=== PATIENT | male | born 1980 | race Caucasian/White ===

== ENCOUNTER 2022-03-13 06:24 | Inpatient (IN) | payer OTHER, SELFPAY ==
[2022-03-13] VITALS (29 sets, daily range): BP systolic 130–170; BP diastolic 94–113; PULSE 62–153; RESP 15–32; TEMP 36.2–38.1; O2SAT 93–99; BMI 25.2
--- NOTE | 2022-03-13 | ECHO_ITS ---
Patient Info Name: Eyal Curry Age: 41 years : 1980 Gender: Male Ht: 71 in Wt: 180 lbs BSA: 2.03 m2 HR: 98 bpm BP: 135 / 97 mmHg Heart Rhythm: Sinus Rhythm Technical Quality: Fair Exam Date: 03/13/2022 3:20 PM Exam Location: [facility] Card Pulmonary Patient Status: Inpatient Admit Date: 03/13/2022 Staff Ordering Physician: Geoff Gonzalez MD Special Trackwork Blacksmith: Nancy Lopez RDCS Attending Provider: Geoff Gonzalez MD Exam Type: CA echo doppler color flow Study Info Indications - HIGH BP, PNA Complete two-dimensional, color flow and Doppler transthoracic echocardiogram is performed. Summary 1. Complete two-dimensional, color flow and Doppler transthoracic echocardiogram is performed. 2. Normal left ventricular size with mild concentric left ventricular hypertrophy. Good systolic function of all segments with ejection fraction of 60-65%. No focal wall motion abnormalities. Diastolic function is indeterminate. 3. Left atrial chamber dimension is mildly enlarged. 4. No pulmonary hypertension, estimated pulmonary arterial systolic pressure is 29 mmHg. 5. No significant valve disease. 6. Normal sinus rhythm. Left Ventricle Left ventricular chamber dimension is normal. Left ventricular systolic function is normal, estimated at 60-65%. There is mildly increased left ventricular wall thickness. Left ventricular septal wall motion is normal. The left ventricular diastolic function is indeterminate. Right Ventricle Right ventricular chamber dimension is normal. Right ventricular systolic function is normal. Left Atria Left atrial chamber dimension is mildly enlarged. Right Atria Right atrial chamber dimension is normal. Aortic Valve The aortic valve is trileaflet. There is no aortic valve sclerosis. There is no aortic valve stenosis. There is no aortic valve regurgitation. Pulmonic Valve The pulmonic valve is normal. There is no pulmonic valve stenosis. There is no pulmonic regurgitation. Mitral Valve The mitral valve has normal leaflets. There is no mitral valve stenosis. There is trace mitral valve regurgitation. Tricuspid Valve The tricuspid valve leaflets are normal. There is no significant tricuspid valve stenosis. There is trace tricuspid valve regurgitation. No pulmonary hypertension, estimated pulmonary arterial systolic pressure is 29 mmHg. Pericardium/Pleural The pericardium appears normal. There is no pericardial effusion. Inferior Vena Cava Normal inferior vena cava with >50% collapse upon inspiration consistent with Empty right atrial pressure, 10 mmHg. Aorta The aortic root size at the sinus of Valsalva is normal. The prox ascending aorta size is normal. Left Ventricular Outflow Tract Name Value Normal LVOT Doppler LVOT Peak Gradient 5 mmHg LVOT Mean Gradient 2 mmHg LVOT VTI 19 cm LVOT VTI/AV VTI Ratio 0.9 Pulmonic Valve Name Value Normal
--- NOTE | ~2022-03-13 | CT_ITS ---
EXAMINATION: CTA chest abdomen DATE: 03/13/2022 07:00 INDICATION: Chest pain. Shortness of breath. TECHNIQUE: Computed tomographic angiography (CTA) of the chest and abdomen was performed with 100 mL Omnipaque-350 intravenous contrast. Automated exposure control and iterative reconstruction technique were employed. The dose-length product was 886.19 mGy-cm. Maximum intensity projection 3D-reconstruc tions of the aorta and other arteries were constructed by the technologist on a separate workstation. COMPARISON: None. FINDINGS: CHEST CTA: In the right lung upper lobe, there are nodules, groundglass opacities, airspace opacities, and septa l thickening. One of the nodules was cavitary. There is a small nodule in right middle lobe. There is a trace right pleural effusion. The heart size is normal. No pericardial effusion. There is no pulmo nary embolus. There is mild right hilar lymphadenopathy. Thoracic aorta is normal. There is mild thor acic spondylosis. ABDOMEN CTA: There is diffuse hepatic steatosis. The gallbladder, spleen, pancreas, adrenal glands, and kidneys ar e normal. There are no dilated loops of bowel. The appendix is normal. There are no pathologically en larged lymph nodes. There is no free intraperitoneal fluid. Abdominal aorta is normal. There is no si gnificant stenosis of the celiac axis, superior mesenteric artery, renal arteries, or inferior mesent geno artery. There is mild lumbar spondylosis. IMPRESSION: 1. Necrotizing pneumonia in right lung upper lobe. Small nodule in right middle lobe, likely infectio n. 2. Mild right hilar lymphadenopathy, likely reactive. 3. Normal aorta. 4. Diffuse hepatic steatosis. Reviewed, dictated and finalized at location A. IMPRESSION: 1. Necrotizing pneumonia in right lung upper lobe. Small nodule in right middle lobe, likely infection. 2. Mild right hilar lymphadenopathy, likely reactive. 3. Normal aorta. 4. Diffuse hepatic steatosis.
--- NOTE | ~2022-03-13 | US_ITS ---
US right upper quadrant DATE: 03/14/2022 08:31 INDICATION: Elevated liver function tests TECHNIQUE: Real-time imaging of liver, pancreas, gallbladder COMPARISON: March 13, 2022 CTA chest abdomen FINDINGS: There is hepatic steatosis. No hepatic space-occupying mass lesion is evident. Normal hepat opedal portal venous flow direction. No pancreatic mass lesion is evident. No gallstones or gallbladder wall thickening. Negative sonographic Moseley's sign. The common bile bhupinder t measures 5.8 mm, within normal range. IMPRESSION: Hepatic steatosis Reviewed, dictated and finalized at Location A. Reviewed, dictated and finalized at location A. IMPRESSION: Hepatic steatosis
--- NOTE | ~2022-03-13 | NM_ITS ---
EXAMINATION: NM renal flow and function DATE: 03/18/2022 14:38 INDICATION: Acute kidney injury. TECHNIQUE: 7.9 mCi Tc-99m MAG3 was administered IV. The patient was scanned in the supine position. A posterior abdominal radionuclide angiogram was obtained. A subsequent time course of static images of the kidneys, ureters, and bladder was obtained. COMPARISON: ultrasound 03/15/22 FINDINGS: The posterior abdominal radionuclide angiogram and sequential static images show normal siz e, position, and morphology of the kidneys. Peak renal parenchymal uptake was >20 min in right kidney and >20 min in left kidney (normal peak 3-5 minutes). The relative early renal uptake was 59% on th e right and 41% on the left (<40% is abnormal). No abnormalities of the ureters or bladder are seen. T1/2 for clearance of activity from the right kidney and proximal collecting system was too long to m easure. T1/2 for clearance of activity from the left kidney and proximal collecting system was too long to me asure. IMPRESSION: 1. Symmetric kidney function. 2. Delayed contrast uptake and clearance in both kidneys, consistent with decreased renal function. Reviewed, dictated and finalized at location B. IMPRESSION: 1. Symmetric kidney function. 2. Delayed contrast uptake and clearance in both kidneys, consistent with decr eased renal function.
--- NOTE | ~2022-03-13 | US_ITS ---
EXAMINATION: US renal BI DATE: 03/15/2022 11:08 INDICATION: Acute kidney injury TECHNIQUE: Multiple grayscale and Doppler ultrasound images of the kidneys were obtained. COMPARISON: None. FINDINGS: The right kidney measures 12.8 x 6.1 x 7.5 cm. The left kidney measures 12.3 x 5.8 x 6.1 cm . The kidneys demonstrate normal parenchymal echogenicity. There is no hydronephrosis. The bladder is unremarkable. IMPRESSION: 1. Normal kidneys without hydronephrosis. Reviewed, dictated and finalized at location B.
--- NOTE | 2022-03-13 06:27 | ECG_ITS ---
Measurements Intervals [place] Rate: 144 P: 65 MD: 133 QRS: 34 QRSD: 97 T: 70 QT: 327 QTc: 507 Interpretive Statements SINUS TACHYCARDIA, POSSIBLE ATRIAL FLUTTER NONSPECIFIC ST & T-WAVE ABNORMALITY ABNORMAL RHYTHM ECG NO PREVIOUS ECG AVAILABLE FOR COMPARISON Electronically Signed On 03-13-2022 13:45:35 CDT by Mariposa Crowe M.D.
--- NOTE | 2022-03-13 06:34 | ED.CHESTPAIN ---
HPI - Chest Pain General Chief Complaint: Chest Pain <Zabrina Torres Flowers III, DO - Last Filed: 03/13/22 07:15> Stated Complaint: Chest pain <Zabrina Torres Flowers III, DO - Last Filed: 03/13/22 07:15> Time Seen by Provider: 03/13/22 06:32 <Zabrina Torres Flowers III, DO - Last Filed: 03/13/22 07:15> Source: patient <Zabrina Torres Flowers III, DO - Last Filed: 03/13/22 07:15> Mode of arrival: ambulatory <Zabrina Torres Flowers III, DO - Last Filed: 03/13/22 07:15> Limitations: no limitations <Zabrina Torres Flowers III, DO - Last Filed: 03/13/22 07:15> History of Present Illness HPI narrative: Pt presents with midsternal CP that radiates through to back that awoke him frm sleep about 2 hours ago. Pt has never had an episode like this. Pt has no significant medical history. Pt is a smoker and denies FH of CAD <Zabrina Torres Flowers III, DO - Last Filed: 03/13/22 07:15> MD complaint: chest pain <Zabrina Torres Flowers III, DO - Last Filed: 03/13/22 07:15> Onset (ago): hour(s) (2) <Zabrina Torres Flowers III, DO - Last Filed: 03/13/22 07:15> Timing of current episode: constant <Zabrina Torres Flowers III, DO - Last Filed: 03/13/22 07:15> Prior episodes: No <Zabrina Torres Flowers III, DO - Last Filed: 03/13/22 07:15> Pain location: substernal <Zabrina Torres Flowers III, DO - Last Filed: 03/13/22 07:15> Pain radiation: back <Zabrina Torres Flowers III, DO - Last Filed: 03/13/22 07:15> Severity: severe <Zabrina Torres Flowers III, DO - Last Filed: 03/13/22 07:15> Quality: sharp <Zabrina Torres Flowers III, DO - Last Filed: 03/13/22 07:15> Relieving factors: nothing <Zabrina Torres Flowers III, DO - Last Filed: 03/13/22 07:15> Exacerbating factors: nothing <Zabrina Torres Flowers III, DO - Last Filed: 03/13/22 07:15> Associated symptoms: diaphoresis <Zabrina Torres Flowers III, DO - Last Filed: 03/13/22 07:15> Treatment prior to arrival: none <Zabrina Torres Flowers III, DO - Last Filed: 03/13/22 07:15> Risk Factors Coronary artery disease risk factors: smoking history <Zabrina Torres Flowers III, DO - Last Filed: 03/13/22 07:15> Thoracic aortic dissection risk factors: none <Zabrina Torres Flowers III, DO - Last Filed: 03/13/22 07:15> Related Data Allergies/Adverse Reactions: Allergies Allergy/AdvReac Type Severity Reaction Status Date / Time No Known Allergies Allergy Mild Verified 03/13/22 06:33 <Zabrina Torres Flowers III, DO - Last Filed: 03/13/22 07:15> Review of Systems Review of Systems: All systems reviewed & are unremarkable except as noted in HPI and below <Zabrina Torres Flowers III, DO - Last Filed: 03/13/22 07:15> PMFSH Family History Family History: Family History (Updated 07/14/14 @ 07:13 by DOCTOR UNKNOWN) Father Family history of throat cancer <Zabrina Torres Flowers III, DO - Last Filed: 03/13/22 07:15> Social History Social History: Social History Alcohol intake: never <Zabrina Torres Flowers III, DO - Last Filed: 03/13/22 07:15> Exam Const: General: cooperative and anxious <Zabrina Torres Flowers III, DO - Last Filed: 03/13/22 07:15> Nutritional Appearance: average body habitus <Zabrina Torres Flowers III, DO - Last Filed: 03/13/22 07:15> Orientation/consciousness: oriented to person <Zabrina Torres Flowers III, DO - Last Filed: 03/13/22 07:15> Limitations: no limitations <Zabrina Torres Flowers III, DO - Last Filed: 03/13/22 07:15> Neck: Neck: normal visual inspection <Zabrina Torres Flowers III, DO - Last Filed: 03/13/22 07:15> Chest: Chest palpation & inspection: normal inspection of the chest <Zabrina Torres Flowers III, DO - Last Filed: 03/13/22 07:15> Resp: Effort & Inspection: normal respiratory effort and able to speak in complete sentences <Zabrina Torres Flowers III, DO - Last Filed: 03/13/22 07:15> Auscultation: clear to auscultation bilaterally <Zabrina Torres Flowers III, DO - Last Filed: 03/13/22 07:15> Cardio: Rate: tachycardic <Zabrina Torres Flowers III,
[2022-03-13] MEDS: SODIUM CHLORIDE 0.9% IV 1,000 ML 999 ML (06:36)
[2022-03-13] MEDS: ONDANSETRON INJ 4 MG/2 ML VIAL IV PUSH (06:37)
[2022-03-13] MEDS: MORPHINE SULFATE (*CRX) 4 MG/ML INJ IV PUSH (06:37)
[2022-03-13 06:43] LABS: Basophils Absolute Auto 0.2 K/mm3 (0.0-0.1); Eosinophils Absolute Auto 0.2 K/mm3 (0-0.3); Eosinophils Percent Auto 0.6 % (0-4.4); Hematocrit 45.3 % (42.0-52.0); Hemoglobin 16.3 g/dL (14.0-18.0); Immature Granulocyte Absolute 0.37 K/mm3 (0.00-0.031); Immature Granulocyte Percent A 1.6 % (0-0.5); Lymphocytes Absolute Auto 3.45 K/mm3 (0.9-3.2); Mean Corpuscular Hemoglobin 33.9 pg (26-34); Mean Corpuscular Volume 94.2 fl (80-100); Monocytes Absolute Auto 3.3 K/mm3 (0.1-0.6); Monocytes Percent Auto 14.2 % (2.6-8.5); Neutrophils Absolute Auto 15.9 K/mm3 (1.3-6.7); Neutrophils Percent Auto 67.9 % (45.5-73.1); Platelet Count Result 334 k/mm3 (150-375); Red Blood Count 4.81 M/mm3 (4.6-6.20); Red Cell Distribution Width 11.4 % (11.5-14.5); White Blood Count 23.5 K/mm3 (4.5-10.0)
[2022-03-13 06:50] LABS: Estimated Glomerular Filt Rate > 60
[2022-03-13 06:59] LABS: Partial Thromboplastin Time 34.4 SECONDS (22.3-36.8); Prothrombin Time 12.4 Seconds (11.1-14.7)
[2022-03-13 07:00] LABS: D Dimer 1.37 ug/mL (<0.48); Lymphocytes Percent Auto 14.7 % (18.3-44.2)
[2022-03-13 07:03] LABS: Alanine Aminotransferase 138 U/L (4-50); Albumin Level 4.3 g/dL (3.5-5.1); Alkaline Phosphatase 133 U/L (38-126); Anion Gap 10 mmol/L (8-16); Aspartate Amino Transferase 348 U/L (17-59); Bilirubin,Total 0.6 mg/dL (0.2-1.3); Blood Urea Nitrogen 3 mg/dL (9-20); Calcium 9.6 mg/dL (8.4-10.2); Carbon Dioxide 28 mmol/L (22-30); Chloride 99 mmol/L (98-107); Estimated Glomerular Filt Rate > 60; Glucose 144 mg/dL (65-110); Lipase 423 U/L (23-300); Potassium 3.5 mmol/L (3.4-5.0); Sodium 137 mmol/L (137-145)
[2022-03-13 07:15] LABS: NT Pro B Type Natriuretic Pept 105 pg/mL (5-100); Troponin I < 0.012 ng/mL (0.000-0.034)
[2022-03-13] MEDS: AMPICILLIN SULB 3 GM/NS 100 ML 3 GM/100 ML VIAL IVPB (07:51)
[2022-03-13 07:58] LABS: Lactic Acid Reflex 0.8 mmol/L (0.7-2.0)
[2022-03-13] MEDS: ACETAMINOPHEN 325 MG TABLET 650 MG PO (08:31)
[2022-03-13] MEDS: HYDROmorphone HCL INJ (*CRX) 1 MG/ML SYR 0.5 MG IV PUSH (08:32)
[2022-03-13] MEDS: LACTATED RINGERS 1,000 ML 125 ML IV CONT (08:33)
[2022-03-13 10:10] LABS: Troponin I < 0.012 ng/mL (0.000-0.034)
--- NOTE | 2022-03-13 10:37 | ADMGEN ---
This patient, Eyal Curry, was admitted to [facility] Surg Room 327-01. Patient/family oriented to hospital policies and general routines including ID bracelet, bed and alarms, visiting hours, pain management, procedures, bathroom and other care routines, personal items, smoking policy, room service/diet, and visiting hours. Information on how to activate the Rapid Response Team has been discussed. Patient/Family are encouraged to report perceived risks to care and to ask questions if they do not understand what they are told or what they should do.
--- NOTE | 2022-03-13 11:16 | PM.IMHP ---
H&P: HPI History of Present Illness Date/Time: 03/13/22 11:16 Chief Complaint: Chest pain Narrative: 41yo male with PTSD and chronic low back pain here for chest pain. Patient has been feeling well with the exception of some mild rhinorrhea up until the past 2-3 days prior to admission. Around that time, he developed cough productive brownish sputum. He had a dull right-sided chest pain. He was having chills with diaphoresis. No fevers. No sick contacts. No recent travel. No exposure to farm animals. He has city water. He is unemployed. He does smoke marijuana at night most evenings. He gets his marijuana from a dispensary. He does smoke tobacco as well. He has not had a flu vaccine but has had 2 COVID vaccines with his last vaccine being 6 months ago. He has also been having occasional sharp headache and neck pain although the neck pain is resolved currently. He denies any nausea, vomiting, diarrhea, constipation, abdominal pain, dysuria, hematuria, numbness or tingling in hands or feet or weakness in the arms or legs. No rash. He does have chronic low back pain they takes ibuprofen 3 to 4 times a week. Patient was awoken this morning from sleep with right-sided chest pain. It was severe and pleuritic in nature. He presented to the emergency room for evaluation. In the emergency room, his blood pressure was 153/113. Heart rate was 153. EKG showed sinus tachycardia and nonspecific ST T wave changes. White count was 23 K. D-dimer was positive. Glucose was 144. AST 348 and ALT 138. Lipase slightly elevated at 423. Troponin negative x2. CTA of the chest shows necrotizing pneumonia in the right upper lobe as well as small nodules in the right middle lobe likely infectious. He had hilar adenopathy and diffuse hepatic steatosis. Sputum and blood cultures were collected. He was given morphine, Zofran, Dilaudid and Tylenol. He was also given IV fluids with improvement his heart rate. He was given Unasyn and vancomycin in the emergency room and admitted for further care. 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 He is . He has a teenage daughter. He denies any history of drug use except for the marijuana use as mentioned above. She smoked up to 1.5 pack per day for total of 5-6 years when he was in the [employer]. He switched to vaping and using nicotine gum and has been intermittently using nicotine for the past 20 years. He started smoking 10 months ago and is currently smoking 5 cigarettes a day. He drinks 3-5 nights per week usually consuming 5-6 drinks per night. He was in [place] and saw combat. 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 He nominates his father Kurt to be the individual would make medical decisions for him if he is unable. Years smoked: 1 Smoking status: Current every day smoker Tobacco type: cigarettes Second hand tobacco smoke exposure: Yes Alcohol intake: current Drinks per week: 25 Substance use: current Substance use type: marijuana Spiritual care concerns: No Meds Home Medications and Allergies Home Medications Medication Instructions Recorded Confirmed Type No Home Medications 03/13/22 03/13/22 History Allergies Allergy/AdvReac Type Severity Reaction Status Date / Time No Known All
--- NOTE | 2022-03-13 11:21 | PCCCNOTE ---
Addendum entered by Shayna Tsang RN 03/13/22 11:56: [facility] Notification completed- [id number] Phone call received from patient's Mother, advised of process that we follow and pending a return call from bed health science specialist. Advised that on-line notification will be completed after our phone call. She wants to make sure director medicare sales documented time of call to [facility]. Advised that in the notes, it shows the time and that director medicare sales wrote the name of the bed specialist in the notes. Original Note: VM received from patient's Mom Zana stating that she is very considered about insurance payment because he is [facility] only and does not have any money to pay a hospital bill if we have not followed the process. Phone call to Caroline Campbell at the [facility], no answer left vm message requesting a bed, awaiting a call back. Return phone call to patient's mom Zana at [phone], no answer left a message stating that VM has been left with the bed health science specialist at the [facility] and awaiting a call back.
[2022-03-13 12:31] LABS: Glucose Point of Care 121 mg/dl (65-105)
[2022-03-13 12:53] LABS: Troponin I < 0.012 ng/mL (0.000-0.034)
[2022-03-13] MEDS: THIAMINE HCL 100 MG TABLET PO (13:10)
[2022-03-13] MEDS: FOLIC ACID 1 MG TABLET PO (13:10)
[2022-03-13] MEDS: LACTATED RINGERS 1,000 ML 100 ML IV CONT (13:11)
[2022-03-13] MEDS: NICOTINE (*PBKC) 14 MG PATCH 1 PATCH TRANSDERM (14:31)
[2022-03-13] MEDS: HYDROcodone/acetaminophen (*CRX) 5-325 MG TABLET 1 TAB PO ×2 (14:32→20:43)
--- NOTE | 2022-03-13 14:54 | PC.NURSE ---
On 03/13/22, the student, Ml Rachel, provided care and completed [facility] documentation on this patient. I have reviewed the student's documentation and agree with the findings.
[2022-03-13 16:18] LABS: Glucose Point of Care 118 mg/dl (65-105)
[2022-03-13] MEDS: chlordiazePOXIDE (*CRX) 25 MG CAPSULE PO (18:14)
[2022-03-13] MEDS: FAMOTIDINE 20 MG TABLET PO (20:41)
[2022-03-14] VITALS (18 sets, daily range): BP systolic 125–127; BP diastolic 86–98; PULSE 80–127; RESP 16–20; TEMP 35.6–36.2; O2SAT 97–99
[2022-03-14] MEDS: chlordiazePOXIDE (*CRX) 25 MG CAPSULE PO ×5 (00:13→23:01)
[2022-03-14] MEDS: KETOROLAC 15 MG/ML VIAL (*BKC) IV PUSH ×3 (00:13→12:42)
[2022-03-14] MEDS: LACTATED RINGERS 1,000 ML 100 ML IV CONT (02:55)
[2022-03-14] MEDS: HYDROcodone/acetaminophen (*CRX) 5-325 MG TABLET 1 TAB PO ×4 (02:56→23:01)
[2022-03-14 06:07] LABS: Basophils Absolute Auto 0.2 K/mm3 (0.0-0.1); Basophils Percent Auto 1.7 % (0.2-1.2); Eosinophils Absolute Auto 0.3 K/mm3 (0-0.3); Eosinophils Percent Auto 2.7 % (0-4.4); Hematocrit 39.1 % (42.0-52.0); Hemoglobin 12.7 g/dL (14.0-18.0); Immature Granulocyte Absolute 0.24 K/mm3 (0.00-0.031); Immature Granulocyte Percent A 2.5 % (0-0.5); Lymphocytes Absolute Auto 2.16 K/mm3 (0.9-3.2); Lymphocytes Percent Auto 22.1 % (18.3-44.2); Mean Corpuscular HGB Conc 32.5 g/dl (32-36); Mean Corpuscular Hemoglobin 33.8 pg (26-34); Mean Platelet Volume 9.1 fl (7.4-10.4); Monocytes Absolute Auto 1.3 K/mm3 (0.1-0.6); Monocytes Percent Auto 13.5 % (2.6-8.5); Neutrophils Absolute Auto 5.6 K/mm3 (1.3-6.7); Neutrophils Percent Auto 57.5 % (45.5-73.1); Platelet Count Result 217 k/mm3 (150-375); Red Blood Count 3.76 M/mm3 (4.6-6.20); Red Cell Distribution Width 11.9 % (11.5-14.5); White Blood Count 9.8 K/mm3 (4.5-10.0)
[2022-03-14 06:26] LABS: Alanine Aminotransferase 85 U/L (4-50); Albumin Level 3.1 g/dL (3.5-5.1); Alkaline Phosphatase 65 U/L (38-126); Anion Gap 5 mmol/L (8-16); Aspartate Amino Transferase 142 U/L (17-59); Bilirubin,Total 0.5 mg/dL (0.2-1.3); Blood Urea Nitrogen 2 mg/dL (9-20); Calcium 8.2 mg/dL (8.4-10.2); Carbon Dioxide 29 mmol/L (22-30); Chloride 101 mmol/L (98-107); Estimated CRCL calculation 174 ml/min; Estimated Glomerular Filt Rate > 60; Glucose 112 mg/dL (65-110); Lipase 130 U/L (23-300); Potassium 2.7 mmol/L (3.4-5.0); Sodium 135 mmol/L (137-145)
[2022-03-14 06:34] LABS: CRP 13.2 mg/dL (<1.0)
[2022-03-14 06:48] LABS: Hemoglobin A1C 4.6 % (<5.7)
[2022-03-14 08:43] LABS: Glucose Point of Care 115 mg/dl (65-105)
[2022-03-14 09:08] LABS: Hepatitis B Surface Antigen Negative (Negative)
[2022-03-14 09:13] LABS: HAV RESULT Negative (Negative); Hepatitis B Core IgM Result Negative (Negative)
[2022-03-14 09:25] LABS: Hepatitis C Virus Antibody Negative (Negative)
[2022-03-14] MEDS: POTASSIUM CHLORIDE 20 MEQ TABLET 40 MEQ PO ×2 (09:40→14:10)
[2022-03-14] MEDS: FAMOTIDINE 20 MG TABLET PO ×2 (09:41→19:59)
[2022-03-14] MEDS: THIAMINE HCL 100 MG TABLET PO (09:41)
[2022-03-14] MEDS: ENOXAPARIN 40 MG/0.4 ML SYRINGE SUB-Q (09:41)
[2022-03-14] MEDS: NICOTINE (*PBKC) 14 MG PATCH 1 PATCH TRANSDERM (09:41)
[2022-03-14] MEDS: FOLIC ACID 1 MG TABLET PO (09:41)
[2022-03-14 12:19] LABS: Glucose Point of Care 151 mg/dl (65-105)
[2022-03-14 12:24] LABS: Magnesium 1.4 mg/dL (1.6-2.3)
[2022-03-14] MEDS: MAGNESIUM SULF 2 GM/WATER 50ML 2 GM/50 ML BAG IVPB (14:10)
[2022-03-14 14:27] LABS: Folic Acid > 20.0 ng/mL (2.76->20)
--- NOTE | 2022-03-14 15:38 | PM.IMPN ---
Progress Note: A&P Assessment and Plan (1) Necrotizing pneumonia: Code(s): J85.0 - Gangrene and necrosis of lung Status: Acute Assessment and Plan: Patient presents with pleuritic chest pain and found to have elevated white count and CT showing necrotizing pneumonia right upper lobe. No obvious risk factors pointing toward a specific etiology. He does smoke tobacco and marijuana regularly. BCx NGTD. Sputum cx pending. Echo normal. Currently on vancomycin and Zosyn. Follow-up on sputum and blood cultures. Transition to oral abx if BCx negative tomorrow. (2) Sepsis: Qualifiers: Sepsis acute organ dysfunction status: unspecified Sepsis type: sepsis due to unspecified organism Qualified Code(s): A41.9 - Sepsis, unspecified organism Code(s): A41.9 - Sepsis, unspecified organism Status: Acute Assessment and Plan: Present on admission with leukocytosis, low-grade fever, tachycardia. Related to pneumonia. Symptoms have resolved. Treatment as above. (3) Elevated LFTs: Code(s): R79.89 - Other specified abnormal findings of blood chemistry Status: Acute Assessment and Plan: AST 348 and ALT 138. AST greater than ALT so consider alcohol induced. No history of liver problems. He does drink alcohol excessively. RUQ showing hepatic steatosis. He was again educated about the benefits of abstaining from alcohol use. Continue monitor and trend (4) Alcohol abuse: Code(s): F10.10 - Alcohol abuse, uncomplicated Status: Acute Assessment and Plan: Patient was educated about the benefits of abstain from alcohol. Continue thiamine and folate. CIWA scores noted. Librium scheduled. Wean Librium as toelrated. Ativan available prn now. (5) Hyperglycemia: Code(s): R73.9 - Hyperglycemia, unspecified Status: Acute Assessment and Plan: Glucose mildly elevated but related to stress response. A1c 4.6. Continue sliding scale protocol. (6) Elevated blood pressure reading: Code(s): R03.0 - Elevated blood-pressure reading, without diagnosis of hypertension Status: Acute Assessment and Plan: Patient with elevated blood pressure on admission to as high as 170/106. With IV fluids and antibiotics, blood pressure has improved today. Elevated blood pressure probably stress response. Will continue to monitor. (7) Elevated lipase: Code(s): R74.8 - Abnormal levels of other serum enzymes Status: Acute Assessment and Plan: Lipase mildly elevated. No evidence of pancreatitis on CT scan. Repeat lipase normal. Resolved (8) Tachycardia: Code(s): R00.0 - Tachycardia, unspecified Status: Acute Assessment and Plan: Patient with significant tachycardia on admission related to pain. With IV fluids and control of his pain, heart rate has improved. Continue pain control. Will stop IV fluids since eating okay. (9) Tobacco abuse: Code(s): Z72.0 - Tobacco use Status: Acute Assessment and Plan: Patient was educated about the benefits of smoking cessation. (10) DVT prophylaxis: Code(s): Z29.9 - Encounter for prophylactic measures, unspecified Status: Acute Assessment and Plan: Lovenox Subjective Date/time seen: 03/14/22 15:38 Interval history: 41yo male with PTSD, alcohol and tobacco abuse here for chest pain found to have pneumonia. Patient feeling better today. He is using incentive spirometry and is getting good readings. His cough is better. Cough is still productive whitish brown color. Chest pain is much better. He has been weaned to room air. Patient's CIWA score was climbing so Librium was scheduled earlier today. Exam Narrative: AF 96.1 125/86 85 18 98% ra Gen - NARD Chest - CTA bilaterally. nml RR CV - RRR S1/S2; Tele showing no signifincat dysrhythmias Abd -soft. Nontender. Nondistended. Positive bowel s
[2022-03-14 16:32] LABS: Glucose Point of Care 97 mg/dl (65-105)
[2022-03-14 18:45] LABS: Vancomycin Trough 9.4 ug/mL (10.0-20.0)
[2022-03-14 21:00] LABS: Glucose Point of Care 115 mg/dl (65-105)
[2022-03-15] VITALS (15 sets, daily range): BP systolic 131–148; BP diastolic 97–99; PULSE 65–117; RESP 16–22; TEMP 36.4–37; O2SAT 97–100
[2022-03-15] MEDS: HYDROcodone/acetaminophen (*CRX) 5-325 MG TABLET 1 TAB PO ×3 (05:05→20:05)
[2022-03-15] MEDS: chlordiazePOXIDE (*CRX) 25 MG CAPSULE PO ×3 (05:06→22:08)
[2022-03-15 06:21] LABS: Anion Gap 6 mmol/L (8-16); Blood Urea Nitrogen 7 mg/dL (9-20); Calcium 8.4 mg/dL (8.4-10.2); Carbon Dioxide 29 mmol/L (22-30); Chloride 103 mmol/L (98-107); Estimated CRCL calculation 40 ml/min; Estimated Glomerular Filt Rate 30; Glucose 133 mg/dL (65-110); Sodium 138 mmol/L (137-145)
[2022-03-15 08:08] LABS: Glucose Point of Care 124 mg/dl (65-105)
[2022-03-15] MEDS: POTASSIUM CHLORIDE 20 MEQ TABLET PO (08:59)
[2022-03-15] MEDS: SODIUM CHLORIDE 0.9% IV 1,000 ML 100 ML IV CONT ×2 (08:59→17:38)
[2022-03-15] MEDS: DOXYCYCLINE HYCLATE 100 MG TABLET PO ×2 (09:00→20:05)
[2022-03-15] MEDS: NICOTINE (*PBKC) 14 MG PATCH 1 PATCH TRANSDERM (09:00)
[2022-03-15] MEDS: THIAMINE HCL 100 MG TABLET PO (09:00)
[2022-03-15] MEDS: FAMOTIDINE 20 MG TABLET PO ×2 (09:00→20:05)
[2022-03-15] MEDS: ENOXAPARIN 40 MG/0.4 ML SYRINGE SUB-Q (09:00)
[2022-03-15] MEDS: FOLIC ACID 1 MG TABLET PO (09:00)
[2022-03-15 09:28] LABS: Add Urine Microscopic? YES; Appearance Urine Clear (Clear); Bilirubin Urine Negative (Negative); Blood Urine Negative (Negative); Color Urine Yellow (Yellow); Glucose Urine UA Negative (Negative); Ketones Urine Negative (Negative); Leukocyte Esterase Ur Negative LEU/UL (Negative); Mucus Urine Rare /lpf; Nitrate Urine Negative (Negative); Protein Urine 1+ mg/dL (Negative); RBC Urine 0-2 /hpf (0-2); Specific Grav Ur 1.006 (1.001-1.035); Urobilinogen Urine Negative mg/dL (<2.0); WBC Urine 0-3 /hpf
[2022-03-15 09:36] LABS: Creatinine Urine 63.7 mg/dL
[2022-03-15 09:41] LABS: Sodium Urine Random 23 meq/L
[2022-03-15 09:51] LABS: Eosinophil Urine None Seen % (None Seen)
[2022-03-15 11:53] LABS: Anion Gap 4 mmol/L (8-16); Blood Urea Nitrogen 8 mg/dL (9-20); Calcium 8.9 mg/dL (8.4-10.2); Carbon Dioxide 33 mmol/L (22-30); Chloride 102 mmol/L (98-107); Estimated CRCL calculation 33 ml/min; Estimated Glomerular Filt Rate 24; Glucose 121 mg/dL (65-110); Potassium 3.8 mmol/L (3.4-5.0); Sodium 139 mmol/L (137-145)
[2022-03-15 11:57] LABS: CRP 5.8 mg/dL (<1.0); Creatine Kinase 25 U/L (55-170)
[2022-03-15 12:01] LABS: Complement C3 110 mg/dL (88-165)
[2022-03-15 12:18] LABS: Glucose Point of Care 121 mg/dl (65-105)
[2022-03-15 12:34] LABS: HIV 1/2 Ab P24 Ag Result Negative (Negative)
--- NOTE | 2022-03-15 14:21 | PM.IMPN ---
Progress Note: A&P Assessment and Plan (1) KRISTINE (acute kidney injury): Code(s): N17.9 - Acute kidney failure, unspecified Status: Acute Assessment and Plan: Patient has developed KRISTINE probably from the contrast induced vs ATn from the infection vs from abx (AIN?). Nonoliguric. Renal US normal. UA normal. Ueos negative. HIV negative. Continue IV fluids. Nephrology consult. Change abx. (2) Necrotizing pneumonia: Code(s): J85.0 - Gangrene and necrosis of lung Status: Acute Assessment and Plan: Patient presents with pleuritic chest pain and found to have elevated white count and CT showing necrotizing pneumonia right upper lobe. No obvious risk factors pointing toward a specific etiology. He does smoke tobacco and marijuana regularly. BCx NGTD. Sputum cx growing Group A Strept. Echo normal. Was on vancomycin and Zosyn. Changed to Rocephin and Doxycycline. (3) Sepsis: Qualifiers: Sepsis acute organ dysfunction status: unspecified Sepsis type: sepsis due to unspecified organism Qualified Code(s): A41.9 - Sepsis, unspecified organism Code(s): A41.9 - Sepsis, unspecified organism Status: Acute Assessment and Plan: Present on admission with leukocytosis, low-grade fever, tachycardia. Related to pneumonia. Symptoms have resolved. Treatment as above. (4) Elevated LFTs: Code(s): R79.89 - Other specified abnormal findings of blood chemistry Status: Acute Assessment and Plan: AST 348 and ALT 138. AST greater than ALT so consider alcohol induced. No history of liver problems. He does drink alcohol excessively. RUQ showing hepatic steatosis. He was again educated about the benefits of abstaining from alcohol use. Continue monitor and trend. (5) Alcohol abuse: Code(s): F10.10 - Alcohol abuse, uncomplicated Status: Acute Assessment and Plan: Patient was educated about the benefits of abstain from alcohol. Continue thiamine and folate. CIWA scores noted. Librium scheduled. Will begin to wean Librium today. Ativan available prn now. (6) Hyperglycemia: Code(s): R73.9 - Hyperglycemia, unspecified Status: Acute Assessment and Plan: Glucose mildly elevated but related to stress response. A1c 4.6. Stop sliding scale protocol. (7) Elevated blood pressure reading: Code(s): R03.0 - Elevated blood-pressure reading, without diagnosis of hypertension Status: Acute Assessment and Plan: Patient with elevated blood pressure on admission to as high as 170/106. With IV fluids and antibiotics, blood pressure has improved today. Elevated blood pressure probably stress response. Will continue to monitor. (8) Elevated lipase: Code(s): R74.8 - Abnormal levels of other serum enzymes Status: Acute Assessment and Plan: Lipase mildly elevated. No evidence of pancreatitis on CT scan. Repeat lipase normal. Resolved (9) Tachycardia: Code(s): R00.0 - Tachycardia, unspecified Status: Acute Assessment and Plan: Patient with significant tachycardia on admission related to pain. With IV fluids and control of his pain, heart rate has improved. Follow (10) Tobacco abuse: Code(s): Z72.0 - Tobacco use Status: Acute Assessment and Plan: Patient was educated about the benefits of smoking cessation. (11) DVT prophylaxis: Code(s): Z29.9 - Encounter for prophylactic measures, unspecified Status: Acute Assessment and Plan: Lovenox (lower dose if renal function worsens) Subjective Date/time seen: 03/15/22 14:21 Interval history: 41yo male with PTSD, alcohol and tobacco abuse here for chest pain found to have pneumonia. Feels tired today. Normal UOP. Eating okay. No n/v. Very minimal right sided pleuritic chest pain. Cough mostly nonproductive. No SOB. no diaphoresis. Exam Narrative: AF 98.6 131/97 88 22 97
[2022-03-15 14:52] LABS: Pneumococcal Antigen Urine Not Detected (Not Detected)
[2022-03-15] MEDS: MORPHINE SULFATE (*CRX) 2 MG/ML INJ IV PUSH ×2 (17:28→23:21)
[2022-03-16] VITALS (8 sets, daily range): BP systolic 123–132; BP diastolic 85–95; PULSE 70–106; RESP 16–18; TEMP 36–36.8; O2SAT 96–99
[2022-03-16] MEDS: SODIUM CHLORIDE 0.9% IV 1,000 ML 100 ML IV CONT ×2 (03:18→13:06)
[2022-03-16] MEDS: chlordiazePOXIDE (*CRX) 25 MG CAPSULE PO ×3 (05:41→22:19)
[2022-03-16] MEDS: HYDROcodone/acetaminophen (*CRX) 5-325 MG TABLET 1 TAB PO ×2 (05:42→13:12)
[2022-03-16 05:51] LABS: Basophils Absolute Auto 0.1 K/mm3 (0.0-0.1); Basophils Percent Auto 1.2 % (0.2-1.2); Eosinophils Absolute Auto 0.2 K/mm3 (0-0.3); Hematocrit 37.8 % (42.0-52.0); Hemoglobin 12.6 g/dL (14.0-18.0); Immature Granulocyte Absolute 0.24 K/mm3 (0.00-0.031); Immature Granulocyte Percent A 2.4 % (0-0.5); Lymphocytes Absolute Auto 1.61 K/mm3 (0.9-3.2); Lymphocytes Percent Auto 15.9 % (18.3-44.2); Mean Corpuscular HGB Conc 33.3 g/dl (32-36); Mean Corpuscular Hemoglobin 33.4 pg (26-34); Mean Corpuscular Volume 100.3 fl (80-100); Mean Platelet Volume 8.7 fl (7.4-10.4); Monocytes Absolute Auto 1.5 K/mm3 (0.1-0.6); Monocytes Percent Auto 14.9 % (2.6-8.5); Neutrophils Absolute Auto 6.5 K/mm3 (1.3-6.7); Neutrophils Percent Auto 63.6 % (45.5-73.1); Platelet Count Result 226 k/mm3 (150-375); Red Blood Count 3.77 M/mm3 (4.6-6.20); Red Cell Distribution Width 12.1 % (11.5-14.5); White Blood Count 10.1 K/mm3 (4.5-10.0)
[2022-03-16 06:25] LABS: Alanine Aminotransferase 151 U/L (4-50); Albumin Level 2.9 g/dL (3.5-5.1); Alkaline Phosphatase 86 U/L (38-126); Anion Gap 5 mmol/L (8-16); Aspartate Amino Transferase 358 U/L (17-59); Bilirubin,Total 0.7 mg/dL (0.2-1.3); Blood Urea Nitrogen 7 mg/dL (9-20); Calcium 7.9 mg/dL (8.4-10.2); Carbon Dioxide 27 mmol/L (22-30); Chloride 108 mmol/L (98-107); Estimated CRCL calculation 28 ml/min; Estimated Glomerular Filt Rate 19; Glucose 114 mg/dL (65-110); Magnesium 1.8 mg/dL (1.6-2.3); Phosphorus 3.7 mg/dL (2.5-4.5); Potassium 3.4 mmol/L (3.4-5.0); Sodium 140 mmol/L (137-145)
[2022-03-16] MEDS: THIAMINE HCL 100 MG TABLET PO (08:19)
[2022-03-16] MEDS: NICOTINE (*PBKC) 14 MG PATCH 1 PATCH TRANSDERM (08:19)
[2022-03-16] MEDS: DOXYCYCLINE HYCLATE 100 MG TABLET PO ×2 (08:19→20:34)
[2022-03-16] MEDS: FAMOTIDINE 20 MG TABLET PO ×2 (08:19→20:34)
[2022-03-16] MEDS: FOLIC ACID 1 MG TABLET PO (08:19)
[2022-03-16] MEDS: ENOXAPARIN 40 MG/0.4 ML SYRINGE SUB-Q (08:19)
[2022-03-16] MEDS: MORPHINE SULFATE (*CRX) 2 MG/ML INJ IV PUSH ×3 (08:22→22:20)
--- NOTE | 2022-03-16 09:44 | PM.CNNEP ---
Assessment and Plan Additional Plan 1. Eyal has acute kidney injury. His creatinine was normal on admission. His creatinine marycarmen about 48hours after he got his contrast. I suspect the he was also dehydrated when he got here. In addition he was taking some Advil before he came in. With the latter 2 risk factors most likely he has contrast induced nephrotoxicity. Pneumonia could also cause renal failure however since his kidneys were normal when he got here I would think this is less likely the cause. antibiotics can cause the kidney issues as well but usually if so this happens more gradually. Other causes such as glomerulonephritis or possible. With the necrotizing pneumonia he could have something like Rg's or Goodpasture's syndrome however he does not have blood in the urine and his symptoms are all getting better with antibiotics alone and he has not received any steroids. So I think this is also less likely but we can check some serology just in case at this point will continue IV fluids. He will continue his antibiotics. Will check serology. I do not think we need to give steroids right now. 2. The patient has disc disease. He is getting meds for this. 3. The patient drinks heavily. He is going to stop. 4. Patient smokes 5 cigarettes per day. He is going to try stopping this to. History of Present Illness Reason for Consult Consult date: 03/16/22 Chief Complaint Chief complaint: Necrotizing pneumonia History of Present Illness Narrative: Eyal is a very pleasant 41-year-old gentleman who has medical problems including slipped discs, chronic alcohol use, and chronic tobacco use. Patient says that he was well until about a week before admission when he started getting sinus congestion and cough. He then developed some shortness of breath worsened cough and some right-sided chest pain. He eventually came to the emergency room. Chest x-ray showed a pneumonia. He had a CT of the chest with contrast as well. He was treated with antibiotics. He has gotten better. His cough is better he can breathe better and his chest pain is also better. His creatinine was normal on admission than on the was up to 2.4 and today is up to 3.5. So renal consultation was requested. The patient denies any sores in his mouth, hair loss in clumps, skin rash, malar rash, joint pains (other than his chronic back issues). He does take an occasional Advil at home. He did take some Advil before he came in the hospital because of his sinus congestion but he has not had any nonsteroidal anti-inflammatory agents since admission. Past history is as above. Allergies are none. Social history: He drinks about 3-5 drinks per day. Some days more than others. He smokes 5 cigarettes per day. But he is going to quit both. Review of Systems Constitutional: Constitutional: Reports no additional constitutional complaints Eyes: Eyes: Reports no additional eye complaints ENT: Reports system reviewed and no additional complaints, except as documented Cardiovascular: Cardiovascular: Reports no additional cardiovascular complaints Respiratory: Respiratory: Reports no additional respiratory complaints Gastrointestinal: Gastrointestinal: Reports no additional gastrointestinal complaints Genitourinary: Genitourinary: Reports no additional male genitourinary complaints Musculoskeletal: Musculoskeletal: Reports no additional musculoskeletal complaints Integumentary/Breasts: Skin/Breast: Reports system reviewed and no additional complaints, except as docu Neurologic: Reports system reviewed and no additional complaints, except as documented Psychiatric: Psychiatric: Reports no additional psychiatric complaints Endocrine: Endocrine: Reports no additional endocrine complaints [facility] Past Medical History Medical History Hearing loss Low back pain PTS
[2022-03-16 10:44] LABS: Complement C3 110 mg/dL (88-165)
[2022-03-16 13:28] LABS: Add Urine Microscopic? YES; Appearance Urine Clear (Clear); Bilirubin Urine Negative (Negative); Blood Urine 1+ (Negative); Color Urine Straw (Yellow); Glucose Urine UA Negative (Negative); Ketones Urine Negative (Negative); Leukocyte Esterase Ur Negative LEU/UL (NEGATIVE); Nitrate Urine Negative (Negative); Protein Urine Negative (Negative); RBC Urine 0-2 /hpf (0-2); Urobilinogen Urine Negative mg/dL (<2.0); WBC Urine 0-3 /hpf (0-3)
[2022-03-16 13:31] LABS: Creatinine Urine 48.5 mg/dL; Total Protein Urine Random 37 mg/dL; Ur Ttl Prot Creatinine Ratio 0.76 mg/mg (0-0.20)
[2022-03-16 13:33] LABS: Sodium Urine Random 22 meq/L
[2022-03-16 13:35] LABS: Specific Grav Ur 1.002 (1.001-1.035)
[2022-03-16] MEDS: LORazepam INJ (*CRX) 2 MG/ML VIAL 0.5 MG IV PUSH ×2 (16:56→22:23)
[2022-03-16] MEDS: hydrOXYzine HCL 25 MG TABLET PO (16:56)
--- NOTE | 2022-03-16 16:56 | PM.IMPN ---
Progress Note: A&P Assessment and Plan (1) KRISTINE (acute kidney injury): Code(s): N17.9 - Acute kidney failure, unspecified Status: Acute Assessment and Plan: Acute kidney injury likely secondary to ATN from contrast induced nephropathy. Anticipate this to get slightly worse before it gets better, patient asymptomatic with good urine output. Appreciate Nephrology consultation, continue IV fluids. (2) Necrotizing pneumonia: Code(s): J85.0 - Gangrene and necrosis of lung Status: Acute Assessment and Plan: Resolving, continue current antibiotics of azithromycin and doxycycline. (3) PTSD (post-traumatic stress disorder): Code(s): F43.10 - Post-traumatic stress disorder, unspecified Status: Inactive Assessment and Plan: Discussed use of CBT at discharge to manage the symptoms, appears to be worsening without his coping skills at home, will trial hydroxyzine and Ativan sparingly as needed while inpatient only. (4) DVT prophylaxis: Code(s): Z29.9 - Encounter for prophylactic measures, unspecified Status: Acute Assessment and Plan: Renally dosed Lovenox (5) Alcohol abuse: Code(s): F10.10 - Alcohol abuse, uncomplicated Status: Acute Assessment and Plan: Monitor, no signs of DTs, continue current management recommend continued cessation upon discharge (6) Tobacco abuse: Code(s): Z72.0 - Tobacco use Status: Acute Assessment and Plan: Smoking cessation discussed for greater than 3 minutes with patient Subjective Date/time seen: 03/16/22 13:00 Interval history: 41-year-old male with past medical history significant for PTSD, alcohol and tobacco abuse presenting with chest pain found to have necrotizing pneumonia and sepsis, resolving. Patient states he feels much better today than yesterday. Denies any chest pain or shortness of breath. Dry cough noted. No nausea vomiting or diarrhea. No events noted overnight. Review of Systems Review of Systems: All systems reviewed & are unremarkable except as noted in HPI and below Constitutional: Constitutional: Reports as per HPI Exam Const: General: no acute distress HENMT: Mouth: Yes moist mucous membranes Eyes: General: appearance normal, both eyes and all related structures Neck: Neck: supple and no JVD Carotids: no bruits Resp: Auscultation: crackles and diminished lung sounds Cardio: Rate: regular rate Rhythm: regular rhythm Heart sounds: no murmurs GI: Inspection: non-distended GI Palp: Yes Soft to palpation and No Tenderness to palpation present (GI) Skin: General skin exam: normal color and no rashes or lesions noted Neuro: Cognition (Neuro): normal cognition Speech: normal speech Motor exam (neuro): Normal motor muscle tone present throughout Extrem: General: normal to inspection Psych: Affect: Sad affect present and Anxious affect present Thought content: Yes Normal thought content present Objective Data Vital Signs Vital Signs: Vital Signs - 24 hr 03/15/22 20:00 03/15/22 20:31 03/15/22 20:41 Temperature Pulse Rate 105 H 105 H Pulse Rate [Bilateral Radial Palpation] 88 Respiratory Rate 18 18 Blood Pressure Pulse Oximetry 98 03/15/22 21:52 03/15/22 23:52 03/16/22 04:00 Temperature 97.7 F Pulse Rate 117 H Pulse Rate [Bilateral Radial Palpation] 70 70 Respiratory Rate 18 Blood Pressure 133/99 H Pulse Oximetry 100 03/16/22 05:39 03/16/22 14:00 03/16/22 14:35 Temperature 98.2 F 96.8 F L Pulse Rate 95 100 Pulse Rate [Bilateral Radial Palpation] Respiratory Rate 18 16 Blood Pressure 129/85 123/87 Pulse Oximetry 96 98 99 03/16/22 14:46 03/16/22 14:52 Temperature Pulse Rate 99 106 H Pulse Rate [Bilateral Radial Palpation] Respiratory Rate 16 16 Blood Pressure Pulse Oximetry Intake/Output Intake/Output: Intake & Output 03/13/22 03/14/22 03/15/22 03/16/22 23:59 23:59 23:59 2
[2022-03-16 22:00] LABS: Legionella pneumophila Ag Ur Not Detected (Not Detected)
[2022-03-17] VITALS: PULSE 82
[2022-03-17] MEDS: SODIUM CHLORIDE 0.9% IV 1,000 ML 100 ML IV CONT ×2 (00:25→10:27)
[2022-03-17 05:43] VITALS: BP 137/89; PULSE 83; RESP 16; TEMP 36.4; O2SAT 97
[2022-03-17 06:22] LABS: Albumin Level 2.7 g/dL (3.5-5.1); Anion Gap 4 mmol/L (8-16); Blood Urea Nitrogen 8 mg/dL (9-20); Calcium 7.7 mg/dL (8.4-10.2); Carbon Dioxide 27 mmol/L (22-30); Chloride 109 mmol/L (98-107); Estimated CRCL calculation 25 ml/min; Estimated Glomerular Filt Rate 18; Glucose 94 mg/dL (65-110); Phosphorus 3.8 mg/dL (2.5-4.5); Potassium 3.7 mmol/L (3.4-5.0); Sodium 140 mmol/L (137-145)
[2022-03-17] MEDS: MORPHINE SULFATE (*CRX) 2 MG/ML INJ IV PUSH (06:24)
[2022-03-17] MEDS: chlordiazePOXIDE (*CRX) 25 MG CAPSULE PO ×3 (06:24→21:14)
[2022-03-17] MEDS: LORazepam INJ (*CRX) 2 MG/ML VIAL 0.5 MG IV PUSH ×3 (06:48→21:14)
[2022-03-17] MEDS: FAMOTIDINE 20 MG TABLET PO ×2 (08:12→21:16)
[2022-03-17] MEDS: NICOTINE (*PBKC) 14 MG PATCH 1 PATCH TRANSDERM (08:12)
[2022-03-17] MEDS: DOXYCYCLINE HYCLATE 100 MG TABLET PO ×2 (08:12→21:16)
[2022-03-17] MEDS: ENOXAPARIN 40 MG/0.4 ML SYRINGE SUB-Q (08:12)
[2022-03-17] MEDS: THIAMINE HCL 100 MG TABLET PO (08:12)
[2022-03-17] MEDS: FOLIC ACID 1 MG TABLET PO (08:12)
--- NOTE | 2022-03-17 09:17 | PM.IMPN ---
Progress Note: A&P Assessment and Plan (1) KRISTINE (acute kidney injury): Code(s): N17.9 - Acute kidney failure, unspecified Status: Acute Assessment and Plan: Acute kidney injury likely secondary to ATN from contrast induced nephropathy. Anticipate this to get slightly worse before it gets better, patient asymptomatic with good urine output. Appreciate Nephrology consultation, continue IV fluids. Creatinine up to 3.8 today from 3.5 yesterday. (2) Necrotizing pneumonia: Code(s): J85.0 - Gangrene and necrosis of lung Status: Acute Assessment and Plan: Resolving, continue current antibiotics of azithromycin and doxycycline, vanc and Zosyn were started on March 12, he is now on day 5 of antibiotics (3) PTSD (post-traumatic stress disorder): Code(s): F43.10 - Post-traumatic stress disorder, unspecified Status: Inactive Assessment and Plan: Discussed use of CBT at discharge to manage the symptoms, appears to be worsening without his coping skills at home, will trial hydroxyzine and Ativan sparingly as needed while inpatient only. (4) DVT prophylaxis: Code(s): Z29.9 - Encounter for prophylactic measures, unspecified Status: Acute Assessment and Plan: Renally dosed Lovenox (5) Alcohol abuse: Code(s): F10.10 - Alcohol abuse, uncomplicated Status: Acute Assessment and Plan: Monitor, no signs of DTs, continue current management recommend continued cessation upon discharge (6) Tobacco abuse: Code(s): Z72.0 - Tobacco use Status: Acute Assessment and Plan: Smoking cessation discussed for greater than 3 minutes with patient (7) Back pain of lumbar region with sciatica: Code(s): M54.40 - Lumbago with sciatica, unspecified side Status: Acute Assessment and Plan: Suspect this is secondary to sedentary activity, will discontinue morphine and Troy and give heating pad, PT consult and 1 g of Tylenol every 8 hours as needed. Low-dose fentanyl would be available as needed. Will also give Lidoderm patch. Subjective Date/time seen: 03/17/22 09:17 Interval history: 41-year-old male with past medical history significant for PTSD, alcohol and tobacco abuse presenting with chest pain found to have necrotizing pneumonia and sepsis, resolving. Patient eager to go home and feeling restless, walking the halls. Denies any symptoms other than back pain. Requesting higher doses of morphine oxycodone for his stiffness and back pain. Denies any overnight events or fevers or chills. No nausea vomiting or diarrhea. Review of Systems Review of Systems: All systems reviewed & are unremarkable except as noted in HPI and below Constitutional: Constitutional: Reports as per HPI Exam Const: General: no acute distress HENMT: Mouth: Yes moist mucous membranes Eyes: General: appearance normal, both eyes and all related structures Neck: Neck: supple and no JVD Carotids: no bruits Resp: Auscultation: crackles and diminished lung sounds Cardio: Rate: regular rate Rhythm: regular rhythm Heart sounds: no murmurs GI: Inspection: non-distended Skin: General skin exam: normal color and no rashes or lesions noted Neuro: Cognition (Neuro): normal cognition Speech: normal speech Motor exam (neuro): Normal motor muscle tone present throughout Extrem: General: normal to inspection Psych: Affect: Sad affect present and Anxious affect present Objective Data Vital Signs Vital Signs: Vital Signs - 24 hr 03/16/22 14:00 03/16/22 14:35 03/16/22 14:46 Temperature 96.8 F L Pulse Rate 100 99 Pulse Rate [Bilateral Radial Palpation] Respiratory Rate 16 16 Blood Pressure 123/87 Pulse Oximetry 98 99 03/16/22 14:52 03/16/22 20:00 03/16/22 21:52 Temperature 98.2 F Pulse Rate 106 H 88 Pulse Rate [Bilateral Radial Palpation] 88 Respiratory Rate 16 16 Blood Pressure 132/95 H Pulse Oximetry 99 05/01
--- NOTE | 2022-03-17 09:27 | PM.PNNEP ---
Progress Note: A&P Additional Plan 1. Eyal has acute kidney injury. His creatinine was normal on admission. UA shows 1+ blood. Renal ultrasound is normal urine electrolytes are non pre renal urine protein is 760. His creatinine marycarmen about 48hours after he got his contrast. Pneumonia could also cause renal failure. most likely he has contrast and pneumonia induced ATN His creatinine marycarmen a little bit more. The rate of rise of creatinine is decreasing every day and so I believe he is going to reach a plateau and start to get better. There is some concern for as a cardiorenal syndrome however such as lupus, Gr's, or anti GBM. The sed rate is not back yet. However this could be high from infection or inflammation. Serology is pending. We had a long discussion. I am hopeful that his kidney function will turn around on its own. However we may entertain renal biopsy soon if the creatinine continues to rise. I do not think I am suspicious enough at this point to give stress dose steroids today. Do not want to immunosuppressant min the time of this severe pneumonia. He did grow strep from his sputum culture making infection more likely than inflammation. 2. The patient has disc disease. He is getting meds for this. 3. The patient drinks heavily. He is going to stop. 4. Patient smokes 5 cigarettes per day. He is going to try stopping this as well. Subjective Date/time seen: 03/17/22 09:27 Interval history: Patient feels better today. Moving air better. Cough is better. No fevers. Making lots of urine. He is thirsty and so continues to drink. Review of Systems Cardiovascular: Cardiovascular: Reports no additional cardiovascular complaints Respiratory: Respiratory: Reports no additional respiratory complaints Gastrointestinal: Gastrointestinal: Reports no additional gastrointestinal complaints Genitourinary: Genitourinary: Reports no additional male genitourinary complaints Exam Narrative: WDWN in NAD skin no rash or subcu nodules head ncat lungs mildly coarse on the right cor reg no rub abd BS+ nontender and soft ext no edema. Objective Data Vital Signs Vital Signs: Vital Signs - 24 hr 03/16/22 14:00 03/16/22 14:35 03/16/22 14:46 Temperature 36.0 C L Pulse Rate 100 99 Pulse Rate [Bilateral Radial Palpation] Respiratory Rate 16 16 Blood Pressure 123/87 Pulse Oximetry 98 99 03/16/22 14:52 03/16/22 20:00 03/16/22 21:52 Temperature 36.8 C Pulse Rate 106 H 88 Pulse Rate [Bilateral Radial Palpation] 88 Respiratory Rate 16 16 Blood Pressure 132/95 H Pulse Oximetry 99 03/17/22 00:00 03/17/22 05:43 Temperature 36.4 C Pulse Rate 83 Pulse Rate [Bilateral Radial Palpation] 82 Respiratory Rate 16 Blood Pressure 137/89 Pulse Oximetry 97 Intake/Output Intake/Output: Intake & Output 03/14/22 03/15/22 03/16/22 03/17/22 23:59 23:59 23:59 23:59 Intake Total 2670 2750 6970 750 Output Total 1999 Balance 2670 2750 8430 750 Meds/Results Medications: Active Medications Generic Name Dose Route Start Last Admin Trade Name Freq PRN Reason Stop Dose Admin Acetaminophen 650 mg 03/13/22 12:04 Acetaminophen 325 Mg Tablet PO Q6H PRN Mild Pain (1-3) or Fever Hydrocodone Bitart/Acetaminophen 1 tab 03/15/22 17:19 03/16/22 13:12 Hydrocodone/Acetaminophen (*Crx) 5-325 Mg Tablet PO 1 tab Q6H PRN Administration Pain Rated 4-6 Chlordiazepoxide HCl 25 mg 03/15/22 14:00 03/17/22 06:24 Chlordiazepoxide (*Crx) 25 Mg Capsule PO 25 mg Q8HR TYESHA Administration Dextrose 12.5 gm 03/13/22 12:00 Dextrose 50% 25 Gm/50 Ml Syringe IV PUSH PRN PRN Hypoglycemia Protocol Doxycycline Hyclate 100 mg 03/15/22 09:00 03/17/22 08:12 Doxycycline Hyclate 100 Mg Tablet PO 100 mg Q12HR TYESHA Administration Enoxaparin Sodium 40 mg 03/14/22 09:00 03/17/22 08:12 Enoxaparin
[2022-03-17 14:00] VITALS: BP 144/95; PULSE 92; RESP 14; TEMP 36.4; O2SAT 99
[2022-03-17] MEDS: fentaNYL CITRATE INJ (*CRX) 100 MCG/2 ML VIAL 6.25 MCG IV PUSH (16:11)
[2022-03-17] MEDS: ACETAMINOPHEN 500 MG TABLET 1000 MG PO (21:13)
[2022-03-17 21:39] VITALS: BP 150/98; PULSE 88; RESP 16; TEMP 36.8; O2SAT 100
[2022-03-18] MEDS: fentaNYL CITRATE INJ (*CRX) 100 MCG/2 ML VIAL 6.25 MCG IV PUSH ×2 (00:06→08:28)
[2022-03-18] MEDS: SODIUM CHLORIDE 0.9% IV 1,000 ML 100 ML IV CONT ×2 (00:07→08:26)
[2022-03-18] MEDS: LORazepam INJ (*CRX) 2 MG/ML VIAL 0.5 MG IV PUSH ×3 (05:27→23:19)
[2022-03-18] MEDS: chlordiazePOXIDE (*CRX) 25 MG CAPSULE PO ×3 (05:27→21:50)
[2022-03-18 05:56] VITALS: BP 146/97; PULSE 71; RESP 16; TEMP 36.1; O2SAT 98
[2022-03-18 06:35] LABS: Albumin Level 2.6 g/dL (3.5-5.1); Anion Gap 4 mmol/L (8-16); Blood Urea Nitrogen 8 mg/dL (9-20); Calcium 7.5 mg/dL (8.4-10.2); Carbon Dioxide 25 mmol/L (22-30); Chloride 110 mmol/L (98-107); Estimated CRCL calculation 26 ml/min; Estimated Glomerular Filt Rate 18; Glucose 104 mg/dL (65-110); Phosphorus 4.3 mg/dL (2.5-4.5); Potassium 3.3 mmol/L (3.4-5.0); Sodium 139 mmol/L (137-145)
[2022-03-18 08:16] LABS: Erythrocyte Sedimentation Rate 40 mm/hr (0-20)
[2022-03-18] MEDS: NICOTINE (*PBKC) 14 MG PATCH 1 PATCH TRANSDERM (08:25)
[2022-03-18] MEDS: LIDOCAINE 5% PATCH 1 PATCH TRANSDERM (08:25)
[2022-03-18] MEDS: FOLIC ACID 1 MG TABLET PO (08:26)
[2022-03-18] MEDS: DOXYCYCLINE HYCLATE 100 MG TABLET PO ×2 (08:26→20:19)
[2022-03-18] MEDS: THIAMINE HCL 100 MG TABLET PO (08:26)
[2022-03-18] MEDS: FAMOTIDINE 20 MG TABLET PO ×2 (08:26→20:19)
[2022-03-18] MEDS: ENOXAPARIN 40 MG/0.4 ML SYRINGE SUB-Q (08:26)
--- NOTE | 2022-03-18 08:35 | PM.PNNEP ---
Progress Note: A&P Additional Plan 1. Eyal has acute kidney injury. His creatinine was normal on admission. UA shows 1+ blood. Renal ultrasound is normal urine electrolytes are non pre renal urine protein is 760. ESR still not back yet. I will reorder. Serology is all pending His creatinine marycarmen about 48 hours after he got his contrast. Pneumonia could also cause renal failure. most likely he has contrast and pneumonia induced ATN His creatinine is the same today as it was yesterday. Looks like he is achieving a plateau and should improve shortly. This makes me think that inflammatory disease is much less likely so we will not do a biopsy. I will get a renal scan to be sure there was good blood flow to both kidneys. 2. The patient has disc disease. He is getting meds for this. 3. The patient has been drinking heavily. He is going to stop. 4. Patient smokes 5 cigarettes per day. He is going to try stopping this as well. Subjective Date/time seen: 03/18/22 08:35 Interval history: Patient feels better today. No bloody or foamy urine. No swelling. Making lots of urine. He is thirsty and so continues to drink. Exam Narrative: WDWN in NAD skin no rash or subcu nodules head ncat lungs mildly coarse on the right cor reg no rub abd BS+ nontender and soft ext no edema or cyanosis. Objective Data Vital Signs Vital Signs: Vital Signs - 24 hr 03/17/22 14:00 03/17/22 21:39 03/18/22 05:56 Temperature 36.4 C 36.8 C 36.1 C L Pulse Rate 92 88 71 Respiratory Rate 14 16 16 Blood Pressure 144/95 H 150/98 H 146/97 H Pulse Oximetry 99 100 98 Intake/Output Intake/Output: Intake & Output 03/15/22 03/16/22 03/17/22 03/18/22 23:59 23:59 23:59 23:59 Intake Total 2750 6970 6020 1750 Output Total 1999 1999 Balance 2750 4970 4020 1750 Meds/Results Medications: Active Medications Generic Name Dose Route Start Last Admin Trade Name Freq PRN Reason Stop Dose Admin Acetaminophen 1,000 mg 03/17/22 14:41 03/17/22 21:13 Acetaminophen 500 Mg Tablet PO 1,000 mg Q6H PRN Administration Mild Pain (1-3) or Fever Chlordiazepoxide HCl 25 mg 03/15/22 14:00 03/18/22 05:27 Chlordiazepoxide (*Crx) 25 Mg Capsule PO 25 mg Q8HR TYESHA Administration Dextrose 12.5 gm 03/13/22 12:00 Dextrose 50% 25 Gm/50 Ml Syringe IV PUSH PRN PRN Hypoglycemia Protocol Doxycycline Hyclate 100 mg 03/15/22 09:00 03/18/22 08:26 Doxycycline Hyclate 100 Mg Tablet PO 100 mg Q12HR TYESHA Administration Enoxaparin Sodium 40 mg 03/18/22 09:00 03/18/22 08:26 Enoxaparin 40 Mg/0.4 Ml Syringe SUB-Q 40 mg DAILY TYESHA Administration Famotidine 20 mg 03/13/22 21:00 03/18/22 08:26 Famotidine 20 Mg Tablet PO 20 mg Q12HR TYESHA Administration Fentanyl Citrate 6.25 mcg 03/17/22 14:39 03/18/22 08:28 Fentanyl Citrate Inj (*Crx) 100 Mcg/2 Ml Vial IV PUSH 6.25 mcg Q8H PRN Administration Pain Rated 7-10 Folic Acid 1 mg 03/13/22 12:05 03/18/22 08:26 Folic Acid 1 Mg Tablet PO 1 mg DAILY TYESHA Administration Glucagon 1 mg 03/13/22 12:00 Glucagon For Inj 1 Mg Vial IM PRN PRN Hypoglycemia Protocol Glucose 15 gm 03/13/22 12:00 Glucose Oral Gel 15 Gm Of Glucse In 37.5 Gm Tube PO PRN PRN Hypoglycemia Protocol Hydroxyzine HCl 25 mg 03/16/22 16:13 03/16/22 16:56 Hydroxyzine Hcl 25 Mg Tablet PO 25 mg Q6H PRN Administration Itching Dextrose 1,000 mls @ 100 mls/hr 03/13/22 12:00 Dextrose 5% 1,000 Ml IVPB PRN PRN Hypoglycemia Protocol Sodium Chloride 1,000 mls @ 100 mls/hr 03/15/22 07:30 03/18/22 08:26 Normal Saline Iv IV CONT 100 mls/hr .Q10H TYESHA Administration Ceftriaxone Sodium/Dextrose 1 gm in 50 mls @ 100 mls/hr 03/15/22 11:00 03/17/22 11:09 Rocephin 1 Gm/D5w 50 Ml IVPB Infused Q24H TYESHA Infusion Levalbuterol HCl 1.25
[2022-03-18 12:00] VITALS: PULSE 84
--- NOTE | 2022-03-18 12:17 | PM.IMPN ---
Progress Note: A&P Assessment and Plan (1) KRISTINE (acute kidney injury): Code(s): N17.9 - Acute kidney failure, unspecified Status: Acute Assessment and Plan: Patient has developed KRISTINE probably from the contrast induced vs ATN from the infection vs from abx (AIN?). Nonoliguric. Renal US normal. UA normal. Ueos negative. HIV negative. Cr up to 3.8 but slightly better today. Nephrology consulted and appreciate their input. Will let IV fluids run out and stop. (2) Necrotizing pneumonia: Code(s): J85.0 - Gangrene and necrosis of lung Status: Acute Assessment and Plan: Patient presents with pleuritic chest pain and found to have elevated white count and CT showing necrotizing pneumonia right upper lobe. No obvious risk factors pointing toward a specific etiology. He does smoke tobacco and marijuana regularly. BCx NGTD. Sputum cx growing Group A Strept. Echo normal. Was on vancomycin and Zosyn. Changed to Rocephin and Doxycycline due to the KRISTINE. (3) Sepsis: Qualifiers: Sepsis acute organ dysfunction status: unspecified Sepsis type: sepsis due to unspecified organism Qualified Code(s): A41.9 - Sepsis, unspecified organism Code(s): A41.9 - Sepsis, unspecified organism Status: Acute Assessment and Plan: Present on admission with leukocytosis, low-grade fever, tachycardia. Related to pneumonia. Symptoms have resolved. Treatment as above. (4) Elevated LFTs: Code(s): R79.89 - Other specified abnormal findings of blood chemistry Status: Acute Assessment and Plan: AST 348 and ALT 138. AST greater than ALT so consider alcohol induced. No history of liver problems. He does drink alcohol excessively. RUQ showing hepatic steatosis. He was educated about the benefits of abstaining from alcohol use. Continue to monitor (5) Alcohol abuse: Code(s): F10.10 - Alcohol abuse, uncomplicated Status: Acute Assessment and Plan: Patient was educated about the benefits of abstain from alcohol. Continue thiamine and folate. CIWA scores noted. Librium scheduled. Also asking for Ativan frequently. Will decrease the frequency. Also back down on Librium. (6) Hyperglycemia: Code(s): R73.9 - Hyperglycemia, unspecified Status: Acute Assessment and Plan: Glucose was mildly elevated but related to stress response. A1c 4.6. (7) Elevated blood pressure reading: Code(s): R03.0 - Elevated blood-pressure reading, without diagnosis of hypertension Status: Acute Assessment and Plan: Patient with elevated blood pressure on admission to as high as 170/106. Elevated blood pressure probably stress response but occasionally elevated related to IV fluids and pain/anxiety. Will continue to monitor. (8) Elevated lipase: Code(s): R74.8 - Abnormal levels of other serum enzymes Status: Acute Assessment and Plan: Lipase was mildly elevated. No evidence of pancreatitis on CT scan. Repeat lipase normal. Resolved (9) Tachycardia: Code(s): R00.0 - Tachycardia, unspecified Status: Acute Assessment and Plan: Patient with significant tachycardia on admission related to pain. With IV fluids and control of his pain, heart rate improved. Follow (10) PTSD (post-traumatic stress disorder): Code(s): F43.10 - Post-traumatic stress disorder, unspecified Status: Inactive Assessment and Plan: Other providers have discussed use of CBT at discharge to manage the symptoms and appears to be worsening without his coping skills at home. Continue hydroxyzine and Ativan sparingly as needed while inpatient only. Back off on Ativan frequency. (11) Tobacco abuse: Code(s): Z72.0 - Tobacco use Status: Acute Assessment and Plan: Patient was educated about the benefits of smoking cessation. (12) Back pain of lumbar region with sciatica: Code(s)
[2022-03-18 14:00] VITALS: BP 136/102; PULSE 94; RESP 20; TEMP 36.2; O2SAT 98
[2022-03-18] MEDS: HYDROcodone/acetaminophen (*CRX) 5-325 MG TABLET 1 TAB PO (18:25)
[2022-03-18 20:35] VITALS: O2SAT 97
[2022-03-18 21:59] VITALS: BP 154/103; PULSE 71; RESP 20; TEMP 36.9; O2SAT 99
[2022-03-19] MEDS: HYDROcodone/acetaminophen (*CRX) 5-325 MG TABLET 1 TAB PO ×4 (00:22→21:15)
[2022-03-19] MEDS: chlordiazePOXIDE (*CRX) 25 MG CAPSULE PO ×3 (05:22→21:15)
[2022-03-19 05:48] VITALS: BP 156/105; PULSE 66; RESP 18; TEMP 36.9; O2SAT 98
[2022-03-19 06:19] LABS: Alanine Aminotransferase 72 U/L (4-50); Albumin Level 2.9 g/dL (3.5-5.1); Alkaline Phosphatase 73 U/L (38-126); Anion Gap 6 mmol/L (8-16); Aspartate Amino Transferase 62 U/L (17-59); Bilirubin,Total 0.3 mg/dL (0.2-1.3); Blood Urea Nitrogen 8 mg/dL (9-20); Carbon Dioxide 25 mmol/L (22-30); Chloride 112 mmol/L (98-107); Estimated CRCL calculation 26 ml/min; Estimated Glomerular Filt Rate 18; Glucose 87 mg/dL (65-110); Magnesium 1.6 mg/dL (1.6-2.3); Phosphorus 4.4 mg/dL (2.5-4.5); Potassium 3.5 mmol/L (3.4-5.0); Sodium 143 mmol/L (137-145)
[2022-03-19] MEDS: LORazepam INJ (*CRX) 2 MG/ML VIAL 0.5 MG IV PUSH (07:34)
[2022-03-19] MEDS: NICOTINE (*PBKC) 14 MG PATCH 1 PATCH TRANSDERM (08:18)
--- NOTE | 2022-03-19 08:18 | PM.PNNEP ---
Progress Note: A&P Additional Plan 1. Eyal has acute kidney injury. His creatinine was normal on admission. UA shows 1+ blood. Renal ultrasound is normal urine electrolytes are non pre renal urine protein is 760. ESR still not back yet. I will reorder. Serology is all pending, the sed rate is 40. Renal scan shows uptake with delayed excretion. This is consistent with ATN. Most likely this is ATN from pneumonia plus contrast. most likely he has contrast and pneumonia induced ATN His creatinine seems to have plateaued. Hopefully will improve soon. He really wants to go home and follow this as an outpatient. I will discuss with Dr. Gonzalez. 2. The patient has disc disease. He is getting meds for this. 3. The patient has been drinking heavily. He is going to stop. He feels confident that he can stay off the alcohol. 4. Patient smokes 5 cigarettes per day. He is going to try stopping this as well. Subjective Date/time seen: 03/19/22 08:18 Interval history: Patient feels better today. Eating and drinking well. Eager for discharge. Exam Narrative: WDWN in NAD skin no rash head ncat lungs mildly coarse on the right cor reg no rub or gallop abd BS+ nontender and soft ext no edema or cyanosis. Objective Data Vital Signs Vital Signs: Vital Signs - 24 hr 03/18/22 12:00 03/18/22 14:00 03/18/22 20:35 Temperature 36.2 C L Pulse Rate 94 Pulse Rate [Bilateral Radial Palpation] 84 Respiratory Rate 20 Blood Pressure 136/102 H Pulse Oximetry 98 97 03/18/22 21:59 03/19/22 05:48 Temperature 36.9 C 36.9 C Pulse Rate 71 66 Pulse Rate [Bilateral Radial Palpation] Respiratory Rate 20 18 Blood Pressure 154/103 H 156/105 H Pulse Oximetry 99 98 Intake/Output Intake/Output: Intake & Output 03/16/22 03/17/22 03/18/22 03/19/22 23:59 23:59 23:59 23:59 Intake Total 6970 6020 3554 250 Output Total 1999 1999 Balance 4970 4020 3554 250 Meds/Results Medications: Active Medications Generic Name Dose Route Start Last Admin Trade Name Freq PRN Reason Stop Dose Admin Acetaminophen 650 mg 03/18/22 13:11 Acetaminophen 325 Mg Tablet PO Q6H PRN Mild Pain (1-5) Or Fever Hydrocodone Bitart/Acetaminophen 1 tab 03/18/22 13:11 03/19/22 06:21 Hydrocodone/Acetaminophen (*Crx) 5-325 Mg Tablet PO 1 tab Q6H PRN Administration Pain Rated 6-10 Chlordiazepoxide HCl 25 mg 03/15/22 14:00 03/19/22 05:22 Chlordiazepoxide (*Crx) 25 Mg Capsule PO 25 mg Q8HR TYESHA Administration Dextrose 12.5 gm 03/13/22 12:00 Dextrose 50% 25 Gm/50 Ml Syringe IV PUSH PRN PRN Hypoglycemia Protocol Doxycycline Hyclate 100 mg 03/15/22 09:00 03/18/22 20:19 Doxycycline Hyclate 100 Mg Tablet PO 100 mg Q12HR TYESHA Administration Enoxaparin Sodium 30 mg 03/19/22 09:00 Enoxaparin 30 Mg/0.3 Ml Syringe SUB-Q DAILY TYESHA Famotidine 20 mg 03/13/22 21:00 03/18/22 20:19 Famotidine 20 Mg Tablet PO 20 mg Q12HR TYESHA Administration Folic Acid 1 mg 03/13/22 12:05 03/18/22 08:26 Folic Acid 1 Mg Tablet PO 1 mg DAILY TYESHA Administration Glucagon 1 mg 03/13/22 12:00 Glucagon For Inj 1 Mg Vial IM PRN PRN Hypoglycemia Protocol Glucose 15 gm 03/13/22 12:00 Glucose Oral Gel 15 Gm Of Glucse In 37.5 Gm Tube PO PRN PRN Hypoglycemia Protocol Hydroxyzine HCl 25 mg 03/16/22 16:13 03/16/22 16:56 Hydroxyzine Hcl 25 Mg Tablet PO 25 mg Q6H PRN Administration Itching Dextrose 1,000 mls @ 100 mls/hr 03/13/22 12:00 Dextrose 5% 1,000 Ml IVPB PRN PRN Hypoglycemia Protocol Ceftriaxone Sodium/Dextrose 1 gm in 50 mls @ 100 mls/hr 03/15/22 11:00 03/18/22 10:48 Rocephin 1 Gm/D5w 50 Ml IVPB 100 mls/hr Q24H TYESHA Administration Levalbuterol HCl 1.25 mg 03/15/22 08:48 03/16/22 14:44 Levalbuterol Neb 1.25 Mg/0.5 Ml INHALATION 1.25 mg Q6HRT PRN
[2022-03-19] MEDS: ENOXAPARIN 30 MG/0.3 ML SYRINGE SUB-Q (08:19)
[2022-03-19] MEDS: FAMOTIDINE 20 MG TABLET PO ×2 (08:19→21:17)
[2022-03-19] MEDS: DOXYCYCLINE HYCLATE 100 MG TABLET PO ×2 (08:19→21:17)
[2022-03-19] MEDS: FOLIC ACID 1 MG TABLET PO (08:19)
[2022-03-19] MEDS: LIDOCAINE 5% PATCH 1 PATCH TRANSDERM (08:19)
[2022-03-19] MEDS: THIAMINE HCL 100 MG TABLET PO (08:19)
[2022-03-19 13:12] LABS: Lambda Light Chain 97.2 mg/L (5.7-26.3)
[2022-03-19 14:00] VITALS: BP 144/90; PULSE 83; RESP 16; TEMP 37.2; O2SAT 100
[2022-03-19 14:35] LABS: Complement Total CH50 >60 U/mL (31-60)
[2022-03-19 14:35] LABS: Complement Total CH50 >60 U/mL (31-60)
--- NOTE | 2022-03-19 15:25 | PM.IMPN ---
Progress Note: A&P Assessment and Plan (1) KRISTINE (acute kidney injury): Code(s): N17.9 - Acute kidney failure, unspecified Status: Acute Assessment and Plan: Patient has developed KRISTINE probably from the contrast induced vs ATN from the infection vs from abx (AIN?). Nonoliguric. Renal US normal. UA normal. Ueos negative. HIV negative. NM showing symmetric kidney function with delayed contrast uptake and clearance c/w decreased renal function. Cr was up to 3.8 but now stable for the past 3 days. Nephrology consulted and appreciate their input. IV fluids stopped. (2) Necrotizing pneumonia: Code(s): J85.0 - Gangrene and necrosis of lung Status: Acute Assessment and Plan: Patient presents with pleuritic chest pain and found to have elevated white count and CT showing necrotizing pneumonia right upper lobe. No obvious risk factors pointing toward a specific etiology. He does smoke tobacco and marijuana regularly. BCx NGTD. Sputum cx growing Group A Strept. Echo normal. Was on vancomycin and Zosyn. Changed to Rocephin and Doxycycline due to the KRISTINE. Will continue to complete a 10 day course. (3) Sepsis: Qualifiers: Sepsis acute organ dysfunction status: unspecified Sepsis type: sepsis due to unspecified organism Qualified Code(s): A41.9 - Sepsis, unspecified organism Code(s): A41.9 - Sepsis, unspecified organism Status: Acute Assessment and Plan: Present on admission with leukocytosis, low-grade fever, tachycardia. Related to pneumonia. Symptoms have resolved. Treatment as above. (4) Elevated LFTs: Code(s): R79.89 - Other specified abnormal findings of blood chemistry Status: Acute Assessment and Plan: AST 348 and ALT 138. AST greater than ALT so consider alcohol induced. No history of liver problems. He does drink alcohol excessively. RUQ showing hepatic steatosis. He was educated about the benefits of abstaining from alcohol use. Levels trending down. Continue to monitor (5) Alcohol abuse: Code(s): F10.10 - Alcohol abuse, uncomplicated Status: Acute Assessment and Plan: Patient was educated about the benefits of abstain from alcohol. Continue thiamine and folate. CIWA scores noted. Librium scheduled. Also asking for Ativan frequently. Will continue to decrease meds. (6) Hyperglycemia: Code(s): R73.9 - Hyperglycemia, unspecified Status: Acute Assessment and Plan: Glucose was mildly elevated but related to stress response. A1c 4.6. (7) Elevated blood pressure reading: Code(s): R03.0 - Elevated blood-pressure reading, without diagnosis of hypertension Status: Acute Assessment and Plan: Patient with elevated blood pressure on admission to as high as 170/106. Elevated blood pressure probably stress response but occasionally elevated related to IV fluids and pain/anxiety. Will continue to monitor. (8) Elevated lipase: Code(s): R74.8 - Abnormal levels of other serum enzymes Status: Acute Assessment and Plan: Lipase was mildly elevated. No evidence of pancreatitis on CT scan. Repeat lipase normal. Resolved (9) Tachycardia: Code(s): R00.0 - Tachycardia, unspecified Status: Acute Assessment and Plan: Patient with significant tachycardia on admission related to pain. With IV fluids and control of his pain, heart rate improved. Follow (10) PTSD (post-traumatic stress disorder): Code(s): F43.10 - Post-traumatic stress disorder, unspecified Status: Inactive Assessment and Plan: Other providers have discussed use of CBT at discharge to manage the symptoms and appears to be worsening without his coping skills at home. Continue hydroxyzine and Ativan sparingly as needed while inpatient only. Back off on Ativan frequency. (11) Tobacco abuse: Code(s): Z72.0 - Tobacco use Status: Acute Assessm
[2022-03-19 20:00] VITALS: O2SAT 100
[2022-03-19 22:00] VITALS: BP 160/100; PULSE 76; RESP 18; TEMP 36.9; O2SAT 100
[2022-03-19] MEDS: hydrALAZINE HCL 20 MG/ML VIAL 10 MG IV PUSH (22:10)
--- NOTE | 2022-03-20 03:39 | PC.NURSE ---
03/20/22 0339 pt requested not to be woke up to recheck his blood pressure if he was asleep.
[2022-03-20 05:47] VITALS: BP 160/102; PULSE 71; RESP 18; TEMP 37.2; O2SAT 99
[2022-03-20] MEDS: HYDROcodone/acetaminophen (*CRX) 5-325 MG TABLET 1 TAB PO (06:07)
[2022-03-20] MEDS: hydrALAZINE HCL 20 MG/ML VIAL 10 MG IV PUSH (06:07)
[2022-03-20 06:49] LABS: Albumin Level 2.6 g/dL (3.5-5.1); Anion Gap 6 mmol/L (8-16); Blood Urea Nitrogen 9 mg/dL (9-20); Calcium 7.6 mg/dL (8.4-10.2); Carbon Dioxide 21 mmol/L (22-30); Chloride 113 mmol/L (98-107); Estimated CRCL calculation 29 ml/min; Estimated Glomerular Filt Rate 21; Glucose 101 mg/dL (65-110); Phosphorus 4.5 mg/dL (2.5-4.5); Potassium 3.4 mmol/L (3.4-5.0); Sodium 140 mmol/L (137-145)
[2022-03-20 08:10] VITALS: BP 139/91
--- NOTE | 2022-03-20 08:46 | PM.PNNEP ---
Progress Note: A&P Additional Plan 1. Eyal has acute kidney injury. His creatinine was normal on admission. UA shows 1+ blood. Renal ultrasound is normal urine electrolytes are non pre renal urine protein is 760. ESR still not back yet. I will reorder. Serology is all pending, the sed rate is 40. Renal scan shows uptake with delayed excretion. This is consistent with ATN. Most likely this is ATN from pneumonia plus contrast. most likely he has contrast and pneumonia induced ATN His creatinine is down to 3.3. I think he is okay for discharge. Discussed with Dr. Gonzalez yesterday. 2. The patient has disc disease. He is getting meds for this. 3. The patient has been drinking heavily. He is going to stop. He feels confident that he can stay off the alcohol. 4. Patient smokes 5 cigarettes per day. He is going to try stopping this as well. Subjective Date/time seen: 03/20/22 08:46 Interval history: Patient feels Fine.\ Eating and drinking okay. For discharge. Exam Narrative: WDWN in NAD skin no rash head ncat lungs mildly coarse on the right cor reg no rub or gallop abd BS+ nontender and soft ext no edema or cyanosis. Objective Data Vital Signs Vital Signs: Vital Signs - 24 hr 03/19/22 14:00 03/19/22 20:00 03/19/22 22:00 Temperature 37.2 C 36.9 C Pulse Rate 83 76 Respiratory Rate 16 18 Blood Pressure 144/90 H 160/100 H Pulse Oximetry 100 100 100 03/20/22 05:47 03/20/22 08:10 Temperature 37.2 C Pulse Rate 71 Respiratory Rate 18 Blood Pressure 160/102 H 139/91 H Pulse Oximetry 99 Intake/Output Intake/Output: Intake & Output 03/17/22 03/18/22 03/19/22 03/20/22 23:59 23:59 23:59 23:59 Intake Total 6020 3604 1660 200 Output Total 2000 850 Balance 4020 3604 810 200 Meds/Results Medications: Active Medications Generic Name Dose Route Start Last Admin Trade Name Freq PRN Reason Stop Dose Admin Acetaminophen 650 mg 03/18/22 13:11 Acetaminophen 325 Mg Tablet PO Q6H PRN Mild Pain (1-5) Or Fever Hydrocodone Bitart/Acetaminophen 1 tab 03/18/22 13:11 03/20/22 06:07 Hydrocodone/Acetaminophen (*Crx) 5-325 Mg Tablet PO 1 tab Q6H PRN Administration Pain Rated 6-10 Chlordiazepoxide HCl 25 mg 03/19/22 21:00 03/19/22 21:15 Chlordiazepoxide (*Crx) 25 Mg Capsule PO 25 mg Q12HR TYESHA Administration Dextrose 12.5 gm 03/13/22 12:00 Dextrose 50% 25 Gm/50 Ml Syringe IV PUSH PRN PRN Hypoglycemia Protocol Doxycycline Hyclate 100 mg 03/15/22 09:00 03/19/22 21:17 Doxycycline Hyclate 100 Mg Tablet PO 100 mg Q12HR TYESHA Administration Enoxaparin Sodium 30 mg 03/19/22 09:00 03/19/22 08:19 Enoxaparin 30 Mg/0.3 Ml Syringe SUB-Q 30 mg DAILY TYESHA Administration Famotidine 20 mg 03/13/22 21:00 03/19/22 21:17 Famotidine 20 Mg Tablet PO 20 mg Q12HR TYESHA Administration Folic Acid 1 mg 03/13/22 12:05 03/19/22 08:19 Folic Acid 1 Mg Tablet PO 1 mg DAILY TYESHA Administration Glucagon 1 mg 03/13/22 12:00 Glucagon For Inj 1 Mg Vial IM PRN PRN Hypoglycemia Protocol Glucose 15 gm 03/13/22 12:00 Glucose Oral Gel 15 Gm Of Glucse In 37.5 Gm Tube PO PRN PRN Hypoglycemia Protocol Hydralazine HCl 10 mg 03/19/22 21:52 03/20/22 06:07 Hydralazine Hcl 20 Mg/Ml Vial IV PUSH 10 mg Q8H PRN Administration Blood Pressure - High Hydroxyzine HCl 25 mg 03/16/22 16:13 03/16/22 16:56 Hydroxyzine Hcl 25 Mg Tablet PO 25 mg Q6H PRN Administration Itching Dextrose 1,000 mls @ 100 mls/hr 03/13/22 12:00 Dextrose 5% 1,000 Ml IVPB PRN PRN Hypoglycemia Protocol Ceftriaxone Sodium/Dextrose 1 gm in 50 mls @ 100 mls/hr 03/15/22 11:00 03/19/22 12:05 Rocephin 1 Gm/D5w 50 Ml IVPB Infused Q24H TYESHA Infusion Levalbuterol HCl 1.25 mg 03/15/22 08:48 03/16/22 14:44 Levalbuterol Neb 1.25 Mg/0.5 M
[2022-03-20] MEDS: FAMOTIDINE 20 MG TABLET PO (09:18)
[2022-03-20] MEDS: FOLIC ACID 1 MG TABLET PO (09:18)
[2022-03-20] MEDS: DOXYCYCLINE HYCLATE 100 MG TABLET PO (09:18)
[2022-03-20] MEDS: THIAMINE HCL 100 MG TABLET PO (09:18)
[2022-03-20] MEDS: chlordiazePOXIDE (*CRX) 25 MG CAPSULE PO (09:22)
[2022-03-20] MEDS: LIDOCAINE 5% PATCH 1 PATCH TRANSDERM (09:24)
[2022-03-20] MEDS: ENOXAPARIN 30 MG/0.3 ML SYRINGE SUB-Q (09:26)
[2022-03-20] MEDS: NICOTINE (*PBKC) 14 MG PATCH 1 PATCH TRANSDERM (09:26)
--- NOTE | 2022-03-20 09:49 | PM.DS ---
DS: Admitting Diagnosis Discharge Date 03/20/22 Admitting Diagnosis Chest pain DS: Discharge Diagnosis Discharge Diagnosis (1) KRISTINE (acute kidney injury): Code(s): N17.9 - Acute kidney failure, unspecified Status: Acute Assessment and Plan: Patient has developed KRISTINE probably from the contrast induced vs ATN from the infection vs from abx (AIN?). Nonoliguric. Renal US was normal. UA was normal. Ueos were negative. HIV negative. NM Renal scan showing symmetric kidney function with delayed contrast uptake and clearance c/w decreased renal function. Cr was up to 3.8 but now trending down. Nephrology was consulted and appreciate their input. Plan to have follow up BMP in 1 week (2) Necrotizing pneumonia: Code(s): J85.0 - Gangrene and necrosis of lung Status: Acute Assessment and Plan: Patient presents with pleuritic chest pain and found to have elevated white count and CT showing necrotizing pneumonia right upper lobe. BCx negative. Sputum cx growing Group A Strept. Echo normal. Was on vancomycin and Zosyn. Changed to Rocephin and Doxycycline due to the KRISTINE. Will continue to complete a 10 day course on 03/22/22. (3) Sepsis: Qualifiers: Sepsis acute organ dysfunction status: unspecified Sepsis type: sepsis due to unspecified organism Qualified Code(s): A41.9 - Sepsis, unspecified organism Code(s): A41.9 - Sepsis, unspecified organism Status: Acute Assessment and Plan: Present on admission with leukocytosis, low-grade fever, tachycardia. Related to pneumonia. Symptoms have resolved. Treatment as above. (4) Elevated LFTs: Code(s): R79.89 - Other specified abnormal findings of blood chemistry Status: Acute Assessment and Plan: AST 348 and ALT 138. AST greater than ALT so consider alcohol induced. No history of liver problems. He does drink alcohol excessively. RUQ showing hepatic steatosis. He was educated about the benefits of abstaining from alcohol use. Levels trended down. (5) Alcohol abuse: Code(s): F10.10 - Alcohol abuse, uncomplicated Status: Acute Assessment and Plan: Patient was educated about the benefits of abstaining from alcohol. He was treated with thiamine and folate. CIWA scores were elevated initially but improved. Librium was scheduled then slowly weaned. (6) Hyperglycemia: Code(s): R73.9 - Hyperglycemia, unspecified Status: Acute Assessment and Plan: Glucose was mildly elevated but repeat glucose normal. A1c was 4.6. [place] related to stress response. (7) Elevated blood pressure reading: Code(s): R03.0 - Elevated blood-pressure reading, without diagnosis of hypertension Status: Acute Assessment and Plan: Patient with elevated blood pressure on admission to as high as 170/106. Elevated blood pressure probably stress response but was still elevated off/on since admission. We held on treatment since want to continue good renal perfusion and BP may improve as his stress level improves at home. (8) Elevated lipase: Code(s): R74.8 - Abnormal levels of other serum enzymes Status: Acute Assessment and Plan: Lipase was mildly elevated. No evidence of pancreatitis on CT scan. Repeat lipase normal. Resolved (9) Tachycardia: Code(s): R00.0 - Tachycardia, unspecified Status: Acute Assessment and Plan: Patient with significant tachycardia on admission related to pain. With IV fluids and control of his pain, heart rate improved. (10) PTSD (post-traumatic stress disorder): Code(s): F43.10 - Post-traumatic stress disorder, unspecified Status: Inactive Assessment and Plan: Other providers have discussed use of CBT at discharge to manage the symptoms. He was treated with hydroxyzine and Ativan sparingly as needed here (11) Tobacco abuse: Code(s): Z72.0 - Tobacco use Status:
[2022-03-20 14:27] LABS: Anti Glomerular Basement Memb <1.0 AI (<1.0)
[2022-03-21 20:02] LABS: Albumin 63 %; Measured Kappa Chains <1.00 mg/dL (<2.00); Measured Lambda Chains <1.00 mg/dL (<2.00); Pro/Creat Ratio 340 mg/g creat (<=114)
--- NOTE | 2022-03-22 08:42 | PC.NURSE ---
ANti GBM is normal. MONIQUE is negative. Serum Immunofixation- no abn bands.
[2022-03-22 14:45] LABS: ANCA Screen Negative (Negative)
--- NOTE | 2022-03-26 10:34 | PC.NURSE ---
ANCA is negative. Dr. Carlos gonzalez.
[2022-04-03 09:28] LABS: Protein,total, 24 Hr Ur 450 mg/24h
[2022-04-03 09:29] LABS: Creat 24 Hr 1.32
--- NOTE | 2022-04-10 12:40 | PC.NURSE ---
urine immunofixation is not reportable. Dr. Carlos gonzalez.
== END 2022-03-20 11:30 | disposition home or self-care (01) | DRG 871 ==
LOC: ANHED 08:35 → ANH3MEDSUR 11:19
PROVIDERS: Emergency Medicine; Internal Medicine Nephrology; Admitting Provider Internal Medicine; Emergency Provider Emergency Medicine; Visit Provider Student in an Organized Health Care Education/Training Program
DX: A41.9 Sepsis, unspecified organism (principal); J85.0 Gangrene and necrosis of lung; N17.0 Acute kidney failure with tubular necrosis; N14.1 Nephropathy induced by other drugs, medicaments and biological substances; T50.8X5A Adverse effect of diagnostic agents, initial encounter; Y92.230 Patient room in hospital as the place of occurrence of the external cause; F43.10 Post-traumatic stress disorder, unspecified; G89.29 Other chronic pain; M54.50 Low back pain, unspecified; R59.0 Localized enlarged lymph nodes; K76.0 Fatty (change of) liver, not elsewhere classified; H91.90 Unspecified hearing loss, unspecified ear; F17.210 Nicotine dependence, cigarettes, uncomplicated; F10.10 Alcohol abuse, uncomplicated; Y90.9 Presence of alcohol in blood, level not specified; R73.9 Hyperglycemia, unspecified; R03.0 Elevated blood-pressure reading, without diagnosis of hypertension; M51.9 Unspecified thoracic, thoracolumbar and lumbosacral intervertebral disc disorder; M54.30 Sciatica, unspecified side; E86.0 Dehydration
CPT/HCPCS: 36415; 71275; 74175; 76705; 76775; 78707; 80048; 80053; 80069; 80074; 80076; 80202; 81001; 82550; 82570; 82607; 82746; 82948; 83036; 83520; 83605; 83690; 83735; 83880; 83883; 84100; 84132; 84156; 84300; 84484; 85025; 85380; 85610; 85652; 85730; 85999; 86036; 86038; 86140; 86160; 86162; 86334; 86335; 86703; 87040; 87070; 87077; 87205; 87449; 87899; 93005; 93306; 94640; 96361; 96365; 96366; 96367; 96368; 96372; 96375; 96376; 97161; 99285; A9270; A9562; G0378; G0432; J0295; J0360; J0696; J1170; J1650; J1885; J2060; J2270; J2405; J2543; J3010; J3370; J3475; J7030; J7120; Q9967

== ENCOUNTER 2024-11-07 05:01 | Emergency (ER) | payer OTHER, SELFPAY ==
--- NOTE | ~2024-11-07 | CT_ITS ---
EXAMINATION: CT lumbar spine wo con DATE: 11/07/2024 09:11 INDICATION: Low back pain. TECHNIQUE: Computed tomography (CT) of the lumbar spine was performed without intravenous contrast. A utomated exposure control and iterative reconstruction technique were employed. The dose-length produ ct was 345.99 mGy-cm. COMPARISON: None FINDINGS: The prostate is mildly enlarged. Alignment is normal. Vertebral body heights are normal. Th ere is mildly decreased disc height at L4-L5. The following disc levels are specifically discussed: L1-L2: The disc is bulging. There is mild bilateral facet joint osteoarthritis. There is no neural fo raminal stenosis. There is mild central canal stenosis. L2-L3: The disc is bulging. There is mild bilateral facet joint osteoarthritis. There is mild bilater al neural foraminal stenosis. There is mild central canal stenosis. L3-L4: The disc is bulging. There is mild right and moderate left facet joint osteoarthritis. There i s mild bilateral neural foraminal stenosis. There is mild central canal stenosis. L4-L5: The disc is bulging. There is moderate bilateral facet joint osteoarthritis. There is mild rig ht and moderate left neural foraminal stenosis. There is mild central canal stenosis. L5-S1: The disc is bulging. There is mild bilateral facet joint osteoarthritis. There is mild bilater al neural foraminal stenosis. There is mild central canal stenosis. IMPRESSION: 1. Moderate left neural foraminal stenosis at L4-L5. Otherwise mild lumbar spondylosis. Reviewed, dictated and finalized at location [facility] IMPRESSION: 1. Moderate left neural foraminal stenosis at L4-L5. Otherwise mild lumbar spon dylosis.
[2024-11-07 05:05] VITALS: BP 146/106; PULSE 116; RESP 22; TEMP 36.3; O2SAT 100
[2024-11-07] MEDS: SODIUM CHLORIDE 0.9% IV 1,000 ML 999 ML IV CONT (07:34)
[2024-11-07] MEDS: diazePAM INJ (*CRX) 10 MG/2 ML SYRINGE 5 MG IV PUSH (07:34)
[2024-11-07 07:35] VITALS: BP 113/81; PULSE 76; RESP 19; O2SAT 98
[2024-11-07] MEDS: KETOROLAC 30 MG/ML VIAL (*BKC) IV PUSH (07:35)
--- NOTE | 2024-11-07 08:12 | ED.BACK ---
HPI - Back Pain/Injury General Chief Complaint: Back Pain/Injury Stated Complaint: back pain Time Seen by Provider: 11/07/24 07:00 History of Present Illness HPI Narrative: Patient is a 44-year-old male who is [facility] who [facility] with low back pain. Slowly worsening over last 3 days. Reports he has 3 known bulging discs. He has had chronic pain for the last 15 years. He occasionally gets cortisone injections. No recent trauma. Pain radiates down the left leg and into the right groin. No functional deficit of urine/ stool. No fevers or chills or sweats. No improvement with [id number] pain medication. Reports he takes ibuprofen 800 mg 3 times a day. Related Data Allergies Allergy/AdvReac Type Severity Reaction Status Date / Time No Known Allergies Allergy Mild Verified 11/07/24 05:08 Review of Systems Review of Systems: All systems reviewed & are unremarkable except as noted in HPI and below Constitutional: Constitutional: Reports no additional constitutional complaints Cardiovascular: Cardiovascular: Reports no additional cardiovascular complaints Respiratory: Respiratory: Reports no additional respiratory complaints Gastrointestinal: Gastrointestinal: Reports no additional gastrointestinal complaints Musculoskeletal: Musculoskeletal: Reports back pain, Denies arthralgias and Denies joint swelling PMFSH Past Medical History Medical History (Updated 11/07/24 @ 09:37 by Aryan Sheets MD) Hearing loss Low back pain PTSD (post-traumatic stress disorder) Surgical History Surgical History History 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 He is . He has a teenage daughter. He denies any history of drug use except for the marijuana use as mentioned above. She smoked up to 1.5 pack per day for total of 5-6 years when he was in the [employer]. He switched to vaping and using nicotine gum and has been intermittently using nicotine for the past 20 years. He started smoking 10 months ago and is currently smoking 5 cigarettes a day. He drinks 3-5 nights per week usually consuming 5-6 drinks per night. He was in [place] and saw combat. 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 He nominates his father Kurt to be the individual would make medical decisions for him if he is unable. Years smoked: 1 Smoking status: Current every day smoker Tobacco type: cigarettes Second hand tobacco smoke exposure: Yes Alcohol intake: current Drinks per week: 25 Substance use: current Substance use type: marijuana Spiritual care concerns: No Exam Narrative: GENERAL: Well-appearing, well-nourished, and in no acute distress. HEAD: Normocephalic, atraumatic. ENT: Mucous membranes moist. CHEST: Clear to auscultation. No respiratory distress. HEART: Regular rate and rhythm. Normal peripheral pulses. BACK: No reproducible midline or paraspinal tenderness the T/L-spine. No surgical scars or evidence of trauma. EXTREMITIES: Normal range of motion. No edema. SKIN: Warm, dry, no rash. NEURO: Alert and oriented x3. PSYCH: Normal mood and affect. Course Course Emergency Course: patient given Toradol and Valium, still reporting some pain, gave 1 dose of [place]. patient appears comfortable. No major changes on CT scan, mild disc bulges and then 1 area left sided facet narrowing at L4-L5. Discharge home with Medrol Dosepak muscle relaxers. Encouraged rest. Will not treat with narcotics. Needs a follow-up with his doctor at the [facility] on 11/23/2024 as previously scheduled. Vital Signs Vital signs: Vital Signs Temperature 97.4 F L 11/07/24 05:05 Pulse Rate 116 H 11/07/24 05:05 Respiratory Rate 22 H 11/07/24 05:05 Blood Pressure 146/106 H 11/07/24 05:05 Pulse Oximetry 100 11/07/24 05:05 Oxygen Delivery Room Air 11/07/24 05:05 Temperature 97.4 F L 11/07/24 05:05 Pulse Rate 76 11/07/24 07:35 Respiratory Rate 19 11/07/24 07:35 Blood Pressure 113/81 11/07/24 07:35 Pulse Oximetry 98 11/07/24 07:35 Oxygen Delivery Room Air 11/07/24 05:05 MDM - Back Pain/Injury Imaging Data Radiologist's impression: ITS Impressions Lumbar Spine CT 11/07/24 09:15 IMPRESSION: 1. Moderate left neural foraminal stenosis at L4-L5. Otherwise mild lumbar spondylosis. Discharge Plan Discharge Clinical Impression: Chronic back pain, Sciatica Patient Disposition: Home, Self-Care Condition: Stable Instructions: Antibiotic Form, Sciatica (ED) Additional Instructions: Please return to the emergency department if you develop severe pain that is not controlled by pain medications or if you are unable to walk because of pain or weakness. Return to the emergency department immediately if you develop fevers, loss of bowel or bladder control (dribbling of urine or having accidents you wouldn't normally have), inability to urinate, numbness of your genital or anal area, or weakness/numbness of your legs or arms as these could all be signs of a serious medical emergency. Patient Language: Ukrainian Prescriptions: New methylprednisolone [Medrol (Derrick)] 4 mg tablets,dose pack See Rx Instructions .ROUTE .COMPLEX Qty: 21 0RF Rx Instructions: for 6 days cyclobenzaprine 10 mg tablet 10 mg PO TID PRN (Reason: muscle spasm) Qty: 20 0RF No Action doxycycline hyclate 100 mg Tablet 100 mg PO Q12HR Qty: 5 0RF cefdinir 300 mg capsule 300 mg PO DAILY Qty: 2 0RF Rx Instructions: Start on 03/21/22 Follow-up/Referrals: [facility] [Primary Care Provider] -
[2024-11-07] MEDS: HYDROcodone/acetaminophen (*CRX) 5-325 MG TABLET 1 TAB PO (09:04)
--- OUTSIDE RECORDS SUMMARY | 2024-11-14 04:28 | XMS_ITS ---
Author Name [facility] [place] [facility] [place] Address [address] [place] [address] Care Team Providers Care Instrument Specialist Name Role Phone JOSUE SCHILLING Primary Care Provider Unavailabl e Insurance Providers: All historical and current Section Date Range: From patient's date of to the date document was created. This section includes the names of all active insurance providers for the patient. Insurance Provider Type of Coverage Plan Name Start of Policy Coverage End of Policy Coverage Group Number Member ID Insurance Provider's Telephone Number Policy Cano's Name Patient's Relationship to Policy Cano [employer] PRESCRIPT ION RX PLAN Nov 17, 2018 [facility] [id number] Jose TABARES PATIENT [employer] RX PRESCRIPT ION [facility] Nov 17, 2018 [facility] [id number] Jose TABARES PATIENT [facility]ENT[facility] WHE[facility] N SECUR ITY Nov 17, 2018 [id number] [phone] Jose TABARES PATIENT [facility] ITY Nov 17, 2018 [id number] Jose TABARES PATIENT [facility] PREFERRED PROVIDER ORGANIZAT ION (PPO) WHELA N SECUR ITY Nov 17, 2018 [id number] [phone] Jose TABARES PATIENT [facility] PREFERRED PROVIDER ORGANIZAT ION (PPO) JOSE FRIEDMAN Nov 17, 2018 [id number] Jose TABARES PATIENT Selected Encounter This section includes the information on record at [place] for the Encounter. Date/Time Encounter Type Encounter Description Reason Provider Source Mar 15, 2024 11:40 AM EMERGENCY DEPT VISIT LOW [facility] EMERGENCY DEPT ICD-10-CM E87.6 Hypokalemia RADHA ZAMORA Tatyana Encounter Template Text not used by [place] Assessments - Encounter Diagnoses This section includes the primary and secondary diagnoses documented for the Encounter. Date/Time Primary/Secondary Diagnosis Diagnosis Name Provider Source Mar 15, 2024 04:01 PM PRIMARY Encounter for administrative examinations, unspecified RADHA ZAMORA [facility] Mar 15, 2024 04:01 PM PRIMARY Hypokalemia RADHA ZAMORA [facility] Mar 15, 2024 04:01 PM SECONDARY Paresthesia of skin RADHA ZAMORA [facility] Plan of Treatment: Future Appointments (+ 6 months) and Future Tests (+/- 45 days) The Plan of Treatment section includes future care activities for the patient from all [place] [facility]. This section includes future appointments and future orders which are active, pending or scheduled. Future Appointments This section includes appointments that were scheduled to occur 6 months from the date of the Encounter, up to a maximum of 20 appointments. The data comes from all [place] treatment facilities. Appointment Date/Time Appointment Type Appointme nt Facility Name March 30, 2024 11:30 AM AMBULATORY - MEDICINE [facility] Apr 19, 2024 02:00 PM AMBULATORY - NEUROLOGY [facility] Apr 27, 2024 11:00 AM AMBULATORY - PSYCHIATRY [facility] Apr 28, 2024 01:00 PM AMBULATORY - MEDICINE [facility] May 14, 2024 03:30 PM AMBULATORY - MEDICINE [facility] May 31, 2024 01:30 PM AMBULATORY - SURGERY [facility] Jul 05, 2024 01:30 PM AMBULATORY - PSYCHIATRY [facility] Aug 06, 2024 12:30 PM AMBULATORY - PSYCHIATRY [facility] Aug 18, 2024 11:00 AM AMBULATORY - MEDICINE [facility] Sep 06, 2024 02:30 PM AMBULATORY - PSYCHIATRY [facility] Active, Pending, and Scheduled Orders This section includes a listing of several types of active, pending, and scheduled orders, including clinic medications orders, diagnostic test orders, procedure orders and consult orders; where the start date of the order is 45 days before the date of the Encounter or 45 days after the date of theEncounter. The data comes from all [place] treatment facilities. Test Date/Time Test Type Test Details Facility Name Mar 15, 2024 12:00 PM Laboratory - Microbiology Order C&S URINE URINE,CLEAN CATCH WC [facility] Lab Results: +/- 30 days of the encounter This section includes the Chemistry and Hematology Lab Results on record with [facility] for the patient. Radiology Reports and Pathology Reports are provided separately, in subsequent sections. Lab Results This section contains the Chemistry/Hematology Results that were resulted 30 days before or 30 daysafter the date of the Encounter. Date/Time Source Result Type Result - Unit Interpretation Reference Range Comment March 30, 2024 12:07 PM [facility] METHADONE PANEL (STL) Specimen Type: URINE Comment: The cut-off value for this test was laboratory developed and its performance characteristics confirmed by the [facility] laboratory thru method comparison with reference laboratory and medication chart review. The laboratory is regulated under CLIA as qualified to perform high-complexity testing. This test is used for clinical purposes in conjunction with other laboratory tests. Ordering Provider: JOSUE SCHILLING Report Released Date/Time: March 30, 2024 11:53 AM Reporting Lab: [facility] [id number] Performing Lab: [facility] [address] ETHANOL Negative mg/dL 0-20 AMPHET/METHAMPHE TAMINE Negative ng/mL COCAINE METABOLITES Negative ng/mL BENZODIAZEPINES (STL) Negative ng/mL CANNABINOIDS 94-POS ng/mL METHADONE Negative ng/mL OPIATES Negative ng/mL CREATININE URINE/OTHERS 108.2 mg/dL 63.0-166.0 OXYCODONE (DAHFO-JYB-YR) Negative ng/mL BUPRENORPHINE (STL-PB-MA) Negative ng/mL FENTANYL (STL-PB) Negative ng/mL March 30, 2024 12:02 PM [facility] TSH (MA-PB) Specimen Type: SERUM No comment entered. Ordering Provider: JOSUE SCHILLING Report Released Date/Time: March 30, 2024 11:54 AM Reporting Lab: [facility] [address] Performing Lab: [facility] [address] TSH 1.066 u[IU]/mL 0.470 -5.00 0 March 30, 2024 12:02 PM [facility] HGA1C Specimen Type: BLOOD No comment entered. Ordering Provider: JOSUE SCHILLING Report Released Date/Time: March 30, 2024 11:54 AM Reporting Lab: [facility] [address] Performing Lab: [facility] [address] HGA1C 4.8 4.0-6.0 March 30, 2024 12:02 PM [facility] COMPREHENSIVE METABOLIC PANEL Specimen Type: PLASMA Comment: No hemolysis noted. Ordering Provider: JOSUE SCHILLING Report Released Date/Time: March 30, 2024 11:54 AM Reporting Lab: [facility] [address] Performing Lab: [facility] [address] CREATININE 0.78 mg/dL 0.70-1.30 UREA NITROGEN 7.5 mg/dL L 9.0-25.0 GLUCOSE 104 mg/dL H 72-99 SODIUM 139 meq/L 136-145 POTASSIUM 3.8 meq/L 3.5-5.0 CHLORIDE 103 meq/L 98-107 CARBON DIOXIDE 27 meq/L 22-31 CALCIUM 9.5 mg/dL 8.4-10.4 PROTEIN 6.9 g/dL 6.0-8.6 ALBUMIN 4.3 g/dL 3.4-5.0 TOTAL BILIRUBIN 0.6 mg/dL 0.2-1.2 ALKALINE PHOSPHATASE 57 U/L 40-150 AST/SGOT 31 U/L 5-34 ALT/SGPT 24 U/L 8-40 EGFR (CKD-EPI 2020) 114.19 >60 March 30, 2024 12:02 PM [facility] CBC Specimen Type: BLOOD No comment entered. Ordering Provider: JOSUE SCHILLING Report Released Date/Time: March 30, 2024 11:54 AM Reporting Lab: [facility] [address] Performing Lab: [facility] [address] WBC 7.1 10*3/uL 3.6-11.2 RBC 4.14 10*6/uL 4.10-5.70 HGB 13.6 g/dL 13.1-16.8 HCT 38.0 L 38.2-48.4 MCV 91.8 fL 80.0-100.0 MCH 32.9 pg 27.0-34.0 MCHC 35.8 g/dL 33.0-36.0 PLT 306 10*3/uL 150-400 MPV 8.8 fL 7.5-11.2 RDW 11.5 L 11.8-15.1 LYMPHOCYTES, AUTO % 43 MONOCYTES, AUTO % 9 NEUTROPHILS, AUTO % 44 EOSINOPHILS, AUTO % 4 BASOPHILS, AUTO % 1 LYMPHOCYTES, ABSOLUTE 3.01 10*3/uL 0.77-4.50 MONOCYTES, ABSOLUTE 0.63 10*3/uL 0.19-0.80 NEUTROPHILS, ABSOLUTE 3.08 10*3/uL 2.10-8.00 EOSINOPHILS, ABSOLUTE 0.26 10*3/uL 0.00-0.60 BASOPHILS, ABSOLUTE 0.07 10*3/uL 0.00-0.20 Mar 15, 2024 12:35 PM [facility] BRAIN NATRIURETIC PEPTIDE Specimen Type: PLASMA No comment entered. Ordering Provider: Mari ALVAREZ Report Released Date/Time: Mar 15, 2024 12:00 PM Reporting Lab: [facility] [address] [facility] [place] [address] Performing Lab: [address] [address] BRAIN NATRIURETIC PEPTIDE 38.5 pg/mL 0-100 Mar 15, 2024 12:35 PM [facility] COVID-19 DIAGNOSTIC (FLU/RSV)(STL) Specimen Type: NASOPHARYNX Comment: Qualitative real-time PCR and RT-PCR to detect viral RNA. A negative result does not preclude infection with the agent(s) tested and should not be used as the sole basis for treatment or other patient management decisions. If negative, but symptoms persist, consider re-testing. Positive results do not rule out bacterial infection or co-infection with other viruses. All results must be combined with clinical observations, patient history, and epidemiological information for final interpretation. Ordering Provider: Mari ALVAREZ Report Released Date/Time: Mar 15, 2024 12:00 PM Reporting Lab: [address] [address] Performing Lab: [address] [address] INFLUENZA A Negative Negative INFLUENZA B Negative Negative COVID-19 (STL-PB) Not Detected Not Detected RSV (Cepheid) NEGATIVE Negative Mar 15, 2024 12:35 PM [facility] COMPREHENSIVE METABOLIC PANEL Specimen Type: PLASMA Comment: No hemolysis noted. Ordering Provider: Mari ALVAREZ Report Released Date/Time: Mar 15, 2024 12:00 PM Reporting Lab: [address] [address] Performing Lab: [address] [address] CREATININE 0.79 mg/dL 0.7-1.3 UREA NITROGEN 6.3 mg/dL L 9.0-25.0 GLUCOSE 79 mg/dL 72-99 SODIUM 139 meq/L 136-145 POTASSIUM 3.3 meq/L L 3.5-5 CHLORIDE 103 meq/L 98-107 CARBON DIOXIDE 28 meq/L 22-31 CALCIUM 9.0 mg/dL 8.4-10.4 PROTEIN 6.6 g/dL 6-8.6 ALBUMIN 3.9 g/dL 3.4-5 TOTAL BILIRUBIN 0.4 mg/dL 0.2-1.2 ALKALINE PHOSPHATASE 54 U/L 40-150 AST/SGOT 53 U/L H 5-34 ALT/SGPT 37 U/L 8-40 EGFR (CKD-EPI 2020) 113.8 >60 Mar 15, 2024 12:35 PM [facility] CBC Specimen Type: BLOOD No comment entered. Ordering Provider: Mari ALVAREZ Report Released Date/Time: Mar 15, 2024 12:00 PM Reporting Lab: [address] [address] Performing Lab: [address] [address] WBC 6.4 10*3/uL 3.6-11.2 RBC 3.86 10*6/uL L 4.10-5.70 HGB 12.6 g/dL L 13.1-16.8 HCT 38.1 L 38.2-48.4 MCV 98.7 fL 80.0-100.0 MCH 32.6 pg 27.0-34.0 MCHC 33.1 g/dL 33.0-36.0 PLT 277 10*3/uL 150-400 MPV 9.0 fL 7.5-11.2 RDW 11.9 11.8-15.1 LYMPHOCYTES, AUTO % 37 MONOCYTES, AUTO % 13 NEUTROPHILS, AUTO % 44 EOSINOPHILS, AUTO % 5 BASOPHILS, AUTO % 1 LYMPHOCYTES, ABSOLUTE 2.32 10*3/uL 0.77-4.50 MONOCYTES, ABSOLUTE 0.82 10*3/uL H 0.19-0.80 NEUTROPHILS, ABSOLUTE 2.82 10*3/uL 2.10-8.00 EOSINOPHILS, ABSOLUTE 0.29 10*3/uL 0.00-0.60 BASOPHILS, ABSOLUTE 0.09 10*3/uL 0.00-0.20 Mar 15, 2024 12:35 PM [facility] MAGNESIUM Specimen Type: PLASMA No comment entered. Ordering Provider: RADHA ZAMORA Report Released Date/Time: Mar 15, 2024 02:05 PM Reporting Lab: [facility] [address] [facility] [address] Performing Lab: [facility] [address] [facility] [address] MAGNESIUM 1.7 mg/dL 1.6-2.6 Mar 15, 2024 12:35 PM [facility] TSH (MA-PB) Specimen Type: SERUM No comment entered. Ordering Provider: RADHA ZAMORA Report Released Date/Time: Mar 15, 2024 02:05 PM Reporting Lab: [facility] [address] [facility] [address] Performing Lab: [place] [id number] [facility] [address] TSH 1.227 u[IU]/mL 0.47-5 Vital Signs: All taken on the encounter date This section contains inpatient and outpatient Vital Signs collected on the date of the Encounter. Date/Time Temperature Pulse Blood Pressure Respiratory Rate SP02 Pain Height Weight Body Mass Index Source Mar 15, 2024 03:00 PM 64 117/88 [facility] N Mar 15, 2024 02:00 PM 69 121/93 [facility] Mar 15, 2024 11:56 AM 89 135/87 18 7 [facility] N Social History: Smoking Status (Most current) and Tobacco Use (All prior to encounter date) This section includes the most current, and the historical, smoking and tobacco- related health factors from the [place] facility where the Encounter took place. Current Smoking Status This section includes the most current smoking, or tobacco-related health factor, from the [place] facility where the Encounter took place. Date/Time Current Smoking Status Comment Facil ity May 07, 2023 06:21 AM ORYX ADMIT TOBACCO SCREEN YES [facility] Tobacco Use History This section includes a history of the smoking, or tobacco-related health factors, that were collected on or before the date of the Encounter. The data comes from the [place] facility where the Encounter took place. Date/Time Smoking Status/Tobacco Use Comment F acility May 07, 2023 06:21 AM ORYX ADMIT TOBACCO USE CIGS LS 5D 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 May 07, 2023 06:21 AM ORYX DAILY TOBACCO MEDS REFUSED [facility] Oct 27, 2013 02:51 PM QUIT TOBACCO >7 YEARS AGO [facility] Jan 07, 2013 10:01 AM CURRENT TOBACCO USER [facility] Jan 07, 2013 10:01 AM TOBACCO MEDS OFFER ED BUT DECLINED [facility] Sep 18, 2011 12:08 PM QUIT TOBACCO IN TH E LAST 12 MONTHS [facility] Jul 25, 2011 03:33 PM CURRENT TOBACCO USER [facility] Jul 20, 2010 10:35 AM QUIT TOBACCO IN TH E LAST 12 MONTHS [facility] Advance Directives: All historical and current Section Date Range: From patient's date of to the date document was created. This section includes ALL of a patient's completed or amended [place] Advance and Rescinded Directives. The entries below indicate that a directive exists for the patient, but an actual copy is not included with this document. The data comes from all [place] facilities. Date Advance Directives Provider Source May 07, 2023 ADVANCE DIRECTIVE DARLEEN ENRIQUEZ [facility] Encounter Notes: All associated encounter notes This section contains the clinical notes associated to the Encounter. Date/Time Encounter Note(s) Provider Source Mar 15, 2024 12:02 PM PHYSICIAN EMERGENC Y DEPT NOTE: LOCAL TITLE: EMERGENCY DEPARTMENT [facility] STANDARD TITLE: PHYSICIAN EMERGENCY DEPT NOTE DATE OF NOTE: MAR 15, 2024@12:02 ENTRY DATE: MAR 15, 2024@12:02:03 AUTHOR: RADHA ZAMORA COSIGNER: URGENCY: STATUS: COMPLETED TRIAGE CHIEF COMPLAINT: Cramping, paresthesias, bilateral lower extremity swelling HPI: Patient is a 43-year-old male with a history of TBI, anxiety, ADHD, alcohol use, presents with complaint of bilateral lower extremity swelling over the past week as well as gradually worsening pain in the bilateral hands and wrists, radiating proximally and paresthesias in his hands and legs. He reports that he has had the exact same symptoms in the past when he has been found to have hypokalemia. He was seen in the emergency department in June 2023 twice for similar symptoms and was found to have hypokalemia. He was treated at those times with potassium supplementation and his symptoms rapidly resolved. He does take an OTC potassium supplement currently but believes that it is a very low dose. He takes multivitamins, fish oils, no other herbal medications No other medications He does note that he has been outside working in the yard a lot with the warmer weather and wonders if this may be contributing. Per review of CPRS he did follow-up with his primary care physician about this in July. He had previously been seen by rheumatology for similar symptoms in his hands and wrists and there was no evidence of inflammatory rheumatologic problem. REVIEW OF SYSTEMS: See HPI for further details. All 10 systems reviewed and otherwise negative unless otherwise detailed herein. PAST MEDICAL HISTORY: 1) Low back pain (SNOMED CT 737274294) 2) Traumatic brain injury with no loss of consciousness (SNOMED CT 673741672) 3) Acute posttraumatic stress disorder following combat (SNOMED CT 955479520) 4) Concussion (ICD-9-CM 850.9) 5) Anxiety * (ICD-9-CM 300.00/300.09) 6) Depression * (ICD-9-CM 311./300.4) 7) Attention-deficit hyperactivity disorder * 8) Unemployment 9) Palpitations (ICD-9-CM 785.1) 10) Routine General Medical Examination at a Health Care Facility * (ICD-9-CM V70.0) 11) Lumbosacral radiculopathy (SNOMED CT 0659426) 12) Tobacco use 13) Pain 14) Abnormal blood pressure 15) Chronic depression 16) Admits alcohol use 17) Insomnia 18) Alcohol abuse 19) Hypokalemia CURRENT MEDICATIONS: Active Outpatient Medications (including Supplies): No Medications Found No medications found.. I have reviewed the patient's medication list with the patient and/or his/her care-after school caregiver. Any medication discrepancies have been resolved. Patient will be provided with an updated list of his/her medication(s). SURGICAL HISTORY: not pertinent FAMILY HISTORY: not pertinent SOCIAL HISTORY: Social History Main Topics: Smoking status: 10/17/2017 Current Tobacco User Alcohol Use: not endorsed 327-POS mg/dL H (05/06/23 22:15) Illicit Drug Use: not endorsed Sexual Activity: Other Topics of Concern: Child bearing age: N/A LMP: N/A possible: N/A ALLERGIES: Review of patient's allergies indicates: Patient has answered NKA PHYSICAL EXAM: VITAL SIGNS: 135/87 (03/15/2024 11:56) 89 (03/15/2024 11:56) 97% (07/13/2023 16:30) 97.9 F [36.6 C] (07/13/2023 13:04) 18 (03/15/2024 11:56) Measurement DT WEIGHT LB(KG)[BMI] 06/05/2023 11:05 172(78.02)[24] Measurement DT PAIN 03/15/2024 11:56 7 CONSTITUTIONAL: No acute distress, Non-toxic appearance, pleasant and conversant HENT: airway patent, normal voice EYES: Conj pink, sclera clear NECK: Grossly normal range of motion, Supple, No stridor. CARDIOVASCULAR: Normal heart rate, Normal rhythm, No noted murmurs/gallops PULMONARY/CHEST: CTA bilaterally, no noted wheezing or rales : RECTAL: EXTREMITIES: Grossly Normal range of motion, Intact bilateral DP and radial pulses, very mild symmetric distal bilateral lower extremity edema, No focal tenderness No appreciable wrist or hand swelling, no skin discoloration NEUROLOGIC: Alert & oriented/reactive, Grossly normal motor function, Normal gait observed, no ataxia, No focal deficits appreciated on cursory screening exam SKIN: Warm, Dry, No erythema, No appreciable significant rash LABS: RADIOLOGY: ECG IMPRESSION: Twelve-lead EKG reveals normal sinus rhythm 88 bpm, no ST elevation/depression, QTC 464 ED COURSE & MEDICAL DECISION MAKING: Updated patient on lab results. Mild hypokalemia noted, though I would clinically suspect it would be unlikely to be the culprit for his symptoms. Regardless he insists that he had identical symptoms with hypokalemia in the past and probably improved with supplementation. Oral K CL in the ED ordered and will treat with supplementation daily for a week. Recommend close follow-up with his primary care physician. He is comfortable with this plan. Nursing notes, medications, vital signs, allergies and pertinent labs & imaging studies reviewed (see chart for details) with lab results reviewed with patient and family/caregivers at bedside and radiology results reviewed with patient and any family/caregivers at bedside. Stable, alert, nontoxic, nonfocal with clinically apparent hypokalemia, paresthesias Clinical information obtained from an independent historian. History obtained from or confirmed by: ___spouse ___parent/guardian _x__family ___friend ___EMS ___other: I performed an independent interpretation of: ___EKG ___rhythm strip ___plain x-ray report ___ultrasound report ___CT scan report ___MRI report _x__labs ___other Patient's care impacted by: ___Diabetes ___Hypertension ___Cancer ___other: Patient's care is significantly limited by social determinants of health including, but not limited to: ___inadequate housing ___low income ___alcoholism and drug addiction in family ___problems related to primary support group ___unemployment/problems with employment ___language barrier ___lack of transportation ___psychiatric disease ___other social determinants of health: External records reviewed: ___Inpatient records _x__outpatient records _x__prior outpatient labs ___prior outpatient radiology ___primary care record ___outside ED/Urgent Care record ___PMD referral ___other: Management of the patient was discussed with: ___Medicine team ___consultant ___behavioral health provider ___primary care provider ___other: I considered prescription management with the following but ultimately did not prescribe: ___pain medication ___antiviral ___antibiotic ___other: I considered admission/ observation but decided upon discharge due to: Unremarkable ED work-up, clinically appropriate for outpatient denial management representative SERVICE/TIME: MEDICATIONS GIVEN IN ED: [ x ] YES [ ] NO KCl, NS DIFFERENTIAL DIAGNOSES CONSIDERED: Hypokalemia, hypomagnesemia paresthesias, edema, KRISTINE DECISION to ADMIT / DISCHARGE TIME: 1529 DISPOSITION CONDITION:[X] Improved [ ] Unchanged [ ] Deteriorated CLINICAL IMPRESSION: 1 -hypokalemia 2 -paresthesias DISCHARGE INSTRUCTIONS AND PATIENT-DIRECTED FOLLOW-UP RECOMMENDATIONS: DIET: regular ACTIVITY: ad marcelo NEW MEDS: KCl daily as prescribed ADDITIONAL INSTRUCTIONS: Please call primary care physician for follow- up appointment MEDICATION RECONCILIATION: CONTINUE ALL PRESCRIBED MEDICATIONS DIRECTED FOLLOW-UP WITH PRIMARY ANESTHETIC ASSISTANT/SPECIALIST: routine in 1-2 weeks if not improving, sooner if worse RETURN TO EMERGENCY: if any worries or concerns ADDITIONAL SIGNATURE PCP: [x ] YES [ ] NO [ ] not listed Active Outpatient Medications (including Supplies): No Medications Found /es/ RADHA ZAMORA MD STAFF PHYSICIAN Signed: 03/15/2024 15:40 Receipt Acknowledged By: 03/16/2024 08:12 /es/ HERIBERTO CONRAD BSN RN CCRN REGISTERED NURSE 03/16/2024 12:13 /es/ Josue Schilling MD Staff Physician RADHA ZAMORA [facility] Mar 15, 2024 11:54 AM EMERGENCY DEPT TRI AGE NOTE: LOCAL TITLE: EMERGENCY DEPARTMENT TRIAGE NOTE STANDARD TITLE: EMERGENCY DEPT TRIAGE NOTE DATE OF NOTE: MAR 15, 2024@11:54 ENTRY DATE: MAR 15, 2024@11:54:11 AUTHOR: AIDEN BURGOS COSIGNER: URGENCY: STATUS: COMPLETED EMERGENCY DEPARTMENT TRIAGE NOTE Has ADDENDA Emergency Department/Urgent Care Center Triage Patient age:43 Sex: MALE On arrival patient was: AMBULATORY Patient phone number: Allergies: Patient has answered NKA Subjective/Chief Complaint: bilatareral hand cramping Objective: Pt reports bilataeral hand tingling, cramping, cramping in back, bilateral lower extremitiy swelling. He reports in the past his potassium was low. Pt denies CP/N/V/D. He does report increased frequency in urination w/ urgency. The patient is not a fall risk. BP: P: R: WT: T: HT: Pulse 89 Respirations 18 Blood Pressure 135/87 Pain scale recorded: 7 Pulse Oximetry 100 Room Air Sepsis Screening Evaluation Emergency Severity Index (NOHEMY) level Level 3 Current Medications: Active Outpatient Medications (including Supplies): No Medications Found Current Problems: 1) Low back pain (SNOMED CT 141630352) 2) Traumatic brain injury with no loss of consciousness (SNOMED CT 049909577) 3) Acute posttraumatic stress disorder following combat (SNOMED CT 234615478) 4) Concussion (ICD-9-CM 850.9) 5) Anxiety * (ICD-9-CM 300.00/300.09) 6) Depression * (ICD-9-CM 311./300.4) 7) Attention-deficit hyperactivity disorder * 8) Unemployment 9) Palpitations (ICD-9-CM 785.1) 10) Routine General Medical Examination at a Health Care Facility * (ICD-9-CM V70.0) 11) Lumbosacral radiculopathy (SNOMED CT 0169200) 12) Tobacco use 13) Pain 14) Abnormal blood pressure 15) Chronic depression 16) Admits alcohol use 17) Insomnia 18) Alcohol abuse 19) Hypokalemia Suicide Screen: [place] Suicide Severity Rating Scale (C-SSRS) screener 1. Over the past month, have you wished you were or wished you could go to sleep and not wake up? No 2. Over the past month, have you had any actual thoughts of killing yourself? No 3. Over the past month, have you been thinking about how you might do this? Response not required due to responses to other questions. 4. Over the past month, have you had these thoughts and had some intention of acting on them? Response not required due to responses to other questions. 5. Over the past month, have you started to work out or worked out the details of how to kill yourself? Response not required due to responses to other questions. 6. If yes, at any time in the past month did you intend to carry out this plan? Response not required due to responses to other questions. 7. In your lifetime, have you ever done anything, started to do anything, or prepared to do anything to end your life (for example, collected pills, obtained a gun, gave away valuables, went to the roof but didn't jump)? No 8. If YES, was this within the past 3 months? Response not required due to responses to other questions. /loyda/ NAVI MCDUFFIE, RN REGISTERED NURSE Signed: 03/15/2024 11:59 03/15/2024 ADDENDUM STATUS: COMPLETED 1310 Assume the care of this patient into room 102-2. Patient resting in lowlock stretcher with siderails up x2, call light within reach. 20G RAC PAL initiated during triage. NAD observed, patient remain on continuous hemodynamic monitor. 1400 Patient resting in lowlock stretcher with siderails up x2, call light within reach. NAD observed, patient remain on continuous hemodynamic monitor. Blood Pressure: 121/93 Pulse: 69 Pulse Oximetry: 100%RA 1430 Medications given per MD order. --SODIUM CHLORIDE 0.9% INJ,SOLN 1000 ml IV LABEL@0 Indication: FOR VOLUME REPLACEMENT --POTASSIUM CHLORIDE SA TAB,SA 40MEQ PO ONE-TIME ER administration Indication: FOR HYPOKALEMIA 1500 Patient resting in lowlock stretcher with siderails up x2, call light within reach. NAD observed, patient remain on continuous hemodynamic monitor. Blood Pressure: 117/88 Pulse: 64 Pulse Oximetry: 100%RA 1543 Pt DC to home/self care at this time. Pt provided w/DC education and instructions, pt verbalizes understanding and denies any further needs at this time. Pt ambulatory to steady gait to ED WR. NAD observed. 20G PAL removed without complications and catheter intact. /loyda/ CRISTOFER RODRIGUEZ,MSN,RN REGISTERED NURSE Signed: 03/15/2024 15:54 [facility]
--- OUTSIDE RECORDS SUMMARY | 2024-11-14 04:28 | XMS_ITS | Continuity of Care Document ---
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 It does not include entries that were removed or entered in error. Problem Status Onset Date Problem Type Date of Resolution Comments Source adjustment disorder with anxiety and depressed mood Active Condition [facility] visit for: administrative purpose Active Condition DoD carbuncle in groin Active Condition DoD lymphangitis acute Inactive Condition Do D iliotibial band friction syndrome Active Condition [facility] patellofemoral syndrome Active Condition [facility] no psychiatric diagnosis or condition on axis I Inactive Condition [facility] psychiatric diagnosis or condition deferred on axis I Active Condition DoD visit for: services physical Inactive Condition [facility] Patient Counseling: Inactive Condition D oD pharyngitis Inactive Condition PHARYNGITIS DoD warts Inactive Condition WARTS DoD lower back sprain Inactive Condition LOWER BACK SPRAIN DoD Physical Examination Inactive Condition Physical Examination DoD routine ophthalmological exam Inactive Condition NORMAL ROUTINE OPHTHAMOLOGICAL EXAM DoD backache Inactive Condition DoD multiple blisters Inactive Condition bl isters heeling well. educated pt.on self-care. follow-up is s/s worsen DoD visit for: follow-up exam Inactive Condition stop motrin DoD acquired deformity of foot cavus Active Condition [facility] Pain / Temp Decrease Leg / Foot Active Condition [facility] knee sprain Inactive Condition DoD upper respiratory infection Inactive Condition DoD Abnormal blood pressure Active Condition [facility] Acute posttraumatic stress disorder following combat (SNOMED CT 493173359) Active Condition [facility] Admits alcohol use Active Condition [facility] Alcohol abuse Active Condition [facility] Anxiety * (ICD-9-CM 300.00/300.09) Active Condition [facility] Attention-deficit hyperactivity disorder * Active Condition [facility] Bilateral carpal tunnel syndrome Active Condition [facility] Chronic depression Active Condition [facility] Concussion (ICD-9-CM 850.9) Active Condition [facility] Depression * (ICD-9-CM 311./300.4) Active Condition [facility] Hypokalemia Active Condition [facility] Insomnia Active Condition [facility] Low back pain (SNOMED CT 169329352) Active Condition [facility] Lumbosacral radiculopathy (SNOMED CT 8866599) Active Condition [facility] Pain Active Condition [facility] Palpitations (ICD-9-CM 785.1) Active Condition [facility] Posttraumatic stress disorder Active Condition [facility] Routine General Medical Examination at a Health Care Facility * (ICD-9-CM V70.0) Active Condition [facility] Tobacco use Active Condition [facility] Traumatic brain injury with no loss of consciousness (SNOMED CT 513646331) Active Condition [facility] Unemployment Active Condition [facility] Diagnosis: ICD-10-CM G56.01 Carpal tunnel syndrome, right upper limb Active Diagnosis [facility] Diagnosis: ICD-10-CM Z04.89 Encounter for examination and observation for oth reasons Active Diagnosis [facility] Diagnosis: ICD-10-CM Z01.810 Encounter for preprocedural cardiovascular examination Active Diagnosis [facility] Diagnosis: ICD-10-CM G56.03 Carpal tunnel syndrome, bilateral upper limbs Active Diagnosis [facility] Diagnosis: ICD-10-CM F32.89 Other specified depressive episodes Active Diagnosis [facility] Diagnosis: ICD-10-CM R03.0 Elevated blood-pressure reading, w/o diagnosis of htn Active Diagnosis [facility] Diagnosis: ICD-10-CM F10.90 Alcohol use, unspecified, uncomplicated Active Diagnosis [facility] Diagnosis: ICD-10-CM Z72.[address] Tobacco use Active Diagnosis [facility] Diagnosis: ICD-10-CM R52 Pain, unspecified Active Diagnosis [facility] Diagnosis: ICD-10-CM F43.11 Post-traumatic stress disorder, acute Active Diagnosis [facility] Diagnosis: ICD-10-CM E87.6 Hypokalemia Active Diagnosis [facility] Diagnosis: ICD-10-CM M79.10 Myalgia, unspecified site Active Diagnosis Joe RAMU S [facility] Diagnosis: ICD-10-CM Z59.811 Housing instability, housed, with risk of homelessness Active Diagnosis [facility] Diagnosis: ICD-10-CM H53.71 Glare sensitivity Active Diagnosis Joe MONSEJamaica VARGAS [facility] Diagnosis: ICD-10-CM Z71.9 Counseling, unspecified Active Diagnosis [facility] Medications Combined list of outpatient medications from Department of Defense and [facility] Affairs facilities.Medications provided include 1) outpatient medications from the last 15 months, and 2) patient-reported medications. Medication Details Route Status Patient Instructions Prescription Expires Prescription Number Last Dispense Date Ordering Provider Order Date Order Qty Source HYDROXYZINE HCL 25MG TAB TAKE ONE TABLET BY MOUTH THREE TIMES A DAY NEEDED *MAY CAUSE DROWSINE SS* ORAL ACTIVE 07/06/2025 [id number] LOITERSTE INMARIANO 2023 90 [facility] MELOXICAM 15MG TAB TAKE ONE TABLET BY MOUTH ONCE A DAY NEEDED ORAL 06/27/2024 [id number] Ce NGO 2023 60 [facility] MIRTAZAPINE 30MG TAB TAKE ONE-HALF TABLET BY MOUTH AT BEDTIME ORAL ACTIVE 07/06/2025 [id number] LOITERSTE INMARIANO 2023 45 [facility] POTASSIUM CHLORIDE 20MEQ TAB,SA (DISPERSIBL E) TAKE ONE TABLET BY MOUTH ONCE A DAY TAKE WITH FOOD ORAL DISCONT INUED BY PROVIDE R 04/14/2024 [id number] 4 TALON ZAMORA CARLITOS Guerra 2023 7 [facility] PREGABALIN 50MG CAP,ORAL TAKE ONE CAPSULE BY MOUTH TWICE A DAY *MAY CAUSE DROWSINE SS* ORAL 10/29/2024 [id number] 4 Ce NGO 2023 60 [facility] THIAMINE 100MG TAB TAKE ONE TABLET BY MOUTH ONCE A DAY FOR DIETARY SUPPLEME NTATION. ORAL DISCONT INUED BY PROVIDE R 10/19/2023 [id number] DEDRA ANTHONY 2021 100 [facility] TRAZODONE HCL 100MG TAB TAKE ONE-HALF TABLET BY MOUTH AT BEDTIME NEEDED FOR MOOD OR SLEEP. ORAL DISCONT INUED BY PROVIDE R 01/17/2024 [id number] 3 EFE ALVARADO 2022 45 [facility] Allergies, Adverse Reactions, Alerts Combined list of allergies from Department of Defense and Veterans Affairs facilities. It does not include entries that were removed or entered in error. Substance Category Reaction Severity Reaction type Status Date Reported Comments Source No Known Allergies Drug allergy (disorder) active 03/14/2009 [facility] Immunizations Combined list of available immunizations from the Department of Defense and Veterans Affairs facilities. Immunization Series Date Given Administered By Site Reaction Lot Number CVX Code Drug Lead Neurodiagnostic Technologist Status Comments Source PNEUMOCOCCAL CONJUGATE PCV20, POLYSACCHARID E [id number] CONJUGATE, ADJUVANT, PF 2021 VIVIANE BHAT LEFT DELTO ID [id number] complet ed [facility] INFLUENZA, UNSPECIFIED FORMULATION 2017 88 complet ed [facility] TDAP 2016 115 complet ed Left Deltoid [facility] INFLUENZA, UNSPECIFIED FORMULATION 2013 88 complet ed [facility] INFLUENZA, UNSPECIFIED FORMULATION 2013 88 complet ed [facility] INFLUENZA, UNSPECIFIED FORMULATION 2012 88 complet [facility] DIV[facility] N INFLUENZA, UNSPECIFIED FORMULATION 2011 88 complet [facility] TDAP 2010 115 [facility] influenza virus vaccine, split virus (incl. purified surface antigen)-reti red CODE 1 2010 UNK 15 Unknown (UNK) comple [facility] influenza virus vaccine, split virus (incl. purified surface antigen)- retired CODE [facility] INFLUENZA, UNSPECIFIED FORMULATION 2009 88 complet [facility] influenza virus vaccine, live, attenuated, for intranasal use 1 2008 [id number] [employer] (MED) complet influenza virus vaccine, live, attenuate d, for intranasa l use DoD influenza virus vaccine, live, attenuated, for intranasal use 1 2007 [id number] Unknown (UNK) comple t influenza virus vaccine, live, attenuate d, for intranasa l use DoD anthrax vaccine 4 2007 UNK 24 Unknown (UNK) comple t ed anthrax vaccine DoD TDAP 2007 115 complet [facility] influenza virus vaccine, split virus (incl. purified surface antigen)-reti red CODE 1 2006 [id number] 15 Unknown (UNK) complet influenza virus vaccine, split virus (incl. purified surface antigen)- retired CODE DoD vaccinia (smallpox) vaccine 1 2006 [id number] 75 [place] (ASHLEY) complet ed vaccinia (smallpox ) vaccine DoD typhoid Vi capsular polysaccharid e vaccine 1 2006 [id number] [employer] (AVB) complet ed typhoid Vi capsular polysacch aride vaccine DoD varicella virus vaccine 1 2006 UNK 21 Unknown (UNK) Not Given varicella virus vaccine DoD anthrax vaccine 3 2006 [id number] [employer] [place] ([facility]) complet ed anthrax vaccine DoD hepatitis A and hepatitis B vaccine 3 2006 [id number] 104 [employer] (SKB) complet ed hepatitis A and hepatitis B vaccine DoD influenza virus vaccine, split virus (incl. purified surface antigen)-reti red CODE 1 2006 UNK 15 Unknown (UNK) comple t ed influenza virus vaccine, split virus (incl. purified surface antigen)- retired CODE DoD vaccinia (smallpox) vaccine 1 2004 UNK 75 Unknown (UNK) comple t ed vaccinia (smallpox ) vaccine DoD anthrax vaccine 2 2004 [id number] 24 Cecille (BP) complet ed anthrax vaccine DoD hepatitis B vaccine, adult dosage 3 2004 [id number] 43 [facility] ed hepatitis B vaccine, adult dosage DoD influenza virus vaccine, split virus (incl. purified surface antigen)-reti red CODE 1 2004 UNK 15 Sanofi Pasteur ([facility]) complet ed influenza virus vaccine, split virus (incl. purified surface antigen)- retired CODE DoD anthrax vaccine 1 2004 [id number] 24 Cecille (BP) complet ed anthrax vaccine DoD typhoid Vi capsular polysaccharid e vaccine 1 2004 [id number] Sanofi Pasteur ([facility]) complet ed typhoid Vi capsular polysacch aride vaccine DoD hepatitis B vaccine, adult dosage 2 2004 [id number] 43 Merck (MSD) complet ed hepatitis B vaccine, adult dosage DoD hepatitis A vaccine, adult dosage 2 2004 [id number] Merck (MSD) complet ed hepatitis A vaccine, adult dosage DoD measles, mumps and rubella virus vaccine 1 2003 [id number] Merck (MSD) complet ed measles, mumps and rubella virus vaccine DoD tetanus and diphtheria toxoids, adsorbed, preservative free, for adult use (2 Lf of tetanus toxoid and 2 Lf of diphtheria toxoid) 1 2003 [id number] Sanofi Pasteur ([facility]) complet ed tetanus and diphtheri a toxoids, adsorbed, preservat migdalia free, for adult use (2 Lf of tetanus toxoid and 2 Lf of diphtheri a toxoid) DoD poliovirus vaccine, inactivated 1 2003 [id number] 10 Sanofi Pasteur ([facility]) complet ed polioviru s vaccine, inactivat ed DoD meningococcal polysaccharid e vaccine (MPSV4) 1 2003 UNK 32 Unknown (UNK) comple t ed meningoco ccal polysacch aride vaccine (MPSV4) DoD pneumococcal polysaccharid e vaccine, 23 valent 1 2003 [id number] Sanofi Pasteur ([facility]) complet ed pneumococ john polysacch aride vaccine, 23 valent DoD hepatitis A and hepatitis B vaccine 1 2003 [id number] [employer] (SKB) complet ed hepatitis A and hepatitis B vaccine DoD Results Combined list of recent chemistry, hematology and other laboratory results from Department of Defense and Veterans Affairs, ranging from 15 months to all on record, depending upon the facility. Order Name Results Value Reference Range Date Interpretation Specimen Comments Source METHADON E PANEL (STL) ETHANOL [MASS/VOLU ME] IN URINE Negative mg/dL 0 - 20 03/30 Specimen Type: URINE Comment: The cut-off value for this test was laboratory developed and its performance characteris tics confirmed by the [facility] laboratory thru method comparison with reference laboratory and medication chart review. The laboratory is regulated under CLIA as qualified to perform high-comple xity testing. This test is used for clinical purposes in conjunction with other laboratory tests. Ordering Provider: OSBALDO NGO Report Released Date/Time: March 30, 2024 11:53 AM Reporting Lab: [facility] [id number] Performing Lab: [facility] [id number] [place] [address] DIVISION METHADON E PANEL (STL) AMPHETAMIN E [PRESENCE] IN URINE BY SCREEN METHOD Negative ng/mL 03/30 Specimen Type: URINE Comment: The cut-off value for this test was laboratory developed and its performance characteris tics confirmed by the [facility] laboratory thru method comparison with reference laboratory and medication chart review. The laboratory is regulated under CLIA as qualified to perform high-comple xity testing. This test is used for clinical purposes in conjunction with other laboratory tests. Ordering Provider: OSBALDO NGO Report Released Date/Time: March 30, 2024 11:53 AM Reporting Lab: [facility] [phone] Performing Lab: [facility] [id number] [place] [address] METHADON E PANEL (STL) BENZOYLECG ONINE [PRESENCE] IN URINE Negative ng/mL 03/30 Specimen Type: URINE Comment: The cut-off value for this test was laboratory developed and its performance characteris tics confirmed by the [facility] laboratory thru method comparison with reference laboratory and medication chart review. The laboratory is regulated under CLIA as qualified to perform high-comple xity testing. This test is used for clinical purposes in conjunction with other laboratory tests. Ordering Provider: OSBALDO NGO Report Released Date/Time: March 30, 2024 11:53 AM Reporting Lab: [facility] [address] [place] [address] Performing Lab: [facility] [address] METHADON E PANEL (STL) BENZODIAZE PINES [PRESENCE] IN URINE BY SCREEN METHOD Negative ng/mL 03/30 Specimen Type: URINE Comment: The cut-off value for this test was laboratory developed and its performance characteris tics confirmed by the [facility] laboratory thru method comparison with reference laboratory and medication chart review. The laboratory is regulated under CLIA as qualified to perform high-comple xity testing. This test is used for clinical purposes in conjunction with other laboratory tests. Ordering Provider: OSBALDO NGO Report Released Date/Time: March 30, 2024 11:53 AM Reporting Lab: [facility] [place] [address] Performing Lab: [facility] METHADON E PANEL (STL) CANNABINOI DS [PRESENCE] IN URINE BY SCREEN METHOD 94-POSng /mL 03/30 Specimen Type: URINE Comment: The cut-off value for this test was laboratory developed and its performance characteris tics confirmed by the [facility] laboratory thru method comparison with reference laboratory and medication chart review. The laboratory is regulated under CLIA as qualified to perform high-comple xity testing. This test is used for clinical purposes in conjunction with other laboratory tests. Ordering Provider: OSBALDO NGO Report Released Date/Time: March 30, 2024 11:53 AM Reporting Lab: [facility] [place] [address] Performing Lab: [facility] METHADON E PANEL (STL) METHADONE [PRESENCE] IN URINE Negative ng/mL 03/30 Specimen Type: URINE Comment: The cut-off value for this test was laboratory developed and its performance characteris tics confirmed by the [facility] laboratory thru method comparison with reference laboratory and medication chart review. The laboratory is regulated under CLIA as qualified to perform high-comple xity testing. This test is used for clinical purposes in conjunction with other laboratory tests. Ordering Provider: OSBALDO NGO Report Released Date/Time: March 30, 2024 11:53 AM Reporting Lab: [facility] [place] [address] Performing Lab: [facility] DIVISION METHADON E PANEL (STL) OPIATES [PRESENCE] IN URINE BY SCREEN METHOD Negative ng/mL 03/30 Specimen Type: URINE Comment: The cut-off value for this test was laboratory developed and its performance characteris tics confirmed by the [facility] laboratory thru method comparison with reference laboratory and medication chart review. The laboratory is regulated under CLIA as qualified to perform high-comple xity testing. This test is used for clinical purposes in conjunction with other laboratory tests. Ordering Provider: OSBALDO NGO Report Released Date/Time: March 30, 2024 11:53 AM Reporting Lab: [facility] [place] [address] Performing Lab: [facility] [place] [address] [place] [address] METHADON E PANEL (STL) CREATININE [MASS/VOLU ME] IN URINE 108.2 mg/dL 63.0 - 166.0 03/30 Specimen Type: URINE Comment: The cut-off value for this test was laboratory developed and its performance characteris tics confirmed by the [facility] laboratory thru method comparison with reference laboratory and medication chart review. The laboratory is regulated under CLIA as qualified to perform high-comple xity testing. This test is used for clinical purposes in conjunction with other laboratory tests. Ordering Provider: OSBALDO NGO Report Released Date/Time: March 30, 2024 11:53 AM Reporting Lab: [facility] [place] [address] Performing Lab: [address] METHADON E PANEL (STL) OXYCODONE CUTOFF [MASS/VOLU ME] IN URINE FOR SCREEN METHOD Negative ng/mL 03/30 Specimen Type: URINE Comment: The cut-off value for this test was laboratory developed and its performance characteris tics confirmed by the [facility] laboratory thru method comparison with reference laboratory and medication chart review. The laboratory is regulated under CLIA as qualified to perform high-comple xity testing. This test is used for clinical purposes in conjunction with other laboratory tests. Ordering Provider: OSBALDO NGO Report Released Date/Time: March 30, 2024 11:53 AM Reporting Lab: [facility] [place] [address] Performing Lab: [facility] [address] DIVISION METHADON E PANEL (STL) BUPRENORPH INE [PRESENCE] IN URINE Negative ng/mL 03/30 Specimen Type: URINE Comment: The cut-off value for this test was laboratory developed and its performance characteris tics confirmed by the [facility] laboratory thru method comparison with reference laboratory and medication chart review. The laboratory is regulated under CLIA as qualified to perform high-comple xity testing. This test is used for clinical purposes in conjunction with other laboratory tests. Ordering Provider: OSBALDO NGO Report Released Date/Time: March 30, 2024 11:53 AM Reporting Lab: [facility] [place] [address] Performing Lab: [facility] METHADON E PANEL (STL) FENTANYL [PRESENCE] IN URINE Negative ng/mL 03/30 Specimen Type: URINE Comment: The cut-off value for this test was laboratory developed and its performance characteris tics confirmed by the [facility] laboratory thru method comparison with reference laboratory and medication chart review. The laboratory is regulated under CLIA as qualified to perform high-comple xity testing. This test is used for clinical purposes in conjunction with other laboratory tests. Ordering Provider: OSBALDO NGO Report Released Date/Time: March 30, 2024 11:53 AM Reporting Lab: [facility] [place] [address] Performing Lab: [facility] TSH (MA-PB) THYROTROPI N [UNITS/VOL UME] IN SERUM OR PLASMA 1.066 u[IU]/mL 0.470 - 5.000 03/30 Specimen Type: SERUM No comment entered. Ordering Provider: OSBALDO NGO Report Released Date/Time: March 30, 2024 11:54 AM Reporting Lab: [facility] [place] [address] Performing Lab: [facility] HGA1C HEMOGLOBIN A1C/HEMOGL OBIN.TOTAL IN BLOOD 4.8 4.0 - 6.0 03/30 Specimen Type: BLOOD No comment entered. Ordering Provider: OSBALDO NGO Report Released Date/Time: March 30, 2024 11:54 AM Reporting Lab: [facility] [place] [address] Performing Lab: [facility] [id number] DIVISION COMPREHE NSIVE METABOLI C PANEL CREATININE [MASS/VOLU ME] IN SERUM OR PLASMA 0.78 mg/dL 0.70 - 1.30 03/30 Specimen Type: PLASMA Comment: No hemolysis noted. Ordering Provider: OSBALDO NGO Report Released Date/Time: March 30, 2024 11:54 AM Reporting Lab: [facility] [place] [address] Performing Lab: [facility] DIVISION COMPREHE NSIVE METABOLI C PANEL UREA NITROGEN [MASS/VOLU ME] IN SERUM OR PLASMA 7.5 mg/dL 9.0 - 25.0 03/30 L Specimen Type: PLASMA Comment: No hemolysis noted. Ordering Provider: OSBALDO NGO Report Released Date/Time: March 30, 2024 11:54 AM Reporting Lab: [facility] [place] [address] Performing Lab: [facility] DIVISION COMPREHE NSIVE METABOLI C PANEL GLUCOSE [MASS/VOLU ME] IN SERUM OR PLASMA 104 mg/dL 72 - 99 03/30 H Specimen Type: PLASMA Comment: No hemolysis noted. Ordering Provider: OSBALDO NGO Report Released Date/Time: March 30, 2024 11:54 AM Reporting Lab: [facility] [place] [address] Performing Lab: [facility] DIVISION COMPREHE NSIVE METABOLI C PANEL SODIUM [MOLES/VOL UME] IN SERUM OR PLASMA 139 meq/L 136 - 145 03/30 Specimen Type: PLASMA Comment: No hemolysis noted. Ordering Provider: OSBALDO NGO Report Released Date/Time: March 30, 2024 11:54 AM Reporting Lab: [facility] [place] [address] Performing Lab: [facility] DIVISION COMPREHE NSIVE METABOLI C PANEL POTASSIUM [MOLES/VOL UME] IN SERUM OR PLASMA 3.8 meq/L 3.5 - 5.0 03/30 Specimen Type: PLASMA Comment: No hemolysis noted. Ordering Provider: OSBALDO NGO Report Released Date/Time: March 30, 2024 11:54 AM Reporting Lab: [facility] [place] [address] Performing Lab: [facility] DIVISION COMPREHE NSIVE METABOLI C PANEL CHLORIDE [MOLES/VOL UME] IN SERUM OR PLASMA 103 meq/L 98 - 107 03/30 Specimen Type: PLASMA Comment: No hemolysis noted. Ordering Provider: OSBALDO NGO Report Released Date/Time: March 30, 2024 11:54 AM Reporting Lab: [facility] [place] [address] Performing Lab: [facility] DIVISION COMPREHE NSIVE METABOLI C PANEL CARBON DIOXIDE, TOTAL [MOLES/VOL UME] IN SERUM OR PLASMA 27 meq/L 22 - 31 03/30 Specimen Type: PLASMA Comment: No hemolysis noted. Ordering Provider: OSBALDO NGO Report Released Date/Time: March 30, 2024 11:54 AM Reporting Lab: [facility] DIVISION [facility] [place] [address] Performing Lab: [facility] DIVISION COMPREHE NSIVE METABOLI C PANEL CALCIUM [MASS/VOLU ME] IN SERUM OR PLASMA 9.5 mg/dL 8.4 - 10.4 03/30 Specimen Type: PLASMA Comment: No hemolysis noted. Ordering Provider: [employer] Report Released Date/Time: March 30, 2024 11:54 AM Reporting Lab: [facility] [place] [address] Performing Lab: [facility] DIVISION COMPREHE NSIVE METABOLI C PANEL PROTEIN [MASS/VOLU ME] IN SERUM OR PLASMA 6.9 g/dL 6.0 - 8.6 03/30 Specimen Type: PLASMA Comment: No hemolysis noted. Ordering Provider: [employer] Report Released Date/Time: March 30, 2024 11:54 AM Reporting Lab: [facility] [place] [address] Performing Lab: [facility] DIVISION COMPREHE NSIVE METABOLI C PANEL ALBUMIN [MASS/VOLU ME] IN SERUM OR PLASMA 4.3 g/dL 3.4 - 5.0 03/30 Specimen Type: PLASMA Comment: No hemolysis noted. Ordering Provider: [employer] Report Released Date/Time: March 30, 2024 11:54 AM Reporting Lab: [facility] [place] [address] Performing Lab: [facility] DIVISION COMPREHE NSIVE METABOLI C PANEL BILIRUBIN. TOTAL [MASS/VOLU ME] IN SERUM OR PLASMA 0.6 mg/dL 0.2 - 1.2 03/30 Specimen Type: PLASMA Comment: No hemolysis noted. Ordering Provider: [employer] Report Released Date/Time: March 30, 2024 11:54 AM Reporting Lab: [facility] [place] [address] Performing Lab: [facility] [id number] [place] [address] DIVISION COMPREHE NSIVE METABOLI C PANEL ALKALINE PHOSPHATAS E [ENZYMATIC ACTIVITY/V OLUME] IN SERUM OR PLASMA 57 U/L 40 - 150 03/30 Specimen Type: PLASMA Comment: No hemolysis noted. Ordering Provider: [employer] Report Released Date/Time: March 30, 2024 11:54 AM Reporting Lab: [facility] [place] [address] Performing Lab: [facility] DIVISION COMPREHE NSIVE METABOLI C PANEL ASPARTATE AMINOTRANS FERASE [ENZYMATIC ACTIVITY/V OLUME] IN SERUM OR PLASMA 31 U/L 5 - 34 03/30 Specimen Type: PLASMA Comment: No hemolysis noted. Ordering Provider: [employer] Report Released Date/Time: March 30, 2024 11:54 AM Reporting Lab: [facility] [place] [address] Performing Lab: [facility] DIVISION COMPREHE NSIVE METABOLI C PANEL ALANINE AMINOTRANS FERASE [ENZYMATIC ACTIVITY/V OLUME] IN SERUM OR PLASMA 24 U/L 8 - 40 03/30 Specimen Type: PLASMA Comment: No hemolysis noted. Ordering Provider: [employer] Report Released Date/Time: March 30, 2024 11:54 AM Reporting Lab: [facility] [place] [address] Performing Lab: [facility] DIVISION COMPREHE NSIVE METABOLI C PANEL GLOMERULAR FILTRATION RATE/1.73 SQ M.PREDICTE D [VOLUME RATE/AREA] IN SERUM, PLASMA OR BLOOD BY CREATININE -BASED FORMULA (CKD-EPI 2020) 114.19 60 03/30 Specimen Type: PLASMA Comment: No hemolysis noted. Ordering Provider: [employer] Report Released Date/Time: March 30, 2024 11:54 AM Reporting Lab: [facility] [place] [address] Performing Lab: [facility] DIVISION CBC LEUKOCYTES [#/VOLUME] IN BLOOD BY AUTOMATED COUNT 7.1 10*3/uL 3.6 - 11.2 03/30 Specimen Type: BLOOD No comment entered. Ordering Provider: [employer] Report Released Date/Time: March 30, 2024 11:54 AM Reporting Lab: [facility] [place] [address] Performing Lab: [facility] DIVISION CBC ERYTHROCYT ES [#/VOLUME] IN BLOOD BY AUTOMATED COUNT 4.14 10*6/uL 4.10 - 5.70 03/30 Specimen Type: BLOOD No comment entered. Ordering Provider: [employer] Report Released Date/Time: March 30, 2024 11:54 AM Reporting Lab: [facility] [place] [address] Performing Lab: [facility] DIVISION CBC HEMOGLOBIN [MASS/VOLU ME] IN BLOOD 13.6 g/dL 13.1 - 16.8 03/30 Specimen Type: BLOOD No comment entered. Ordering Provider: [employer] Report Released Date/Time: March 30, 2024 11:54 AM Reporting Lab: [facility] [place] [address] Performing Lab: [facility] DIVISION CBC HEMATOCRIT [VOLUME FRACTION] OF BLOOD 38.0 38.2 - 48.4 03/30 L Specimen Type: BLOOD No comment entered. Ordering Provider: [employer] Report Released Date/Time: March 30, 2024 11:54 AM Reporting Lab: [facility] [place] [address] Performing Lab: [facility] [address] DIVISION CBC MCV [ENTITIC VOLUME] BY AUTOMATED COUNT 91.8 fL 80.0 - 100.0 03/30 Specimen Type: BLOOD No comment entered. Ordering Provider: [employer] Report Released Date/Time: March 30, 2024 11:54 AM Reporting Lab: [facility] [place] [address] Performing Lab: [facility] [address] DIVISION CBC MCH [ENTITIC MASS] BY AUTOMATED COUNT 32.9 pg 27.0 - 34.0 03/30 Specimen Type: BLOOD No comment entered. Ordering Provider: [employer] Report Released Date/Time: March 30, 2024 11:54 AM Reporting Lab: [facility] [place] [address] Performing Lab: [facility] DIVISION CBC MCHC [MASS/VOLU ME] BY AUTOMATED COUNT 35.8 g/dL 33.0 - 36.0 03/30 Specimen Type: BLOOD No comment entered. Ordering Provider: [employer] Report Released Date/Time: March 30, 2024 11:54 AM Reporting Lab: [facility] [place] [address] Performing Lab: [facility] [address] DIVISION CBC PLATELETS [#/VOLUME] IN BLOOD BY AUTOMATED COUNT 306 10*3/uL 150 - 400 03/30 Specimen Type: BLOOD No comment entered. Ordering Provider: [employer] Report Released Date/Time: March 30, 2024 11:54 AM Reporting Lab: [facility] [place] [address] Performing Lab: [facility] DIVISION CBC PLATELET MEAN VOLUME [ENTITIC VOLUME] IN BLOOD BY AUTOMATED COUNT 8.8 fL 7.5 - 11.2 03/30 Specimen Type: BLOOD No comment entered. Ordering Provider: [employer] Report Released Date/Time: March 30, 2024 11:54 AM Reporting Lab: [facility] [place] [address] Performing Lab: [facility] DIVISION CBC ERYTHROCYT E DISTRIBUTI ON WIDTH [RATIO] BY AUTOMATED COUNT 11.5 11.8 - 15.1 03/30 L Specimen Type: BLOOD No comment entered. Ordering Provider: [employer] Report Released Date/Time: March 30, 2024 11:54 AM Reporting Lab: [facility] [place] [address] Performing Lab: [facility] DIVISION CBC LYMPHOCYTE S/100 LEUKOCYTES IN BLOOD BY AUTOMATED COUNT 43 03/30 Specimen Type: BLOOD No comment entered. Ordering Provider: [employer] Report Released Date/Time: March 30, 2024 11:54 AM Reporting Lab: [facility] [place] [address] Performing Lab: [facility] DIVISION CBC MONOCYTES/ 100 LEUKOCYTES IN BLOOD BY AUTOMATED COUNT 9 03/30 Specimen Type: BLOOD No comment entered. Ordering Provider: [employer] Report Released Date/Time: March 30, 2024 11:54 AM Reporting Lab: [facility] [place] [address] Performing Lab: [facility] DIVISION CBC NEUTROPHIL S/100 LEUKOCYTES IN BLOOD BY AUTOMATED COUNT 44 03/30 Specimen Type: BLOOD No comment entered. Ordering Provider: [employer] Report Released Date/Time: March 30, 2024 11:54 AM Reporting Lab: [facility] [place] [address] Performing Lab: [facility] DIVISION CBC EOSINOPHIL S/100 LEUKOCYTES IN BLOOD BY AUTOMATED COUNT 4 03/30 Specimen Type: BLOOD No comment entered. Ordering Provider: [employer] Report Released Date/Time: March 30, 2024 11:54 AM Reporting Lab: [facility] [place] [address] Performing Lab: [facility] DIVISION CBC BASOPHILS/ 100 LEUKOCYTES IN BLOOD BY AUTOMATED COUNT 1 03/30 Specimen Type: BLOOD No comment entered. Ordering Provider: [employer] Report Released Date/Time: March 30, 2024 11:54 AM Reporting Lab: [facility] [place] [address] Performing Lab: [facility] DIVISION CBC LYMPHOCYTE S [#/VOLUME] IN BLOOD BY AUTOMATED COUNT 3.01 10*3/uL 0.77 - 4.50 03/30 Specimen Type: BLOOD No comment entered. Ordering Provider: [employer] Report Released Date/Time: March 30, 2024 11:54 AM Reporting Lab: [facility] [place] [address] Performing Lab: [facility] DIVISION CBC MONOCYTES [#/VOLUME] IN BLOOD BY AUTOMATED COUNT 0.63 10*3/uL 0.19 - 0.80 03/30 Specimen Type: BLOOD No comment entered. Ordering Provider: [employer] Report Released Date/Time: March 30, 2024 11:54 AM Reporting Lab: [facility] [place] [address] Performing Lab: [facility] DIVISION CBC NEUTROPHIL S [#/VOLUME] IN BLOOD BY AUTOMATED COUNT 3.08 10*3/uL 2.10 - 8.00 03/30 Specimen Type: BLOOD No comment entered. Ordering Provider: [employer] Report Released Date/Time: March 30, 2024 11:54 AM Reporting Lab: [facility] [place] [address] Performing Lab: [facility] DIVISION CBC EOSINOPHIL S [#/VOLUME] IN BLOOD BY AUTOMATED COUNT 0.26 10*3/uL 0.00 - 0.60 03/30 Specimen Type: BLOOD No comment entered. Ordering Provider: [employer] Report Released Date/Time: March 30, 2024 11:54 AM Reporting Lab: [facility] [place] [address] Performing Lab: [facility] DIVISION CBC BASOPHILS [#/VOLUME] IN BLOOD BY AUTOMATED COUNT 0.07 10*3/uL 0.00 - 0.20 03/30 Specimen Type: BLOOD No comment entered. Ordering Provider: [employer] Report Released Date/Time: March 30, 2024 11:54 AM Reporting Lab: [facility] [address] Performing Lab: [facility] [id number] [place] [address] DIVISION BRAIN NATRIURE TIC PEPTIDE NATRIURETI C PEPTIDE B [MASS/VOLU ME] IN SERUM OR PLASMA 38.5 pg/mL 0 - 100 03/15 Specimen Type: PLASMA No comment entered. Ordering Provider: AMBAR RIVERA Report Released Date/Time: Mar 15, 2024 12:00 PM Reporting Lab: [place] [address] [place] [phone] Performing Lab: [place] [address] [place] [id number] MAGNESIU M MAGNESIUM [MASS/VOLU ME] IN SERUM OR PLASMA 1.7 mg/dL 1.6 - 2.6 03/15 Specimen Type: PLASMA No comment entered. Ordering Provider: CHAD ZAMORA Report Released Date/Time: Mar 15, 2024 02:05 PM Reporting Lab: [place] [address] [facility] [address] Performing Lab: [place] [id number] [place] [address] COVID-19 DIAGNOST IC (FLU/RSV )([facility]) INFLUENZA VIRUS A AG [PRESENCE] IN NASOPHARYN X Negative 03/15 Specimen Type: NASOPHARYNX Comment: Qualitative real-time PCR and RT-PCR to detect viral RNA. A negative result does not preclude infection with the agent(s) tested and should not be used as the sole basis for treatment or other patient management decisions. If negative, but symptoms persist, consider re-testing. Positive results do not rule out bacterial infection or co-infectio n with other viruses. All results must be combined with clinical observation s, patient history, and epidemiolog ical information for final interpretat ion. Ordering Provider: AMBAR RIVERA Report Released Date/Time: Mar 15, 2024 12:00 PM Reporting Lab: [address] [address] Performing Lab: [place] [address] [facility] [address] [facility] COVID-19 DIAGNOST IC (FLU/RSV )([facility]) INFLUENZA B Negative 03/15 Specimen Type: NASOPHARYNX Comment: Qualitative real-time PCR and RT-PCR to detect viral RNA. A negative result does not preclude infection with the agent(s) tested and should not be used as the sole basis for treatment or other patient management decisions. If negative, but symptoms persist, consider re-testing. Positive results do not rule out bacterial infection or co-infectio n with other viruses. All results must be combined with clinical observation s, patient history, and epidemiolog ical information for final interpretat ion. Ordering Provider: AMBAR RIVERA Report Released Date/Time: Mar 15, 2024 12:00 PM Reporting Lab: [place] [address] [place] [phone] Performing Lab: [address] [address] [facility] COVID-19 DIAGNOST IC (FLU/RSV )([facility]) SARS-COV-2 (COVID-19) RNA [PRESENCE] IN RESPIRATOR Y SYSTEM SPECIMEN BY DANIEL WITH PROBE DETECTION Not Detected 03/15 Specimen Type: NASOPHARYNX Comment: Qualitative real-time PCR and RT-PCR to detect viral RNA. A negative result does not preclude infection with the agent(s) tested and should not be used as the sole basis for treatment or other patient management decisions. If negative, but symptoms persist, consider re-testing. Positive results do not rule out bacterial infection or co-infectio n with other viruses. All results must be combined with clinical observation s, patient history, and epidemiolog ical information for final interpretat ion. Ordering Provider: AMBAR RIVERA Report Released Date/Time: Mar 15, 2024 12:00 PM Reporting Lab: [place] [address] [facility] [address] Performing Lab: [address] [address] [facility] COVID-19 DIAGNOST IC (FLU/RSV )([facility]) RSV (Cepheid) NEGATIVE 03/15 Specimen Type: NASOPHARYNX Comment: Qualitative real-time PCR and RT-PCR to detect viral RNA. A negative result does not preclude infection with the agent(s) tested and should not be used as the sole basis for treatment or other patient management decisions. If negative, but symptoms persist, consider re-testing. Positive results do not rule out bacterial infection or co-infectio n with other viruses. All results must be combined with clinical observation s, patient history, and epidemiolog ical information for final interpretat ion. Ordering Provider: AMBAR RIVERA Report Released Date/Time: Mar 15, 2024 12:00 PM Reporting Lab: [address] [address] Performing Lab: [address] [phone] [place] [address] COMPREHE NSIVE METABOLI C PANEL CREATININE [MASS/VOLU ME] IN SERUM OR PLASMA 0.79 mg/dL 0.7 - 1.3 03/15 Specimen Type: PLASMA Comment: No hemolysis noted. Ordering Provider: AMBAR RIVERA Report Released Date/Time: Mar 15, 2024 12:00 PM Reporting Lab: [address] [address] Performing Lab: [address] [address] [facility] COMPREHE NSIVE METABOLI C PANEL UREA NITROGEN [MASS/VOLU ME] IN SERUM OR PLASMA 6.3 mg/dL 9.0 - 25.0 03/15 L Specimen Type: PLASMA Comment: No hemolysis noted. Ordering Provider: AMBAR RIVERA Report Released Date/Time: Mar 15, 2024 12:00 PM Reporting Lab: [facility] [address] [facility] [address] Performing Lab: [facility] [address] [facility] [address] [facility] COMPREHE NSIVE METABOLI C PANEL GLUCOSE [MASS/VOLU ME] IN SERUM OR PLASMA 79 mg/dL 72 - 99 03/15 Specimen Type: PLASMA Comment: No hemolysis noted. Ordering Provider: AMBAR RIVERA Report Released Date/Time: Mar 15, 2024 12:00 PM Reporting Lab: [place] [address] [facility] [address] Performing Lab: [facility] [address] [facility] [address] [facility] COMPREHE NSIVE METABOLI C PANEL SODIUM [MOLES/VOL UME] IN SERUM OR PLASMA 139 meq/L 136 - 145 03/15 Specimen Type: PLASMA Comment: No hemolysis noted. Ordering Provider: AMBAR RIVERA Report Released Date/Time: Mar 15, 2024 12:00 PM Reporting Lab: [facility] [address] [facility] [address] Performing Lab: [facility] [address] [facility] [address] [facility] COMPREHE NSIVE METABOLI C PANEL POTASSIUM [MOLES/VOL UME] IN SERUM OR PLASMA 3.3 meq/L 3.5 - 5 03/15 L Specimen Type: PLASMA Comment: No hemolysis noted. Ordering Provider: AMBAR RIVERA Report Released Date/Time: Mar 15, 2024 12:00 PM Reporting Lab: [facility] [address] [facility] [address] Performing Lab: [facility] [address] [facility] [address] [facility] COMPREHE NSIVE METABOLI C PANEL CHLORIDE [MOLES/VOL UME] IN SERUM OR PLASMA 103 meq/L 98 - 107 03/15 Specimen Type: PLASMA Comment: No hemolysis noted. Ordering Provider: AMBAR RIVERA Report Released Date/Time: Mar 15, 2024 12:00 PM Reporting Lab: [facility] [address] [facility] [address] Performing Lab: [place] [address] [facility] [address] [facility] COMPREHE NSIVE METABOLI C PANEL CARBON DIOXIDE, TOTAL [MOLES/VOL UME] IN SERUM OR PLASMA 28 meq/L 22 - 31 03/15 Specimen Type: PLASMA Comment: No hemolysis noted. Ordering Provider: AMBAR RIVERA Report Released Date/Time: Mar 15, 2024 12:00 PM Reporting Lab: [place] [address] [facility] [address] Performing Lab: [place] [address] [facility] [address] [facility] COMPREHE NSIVE METABOLI C PANEL CALCIUM [MASS/VOLU ME] IN SERUM OR PLASMA 9.0 mg/dL 8.4 - 10.4 03/15 Specimen Type: PLASMA Comment: No hemolysis noted. Ordering Provider: AMBAR RIVERA Report Released Date/Time: Mar 15, 2024 12:00 PM Reporting Lab: [address] [address] Performing Lab: [place] [address] [facility] [address] [facility] COMPREHE NSIVE METABOLI C PANEL PROTEIN [MASS/VOLU ME] IN SERUM OR PLASMA 6.6 g/dL 6 - 8.6 03/15 Specimen Type: PLASMA Comment: No hemolysis noted. Ordering Provider: AMBAR RIVERA Report Released Date/Time: Mar 15, 2024 12:00 PM Reporting Lab: [place] [address] [facility] [address] Performing Lab: [facility] [address] [facility] [address] [facility] COMPREHE NSIVE METABOLI C PANEL ALBUMIN [MASS/VOLU ME] IN SERUM OR PLASMA 3.9 g/dL 3.4 - 5 03/15 Specimen Type: PLASMA Comment: No hemolysis noted. Ordering Provider: AMBAR RIVERA Report Released Date/Time: Mar 15, 2024 12:00 PM Reporting Lab: [place] [address] [facility] [address] Performing Lab: [place] [address] [facility] [address] [facility] COMPREHE NSIVE METABOLI C PANEL BILIRUBIN. TOTAL [MASS/VOLU ME] IN SERUM OR PLASMA 0.4 mg/dL 0.2 - 1.2 03/15 Specimen Type: PLASMA Comment: No hemolysis noted. Ordering Provider: AMBAR RIVERA Report Released Date/Time: Mar 15, 2024 12:00 PM Reporting Lab: [place] [address] [address] [facility] [address] Performing Lab: [place] [address] [facility] [address] [facility] COMPREHE NSIVE METABOLI C PANEL ALKALINE PHOSPHATAS E [ENZYMATIC ACTIVITY/V OLUME] IN SERUM OR PLASMA 54 U/L 40 - 150 03/15 Specimen Type: PLASMA Comment: No hemolysis noted. Ordering Provider: AMBAR RIVERA Report Released Date/Time: Mar 15, 2024 12:00 PM Reporting Lab: [place] [address] [facility] [address] Performing Lab: [place] [address] [facility] [address] [facility] COMPREHE NSIVE METABOLI C PANEL ASPARTATE AMINOTRANS FERASE [ENZYMATIC ACTIVITY/V OLUME] IN SERUM OR PLASMA 53 U/L 5 - 34 03/15 H Specimen Type: PLASMA Comment: No hemolysis noted. Ordering Provider: AMBAR RIVERA Report Released Date/Time: Mar 15, 2024 12:00 PM Reporting Lab: [address] [address] Performing Lab: [place] [address] [facility] [address] [facility] COMPREHE NSIVE METABOLI C PANEL ALANINE AMINOTRANS FERASE [ENZYMATIC ACTIVITY/V OLUME] IN SERUM OR PLASMA 37 U/L 8 - 40 03/15 Specimen Type: PLASMA Comment: No hemolysis noted. Ordering Provider: AMBAR RIVERA Report Released Date/Time: Mar 15, 2024 12:00 PM Reporting Lab: [place] [id number] Performing Lab: [place] [address] [place] [phone] [place] [address] COMPREHE NSIVE METABOLI C PANEL GLOMERULAR FILTRATION RATE/1.73 SQ M.PREDICTE D [VOLUME RATE/AREA] IN SERUM, PLASMA OR BLOOD BY CREATININE -BASED FORMULA (CKD-EPI 2020) 113.8 60 03/15 Specimen Type: PLASMA Comment: No hemolysis noted. Ordering Provider: AMBAR RIVERA Report Released Date/Time: Mar 15, 2024 12:00 PM Reporting Lab: [address] [address] Performing Lab: [place] [address] [place] [phone] [place] [address] CBC LEUKOCYTES [#/VOLUME] IN BLOOD BY AUTOMATED COUNT 6.4 10*3/uL 3.6 - 11.2 03/15 Specimen Type: BLOOD No comment entered. Ordering Provider: AMBAR RIVERA Report Released Date/Time: Mar 15, 2024 12:00 PM Reporting Lab: [address] [address] Performing Lab: [place] [address] [facility] [address] [facility] CBC ERYTHROCYT ES [#/VOLUME] IN BLOOD BY AUTOMATED COUNT 3.86 10*6/uL 4.10 - 5.70 03/15 L Specimen Type: BLOOD No comment entered. Ordering Provider: AMBAR RIVERA Report Released Date/Time: Mar 15, 2024 12:00 PM Reporting Lab: [address] [address] Performing Lab: [address] [phone] CBC HEMOGLOBIN [MASS/VOLU ME] IN BLOOD 12.6 g/dL 13.1 - 16.8 03/15 L Specimen Type: BLOOD No comment entered. Ordering Provider: AMBAR RIVERA Report Released Date/Time: Mar 15, 2024 12:00 PM Reporting Lab: [address] [address] Performing Lab: [address] [phone] [place] [address] CBC HEMATOCRIT [VOLUME FRACTION] OF BLOOD 38.1 38.2 - 48.4 03/15 L Specimen Type: BLOOD No comment entered. Ordering Provider: AMBAR RIVERA Report Released Date/Time: Mar 15, 2024 12:00 PM Reporting Lab: [address] [address] Performing Lab: [address] [address] [facility] CBC MCV [ENTITIC VOLUME] BY AUTOMATED COUNT 98.7 fL 80.0 - 100.0 03/15 Specimen Type: BLOOD No comment entered. Ordering Provider: AMBAR RIVERA Report Released Date/Time: Mar 15, 2024 12:00 PM Reporting Lab: [address] [address] Performing Lab: [address] [address] [facility] CBC MCH [ENTITIC MASS] BY AUTOMATED COUNT 32.6 pg 27.0 - 34.0 03/15 Specimen Type: BLOOD No comment entered. Ordering Provider: AMBAR RIVERA Report Released Date/Time: Mar 15, 2024 12:00 PM Reporting Lab: [address] [address] Performing Lab: [address] [address] [facility] CBC MCHC [MASS/VOLU ME] BY AUTOMATED COUNT 33.1 g/dL 33.0 - 36.0 03/15 Specimen Type: BLOOD No comment entered. Ordering Provider: AMBAR RIVERA Report Released Date/Time: Mar 15, 2024 12:00 PM Reporting Lab: [address] [address] Performing Lab: [address] [address] [facility] CBC PLATELETS [#/VOLUME] IN BLOOD BY AUTOMATED COUNT 277 10*3/uL 150 - 400 03/15 Specimen Type: BLOOD No comment entered. Ordering Provider: AMBAR RIVERA Report Released Date/Time: Mar 15, 2024 12:00 PM Reporting Lab: [address] [address] Performing Lab: [address] [address] [facility] CBC PLATELET MEAN VOLUME [ENTITIC VOLUME] IN BLOOD BY AUTOMATED COUNT 9.0 fL 7.5 - 11.2 03/15 Specimen Type: BLOOD No comment entered. Ordering Provider: AMBAR RIVERA Report Released Date/Time: Mar 15, 2024 12:00 PM Reporting Lab: [address] [address] Performing Lab: [place] [address] [facility] [address] [facility] CBC ERYTHROCYT E DISTRIBUTI ON WIDTH [RATIO] BY AUTOMATED COUNT 11.9 11.8 - 15.1 03/15 Specimen Type: BLOOD No comment entered. Ordering Provider: AMBAR RIVERA Report Released Date/Time: Mar 15, 2024 12:00 PM Reporting Lab: [facility] [address] [facility] [address] Performing Lab: [facility] [address] [facility] [phone] [facility] CBC LYMPHOCYTE S/100 LEUKOCYTES IN BLOOD BY AUTOMATED COUNT 37 03/15 Specimen Type: BLOOD No comment entered. Ordering Provider: AMBAR RIVERA Report Released Date/Time: Mar 15, 2024 12:00 PM Reporting Lab: [facility] [address] [facility] [phone] Performing Lab: [facility] [address] [facility] [address] [facility] CBC MONOCYTES/ 100 LEUKOCYTES IN BLOOD BY AUTOMATED COUNT 13 03/15 Specimen Type: BLOOD No comment entered. Ordering Provider: AMBAR RIVERA Report Released Date/Time: Mar 15, 2024 12:00 PM Reporting Lab: [facility] [address] [address] Performing Lab: [facility] [address] [address] [facility] CBC NEUTROPHIL S/100 LEUKOCYTES IN BLOOD BY AUTOMATED COUNT 44 03/15 Specimen Type: BLOOD No comment entered. Ordering Provider: AMBAR RIVERA Report Released Date/Time: Mar 15, 2024 12:00 PM Reporting Lab: [facility] [address] [facility] [address] Performing Lab: [facility] [address] [address] [facility] CBC EOSINOPHIL S/100 LEUKOCYTES IN BLOOD BY AUTOMATED COUNT 5 03/15 Specimen Type: BLOOD No comment entered. Ordering Provider: AMBAR RIVERA Report Released Date/Time: Mar 15, 2024 12:00 PM Reporting Lab: [address] [address] Performing Lab: [address] [address] [facility] CBC BASOPHILS/ 100 LEUKOCYTES IN BLOOD BY AUTOMATED COUNT 1 03/15 Specimen Type: BLOOD No comment entered. Ordering Provider: AMBAR RIVERA Report Released Date/Time: Mar 15, 2024 12:00 PM Reporting Lab: [address] [address] Performing Lab: [address] [address] [facility] CBC LYMPHOCYTE S [#/VOLUME] IN BLOOD BY AUTOMATED COUNT 2.32 10*3/uL 0.77 - 4.50 03/15 Specimen Type: BLOOD No comment entered. Ordering Provider: AMBAR RIVERA Report Released Date/Time: Mar 15, 2024 12:00 PM Reporting Lab: [address] [address] Performing Lab: [address] [address] [facility] CBC MONOCYTES [#/VOLUME] IN BLOOD BY AUTOMATED COUNT 0.82 10*3/uL 0.19 - 0.80 03/15 H Specimen Type: BLOOD No comment entered. Ordering Provider: AMBAR RIVERA Report Released Date/Time: Mar 15, 2024 12:00 PM Reporting Lab: [address] [address] Performing Lab: [address] [address] [facility] CBC NEUTROPHIL S [#/VOLUME] IN BLOOD BY AUTOMATED COUNT 2.82 10*3/uL 2.10 - 8.00 03/15 Specimen Type: BLOOD No comment entered. Ordering Provider: AMBAR RIVERA Report Released Date/Time: Mar 15, 2024 12:00 PM Reporting Lab: [address] [address] Performing Lab: [address] [phone] [address] CBC EOSINOPHIL S [#/VOLUME] IN BLOOD BY AUTOMATED COUNT 0.29 10*3/uL 0.00 - 0.60 03/15 Specimen Type: BLOOD No comment entered. Ordering Provider: AMBAR RIVERA Report Released Date/Time: Mar 15, 2024 12:00 PM Reporting Lab: [address] [address] Performing Lab: [address] [phone] [address] CBC BASOPHILS [#/VOLUME] IN BLOOD BY AUTOMATED COUNT 0.09 10*3/uL 0.00 - 0.20 03/15 Specimen Type: BLOOD No comment entered. 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 Vital Sign Value Date Comments Source SYSTOLIC BLOOD PRESSURE 125 09/28/2024 11:47:45 [facility] DIASTOLIC BLOOD PRESSURE 88 09/28/2024 11:47:45 [facility] PULSE OXIMETRY 100 09/28/2024 11:47:45 [facility] WEIGHT 163 09/28/2024 11:47:45 [facility] BMI 23kg/m2 09/28/2024 11:47:45 [facility] PAIN 6 09/28/2024 11:47:45 [facility] HEIGHT 71 09/28/2024 11:47:45 [facility] TEMPERATURE 97.9 09/28/2024 11:47:45 [facility] PULSE 122 09/28/2024 11:47:45 [facility] RESPIRATION 16 09/28/2024 11:47:45 [facility] SYSTOLIC BLOOD PRESSURE 134 05/31/2024 13:28:15 [facility] DIASTOLIC BLOOD PRESSURE 87 05/31/2024 13:28:15 [facility] PULSE OXIMETRY 98 05/31/2024 13:28:15 [facility] WEIGHT 167.9 05/31/2024 13:28:15 [facility] BMI 23kg/m2 05/31/2024 13:28:15 [facility] PAIN 3 05/31/2024 13:28:15 [facility] HEIGHT 71 05/31/2024 13:28:15 [facility] TEMPERATURE 97.4 05/31/2024 13:28:15 [facility] PULSE 97 05/31/2024 13:28:15 [facility] RESPIRATION 18 05/31/2024 13:28:15 [facility] SYSTOLIC BLOOD PRESSURE 128 03/30/2024 11:23:25 [facility] DIASTOLIC BLOOD PRESSURE 88 03/30/2024 11:23:25 [facility] PULSE OXIMETRY 99 03/30/2024 11:23:[address] [facility] WEIGHT 172.6 03/30/2024 11:23:25 [facility] BMI 24kg/m2 03/30/2024 11:23:25 [facility] PAIN 6 03/30/2024 11:23:25 [facility] TEMPERATURE 98 03/30/2024 11:23:25 [facility] PULSE 89 03/30/2024 11:23:25 [facility] RESPIRATION 16 03/30/2024 11:23:25 [facility] SYSTOLIC BLOOD PRESSURE 135 03/15/2024 11:56:00 [facility] DIASTOLIC BLOOD PRESSURE 87 03/15/2024 11:56:00 [facility] PAIN 7 03/15/2024 11:56:00 [facility] PULSE 89 03/15/2024 11:56:00 [facility] RESPIRATION 18 03/15/2024 11:56:00 [facility] Encounters Combined list of: 1) Encounters from Department of [facility] facilities going back up to thelast 18 months. 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 Location Location Details Encounter Type Encounter Number Reason For Visit Attending Provider ADM Date DC Date Status Disposition Source [place]) OUTPATIENT [id number] ARCHES AND KNEE PAIN/CO LD DACIA MOYA 12/06 Released with Work/[place]uty Limitations [place] OUTPATIENT [id number] X-RAY RESULTS DACIA MOYA 12/07 Released with Work/Duty Limitations [place]) [place]) OUTPATIENT [id number] back pain/bl ENRIQUE Garcia 01/17 Released with Work/Duty Limitations [place]) [facility] Facility OUTPATIENT [id number] 01/02 Released w/o Limitations [facility] OUTPATIENT [id number] 01/31 Released w/o Limitations [facility] OUTPATIENT [id number] 05/17 Released with Work/Duty Limitations [facility] OUTPATIENT [id number] 05/21 Released w/o Limitations [facility] OUTPATIENT [id number] 06/05 Released w/o Limitations [facility] OUTPATIENT [id number] 06/08 Released w/o Limitations Theater Facilit y [facility] [place]) OUTPATIENT [id number] [facility] PORTIA ELIZALDE 10/31 Released w/o Limitations [facility], [employer] Exam[facility]ion) [facility] [place]) OUTPATIENT [id number] W/I ROLANDA STRAUSS 11/20 Released w/o Limitations [facility] [employer] [place] ) [facility] [place]) OUTPATIENT [id number] [facility] ISABEL Cambpell 05/07 Released w/o Limitations [facility] [employer] [place]) [facility] [place] OUTPATIENT [id number] knee pain CHAI HARRELL 03/14 Released w/o Limitations [facility] [employer] [place]) [facility] [place] OUTPATIENT [id number] L knee pain SHARRI CHAI Nallely 03/21 Released w/o Limitations [facility] [employer] [place]) [facility] [place] Physical Therapy) OUTPATIENT [id number] visit for: adminis trative SOFIE Givens 04/12 Released w/o Limitations [facility] [employer] [place] ) [facility], [place] OUTPATIENT [id number] infecti on near groin area CHAI HARRELL 04/14 Released w/o Limitations [facility], [place]) [facility], [place] OUTPATIENT [id number] Poss. Cyst A Co CHAI HARRELL 04/17 Released w/o Limitations [facility], [place]) [facility], [place] TELE CONSULT [id number] MED FILL CHAI HARRELL 07/14 [facility], [place]) [facility], [place] TELE CONSULT [id number] Needs medicat ion change SANCHO DEUTSCH 08/07 [facility], [place]) [facility] Outpatient Encounter [id number] RENETTA WOO 05/29 [facility] OFFICE O/P EST LOW 20-29 MIN [id number] Diagnos is: ICD-10- CM F10.90 Alcohol use, 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, uncompl icated< br/> KODWANI, CHAVEZ 06/05 [facility] HC PRO PHONE CALL 5-10 MIN [id number] Diagnos is: ICD-10- CM 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
Ce MORROW IMROLANDO WAGNER 06/05 [facility] OFFICE O/P EST MOD 30-39 MIN [id number] Diagnos is: ICD-10- CM F43.11 Post-tr aumatic stress disorde r, acute<b r/> ZACHARY PHAN 06/19 [facility] EYE EXAM NEW PATIENT [id number] Diagnos is: ICD-10- CM H53.71 Glare sensiti vity
CHERI SCHROEDER THI 06/19 [facility] HC PRO PHONE CALL 5-10 MIN [id number] Diagnos is: ICD-10- CM Z59.811 Housing instabi lity, housed, with risk of homeles sness<b r/> Ce MORROW IMEE BERNARD 06/19 [facility] EMERGENCY DEPT VISIT LOW MDM [id number] [id number] Diagnos is: ICD-10- CM M79.10 Myalgia , 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 site
CHRISTINA TUTTLE ED K 06/30 [facility] Outpatient Encounter [id number] CHRISTINA TUTTLE ED K 06/30 [facility] Outpatient Encounter [id number] DIANNA RAMIREZ 07/11 [facility] EMERGENCY DEPT VISIT MOD MDM [id number] [id number] Diagnos is: ICD-10- CM E87.6 Hypokal emia
GARFIELD RODRIGUEZ 07/13 [facility] Outpatient Encounter [id number] 07/13 [facility] Outpatient Encounter [id number] GARFIELD RODRIGUEZ Bonifacio 07/13 [facility] Outpatient Encounter [id number] CHILORENETTA Candice 07/28 [facility] OFFICE O/P EST LOW 20-29 MIN [id number] Diagnos is: ICD-10- CM R52 Pain, 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
SHAHEEN NGO CHAVEZ 08/04 [facility] Outpatient Encounter [id number] 08/12 [facility] Outpatient Encounter [id number] Bonifacio QUEZADA 09/23 [facility] EMERGENCY DEPT VISIT LOW MDM [id number] [id number] Diagnos is: ICD-10- CM E87.6 Hypokal emia
LINO ZAMORA 03/15 [facility] Outpatient Encounter [id number] 03/15 [facility] Outpatient Encounter [id number] LINO ZAMORA 03/15 [facility] Outpatient Encounter [id number] 03/17 [facility] OFFICE O/P EST MOD 30 MIN [id number] Diagnos is: ICD-10- CM R52 Pain, 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
KODWATANESHA, CHAVEZ 03/30 [facility] NRV CNDJ TEST 9-10 STUDIES [id number] Diagnos is: ICD-10- CM G56.03 Carpal tunnel syndrom e, bilater al upper limbs<b r/> LESLIE,THAI 04/19 [facility] Outpatient Encounter [id number] 04/19 [facility] Outpatient Encounter [id number] Bonifacio QUEZADA 04/20 [facility] PSYTX W PT 45 MINUTES [id number] [id number] Diagnos is: ICD-10- CM F43.11 Post-tr aumatic stress disorde r, acute<b r/> ZACHARY PHAN 04/27 [facility] Outpatient Encounter [id number] 04/27 [facility] OFFICE O/P EST MOD 30 MIN [id number] Diagnos is: ICD-10- CM R52 Pain, 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
KODWATANESHA, CHAVEZ 04/28 [facility] Outpatient Encounter [id number] 04/28 [facility] Outpatient Encounter [id number] 04/28 [facility] Outpatient Encounter [id number] Diagnos is: ICD-10- CM R52 Pain, 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
SHAHEEN NGO CHAVEZ 05/14 [facility] OFF/OP CNSLTJ NEW/EST LOW 30 [id number] Diagnos is: ICD-10- CM G56.03 Carpal tunnel syndrom e, bilater al upper limbs<b r/> ELINOR ROSE A 05/31 [facility] OT EVAL MOD COMPLEX 45 MIN [id number] [id number] Diagnos is: ICD-10- CM G56.03 Carpal tunnel syndrom e, bilater al upper limbs<b r/> TOÑO HERNANDEZ K 05/31 [facility] Outpatient Encounter [id number] 07/03 [facility] OFFICE O/P EST HI 40 MIN [id number] Diagnos is: ICD-10- CM Z72.0 Tobacco use<br/ > MARIANO OSULLIVAN A 07/05 [facility] Outpatient Encounter [id number] 07/05 [facility] PRO PHONE CALL 11-20 MIN [id number] [id number] Diagnos is: ICD-10- CM F10.90 Alcohol use, 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, uncompl icated< br/> SHANKAR OWEN 07/06 [facility] Outpatient Encounter [id number] SHANKAR OWEN 07/06 [facility] ALCOHOL AND/OR DRUG ASSESS [id number] Diagnos is: ICD-10- CM F10.90 Alcohol use, 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, uncompl icated< br/> ANTHONY MITTAL JORGE 07/13 [facility] OFF/OP EST MAY X REQ PHY/QHP [id number] [id number] Diagnos is: ICD-10- CM G56.03 Carpal tunnel syndrom e, bilater al upper limbs<b r/> KWADWO ROSS R 08/03 [facility] Outpatient Encounter [id number] LAURA CANDELARIA A 08/05 [facility] OFFICE O/P EST MOD 30 MIN [id number] Diagnos is: ICD-10- CM F32.89 Other specifi ed depress migdalia episode s
HENNA GarciaMARIANO A 08/06 [facility] OFFICE O/P EST MOD 30 MIN [id number] Diagnos is: ICD-10- CM R03.0 Elevate d blood-p ressure reading , w/o diagnos is of htn<br/ > KODWANI, CHAVEZ 08/18 [facility] Outpatient Encounter [id number] 08/18 [facility] OFFICE O/P EST MOD 30 MIN [id number] Diagnos is: ICD-10- CM F32.89 Other specifi ed depress migdalia episode s
MARIANO OSULLIVAN Ce 09/06 [facility] OFF/OP CNSLTJ NEW/EST LOW 30 [id number] Diagnos is: ICD-10- CM G56.03 Carpal tunnel syndrom e, bilater al upper limbs<b r/> SUZANNEVIKTORIYA BROUSSARD ESH 09/28 [facility] Outpatient Encounter [id number] 09/28 [facility] Outpatient Encounter [id number] Diagnos is: ICD-10- CM Z01.810 Encount er for preproc edural cardiov ascular examina tion
ROSEHEA THER 10/03 [facility] Outpatient Encounter [id number] Diagnos is: ICD-10- CM Z04.89 Encount er for examina tion and observa tion for oth reasons
Candice BRAGA 10/09 [facility] HC PRO PHONE CALL 5-10 MIN [id number] Diagnos is: ICD-10- CM G56.01 Carpal tunnel syndrom e, right upper limb
NIKUNJ RODRIGUEZ 10/22 [facility] Outpatient Encounter [id number] 10/29 [facility] Outpatient Encounter [id number] SHAHEEN NGO 11/07 [facility] Procedures Combined list of: 1) Procedures from Department of Veterans Affairs facilities going back up to thelast 18 months, not all VA non-surgical procedures are included; 2) All procedures from the Department of Defense facilities. Procedure Procedure Type Code Date Perfomer Comments [place] Psychotherapy Individual Approximately 30 Minutes Psychotherapy Individual Approximately 30 Minutes [id number] 09/11/2009 CHAPIS RODRIGUEZ [facility] Clinical Social Work Individual Outpatient Counseling 45 Minutes Clinical Social Work Individual Outpatient Counseling 45 Minutes 19004 08/21/2009 SIOMARA CASTRO [facility] Clinical Social Work Individual Outpatient Counseling 45 Minutes Clinical Social Work Individual Outpatient Counseling 45 Minutes 36798 07/14/2009 SIOMARA CASTRO [facility] Clinical Social Work Individual Outpatient Counseling 30 Minutes Clinical Social Work Individual Outpatient Counseling 30 Minutes [id number] 06/29/2009 ANDREW MORALES [facility] Physician Supervised Injection Intramuscular Antibiotic Physician Supervised Injection Intramuscular Antibiotic 20752 04/14/2009 MOO BAILON [facility] Phys Therapy Education Self Care Training - Per 15 Minutes Phys Therapy Education Self Care Training - Per 15 Minutes 40429 04/12/2009 SOFIE POSEY [facility] Physical Therapy Service Evaluation Physical Therapy Service Evaluation 54136 04/12/2009 SOFIE POSEY [facility] Screening Test Of Visual Acuity, Quantitative, Bilateral Screening Test Of Visual Acuity, Quantitative, Bilateral 12661 05/07/2007 ISABEL RUBALCAVA [facility] Psychiatric Therapy Preparation of Psychiatric Status Report Psychiatric Therapy Preparation of Psychiatric Status Report [id number] 04/16/2007 RAQUEL GANNON [facility] Psychiatric Diagnostic Evaluation Comprehensive Examination Psychiatric Diagnostic Evaluation Comprehensive Examination 08527 04/16/2007 RAQUEL GANNON [facility] Psychologic Testing And Report Administered By Physician Psychologic Testing And Report Administered By Physician [id number] 04/15/2007 RAQUEL GANNON [facility] Audiometry Group Testing Audiometry Group Testing 27934 11/20/2006 ROLANDA STRAUSS Threshold Audiogram (Pure Tone) Threshold Audiogram (Pure Tone) 62064 11/20/2006 ROLANDA STRAUSS Physician Supervised Group Educational Services 11/20/2006 ROLANDA STRAUSS Special Physician Services Analysis Of Computerized Data Special Physician Services Analysis Of Computerized Data 00386 11/20/2006 ROLANDA STRAUSS HEPATITIS A AND HEPATITIS B VACCINE (HEPA-HEPB), ADULT DOSAGE, FOR INTRAMUSCULAR USE 12/27/2004 [facility] INFLUENZA VIRUS VACCINE, TRIVALENT, LIVE (LAIV3), FOR INTRANASAL USE 10/09/2004 [facility] PHYS/OTH QUALIFIED HEALTH CARDIOVASCULAR SPECIALIST QUALIFIED,EDUCATION, TRAIN,LICENSURE/REGU LATION (WHEN APPLICABLE) EDUC SER RENDERED TO PATS IN A GRP SETTING (EG,,OBESITY ,OR DIABETIC INSTRUCT) 10/04/2004 [facility] SCREENING TEST OF VISUAL ACUITY, QUANTITATIVE, BILATERAL 07/29/2006 [facility] HEPATITIS B VACCINE (HEPB), ADULT DOSAGE, 3 DOSE SCHEDULE, FOR INTRAMUSCULAR USE 10/16/2005 [facility] INFLUENZA VIRUS VACCINE, TRIVALENT (IIV3), SPLIT VIRUS, 0.5 ML DOSAGE, FOR INTRAMUSCULAR USE 09/26/2005 [facility] INDIVIDUAL PSYCHOTHERAPY, INSIGHT ORIENTED, BEHAVIOR MODIFYING AND/OR SUPPORTIVE, IN AN OFFICE OR OUTPATIENT FACILITY, APPROXIMATELY 20 TO 30 MINUTES [id number] WITH THE PATIENT 09/11/2009 [facility] INDIVIDUAL PSYCHOTHERAPY, INSIGHT ORIENTED, BEHAVIOR MODIFYING AND/OR SUPPORTIVE, IN AN OFFICE OR OUTPATIENT FACILITY, APPROXIMATELY 45 TO 50 MINUTES [id number] WITH THE PATIENT 08/21/2009 [facility] INFLUENZA VIRUS VACCINE, TRIVALENT, LIVE (LAIV3), FOR INTRANASAL USE 08/01/2009 [facility] INDIVIDUAL PSYCHOTHERAPY, INSIGHT ORIENTED, BEHAVIOR MODIFYING AND/OR SUPPORTIVE, IN AN OFFICE OR OUTPATIENT FACILITY, APPROXIMATELY 45 TO 50 MINUTES [id number] WITH THE PATIENT 07/14/2009 [facility] INDIVIDUAL PSYCHOTHERAPY, INSIGHT ORIENTED, BEHAVIOR MODIFYING AND/OR SUPPORTIVE, IN AN OFFICE OR OUTPATIENT FACILITY, APPROXIMATELY 20 TO 30 MINUTES [id number] WITH THE PATIENT 06/29/2009 [facility] THERAPEUTIC, PROPHYLACTIC, OR DIAGNOSTIC INJECTION (SPECIFY SUBSTANCE OR DRUG); SUBCUTANEOUS OR INTRAMUSCULAR 04/14/2009 [facility] SELF-CARE/HOME MANAGMENT TRAIN (EG,ACT OF DAILY LIVING (ADL) &COMPENSAT TRAIN,MEAL PREPARATION,SAFETY PROCS,AND INSTRUCT IN USE OF ASST TECHNOLOGY DEV/ADPT EQUIP) DIR ONE-ON-ONE CONT,EA 15 MINUTES 04/12/2009 [facility] INFLUENZA VIRUS VACCINE, TRIVALENT, LIVE (LAIV3), FOR INTRANASAL USE 09/09/2007 [facility] TYPHOID VACCINE, ACETONE-KILLED, DRIED (AKD), FOR SUBCUTANEOUS USE (U.S. ) 07/21/2007 [facility] ANALYSIS OF CLINICAL DATA STORED IN COMPUTERS (EG, ECGS, BLOOD PRESSURES, HEMATOLOGIC DATA) 07/07/2007 [facility] SCREENING TEST OF VISUAL ACUITY, QUANTITATIVE, BILATERAL 05/07/2007 [facility] PREPARATION OF REPORT OF PATIENT'S PSYCHIATRIC STATUS, HISTORY, TREATMENT, OR PROGRESS (OTHER THAN FOR LEGAL OR CONSULTATIVE PURPOSES) FOR OTHER INDIVIDUALS, AGENCIES, OR INSURANCE CARRIERS 04/16/2007 [facility] PSYCHOLOG TESTING (ASSESS EMOTION,INTELLECT ABILITIES,PERSONALIT Y & PSYCHOPATH,EG,MMPI,R ORSCHACH,[place])/HR PSYCHOLOGIST/PHYS TIME,BOTH [id number] ADMIN TEST TO PAT & INTERP TEST RESULT & PREP RPT 04/15/2007 [facility] HEPATITIS A AND HEPATITIS B VACCINE (HEPA-HEPB), ADULT DOSAGE, FOR INTRAMUSCULAR USE 04/07/2007 [facility] ANALYSIS OF CLINICAL DATA STORED IN COMPUTERS (EG, ECGS, BLOOD PRESSURES, HEMATOLOGIC DATA) 11/20/2006 [facility] Social History Combined list of available smoking, tobacco, and other social history from Department of Defense and Veterans Affairs facilities. Social History Type Response Date Comment [facility] e Tobacco smoking status NHIS VA-TOBACCO FORMER USER 08/05/2024 [facility] History of tobacco use VA-TOBACCO QUIT 5 TO < 15 YRS 08/05/2024 [facility] History of tobacco use VA-TOBACCO USER SOME DAYS 06/05/2023 [facility] History of tobacco use ORYX ADMIT TOBACCO SCREEN YES 05/07/2023 [facility] History of tobacco use VA-TOBACCO FORMER USER 04/16/2022 [facility] History of tobacco use VA-TOBACCO USER EVERY DAY 11/14/2020 [facility] History of tobacco use VA-TOBACCO FORMER USER 02/08/2019 [facility] History of tobacco use TOBACCO USER OFFERED MEDS 10/17/2017 [facility] History of tobacco use CURRENT TOBACCO USER 07/02/2017 [facility] History of tobacco use QUIT TOBACCO >12 MO and <7 YRS AGO 02/19/2016 [facility] History of tobacco use CURRENT TOBACCO USER 04/14/2015 [facility] History of tobacco use CURRENT TOBACCO USER 08/25/2014 [facility] History of tobacco use QUIT TOBACCO >7 YEARS AGO 10/27/2013 [facility] History of tobacco use CURRENT TOBACCO USER 01/07/2013 [facility] History of tobacco use QUIT TOBACCO IN THE LAST 12 MONTHS 09/18/2011 [facility] History of tobacco use CURRENT TOBACCO USER 07/25/2011 [facility] History of tobacco use QUIT TOBACCO IN THE LAST 12 MONTHS 07/20/2010 [facility] This section is an empty social history section. [facility] Plan of Care List of future care activities from [facility] facilities. Additional future care activities may be listed in the Assessment and Plan section. Date/Time Care Activity Care Activity Detail Facili ty 11/18/2024 AMBULATORY - MEDICINE AMBULATORY - MEDICI NE [facility] 11/23/2024 AMBULATORY - PSYCHIATRY AMBULATORY - PSYC HIATRY [facility] 11/30/2024 AMBULATORY - SURGERY AMBULATORY - SURGERY [facility] 02/17/2025 AMBULATORY - MEDICINE AMBULATORY - MEDICI NE [facility] 10/03/2024 Laboratory - Home Health Care Worker ry Order CBC BLOOD SP [facility] 10/03/2024 Laboratory - Home Health Care Worker ry Order BASIC METABOLIC PANEL GREEN LI/HEP BLD/PLAS PLASMA SP [facility] Advance Directives List of completed, amended, or rescinded Advance Directives on record at [facility] facilities. An actual copy of the Directive is not included. Date Advance Directive Provider Source 05/07/2023 ADVANCE DIRECTIVE DARLEEN ENRIQUEZ [facility]
--- OUTSIDE RECORDS SUMMARY | 2024-11-14 04:29 | XMS_ITS | Encounter Summary ---
Author Name [facility] [place] Address [address] [place] [address] Care Team Providers Care Backrest Assembler Name Role Phone [employer] Primary Care Provider Unavailabl e Insurance Providers: [...] PRESCRIPT ION RX PLAN Nov 17, 2018 [facility] [id number] [phone] Jose TABARES PATIENT [employer] PRESCRIPT ION EAL Nov 17, 2018 [facility] [id number] [phone] Jose TABARES PATIENT [facility] WHELA N SECUR ITY Nov 17, 2018 [id number] [phone] Jose TABARES PATIENT [facility] WHELA N SECUR ITY Nov 17, 2018 [id number] [phone] [phone] Jose TABARES PATIENT [facility] PREFERRED PROVIDER ORGANIZAT ION (PPO) WHELA N SECUR ITY Nov 17, 2018 [id number] [phone] Jose TABARES PATIENT [facility] PREFERRED PROVIDER ORGANIZAT ION (PPO) JOSE NEGRETE ITY Nov 17, 2018 [id number] [phone] Jose TABARES PATIENT Selected Encounter This section includes the information on record at [place] for the Encounter. Date/Time Encounter Type Encounter Description Reason Pro vider Source Apr 19, 2024 02:04 PM Outpatient Encounter EVENT (HISTORICAL) IHE Encounter Template Text not used by [facility] Plan of Treatment: Future Appointments (+ 6 months) and Future Tests (+/- 45 days) The Plan of Treatment section includes future care activities for the patient from all [place] [facility]. This section includes future appointments and future orders which are active, pending or scheduled. Future Appointments This section includes appointments that were scheduled to occur 6 months from the date of the Encounter, up to a maximum of 20 appointments. The data comes from all [facility]. Appointment Date/Time Appointment Type Appointme nt Facility Name Apr 27, 2024 11:00 AM AMBULATORY - PSYCHIATRY [facility] Apr 28, 2024 01:00 PM AMBULATORY - MEDICINE [facility] May 14, 2024 03:30 PM AMBULATORY - MEDICINE [facility] May 31, 2024 01:30 PM AMBULATORY - SURGERY [facility] Jul 05, 2024 01:30 PM AMBULATORY - PSYCHIATRY [facility] Aug 06, 2024 12:30 PM AMBULATORY - PSYCHIATRY [facility] Aug 18, 2024 11:00 AM AMBULATORY - MEDICINE [facility] Sep 06, 2024 02:30 PM AMBULATORY - PSYCHIATRY [facility] Sep 28, 2024 11:40 AM AMBULATORY - SURGERY [facility] Active, Pending, and Scheduled Orders This section includes a listing of several types of active, pending, and scheduled orders, including clinic medications orders, diagnostic test orders, procedure orders and consult orders; where the start date of the order is 45 days before the date of the Encounter or 45 days after the date of theEncounter. The data comes from all [facility]. Test Date/Time Test Type Test Details Facility Name Mar 15, 2024 12:00 PM Laboratory - Microbiology Order C&S URINE URINE,CLEAN CATCH WC [facility] Lab Results: +/- 30 days [...] Range Comment March 30, 2024 12:07 PM [facility] METHADONE PANEL (STL) Specimen Type: URINE Comment: The cut-off value for this test was laboratory developed and its performance characteristics confirmed by the [facility] laboratory thru method comparison with reference laboratory and medication chart review. The laboratory is regulated under CLIA as qualified to perform high-complexity testing. This test is used for clinical purposes in conjunction with other laboratory tests. Ordering Provider: JOSUE [employer] Report Released Date/Time: March 30, 2024 11:53 AM Reporting Lab: [facility] [facility] [id number] Performing Lab: [facility] [facility] [address] ETHANOL Negative mg/dL 0-20 AMPHET/METHAMPHE TAMINE Negative ng/mL COCAINE METABOLITES Negative ng/mL BENZODIAZEPINES (STL) Negative ng/mL CANNABINOIDS 94-POS ng/mL METHADONE Negative ng/mL OPIATES Negative ng/mL CREATININE URINE/OTHERS 108.2 mg/dL 63.0-166.0 OXYCODONE (BOMAW-NGG-HK) Negative ng/mL BUPRENORPHINE (STL-PB-MA) Negative ng/mL FENTANYL (STL-PB) Negative ng/mL March 30, 2024 12:02 PM [facility] TSH (MA-PB) Specimen Type: SERUM No comment entered. Ordering Provider: JOSUE NGO Report Released Date/Time: March 30, 2024 11:54 AM Reporting Lab: [facility] [facility] [address] Performing Lab: [facility] [address] [facility] [address] TSH 1.066 u[IU]/mL 0.470 -5.00 0 March 30, 2024 12:02 PM [facility] HGA1C Specimen Type: BLOOD No comment entered. Ordering Provider: JOSUE NGO Report Released Date/Time: March 30, 2024 11:54 AM Reporting Lab: [facility] [address] Performing Lab: [facility] [address] [facility] [address] HGA1C 4.8 4.0-6.0 March 30, 2024 12:02 PM [facility] COMPREHENSIVE METABOLIC PANEL Specimen Type: PLASMA Comment: No hemolysis noted. Ordering Provider: JOSUE NGO Report Released Date/Time: March 30, 2024 11:54 AM Reporting Lab: [facility] [address] [facility] [address] Performing Lab: [facility] [address] [facility] [address] CREATININE 0.78 mg/dL 0.70-1.30 UREA NITROGEN 7.5 [...] 114.19 >60 March 30, 2024 12:02 PM [facility] CBC Specimen Type: BLOOD No comment entered. Ordering Provider: JOSUE NGO Report Released Date/Time: March 30, 2024 11:54 AM Reporting Lab: [facility] [address] Performing Lab: [facility] [place] [address] WBC 7.1 10*3/uL 3.6-11.2 RBC 4.14 10*6/uL [...] 10*3/uL 0.00-0.60 BASOPHILS, ABSOLUTE 0.07 10*3/uL 0.00-0.20 Social History: Smoking Status (Most current) and Tobacco Use (All prior to encounter date) This section includes the most current, and the historical, smoking and tobacco- related health factors from the [place] facility where the Encounter took place. Current Smoking Status This section includes the most current smoking, or tobacco-related health factor, from the [place] facility where the Encounter took place. Date/Time Current Smoking Status Comment Facil ity May 07, 2023 06:21 AM [facility] ADMIT TOBACCO SCREEN YES [facility] Tobacco Use History This section includes a history of the smoking, or tobacco-related health factors, that were collected on or before the date of the Encounter. The data comes from the [place] facility where the Encounter took place. Date/Time Smoking Status/Tobacco Use Comment F acility May 07, 2023 06:21 AM ORYX ADMIT TOBACCO USE CIGS LS 5D [facility] May 07, 2023 06:21 AM [facility] DAILY TOBACCO ROLLER INSPECTOR RECEIVED [facility] May 07, 2023 06:21 AM [facility] DAILY TOBACCO MEDS REFUSED [facility] Oct 27, 2013 02:51 PM QUIT TOBACCO >7 YEARS AGO [facility] Jan 07, 2013 10:01 AM CURRENT TOBACCO USER [facility] Jan 07, 2013 10:01 AM TOBACCO MEDS OFFER ED BUT DECLINED [facility] Sep 18, 2011 12:08 PM QUIT TOBACCO IN TH E LAST 12 MONTHS [facility] Jul 25, 2011 03:33 PM CURRENT TOBACCO USER [facility] Jul 20, 2010 10:35 AM QUIT TOBACCO IN TH E LAST 12 MONTHS [facility] Advance Directives: All historical and current Section Date Range: From patient's date of to the date document was created. This section includes ALL of a patient's completed or amended [facility] Advance and Rescinded Directives. The entries below indicate that a directive exists for the patient, but an actual copy is not included with this document. The data comes from all [place] facilities. Date Advance Directives Provider Source May 07, 2023 ADVANCE DIRECTIVE DARLEEN ENRIQUEZ [facility]
--- OUTSIDE RECORDS SUMMARY | 2024-11-14 04:29 | XMS_ITS | Encounter Summary ---
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 Name Role Phone JOSUE SCHILLING Primary Care [...] to Policy Cano OPTUM RX PRESCRIPT ION [facility] Nov 17, 2018 [facility] [id number] [phone] Jose CURRY PATIENT OPTUM RX PRESCRIPT ION RX PLAN Nov 17, 2018 [facility] [id number] [phone] Jose CURRY PATIENT [facility] Jose SECUR ITY Nov 17, 2018 [id number] [phone] Jose CURRY PATIENT [facility] Jose SECUR ITY Nov 17, 2018 [id number] [phone] Jose CURRY PATIENT [facility] PREFERRED PROVIDER ORGANIZAT ION (PPO) JOSE Garcia SECUR ITY Nov 17, 2018 [id number] [phone] Jose CURRY PATIENT [facility] PREFERRED PROVIDER ORGANIZAT ION (PPO) JOSE FRIEDMAN Nov 17, 2018 [id number] [phone] RAYSHAWNJose KILO PATIENT Selected Encounter This section includes the information on record at [place] for the Encounter. Date/Time Encounter Type Encounter Description Reason Provider Source March 30, 2024 11:30 AM OFFICE O/P EST MOD 30 MIN PRIMARY CARE/MEDICINE ICD-10-CM R52 Pain, unspecified JOSUE SCHILLING Tatyana Encounter Template Text not used by [place] Assessments - Encounter Diagnoses This section includes the primary and secondary diagnoses documented for the Encounter. Date/Time Primary/Secondary Diagnosis Diagnosis Name Provider Source April 01, 2024 08:20 AM PRIMARY Pain, unspecified [facility] April 01, 2024 08:20 AM SECONDARY Alcohol use, unspecified with intoxication, uncomplicated [facility] April 01, 2024 08:20 AM SECONDARY Elevated blood-pressure reading, w/o diagnosis of htn [facility] April 01, 2024 08:20 AM SECONDARY Hypokalemia [facility] April 01, 2024 08:20 AM SECONDARY Other specified depressive episodes [facility] April 01, 2024 08:20 AM SECONDARY Tobacco use [facility] Plan of Treatment: Future Appointments (+ 6 months) and Future Tests (+/- 45 days) The Plan of Treatment section includes future care activities for the patient [facility] [place] [facility] This section includes future appointments and future orders which are active, pending or scheduled. Future Appointments This section includes appointments that were scheduled to occur 6 months from the date of the Encounter, up to a maximum of 20 appointments. The data comes from all [place] treatment [facility]. Appointment Date/Time Appointment Type Appointme nt Facility Name Apr 19, 2024 02:00 PM AMBULATORY - NEUROLOGY [facility] Apr 27, 2024 11:00 AM AMB[facility]ORY [facility] PS[facility] Apr 28, 2024 01:00 PM AMBULATORY - MEDICINE [facility] May 14, 2024 03:30 PM AMBULATORY - MEDICINE [facility] May 31, 2024 01:30 PM AMBULATORY - SURGERY [facility] Jul 05, 2024 01:30 PM AMBULATORY - PSYCHIATRY [facility] Aug 06, 2024 12:30 PM AMBULATORY - PSYCHIATRY [facility] Aug 18, 2024 11:00 AM AMBULATORY - MEDICINE [facility] Sep 06, 2024 02:30 PM AMBULATORY - PSYCHIATRY [facility] Sep 28, 2024 11:40 AM AMBULATORY - SURGERY [facility] Active, Pending, and Scheduled Orders This section includes a listing of several types of active, pending, and scheduled orders, including clinic medications orders, diagnostic test orders, procedure orders and consult orders; where the start date of the order is 45 days before the date of the Encounter or 45 days after the date of theEncounter. The data comes from all [place] treatment facilities. Test Date/Time Test Type Test Details Facility Name Mar 15, 2024 12:00 PM Laboratory - Microbiology Order C&S URINE URINE,CLEAN CATCH WC [facility] Lab Results: +/- 30 days of the [...] Range Comment March 30, 2024 12:07 PM [facility] METHADONE PANEL (STL) Specimen Type: URINE Comment: The cut-off value for this test was laboratory developed and its performance characteristics confirmed by the [facility] laboratory thru method comparison with reference laboratory and medication chart review. The laboratory is regulated under CLIA as qualified to perform high-complexity testing. This test is used for clinical purposes in conjunction with other laboratory tests. Ordering Provider: JOSUE SCHILLING Report Released Date/Time: March 30, 2024 11:53 AM Reporting Lab: [facility] [address] Performing Lab: [facility] [address] ETHANOL Negative mg/dL 0-20 AMPHET/METHAMPHE TAMINE Negative ng/mL COCAINE METABOLITES Negative ng/mL BENZODIAZEPINES (STL) Negative ng/mL CANNABINOIDS 94-POS ng/mL METHADONE Negative ng/mL OPIATES Negative ng/mL CREATININE URINE/OTHERS 108.2 mg/dL 63.0-166.0 OXYCODONE (GAOPX-ZOS-RG) Negative ng/mL BUPRENORPHINE (STL-PB-MA) Negative ng/mL FENTANYL (STL-PB) Negative ng/mL March 30, 2024 12:02 PM [facility] TSH (MA-PB) Specimen Type: SERUM No comment entered. Ordering Provider: JOSUE SCHILLING Report Released Date/Time: March 30, 2024 11:54 AM Reporting Lab: [facility] [address] Performing Lab: [facility] [address] TSH 1.066 u[IU]/mL 0.470 -5.00 0 March 30, 2024 12:02 PM [facility] HGA1C Specimen Type: BLOOD No comment entered. Ordering Provider: JOSUE SCHILLING Report Released Date/Time: March 30, 2024 11:54 AM Reporting Lab: [facility] [address] Performing Lab: [facility] [address] HGA1C 4.8 4.0-6.0 March 30, 2024 12:02 PM [facility] COMPREHENSIVE METABOLIC PANEL Specimen Type: PLASMA Comment: No hemolysis noted. Ordering Provider: JOSUE SCHILLING Report Released Date/Time: March 30, 2024 11:54 AM Reporting Lab: [facility] [address] Performing Lab: [facility] [address] CREATININE 0.78 mg/dL 0.70-1.30 UREA NITROGEN 7.5 [...] 114.19 >60 March 30, 2024 12:02 PM [facility] CBC Specimen Type: BLOOD No comment entered. Ordering Provider: JOSUE SCHILLING Report Released Date/Time: March 30, 2024 11:54 AM Reporting Lab: [facility] [address] Performing Lab: [facility]1 [place] [phone] WBC 7.1 10*3/uL 3.6-11.2 RBC 4.14 10*6/uL [...] 10*3/uL 0.00-0.20 Mar 15, 2024 12:35 PM [facility] BRAIN NATRIURETIC PEPTIDE Specimen Type: PLASMA No comment entered. Ordering Provider: Mari ALVAREZ Report Released Date/Time: Mar 15, 2024 12:00 PM Reporting Lab: [address] [address] Performing Lab: [address] [address] BRAIN NATRIURETIC PEPTIDE 38.5 pg/mL 0-100 Mar 15, 2024 12:35 PM [facility] MAGNESIUM Specimen Type: PLASMA No comment entered. Ordering Provider: RADHA ZAMORA Report Released Date/Time: Mar 15, 2024 02:05 PM Reporting Lab: [address] [address] Performing Lab: [address] [address] MAGNESIUM 1.7 mg/dL 1.6-2.6 Mar 15, 2024 12:35 PM [facility] COVID-19 DIAGNOSTIC (FLU/RSV)(STL) Specimen Type: NASOPHARYNX Comment: [...] Mar 15, 2024 12:00 PM Reporting Lab: [address] [address] Performing Lab: [address] [address] INFLUENZA A Negative Negative INFLUENZA B Negative Negative COVID-19 (STL-PB) Not Detected Not Detected RSV (Cepheid) NEGATIVE Negative Mar 15, 2024 12:35 PM [facility] COMPREHENSIVE METABOLIC PANEL Specimen Type: PLASMA Comment: No hemolysis noted. Ordering Provider: Mari ALVAREZ Report Released Date/Time: Mar 15, 2024 12:00 PM Reporting Lab: [address] [address] Performing Lab: [address] [address] CREATININE 0.79 mg/dL 0.7-1.3 UREA NITROGEN 6.3 [...] 113.8 >60 Mar 15, 2024 12:35 PM [facility] CBC Specimen Type: BLOOD No comment entered. Ordering Provider: Mari ALVAREZ Report Released Date/Time: Mar 15, 2024 12:00 PM Reporting Lab: [facility] [address] [facility] [address] Performing Lab: [address] [address] WBC 6.4 10*3/uL 3.6-11.2 RBC 3.86 10*6/uL [...] 10*3/uL 0.00-0.20 Mar 15, 2024 12:35 PM [facility] TSH (MA-PB) Specimen Type: SERUM No comment entered. Ordering Provider: RADHA ZAMORA Report Released Date/Time: Mar 15, 2024 02:05 PM Reporting Lab: [place] [id number] [facility] [address] Performing Lab: [address] [address] TSH 1.227 u[IU]/mL 0.47-5 Vital Signs: All taken on the encounter date This section contains inpatient and outpatient Vital Signs collected on the date of the Encounter. Date/Time Temperature Pulse Blood Pressure Respiratory Rate SP02 Pain Height Weight Body Mass Index Source March 30, 2024 11:23 AM 98 89 128/88 16 99 6 172.6 24 [facility] Social History: Smoking Status (Most current) and Tobacco Use (All prior to encounter date) This section includes the most current, and the historical, smoking and tobacco- related health factors from the [place] facility where the Encounter took place. Current Smoking Status This section includes the most current smoking, or tobacco-related health factor, from the [place] facility where the Encounter took place. Date/Time Current Smoking Status Comment Facil ity Jun 05, 2023 11:00 AM VA-TOBACCO USER SOME DAYS [facility] Tobacco Use History This section includes a history of the smoking, or tobacco-related health factors, that were collected on or before the date of the Encounter. The data comes from the [place] facility where the Encounter took place. Date/Time Smoking Status/Tobacco Use Comment F acility Jun 05, 2023 11:00 AM VA-TOBACCO USE 5 TO 15 YEARS [facility] Jun 05, 2023 11:00 AM VA-TOBACCO USE ADVICE 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 Jun 05, 2023 11:00 AM VA-TOBACCO USE MED NO [facility] Jun 05, 2023 11:00 AM VA-TOBACCO USER SOME DAYS [facility] April 16, 2022 03:00 PM VA-TOBACCO FORMER USER [facility] April 16, 2022 03:00 PM VA-TOBACCO QUIT < 1 YEAR [facility] Nov 14, 2020 09:38 AM VA-TOBACCO USE 1 TO < 5 YEARS [facility] Nov 14, 2020 09:38 AM VA-TOBACCO USE ADVICE 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 Nov 14, 2020 09:38 AM VA-TOBACCO USE MED NO [facility] Nov 14, 2020 09:38 AM VA-TOBACCO USE WI 30 MIN OF WAKEUP [facility] Nov 14, 2020 09:38 AM VA-TOBACCO USER EVERY DAY [facility] Feb 08, 2019 10:08 AM VA-TOBACCO FORMER USER [facility] Feb 08, 2019 10:08 AM VA-TOBACCO QUIT 1 TO < 5 YRS [facility] Oct 17, 2017 03:25 PM CURRENT TOBACCO USER [facility] Oct 17, 2017 03:25 PM CURRENT TOBACCO US ER (NOT READY TO QUIT) [facility] Oct 17, 2017 03:25 PM TOBACCO CESSATION REFERRAL DECLINED [facility] Oct 17, 2017 03:25 PM TOBACCO MEDS OFFER ED BUT DECLINED [facility] Oct 17, 2017 03:25 PM TOBACCO USER OFFERED MEDS [facility] Jul 02, 2017 03:19 PM CURRENT TOBACCO USER [facility] Advance Directives: All historical and current Section Date Range: From patient's date of to the date document was created. This section includes ALL of a patient's completed or amended [place] Advance and Rescinded Directives. The entries below indicate that a directive exists for the patient, but an actual copy is not included with this document. The data comes from all [place] facilities. Date Advance Directives Provider Source May 07, 2023 ADVANCE DIRECTIVE DARLEEN ENRIQUEZ Jose [facility] Encounter Notes: All associated encounter notes This section contains the clinical notes associated to the Encounter. Date/Time Encounter Note(s) Provider Source Apr 20, 2024 08:21 AM ADDENDUM: LOCAL TITLE: Addendum STANDARD TITLE: ADDENDUM DATE OF NOTE: APR 20, 2024@08:21:25 ENTRY DATE: APR 20, 2024@08:21:26 AUTHOR: JOSUE SCHILLING EXP COSIGNER: URGENCY: STATUS: COMPLETED Bilateral carpal tunnel syndrome as per EMG study on April 19, 2024: Plan for Ortho consult done /loyda/ Josue Schilling MD Staff Physician Signed: 04/20/2024 08:22 Receipt Acknowledged By: 04/20/2024 13:21 /loyda/ FELIPA QUEZADA REGISTERED NURSE --- Original Document --- 03/30/24 PRIMARY CARE PROVIDER ESTABLISHED VISIT STL: ESTABLISHED PATIENT DOCT-IF-WSBN: 43 yoM h/o HTN, PTSD, MDD, SHIRA, h/o chronic EtOH abuse/dependence, h/o multiple TBIs (per [facility] 05/[facility]/21 and [facility] evaluation 2009), CLBP, insomnia, ADHD. CC / HPI : routine f/u visit. Father drove him here today. According to he does not drive because of anxiety. is complaining of numbness and tingling in both hands. Recently ER visit for Cramping, paresthesias, bilateral lower extremity swelling and discharged with diagnosis of hypokalemia and paracentesis. [place] is taking Adderall from outside provider for as needed use Denies any other complaint today Allergies: NKDA Social History : Tobacco : Using few cigarettes and pouch ETHO : 2-3 times per week, few drink each time. drugs : marijuina daily Blood Transfusion : no Tattoo : yes Living situation : self Work :no ROS : GENERAL: no fever, no chills PULMONARY: denies SOB , cough , wheezing CARDIAC: denies chest pain, denies palpitations GI: no nausea, no vomiting, no abd: pain, no diarrhea, no constipation EXT: denies pedal edema, c/o arthritis NEURO : no dizziness, no headache Physical exam : GENERAL: pleasant HEART: S1, S2 WNL, CHEST/LUNGS: Clear to auscultation bilaterally. ABDOMEN: soft, nontender EXTREMITIES: feet and ankles without edema, peripheral pulses intact. NEUROLOGICAL: not in acute distress ASSESSMENT/PLAN: The patient's most recent test results and medication list were reviewed in detail with the patient. - Hypokalemia: Plan for repeat lab. - bilateral knuckle pain and swelling. Will see see rheumatology. Plan for nerve conduction study - Elevated BP : Will need a blood pressure log book at next visit, plan for low salt diet - PTSD / Depression / anxiety / ADHD /insomnia: No SI, no HI. sees psych: - ETHO Use : counselling was done again - Tobacco use: counseling was done. Plan: cont's meds. need to bring all medication bottles at next visit. nonfasting lab today. Medications list updated with patient today. RTC 1 month video visit pt is asymtomatic now If any Chest pain, ,SOB, headache, dizziness, Blurring of vision,or or worsening of symptoms call 911 or go to ER. Health Maintance : PSA : Colonoscopy : Taunts Shot :2017 Pneumovax : P 20: 202 ZOSTER : Patient understands to call nurse coordinator if any new concerns, and go to the emergency room for any acute problem(s). Patient voices understanding and agrees with plan of care. Medication Reconciliation Opt STL: I have reviewed the patient's medication list (including active outpatient prescriptions dispensed from this [facility] (local) and dispensed from another [place] or [facility] facility (remote) as well as inpatient orders (local pending and active), local clinic medications, locally documented non-VA medications, and local prescriptions that have or been discontinued in the past 90 days.) with the patient and/or his/her care-clinical rehabilitation aide. Handwritten corrections, additions and/or deletions were made to the list, as appropriate. Corrected Outpatient Medication List was provided to the patient/caregiver. /saranya Schilling MD Staff Physician Signed: 04/02/2024 10:20 04/08/2024 ADDENDUM STATUS: COMPLETED please mail the lab letter. /saranya Schilling MD Staff Physician Signed: 04/08/2024 09:03 Receipt Acknowledged By: 04/09/2024 09:46 /JOSUE Ring MSA [facility] April 08, 2024 09:02 AM ADDENDUM: LOCAL TITLE: Addendum STANDARD TITLE: ADDENDUM DATE OF NOTE: APRIL 08, 2024@09:02:30 ENTRY DATE: APRIL 08, 2024@09:02:32 AUTHOR: JOSUE SCHILLING EXP COSIGNER: URGENCY: STATUS: COMPLETED please mail the lab letter. /saranya Schilling MD Staff Physician Signed: 04/08/2024 09:03 Receipt Acknowledged By: 04/09/2024 09:46 /saranya YOUNG MSA --- Original Document --- 03/30/24 PRIMARY CARE PROVIDER ESTABLISHED VISIT STL: ESTABLISHED PATIENT EVTA-GT-OHIS: 43 yoM h/o HTN, PTSD, MDD, SHIRA, h/o chronic EtOH abuse/dependence, h/o multiple TBIs ([facility] and [facility] evaluation 2009), CLBP, insomnia, ADHD. CC / HPI : routine f/u visit. Father drove him here today. According to he does not drive because of anxiety. [place] is complaining of numbness and tingling in both hands. Recently ER visit for Cramping, paresthesias, bilateral lower extremity swelling and discharged with diagnosis of hypokalemia and paracentesis. [place] is taking Adderall from outside provider for as needed use Denies any other complaint today Allergies: NKDA Social History : Tobacco : Using few cigarettes and pouch ETHO : 2-3 times per week, few drink each time. drugs : marijuina daily Blood Transfusion : no Tattoo : yes Living situation : self Work :no ROS : GENERAL: no fever, no chills PULMONARY: denies SOB , cough , wheezing CARDIAC: denies chest pain, denies palpitations GI: no nausea, no vomiting, no abd: pain, no diarrhea, no constipation EXT: denies pedal edema, c/o arthritis NEURO : no dizziness, no headache Physical exam : GENERAL: pleasant HEART: S1, S2 WNL, CHEST/LUNGS: Clear to auscultation bilaterally. ABDOMEN: soft, nontender EXTREMITIES: feet and ankles without edema, peripheral pulses intact. NEUROLOGICAL: not in acute distress ASSESSMENT/PLAN: The patient's most recent test results and medication list were reviewed in detail with the patient. - Hypokalemia: Plan for repeat lab. - bilateral knuckle pain and swelling. Will see see rheumatology. Plan for nerve conduction study - Elevated BP : Will need a blood pressure log book at next visit, plan for low salt diet - PTSD / Depression / anxiety / ADHD /insomnia: No SI, no HI. sees psych: - ETHO Use : counselling was done again - Tobacco use: counseling was done. Plan: cont's meds. need to bring all medication bottles at next visit. nonfasting lab today. Medications list updated with patient today. RTC 1 month video visit pt is asymtomatic now If any Chest pain, ,SOB, headache, dizziness, Blurring of vision,or or worsening of symptoms call 911 or go to ER. Health Maintance : PSA : Colonoscopy : Taunts Shot :2017 Pneumovax : P 20: 202 ZOSTER : Patient understands to call nurse coordinator if any new concerns, and go to the emergency room for any acute problem(s). Patient voices understanding and agrees with plan of care. Medication Reconciliation Opt STL: I have reviewed the patient's medication list (including active outpatient prescriptions dispensed from this [place] (local) and dispensed from another [place] or [facility] facility (remote) as well as inpatient orders (local pending and active), local clinic medications, locally documented non-VA medications, and local prescriptions that have or been discontinued in the past 90 days.) with the patient and/or his/her care-clinical rehabilitation aide. Handwritten corrections, additions and/or deletions were made to the list, as appropriate. Corrected Outpatient Medication List was provided to the patient/caregiver. /loyda/ Josue Schilling MD Staff Physician Signed: 04/02/2024 10:20 JOSUE SCHILLING [facility] April 08, 2024 09:02 AM PHYSICIAN LETTERS: LOCAL TITLE: TEST RESULT GENERAL LETTER STL STANDARD TITLE: PHYSICIAN LETTERS DATE OF NOTE: APRIL 08, 2024@09:02 ENTRY DATE: APRIL 08, 2024@09:03:01 AUTHOR: JOSUE SCHILLING EXP COSIGNER: URGENCY: STATUS: COMPLETED [facility] [address] [place] [address] APRIL 08, 2024 EYAL CURRY [address] [place] [id number] Dear Eyal Curry, I would like to update you on your recent test results. HEMOGLOBIN A1C - Gives us information about your diabetes (sugar or glucose) control over the past 3 months. Your target is to keep your A1C below 0 %. HGA1C 4.8 % 03/30/2024 12:02 These readings are within normal limits. CBC - A complete blood count (CBC) gives important information about the kinds and numbers of cells in the blood, especially red blood cells, white blood cells, and platelets. HGB 13.6 g/dL 03/30/2024 12:02 HEMATOCRIT 38.0 % L (03/30/24 12:02) PLT 306 10*3/uL 03/30/2024 12:02 WHITE BLOOD COUNT 7.1 10*3/uL (03/30/24 12:02) These readings are within normal limits. CHEM 7 - This is important information about the current status of your kidneys, liver, and electrolyte and acid/base balance as well as of your blood sugar and blood proteins. SODIUM 139 mEq/L 03/30/2024 12:02 POTASSIUM 3.8 mEq/L 03/30/2024 12:02 CHLORIDE 103 mEq/L 03/30/2024 12:02 UREA NITROGEN 7.5 L mg/dL 03/30/2024 12:02 CREATININE 0.78 mg/dL 03/30/2024 12:02 CALCIUM 9.5 mg/dL 03/30/2024 12:02 CARBON DIOXIDE 27 mEq/L 03/30/2024 12:02 GLUCOSE 104 H mg/dL 03/30/2024 12:02 EGFR (CKD-EPI 2020) 114.19 03/30/2024 12:02 The results are similar to previous values and not a clinical concern. LIVER FUNCTION PANEL - These are tests for liver function: PROTEIN 6.9 g/dL 03/30/2024 12:02 ALBUMIN 4.3 g/dL 03/30/2024 12:02 TOTAL BILIRUBIN 0.6 mg/dL 03/30/2024 12:02 ALKALINE PHOSPHATASE 57 U/L 03/30/2024 12:02 AST/SGOT 31 U/L 03/30/2024 12:02 ALT/SGPT 24 U/L 03/30/2024 12:02 These readings are within normal limits. TSH - Thyroid-stimulating hormone (also known as TSH or thyrotropin) is a peptide hormone synthesized and secreted by thyrotrope cells in the anterior pituitary gland, which regulates the endocrine function of the thyroid gland. TSH TSH 1.066 uIU/mL 03/30/2024 12:02 These readings are within normal limits. FUTURE APPOINTMENTS: 04/19/2024 14:00 [facility] 04/28/2024 13:00 [facility] PCP Sincerely, Josue Schilling MD Staff Physician EYAL CURRY ASHA [facility] March 30, 2024 11:47 AM ACCOUNTING OF DISC LOSURES NOTE: LOCAL TITLE: STATE PRESCRIPTION DRUG MONITORING PROGRAM STANDARD TITLE: ACCOUNTING OF DISCLOSURES NOTE DATE OF NOTE: MARCH 30, 2024@11:47:07 ENTRY DATE: MARCH 30, 2024@11:47:07 AUTHOR: JOSUE SCHILLING EXP COSIGNER: URGENCY: STATUS: COMPLETED This PDMP query was submitted by Josue Schilling MD. The clinical justification for this PDMP query is to review controlled substances prescribed outside of the [place], and any additional information that may become available, as an important component of standard clinical care, and in accordance with [facility] policy. Patient information was shared with the PDMP [employer]. Prescription(s) filled outside the [facility] in the last 90 days are noted. However, they do not raise significant safety concerns and do not influence the treatment plan at this time. /loyda/ Josue Schilling MD Staff Physician Signed: 04/02/2024 10:19 JOSUE SCHILLING Joe [facility] March 30, 2024 11:28 AM PRIMARY CARE NOTE: LOCAL TITLE: PRIMARY CARE PROVIDER ESTABLISHED VISIT [facility] STANDARD TITLE: PRIMARY CARE NOTE DATE OF NOTE: MARCH 30, 2024@11:28 ENTRY DATE: MARCH 30, 2024@11:28:59 AUTHOR: JOSUE SCHILLING EXP COSIGNER: URGENCY: STATUS: COMPLETED PRIMARY CARE PROVIDER ESTABLISHED VISIT [facility] Has ADDENDA ESTABLISHED PATIENT [id number]-JD-[id number]: 43 yoM h/o HTN, PTSD, MDD, SHIRA, h/o chronic EtOH abuse/dependence, h/o multiple TBIs (per [facility] 05/[facility]21 and [facility] evaluation 2009), CLBP, insomnia, ADHD. CC / HPI : routine f/u visit. Father drove him here today. According to he does not drive because of anxiety. [place] is complaining of numbness and tingling in both hands. Recently ER visit for Cramping, paresthesias, bilateral lower extremity swelling and discharged with diagnosis of hypokalemia and paracentesis. is taking Adderall from outside provider for as needed use Denies any other complaint today Allergies: NKDA Social History : Tobacco : Using few cigarettes and pouch ETHO : 2-3 times per week, few drink each time. drugs : marijuina daily Blood Transfusion : no Tattoo : yes Living situation : self Work :no ROS : GENERAL: no fever, no chills PULMONARY: denies SOB , cough , wheezing CARDIAC: denies chest pain, denies palpitations GI: no nausea, no vomiting, no abd: pain, no diarrhea, no constipation EXT: denies pedal edema, c/o arthritis NEURO : no dizziness, no headache Physical exam : GENERAL: pleasant HEART: S1, S2 WNL, CHEST/LUNGS: Clear to auscultation bilaterally. ABDOMEN: soft, nontender EXTREMITIES: feet and ankles without edema, peripheral pulses intact. NEUROLOGICAL: not in acute distress ASSESSMENT/PLAN: The patient's most recent test results and medication list were reviewed in detail with the patient. - Hypokalemia: Plan for repeat lab. - bilateral knuckle pain and swelling. Will see see rheumatology. Plan for nerve conduction study - Elevated BP : Will need a blood pressure log book at next visit, plan for low salt diet - PTSD / Depression / anxiety / ADHD /insomnia: No SI, no HI. sees psych: - ETHO Use : counselling was done again - Tobacco use: counseling was done. Plan: cont's meds. need to bring all medication bottles at next visit. nonfasting lab today. Medications list updated with patient today. RTC 1 month video visit pt is asymtomatic now If any Chest pain, ,SOB, headache, dizziness, Blurring of vision,or or worsening of symptoms call 911 or go to ER. Health Maintance : PSA : Colonoscopy : Taunts Shot :2017 Pneumovax : P 20: 202 ZOSTER : Patient understands to call nurse coordinator if any new concerns, and go to the emergency room for any acute problem(s). Patient voices understanding and agrees with plan of care. Medication Reconciliation Opt STL: I have reviewed the patient's medication list (including active outpatient prescriptions dispensed from this [facility] (local) and dispensed from another [place] or [place] facility (remote) as well as inpatient orders (local pending and active), local clinic medications, locally documented non-VA medications, and local prescriptions that have or been discontinued in the past 90 days.) with the patient and/or his/her care-clinical rehabilitation aide. Handwritten corrections, additions and/or deletions were made to the list, as appropriate. Corrected Outpatient Medication List was provided to the patient/caregiver. /saranya Schilling MD Staff Physician Signed: 04/02/2024 10:20 04/08/2024 ADDENDUM STATUS: COMPLETED please mail the lab letter. /saranya Schilling MD Staff Physician Signed: 04/08/2024 09:03 Receipt Acknowledged By: 04/09/2024 09:46 /loyda/ DALLAS YOUNG MSA 04/20/2024 ADDENDUM STATUS: COMPLETED Bilateral carpal tunnel syndrome as per EMG study on April 19, 2024: Plan for Ortho consult done /loyda/ Josue Schilling MD Staff Physician Signed: 04/20/2024 08:22 Receipt Acknowledged By: * AWAITING SIGNATURE * [facility] March 30, 2024 11:24 AM NURSING NOTE: LOCAL TITLE: V15 PACT FACE TO FACE NOTE STL STANDARD TITLE: NURSING NOTE DATE OF NOTE: MARCH 30, 2024@11:24 ENTRY DATE: MARCH 30, 2024@11:24:14 AUTHOR: ASIM MAHMOOD EXP COSIGNER: URGENCY: STATUS: COMPLETED Provider Visit: Patient Identifiers : Full Name Date of Reason for visit: Established Follow-Up Mode of Arrival: Ambulatory Allergy Review: Patient has answered NKA Allergy list reviewed and remains current. Recent Vital Signs: Temperature: 98 F [36.7 C] (03/30/2024 11:23) Pulse: 89 (03/30/2024 11:23) Respiration: 16 (03/30/2024 11:23) B/P: 128/88 (03/30/2024 11:) Pain: 6 (03/30/2024 11:23) Wt: 172.6 lb [78.29 kg] (03/30/2024 11:23) Ht: 71 in [180.3 cm] (06/05/2023 11:05) BMI: 24.1 POX: 99% (03/30/2024 11:23) Would you like to discuss any personal problem, family problem, alcohol use, drug use, or a mental or emotional illness? No My [facility] ([facility]), please select appointment type: Face to face: Yes-Do you have an upgraded (Premium) account which gives you the added benefit of Secure Messaging with your Primary Care Provider and refilling your prescriptions online? Contact provided Primary Care phone number and encouraged to call if any questions or concerns. Review that after hours nurse line [phone] and emergency room are available 09/06 for patient use. Contact verbalized good understanding. Homelessness/Food Insecurity Screen: The reports the following: Currently, you don't have enough money to get food OR you are worried that your food will run out before you get money to buy more. Inge /loyda/ Asim Mahmood LPN LICENSED PRACTICAL NURSE Signed: 03/30/2024 11:25 ASIM MAHMOOD [facility]
--- OUTSIDE RECORDS SUMMARY | 2024-11-14 04:29 | XMS_ITS ---
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 Name Role Phone JOSUE NGO Primary Care [...] PRESCRIPT ION RX PLAN Nov 17, 2018 [facility] [id number] [phone] Jose TABARES PATIENT [employer] [facility] PRESCRIPT ION EAL Nov 17, 2018 [facility] [id number] [phone] Jose TABARES PATIENT [facility] WHELA Jose SECUR ITY Nov 17, 2018 [id number] [phone] Jose TABARES PATIENT [facility] MENTAL HEALTH WHELA N SECUR ITY Nov 17, 2018 [id number] Jose TABARES PATIENT [facility] PREFERRED PROVIDER ORGANIZAT ION (PPO) WHEJEROD Garcia SECUR ITY Nov 17, 2018 [id number] [phone] RAYSHAWNJose BOATENG PATIENT [facility] PREFERRED PROVIDER ORGANIZAT ION (PPO) JOSE FRIEDMAN Nov 17, 2018 [id number] [phone] Jose TABARES MAITELEESAMichael PATIENT Selected Encounter This section includes the information on record at MD for the Encounter. Date/Time Encounter Type Encounter Description Reason Pro vider Source Apr 19, 2024 02:00 PM NRV CNDJ TEST 9-10 STUDIES EMG - ELECTROMYOGRAM ICD-10-CM G56.03 Carpal tunnel syndrome, bilateral upper limbs LESLIE,ALBANIAN IHE Encounter Template Text not used by MD Assessments - Encounter Diagnoses This section includes the primary and secondary diagnoses documented for the Encounter. Date/Time Primary/Secondary Diagnosis Diagnosis Name Provider Source Apr 19, 2024 02:41 PM PRIMARY Carpal tunnel syndrome, bilateral upper limbs MARIAMA,ALBANIAN [facility] Plan of Treatment: Future Appointments (+ 6 months) and Future Tests (+/- 45 days) The Plan of Treatment section includes future care activities for the patient from all MD treatmentfacilities. This section includes future appointments and future orders which are active, pending or scheduled. Future Appointments This section includes appointments that were scheduled to occur 6 months from the date of the Encounter, up to a maximum of 20 appointments. The data comes from all MD treatment facilities. Appointment Date/Time Appointment Type Appointme nt Facility Name Apr 27, 2024 11:00 AM AMBULATORY - PSYCHIATRY [facility] Apr 28, 2024 01:00 PM AMBULATORY - MEDICINE [facility] May 14, 2024 03:30 PM AMBULATORY - MEDICINE [facility] May 31, 2024 01:30 PM AMBULATORY - SURGERY [facility] Jul 05, 2024 01:30 PM AMBULATORY - PSYCHIATRY [facility] Aug 06, 2024 12:30 PM AMBULATORY - PSYCHIATRY [facility] Aug 18, 2024 11:00 AM AMBULATORY - MEDICINE [facility] Sep 06, 2024 02:30 PM AMBULATORY - PSYCHIATRY [facility] Sep 28, 2024 11:40 AM AMBULATORY - SURGERY [facility] Active, Pending, and Scheduled Orders This section includes a listing of several types of active, pending, and scheduled orders, including clinic medications orders, diagnostic test orders, procedure orders and consult orders; where the start date of the order is 45 days before the date of the Encounter or 45 days after the date of theEncounter. The data comes from all MD treatment facilities. Test Date/Time Test Type Test Details Facility Name Mar 15, 2024 12:00 PM Laboratory - Microbiology Order C&S URINE URINE,CLEAN CATCH WC [facility] Lab Results: +/- 30 days of the encounter This section includes the Chemistry and Hematology Lab Results on record with MD for the patient. Radiology Reports and Pathology Reports are provided separately, in subsequent sections. Lab Results This section contains the Chemistry/Hematology Results that were resulted 30 days before or 30 daysafter the date of the Encounter. Date/Time Source Result Type Result - Unit Interpretation Reference Range Comment March 30, 2024 12:07 PM [facility] METHADONE PANEL (STL) Specimen Type: URINE Comment: The cut-off value for this test was laboratory developed and its performance characteristics confirmed by the [facility] laboratory thru method comparison with reference laboratory and medication chart review. The laboratory is regulated under CLIA as qualified to perform high-complexity testing. This test is used for clinical purposes in conjunction with other laboratory tests. Ordering Provider: JOSUE NGO Report Released Date/Time: March 30, 2024 11:53 AM Reporting Lab: [facility] [phone] Performing Lab: [facility] [id number] ETHANOL Negative mg/dL 0-20 AMPHET/METHAMPHE TAMINE Negative ng/mL COCAINE METABOLITES Negative ng/mL BENZODIAZEPINES (STL) Negative ng/mL CANNABINOIDS 94-POS ng/mL METHADONE Negative ng/mL OPIATES Negative ng/mL CREATININE URINE/OTHERS 108.2 mg/dL 63.0-166.0 OXYCODONE (FNDIP-LBK-PI) Negative ng/mL BUPRENORPHINE (STL-PB-MA) Negative ng/mL FENTANYL (STL-PB) Negative ng/mL March 30, 2024 12:02 PM [facility] TSH (MA-PB) Specimen Type: SERUM No comment entered. Ordering Provider: JOSUE NGO Report Released Date/Time: March 30, 2024 11:54 AM Reporting Lab: [facility] [place] [address] Performing Lab: [facility] [place] [phone] TSH 1.066 u[IU]/mL 0.470 -5.00 0 March 30, 2024 12:02 PM [facility] HGA1C Specimen Type: BLOOD No comment entered. Ordering Provider: JOSUE NGO Report Released Date/Time: March 30, 2024 11:54 AM Reporting Lab: [facility] [place] [address] Performing Lab: [facility] [address] [place] [address] HGA1C 4.8 4.0-6.0 March 30, 2024 12:02 PM [facility] COMPREHENSIVE METABOLIC PANEL Specimen Type: PLASMA Comment: No hemolysis noted. Ordering Provider: JOSUE NGO Report Released Date/Time: March 30, 2024 11:54 AM Reporting Lab: [facility] [place] [address] Performing Lab: [facility] [address] [place] [address] CREATININE 0.78 mg/dL 0.70-1.30 UREA NITROGEN 7.5 [...] 114.19 >60 March 30, 2024 12:02 PM [facility] CBC Specimen Type: BLOOD No comment entered. Ordering Provider: JOSUE NGO Report Released Date/Time: March 30, 2024 11:54 AM Reporting Lab: [facility] [phone] Performing Lab: [facility] [phone] WBC 7.1 10*3/uL 3.6-11.2 RBC 4.14 10*6/uL [...] and tobacco- related health factors from the MD facility where the Encounter took place. Current Smoking Status This section includes the most current smoking, or tobacco-related health factor, from the MD facility where the Encounter took place. Date/Time Current Smoking Status Comment Facil [facility] May 07, 2023 06:21 AM ORYX ADMIT TOBACCO SCREEN YES [facility] Tobacco Use History This section includes a history of the smoking, or tobacco-related health factors, that were collected on or before the date of the Encounter. The data comes from the MD facility where the Encounter took place. Date/Time Smoking Status/Tobacco Use Comment F acility May 07, 2023 06:21 AM ORYX ADMIT TOBACCO USE CIGS LS 5D [facility] May 07, 2023 06:21 AM ORYX DAILY TOBACCO SENIOR C DEVELOPER RECEIVED [facility] May 07, 2023 06:21 AM ORYX DAILY TOBACCO MEDS REFUSED [facility] Oct 27, 2013 02:51 PM QUIT TOBACCO >7 YEARS AGO [facility] Jan 07, 2013 10:01 AM CURRENT TOBACCO USER [facility] Jan 07, 2013 10:01 AM TOBACCO MEDS OFFER ED BUT DECLINED [facility] Sep 18, 2011 12:08 PM QUIT TOBACCO IN TH E LAST 12 MONTHS [facility] Jul 25, 2011 03:33 PM CURRENT TOBACCO USER [facility] Jul 20, 2010 10:35 AM QUIT TOBACCO IN TH E LAST 12 MONTHS [facility] Advance Directives: All historical and current Section Date Range: From patient's date of to the date document was created. This section includes ALL of a patient's completed or amended MD Advance and Rescinded Directives. The entries below indicate that a directive exists for the patient, but an actual copy is not included with this document. The data comes from all MD facilities. Date Advance Directives Provider Source May 07, 2023 ADVANCE DIRECTIVE DARLEEN ENRIQUEZ [facility] Encounter Notes: All associated encounter notes This section contains the clinical notes associated to the Encounter. Date/Time Encounter Note(s) Provider Source Apr 19, 2024 02:39 PM ELECTROPHYSIOLOGY DIAGNOSTIC STUDY REPORT: LOCAL TITLE: EMG PROCEDURE REPORT ST STANDARD TITLE: ELECTROPHYSIOLOGY DIAGNOSTIC STUDY REPORT DATE OF NOTE: APR 19, 2024@14:39:23 ENTRY DATE: APR 19, 2024@14:39:23 AUTHOR: CLINICAL,DEVICE PRO EXP COSIGNER: URGENCY: STATUS: COMPLETED PROCEDURE SUMMARY CODE: Machine Resulted DATE/TIME PERFORMED: APR 19, 2024@14:09:1 DOCUMENT IN [facility] SEE FULL REPORT IN [facility]IST[facility] SIGNATURE NOT REQUIRED SEE SIGNATURE IN VISTA IMAGING Administrative Closure: 04/19/2024 by: CLINICAL,DEVICE PROXY SERVICE CLINICAL,DEVICE PROXY SERVICE [facility]
--- OUTSIDE RECORDS SUMMARY | 2024-11-14 04:29 | XMS_ITS | Encounter Summary ---
Author Name [facility] [place] Organization [place] Address [address] [place] [address] Care Team Providers Care Director Security Management Name Role Phone JOSUE NGO Primary Care [...] to Policy Cano OPTUM RX PRESCRIPT ION UHEAL TH Nov 17, 2018 [facility] [id number] [phone] Jose TABARES PATIENT [facility] RX PRESCRIPT ION RX PLAN Nov 17, 2018 [facility] [id number] [phone] Jose TABARES PATIENT [facility] SEC[facility] ITY Nov 17, 2018 [id number] Jose TABARES PATIENT [facility] SEC[facility] ITY Nov 17, 2018 [id number] [phone] Jose TABARES PATIENT [facility] PREFERRED PROVIDER ORGANIZAT ION (PPO) WHELA N SECUR ITY Nov 17, 2018 [id number] [phone] Jose TABARES PATIENT [facility] PREFERRED PROVIDER ORGANIZAT ION (PPO) JOSE FRIEDMAN Nov 17, 2018 [id number] [phone] Jose TABARES PATIENT Selected Encounter This section includes the information on record at [place] for the Encounter. Date/Time Encounter Type Encounter Description Reason Pro vider Source Mar 15, 2024 12:00 PM Outpatient Encounter EMERGENCY DEPT IHE Encounter Template Text not used by [facility] Plan of Treatment: Future Appointments (+ 6 months) and Future Tests (+/- 45 days) The Plan of Treatment section includes future care activities for the patient from [facility] [place] [facility] This section includes future appointments and future orders which are active, pending or scheduled. Future Appointments This section includes appointments that were scheduled to occur 6 months from the date of the Encounter, up to a maximum of 20 appointments. The data comes from all [facility]. Appointment Date/Time Appointment Type Appointme nt Facility Name March 30, 2024 11:30 AM AMBULATORY - MEDICINE [facility] Apr 19, 2024 02:00 PM AMBULATORY - NEUROLOGY [facility] Apr 27, 2024 11:00 AM AMBULATORY - PSYCHIATRY [facility] Apr 28, 2024 01:00 PM AMBULATORY - MEDICINE [facility] May 14, 2024 03:30 PM AMBULATORY - MEDICINE [facility] May 31, 2024 01:30 PM AMBULATORY - SURGERY [facility] Jul 05, 2024 01:30 PM AMBULATORY - PSYCHIATRY [facility] Aug 06, 2024 12:30 PM AMBULATORY - PSYCHIATRY [facility] Aug 18, 2024 11:00 AM AMBULATORY - MEDICINE [facility] Sep 06, 2024 02:30 PM AMBULATORY - PSYCHIATRY [facility] Active, Pending, [...] of theEncounter. The data comes from all [facility]. Test Date/Time Test Type Test Details Facility Name Mar 15, 2024 12:00 PM Laboratory - Microbiology Order C&S URINE URINE,CLEAN CATCH WC [facility] Lab Results: +/- 30 days of the encounter This section includes the Chemistry and Hematology Lab Results on record with [place] for the patient. Radiology Reports and Pathology Reports are provided separately, in subsequent sections. Lab Results This section contains the Chemistry/Hematology Results that were resulted 30 days before or 30 daysafter the date of the Encounter. Date/Time Source Result Type Result - Unit Interpretation Reference Range Comment March 30, 2024 12:07 PM [facility] METHADONE PANEL (STL) Specimen Type: URINE Comment: The cut-off value for this test was laboratory developed and its performance characteristics confirmed by the [facility] laboratory thru method comparison with reference laboratory and medication chart review. The laboratory is regulated under CLIA as qualified to perform high-complexity testing. This test is used for clinical purposes in conjunction with other laboratory tests. Ordering Provider: JOSUE NGO Report Released Date/Time: March 30, 2024 11:53 AM Reporting Lab: [facility] [address] Performing Lab: [facility] [address] [address] ETHANOL Negative mg/dL 0-20 AMPHET/METHAMPHE TAMINE Negative ng/mL COCAINE METABOLITES Negative ng/mL BENZODIAZEPINES (STL) Negative ng/mL CANNABINOIDS 94-POS ng/mL METHADONE Negative ng/mL OPIATES Negative ng/mL CREATININE URINE/OTHERS 108.2 mg/dL 63.0-166.0 OXYCODONE (UASAD-YLY-RG) Negative ng/mL BUPRENORPHINE (STL-PB-MA) Negative ng/mL FENTANYL (STL-PB) Negative ng/mL March 30, 2024 12:02 PM [facility] TSH (MA-PB) Specimen Type: SERUM No comment entered. Ordering Provider: JOSUE NGO Report Released Date/Time: March 30, 2024 11:54 AM Reporting Lab: [facility] [address] Performing Lab: [facility] [address] [facility] [address] TSH 1.066 u[IU]/mL 0.470 -5.00 0 March 30, 2024 12:02 PM [facility] HGA1C Specimen Type: BLOOD No comment entered. Ordering Provider: JOSUE NGO Report Released Date/Time: March 30, 2024 11:54 AM Reporting Lab: [facility] [address] Performing Lab: [facility] [address] [address] HGA1C 4.8 4.0-6.0 March 30, 2024 12:02 PM [facility] COMPREHENSIVE METABOLIC PANEL Specimen Type: PLASMA Comment: No hemolysis noted. Ordering Provider: JOSUE NGO Report Released Date/Time: March 30, 2024 11:54 AM Reporting Lab: [facility] [address] Performing Lab: [facility] [address] CREATININE 0.78 mg/dL 0.70-1.30 UREA NITROGEN 7.5 [...] 114.19 >60 March 30, 2024 12:02 PM [facility] CBC Specimen Type: BLOOD No comment entered. Ordering Provider: JOSUE NGO Report Released Date/Time: March 30, 2024 11:54 AM Reporting Lab: [facility] [address] Performing Lab: [facility] [address] WBC 7.1 10*3/uL 3.6-11.2 RBC 4.14 10*6/uL [...] 10*3/uL 0.00-0.20 Mar 15, 2024 12:35 PM [facility] BRAIN NATRIURETIC PEPTIDE Specimen Type: PLASMA No comment entered. Ordering Provider: Mari ALVAREZ Report Released Date/Time: Mar 15, 2024 12:00 PM Reporting Lab: [facility] [address] [facility] [address] Performing Lab: [address] [address] BRAIN NATRIURETIC PEPTIDE 38.5 pg/mL 0-100 Mar 15, 2024 12:35 PM [facility] MAGNESIUM Specimen Type: PLASMA No comment entered. Ordering Provider: RADHA ZAMORA Report Released Date/Time: Mar 15, 2024 02:05 PM Reporting Lab: [address] [address] Performing Lab: [address] [address] MAGNESIUM 1.7 mg/dL 1.6-2.6 Mar 15, 2024 12:35 PM [facility] COVID-19 DIAGNOSTIC (FLU/RSV)([facility]) Specimen Type: NASOPHARYNX Comment: Qualitative real-time PCR [...] Mar 15, 2024 12:00 PM Reporting Lab: [address] [address] Performing Lab: [address] [address] INFLUENZA A Negative Negative INFLUENZA B Negative Negative COVID-19 (L-PB) Not Detected Not Detected RSV (Cepheid) NEGATIVE Negative Mar 15, 2024 12:35 PM [facility] COMPREHENSIVE METABOLIC PANEL Specimen Type: PLASMA Comment: No hemolysis noted. Ordering Provider: Mari ALVAREZ Report Released Date/Time: Mar 15, 2024 12:00 PM Reporting Lab: [address] [address] Performing Lab: [address] [address] CREATININE 0.79 mg/dL 0.7-1.3 UREA NITROGEN 6.3 [...] 113.8 >60 Mar 15, 2024 12:35 PM [facility] CBC Specimen Type: BLOOD No comment entered. Ordering Provider: Mari ALVAREZ Report Released Date/Time: Mar 15, 2024 12:00 PM Reporting Lab: [address] [address] Performing Lab: [address] [address] WBC 6.4 10*3/uL 3.6-11.2 RBC 3.86 10*6/uL [...] 10*3/uL 0.00-0.20 Mar 15, 2024 12:35 PM [facility] TSH (MA-PB) Specimen Type: SERUM No comment entered. Ordering Provider: RADHA ZAMORA Report Released Date/Time: Mar 15, 2024 02:05 PM Reporting Lab: [address] [place] [address] Performing Lab: [facility] [address] [facility] [address] TSH 1.227 u[IU]/mL 0.47-5 Vital Signs: All taken on the encounter date This section contains inpatient and outpatient Vital Signs collected on the date of the Encounter. Date/Time Temperature Pulse Blood Pressure Respiratory Rate SP02 Pain Height Weight Body Mass Index Source Mar 15, 2024 03:00 PM 64 117/88 [facility] N Mar 15, 2024 02:00 PM 69 121/93 [facility] Mar 15, 2024 11:56 AM 89 135/87 18 7 [facility] N Social History: Smoking Status (Most current) [...] 06:21 AM ORYX ADMIT TOBACCO SCREEN YES [facility] Tobacco Use History This section includes a history of the smoking, or tobacco-related health factors, that were collected on or before the date of the Encounter. The data comes from the [place] facility where the Encounter took place. Date/Time Smoking Status/Tobacco Use Comment F acility May 07, 2023 06:21 AM ORYX ADMIT TOBACCO USE CIGS LS 5D [facility] May 07, 2023 06:21 AM ORYX DAILY TOBACCO MEAT TEAM LEAD RECEIVED [facility] May 07, 2023 06:21 AM ORYX DAILY TOBACCO MEDS REFUSED [facility] Oct 27, 2013 02:51 PM QUIT TOBACCO >7 YEARS AGO [facility] Jan 07, 2013 10:01 AM CURRENT TOBACCO USER [facility] Jan 07, 2013 10:01 AM TOBACCO MEDS OFFER ED BUT DECLINED [facility] Sep 18, 2011 12:08 PM QUIT TOBACCO IN TH E LAST 12 MONTHS [facility] Jul 25, 2011 03:33 PM CURRENT TOBACCO USER [facility] Jul 20, 2010 10:35 AM QUIT TOBACCO IN TH E LAST 12 MONTHS [facility] Advance Directives: All historical and current Section Date Range: From patient's date of to the date document was created. This section includes ALL of a patient's completed or amended [place] Advance and Rescinded Directives. The entries below indicate that a directive exists for the patient, but an actual copy is not included with this document. The data comes from all [place] facilities. Date Advance Directives Provider Source May 07, 2023 ADVANCE DIRECTIVE DARLEEN ENRIQUEZ [facility] Encounter Notes: All associated encounter notes This section contains the clinical notes associated to the Encounter. Date/Time Encounter Note(s) Provider Source Mar 15, 2024 12:50 PM CARDIOLOGY DIAGNOS TIC STUDY CONSULT: LOCAL TITLE: EKG CONSULT [facility] STANDARD TITLE: CARDIOLOGY DIAGNOSTIC STUDY CONSULT DATE OF NOTE: MAR 15, 2024@12:50:43 ENTRY DATE: MAR 15, 2024@12:50:43 AUTHOR: CLINICAL,DEVICE PRO EXP COSIGNER: URGENCY: STATUS: COMPLETED DOCUMENT IN [facility] SEE FULL REPORT IN [facility] SIGNATURE NOT REQUIRED SEE SIGNATURE IN [facility] ([place] EKG) AUTO-INSTRUMENT DIAGNOSIS Procedure: [id number] 12 Lead ECG Release Status: Released Off-Line Verified Date Verified: Mar 15, 2024@12:50:36 60215.2 Ventricular Rate: 88 BPM 47138.3 Atrial Rate: 88 BPM 49243.4 P-R Interval: 144 ms 95829.5 QRS Duration: 100 ms 69951.6 Q-T Interval: 384 ms 99905 QTC Calculation(Bazett)464 ms 98544.12 Calculated P [place]: 40 degrees 85774.13 Calculated R [place]: 12 degrees 34015.14 Calculated T [place]: 13 degrees Normal sinus rhythm Normal ECG When compared with ECG of 13-JUL-2023 12:45, No significant change was found Administrative Closure: 03/15/2024 by: CLINICAL,DEVICE PROXY SERVICE CLINICAL,DEVICE PROXY SERVICE [facility]
--- OUTSIDE RECORDS SUMMARY | 2024-11-14 04:29 | XMS_ITS ---
Author Name [facility] [place] Organization [place] Address [address] [place] [address] Care Team Providers Care Video Coordinator Name Role Phone JOSUE NGO Primary Care [...] PRESCRIPT ION UHEAL TH Nov 17, 2018 [facility] [id number] Jose TABARES PATIENT [facility] RX PRESCRIPT ION RX PLAN Nov 17, 2018 [facility] [id number] [phone] Jose TABARES PATIENT [facility] Nov 17, 2018 [id number] Jose TABARES PATIENT [facility] WHE[facility] N SECUR ITY Nov 17, 2018 [id number] [phone] Jose TABARES PATIENT [facility] PREFERRED PROVIDER ORGANIZAT ION (PPO) WHELA N SECUR ITY Nov 17, 2018 [id number] [phone] Jose TABARES PATIENT [facility] PREFERRED PROVIDER ORGANIZAT ION (PPO) JOSE NEGRETE ITY Nov 17, 2018 [id number] Jose TABARES PATIENT Selected Encounter This section includes the information on record at [place] for the Encounter. Date/Time Encounter Type Encounter Description Reason Provider Source Mar 15, 2024 03:39 PM Outpatient Encounter EVENT (HISTORICAL) RADHA ZAMORA Tatyana Encounter Template Text not used by [place] Plan of Treatment: Future Appointments (+ 6 months) and Future Tests (+/- 45 days) The Plan of Treatment section includes future care activities for the patient from all [place] [facility]. This section includes future appointments and future orders which are active, pending or scheduled. Future Appointments This section includes appointments that were scheduled to occur 6 months from the date of the Encounter, up to a maximum of 20 appointments. The data comes from all [facility]. Appointment Date/Time Appointment Type Appointme nt Facility Name March 30, 2024 11:30 AM AMBULATORY - MEDICINE [facility] Apr 19, 2024 02:00 PM AMBUL[facility]ORY - NEUROLOGY [facility] Apr 27, 2024 11:00 AM AMBULATORY - PSYCHIATRY [facility] Apr 28, 2024 01:00 PM AMBULATORY - MEDICINE [facility] May 14, 2024 03:30 PM AMBULATORY - MEDICINE [facility] May 31, 2024 01:30 PM AMBULATORY - SURGERY [facility] Jul 05, 2024 01:30 PM AMBULATORY - PSYCHIATRY [facility] Aug 06, 2024 12:30 PM AMBULATORY - PSYCHIATRY [facility] Aug 18, 2024 11:00 AM AMBULATORY - MEDICINE [facility] Sep 06, 2024 02:30 PM AMBULATORY - PSYCHIATRY [facility] Active, Pending, and Scheduled Orders This section includes a listing of several types of active, pending, and scheduled orders, including clinic medications orders, diagnostic test orders, procedure orders and consult orders; where the start date of the order is 45 days before the date of the Encounter or 45 days after the date of theEncounter. The data comes from all [facility] treatment facilities. Test Date/Time Test Type Test Details Facility Name Mar 15, 2024 12:00 PM Laboratory - Microbiology Order C&S URINE URINE,CLEAN CATCH WC [facility] Lab Results: +/- 30 days of the encounter This section includes the Chemistry and Hematology Lab Results on record with [place] for the patient. Radiology Reports and Pathology Reports are provided separately, in subsequent sections. Lab Results This section contains the Chemistry/Hematology Results that were resulted 30 days before or 30 daysafter the date of the Encounter. Date/Time Source Result Type Result - Unit Interpretation Reference Range Comment March 30, 2024 12:07 PM [facility] METHADONE PANEL (STL) Specimen Type: URINE Comment: The cut-off value for this test was laboratory developed and its performance characteristics confirmed by the [facility] laboratory thru method comparison with reference laboratory and medication chart review. The laboratory is regulated under CLIA as qualified to perform high-complexity testing. This test is used for clinical purposes in conjunction with other laboratory tests. Ordering Provider: JOSUE NGO Report Released Date/Time: March 30, 2024 11:53 AM Reporting Lab: [facility] [address] Performing Lab: [facility] [address] ETHANOL Negative mg/dL 0-20 AMPHET/METHAMPHE TAMINE Negative ng/mL COCAINE METABOLITES Negative ng/mL BENZODIAZEPINES (STL) Negative ng/mL CANNABINOIDS 94-POS ng/mL METHADONE Negative ng/mL OPIATES Negative ng/mL CREATININE URINE/OTHERS 108.2 mg/dL 63.0-166.0 OXYCODONE (PMOAF-AEM-FC) Negative ng/mL BUPRENORPHINE (STL-PB-MA) Negative ng/mL FENTANYL (STL-PB) Negative ng/mL March 30, 2024 12:02 PM [facility] TSH (MA-PB) Specimen Type: SERUM No comment entered. Ordering Provider: JOSUE NGO Report Released Date/Time: March 30, 2024 11:54 AM Reporting Lab: [facility] [address] Performing Lab: [facility] [address] TSH 1.066 u[IU]/mL 0.470 -5.00 0 March 30, 2024 12:02 PM [facility] HGA1C Specimen Type: BLOOD No comment entered. Ordering Provider: JOSUE NGO Report Released Date/Time: March 30, 2024 11:54 AM Reporting Lab: [facility] [address] Performing Lab: [facility] [address] HGA1C 4.8 4.0-6.0 March 30, 2024 12:02 PM [facility] COMPREHENSIVE METABOLIC PANEL Specimen Type: PLASMA Comment: No hemolysis noted. Ordering Provider: JOSUE NGO Report Released Date/Time: March 30, 2024 11:54 AM Reporting Lab: [facility] [address] Performing Lab: [facility] [address] CREATININE 0.78 mg/dL 0.70-1.30 UREA NITROGEN 7.5 [...] >60 March 30, 2024 12:02 PM [facility] CBC Specimen Type: BLOOD No comment entered. Ordering Provider: JOSUE NGO Report Released Date/Time: March 30, 2024 11:54 AM Reporting Lab: [facility] [address] Performing Lab: [facility] [address] WBC 7.1 10*3/uL 3.6-11.2 RBC 4.14 10*6/uL [...] 10*3/uL 0.00-0.20 Mar 15, 2024 12:35 PM [facility] BRAIN NATRIURETIC PEPTIDE Specimen Type: PLASMA No comment entered. Ordering Provider: Mari ALVRAEZ Report Released Date/Time: Mar 15, 2024 12:00 PM Reporting Lab: [facility] [address] [facility] [address] Performing Lab: [facility] [address] [facility] [address] BRAIN NATRIURETIC PEPTIDE 38.5 pg/mL 0-100 Mar 15, 2024 12:35 PM [facility] MAGNESIUM Specimen Type: PLASMA No comment entered. Ordering Provider: RADHA ZAMORA Report Released Date/Time: Mar 15, 2024 02:05 PM Reporting Lab: [facility] [address] [facility] [address] Performing Lab: [address] [address] MAGNESIUM 1.7 mg/dL 1.6-2.6 Mar 15, 2024 12:35 PM [facility] COVID-19 DIAGNOSTIC (FLU/RSV)(STL) Specimen Type: NASOPHARYNX [...] Mar 15, 2024 12:00 PM Reporting Lab: [address] [address] Performing Lab: [address] [address] INFLUENZA A Negative Negative INFLUENZA B Negative Negative COVID-19 (STL-PB) Not Detected Not Detected RSV (Cepheid) NEGATIVE Negative Mar 15, 2024 12:35 PM [facility] COMPREHENSIVE METABOLIC PANEL Specimen Type: PLASMA Comment: No hemolysis noted. Ordering Provider: Mari ALVAREZ Report Released Date/Time: Mar 15, 2024 12:00 PM Reporting Lab: [address] [address] Performing Lab: [address] [address] CREATININE 0.79 mg/dL 0.7-1.3 UREA NITROGEN 6.3 [...] 113.8 >60 Mar 15, 2024 12:35 PM [facility] CBC Specimen Type: BLOOD No comment entered. Ordering Provider: Mari ALVAREZ Report Released Date/Time: Mar 15, 2024 12:00 PM Reporting Lab: [address] [address] Performing Lab: [address] [address] WBC 6.4 10*3/uL 3.6-11.2 RBC 3.86 10*6/uL [...] 10*3/uL 0.00-0.20 Mar 15, 2024 12:35 PM [facility] TSH (MA-PB) Specimen Type: SERUM No comment entered. Ordering Provider: RADHA ZAMORA Report Released Date/Time: Mar 15, 2024 02:05 PM Reporting Lab: [place] [id number] [facility] [address] Performing Lab: [facility] [address] [facility] [address] TSH 1.227 u[IU]/mL 0.47-5 Vital Signs: All taken on the encounter date This section contains inpatient and outpatient Vital Signs collected on the date of the Encounter. Date/Time Temperature Pulse Blood Pressure Respiratory Rate SP02 Pain Height Weight Body Mass Index Source Mar 15, 2024 03:00 PM 64 117/88 [facility] Mar 15, 2024 02:00 PM 69 121/93 [facility] Mar 15, 2024 11:56 AM 89 135/87 18 7 [facility] N Social History: Smoking Status (Most current) and Tobacco Use (All prior to encounter date) This section includes the most current, and the historical, smoking and tobacco- related health factors from the [place] facility where the Encounter took place. Current Smoking Status This section includes the most current smoking, or tobacco-related health factor, from the [place] facility where the Encounter took place. Date/Time Current Smoking Status Comment Facil ity May 07, 2023 06:21 AM ORYX ADMIT TOBACCO SCREEN YES [facility] Tobacco Use History This section includes a history of the smoking, or tobacco-related health factors, that were collected on or before the date of the Encounter. The data comes from the [place] facility where the Encounter took place. Date/Time Smoking Status/Tobacco Use Comment F acility May 07, 2023 06:21 AM ORYX ADMIT TOBACCO USE CIGS LS 5D [facility] May 07, 2023 06:21 AM ORYX DAILY TOBACCO MANAGER LSW RECEIVED [facility] May 07, 2023 06:21 AM ORYX DAILY TOBACCO MEDS REFUSED [facility] Oct 27, 2013 02:51 PM QUIT TOBACCO >7 YEARS AGO [facility] Jan 07, 2013 10:01 AM CURRENT TOBACCO USER [facility] Jan 07, 2013 10:01 AM TOBACCO MEDS OFFER ED BUT DECLINED [facility] Sep 18, 2011 12:08 PM QUIT TOBACCO IN TH E LAST 12 MONTHS [facility] Jul 25, 2011 03:33 PM CURRENT TOBACCO USER [facility] Jul 20, 2010 10:35 AM QUIT TOBACCO IN TH E LAST 12 MONTHS [facility] Advance Directives: All historical and current Section Date Range: From patient's date of to the date document was created. This section includes ALL of a patient's completed or amended [place] Advance and Rescinded Directives. The entries below indicate that a directive exists for the patient, but an actual copy is not included with this document. The data comes from all [place] facilities. Date Advance Directives Provider Source May 07, 2023 ADVANCE DIRECTIVE DARLEEN ENRIQUEZ [facility]
--- OUTSIDE RECORDS SUMMARY | 2024-11-14 04:29 | XMS_ITS ---
Author Name [facility] [place] [facility] [place] Address [address] [place] [address] Care Team Providers Care Sports Specialist Name Role Phone JOSUE NGO Primary Care [...] PRESCRIPT ION RX PLAN Nov 17, 2018 [facility] [id number] [phone] Jose TABARES PATIENT [facility] RX PRESCRIPT ION [facility] Nov 17, 2018 [facility] [id number] [phone] Jose TABARES PATIENT [facility] Jose SECUR ITY Nov 17, 2018 [id number] [phone] Jose TABARES PATIENT [facility] Jose SECUR ITY Nov 17, 2018 [id number] [phone] Jose TABARES PATIENT [facility] PREFERRED PROVIDER ORGANIZAT ION (PPO) JOSE Garcia SECUR ITY Nov 17, 2018 [id number] [phone] Jose TABARES ICHANDIE PATIENT [facility] PREFERRED PROVIDER ORGANIZAT ION (PPO) JOSE FRIEDMAN Nov 17, 2018 [phone] Jose TABARES PATIENT Selected Encounter This section includes the information on record at [place] for the Encounter. Date/Time Encounter Type Encounter Description Reason Pro vider Source March 17, 2024 03:52 PM Outpatient Encounter ADMIN PAT ACTIVTIES (MASNONCT) IHE Encounter Template Text not used by [place] Plan of Treatment: Future Appointments (+ 6 months) and Future Tests (+/- 45 days) The Plan of Treatment section includes future care activities for the patient from all [place] treatmentfacilities. This section includes future appointments and future orders which are active, pending or scheduled. Future Appointments This section includes appointments that were scheduled to occur 6 months from the date of the Encounter, up to a maximum of 20 appointments. The data comes from all [place] treatment facilities. Appointment Date/Time Appointment Type Appointme nt Facility Name March 30, 2024 11:30 AM AMBULATORY - MEDICINE [facility] Apr 19, 2024 02:00 PM AMBULATORY - NEUROLOGY [facility] Apr 27, 2024 11:00 AM AMBULATORY - PSYCHIATRY [facility] Apr 28, 2024 01:00 PM AMBULATORY - MEDICINE [facility] May 14, 2024 03:30 PM AMBULATORY - MEDICINE [facility] May 31, 2024 01:30 PM AMBULATORY - SURGERY [facility] Jul 05, 2024 01:30 PM AMBULATORY - PSYCHIATRY [facility] Aug 06, 2024 12:30 PM AMBULATORY - PSYCHIATRY [facility] Aug 18, 2024 11:00 AM AMBULATORY - MEDICINE [facility] Sep 06, 2024 02:30 PM AMBULATORY - PSYCHIATRY [facility] Active, Pending, and Scheduled Orders This [...] Microbiology Order C&S URINE URINE,CLEAN CATCH WC [facility] Lab Results: +/- 30 days of the encounter This section includes the Chemistry and Hematology Lab Results on record with [place] for the patient. Radiology Reports and Pathology Reports are provided separately, in subsequent sections. Lab Results This section contains the Chemistry/Hematology Results that were resulted 30 days before or 30 daysafter the date of the Encounter. Date/Time Source Result Type Result - Unit Interpretation Reference Range Comment March 30, 2024 12:07 PM [facility] METHADONE PANEL (STL) Specimen Type: URINE Comment: The cut-off value for this test was laboratory developed and its performance characteristics confirmed by the [facility] laboratory thru method comparison with reference laboratory and medication chart review. The laboratory is regulated under CLIA as qualified to perform high-complexity testing. This test is used for clinical purposes in conjunction with other laboratory tests. Ordering Provider: JOSUE NGO Report Released Date/Time: March 30, 2024 11:53 AM Reporting Lab: [facility] [phone] Performing Lab: [facility] [phone] ETHANOL Negative mg/dL 0-20 AMPHET/METHAMPHE TAMINE Negative ng/mL COCAINE METABOLITES Negative ng/mL BENZODIAZEPINES (STL) Negative ng/mL CANNABINOIDS 94-POS ng/mL METHADONE Negative ng/mL OPIATES Negative ng/mL CREATININE URINE/OTHERS 108.2 mg/dL 63.0-166.0 OXYCODONE (OYVIE-TCS-GY) Negative ng/mL BUPRENORPHINE (STL-PB-MA) Negative ng/mL FENTANYL (STL-PB) Negative ng/mL March 30, 2024 12:02 PM [facility] TSH (MA-PB) Specimen Type: SERUM No comment entered. Ordering Provider: JOSUE NGO Report Released Date/Time: March 30, 2024 11:54 AM Reporting Lab: [facility] [phone] Performing Lab: [facility] [address] TSH 1.066 u[IU]/mL 0.470 -5.00 0 March 30, 2024 12:02 PM [facility] HGA1C Specimen Type: BLOOD No comment entered. Ordering Provider: JOSUE NGO Report Released Date/Time: March 30, 2024 11:54 AM Reporting Lab: [facility] [address] Performing Lab: [facility] [address] HGA1C 4.8 4.0-6.0 March 30, 2024 12:02 PM [facility] COMPREHENSIVE METABOLIC PANEL Specimen Type: PLASMA Comment: No hemolysis noted. Ordering Provider: JOSUE NGO Report Released Date/Time: March 30, 2024 11:54 AM Reporting Lab: [facility] [phone] Performing Lab: [facility] [address] CREATININE 0.78 mg/dL 0.70-1.30 UREA NITROGEN 7.5 [...] 114.19 >60 March 30, 2024 12:02 PM [facility] CBC Specimen Type: BLOOD No comment entered. Ordering Provider: JOSUE NGO Report Released Date/Time: March 30, 2024 11:54 AM Reporting Lab: [facility] [address] Performing Lab: [facility] [address] WBC 7.1 10*3/uL 3.6-11.2 RBC 4.14 10*6/uL [...] 10*3/uL 0.00-0.20 Mar 15, 2024 12:35 PM [facility] BRAIN NATRIURETIC PEPTIDE Specimen Type: PLASMA No comment entered. Ordering Provider: Mari ALVAREZ Report Released Date/Time: Mar 15, 2024 12:00 PM Reporting Lab: [facility] [address] [facility] [address] Performing Lab: [address] [address] BRAIN NATRIURETIC PEPTIDE 38.5 pg/mL 0-100 Mar 15, 2024 12:35 PM [facility] MAGNESIUM Specimen Type: PLASMA No comment entered. Ordering Provider: RADHA ZAOMRA Report Released Date/Time: Mar 15, 2024 02:05 PM Reporting Lab: [facility] [address] [address] Performing Lab: [address] [address] MAGNESIUM 1.7 mg/dL 1.6-2.6 Mar 15, 2024 12:35 PM [facility] COVID-19 DIAGNOSTIC (FLU/RSV)(STL) Specimen Type: NASOPHARYNX Comment: [...] Mar 15, 2024 12:00 PM Reporting Lab: [address] [address] Performing Lab: [address] [address] INFLUENZA A Negative Negative INFLUENZA B Negative Negative COVID-19 (STL-PB) Not Detected Not Detected RSV (Cepheid) NEGATIVE Negative Mar 15, 2024 12:35 PM [facility] COMPREHENSIVE METABOLIC PANEL Specimen Type: PLASMA Comment: No hemolysis noted. Ordering Provider: Mari ALVAREZ Report Released Date/Time: Mar 15, 2024 12:00 PM Reporting Lab: [address] [address] Performing Lab: [address] [address] CREATININE 0.79 mg/dL 0.7-1.3 UREA NITROGEN 6.3 [...] 113.8 >60 Mar 15, 2024 12:35 PM [facility] TSH (MA-PB) Specimen Type: SERUM No comment entered. Ordering Provider: RADHA ZAMORA Report Released Date/Time: Mar 15, 2024 02:05 PM Reporting Lab: [place] [phone] Performing Lab: [address] [address] TSH 1.227 u[IU]/mL 0.47-5 Mar 15, 2024 12:35 PM [facility] CBC Specimen Type: BLOOD No comment entered. Ordering Provider: Mari ALVAREZ Report Released Date/Time: Mar 15, 2024 12:00 PM Reporting Lab: [address] [address] Performing Lab: [address] [address] WBC 6.4 10*3/uL 3.6-11.2 RBC 3.86 10*6/uL [...] 10*3/uL 0.00-0.60 BASOPHILS, ABSOLUTE 0.09 10*3/uL 0.00-0.20 Social History: Smoking Status (Most current) and Tobacco Use (All prior to encounter date) This section includes the most current, and the historical, smoking and tobacco- related health factors from the [place] facility where the Encounter took place. Current Smoking Status This section includes the most current smoking, or tobacco-related health factor, from the [place] facility where the Encounter took place. Date/Time Current Smoking Status Comment Facil ity May 07, 2023 06:21 AM ORYX ADMIT TOBACCO SCREEN YES [facility] Tobacco Use History This section includes a history of the smoking, or tobacco-related health factors, that were collected on or before the date of the Encounter. The data comes from the [place] facility where the Encounter took place. Date/Time Smoking Status/Tobacco Use Comment F acility May 07, 2023 06:21 AM ORYX ADMIT TOBACCO USE CIGS LS 5D [facility] May 07, 2023 06:21 AM ORYX DAILY TOBACCO INDUSTRY CONSULTANT RECEIVED [facility] May 07, 2023 06:21 AM ORYX DAILY TOBACCO MEDS REFUSED [facility] Oct 27, 2013 02:51 PM QUIT TOBACCO >7 YEARS AGO [facility] Jan 07, 2013 10:01 AM CURRENT TOBACCO USER [facility] Jan 07, 2013 10:01 AM TOBACCO MEDS OFFER ED BUT DECLINED [facility] Sep 18, 2011 12:08 PM QUIT TOBACCO IN TH E LAST 12 MONTHS [facility] Jul 25, 2011 03:33 PM CURRENT TOBACCO USER [facility] Jul 20, 2010 10:35 AM QUIT TOBACCO IN TH E LAST 12 MONTHS [facility] Advance Directives: All historical and current Section Date Range: From patient's date of to the date document was created. This section includes ALL of a patient's completed or amended [place] Advance and Rescinded Directives. The entries below indicate that a directive exists for the patient, but an actual copy is not included with this document. The data comes from all [place] facilities. Date Advance Directives Provider Source May 07, 2023 ADVANCE DIRECTIVE DARLEEN ENRIQUEZ Jose [facility] Encounter Notes: All associated encounter notes This section contains the clinical notes associated to the Encounter. Date/Time Encounter Note(s) Provider Source March 17, 2024 03:52 PM ADMINISTRATIVE NOT E: LOCAL TITLE: CCC: SCHEDULING ADMINISTRATION STANDARD TITLE: ADMINISTRATIVE NOTE DATE OF NOTE: MARCH 17, 2024@15:52:19 ENTRY DATE: MARCH 17, 2024@15:52:19 AUTHOR: DEREK GRACIA COSIGNER: URGENCY: STATUS: COMPLETED Patient Demographics Patient Name: ELEONORA TABARES Patient Primary Phone: [phone] Patient Primary Address: [address] [place] [address] Patient : 1980 Patient Age: 43 Caller/Recipient Relation to Patient: Self Administrative Administrative Note Reason: Other Administrative Note Comments: PT MADE FOLLOW-UP FROM ER VISIT FOR PRIMARY: [facility] PCP 03/30/2024 @ 11:30AM; NOTED TO PRIMARY TEAM /loyda/ DEREK GRACIA Signed: 03/17/2024 15:52 Receipt Acknowledged By: 03/17/2024 15:58 /es/ HERIBERTO CONRAD BSN RN CCRN REGISTERED NURSE 03/30/2024 14:15 /loyda/ DEREK AN MSA [facility]
--- OUTSIDE RECORDS SUMMARY | 2024-11-14 04:30 | XMS_ITS | Encounter Summary ---
Author Name [facility] [place] [facility] [place] Address [address] [place] [address] Care Team Providers Care Personal Care Assistant Name Role Phone JOSUE NGO Primary Care [...] PRESCRIPT ION RX PLAN Nov 17, 2018 [facility] [id number] [phone] Jose TABARES PATIENT OPTUM RX PRESCRIPT ION [facility] Nov 17, 2018 [facility] [id number] [phone] Jose TABARES PATIENT [facility] WHE[facility] N SECUR ITY Nov 17, 2018 [id number] [phone] Jose TABARES PATIENT [facility] WHE[facility] N SECUR ITY Nov 17, 2018 [id number] [phone] Jose TABARES PATIENT [facility] CARE PREFERRED PROVIDER ORGANIZAT ION (PPO) WHELA N SECUR ITY Nov 17, 2018 [id number] [phone] Jose TABARES PATIENT [facility] PREFERRED PROVIDER ORGANIZAT ION (PPO) JOSE FRIEDMAN Nov 17, 2018 [id number] [phone] RAYSHAWNJose KILO PATIENT Selected Encounter This section includes the information on record at [place] for the Encounter. Date/Time Encounter Type Encounter Description Reason Pro vider Source Apr 28, 2024 03:22 PM Outpatient Encounter TELEPHONE MH IHE Encounter Template Text not used by [place] Plan of Treatment: Future Appointments (+ 6 months) and Future Tests (+/- 45 days) The Plan of Treatment section includes future care activities for the patient [facility] [place] [facility] This section includes future appointments and future orders which are active, pending or scheduled. Future Appointments This section includes appointments that were scheduled to occur 6 months from the date of the Encounter, up to a maximum of 20 appointments. The data comes from all [facility]. Appointment Date/Time Appointment Type Appointme nt Facility Name May 14, 2024 03:30 PM AMBULATORY - MEDICINE [facility] May 31, 2024 01:30 PM AMBULATORY - SURGERY [facility] Jul 05, 2024 01:30 PM AMBULATORY - PSYCHIATRY [facility] Aug 06, 2024 12:30 PM AMBULATORY - PSYCHIATRY [facility] Aug 18, 2024 11:00 AM AMBULATORY - MEDICINE [facility] Sep 06, 2024 02:30 PM AMBULATORY - PSYCHIATRY [facility] Sep 28, 2024 11:40 AM AMBULATORY - SURGERY [facility] Active, Pending, and Scheduled Orders This section includes a listing of several types of active, pending, and scheduled orders, including clinic medications orders, diagnostic test orders, procedure orders and consult orders; where the start date of the order is 45 days before the date of the Encounter or 45 days after the date of theEncounter. The data comes from all [facility]. Test Date/Time Test Type Test Details Facility Name Mar 15, 2024 12:00 PM Laboratory - Microbiology Order C&S URINE URINE,CLEAN CATCH WC [facility] Lab Results: +/- 30 days of the encounter This section includes the Chemistry and Hematology Lab Results on record with [place] for the patient. Radiology Reports and Pathology Reports are provided separately, in subsequent sections. Lab Results This section contains the Chemistry/Hematology Results that were resulted 30 days before or 30 daysafter the date of the Encounter. Date/Time Source Result Type Result - Unit Interpretation Reference Range Comment March 30, 2024 12:07 PM [facility] METHADONE PANEL (STL) Specimen Type: URINE Comment: The cut-off value for this test was laboratory developed and its performance characteristics confirmed by the [facility] laboratory thru method comparison with reference laboratory and medication chart review. The laboratory is regulated under CLIA as qualified to perform high-complexity testing. This test is used for clinical purposes in conjunction with other laboratory tests. Ordering Provider: JOSUE NGO Report Released Date/Time: March 30, 2024 11:53 AM Reporting Lab: [facility] [address] Performing Lab: [facility] [address] ETHANOL Negative mg/dL 0-20 AMPHET/METHAMPHE TAMINE Negative ng/mL COCAINE METABOLITES Negative ng/mL BENZODIAZEPINES (STL) Negative ng/mL CANNABINOIDS 94-POS ng/mL METHADONE Negative ng/mL OPIATES Negative ng/mL CREATININE URINE/OTHERS 108.2 mg/dL 63.0-166.0 OXYCODONE (BWEDF-BPV-FL) Negative ng/mL BUPRENORPHINE (STL-PB-MA) Negative ng/mL FENTANYL (STL-PB) Negative ng/mL March 30, 2024 12:02 PM [facility] TSH (MA-PB) Specimen Type: SERUM No comment entered. Ordering Provider: JOSUE NGO Report Released Date/Time: March 30, 2024 11:54 AM Reporting Lab: [facility] [address] Performing Lab: [facility] [address] TSH 1.066 u[IU]/mL 0.470 -5.00 0 March 30, 2024 12:02 PM [facility] HGA1C Specimen Type: BLOOD No comment entered. Ordering Provider: JOSUE NGO Report Released Date/Time: March 30, 2024 11:54 AM Reporting Lab: [facility] [place] [phone] Performing Lab: [facility] [address] HGA1C 4.8 4.0-6.0 March 30, 2024 12:02 PM [facility] COMPREHENSIVE METABOLIC PANEL Specimen Type: PLASMA Comment: No hemolysis noted. Ordering Provider: JOSUE NGO Report Released Date/Time: March 30, 2024 11:54 AM Reporting Lab: [facility] [place] [address] Performing Lab: [facility] [place] [address] CREATININE 0.78 mg/dL 0.70-1.30 UREA NITROGEN 7.5 [...] 114.19 >60 March 30, 2024 12:02 PM [facility] CBC Specimen Type: BLOOD No comment entered. Ordering Provider: JOSUE NGO Report Released Date/Time: March 30, 2024 11:54 AM Reporting Lab: [facility] [address] Performing Lab: [facility] [place] [address] WBC 7.1 10*3/uL 3.6-11.2 RBC 4.14 10*6/uL [...] and tobacco- related health factors from the [place] facility where the Encounter took place. Current Smoking Status This section includes the most current smoking, or tobacco-related health factor, from the [place] facility where the Encounter took place. Date/Time Current Smoking Status Comment Facil ity May 07, 2023 06:21 AM ORYX ADMIT TOBACCO SCREEN YES [facility] Tobacco Use History This section includes a history of the smoking, or tobacco-related health factors, that were collected on or before the date of the Encounter. The data comes from the [place] facility where the Encounter took place. Date/Time Smoking Status/Tobacco Use Comment F acility May 07, 2023 06:21 AM ORYX ADMIT TOBACCO USE CIGS LS 5D [facility] May 07, 2023 06:21 AM ORYX DAILY TOBACCO PET SITTER RECEIVED [facility] May 07, 2023 06:21 AM ORYX DAILY TOBACCO MEDS REFUSED [facility] Oct 27, 2013 02:51 PM QUIT TOBACCO >7 YEARS AGO [facility] Jan 07, 2013 10:01 AM CURRENT TOBACCO USER [facility] Jan 07, 2013 10:01 AM TOBACCO MEDS OFFER ED BUT DECLINED [facility] Sep 18, 2011 12:08 PM QUIT TOBACCO IN TH E LAST 12 MONTHS [facility] Jul 25, 2011 03:33 PM CURRENT TOBACCO USER [facility] Jul 20, 2010 10:35 AM QUIT TOBACCO IN TH E LAST 12 MONTHS [facility] Advance Directives: All historical and current Section Date Range: From patient's date of to the date document was created. This section includes ALL of a patient's completed or amended [place] Advance and Rescinded Directives. The entries below indicate that a directive exists for the patient, but an actual copy is not included with this document. The data comes from all [place] facilities. Date Advance Directives Provider Source May 07, 2023 ADVANCE DIRECTIVE DARLEEN ENRIQUEZ [facility] Encounter Notes: All associated encounter notes This section contains the clinical notes associated to the Encounter. Date/Time Encounter Note(s) Provider Source Apr 28, 2024 03:22 PM NURSING OUTPATIENT TRIAGE NOTE: LOCAL TITLE: [facility] MENTAL HEALTH OUTPATIENT TRIAGE [facility] STANDARD TITLE: NURSING OUTPATIENT TRIAGE NOTE DATE OF NOTE: APR 28, 2024@15:22 ENTRY DATE: APR 28, 2024@15:22:57 AUTHOR: KOREY CANDELARIA COSIGNER: URGENCY: STATUS: COMPLETED I called patient in regards to yesterday's appointment with Dr. Ortega and to let him know someone would be calling him to set up an appt with Dr. Cobos. He stated he doesn't think Dr. Ortega is a bad doctor, he was just very frustrated because he feels as if the [place] isn't doing enough to treat his problems. He repeated over and over during our 15-20 minute conversation that he has been in our system for years and years and They've tried me on lots of different medications but nothing they give me works and they never try to figure out what will. They just keep giving me Bupropion and Buspar but they don't work, perhaps there isn't anything that will help me . [facility] and that doctors just check boxes instead of treating people. He said its the definition of insanity to keep doing the same thing and expecting a different outcome. I asked him to make a note of which medications he had tried and what he liked or didn't like about each one so that Dr. Cobos could have a starting point. He said that was not his job, that was our job and that he had seen so many different providers so many times that he cannot remember what he was on. I scanned his chart while we were talking and didn't see many Psychiatry appointments. I offered that if we are going to find something that works well, we have to see him regularly so we can f/u to see how the medication is affecting him. He told me he has been coming for ten years and that should be enough time to figure it out. He asked if Dr. Cobos would at least start from scratch and research the meds he has tried so that he doesn't just check a box and give him something that has not been helpful. After the call I searched the patients chart for psychiatry notes. I found 5 psychiatry visits and two 2-day hospital stays since he began treatment at the [place]. His med lists from other appointments show he was not ever on his psychiatric medications for long. The medications I could find that he's been prescribed are: Trazadone Buspirone Bupropion Hydroxyzine Prazosin According to an early note, before coming to the [place] he was trialed on Sertraline, alprazolam, prazosin, and depakote. /loyda/ KOREY RECINOSN RN Registered Nurse Signed: 04/28/2024 15:52 Receipt Acknowledged By: 04/29/2024 07:29 /loyda/ Yasmany Cobos M.D. Staff Physician, Psychiatry 04/29/2024 07:09 /loyda/ ESAU LANIER Registered Nurse [facility]
--- OUTSIDE RECORDS SUMMARY | 2024-11-14 04:30 | XMS_ITS | Encounter Summary ---
Author Name [facility] [place] [facility] [place] Address [address] [place] [address] Care Team Providers Care Wellness Nurse Rn Name Role Phone JOSUE [employer] Primary Care [...] PRESCRIPT ION RX PLAN Nov 17, 2018 [facility] [id number] [phone] Jose TABARES PATIENT [employer] [facility] PRESCRIPT ION [facility] Nov 17, 2018 [facility] [id number] [phone] Jose TABARES PATIENT [facility] MENTAL HEALTH WHELA N SECUR ITY Nov 17, 2018 [id number] [phone] Jose TABARES PATIENT [facility] M[facility] WHELA N SECUR ITY Nov 17, 2018 [id number] [phone] [phone] Jose TABARES PATIENT [facility] PREFERRED PROVIDER ORGANIZAT ION (PPO) WHELA N SECUR ITY Nov 17, 2018 [id number] [phone] Jose TABARES PATIENT [facility] PREFERRED PROVIDER ORGANIZAT ION (PPO) JOSE FRIEDMAN Nov 17, 2018 [id number] [phone] Jose TABARES PATIENT Selected Encounter This section includes the information on record at [place] for the Encounter. Date/Time Encounter Type Encounter Description Reason Provider Source Apr 20, 2024 01:21 PM Outpatient Encounter TELEPHONE PRIMARY CARE FELIPA QUEZADA Encounter Template Text not used by [facility] Plan of Treatment: Future Appointments (+ 6 months) and Future Tests (+/- 45 days) The Plan of Treatment section includes future care activities for the patient from all [place] [facility] This section includes future appointments and future orders which are active, pending or scheduled. Future Appointments This section includes appointments that were scheduled to occur 6 months from the date of the Encounter, up to a maximum of 20 appointments. The data comes from all [facility]. Appointment Date/Time Appointment Type Appointme nt Facility Name Apr 27, 2024 11:00 AM AMBULATORY - PSYCHIATRY [facility] Apr 28, 2024 01:00 PM AMBULATORY - MEDICINE [facility] May 14, 2024 03:30 PM AMBULATORY - MEDICINE [facility] May 31, 2024 01:30 PM AMBULATORY - SURGERY [facility] Jul 05, 2024 01:30 PM AMBULATORY - PSYCHIATRY [facility] Aug 06, 2024 12:30 PM AMBULATORY - PSYCHIATRY [facility] Aug 18, 2024 11:00 AM AMBULATORY - MEDICINE [facility] Sep 06, 2024 02:30 PM AMBULATORY - PSYCHIATRY [facility] Sep 28, 2024 11:40 AM AMBULATORY - SURGERY [facility] Active, Pending, and Scheduled Orders This section includes a listing of several types of active, pending, and scheduled orders, including clinic medications orders, diagnostic test orders, procedure orders and consult orders; where the start date of the order is 45 days before the date of the Encounter or 45 days after the date of theEncounter. The data comes from all [facility]. Test Date/Time Test Type Test Details Facility Name Mar 15, 2024 12:00 PM Laboratory - Microbiology Order C&S URINE URINE,CLEAN CATCH WC [facility] Lab Results: +/- 30 days of the encounter This section includes the Chemistry and Hematology Lab Results on record with [place] for the patient. Radiology Reports and Pathology Reports are provided separately, in subsequent sections. Lab Results This section contains the Chemistry/Hematology Results that were resulted 30 days before or 30 daysafter the date of the Encounter. Date/Time Source Result Type Result - Unit Interpretation Reference Range Comment March 30, 2024 12:07 PM [facility] METHADONE PANEL (STL) Specimen Type: URINE Comment: The cut-off value for this test was laboratory developed and its performance characteristics confirmed by the [facility] laboratory thru method comparison with reference laboratory and medication chart review. The laboratory is regulated under CLIA as qualified to perform high-complexity testing. This test is used for clinical purposes in conjunction with other laboratory tests. Ordering Provider: JOSUE NGO Report Released Date/Time: March 30, 2024 11:53 AM Reporting Lab: [facility] [id number] Performing Lab: [facility] [id number] ETHANOL Negative mg/dL 0-20 AMPHET/METHAMPHE TAMINE Negative ng/mL COCAINE METABOLITES Negative ng/mL BENZODIAZEPINES (STL) Negative ng/mL CANNABINOIDS 94-POS ng/mL METHADONE Negative ng/mL OPIATES Negative ng/mL CREATININE URINE/OTHERS 108.2 mg/dL 63.0-166.0 OXYCODONE (TDCZK-[id number]-DF) Negative ng/mL BUPRENORPHINE (STL-PB-MA) Negative ng/mL FENTANYL (STL-PB) Negative ng/mL March 30, 2024 12:02 PM [facility] TSH (MA-PB) Specimen Type: SERUM No comment entered. Ordering Provider: JOSUE NGO Report Released Date/Time: March 30, 2024 11:54 AM Reporting Lab: [facility] [id number] Performing Lab: [facility] [address] [facility] [address] TSH 1.066 u[IU]/mL 0.470 -5.00 0 March 30, 2024 12:02 PM [facility] HGA1C Specimen Type: BLOOD No comment entered. Ordering Provider: JOSUE NGO Report Released Date/Time: March 30, 2024 11:54 AM Reporting Lab: [facility] [address] Performing Lab: [facility] [address] [facility] [address] HGA1C 4.8 4.0-6.0 March 30, 2024 12:02 PM [facility] COMPREHENSIVE METABOLIC PANEL Specimen Type: PLASMA Comment: No hemolysis noted. Ordering Provider: JOSUE NGO Report Released Date/Time: March 30, 2024 11:54 AM Reporting Lab: [facility] [address] [facility] [address] Performing Lab: [facility] [address] [facility] [address] CREATININE 0.78 mg/dL 0.70-1.30 UREA NITROGEN 7.5 [...] 114.19 >60 March 30, 2024 12:02 PM [facility] CBC Specimen Type: BLOOD No comment entered. Ordering Provider: JOSUE NGO Report Released Date/Time: March 30, 2024 11:54 AM Reporting Lab: [facility] [address] Performing Lab: [facility] [address] WBC 7.1 10*3/uL 3.6-11.2 RBC 4.14 10*6/uL [...] and tobacco- related health factors from the [place] facility where the Encounter took place. Current Smoking Status This section includes the most current smoking, or tobacco-related health factor, from the [place] facility where the Encounter took place. Date/Time Current Smoking Status Comment Facil ity May 07, 2023 06:21 AM [facility] ADMIT TOBACCO SCREEN YES [facility] Tobacco Use History This section includes a history of the smoking, or tobacco-related health factors, that were collected on or before the date of the Encounter. The data comes from the [place] facility where the Encounter took place. Date/Time Smoking Status/Tobacco Use Comment F acility May 07, 2023 06:21 AM [facility] ADMIT TOBACCO USE CIGS LS 5D [facility] May 07, 2023 06:21 AM [facility] DAILY TOBACCO FILLER SHREDDER HELPER RECEIVED [facility] May 07, 2023 06:21 AM [facility] DAILY TOBACCO MEDS REFUSED [facility] Oct 27, 2013 02:51 PM QUIT TOBACCO >7 YEARS AGO [facility] Jan 07, 2013 10:01 AM CURRENT TOBACCO USER [facility] Jan 07, 2013 10:01 AM TOBACCO MEDS OFFER ED BUT DECLINED [facility] Sep 18, 2011 12:08 PM QUIT TOBACCO IN TH E LAST 12 MONTHS [facility] Jul 25, 2011 03:33 PM CURRENT TOBACCO USER [facility] Jul 20, 2010 10:35 AM QUIT TOBACCO IN TH E LAST 12 MONTHS [facility] Advance Directives: All historical and current Section Date Range: From patient's date of to the date document was created. This section includes ALL of a patient's completed or amended [place] Advance and Rescinded Directives. The entries below indicate that a directive exists for the patient, but an actual copy is not included with this document. The data comes from all [place] facilities. Date Advance Directives Provider Source May 07, 2023 ADVANCE DIRECTIVE DARLEEN ENRIQUEZ [facility] Encounter Notes: All associated encounter notes This section contains the clinical notes associated to the Encounter. Date/Time Encounter Note(s) Provider Source Apr 20, 2024 01:21 PM NURSING NOTE: LOCAL TITLE: V15 PACT TELEPHONE CONTACT NOTE [facility] TITLE: NURSING NOTE DATE OF NOTE: APR 20, 2024@13:21 ENTRY DATE: APR 20, 2024@13:21:42 AUTHOR: FELIPA QUEZADA EXP COSIGNER: URGENCY: STATUS: COMPLETED Patient/Other contacted: Patient Patient Identifiers : Full Name Date of Other: Call to the after alert from PCP: Bilateral carpal tunnel syndrome as per EMG study on April 19, 2024: Plan for Ortho consult done Patient states that Ortho has already scheduled him an appointment so he was aware. is also asking for his test results from March lab work and I reviewed the test results letter and send it in the mail. Contact provided Primary Care phone number and encouraged to call if any questions or concerns. Review that after hours nurse line ext. [phone] and emergency room are available 09/06 for patient use. Contact understanding verified by teach back: Yes Total time spent on phone: / FELIPA QUEZADA REGISTERED NURSE Signed: 04/20/2024 13:30 FELIPA QUEZADA [facility]
--- OUTSIDE RECORDS SUMMARY | 2024-11-14 04:30 | XMS_ITS | Encounter Summary ---
Author Name [facility] [place] Address [address] [place] [address] Care Team Providers Care Finishing Machine Tender Name Role Phone JOSUE SCHILLING Primary Care [...] 17, 2018 [facility] [id number] [phone] Jose TABARES PATIENT OPTUM RX PRESCRIPT ION [facility] Nov 17, 2018 [facility] [id number] [phone] Jose TABARES PATIENT [facility] Nov 17, 2018 [id number] [phone] Jose TABARES PATIENT [facility] [facility] Nov 17, 2018 [id number] [phone] Jose TABARES PATIENT [facility] PREFERRED PROVIDER ORGANIZAT ION (PPO) WHEJEROD Garcia SECUR ITY Nov 17, 2018 [id number] [phone] Jose TABARES PATIENT [facility] PREFERRED PROVIDER ORGANIZAT ION (PPO) JOSE FRIEDMAN Nov 17, 2018 [id number] [phone] RAYSHAWNJose KILO PATIENT Selected Encounter This section includes the information on record at [place] for the Encounter. Date/Time Encounter Type Encounter Description Reason Provider Source Apr 28, 2024 01:00 PM OFFICE O/P EST MOD 30 MIN PRIMARY CARE/MEDICINE ICD-10-CM R52 Pain, unspecified KODWANI,JOSUE IHE Encounter Template Text not used by [place] Assessments - Encounter Diagnoses This section includes the primary and secondary diagnoses documented for the Encounter. Date/Time Primary/Secondary Diagnosis Diagnosis Name Provider Source Apr 28, 2024 01:52 PM PRIMARY Pain, unspecified [facility] Apr 28, 2024 01:52 PM SECONDARY Alcohol use, unspecified with intoxication, uncomplicated [facility] Apr 28, 2024 01:52 PM SECONDARY Post-traumatic stress disorder, unspecified KODWANI,[facility] Apr 28, 2024 01:52 PM SECONDARY Tobacco use KODWANI,[facility] Plan of Treatment: Future Appointments (+ 6 months) and Future Tests (+/- 45 days) The Plan of Treatment section includes future care activities for the patient from all [place] treatmentfacilities. This section includes future appointments and future orders which are active, pending or scheduled. Future Appointments This section includes appointments that were scheduled to occur 6 months from the date of the Encounter, up to a maximum of 20 appointments. The data comes from all [place] treatment facilities. Appointment Date/Time Appointment Type Appointme nt Facility Name May 14, 2024 03:30 PM [facility]BULATORY [facility] May 31, 2024 01:30 PM AMBULATORY - SURGERY [facility] Jul 05, 2024 01:30 PM AMBULATORY - PSYCHIATRY [facility] Aug 06, 2024 12:30 PM AMBULATORY - PSYCHIATRY [facility] Aug 18, 2024 11:00 AM AMBULATORY - MEDICINE [facility] Sep 06, 2024 02:30 PM AMBULATORY - PSYCHIATRY [facility] Sep 28, 2024 11:40 AM AMBULATORY - SURGERY [facility] Ramsey ALICIA [facility] Active, Pending, and Scheduled Orders This section includes a listing of several types of active, pending, and scheduled orders, including clinic medications orders, diagnostic test orders, procedure orders and consult orders; where the start date of the order is 45 days before the date of the Encounter or 45 days after the date of theEncounter. The data comes from all [place] treatment facilities. Test Date/Time Test Type Test Details Facility Name Mar 15, 2024 12:00 PM Laboratory - Microbiology Order C&S URINE URINE,CLEAN CATCH WC [facility] Lab Results: +/- 30 days of the encounter This section includes the Chemistry and Hematology Lab Results on record with [place] for the patient. Radiology Reports and Pathology Reports are provided separately, in subsequent sections. Lab Results This section contains the Chemistry/Hematology Results that were resulted 30 days before or 30 daysafter the date of the Encounter. Date/Time Source Result Type Result - Unit Interpretation Reference Range Comment March 30, 2024 12:07 PM [facility] METHADONE PANEL (STL) Specimen Type: URINE Comment: The cut-off value for this test was laboratory developed and its performance characteristics confirmed by the [facility] laboratory thru method comparison with reference laboratory and medication chart review. The laboratory is regulated under CLIA as qualified to perform high-complexity testing. This test is used for clinical purposes in conjunction with other laboratory tests. Ordering Provider: JOSUE SCHILLING Report Released Date/Time: March 30, 2024 11:53 AM Reporting Lab: [facility] [id number] Performing Lab: [facility] [phone] ETHANOL Negative mg/dL 0-20 AMPHET/METHAMPHE TAMINE Negative ng/mL COCAINE METABOLITES Negative ng/mL BENZODIAZEPINES (STL) Negative ng/mL CANNABINOIDS 94-POS ng/mL METHADONE Negative ng/mL OPIATES Negative ng/mL CREATININE URINE/OTHERS 108.2 mg/dL 63.0-166.0 OXYCODONE ([id number]) Negative ng/mL BUPRENORPHINE (STL-PB-MA) Negative ng/mL FENTANYL (STL-PB) Negative ng/mL March 30, 2024 12:02 PM [facility] TSH (MA-PB) Specimen Type: SERUM No comment entered. Ordering Provider: JOSUE SCHILLING Report Released Date/Time: March 30, 2024 11:54 AM Reporting Lab: [facility] [place] [id number] Performing Lab: [facility] [address] [place] [address] TSH 1.066 u[IU]/mL 0.470 -5.00 0 March 30, 2024 12:02 PM [facility] HGA1C Specimen Type: BLOOD No comment entered. Ordering Provider: JOSUE SCHILLING Report Released Date/Time: March 30, 2024 11:54 AM Reporting Lab: [facility] [place] [phone] Performing Lab: [facility] [address] [place] [phone] HGA1C 4.8 4.0-6.0 March 30, 2024 12:02 PM [facility] COMPREHENSIVE METABOLIC PANEL Specimen Type: PLASMA Comment: No hemolysis noted. Ordering Provider: JOSUE SCHILLING Report Released Date/Time: March 30, 2024 11:54 AM Reporting Lab: [facility] [place] [id number] Performing Lab: [facility] [place] [phone] CREATININE 0.78 mg/dL 0.70-1.30 UREA NITROGEN 7.5 [...] 114.19 >60 March 30, 2024 12:02 PM [facility] CBC Specimen Type: BLOOD No comment entered. Ordering Provider: JOSUE SCHILLING Report Released Date/Time: March 30, 2024 11:54 AM Reporting Lab: [facility] [phone] Performing Lab: [facility] [phone] WBC 7.1 10*3/uL 3.6-11.2 RBC 4.14 10*6/uL [...] and tobacco- related health factors from the [place] facility where the Encounter took place. Current Smoking Status This section includes the most current smoking, or tobacco-related health factor, from the [place] facility where the Encounter took place. Date/Time Current Smoking Status Comment Facil ity Jun 05, 2023 11:00 AM VA-TOBACCO USER SOME DAYS [facility] Tobacco Use History This section includes a history of the smoking, or tobacco-related health factors, that were collected on or before the date of the Encounter. The data comes from the [place] facility where the Encounter took place. 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 [facility] Jun 05, 2023 11:00 AM VA-TOBACCO USE MED NO [facility] Jun 05, 2023 11:00 AM VA-TOBACCO USER SOME DAYS [facility] April 16, 2022 03:00 PM VA-TOBACCO FORMER USER [facility] April 16, 2022 03:00 PM VA-TOBACCO QUIT < 1 YEAR [facility] Nov 14, 2020 09:38 AM VA-TOBACCO USE 1 TO < 5 YEARS [facility] Nov 14, 2020 09:38 AM VA-TOBACCO USE ADVICE [facility] Nov 14, 2020 09:38 AM 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 [facility] Nov 14, 2020 09:38 AM VA-TOBACCO USE MED NO [facility] Nov 14, 2020 09:38 AM VA-TOBACCO USE [place] 30 MIN OF WAKEUP [facility] Nov 14, 2020 09:38 AM VA-TOBACCO USER EVERY DAY [facility] Feb 08, 2019 10:08 AM VA-TOBACCO FORMER USER [facility] Feb 08, 2019 10:08 AM VA-TOBACCO QUIT 1 TO < 5 YRS [facility] Oct 17, 2017 03:25 PM CURRENT TOBACCO USER [facility] Oct 17, 2017 03:25 PM CURRENT TOBACCO US ER (NOT READY TO QUIT) [facility] Oct 17, 2017 03:25 PM TOBACCO CESSATION REFERRAL DECLINED [facility] Oct 17, 2017 03:25 PM TOBACCO MEDS OFFER ED BUT DECLINED [facility] Oct 17, 2017 03:25 PM TOBACCO USER OFFERED MEDS [facility] Jul 02, 2017 03:19 PM CURRENT TOBACCO USER [facility] Advance Directives: All historical and current Section Date Range: From patient's date of to the date document was created. This section includes ALL of a patient's completed or amended [place] Advance and Rescinded Directives. The entries below indicate that a directive exists for the patient, but an actual copy is not included with this document. The data comes from all [place] facilities. Date Advance Directives Provider Source May 07, 2023 ADVANCE DIRECTIVE DARLEEN ENRIQUEZ [facility] Encounter Notes: All associated encounter notes This section contains the clinical notes associated to the Encounter. Date/Time Encounter Note(s) Provider Source Apr 28, 2024 01:53 PM ADDENDUM: LOCAL TITLE: Addendum STANDARD TITLE: ADDENDUM DATE OF NOTE: APR 28, 2024@13:53:30 ENTRY DATE: APR 28, 2024@13:53:31 AUTHOR: JOSUE SCHILLING EXP COSIGNER: URGENCY: STATUS: COMPLETED RTC 2 weeks video visit /loyda/ Josue Schilling MD Staff Physician Signed: 04/28/2024 13:53 Receipt Acknowledged By: 04/29/2024 10:31 /loyda/ DALLAS YOUNG MSA --- Original Document --- 04/28/24 PRIMARY CARE VIDEO CONNECT STL: Medicine Provider Note Modality of Care: Clinical Video Telehealth Visit conducted by Clinical Video Telehealth. Patient/surrogate provided verbal consent for video telehealth. Patient location confirmed. Emergency number confirmed. Patient Contact Details: Best contact number for backup communication with patient: Patient ESTABLISHED PATIENT : 43 yoM h/o HTN, PTSD, MDD, SHIRA, h/o chronic EtOH abuse/dependence, h/o multiple TBIs (per [facility] H[facility] 05/31/21 and [facility] evaluation 2009), CLBP, insomnia, ADHD. CC / HPI : routine f/u video visit. is complaining of numbness and tingling in both hands. Plan to see orthopedic for carpal tunnel on May 31, 2024. also requesting mental health provider visit because yesterday's mental health provider visit did not go well. Denies any other complaint today Allergies: NKDA [...] no headache Physical exam : GENERAL: pleasant NEUROLOGICAL: not in acute distress ASSESSMENT/PLAN: The patient's most recent test results and medication list were reviewed in detail with the patient. - bilateral carpal tunnel syndrome. Plan to see Ortho. Message sent Ortho for early appointment. Start on meloxicam and Lyrica for now. - Elevated BP : plan for low salt diet - PTSD / Depression / anxiety / ADHD /insomnia: No SI, no HI. Will send message for mental health appointment. - ETHO Use : counselling was done again - Tobacco use: counseling was done. RTC 2 weeks video visit pt is asymtomatic now If any Chest pain, ,SOB, headache, dizziness, Blurring of vision,or or worsening of symptoms call 911 or go to ER. Patient understands to call nurse coordinator if any new concerns, and go to the emergency room for any acute problem(s). Patient voices understanding and agrees with plan of care. Medication Reconciliation Opt STL: I have reviewed the patient's medication list (including active outpatient prescriptions dispensed from this [facility] (local) and dispensed from another VA or DoD facility (remote) as well as inpatient orders (local pending and active), local clinic medications, locally documented non-VA medications, and local prescriptions that have or been discontinued in the past 90 days.) with the patient and/or his/her care-smart grid engineer. Handwritten corrections, additions and/or deletions were made to the list, as appropriate. Corrected Outpatient Medication List was provided to the patient/caregiver. /loyda/ Josue Schilling MD Staff Physician Signed: 04/28/2024 13:53 04/29/2024 ADDENDUM STATUS: UNSIGNED You may not VIEW this UNSIGNED Addendum. [facility] Apr 28, 2024 01:07 PM TELEHEALTH NOTE: LOCAL TITLE: PRIMARY CARE VIDEO CONNECT STL STANDARD TITLE: TELEHEALTH NOTE DATE OF NOTE: APR 28, 2024@13:07 ENTRY DATE: APR 28, 2024@13:07:29 AUTHOR: JOSUE SCHILLING EXP COSIGNER: URGENCY: STATUS: COMPLETED PRIMARY CARE VIDEO CONNECT STL Has ADDENDA Medicine Provider Note Modality of Care: Clinical Video Telehealth Visit conducted by Clinical Video Telehealth. Patient/surrogate provided verbal consent for video telehealth. Patient location confirmed. Emergency number confirmed. Patient Contact Details: Best contact number for backup communication with patient: Patient ESTABLISHED PATIENT : 43 yoM h/o HTN, PTSD, MDD, SHIRA, h/o chronic EtOH abuse/dependence, h/o multiple TBIs (per [facility] 05/[facility]/21 and [facility] evaluation 2009), CLBP, insomnia, ADHD. CC / HPI : routine f/u video visit. is complaining of numbness and tingling in both hands. Plan to see orthopedic for carpal tunnel on May 31, 2024. [place] also requesting mental health provider visit because yesterday's mental health provider visit did not go well. Denies any other complaint today Allergies: NKDA [...] no headache Physical exam : GENERAL: pleasant NEUROLOGICAL: not in acute distress ASSESSMENT/PLAN: The patient's most recent test results and medication list were reviewed in detail with the patient. - bilateral carpal tunnel syndrome. Plan to see Ortho. Message sent Ortho for early appointment. Start on meloxicam and Lyrica for now. - Elevated BP : plan for low salt diet - PTSD / Depression / anxiety / ADHD /insomnia: No SI, no HI. Will send message for mental health appointment. - ETHO Use : counselling was done again - Tobacco use: counseling was done. RTC 2 weeks video visit pt is asymtomatic now If any Chest pain, ,SOB, headache, dizziness, Blurring of vision,or or worsening of symptoms call 911 or go to ER. Patient understands to call nurse coordinator if any new concerns, and go to the emergency room for any acute problem(s). Patient voices understanding and agrees with plan of care. Medication Reconciliation Opt STL: I have reviewed the patient's medication list (including active outpatient prescriptions dispensed from this [facility] (local) and dispensed from another VA or DoD facility (remote) as well as inpatient orders (local pending and active), local clinic medications, locally documented non-VA medications, and local prescriptions that have or been discontinued in the past 90 days.) with the patient and/or his/her care-smart grid engineer. Handwritten corrections, additions and/or deletions were made to the list, as appropriate. Corrected Outpatient Medication List was provided to the patient/caregiver. /loyda/ Josue Schilling MD Staff Physician Signed: 04/28/2024 13:53 04/28/2024 ADDENDUM STATUS: COMPLETED RTC 2 weeks video visit /saranya Schilling MD Staff Physician Signed: 04/28/2024 13:53 Receipt Acknowledged By: 04/29/2024 10:31 /loyda/ DALLAS YOUNG MSA 04/29/2024 ADDENDUM STATUS: COMPLETED SCHEDULED [facility] PACT E PCP 05/14/24@1530PM /saranya YOUNG MSA Signed: 04/29/2024 10:32 JOSUE SCHILLING [facility]
--- OUTSIDE RECORDS SUMMARY | 2024-11-14 04:30 | XMS_ITS | Encounter Summary ---
Author Name [facility] [place] Address [address] [place] [address] Care Team Providers Care Composition Roofer Name Role Phone JOSUE [employer] Primary Care [...] PRESCRIPT ION RX PLAN Nov 17, 2018 [facility] [id number] [phone] Jose TABARESMichael PATIENT [facility] RX PRESCRIPT ION [facility] Nov 17, 2018 [facility] [id number] Jose TABARES PATIENT [facility] MENTAL HEALTH [facility] N SECUR ITY Nov 17, 2018 [id number] [phone] Jose TABARES PATIENT [facility] M[facility]AL [facility] N SECUR ITY Nov 17, 2018 [id number] [phone] Jose TABARES PATIENT [facility] PREFERRED PROVIDER ORGANIZAT ION (PPO) [facility] N SECUR ITY Nov 17, 2018 [id number] [phone] Jose TABARES PATIENT [facility] PREFERRED PROVIDER ORGANIZAT ION (PPO) JOSE FRIEDMAN Nov 17, 2018 [id number] [phone] Jose TABARES PATIENT Selected Encounter This section includes the information on record at [place] for the Encounter. Date/Time Encounter Type Encounter Description Reason Pro vider Source IHE Encounter Template Text not used by [place] Advance Directives: All historical and current Section Date Range: From patient's date of to the date document was created. This section includes ALL of a patient's completed or amended [place] Advance and Rescinded Directives. The entries below indicate that a directive exists for the patient, but an actual copy is not included with this document. The data comes from all [place] facilities. Date Advance Directives Provider Source May 07, 2023 ADVANCE DIRECTIVE DARLEEN ENRIQUEZ [facility]
--- OUTSIDE RECORDS SUMMARY | 2024-11-14 04:30 | XMS_ITS ---
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 MENT[facility] WHELA Jose SECUR ITY Nov 17, 2018 [id number] [phone] Jose TABARES PATIENT [facility] PREFERRED PROVIDER ORGANIZAT ION (PPO) JOSE Garcia SECUR ITY Nov 17, 2018 [id number] [phone] Jose TABARESS PATIENT [facility] PREFERRED PROVIDER ORGANIZAT ION (PPO) JOSE FRIEDMAN Nov 17, 2018 [id number] [phone] RAYSHAWNJose KILO PATIENT Selected Encounter This section includes the information on record at [place] for the Encounter. Date/Time Encounter Type Encounter Description Reason Pro vider Source Apr 27, 2024 11:00 AM PSYTX W PT 45 MINUTES PSYCHOGERIATRIC - INDIVIDUAL ICD-10-CM F43.11 Post-traumat ic stress disorder, acute ABICHANDANI,LA CHMAN IHE Encounter Template Text not used by [place] Assessments - Encounter Diagnoses This section includes the primary and secondary diagnoses documented for the Encounter. Date/Time Primary/Secondary Diagnosis Diagnosis Name Provider Source Apr 27, 2024 02:40 PM PRIMARY Post-traumatic stress disorder, acute ABICHANDANI,LA SHIRLENE [facility] Apr 27, 2024 02:40 PM SECONDARY Major depressive disorder, recurrent, unspecified [facility] Plan of Treatment: Future Appointments (+ 6 months) and Future Tests (+/- 45 days) The Plan of Treatment section includes future care activities for the patient from all [place] treatmentfacilities. This section includes future appointments and future orders which are active, pending or scheduled. Future Appointments This section includes appointments that were scheduled to occur 6 months from the date of the Encounter, up to a maximum of 20 appointments. The data comes from all [place] treatment facilities. Appointment Date/Time Appointment Type Appointme nt Facility Name Apr 28, 2024 01:00 PM AMBULATORY - MEDICINE [facility] May 14, 2024 03:30 PM AMBULATORY - MEDICINE [facility] May 31, 2024 01:30 PM AMBULATORY - SURGERY [facility] Jul 05, 2024 01:30 PM AMBULATORY - PSYCHIATRY [facility] Aug 06, 2024 12:30 PM AMBULATORY - PSYCHIATRY [facility] Aug 18, 2024 11:00 AM AMBULATORY - MEDICINE [facility] Sep 06, 2024 02:30 PM AMBULATORY - PSYCHIATRY [facility] Sep 28, 2024 11:40 AM AMBULATORY - SURGERY [facility] Active, Pending, and Scheduled Orders This section includes a listing of several types of active, pending, and scheduled orders, including clinic medications orders, diagnostic test orders, procedure orders and consult orders; where the start date of the order is 45 days before the date of the Encounter or 45 days after the date of theEncounter. The data comes from all [place] treatment facilities. Test Date/Time Test Type Test Details Facility Name Mar 15, 2024 12:00 PM Laboratory - Microbiology Order C&S URINE URINE,CLEAN CATCH WC [facility] Lab Results: +/- 30 days of the encounter This section includes the Chemistry and Hematology Lab Results on record with [place] for the patient. Radiology Reports and Pathology Reports are provided separately, in subsequent sections. Lab Results This section contains the Chemistry/Hematology Results that were resulted 30 days before or 30 daysafter the date of the Encounter. Date/Time Source Result Type Result - Unit Interpretation Reference Range Comment March 30, 2024 12:[address] [facility] METHADONE PANEL (STL) Specimen Type: URINE Comment: The cut-off value for this test was laboratory developed and its performance characteristics confirmed by the [facility] laboratory thru method comparison with reference laboratory and medication chart review. The laboratory is regulated under CLIA as qualified to perform high-complexity testing. This test is used for clinical purposes in conjunction with other laboratory tests. Ordering Provider: JOSUE NGO Report Released Date/Time: March 30, 2024 11:53 AM Reporting Lab: [facility] [phone] Performing Lab: [facility] [phone] ETHANOL Negative mg/dL 0-20 AMPHET/METHAMPHE TAMINE Negative ng/mL COCAINE METABOLITES Negative ng/mL BENZODIAZEPINES (STL) Negative ng/mL CANNABINOIDS 94-POS ng/mL METHADONE Negative ng/mL OPIATES Negative ng/mL CREATININE URINE/OTHERS 108.2 mg/dL 63.0-166.0 OXYCODONE (SWCUK-[facility]) Negative ng/mL BUPRENORPHINE (STL-PB-MA) Negative ng/mL FENTANYL (STL-PB) Negative ng/mL March 30, 2024 12:[address] [facility] TSH (MA-PB) Specimen Type: SERUM No comment entered. Ordering Provider: JOSUE NGO Report Released Date/Time: March 30, 2024 11:54 AM Reporting Lab: [facility] [place] [address] Performing Lab: [facility] [place] [phone] TSH 1.066 u[IU]/mL 0.470 -5.00 0 March 30, 2024 12:[address] [facility] HGA1C Specimen Type: BLOOD No comment entered. Ordering Provider: JOSUE NGO Report Released Date/Time: March 30, 2024 11:54 AM Reporting Lab: [facility] [address] [place] [address] Performing Lab: [facility] [place] [address] HGA1C 4.8 4.0-6.0 March 30, 2024 12:[address] [facility] COMPREHENSIVE METABOLIC PANEL Specimen Type: PLASMA Comment: No hemolysis noted. Ordering Provider: JOSUE NGO Report Released Date/Time: March 30, 2024 11:54 AM Reporting Lab: [facility] [address] [place] [address] Performing Lab: [facility] [place] [address] CREATININE 0.78 mg/dL 0.70-1.30 UREA NITROGEN 7.5 [...] March 30, 2024 12:[address] [facility] CBC Specimen Type: BLOOD No comment entered. Ordering Provider: JOSUE NGO Report Released Date/Time: March 30, 2024 11:54 AM Reporting Lab: [facility] [phone] Performing Lab: [facility] [facility] [phone] WBC 7.1 10*3/uL 3.6-11.2 RBC 4.14 10*6/uL [...] and tobacco- related health factors from the [place] facility where the Encounter took place. Current Smoking Status This section includes the most current smoking, or tobacco-related health factor, from the [place] facility where the Encounter took place. Date/Time Current Smoking Status Comment Facil ity Jun 05, 2023 11:00 AM VA-TOBACCO USER SOME DAYS [facility] Tobacco Use History This section includes a history of the smoking, or tobacco-related health factors, that were collected on or before the date of the Encounter. The data comes from the [place] facility where the Encounter took place. Date/Time Smoking Status/Tobacco Use Comment F acility Jun 05, 2023 11:00 AM VA-TOBACCO USE 5 TO [address] [facility] Jun 05, 2023 11:00 AM VA-TOBACCO USE ADVICE 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 Jun 05, 2023 11:00 AM VA-TOBACCO USE MED NO [facility] Jun 05, 2023 11:00 AM VA-TOBACCO USER SOME DAYS [facility] April 16, 2022 03:00 PM VA-TOBACCO FORMER USER [facility] April 16, 2022 03:00 PM VA-TOBACCO QUIT < [address] [facility] Nov 14, 2020 09:38 AM VA-TOBACCO USE 1 TO < [address] [facility] Nov 14, 2020 09:38 AM VA-TOBACCO USE ADVICE 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 Nov 14, 2020 09:38 AM VA-TOBACCO USE MED NO [facility] Nov 14, 2020 09:38 AM VA-TOBACCO USE WI 30 MIN OF WAKEUP [facility] Nov 14, 2020 09:38 AM VA-TOBACCO USER EVERY DAY [facility] Feb 08, 2019 10:08 AM VA-TOBACCO FORMER USER [facility] Feb 08, 2019 10:08 AM VA-TOBACCO QUIT 1 TO < [address] [facility] Oct 17, 2017 03:25 PM CURRENT TOBACCO USER [facility] Oct 17, 2017 03:25 PM CURRENT TOBACCO US ER (NOT READY TO QUIT) [facility] Oct 17, 2017 03:25 PM TOBACCO CESSATION REFERRAL DECLINED [facility] Oct 17, 2017 03:25 PM TOBACCO MEDS OFFER ED BUT DECLINED [facility] Oct 17, 2017 03:25 PM TOBACCO USER OFFERED MEDS [facility] Jul 02, 2017 03:19 PM CURRENT TOBACCO USER [facility] Advance Directives: All historical and current Section Date Range: From patient's date of to the date document was created. This section includes ALL of a patient's completed or amended [place] Advance and Rescinded Directives. The entries below indicate that a directive exists for the patient, but an actual copy is not included with this document. The data comes from all [place] facilities. Date Advance Directives Provider Source May 07, 2023 ADVANCE DIRECTIVE DARLEEN ENRIQUEZ [facility] Encounter Notes: All associated encounter notes This section contains the clinical notes associated to the Encounter. Date/Time Encounter Note(s) Provider Source Apr 27, 2024 01:04 PM PSYCHIATRY NOTE: LOCAL TITLE: PSYCHIATRY [facility] STANDARD TITLE: PSYCHIATRY NOTE DATE OF NOTE: APR 27, 2024@13:04 ENTRY DATE: APR 27, 2024@13:04:40 AUTHOR: ANNETTE NOLEN EXP COSIGNER: URGENCY: STATUS: COMPLETED [facility] - MEDICATION MANAGEMENT Name..................ELEONORA TEMPLE Age...................43 Sex...................MAL E SSN................... Today's Date..........APR 27, 2024 Service Connection....Service Connected: Yes (90%) ALLERGIES: Patient has answered NKA OUTPATIENT MEDICATIONS: Active Outpatient Medications (excluding Supplies): No Medications Found PROBLEM LIST: 1) Low back pain (SNOMED CT 843078873) 2) Traumatic brain injury with no loss of consciousness (SNOMED CT 551570608) 3) Acute posttraumatic stress disorder following combat (SNOMED CT 810413428) 4) Concussion (ICD-9-CM 850.9) 5) Anxiety * (ICD-9-CM 300.00/300.09) 6) Depression * (ICD-9-CM 311./300.4) 7) Attention-deficit hyperactivity disorder * 8) Unemployment 9) Palpitations (ICD-9-CM 785.1) 10) Routine General Medical Examination at a Health Care Facility * (ICD-9-CM V70.0) 11) Lumbosacral radiculopathy (SNOMED CT 9648915) 12) Tobacco use 13) Pain 14) Abnormal blood pressure 15) Chronic depression 16) Admits alcohol use 17) Insomnia 18) Alcohol abuse 19) Hypokalemia VITAL SIGNS: Pulse.................89 (03/30/2024 11:23) Temperature...........98 F [36.7 C] (03/30/2024 11:23) Blood Pressure........128/88 (03/30/2024 11:23) Pain..................6 (03/30/2024 11:23) Weight................172 .6 lb [78.29 kg] (03/30/2024 11:23) Patient Weight History - Last Four 1. 172.6 lbs. / 78.3 kg. on MARCH 30, 2024@11:23:25 2. 172.0 lbs. / 78.0 kg. on JUN 05, 2023@11:05:05 3. 169.5 lbs. / 76.9 kg. on JAN 31, 2023@14:41:04 4. 178.0 lbs. / 80.7 kg. on NOV 05, 2022@13:53:55 LAB VALUES: CBC WBC 7.1 10*3/uL 03/30/2024 12:02 RBC 4.14 10*6/uL 03/30/2024 12:02 HGB 13.6 g/dL 03/30/2024 12:02 HCT 38.0 L % 03/30/2024 12:02 MCV 91.8 fL 03/30/2024 12:02 MCH 32.9 pg 03/30/2024 12:02 MCHC 35.8 g/dL 03/30/2024 12:02 RDW 11.5 L % 03/30/2024 12:02 PLT 306 10*3/uL 03/30/2024 12:02 MPV 8.8 fL 03/30/2024 12:02 NEUTROPHILS, AUTO % 44 % 03/30/2024 12:02 LYMPHOCYTES, AUTO % 43 % 03/30/2024 12:02 MONOCYTES, AUTO % 9 % 03/30/2024 12:02 EOSINOPHILS, AUTO % 4 % 03/30/2024 12:02 BASOPHILS, AUTO % 1 % 03/30/2024 12:02 NEUTROPHILS, ABSOLUTE 3.08 10*3/uL 03/30/2024 12:02 LYMPHOCYTES, ABSOLUTE 3.01 10*3/uL 03/30/2024 12:02 MONOCYTES, ABSOLUTE 0.63 10*3/uL 03/30/2024 12:02 EOSINOPHILS, ABSOLUTE 0.26 10*3/uL 03/30/2024 12:02 BASOPHILS, ABSOLUTE 0.07 10*3/uL 03/30/2024 12:02 NEUTROPHILS 41 % 05/06/2023 20:27 LYMPHOCYTES 47 % 05/06/2023 20:27 MONOCYTES 3 % 05/06/2023 20:27 EOSINOPHILS 5 % 05/06/2023 20:27 BASOPHILS 3 % 05/06/2023 20:27 ATYPICAL LYMPHOCYTES 1 % 05/06/2023 20:27 ANISOCYTOSIS 1+ 05/06/2023 20:27 POIKILOCYTOSIS 2+ 05/06/2023 20:27 MACROCYTOSIS 1+ 05/06/2023 20:27 TARGET CELLS 2+ 05/06/2023 20:27 CHEM 7 SODIUM 139 mEq/L 03/30/2024 12:02 POTASSIUM 3.8 mEq/L 03/30/2024 12:02 CHLORIDE 103 mEq/L 03/30/2024 12:02 UREA NITROGEN 7.5 L mg/dL 03/30/2024 12:02 CREATININE 0.78 mg/dL 03/30/2024 12:02 CALCIUM 9.5 mg/dL 03/30/2024 12:02 CARBON DIOXIDE 27 mEq/L 03/30/2024 12:02 GLUCOSE 104 H mg/dL 03/30/2024 12:02 EGFR (CKD-EPI 2020) 114.19 03/30/2024 12:02 HEPATIC PANEL No data available TRIGLYCERIDES...____ CHOLESTEROL.....No CHOLESTEROL EO data found TSH.............TSH 1.066 uIU/mL 03/30/2024 12:02 LITHIUM.........____ VALPROIC ACID...____ DIAGNOSIS BEING TREATED THIS VISIT: PTSD CHRONIC WITH ANXIETY NOS. ANY COMPLAINTS/PROBLEMS...... .Yes HE WAS SEEN BY ME ONCE LAT YEAR WHEN I WAS [facility] AND HE WAS THEN FOLLOWED UP WITH PCP. HE WAS SENT TO ME TODAY IN [facility] AND HE WAS TO SEE DR. VARMA IN [facility] [place] THAT DID NOT HAPPEN AFTER I LEFT THAT CLINIC. HE WAS NOT ON [facility] AND I CALLED HIM ON . HE SAID HE THOUGHTS APPOINTMENT WAS FOR TOMORROW AND HE FINALLY CONNECTED ON [facility]. HIS PRESENTATION TODAY WAS QUITE INTERESTING. HE WENT ON AND ON ABOUT [facility] NOT HAVING DOCTORS WHO CARE FOR VETERANS. THEY JUSTGIVE MEDICINES AND SEND THEM AWAY. HE KEPT REPEATING THAT ITS NOT MY FAULT REPEATEDLY BUT WOULD NOT LET ME KNOW WHAT HE IS REALLY WANTING FROM ME.HE WENT ON FOR ALOMOST 35 MINUTES AND WHATEVER I OFFERED HIM WAS NOT GOOD ENOUGH AND THAT HE HAS BEEN TREATED BY [facility] FOR MORE THAN 20 YEARS AND HE IS NOT GETTING ANYWHERE. I GAVE HIM INFORMATION OF ALL THE THINGS WE HAVE TO OFFER HIM LIKES, MEDS,ONE ON ONE THERAPY, [facility], INPATIENT CARE, ENVELOPE STUFFER PROGRAMS, WHOLE HEALTH CARE ETC ETC. BUT HE WAS FOCUSSED ON TEACHING US HOW TO CARE FOR VETERANS AND THAT DOCTORS AND STAFF DONT CARE FOR VETERANS. I KNOW ITS NOT YOUR FAULT BUT WHAt al has to offer is not good enough for us veterans . I GAVE HIM LOTS OF TIME TO VENTILATE, TRIED BY [facility] TO SUPPORT HISM, OFFERS HIM MEDS BUT HE WAS FOCUSSED ON ALL THE BES T HE HAS TAKEN OR NOT TAKEN HAS DONE NOTHING FOR HIM. OFFERED TO HAVE THERPAIST MEET HIM FOR TREATMENT PLANNING AND HE RULED THAT OUT. WANTS SYSTEM CHANGED AND WANTS PEOPLE WHO CARE OF VETERANS SHOULD BE WORKING IN [facility]. TOLD HIM TO [facility] SUGGESTIONS TO HIGHER UP INCLUDING US GOVERNEMNT AND HE BURSTED OUT I GOT YOU, YOU ARE RECORDED ON TAPE AND ... HE CALLED ME YOU STUPID DUMB DOCTR AN UNG UP. COULD NOT FINISH FULL NOTE. MANY OTHER DETAILS AND IN THE NOTE OF 01/16/2023. REST OF THIS NOTE IS BASED ON HIS OLD RECORDS.NO MEDS AND NO FOLLOW UP . HE WILL BE SEEKING HELP IN [facility] SINCE I HAVE MOVED ON TO ANOTHER CLINIC. HE HAS STOPPED SEEING HIS THERAPIST ON OUTSIDE [facility] WHO WAS GIVING HIM SUPPORT FOR 2 YEARS WITHOUT CHARGING ME .HE HAS [facility] THRU [facility] ALSO.HE WAS AGAINST ANSWERING SAME QUESTIONS TOO MANY TIMES . HIS PRESENTATION WAS WORST THIS TIME THAN ON JANUARY OF 2023. I REQUESTED MY RN EVASN LANIER TO CALL HIM AND CHECK ON HIM ALSO TO MAKE SURE HE IS GETTING SERVICES FROM US. HE WAS AGAINST WHATE EVER I WAS OFFERING HIM AN DJUST WANTED TO COMPLAIN TODAY.HE MIGHT BENEFIT FROM [facility] SKILLED NURSING PTSD TREATMENT IF HE AGREES TO THAT.HE HAS REQUESTED CHANGE OF DOCTORS AND HE WILL BE DISCUSSED IN STAFF MEETING TOMORROW. PTSD SYMPTOMS: SMOKES...Yes DRINKS...No DRUGS....No MOOD: ANGRY AND WAS TRYING TO SET ME UP. I GOT YOU.. CALLED ME NAMES AND HUNG UP. ACTIVITIES: DEFERRED CONTACT: Evans Lanier GOAL: STABILIS EMOOD ANY MEDICATION SIDE EFFECT....No APPETITE................. .....Good SLEEP.................... .....Poor This provider engaged the in shared decision-making/treatment planning. MENTAL STATUS: MOOD/AFFECT.............. ...Abnormal IRRITATED AND ANGRY WITH [facility] SYSTEM. HE GARDINER DME NAMES AND HUNG UP DELUSIONS/HALLUCINATIONS. ...Absent DEFERRED SUICIDAL/AGGRESSIVE...... ...Absent DEFERRED ALERT & ORIENTED X3 WITH GOOD CONCENTRATION........Yes DEFERRED COMMENTS: None CASUALY DRESSED AGITTED WHITE MALE WITH DIS-SATISFACTION WITH [facility] SYSTEM MEDICATION CHANGE.............No DID NOT ACCEPT ANY MEDS AND HE IS NOT SATISFIED WITH SYSTEM. SUPPORTIVE PSYCHOTHERAPY......Yes HE GARDINER DME NAMES, HE RECORDED ME AND WILL TEACH ME HOW TO CARE FOR VETERANS AND HUND UP NO FOLLOW UP WITH ME PLEASE. CHELLEF:No previous GAF entered. Current Gaf: /loyda/ Annette Nolen M.D. Staff Physician, Psychiatry [facility] [place] Signed: 04/27/2024 14:40 ANNETTE NOLEN [facility]
--- OUTSIDE RECORDS SUMMARY | 2024-11-14 04:30 | XMS_ITS | Encounter Summary ---
Author Name [facility] [place] [facility] [place] Address [address] [place] [address] Care Team Providers Care Factory Maintenance Technician Name Role Phone JOSUE SCHILLING Primary Care [...] PRESCRIPT ION UHEAL TH Nov 17, 2018 [facility] [id number] [phone] Jose TABARES PATIENT [facility] RX PRESCRIPT ION RX PLAN Nov 17, 2018 [facility] [id number] [phone] Jose TABARES PATIENT [facility] HEALTH WHELA N SECUR ITY Nov 17, 2018 [id number] [id number] [phone] Jose TABARES PATIENT [facility] MENTAL HEALTH WHELA N SECUR ITY Nov 17, 2018 [id number] [phone] Jose TABARES PATIENT [facility] PREFERRED PROVIDER ORGANIZAT ION (PPO) WHELA N SECUR ITY Nov 17, 2018 [id number] [phone] Jose TABARES PATIENT [facility] PREFERRED PROVIDER ORGANIZAT ION (PPO) JOSE FRIEDMAN Nov 17, 2018 [id number] [phone] Jose TABARES PATIENT Selected Encounter This section includes the information on record at [place] for the Encounter. Date/Time Encounter Type Encounter Description Reason Pro vider Source Apr 27, 2024 02:46 PM Outpatient Encounter TELEPHONE/ANCILLARY IHE Encounter Template Text not used by [facility] Plan of Treatment: Future Appointments (+ 6 months) and Future Tests (+/- 45 days) The Plan of Treatment section includes future care activities for the patient from all [place] [facility]. This section includes future appointments and future orders which are active, pending or scheduled. Future Appointments This section includes appointments that were scheduled to occur 6 months from the date of the Encounter, up to a maximum of 20 appointments. The data comes from all [facility]. Appointment Date/Time Appointment Type Appointme nt Facility Name Apr 28, 2024 01:00 PM AMBULATORY - MEDICINE [facility] May 14, 2024 03:30 PM AMBULATORY - MEDICINE [facility] May 31, 2024 01:30 PM AMBULATORY - SURGERY [facility] Jul 05, 2024 01:30 PM AMBULATORY - PSYCHIATRY [facility] Aug 06, 2024 12:30 PM AMBULATORY - PSYCHIATRY [facility] Aug 18, 2024 11:00 AM AMBULATORY - MEDICINE [facility] Sep 06, 2024 02:30 PM AMBULATORY - PSYCHIATRY [facility] Sep 28, 2024 11:40 AM AMBULATORY - SURGERY [facility] Active, Pending, and Scheduled Orders This section includes a listing of several types of active, pending, and scheduled orders, including clinic medications orders, diagnostic test orders, procedure orders and consult orders; where the start date of the order is 45 days before the date of the Encounter or 45 days after the date of theEncounter. The data comes from all [facility]. Test Date/Time Test Type Test Details Facility Name Mar 15, 2024 12:00 PM Laboratory - Microbiology Order C&S URINE URINE,CLEAN CATCH [facility] Lab Results: +/- 30 days of [...] Range Comment March 30, 2024 12:07 PM [facility] METHADONE PANEL (STL) Specimen Type: URINE Comment: The cut-off value for this test was laboratory developed and its performance characteristics confirmed by the [facility] laboratory thru method comparison with reference laboratory and medication chart review. The laboratory is regulated under CLIA as qualified to perform high-complexity testing. This test is used for clinical purposes in conjunction with other laboratory tests. Ordering Provider: JOSUE SCHILLING Report Released Date/Time: March 30, 2024 11:53 AM Reporting Lab: [facility] [id number] Performing Lab: [facility] [id number] ETHANOL Negative mg/dL 0-20 AMPHET/METHAMPHE TAMINE Negative ng/mL COCAINE METABOLITES Negative ng/mL BENZODIAZEPINES (STL) Negative ng/mL CANNABINOIDS 94-POS ng/mL METHADONE Negative ng/mL OPIATES Negative ng/mL CREATININE URINE/OTHERS 108.2 mg/dL 63.0-166.0 OXYCODONE (MVBAS-BVY-LK) Negative ng/mL BUPRENORPHINE (STL-PB-MA) Negative ng/mL FENTANYL (STL-PB) Negative ng/mL March 30, 2024 12:02 PM [facility] TSH (MA-PB) Specimen Type: SERUM No comment entered. Ordering Provider: JOSUE SCHILLING Report Released Date/Time: March 30, 2024 11:54 AM Reporting Lab: [facility] [id number] Performing Lab: [facility] [id number] TSH 1.066 u[IU]/mL 0.470 -5.00 0 March 30, 2024 12:02 PM [facility] HGA1C Specimen Type: BLOOD No comment entered. Ordering Provider: JOSUE SCHILLING Report Released Date/Time: March 30, 2024 11:54 AM Reporting Lab: [facility] [id number] Performing Lab: [facility] [id number] HGA1C 4.8 4.0-6.0 March 30, 2024 12:02 PM [facility] COMPREHENSIVE METABOLIC PANEL Specimen Type: PLASMA Comment: No hemolysis noted. Ordering Provider: JOSUE SCHILLING Report Released Date/Time: March 30, 2024 11:54 AM Reporting Lab: [facility] [id number] Performing Lab: [facility] [id number] CREATININE 0.78 mg/dL 0.70-1.30 UREA NITROGEN 7.5 [...] 114.19 >60 March 30, 2024 12:02 PM [facility] CBC Specimen Type: BLOOD No comment entered. Ordering Provider: JOSUE SCHILLING Report Released Date/Time: March 30, 2024 11:54 AM Reporting Lab: [facility] [id number] Performing Lab: [facility] [id number] WBC 7.1 10*3/uL 3.6-11.2 RBC 4.14 10*6/uL [...] 06:21 AM ORYX ADMIT TOBACCO SCREEN YES [facility] Tobacco Use History This section includes a history of the smoking, or tobacco-related health factors, that were collected on or before the date of the Encounter. The data comes from the [place] facility where the Encounter took place. Date/Time Smoking Status/Tobacco Use Comment F acility May 07, 2023 06:21 AM ORYX ADMIT TOBACCO USE CIGS LS 5D [facility] May 07, 2023 06:21 AM ORYX DAILY TOBACCO AUTO BODY MAN RECEIVED [facility] May 07, 2023 06:21 AM ORYX DAILY TOBACCO MEDS REFUSED [facility] Oct 27, 2013 02:51 PM QUIT TOBACCO >7 YEARS AGO [facility] Jan 07, 2013 10:01 AM CURRENT TOBACCO USER [facility] Jan 07, 2013 10:01 AM TOBACCO MEDS OFFER ED BUT DECLINED [facility] Sep 18, 2011 12:08 PM QUIT TOBACCO IN TH E LAST 12 MONTHS [facility] Jul 25, 2011 03:33 PM CURRENT TOBACCO USER [facility] Jul 20, 2010 10:35 AM QUIT TOBACCO IN TH E LAST 12 MONTHS [facility] Advance Directives: All historical and current [...] May 07, 2023 ADVANCE DIRECTIVE DARLEEN ENRIQUEZ [facility] Encounter Notes: All associated encounter notes This section contains the clinical notes associated to the Encounter. Date/Time Encounter Note(s) Provider Source Apr 28, 2024 01:47 PM ADDENDUM: LOCAL TITLE: Addendum STANDARD TITLE: ADDENDUM DATE OF NOTE: APR 28, 2024@13:47:39 ENTRY DATE: APR 28, 2024@13:47:41 AUTHOR: JOSUE SCHILLING EXP COSIGNER: URGENCY: STATUS: COMPLETED is requesting call from mental health clinic for visit. /loyda/ Josue Schilling MD Staff Physician Signed: 04/28/2024 13:49 Receipt Acknowledged By: 04/28/2024 14:40 /loyda/ KOREY RECINOSN RN Registered Nurse === --- Original Document --- 04/27/24 MENTAL HEALTH AGING RESOURCES TEAM STL: was scheduled to have a VVC with former MH provider and appt did not go well. [place] was cursing, threatening and calling names to the provider. Provider was unable to complete assessment due to the 's behaviors. This publications writer called to discern what he was expecting and what his current needs were. Initially thanked publications writer for calling him and following up. Stated he was very grateful. This publications writer listened for approx 15-20 min while morena repeatedly stated, They seem to only want to throw medications at you . Once stopped speaking this publications writer was able to educate the on the roles of the different providers at the [place]. verbalized understanding. also verbalized he is not sure what exactly he needs but does agree that he probably needs medication intervention for his MH. was assured that should he determine he would also benefit from therapy of some kind that that could also be resourced. By end of conversation the stated he did not feel the appt went badly today due to the provider's fault but his and something he said just hit him the wrong way and then it was downhill from there. Feels that he would benefit from a provider change under the cirecumstances. This publications writer assured we would have our meeting tomorrow and someone would reach back out regarding the request for change of provider. At the end of the call the again profusely thanked this publications writer for following up and began rving that he knows the staff at the [place] really care. [place] seemed more jovial and pleasant and call ended amicably. After the conversation and with further investigation, it was noted that the was scheduled in error with this provider and was supposed to be scheduled with someone in [facility]. The [facility] was made aware and will call back for warm handoff and has re-entered the correct RTC for the correct provider. HAS has also been made aware of the incident today and will wait to call for scheduling until the [facility] has completed her call. Will add signers to this note for informational purposes. /loyda/ ESAU LANIER Registered Nurse [facility] Signed: 04/27/2024 14:59 Receipt Acknowledged By: 04/27/2024 15:05 /es/ Annette Carrion M.D. Staff Physician, Psychiatry [facility] 04/28/2024 11:05 /es/ ОЛЬГА ORTIZ advanced pediatric medical assistant * AWAITING SIGNATURE * BERTHA FLORES 04/27/2024 16:37 /es/ YUE VIRGEN ADVANCED [facility] 04/27/2024 16:05 /es/ KOREY CANDELARIA BSN RN Registered Nurse * AWAITING SIGNATURE * NAEL SANTOS ASHA [facility] Apr 27, 2024 02:46 PM PSYCHIATRY OUTPATI ENT NOTE: LOCAL TITLE: MENTAL HEALTH AGING RESOURCES TEAM [facility] STANDARD TITLE: PSYCHIATRY OUTPATIENT NOTE DATE OF NOTE: APR 27, 2024@14:46 ENTRY DATE: APR 27, 2024@14:46:20 AUTHOR: ESAU LANIER COSIGNER: URGENCY: STATUS: COMPLETED MENTAL HEALTH AGING RESOURCES TEAM [facility] Has ADDENDA [place] was scheduled to have a VVC with former MH provider and appt did not go well. [place] was cursing, threatening and calling names to the provider. Provider was unable to complete assessment due to the 's behaviors. This publications writer called to discern what he was expecting and what his current needs were. Initially thanked publications writer for calling him and following up. Stated he was very grateful. This publications writer listened for approx 15-20 min while veteren repeatedly stated, They seem to only want to throw medications at you . Once stopped speaking this publications writer was able to educate the on the roles of the different providers at the [place]. [place] verbalized understanding. also verbalized he is not sure what exactly he needs but does agree that he probably needs medication intervention for his MH. was assured that should he determine he would also benefit from therapy of some kind that that could also be resourced. By end of conversation the stated he did not feel the appt went badly today due to the provider's fault but his and something he said just hit him the wrong way and then it was downhill from there. Feels that he would benefit from a provider change under the cirecumstances. This publications writer assured we would have our meeting tomorrow and someone would reach back out regarding the request for change of provider. At the end of the call the again profusely thanked this publications writer for following up and began rving that he knows the staff at the [place] really care. [place] seemed more jovial and pleasant and call ended amicably. After the conversation and with further investigation, it was noted that the was scheduled in error with this provider and was supposed to be scheduled with someone in [facility]. The TC was made aware and will call back for warm handoff and has re-entered the correct RTC for the correct provider. HAS has also been made aware of the incident today and will wait to call for scheduling until the [facility] has completed her call. Will add signers to this note for informational purposes. /loyda/ ESAU LANIER Registered Nurse [facility] Signed: 04/27/2024 14:59 Receipt Acknowledged By: 04/27/2024 15:05 /es/ Annette Carrion M.D. Staff Physician, Psychiatry [facility] 04/28/2024 11:05 /es/ ОЛЬГА ORTIZ advanced pediatric medical assistant 04/29/2024 13:50 /es/ BERTHA FLORES SUPERVISORY [employer]NER 04/27/2024 16:37 /es/ YUE VIRGEN ADVANCED LEATHER SKINNER 04/27/2024 16:05 /es/ KOREY RECINOSN RN Registered Nurse 04/30/2024 15:20 /es/ NAEL SANTOS ADVANCED MEDICAL SUPORT WORKERS COMPENSATION COORDINATOR 04/28/2024 ADDENDUM STATUS: COMPLETED [place] is requesting call from mental health clinic for visit. /es/ Josue Schilling MD Staff Physician Signed: 04/28/2024 13:49 Receipt Acknowledged By: 04/28/2024 14:40 /es/ KOREY RECINOSN RN Registered Nurse ESAU LANIER [facility]
--- OUTSIDE RECORDS SUMMARY | 2024-11-14 04:30 | XMS_ITS | Encounter Summary ---
Author Name [facility] [place] Address [address] [place] [address] Care Team Providers Care Greeting Card Maker Name Role Phone JOSUE NGO Primary Care [...] PRESCRIPT ION UHEAL TH Nov 17, 2018 [facility] [id number] [phone] Jose TABARES PATIENT [facility] RX PRESCRIPT ION RX PLAN Nov 17, 2018 [facility] [id number] [phone] Jose TABARES PATIENT [facility] HEALTH WHELA N SECUR ITY Nov 17, 2018 [id number] [phone] Jose TABARSE PATIENT [facility] MENTAL HEALTH WHELA N SECUR ITY Nov 17, 2018 [id number] [phone] Jose TABARES PATIENT [facility] PREFERRED PROVIDER ORGANIZAT ION (PPO) WHELA N SECUR ITY Nov 17, 2018 [id number] [phone] Jose TABARES PATIENT [facility] PREFERRED PROVIDER ORGANIZAT ION (PPO) JOSE FRIEDMAN Nov 17, 2018 [id number] [phone] Jose TABARES PATIENT Selected Encounter This section includes the information on record at [place] for the Encounter. Date/Time Encounter Type Encounter Description Reason Pro vider Source Apr 28, 2024 04:31 PM Outpatient Encounter TELEPHONE/ANCILLARY IHE Encounter Template Text not used by [place] Plan of Treatment: Future Appointments (+ 6 months) and Future Tests (+/- 45 days) The Plan of Treatment section includes future care activities for the patient from all [place] [facility]. This section includes future appointments and future orders which are active, pending or scheduled. Future Appointments This section includes appointments that were scheduled to occur 6 months from the date of the Encounter, up to a maximum of 20 appointments. The data comes from all [facility]. Appointment Date/Time Appointment Type Appointme nt Facility Name May 14, 2024 03:30 PM AMBULATORY - MEDICINE [facility] May 31, 2024 01:30 PM AMBULATORY - SURGERY [facility] Jul 05, 2024 01:30 PM AMBULATORY - PSYCHIATRY [facility] Aug 06, 2024 12:30 PM AMBULATORY - PSYCHIATRY [facility] Aug 18, 2024 11:00 AM AMBULATORY - MEDICINE [facility] Sep 06, 2024 02:30 PM AMBULATORY - PSYCHIATRY [facility] Sep 28, 2024 11:40 AM AMBULATORY - SURGERY [facility] Active, Pending, and Scheduled Orders This section includes a listing of several types of active, pending, and scheduled orders, including clinic medications orders, diagnostic test orders, procedure orders and consult orders; where the start date of the order is 45 days before the date of the Encounter or 45 days after the date of theEncounter. The data comes from all [facility]. Test Date/Time Test Type Test Details Facility Name Mar 15, 2024 12:00 PM Laboratory - Microbiology Order C&S URINE URINE,CLEAN CATCH [facility] Lab Results: +/- 30 [...] Range Comment March 30, 2024 12:07 PM [facility] METHADONE PANEL (STL) Specimen Type: URINE Comment: The cut-off value for this test was laboratory developed and its performance characteristics confirmed by the [facility] laboratory thru method comparison with reference laboratory and medication chart review. The laboratory is regulated under CLIA as qualified to perform high-complexity testing. This test is used for clinical purposes in conjunction with other laboratory tests. Ordering Provider: JOSUE NGO Report Released Date/Time: March 30, 2024 11:53 AM Reporting Lab: [facility] [id number] Performing Lab: [facility] [id number] ETHANOL Negative mg/dL 0-20 AMPHET/METHAMPHE TAMINE Negative ng/mL COCAINE METABOLITES Negative ng/mL BENZODIAZEPINES (STL) Negative ng/mL CANNABINOIDS 94-POS ng/mL METHADONE Negative ng/mL OPIATES Negative ng/mL CREATININE URINE/OTHERS 108.2 mg/dL 63.0-166.0 OXYCODONE (NDPCS-MFZ-TO) Negative ng/mL BUPRENORPHINE (STL-PB-MA) Negative ng/mL FENTANYL (STL-PB) Negative ng/mL March 30, 2024 12:02 PM [facility] TSH (MA-PB) Specimen Type: SERUM No comment entered. Ordering Provider: JOSUE NGO Report Released Date/Time: March 30, 2024 11:54 AM Reporting Lab: [facility] [id number] Performing Lab: [facility] [id number] TSH 1.066 u[IU]/mL 0.470 -5.00 0 March 30, 2024 12:02 PM [facility] HGA1C Specimen Type: BLOOD No comment entered. Ordering Provider: JOSUE NGO Report Released Date/Time: March 30, 2024 11:54 AM Reporting Lab: [facility] [id number] Performing Lab: [facility] [id number] HGA1C 4.8 4.0-6.0 March 30, 2024 12:02 PM [facility] COMPREHENSIVE METABOLIC PANEL Specimen Type: PLASMA Comment: No hemolysis noted. Ordering Provider: JOSUE NGO Report Released Date/Time: March 30, 2024 11:54 AM Reporting Lab: [facility] [id number] Performing Lab: [facility] [place] [phone] CREATININE 0.78 mg/dL 0.70-1.30 UREA NITROGEN 7.5 [...] 114.19 >60 March 30, 2024 12:02 PM [facility] CBC Specimen Type: BLOOD No comment entered. Ordering Provider: JOSUE NGO Report Released Date/Time: March 30, 2024 11:54 AM Reporting Lab: [facility] [id number] Performing Lab: [facility] [place] [phone] WBC 7.1 10*3/uL 3.6-11.2 RBC 4.14 10*6/uL [...] took place. Date/Time Current Smoking Status Comment Devorah friedman Jun 05, 2023 11:00 AM VA-TOBACCO USER SOME DAYS [facility] Tobacco Use History This section includes a history of the smoking, or tobacco-related health factors, that were collected on or before the date of the Encounter. The data comes from the [place] facility where the Encounter took place. Date/Time Smoking Status/Tobacco Use Comment F acility Jun 05, 2023 11:00 AM VA-TOBACCO USE 5 TO 15 YEARS [facility] Jun 05, 2023 11:00 AM VA-TOBACCO USE ADVICE [facility] Jun 05, 2023 11:00 AM VA-TOBACCO USE COMMUNICATIONS OFFICER NO [facility] Jun 05, 2023 11:00 AM VA-TOBACCO USE MED NO [facility] Jun 05, 2023 11:00 AM VA-TOBACCO USER SOME DAYS [facility] April 16, 2022 03:00 PM VA-TOBACCO FORMER USER [facility] April 16, 2022 03:00 PM VA-TOBACCO QUIT < 1 YEAR [facility] Nov 14, 2020 09:38 AM VA-TOBACCO USE 1 TO < 5 YEARS [facility] Nov 14, 2020 09:38 AM VA-TOBACCO USE ADVICE [facility] Nov 14, 2020 09:38 AM VA-TOBACCO USE COMMUNICATIONS OFFICER NO [facility] Nov 14, 2020 09:38 AM VA-TOBACCO USE MED NO [facility] Nov 14, 2020 09:38 AM VA-TOBACCO USE WI 30 MIN OF WAKEUP [facility] Nov 14, 2020 09:38 AM VA-TOBACCO USER EVERY DAY [facility] Feb 08, 2019 10:08 AM VA-TOBACCO FORMER USER [facility] Feb 08, 2019 10:08 AM VA-TOBACCO QUIT 1 TO < 5 YRS [facility] Oct 17, 2017 03:25 PM CURRENT TOBACCO USER [facility] Oct 17, 2017 03:25 PM CURRENT TOBACCO US ER (NOT READY TO QUIT) [facility] Oct 17, 2017 03:25 PM TOBACCO CESSATION REFERRAL DECLINED [facility] Oct 17, 2017 03:25 PM TOBACCO MEDS OFFER ED BUT DECLINED [facility] Oct 17, 2017 03:25 PM TOBACCO USER OFFERED MEDS [facility] Jul 02, 2017 03:19 PM CURRENT TOBACCO USER [facility] Advance Directives: All historical and [...] May 07, 2023 ADVANCE DIRECTIVE DARLEEN ENRIQUEZ [facility] Encounter Notes: All associated encounter notes This section contains the clinical notes associated to the Encounter. Date/Time Encounter Note(s) Provider Source Apr 28, 2024 04:31 PM MENTAL HEALTH NOTE : LOCAL TITLE: MENTAL HEALTH TEAM MEETING ST STANDARD TITLE: MENTAL HEALTH NOTE DATE OF NOTE: APR 28, 2024@16:31 ENTRY DATE: APR 28, 2024@16:32:05 AUTHOR: ESAU COELHO COSIGNER: URGENCY: STATUS: COMPLETED Mental Health Team: Name:ELEONORA TABARES Identified as a REACH [place]:No Identified as High Risk for Suicide:No Services Provided through Team Other:pt scheduled with Dr. Ortega in error, appropraite appt has been scheduled with Dr. Cobos Other teams/clinicans consulted for the staffing: Speciality MH:MH-ART [place] present: No Family/supportive person(s) involvement: Goal of the staffing: Enhance/coordinate [place] care and treatment. Recovery/Progress toward treatment goals: Issues Discussed: pt was incorectly scheduled with Dr. Ortega, pt was very angry with provider, pt has been scheduled with DR. Cobos for f/u care Team Recommendations:f/u with Dr. Cobos Team Consensus on Diagnosis: All changes/updates to 's current mental health diagnoses have been updated in the 'sproblem list to enhance treatment planning across the health care system. If consensus cannot be reached, plan: Referrals: Teams Member Present: (see additional signers for details) /loyda/ ESAU COELHO RN REGISTERED NURSE Signed: 04/28/2024 16:34 ESAU COELHO [facility]
--- OUTSIDE RECORDS SUMMARY | 2024-11-14 04:30 | XMS_ITS | Encounter Summary ---
Author Name [place] Address [address] [place] [address] Care Team Providers Care Creative Lead Name Role Phone JOSUE NGO Primary Care [...] RX PRESCRIPT ION EAL Nov 17, 2018 [facility] [id number] [phone] Jose TABARES PATIENT OPTUM RX PRESCRIPT ION RX PLAN Nov 17, 2018 [facility] [id number] [phone] Jose TABARES PATIENT [facility] Jose SECUR ITY Nov 17, 2018 [id number] [phone] Jose TABARES PATIENT [facility] WHEMT N SECUR ITY Nov 17, 2018 [id number] [phone] Jose TABARES PATIENT [facility] PREFERRED PROVIDER ORGANIZAT ION (PPO) WHEJEROD N SECUR ITY Nov 17, 2018 [id number] [phone] Jose TABARES PATIENT [facility] PREFERRED PROVIDER ORGANIZAT ION (PPO) JOSE FRIEDMAN Nov 17, 2018 [id number] [id number] [phone] Jose TABARES PATIENT Selected Encounter This section includes the information on record at [place] for the Encounter. Date/Time Encounter Type Encounter Description Reason Pro vider Source IHE Encounter Template Text not used by [place] Advance Directives: All historical and current Section Date Range: From patient's date of to the date document was created. This section includes ALL of a patient's completed or amended [place] Advance and Rescinded Directives. The entries below indicate that a directive exists for the patient, but an actual copy is not included with this document. The data comes from all [place] facilities. Date Advance Directives Provider Source May 07, 2023 ADVANCE DIRECTIVE DARLEEN ENRIQUEZ [facility]
--- OUTSIDE RECORDS SUMMARY | 2024-11-14 04:31 | XMS_ITS | Encounter Summary ---
Author Name [place] Address [address] [place] [address] Care Team Providers Care Sequins Spooler Name Role Phone JOSUE NGO Primary Care [...] PRESCRIPT ION RX PLAN Nov 17, 2018 [facility] [id number] [phone] Jose TABARES PATIENT OPTUM RX PRESCRIPT ION [facility] Nov 17, 2018 [facility] [id number] [phone] Jose TABARES PATIENT [facility] WHELA Jose SECUR ITY Nov 17, 2018 [id number] [phone] Jose TABARES PATIENT [facility] Jose SECUR ITY Nov 17, 2018 [id number] [phone] Jose TABARES PATIENT [facility] PREFERRED PROVIDER ORGANIZAT ION (PPO) JOSE Garcia SECUR ITY Nov 17, 2018 [id number] [phone] Jose TABARES PATIENT [facility] PREFERRED PROVIDER ORGANIZAT ION (PPO) JOSE FRIEDMAN Nov 17, 2018 [id number] [phone] Jose TABARES PATIENT Selected Encounter This section includes the information on record at [place] for the Encounter. Date/Time Encounter Type Encounter Description Reason Pro vider Source Jul 03, 2024 03:40 PM Outpatient Encounter ADMIN PAT ACTIVTIES (MASNONCT) IHE Encounter Template Text not used by [place] Plan of Treatment: Future Appointments (+ 6 months) and Future Tests (+/- 45 days) The Plan of Treatment section includes future care activities for the patient from all [place] [facility] This section includes future appointments and future orders which are active, pending or scheduled. Future Appointments This section includes appointments that were scheduled to occur 6 months from the date of the Encounter, up to a maximum of 20 appointments. The data comes from all [place] treatment facilities. Appointment Date/Time Appointment Type Appointme nt Facility Name Jul 05, 2024 01:30 PM AMBULATORY - [facility]RY [facility] Aug 06, 2024 12:30 PM AMBULATORY - PS[facility]CHIATRY [facility] Aug 18, 2024 11:00 AM AMBULATORY - MEDICINE [facility] Sep 06, 2024 02:30 PM AMBULATORY - PSYCHIATRY [facility] Sep 28, 2024 11:40 AM AMBULATORY - SURGERY [facility] Nov 18, 2024 11:30 AM AMBULATORY - MEDICINE [facility] Nov 23, 2024 02:00 PM AMBULATORY - PSYCHIATRY [facility] Nov 30, 2024 12:40 PM AMBULATORY - SURGERY [facility] Social History: Smoking Status (Most current) and Tobacco Use (All prior to encounter date) This section includes the most current, and the historical, smoking and tobacco- related health factors from the [place] facility where the Encounter took place. Current Smoking Status This section includes the most current smoking, or tobacco-related health factor, from the [place] facility where the Encounter took place. Date/Time Current Smoking Status Comment Devorah friedman May 07, 2023 06:21 AM ORYX ADMIT TOBACCO SCREEN YES [facility] Tobacco Use History This section includes a history of the smoking, or tobacco-related health factors, that were collected on or before the date of the Encounter. The data comes from the [place] facility where the Encounter took place. Date/Time Smoking Status/Tobacco Use Comment F acility May 07, 2023 06:21 AM ORYX ADMIT TOBACCO USE CIGS LS 5D 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 May 07, 2023 06:21 AM ORYX DAILY TOBACCO MEDS REFUSED [facility] Oct 27, 2013 02:51 PM QUIT TOBACCO >[address] [facility] Jan 07, 2013 10:01 AM CURRENT TOBACCO USER [facility] Jan 07, 2013 10:01 AM TOBACCO MEDS OFFER ED BUT DECLINED [facility] Sep 18, 2011 12:08 PM QUIT TOBACCO IN TH E LAST [address] [facility] Jul 25, 2011 03:33 PM CURRENT TOBACCO USER [facility] Jul 20, 2010 10:35 AM QUIT TOBACCO IN TH E LAST [address] [facility] Advance Directives: All historical and current Section Date Range: From patient's date of to the date document was created. This section includes ALL of a patient's completed or amended [place] Advance and Rescinded Directives. The entries below indicate that a directive exists for the patient, but an actual copy is not included with this document. The data comes from all [place] facilities. Date Advance Directives Provider Source May 07, 2023 ADVANCE [address] ENRIQUEZ [facility] Encounter Notes: All associated encounter notes This section contains the clinical notes associated to the Encounter. Date/Time Encounter Note(s) Provider Source Jul 03, 2024 03:40 PM ADMINISTRATIVE NOT E: LOCAL TITLE: CCC: SCHEDULING ADMINISTRATION STANDARD TITLE: ADMINISTRATIVE NOTE DATE OF NOTE: JUL 03, 2024@15:40:44 ENTRY DATE: JUL 03, 2024@15:40:44 AUTHOR: JAIRO REIS COSIGNER: URGENCY: STATUS: COMPLETED Patient Demographics Patient Name: ELEONORA TABARES Patient Primary Phone: [phone] Patient Primary [address]: [address] [place] [id number] Patient : 1980 Patient Age: 44 Caller/Recipient Relation to Patient: Self Scheduling Patient Expects Callback: Yes Administrative Administrative Note Reason: Other Administrative Note Comments: CALLED WANTING TO KNOW IF HE COULD SWITCH [facility] IND [facility]ITERSTIEN 1 APPT SCHEDULED FOR 1330 ON Friday07/05/24 TO A [facility], HE STATED HE IS HAVING CAR TROUBLE AND DOES NOT WANT TO MISS THE APPT BUT CAN'T MAKE IT THERE, PLEASE RETURN HIS CALL TO DISCUSS WHEN AVAILABLE. IMPORTANT: This note was created by [facility] Clinical Contact Center staff. Please do not alert the staff member by adding them as a signer for future communications. Alerts are not monitored by this user. /loyda/ JAIRO MCFADDEN Signed: 07/03/2024 15:40 Receipt Acknowledged By: 07/06/2024 15:01 /loyda/ NAEL SANTOS [facility] SUPORT CARDIOTHORACIC SURGEON JAIRO REIS [facility]
--- OUTSIDE RECORDS SUMMARY | 2024-11-14 04:31 | XMS_ITS | Encounter Summary ---
Author Name [place] Address [address] [place] [address] Care Team Providers Care Control Operator Flow Coat Name Role Phone JOSUE NGO Primary Care [...] RX PRESCRIPT ION EAL Nov 17, 2018 [facility] [id number] [phone] Jose TABARES PATIENT OPTUM RX PRESCRIPT ION RX PLAN Nov 17, 2018 [facility] [id number] [phone] Jose TABARES PATIENT [facility] Jose SECUR ITY Nov 17, 2018 [id number] [phone] Jose TABARES PATIENT [facility] Jose SECUR ITY Nov 17, 2018 [id number] [phone] Jose TABARES PATIENT [facility] PREFERRED PROVIDER ORGANIZAT ION (PPO) JOSE Garcia SECUR ITY Nov 17, 2018 [id number] [phone] Jose TABARESOLAS PATIENT [facility] PREFERRED PROVIDER ORGANIZAT ION (PPO) JOSE FRIEDMAN Nov 17, 2018 [id number] [id number] [phone] RAYSHAWNJose KILO PATIENT Selected Encounter This section includes the information on record at [place] for the Encounter. Date/Time Encounter Type Encounter Description Reason Provider Source Oct 22, 2024 12:04 PM HC PRO PHONE CALL 5-10 MIN TELEPHONE/SURGERY ICD-10-CM G56.01 Carpal tunnel syndrome, right upper limb CLEMENTE RODRIGUEZ IHTatyana Encounter Template Text not used by [place] Assessments - Encounter Diagnoses This section includes the primary and secondary diagnoses documented for the Encounter. Date/Time Primary/Secondary Diagnosis Diagnosis Name Provider Source Oct 22, 2024 12:04 PM PRIMARY Carpal tunnel syndrome, right upper limb CLEMENTE RODRIGUEZ [facility] Plan of Treatment: Future Appointments (+ 6 months) and Future Tests (+/- 45 days) The Plan of Treatment section includes future care activities for the patient from all [place] [facility]. This section includes future appointments and future orders which are active, pending or scheduled. Future Appointments This section includes appointments that were scheduled to occur 6 months from the date of the Encounter, up to a maximum of 20 appointments. The data comes from all [facility]. Appointment Date/Time Appointment Type Appointme nt Facility Name Nov 18, 2024 11:30 AM AMBULATORY - MEDICINE [facility] Nov 23, 2024 02:00 PM AMBULATORY - PSYCHIATRY [facility] Nov 30, 2024 12:40 PM AMBULATORY - SURGERY [facility] Feb 17, 2025 11:30 AM AMBULATORY - MEDICINE [facility] Active, Pending, and Scheduled Orders [...] comes from all [facility]. Test Date/Time Test Type Test Details Facility Name Oct 03, 2024 12:00 AM Laboratory - Chemi stry Order CBC BLOOD SP [facility] Oct 03, 2024 12:00 AM Laboratory - Chemi stry Order BASIC METABOLIC PANEL GREEN LI/HEP BLD/PLAS PLASMA SP [facility] Social History: Smoking Status (Most current) and Tobacco Use (All prior to encounter date) This section includes the most current, and the historical, smoking and tobacco- related health factors from the [place] facility where the Encounter took place. Current Smoking Status This section includes the most current smoking, or tobacco-related health factor, from the [place] facility where the Encounter took place. Date/Time Current Smoking Status Comment Facil ity Aug 05, 2024 11:55 AM VA-TOBACCO FORMER USER [facility] Tobacco Use History This section includes a history of the smoking, or tobacco-related health factors, that were collected on or before the date of the Encounter. The data comes from the [place] facility where the Encounter took place. 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 [facility] May 07, 2023 06:21 AM ORYX DAILY TOBACCO MEDS REFUSED [facility] Oct 27, 2013 02:51 PM QUIT TOBACCO >7 YEARS AGO [facility] Jan 07, 2013 10:01 AM CURRENT TOBACCO USER [facility] Jan 07, 2013 10:01 AM TOBACCO MEDS OFFER ED BUT DECLINED [facility] Sep 18, 2011 12:08 PM QUIT TOBACCO IN TH E LAST 12 MONTHS [facility] Jul 25, 2011 03:33 PM CURRENT TOBACCO USER [facility] Jul 20, 2010 10:35 AM QUIT TOBACCO IN TH E LAST 12 MONTHS [facility] Advance Directives: All historical and current Section Date Range: From patient's date of to the date document was created. This section includes ALL of a patient's completed or amended [place] Advance and Rescinded Directives. The entries below indicate that a directive exists for the patient, but an actual copy is not included with this document. The data comes from all [place] facilities. Date Advance Directives Provider Source May 07, 2023 ADVANCE DIRECTIVE DARLEEN ENRIQUEZ [facility] Encounter Notes: All associated encounter notes This section contains the clinical notes associated to the Encounter. Date/Time Encounter Note(s) Provider Source Oct 29, 2024 09:20 AM ADDENDUM: LOCAL TITLE: Addendum STANDARD TITLE: ADDENDUM DATE OF NOTE: OCT 29, 2024@09:20:52 ENTRY DATE: OCT 29, 2024@09:20:53 AUTHOR: DARIO GUNN EXP COSIGNER: URGENCY: STATUS: COMPLETED PT CALLED BACK TO SCHEDULE THE SURGERY. PLEASE FOLLOW UP WITH PT. /saranya GUNN ADVANCED MOLD YARD SUPERVISOR Signed: 10/29/2024 09:22 Receipt Acknowledged By: 11/03/2024 14:01 /saranya RODRIGUEZ RN Case Manager, Plastic Surgery === --- Original Document --- 10/22/24 PLASTIC SURGERY NOTE: ESTABLISHED PATIENT PATIENT IDENTIFIERS - TWO REQUIRED FULL NAME DATE of CAlled to follow up. Qu[place] requests to be taken off surgery rotation. [place] informed he will call to schedule an appointment when he is ready. /saranya RODRIGUEZ RN Case Manager, Plastic Surgery Signed: 10/22/2024 12:09 DARIO GUNN [facility] Oct 22, 2024 12:04 PM PLASTIC SURGERY NO TE: LOCAL TITLE: PLASTIC SURGERY NOTE STANDARD TITLE: PLASTIC SURGERY NOTE DATE OF NOTE: OCT 22, 2024@12:04 ENTRY DATE: OCT 22, 2024@12:04:36 AUTHOR: LON RODRIGUEZ EXP COSIGNER: URGENCY: STATUS: COMPLETED PLASTIC SURGERY NOTE Has ADDENDA ESTABLISHED PATIENT PATIENT IDENTIFIERS - TWO REQUIRED FULL NAME DATE of CAlled to follow up. [place] requests to be taken off surgery rotation. [place]en[place] informed he will call to schedule an appointment when he is ready. /loyda/ LON RODRIGUEZ systems integration advisor, Plastic Surgery Signed: 10/22/2024 12:09 10/29/2024 ADDENDUM STATUS: COMPLETED PT CALLED BACK TO SCHEDULE THE SURGERY. PLEASE FOLLOW UP WITH PT. /loyda/ DARIO GUNN ADVANCED MOLD YARD SUPERVISOR Signed: 10/29/2024 09:22 Receipt Acknowledged By: * AWAITING SIGNATURE * LON RODRIGUEZ [facility]
--- OUTSIDE RECORDS SUMMARY | 2024-11-14 04:31 | XMS_ITS | Encounter Summary ---
Author Name [place] Address [address] [place] [address] Care Team Providers Care Deicer Finisher Name Role Phone JOSUE NGO Primary Care [...] to Policy Cano OPTUM RX PRESCRIPT ION [facility] Nov 17, 2018 [facility] [id number] [phone] Jose CURRY PATIENT OPTUM RX PRESCRIPT ION RX PLAN Nov 17, 2018 [facility] [id number] [phone] Jose CURRY PATIENT [facility] Jose SECUR ITY Nov 17, 2018 [id number] [phone] Jose CURRY PATIENT [facility] Jose SECUR ITY Nov 17, 2018 [id number] [phone] Jose CURRY PATIENT [facility] PREFERRED PROVIDER ORGANIZAT ION (PPO) JOSE Garcia SECUR ITY Nov 17, 2018 [id number] [phone] Jose CURRY PATIENT [facility] PREFERRED PROVIDER ORGANIZAT ION (PPO) JOSE FRIEDMAN Nov 17, 2018 [id number] [id number] [phone] Jose CURRY PATIENT Selected Encounter This section includes the information on record at [place] for the Encounter. Date/Time Encounter Type Encounter Description Reason Provider Source Sep 06, 2024 02:30 PM OFFICE O/P EST MOD 30 MIN [facility] - IND ICD-10-CM F32.89 Other specified depressive episodes TERRA QUIÑONES [facility] Encounter Template Text not used by [place] Assessments - Encounter Diagnoses This section includes the primary and secondary diagnoses documented for the Encounter. 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 This section includes future appointments and future orders which are active, pending or scheduled. Future Appointments This section includes appointments that were scheduled to occur 6 months from the date of the Encounter, up to a maximum of 20 appointments. The data comes from all [place] treatment facilities. Appointment Date/Time Appointment Type Appointme nt Facility Name Sep 28, 2024 11:40 AM AMBULATORY - SURGERY [facility] Nov 18, 2024 11:30 AM AMBULATORY - MEDICINE [facility] Nov 23, 2024 02:00 PM AMBULATORY - PSYCHIATRY [facility] Nov 30, 2024 12:40 PM AMBULATORY - SURGERY [facility] Feb 17, 2025 11:30 AM AMBULATORY - MEDICINE [facility] Active, Pending, and Scheduled Orders This section includes a listing of several types of active, pending, and scheduled orders, including clinic medications orders, diagnostic test orders, procedure orders and consult orders; where the start date of the order is 45 days before the date of the Encounter or 45 days after the date of theEncounter. The data comes from all [place] treatment facilities. Test Date/Time Test Type Test Details Facility Name Oct 03, 2024 12:00 AM Laboratory - Chemi stry Order CBC BLOOD SP [facility] Oct 03, 2024 12:00 AM Laboratory - Chemi stry Order BASIC METABOLIC PANEL GREEN LI/HEP BLD/PLAS PLASMA SP [facility] Social History: Smoking Status (Most current) and Tobacco Use (All prior to encounter date) This section includes the most current, and the historical, smoking and tobacco- related health factors from the [place] facility where the Encounter took place. Current Smoking Status This section includes the most current smoking, or tobacco-related health factor, from the [place] facility where the Encounter took place. Date/Time Current Smoking Status Comment Facil ity Jun 05, 2023 11:00 AM VA-TOBACCO USER SOME DAYS [facility] Tobacco Use History This section includes a history of the smoking, or tobacco-related health factors, that were collected on or before the date of the Encounter. The data comes from the [place] facility where the Encounter took place. Date/Time Smoking Status/Tobacco Use Comment F acility Jun 05, 2023 11:00 AM VA-TOBACCO USE 5 TO 15 YEARS [facility] Jun 05, 2023 11:00 AM VA-TOBACCO USE ADVICE [facility] Jun 05, 2023 11:00 AM VA-TOBACCO USE EXTENSION DIVISION DIRECTOR NO [facility] [...] Nov 14, 2020 09:38 AM VA-TOBACCO USE EXTENSION DIVISION DIRECTOR NO [facility] [...] 2017 03:25 PM TOBACCO USER OFFERED MEDS [facility] Jul 02, 2017 03:19 PM CURRENT TOBACCO USER [facility] Advance Directives: All historical and current Section Date Range: From patient's date of to the date document was created. This section includes ALL of a patient's completed or amended [place] Advance and Rescinded Directives. The entries below indicate that a directive exists for the patient, but an actual copy is not included with this document. The data comes from all [place] facilities. Date Advance Directives Provider Source May 07, 2023 ADVANCE DIRECTIVE DARLEEN ENRIQUEZ [facility] Encounter Notes: All associated encounter notes This section contains the clinical notes associated to the Encounter. Date/Time Encounter Note(s) Provider Source Sep 06, 2024 02:41 PM PSYCHIATRY NOTE: LOCAL TITLE: PSYCHIATRY [facility] STANDARD TITLE: PSYCHIATRY NOTE DATE OF NOTE: SEP 06, 2024@14:41 ENTRY DATE: SEP 06, 2024@14:41:58 AUTHOR: MARIANO QUIÑONES COSIGNER: URGENCY: STATUS: COMPLETED Pt seen and evaluated via [facility]. Mr. Curry is at home in private area. Ongoing stresses include pending foreclosure and health. Requires bilateral carpal tunnel surgery - significant discomfort + limitations in hands. Prevented from art/creative aspirations until surgery completed. [place] has resolved, but owes $7500 to company that aided. Toleating medications without adverse effects. Mirtazipine helpful for sleep - believes more rested than before. Using hydrox prn with some reduction of anxiety. Has cut back EtOH use signifigantly Active Outpatient Medications (including Supplies): Active Outpatient Medications Status 1) HYDROXYZINE HCL 25MG TAB TAKE ONE TABLET BY MOUTH ACTIVE THREE TIMES A DAY NEEDED *MAY CAUSE DROWSINESS* 2) MIRTAZAPINE 30MG TAB TAKE ONE-HALF TABLET BY MOUTH AT ACTIVE BEDTIME 3) PREGABALIN 50MG ORAL CAP TAKE ONE CAPSULE BY MOUTH HOLD TWICE A DAY *MAY CAUSE DROWSINESS* Temperature: 97.4 F [36.3 C] (05/31/2024 13:28) Blood Pressure: 134/87 (05/31/2024 13:28) Pulse: 97 (05/31/2024 13:28) Respirations: 18 (05/31/2024 13:28) MSE: Alert, oriented, NAD, appropriately groomed Motor: no tics/tremors Speech: nml rate, prosody TP: linear, goal directed TC: denies SI/HI/psychosis Mood: mostly nervous Affect: stable I/J: fair - wants to engage in treatment Impression: 44 year old male with PTSD, AUD + secondary physical problems + mood/anxiety disorders in the context of overwhelming stresses. Limited beenfit from previous tx. Low acute risk of harm with protective factors. Hopefully benefit when foreclosure resolved + surgeries complete. Plan: cont mirtaz 15mg targeting sleep + appetite + mood hydroxyzine prn sleep/anxiety motivational interviewing focused on dec EtOH use encouraged wellness reviewe [facility] + community resources for urgent care // MHC contact information poss trial psychotherapy at [facility] >> pending/unclear motivation f/u 8 weeks /loyda/ Mariano Quiñones M.D. Staff Physician, Psychiatry Signed: 09/06/2024 14:49 MARIANO QUIÑONES [facility]
--- OUTSIDE RECORDS SUMMARY | 2024-11-14 04:31 | XMS_ITS | Encounter Summary ---
Author Name [facility] [place] Address [address] [place] [address] Care Team Providers Care In Mold Coater Name Role Phone JOSUE [employer] Primary Care [...] RX PLAN Nov 17, 2018 [facility] [id number] [phone] Jose TABARES PATIENT OPTUM RX PRESCRIPT ION [facility] Nov 17, 2018 [facility] [id number] [phone] Jose TABARES PATIENT [facility] WHE[facility] N SECUR ITY Nov 17, 2018 [id number] [phone] Jose TABARES PATIENT [facility] WHE[facility] N SECUR ITY Nov 17, 2018 [id number] Jose TABARES PATIENT [facility] PREFERRED PROVIDER ORGANIZAT ION (PPO) WHEJEROD N SECUR ITY Nov 17, 2018 [id number] [phone] Jose TABARESS PATIENT [facility] PREFERRED PROVIDER ORGANIZAT ION (PPO) JOSE FRIEDMAN Nov 17, 2018 [id number] [phone] RAYSHAWNJose KILO PATIENT Selected Encounter This section includes the information on record at [place] for the Encounter. Date/Time Encounter Type Encounter Description Reason Provider Source May 31, 2024 02:00 PM OT EVAL MOD COMPLEX 45 MIN OCCUPATIONAL THERAPY ICD-10-CM G56.03 Carpal tunnel syndrome, bilateral upper limbs RAJ HERNANDEZ IHTatyana Encounter Template Text not used by [place] Assessments - Encounter Diagnoses This section includes the primary and secondary diagnoses documented for the Encounter. Date/Time Primary/Secondary Diagnosis Diagnosis Name Provider Source May 31, 2024 02:23 PM PRIMARY Carpal tunnel syndrome, bilateral upper limbs RAJ HERNANDEZ [facility] Plan of Treatment: Future Appointments (+ 6 months) and Future Tests (+/- 45 days) The Plan of Treatment section includes future care activities for the patient from all [place] treatmentfacilities. This section includes future appointments and future orders which are active, pending or scheduled. Future Appointments This section includes appointments that were scheduled to occur 6 months from the date of the Encounter, up to a maximum of 20 appointments. The data comes from all [place] treatment facilities. Appointment Date/Time Appointment Type Appointme nt Facility Name Jul 05, 2024 01:30 PM AMBULATORY - PSYCHIATRY [facility] Aug 06, 2024 12:30 PM AMBULATORY - PSYCHIATRY [facility] Aug 18, 2024 11:00 AM AMBULATORY - MEDICINE [facility] Sep 06, 2024 02:30 PM AMBULATORY - PSYCHIATRY [facility] Sep 28, 2024 11:40 AM AMBULATORY - SURGERY [facility] Nov 18, 2024 11:30 AM AMBULATORY - MEDICINE [facility] Nov 23, 2024 02:00 PM AMBULATORY - PSYCHIATRY [facility] Nov 30, 2024 12:40 PM AMBULATORY - SURGERY [facility] Vital Signs: All taken on the encounter date This section contains inpatient and outpatient Vital Signs collected on the date of the Encounter. Date/Time Temperature Pulse Blood Pressure Respiratory Rate SP02 Pain Height Weight Body Mass Index Source May 31, 2024 01:28 PM 97.4 97 134/87 18 98 3 71 167.9 23 [facility] Social History: Smoking Status (Most current) and Tobacco Use (All prior to encounter date) This section includes the most current, and the historical, smoking and tobacco- related health factors from the [place] facility where the Encounter took place. Current Smoking Status This section includes the most current smoking, or tobacco-related health factor, from the [place] facility where the Encounter took place. Date/Time Current Smoking Status Comment Facil ity May 07, 2023 06:21 AM ORYX ADMIT TOBACCO SCREEN YES [facility] Tobacco Use History This section includes a history of the smoking, or tobacco-related health factors, that were collected on or before the date of the Encounter. The data comes from the [place] facility where the Encounter took place. Date/Time Smoking Status/Tobacco Use Comment F acility May 07, 2023 06:21 AM ORYX ADMIT TOBACCO USE CIGS LS 5D [facility] May 07, 2023 06:21 AM ORYX DAILY TOBACCO METAL TILE LATHER RECEIVED [facility] May 07, 2023 06:21 AM ORYX DAILY TOBACCO MEDS REFUSED [facility] Oct 27, 2013 02:51 PM QUIT TOBACCO >7 YEARS AGO [facility] Jan 07, 2013 10:01 AM CURRENT TOBACCO USER [facility] Jan 07, 2013 10:01 AM TOBACCO MEDS OFFER ED BUT DECLINED [facility] Sep 18, 2011 12:08 PM QUIT TOBACCO IN TH E LAST 12 MONTHS [facility] Jul 25, 2011 03:33 PM CURRENT TOBACCO USER [facility] Jul 20, 2010 10:35 AM QUIT TOBACCO IN TH E LAST 12 MONTHS [facility] Advance Directives: All historical and current Section Date Range: From patient's date of to the date document was created. This section includes ALL of a patient's completed or amended [place] Advance and Rescinded Directives. The entries below indicate that a directive exists for the patient, but an actual copy is not included with this document. The data comes from all [facility] facilities. Date Advance Directives Provider Source May 07, 2023 ADVANCE DIRECTIVE DARLEEN ENRIQUEZ [facility] Encounter Notes: All associated encounter notes This section contains the clinical notes associated to the Encounter. Date/Time Encounter Note(s) Provider Source May 31, 2024 02:18 PM CONSULT: LOCAL TITLE: OT WALK IN CONSULT STL STANDARD TITLE: CONSULT DATE OF NOTE: MAY 31, 2024@14:18 ENTRY DATE: MAY 31, 2024@14:18:50 AUTHOR: RAJ HERNANDEZ COSIGNER: URGENCY: STATUS: COMPLETED Occupational Therapy INITIAL DISCONTINUATION Note for CARPAL TUNNEL SYNDROME Diagnosis: Carpal tunnel syndrome, bilateral upper limbs(ICD-10-CM G56.03) Requesting Provider: Nallely De La Rosa Reason for request: Date of Initial Evaluation: Right left carpal tunnel. Needs [place] splints HBS; Futuro external carpal tunnel splints during the day; gliding exercises carpal tunnel Total Treatment Time:[id number] 15 min eval S: Vet reports numbness to bilat 1-3 digits that cause pain, decreased strength and enduracne. Vet is A/O x 4 (name, place, time/date, situation). Vet was able to demo understanding of therapy instructions this date. No further cognitive screening was indicated. O: Vet into OP OT without AD. Full ROM Hand A/PROM/Coordination/Audio Visual Facilities Engineer: Audio Visual Facilities Engineer Strength: R: 84 lbs L: 85 lbs Bateman/lateral pinch: R: 13 lbs L: 15 lbs Palmar/three jaw ajay pinch: R: 16 lbs L: 16 lbs Equipment ordered/issued: Right and Left Wrist brace, Size Medium. Ceballos Green Fitted Wrist Brace, L/XL, Right, Item #[id number] Ceballos Green Fitted Wrist Brace, L/XL, Left,Item #[id number] Poynette education Poynette was ready to learn and demonstrated an understanding of equipment issued. Poynette given 1:1 instruction in equipment issued and/or home exercise program as noted above. A: 44 y/o vet referred to OT for, Right left carpal tunnel. Needs [place] splints HBS; Futuro external carpal tunnel splints during the day; gliding exercises carpal tunnel . Vet fit for bilat medum wrist brace and instructed to wear to sleep and fit for bilat Ceballos Green Fitted Wrist Brace to be worn through the day PRN, vet receptive. OT educated vet on Median nerve glides and HEP focused on stretching: elbow flexed forearm supinated, left hand assist right wrist into extension and hold and elbow extended forearm supinated, left hand assist right wrist into extension and hold. Vet able to complete all HEP in clinic with good demo. Given HEP and braces, no f/u needed. Occupational Profile and History [] Brief (low) [x] Expanded (moderate) [] Extensive (high) Performance deficits identified: [] ADLs [] IADLs [] Functional mobility [] Range of motion [] Muscle Strength [] Functional Endurance [] Functional Balance [] Fine motor coordination [] Adaptive equipment needs [] Cognition [] Vision [] Coping skills [] Interpersonal interaction [] Impulse control [] Other (please specify: ) Btaeman: 1-3 performance deficits = Low complexity 3-5 performance deficits = moderate complexity 5 or more performance deficits = high complexity Level of Clinical Decision Making [] problem-focused assessment [x] detailed assessment [] comprehensive assessment --Therefore, from the findings above in Veterans Occupational Profile/History, Performance Deficits and level of clinical decision making, the OT Evaluation level of complexity of this patient was: [] Low [x] Moderate [] High Barriers to achievement of goal: None P: D/C with no follow up after one visit secondary to achieving goal. Poynette or caregiver will understand safe use of equipment listed above. /loyda/ GEOFFREY Kapoor/Ramsey, CLT Occupational Therapist Signed: 05/31/2024 14:23 RAJ HERNANDEZ [facility]
--- OUTSIDE RECORDS SUMMARY | 2024-11-14 04:31 | XMS_ITS | Encounter Summary ---
Author Name [facility] [place] Organization [facility] [place] Address [address] [place] [address] Care Team Providers Care Investments Manager Name Role Phone JOSUE [employer] Primary Care [...] PRESCRIPT ION RX PLAN Nov 17, 2018 [facility] [id number] [phone] Jose TABARES PATIENT OPTUM RX PRESCRIPT ION E[facility] Nov 17, 2018 [facility] [id number] [phone] Jose TABARES PATIENT [facility] WHE[facility] Jose SECUR ITY Nov 17, 2018 [id number] [phone] Jose TABARES PATIENT [facility] WHELA N SECUR ITY Nov 17, 2018 [id number] [phone] Jose TABARES PATIENT [facility] PREFERRED PROVIDER ORGANIZAT ION (PPO) WHEJEROD N SECUR ITY Nov 17, 2018 [id number] [phone] RAYSHAWNJose BOTAENG PATIENT [facility] PREFERRED PROVIDER ORGANIZAT PARESH (PPO) JOSE FRIEDMAN Nov 17, 2018 [id number] [id number] [phone] Jose TABARES MAITEANDIE PATIENT Selected Encounter This section includes the information on record at [place] for the Encounter. Date/Time Encounter Type Encounter Description Reason Provider Source May 31, 2024 01:30 PM OFF/OP CNSLTJ NEW/EST LOW 30 HAND SURGERY ICD-10-CM G56.03 Carpal tunnel syndrome, bilateral upper limbs LAI ROSE [facility] Encounter Template Text not used by [place] Assessments - Encounter Diagnoses This section includes the primary and secondary diagnoses documented for the Encounter. Date/Time Primary/Secondary Diagnosis Diagnosis Name Provider Source May 31, 2024 05:19 PM PRIMARY Carpal tunnel syndrome, bilateral upper limbs LAI ROSE [facility] Plan of Treatment: [...] 05, 2024 01:30 PM AMBULATORY - PSYCHIATRY [facility] Aug 06, 2024 12:30 PM AMBULATORY - PSYCHIATRY [facility] Aug 18, 2024 11:00 AM AMBULATORY - MEDICINE [facility] Sep 06, 2024 02:30 PM AMBULATORY - PSYCHIATRY [facility] Sep 28, 2024 11:40 AM AMBULATORY - SURGERY [facility] Nov 18, 2024 11:30 AM AMBULATORY - MEDICINE [facility] Nov 23, 2024 02:00 PM AMBULATORY - PSYCHIATRY [facility] Nov 30, 2024 12:40 PM AMBULATORY - SURGERY [facility] Vital Signs: All taken on the encounter date This section contains inpatient and outpatient Vital Signs collected on the date of the Encounter. Date/Time Temperature Pulse Blood Pressure Respiratory Rate SP02 Pain Height Weight Body Mass Index Source May 31, 2024 01:28 PM 97.4 97 134/87 18 98 3 71 167.9 23 [facility] Social History: Smoking Status [...] AM ORYX ADMIT TOBACCO SCREEN YES [facility] Tobacco Use History This section includes a history of the smoking, or tobacco-related health factors, that were collected on or before the date of the Encounter. The data comes from the [place] facility where the Encounter took place. Date/Time Smoking Status/Tobacco Use Comment F acility May 07, 2023 06:21 AM ORYX ADMIT TOBACCO USE CIGS LS 5D [facility] May 07, 2023 06:21 AM ORYX DAILY TOBACCO INVESTIGATION MANAGER RECEIVED [facility] May 07, 2023 06:21 AM ORYX DAILY TOBACCO MEDS REFUSED [facility] Oct 27, 2013 02:51 PM QUIT TOBACCO >[address] [facility] Jan 07, 2013 10:01 AM CURRENT TOBACCO USER [facility] Jan 07, 2013 10:01 AM TOBACCO MEDS OFFER ED BUT DECLINED [facility] Sep 18, 2011 12:08 PM QUIT TOBACCO IN TH E LAST [address] [facility] Jul 25, 2011 03:33 PM CURRENT TOBACCO USER [facility] Jul 20, 2010 10:35 AM QUIT TOBACCO IN TH E LAST [address] [facility] Advance Directives: All historical and current [...] 2023 ADVANCE DIRECTIVE DARLEEN ENRIQUEZ [facility] Encounter Notes: All associated encounter notes This section contains the clinical notes associated to the Encounter. Date/Time Encounter Note(s) Provider Source May 31, 2024 01:37 PM ORTHOPEDIC SURGERY CONSULT: LOCAL TITLE: ORTHOPEDIC CONSULT ST STANDARD TITLE: ORTHOPEDIC SURGERY CONSULT DATE OF NOTE: MAY 31, 2024@13:37 ENTRY DATE: MAY 31, 2024@13:37:30 AUTHOR: LAI ROSE COSIGNER: URGENCY: STATUS: COMPLETED 44 year old MALE with left and right carpal tunnel syndrome. Has had hand dysesthesias over a year. All fingers both hands are affected including small finger. Dropping objects. At times complains of debilitating pain at the base of the palm. Has had no treatment. Not diabetic, non-smoker. Of note this patient has been treated with gabapentin for left sided sciatica previously. He wonders if gabapentin would be helpful. [id number] Past medical history: 1) Low back pain (SNOMED CT 935794865) 2) Traumatic brain injury with no loss of consciousness (SNOMED CT 215552644) 3) Acute posttraumatic stress disorder following combat (SNOMED CT 444194675) 4) Concussion (ICD-9-CM 850.9) 5) Anxiety * (ICD-9-CM 300.00/300.09) 6) Depression * (ICD-9-CM 311./300.4) 7) Attention-deficit hyperactivity disorder * 8) Unemployment 9) Palpitations (ICD-9-CM 785.1) 10) Routine General Medical Examination at a Health Care Facility * (ICD-9-CM V70.0) 11) Lumbosacral radiculopathy (SNOMED CT 8393867) 12) Tobacco use 13) Pain 14) Abnormal blood pressure 15) Chronic depression 16) Admits alcohol use 17) Insomnia 18) Alcohol abuse 19) Hypokalemia 20) Posttraumatic stress disorder Medications:MRT1 - Med Reconciliation UTPT MELOXICAM 15MG TAB (Status = Active) TAKE ONE TABLET BY MOUTH ONCE A DAY NEEDED Rx# [id number] Last Released: 04/30/24 Qty/Days Supply: 60 Rx Expiration Date: 06/27/24 Refills Remainin Indication: FOR OSTEOARTHRITIS OUTPT POTASSIUM CL 20MEQ SA TAB (DISPERSIBLE) (Status = ) TAKE ONE TABLET BY MOUTH ONCE A DAY TAKE WITH FOOD Rx# [id number] Last Released: 03/15/24 Qty/Days Supply: 05/23 Rx Expiration Date: 04/14/24 Refills Remainin Indication: FOR POTASSIUM SUPPLEMENTATION OUTPT PREGABALIN 50MG ORAL CAP (Status = On Hold) TAKE ONE CAPSULE BY MOUTH TWICE A DAY *MAY CAUSE DROWSINESS* Rx# [id number] Last Released: Qty/Days Supply: Rx Expiration Date: 10/29/24 Refills Remainin Indication: FOR NERVE PAIN Patient has known Allergies as noted:Patient has answered NKA SOCIAL HISTORY: tobacco use: Non-smoker etoh/drug abuse: work history: ROS: negative for recent illness or contributory health elements FH: non-contributory PHYSICAL EXAMINATION A&OX3 NAD 167.9 lb [76.16 kg] (05/31/2024 13:28) 23.5VITAL SIGNS: Temp: 97.4 F [36.3 C] (05/31/2024 13:28) Pulse: 97 (05/31/2024 13:28) BP: 134/87 (05/31/2024 13:28) RESP: 18 (05/31/2024 13:28) Pain: 3 (05/31/2024 13:28) well nourished well developed man mood is pleasant and appropriate ambulation: unassisted hearing:normal to speech skin intact MUSCULOSKELETAL EXAM: Negative elbow flexion test. Ulnar nerve does not sublux on either side. Negative Phalen's negative Nate's negative Tinel's. No digital triggering. Normal opposition normal interossei negative Froment's sign. Normal Gwyn test. RADIOGRAPHS: Left and right hand x-rays are normal EMG/NCV suggest carpal tunnel syndrome. DML on the left is 4.6 with normal amplitude; DML on the right is 4.7 with markedly diminished amplitude. DIAGNOSIS: Right and left carpal tunnel syndrome PLAN: Discussed treatment options including carpal tunnel release bracing and gliding exercises. The patient would like to begin conservative measures. Recommended Futuro daytime splints bilaterally, and [place] carpal tunnel night splints along with gliding exercises. RTC: August 12, 2024 to assess his progress. Time required for chart review, interview, physical examination, inspection of images, outline of treatment plan, order to delivery supervisor and documentation 35 minutes. Please note that this dictation was completed with computer voice recognition software, often unanticipated grammatical, syntax and other interpretive errors are inadvertently transcribed by the computer software. Please disregard these errors. /es/ LAI ROSE MD Staff Physician, Orthopedics Signed: 05/31/2024 17:19 LAI ROSE [facility]
--- OUTSIDE RECORDS SUMMARY | 2024-11-14 04:31 | XMS_ITS ---
Author Name [place] Address [address] [place] [address] Care Team Providers Care Safety Admin Assistant Name Role Phone JOSUE SCHILLING Primary Care [...] PRESCRIPT ION UHEAL TH Nov 17, 2018 [facility] [id number] [phone] Jose TABARES PATIENT OPTUM RX PRESCRIPT ION RX PLAN Nov 17, 2018 [facility] [id number] [phone] Jose TABARES PATIENT [facility] WHELA N SECUR ITY Nov 17, 2018 [id number] Jose TABARES PATIENT [facility] WHELA N SECUR ITY Nov 17, 2018 [id number] [phone] Jose TABARES PATIENT [facility] PREFERRED PROVIDER ORGANIZAT ION (PPO) WHELA N SECUR ITY Nov 17, 2018 [id number] [phone] Jose TABARES PATIENT [facility] PREFERRED PROVIDER ORGANIZAT ION (PPO) JOSE FRIEDMAN Nov 17, 2018 [id number] [phone] Jose TABARES PATIENT Selected Encounter This section includes the information on record at [place] for the Encounter. Date/Time Encounter Type Encounter Description Reason Provider Source May 14, 2024 03:30 PM Outpatient Encounter TELEPHONE PRIMARY CARE ICD-10-CM R52 Pain, unspecified KODWAJOSUE ALMENDAREZ IHE Encounter Template Text not used by [place] Assessments - Encounter Diagnoses This section includes the primary and secondary diagnoses documented for the Encounter. Date/Time Primary/Secondary Diagnosis Diagnosis Name Provider Source May 14, 2024 03:30 PM PRIMARY Pain, unspecified [facility] May 14, 2024 03:30 PM SECONDARY Alcohol use, unspecified, uncomplicated [facility] May 14, 2024 03:30 PM SECONDARY Elevated blood-pressure reading, w/o diagnosis of htn [facility] May 14, 2024 03:30 PM SECONDARY Other specified depressive episodes [facility] May 14, 2024 03:30 PM SECONDARY Post-traumatic stress disorder, unspecified [facility] May 14, 2024 03:30 PM SECONDARY Tobacco use [facility] Plan of Treatment: Future Appointments (+ 6 months) and Future Tests (+/- 45 days) The Plan of Treatment section includes future care activities for the patient [facility] all [place] [facility] This section includes future appointments and future orders which are active, pending or scheduled. Future Appointments This section includes appointments that were scheduled to occur 6 months from the date of the Encounter, up to a maximum of 20 appointments. The data comes from all [place] treatment facilities. Appointment Date/Time Appointment Type Appointme nt Facility Name May 31, 2024 01:30 PM AMBULATORY - SURGERY [facility] Jul 05, 2024 01:30 PM AMBULATORY - PSYCHIATRY [facility] Aug 06, 2024 12:30 PM AMBULATORY - PSYCHIATRY [facility] Aug 18, 2024 11:00 AM AMBULATORY - MEDICINE [facility] Sep 06, 2024 02:30 PM AMBULATORY - PSYCHIATRY [facility] Sep 28, 2024 11:40 AM AMBULATORY - SURGERY [facility] Social History: Smoking Status (Most current) and Tobacco Use (All prior to encounter date) This section includes the most current, and the historical, smoking and tobacco- related health factors from the [place] facility where the Encounter took place. Current Smoking Status This section includes the most current smoking, or tobacco-related health factor, from the [place] facility where the Encounter took place. Date/Time Current Smoking Status Comment Facil ity Jun 05, 2023 11:00 AM VA-TOBACCO USER SOME DAYS [facility] Tobacco Use History This section includes a history of the smoking, or tobacco-related health factors, that were collected on or before the date of the Encounter. The data comes from the [place] facility where the Encounter took place. Date/Time Smoking Status/Tobacco Use Comment F acility Jun 05, 2023 11:00 AM VA-TOBACCO USE 5 TO 15 YEARS [facility] Jun 05, 2023 11:00 AM VA-TOBACCO USE ADVICE [facility] Jun 05, 2023 11:00 AM VA-TOBACCO USE WOOD ROUTER HAND NO [facility] Jun 05, 2023 [...] Nov 14, 2020 09:38 AM VA-TOBACCO USE WOOD ROUTER HAND NO [facility] Nov 14, 2020 [...] ALL of a patient's completed or amended [place] Advance and Rescinded Directives. The entries below indicate that a directive exists for the patient, but an actual copy is not included with this document. The data comes from all [place] facilities. Date Advance Directives Provider Source May 07, 2023 ADVANCE DIRECTIVE DARLEEN ENRIQUEZ [facility] Encounter Notes: All associated encounter notes This section contains the clinical notes associated to the Encounter. Date/Time Encounter Note(s) Provider Source May 17, 2024 10:17 AM ADDENDUM: LOCAL TITLE: Addendum STANDARD TITLE: ADDENDUM DATE OF NOTE: MAY 17, 2024@10:17:37 ENTRY DATE: MAY 17, 2024@10:17:38 AUTHOR: JOSUE SCHILLING EXP COSIGNER: URGENCY: STATUS: COMPLETED RTC 3 month video visit /loyda/ Josue Schilling MD Staff Physician Signed: 05/17/2024 10:17 Receipt Acknowledged By: 05/17/2024 11:18 /loyda/ DALLAS YOUNG MSA --- Original Document --- 05/14/24 PRIMARY CARE TELEPHONE CONTACT STL: ESTABLISHED PATIENT : 43 yoM h/o HTN, PTSD, MDD, SHIRA, h/o chronic EtOH abuse/dependence, h/o multiple TBIs (per S H&P 05/31/21 and Polytrauma/[facility] evaluation 2009), CLBP, insomnia, ADHD. CC / HPI : routine f/u phone visit. Denies any other complaint today Allergies: NKDA [...] diarrhea, no constipation EXT: denies pedal edema, no arthritis NEURO : no dizziness, no headache ASSESSMENT/PLAN: The patient's most recent test results and medication list were reviewed in detail with the patient. - bilateral carpal tunnel syndrome. Plan to see Ortho. - Elevated BP : plan for low salt diet - PTSD / Depression / anxiety / ADHD /insomnia: No SI, no HI. Plan to see mental health - ETHO Use : counselling was done again - Tobacco use: counseling was done. Plan: cont's meds. need to bring all medication bottles at next visit. Medications list updated with patient today. 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 Handwritten corrections, additions and/or deletions were made to the list, as appropriate. Corrected Outpatient Medication List was provided to the patient/caregiver. /loyda/ Josue Schilling MD Staff Physician Signed: 05/17/2024 10:17 JOSUE SCHILLING [facility] May 14, 2024 03:30 PM TELEPHONE ENCOUNTE R NOTE: LOCAL TITLE: PRIMARY CARE TELEPHONE CONTACT STL STANDARD TITLE: TELEPHONE ENCOUNTER NOTE DATE OF NOTE: MAY 14, 2024@15:30 ENTRY DATE: MAY 17, 2024@10:16:43 AUTHOR: JOSUE SCHILLING EXP COSIGNER: URGENCY: STATUS: COMPLETED PRIMARY CARE TELEPHONE CONTACT STL Has ADDENDA ESTABLISHED PATIENT : 43 yoM h/o HTN, PTSD, MDD, SHIRA, h/o chronic EtOH abuse/dependence, h/o multiple TBIs (per [facility] 05/[facility]/21 and Polytrauma/[facility] Clinic evaluation 2009), CLBP, insomnia, ADHD. CC / HPI : routine f/u phone visit. Denies any other complaint today Allergies: NKDA [...] diarrhea, no constipation EXT: denies pedal edema, no arthritis NEURO : no dizziness, no headache ASSESSMENT/PLAN: The patient's most recent test results and medication list were reviewed in detail with the patient. - bilateral carpal tunnel syndrome. Plan to see Ortho. - Elevated BP : plan for low salt diet - PTSD / Depression / anxiety / ADHD /insomnia: No SI, no HI. Plan to see mental health - ETHO Use : counselling was done again - Tobacco use: counseling was done. Plan: cont's meds. need to bring all medication bottles at next visit. Medications list updated with patient today. 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 Handwritten corrections, additions and/or deletions were made to the list, as appropriate. Corrected Outpatient Medication List was provided to the patient/caregiver. /loyda/ Josue Schilling MD Staff Physician Signed: 05/17/2024 10:17 05/17/2024 ADDENDUM STATUS: COMPLETED RTC 3 month video visit /saranya Schilling MD Staff Physician Signed: 05/17/2024 10:17 Receipt Acknowledged By: * AWAITING SIGNATURE * DALLAS YOUNG ASHA [facility]
--- OUTSIDE RECORDS SUMMARY | 2024-11-14 04:31 | XMS_ITS ---
Author Name [facility] [place] Address [address] [place] [address] Care Team Providers Care User Experience Architect Name Role Phone JOSUE NGO Primary Care [...] to Policy Cano OPTUM RX PRESCRIPT ION [facility] Nov 17, 2018 [facility] [id number] [phone] Jose TABARES PATIENT OPTUM RX PRESCRIPT ION RX PLAN Nov 17, 2018 [facility] [id number] [phone] Jose TABARES PATIENT [facility] WHELA Jose SECUR ITY Nov 17, 2018 [id number] [phone] Jose TABARES PATIENT [facility] MENT[facility] WHELA Jose SECUR ITY Nov 17, 2018 [id number] [phone] Jose TABARES PATIENT [facility] PREFERRED PROVIDER ORGANIZAT ION (PPO) JOSE Garcia SECUR ITY Nov 17, 2018 [id number] [phone] Jose TABARES PATIENT [facility] PREFERRED PROVIDER ORGANIZAT PARESH (PPO) JOSE FRIEDMAN Nov 17, 2018 [id number] [id number] [phone] Jose TABARES MAITEANDIE PATIENT Selected Encounter This section includes the information on record at [place] for the Encounter. Date/Time Encounter Type Encounter Description Reason Provider Source Jul 05, 2024 01:30 PM OFFICE O/P EST HI 40 MIN MENTAL HE[facility] CLINIC - IND ICD-10-CM Z72.0 Tobacco use [facility] Encounter Template Text not used by [place] Assessments - Encounter Diagnoses This section includes the primary and secondary diagnoses documented for the Encounter. Date/Time Primary/Secondary Diagnosis Diagnosis Name Provider Source Jul 05, 2024 02:31 PM PRIMARY Tobacco use [facility] Jul 05, 2024 02:31 PM SECONDARY Alcohol use, unspecified with intoxication, uncomplicated [facility] Jul 05, 2024 02:31 PM SECONDARY Alcohol use, unspecified, uncomplicated [facility] Jul 05, 2024 02:31 PM SECONDARY Other specified depressive episodes [facility] Jul 05, 2024 02:31 PM SECONDARY Post-traumatic stress disorder, unspecified [facility] Plan of Treatment: Future Appointments (+ 6 months) and Future Tests (+/- 45 days) The Plan of Treatment section includes future care activities for the patient [facility] [place] [facility]. This section includes future appointments and future orders which are active, pending or scheduled. Future Appointments This section includes appointments that were scheduled to occur 6 months from the date of the Encounter, up to a maximum of 20 appointments. The data comes from all [place] treatment facilities. Appointment Date/Time Appointment Type Appointme nt Facility Name Aug 06, 2024 12:30 PM AMBULATORY - PSYCHIATRY [facility] Aug 18, 2024 11:00 AM AMBULATORY - MEDICINE [facility] Sep 06, 2024 02:30 PM AMBULATORY - PSYCHIATRY [facility] Sep 28, 2024 11:40 AM AMBULATORY - SURGERY [facility] Nov 18, 2024 11:30 AM AMBULATORY - MEDICINE [facility] Nov 23, 2024 02:00 PM AMBULATORY - PSYCHIATRY [facility] Nov 30, 2024 12:40 PM AMBULATORY - SURGERY [facility] Social History: Smoking Status (Most current) and [...] place. Date/Time Current Smoking Status Comment Devorah ity Jun 05, 2023 11:00 AM VA-TOBACCO USER SOME DAYS [facility] Tobacco Use History This section includes a history of the smoking, or tobacco-related health factors, that were collected on or before the date of the Encounter. The data comes from the [place] facility where the Encounter took place. Date/Time Smoking Status/Tobacco Use Comment F acility Jun 05, 2023 11:00 AM VA-TOBACCO USE 5 TO 15 YEARS [facility] Jun 05, 2023 11:00 AM VA-TOBACCO USE ADVICE [facility] Jun 05, 2023 11:00 AM VA-TOBACCO USE GERM DRIER NO [facility] Jun 05, 2023 11:00 AM VA-TOBACCO USE MED NO [facility] Jun 05, 2023 11:00 AM VA-TOBACCO USER SOME DAYS [facility] April 16, 2022 03:00 PM VA-TOBACCO FORMER USER [facility] April 16, 2022 03:00 PM VA-TOBACCO QUIT < 1 YEAR [facility] Nov 14, 2020 09:38 AM VA-TOBACCO USE 1 TO < 5 YEARS [facility] Nov 14, 2020 09:38 AM VA-TOBACCO USE ADVICE [facility] Nov 14, 2020 09:38 AM VA-TOBACCO USE GERM DRIER NO [facility] Nov 14, 2020 09:38 AM VA-TOBACCO USE MED NO [facility] Nov 14, 2020 09:38 AM VA-TOBACCO USE WI 30 MIN OF WAKEUP [facility] Nov 14, 2020 09:38 AM VA-TOBACCO USER EVERY DAY [facility] Feb 08, 2019 10:08 AM VA-TOBACCO FORMER USER [facility] Feb 08, 2019 10:08 AM VA-TOBACCO QUIT 1 TO < 5 YRS [facility] Oct 17, 2017 03:25 PM CURRENT TOBACCO USER [facility] Oct 17, 2017 03:25 PM CURRENT TOBACCO US ER (NOT READY TO QUIT) [facility] Oct 17, 2017 03:25 PM TOBACCO CESSATION REFERRAL DECLINED [facility] Oct 17, 2017 03:25 PM TOBACCO MEDS OFFER ED BUT DECLINED [facility] Oct 17, 2017 03:25 PM TOBACCO USER OFFERED MEDS [facility] Jul 02, 2017 03:19 PM CURRENT TOBACCO USER [facility] Advance Directives: All historical and current Section Date Range: From patient's date of to the date document was created. This section includes ALL of a patient's completed or amended [place] Advance and Rescinded Directives. The entries below indicate that a directive exists for the patient, but an actual copy is not included with this document. The data comes from all [place] facilities. Date Advance Directives Provider Source May 07, 2023 ADVANCE DIRECTIVE DARLEEN ENRIQUEZ [facility] Encounter Notes: All associated encounter notes This section contains the clinical notes associated to the Encounter. Date/Time Encounter Note(s) Provider Source Jul 05, 2024 02:19 PM PSYCHIATRY NOTE: LOCAL TITLE: PSYCHIATRY [facility] STANDARD TITLE: PSYCHIATRY NOTE DATE OF NOTE: JUL 05, 2024@14:19 ENTRY DATE: JUL 05, 2024@14:19:40 AUTHOR: MARIANO QUIÑONES COSIGNER: URGENCY: STATUS: COMPLETED Pt seen and evaluated. Appt via VVC - pt at home in quiet environment. Long hx of treatment reviewed including care in polytrauma, PTSD clinic + [facility]. Problem list includes TBI, PTSD, mood/anxiety disorders + AUD. Discussed long hx of treatment. Intermittent benefits from psychotherapy + medications. Most recently off medications/tx. Using 4-8 drinks EtOH daily with some relief of sxs since 2019. Limited engagement in tx since 2020 hosp >> did not like inpt unit. Prominent nighttime sxs to include NM, awakenings, poor sleep quality, in addition to low mood, feelings of h/h/w, irritablity, anxiety, dulled cognition, dec appetite, isolation, avoidance. Specifically denies thoughts of self harm. 15 y/o daughter is protective. Severe stresses include overwhelming financial problems involving [place] + foreclosure. Active Outpatient Medications (including Supplies): Active Outpatient Medications Status 1) PREGABALIN 50MG ORAL CAP TAKE ONE CAPSULE BY MOUTH HOLD TWICE A DAY *MAY CAUSE DROWSINESS* Pending Outpatient Medications Status 1) HYDROXYZINE HCL 25MG TAB TAKE ONE TABLET BY MOUTH PENDING THREE TIMES A DAY NEEDED *MAY CAUSE DROWSINESS* 2) MIRTAZAPINE 30MG TAB TAKE ONE-HALF TABLET BY MOUTH AT PENDING BEDTIME 3 Total Medications Temperature: 97.4 F [36.3 C] (05/31/2024 13:28) Blood Pressure: 134/87 (05/31/2024 13:28) Pulse: 97 (05/31/2024 13:28) Respirations: 18 (05/31/2024 13:28) MSE: Alert, oriented, NAD, appropriately groomed Motor: steady gait - no tics/tremors Speech: nml rate, prosody TP: linear, goal directed TC: denies SI/HI/psychosis Mood: down Affect: stable I/J: fair - wants to engage in treatment Impression: 44 year old male with PTSD, AUD + secondary physical problems + mood/anxiety disorders presents to re-establish care with [facility]. Limited beenfit from previous tx. Low acute risk of harm with protective factors. Plan: SARRTP IOP trial mirtaz 15mg targeting sleep + appetite + mood hydroxyzine prn sleep/anxiety supportive psychotherapy focused on anxiety + psychosocial stresses - 20 min [facility]iewe [facility] for urgent care // [facility] [place] [facility] f/u 4 weeks 45 min total care /es/ Mariano Quiñones M.D. Staff Physician, Psychiatry Signed: 07/05/2024 14:31 MARIANO QUIÑONES [facility]
--- OUTSIDE RECORDS SUMMARY | 2024-11-14 04:31 | XMS_ITS | Encounter Summary ---
Author Name [place] Address [address] [place] [address] Care Team Providers Care Confidential Secretary Name Role Phone JOSUE NGO Primary Care [...] PRESCRIPT ION RX PLAN Nov 17, 2018 [facility] [id number] [phone] Jose TABARES PATIENT OPTUM RX PRESCRIPT ION [facility] Nov 17, 2018 [facility] [id number] [phone] Jose TABARES PATIENT [facility] WHELA N SECUR ITY Nov 17, 2018 [id number] [phone] Jose TABARES PATIENT [facility] WHE[facility] N SECUR ITY Nov 17, 2018 [id number] Jose TABARES PATIENT [facility] PREFERRED PROVIDER ORGANIZAT ION (PPO) WHELA N SECUR ITY Nov 17, 2018 [id number] [phone] Jose TABARES PATIENT [facility] PREFERRED PROVIDER ORGANIZAT ION (PPO) JOSE FRIEDMAN Nov 17, 2018 [id number] [phone] RAYSHAWNJose KILO PATIENT Selected Encounter This section includes the information on record at [place] for the Encounter. Date/Time Encounter Type Encounter Description Reason Provider Source Jul 13, 2024 11:50 AM ALCOHOL AND/OR DRUG ASSESS SUBSTANCE USE DISORDER IND ICD-10-CM F10.90 Alcohol use, unspecified, uncomplicated DARRELL MITTAL A [facility] Encounter Template Text not used by [place] Assessments - Encounter Diagnoses This section includes the primary and secondary diagnoses documented for the Encounter. Date/Time Primary/Secondary Diagnosis Diagnosis Name Provider Source Jul 13, 2024 11:58 AM PRIMARY Alcohol use, unspecified, uncomplicated JESUS MITTAL Joe [facility] Plan of Treatment: Future Appointments (+ 6 months) and Future Tests (+/- 45 days) The Plan of Treatment section includes future care activities for the patient from all [place] treatmentfacilities. This section includes future appointments and future orders which are active, pending or scheduled. Future Appointments This section includes appointments that were scheduled to occur 6 months from the date of the Encounter, up to a maximum of 20 appointments. The data comes from all [place] treatment facilities. Appointment Date/Time Appointment Type Appointme nt Facility Name Aug 06, 2024 12:30 PM AMBULATORY - PSYCHIATRY [facility] Aug 18, 2024 11:00 AM AMBULATORY - MEDICINE [facility] Sep 06, 2024 02:30 PM AMBULATORY - PSYCHIATRY [facility] Sep 28, 2024 11:40 AM AMBULATORY - SURGERY [facility] Nov 18, 2024 11:30 AM AMBULATORY - MEDICINE [facility] Nov 23, 2024 02:00 PM AMBULATORY - PSYCHIATRY [facility] Nov 30, 2024 12:40 PM AMBULATORY - SURGERY [facility] Advance Directives: All historical and current [...] May 07, 2023 ADVANCE DIRECTIVE DARLEEN ENRIQUEZ Joe [facility] Encounter Notes: All associated encounter notes This section contains the clinical notes associated to the Encounter. Date/Time Encounter Note(s) Provider Source Jul 13, 2024 11:50 AM MENTAL HEALTH ADMI NISTRATIVE NOTE: LOCAL TITLE: [facility] NO SHOW [facility] STANDARD TITLE: MENTAL HEALTH ADMINISTRATIVE NOTE DATE OF NOTE: JUL 13, 2024@11:50 ENTRY DATE: JUL 13, 2024@11:56:38 AUTHOR: JESUS MITTAL COSIGNER: URGENCY: STATUS: COMPLETED did not attend scheduled appointment. [facility] DOES NOT have a high risk flag for suicide assigned to his/her chart. Attempted to contact by phone due to failure to appear for scheduled appointment. Spoke to [facility] by phone concerning No Show. - is not interested in rescheduling at this time. denied emergent concerns at this time. No further action is planned unless contacted by the [facility] or a referring provider. The reported that he only wanted IOP information. He does not want to admit to IOP at this time. Will follow up with the IOP coordinator for further assistance. /loyda/ JESUS MITTAL Addiction TherapistDEISI / IOP Signed: 07/13/2024 11:59 Receipt Acknowledged By: 07/20/2024 13:35 /loyda/ Robbin Chand Addiction TherapistDEISI [facility] 07/15/2024 14:42 /loyda/ ANA COLEMAN ADVANCED BLOCK BREAKER OPERATOR JESUS MITTAL
--- OUTSIDE RECORDS SUMMARY | 2024-11-14 04:31 | XMS_ITS | Encounter Summary ---
Author Name [facility] [place] Organization [place] Address [address] [place] [address] Care Team Providers Care Steel Plate Caulker Name Role Phone JOSUE NGO Primary Care [...] 17, 2018 [facility] [id number] [phone] Jose TABARES PATIENT OPTUM RX PRESCRIPT ION [facility] Nov 17, 2018 [facility] [id number] Jose TABARES PATIENT [facility] WHELA N SECUR ITY Nov 17, 2018 [id number] [phone] Jose TABARES PATIENT [facility] SECUR ITY Nov 17, 2018 [id number] Jose TABARES PATIENT [facility] CARE PREFERRED PROVIDER ORGANIZAT ION (PPO) WHELA N SECUR ITY Nov 17, 2018 [id number] [phone] Jose TABARES PATIENT [facility] PREFERRED PROVIDER ORGANIZAT ION (PPO) JOSE FRIEDMAN Nov 17, 2018 [id number] RAYSHAWNJose PATIENT Selected Encounter This section includes the information on record at [place] for the Encounter. Date/Time Encounter Type Encounter Description Reason Provider Source Oct 03, 2024 01:46 PM Outpatient Encounter CARDIOLOGY ICD-10-CM Z01.810 Encounter for preprocedural cardiovascular examination RONALD ROSE Tatyana Encounter Template Text not used by [place] Assessments - Encounter Diagnoses This section includes the primary and secondary diagnoses documented for the Encounter. Date/Time Primary/Secondary Diagnosis Diagnosis Name Provider Source Oct 03, 2024 02:17 PM PRIMARY Encounter for preprocedural cardiovascular examination KWAME ROSE [facility] Oct 03, 2024 02:17 PM SECONDARY Palpitations PLEASANTONKWAME [facility] Plan of Treatment: Future Appointments (+ 6 months) and Future Tests (+/- 45 days) The Plan of Treatment section includes future care activities for the patient from all [facility]. This section includes future appointments and future orders which are active, pending or scheduled. Future Appointments This section includes appointments that were scheduled to occur 6 months from the date of the Encounter, up to a maximum of 20 appointments. The data comes from all [facility]. Appointment Date/Time Appointment Type Appointme nt Facility Name Nov 18, 2024 11:30 AM AMBULATORY - MEDICINE [facility] Nov 23, 2024 02:00 PM AMBULATORY - PSYCHIATRY [facility] Nov 30, 2024 12:40 PM AMBULATORY - SURGERY [facility] Feb 17, 2025 11:30 AM AMBULATORY - MEDICINE [facility] Active, Pending, and Scheduled Orders This section includes a listing of several types of active, pending, and scheduled orders, including clinic medications orders, diagnostic test orders, procedure orders and consult orders; where the start date of the order is 45 days before the date of the Encounter or 45 days after the date of theEncounter. The data comes from all [facility]. Test Date/Time Test Type Test Details Facility Name Oct 03, 2024 12:00 AM Laboratory - Chemi stry Order CBC BLOOD SP [facility] Oct 03, 2024 12:00 AM Laboratory - Chemi stry Order BASIC METABOLIC PANEL GREEN LI/HEP BLD/PLAS PLASMA SP [facility] Social History: Smoking Status (Most current) and Tobacco Use (All prior to encounter date) This section includes the most current, and the historical, smoking and tobacco- related health factors from the ID facility where the Encounter took place. Current Smoking Status This section includes the most current smoking, or tobacco-related health factor, from the ID facility where the Encounter took place. Date/Time Current Smoking Status Comment Facil ity Aug 05, 2024 11:55 AM VA-TOBACCO FORMER USER [facility] Tobacco Use History This section includes a history of the smoking, or tobacco-related health factors, that were collected on or before the date of the Encounter. The data comes from the ID facility where the Encounter took place. Date/Time Smoking Status/Tobacco Use Comment F acility Aug 05, 2024 11:55 AM VA-TOBACCO QUIT 5 TO < 15 YRS [facility] May 07, 2023 06:21 AM ORYX ADMIT TOBACCO SCREEN YES [facility] May 07, 2023 06:21 AM ORYX ADMIT TOBACCO USE CIGS LS 5D [facility] May 07, 2023 06:21 AM ORYX DAILY TOBACCO GRIEF COUNSELOR RECEIVED [facility] May 07, 2023 06:21 AM ORYX DAILY TOBACCO MEDS REFUSED [facility] Oct 27, 2013 02:51 PM QUIT TOBACCO >7 YEARS AGO [facility] Jan 07, 2013 10:01 AM CURRENT TOBACCO USER [facility] Jan 07, 2013 10:01 AM TOBACCO MEDS OFFER ED BUT DECLINED [facility] Sep 18, 2011 12:08 PM QUIT TOBACCO IN TH E LAST 12 MONTHS [facility] Jul 25, 2011 03:33 PM CURRENT TOBACCO USER [facility] Jul 20, 2010 10:35 AM QUIT TOBACCO IN TH E LAST 12 MONTHS [facility] Advance Directives: All historical and current Section Date Range: From patient's date of to the date document was created. This section includes ALL of a patient's completed or amended [place] Advance and Rescinded Directives. The entries below indicate that a directive exists for the patient, but an actual copy is not included with this document. The data comes from all [place] facilities. Date Advance Directives Provider Source May 07, 2023 ADVANCE DIRECTIVE DARLEEN ENRIQUEZ [facility] Encounter Notes: All associated encounter notes This section contains the clinical notes associated to the Encounter. Date/Time Encounter Note(s) Provider Source Oct 03, 2024 01:46 PM CONSULT: LOCAL TITLE: E-CONSULT CARDIOLOGY OUTPT STL STANDARD TITLE: CONSULT DATE OF NOTE: OCT 03, 2024@13:46 ENTRY DATE: OCT 03, 2024@13:46:59 AUTHOR: KWAME ROSE EXP COSIGNER: URGENCY: STATUS: COMPLETED The reason for consult: history of palpitations - preop EKG with resting sinus tachycardia. planning OR for carpal and cubital tunnel release under general anesthesia. does he need further evaluation? thanks I have reviewed pertinent CPRS documentation in the electronic medical record for this patient. The recommendations/findings offered are the result of information from the requesting provider and a chart review only. ECG Date Verified: Sep 29, 2024@19:14:31 16732.2 Ventricular Rate: 111 BPM 54347.3 Atrial Rate: 111 BPM 86644.4 P-R Interval: 134 ms 55878.5 QRS Duration: 92 ms 84273.6 Q-T Interval: 344 ms 02916 QTC Calculation(Bazett)467 ms 55651.12 Calculated P Kimball: 69 degrees 41029.13 Calculated R Kimball: 59 degrees 24993.14 Calculated T Kimball: 38 degrees Sinus tachycardia Otherwise normal ECG When compared with ECG of 15-MAR-2024 12:35, Nonspecific T wave abnormality no longer evident in Anterior leads ECG Date Verified: Mar 15, 2024@12:50:36 56810.2 Ventricular Rate: 88 BPM 59686.3 Atrial Rate: 88 BPM 49622.4 P-R Interval: 144 ms 05882.5 QRS Duration: 100 ms 92086.6 Q-T Interval: 384 ms 41960 QTC Calculation(Bazett)464 ms 24259.12 Calculated P Kimball: 40 degrees 05572.13 Calculated R Kimball: 12 degrees 75758.14 Calculated T Kimball: 13 degrees Normal sinus rhythm 48-hour Ambulatory Holter Report Date Holter applied: 09/09/11 Reason for Holter: Palpitations sustained for as long as 15 minutes 12-lead EKG: Sinus rhythm High Heart Rate: 115/m Average Heart Rate: 75/m Low Heart Rate: 54/m VENTRICULAR ECTOPY Average number of Premature Ventricular Contraction's/hr: 0 Total Paired PVC's: 0 Total runs of Non-sustained Ventricular Tachycardia: 0 ATRIAL ECTOPY Average number of Premature Atrial Contractions per hour: 0 Total Paired PAC's: 0 Total runs of Paroxysmal Atrial Tachycardia: 0 Rhythm Interpretation: 1) Sinus rhythm with an average heart rate of 75/m. 2) There was a total of 1 isolated PVC/scan. 3) No atrial ectopy. 4) No diary returned. Clinical Significance: 48-hour ambulatory Holter within normal limits with no arrhythmic explanation for patient's complaint of palpitations. Diagnosis and/or Impression: Jose Rafael is a 44 yo with a past medical history significant for palpitations, TBI, anxiety, depression, ETOH abuse, tobacco use, ADHD who is being evaluated for carpal and cubital tunnel release under general anesthesia. Per chart review, his c/o palpitations go as far back as 2010. He completed a 48 hour holter at this time that showed normal sinus rhythm and no arrhythmic explanation for his palpitations. His most recent ECG 09/28/24 revealed sinus tachycardia. The ECG prior 03/15/24 showed sinus rhythm HR 88. Per PCP notes, jose rafael has hx of ADHD and is taking adderall prn as prescribed by an outside provider. Tachycardia is a known side effect of adderall. He also has a hx of anxiety and ETOH abuse. It is unclear if he consumes caffeine or energy drinks. Any of these factors could have contributed to the tachycardia seen on his most recent ECG. If the is able to complete >4 METS without any cardiopulmonary symptoms, then no further cardiac evaluation is needed prior to surgery. 31+ minutes reviewing patient's medical records /loyda/ CLAYTON Love Nurse Practitioner Signed: 10/03/2024 14:18 KWAME ROSE [facility]
--- OUTSIDE RECORDS SUMMARY | 2024-11-14 04:31 | XMS_ITS ---
Author Name [place] Address [address] [place] [address] Care Team Providers Care Guest Relations Coordinator Name Role Phone JOSUE NGO Primary [...] PRESCRIPT ION RX PLAN Nov 17, 2018 [facility] [id number] [phone] Jose TABARES PATIENT OPTUM RX PRESCRIPT ION EAL Nov 17, 2018 [facility] [id number] [phone] Jose TABARES PATIENT [facility] WHELA Jose SECUR ITY Nov 17, 2018 [id number] [phone] Jose TABARES PATIENT [facility]ENT[facility] WHELA N SECUR ITY Nov 17, 2018 [id number] [phone] Jose TABARES PATIENT [facility] PREFERRED PROVIDER ORGANIZAT ION (PPO) WHEJEROD Garcia SECUR ITY Nov 17, 2018 [id number] [phone] Jose TABARES PATIENT [facility] PREFERRED PROVIDER ORGANIZAT PARESH (PPO) JOSE NEGRETE ITKatharina Nov 17, 2018 [id number] Jose TABARES PATIENT Selected Encounter This section includes the information on record at [place] for the Encounter. Date/Time Encounter Type Encounter Description Reason Provider Source Aug 03, 2024 07:56 AM OFF/OP EST MARCH X REQ PHY/QHP ORTHO/JOINT SURG ICD-10-CM G56.03 Carpal tunnel syndrome, bilateral upper limbs MIKE ROSS IHTatyana Encounter Template Text not used by [place] Assessments - Encounter Diagnoses This section includes the primary and secondary diagnoses documented for the Encounter. Date/Time Primary/Secondary Diagnosis Diagnosis Name Provider Source Aug 03, 2024 07:57 AM PRIMARY Carpal tunnel syndrome, bilateral upper limbs MIKE ROSS [facility] Plan of Treatment: Future Appointments (+ 6 months) and Future Tests (+/- 45 days) The Plan of Treatment section includes future care activities for the patient from all [place] [facility]. This section includes future appointments and [...] 18, 2024 11:00 AM AMBULATORY - MEDICINE [facility] Sep 06, 2024 02:30 PM AMBULATORY - PSYCHIATRY [facility] Sep 28, 2024 11:40 AM AMBULATORY - SURGERY [facility] Nov 18, 2024 11:30 AM AMBULATORY - MEDICINE [facility] Nov 23, 2024 02:00 PM AMBULATORY - PSYCHIATRY [facility] Nov 30, 2024 12:40 PM AMBULATORY - SURGERY [facility] Social History: Smoking Status (Most current) and [...] AM ORYX ADMIT TOBACCO SCREEN YES [facility] Tobacco Use History This section includes a history of the smoking, or tobacco-related health factors, that were collected on or before the date of the Encounter. The data comes from the [place] facility where the Encounter took place. Date/Time Smoking Status/Tobacco Use Comment F acility May 07, 2023 06:21 AM ORYX ADMIT TOBACCO USE CIGS LS 5D [facility] May 07, 2023 06:21 AM ORYX DAILY TOBACCO MANAGER SUBWAY RECEIVED [facility] May 07, 2023 06:21 AM ORYX DAILY TOBACCO MEDS REFUSED [facility] Oct 27, 2013 02:51 PM QUIT TOBACCO >7 YEARS AGO [facility] Jan 07, 2013 10:01 AM CURRENT TOBACCO USER [facility] Jan 07, 2013 10:01 AM TOBACCO MEDS OFFER ED BUT DECLINED [facility] Sep 18, 2011 12:08 PM QUIT TOBACCO IN TH E LAST 12 MONTHS [facility] Jul 25, 2011 03:33 PM CURRENT TOBACCO USER [facility] Jul 20, 2010 10:35 AM QUIT TOBACCO IN TH E LAST 12 MONTHS [facility] Advance Directives: All historical and current Section Date Range: From patient's date of to the date document was created. This section includes ALL of a patient's completed or amended [place] Advance and Rescinded Directives. The entries below indicate that a directive exists for the patient, but an actual copy is not included with this document. The data comes from all [facility]. Date Advance Directives Provider Source May 07, 2023 ADVANCE DIRECTIVE DARLEEN ENRIQUEZ [facility] Encounter Notes: All associated encounter notes This section contains the clinical notes associated to the Encounter. Date/Time Encounter Note(s) Provider Source Aug 03, 2024 07:57 AM ORTHOPEDIC SURGERY NOTE: LOCAL TITLE: ORTHOPEDIC STL STANDARD TITLE: ORTHOPEDIC SURGERY NOTE DATE OF NOTE: AUG 03, 2024@07:57 ENTRY DATE: AUG 03, 2024@07:57:07 AUTHOR: MIKE ROSS EXP COSIGNER: URGENCY: STATUS: COMPLETED Plastic surgery consult entered for f/u care of carpal tunnel syndrome. Orthopedics no longer treating this condition d/t staffing changes. /es/ MIKE ROSS MSN ANP-BC Nurse Practitioner, Orthopedics Signed: 08/03/2024 07:57 MIKE ROSS [facility]
--- OUTSIDE RECORDS SUMMARY | 2024-11-14 04:31 | XMS_ITS | Encounter Summary ---
Author Name [place] Address [address] [place] [address] Care Team Providers Care Locomotive Engineer Name Role Phone JOSUE NGO Primary Care [...] RX PRESCRIPT ION EAL Nov 17, 2018 [facility] [id number] [phone] Jose TABARES PATIENT OPTUM RX PRESCRIPT ION RX PLAN Nov 17, 2018 [facility] [id number] [phone] Jose TABARES PATIENT [facility] JOSE NEGRETE ITY Nov 17, 2018 [id number] [phone] Jose TABARES PATIENT [facility] MENTAL HEALTH WHELA Jose SECUR ITY Nov 17, 2018 [id number] [phone] Jose TABARES PATIENT [facility] PREFERRED PROVIDER ORGANIZAT ION (PPO) JOSE NEGRETE ITY Nov 17, 2018 [id number] [phone] Jose TABARES PATIENT [facility] PREFERRED PROVIDER ORGANIZAT PARESH (PPO) JOSE NEGRETE ITY Nov 17, 2018 [id number] [phone] [phone] Jose TABARES PATIENT Selected Encounter This section includes the information on record at [place] for the Encounter. Date/Time Encounter Type Encounter Description Reason Pro vider Source Jul 05, 2024 01:35 PM Outpatient Encounter ADMIN PAT ACTIVTIES (MASNONCT) IHE Encounter Template Text not used by [place] Plan of Treatment: Future Appointments (+ 6 months) and Future Tests (+/- 45 days) The Plan of Treatment section includes future care activities for the patient from all [place] [facility] This section includes future appointments and future [...] 06, 2024 12:30 PM AMBULATORY - PSYCHIATRY [facility] Aug 18, 2024 11:00 AM AMBULATORY - MEDICINE [facility] Sep 06, 2024 02:30 PM AMBULATORY - PSYCHIATRY [facility] Sep 28, 2024 11:40 AM AMBULATORY - SURGERY [facility] Nov 18, 2024 11:30 AM AMBULATORY - MEDICINE [facility] Nov 23, 2024 02:00 PM AMBULATORY - PSYCHIATRY [facility] Nov 30, 2024 12:40 PM AMBULATORY - SURGERY [facility] Social History: Smoking Status (Most current) and [...] ORYX ADMIT TOBACCO SCREEN YES [facility] Tobacco Use History This section includes a history of the smoking, or tobacco-related health factors, that were collected on or before the date of the Encounter. The data comes from the [place] facility where the Encounter took place. Date/Time Smoking Status/Tobacco Use Comment F acility May 07, 2023 06:21 AM ORYX ADMIT TOBACCO USE CIGS LS 5D [facility] May 07, 2023 06:21 AM ORYX DAILY TOBACCO PLANNING LEAD RECEIVED [facility] May 07, 2023 06:21 AM ORYX DAILY TOBACCO MEDS REFUSED [facility] Oct 27, 2013 02:51 PM QUIT TOBACCO >7 YEARS AGO [facility] Jan 07, 2013 10:01 AM CURRENT TOBACCO USER [facility] Jan 07, 2013 10:01 AM TOBACCO MEDS OFFER ED BUT DECLINED [facility] Sep 18, 2011 12:08 PM QUIT TOBACCO IN TH E LAST [address] [facility] Jul 25, 2011 03:33 PM CURRENT TOBACCO USER [facility] Jul 20, 2010 10:35 AM QUIT TOBACCO IN TH E LAST [address] [facility] Advance Directives: All historical and current Section [...] 2023 ADVANCE DIRECTIVE DARLEEN ENRIQUEZ [facility] Encounter Notes: All associated encounter notes This section contains the clinical notes associated to the Encounter. Date/Time Encounter Note(s) Provider Source Jul 05, 2024 01:36 PM ADMINISTRATIVE NOT E: LOCAL TITLE: CCC: SCHEDULING ADMINISTRATION STANDARD TITLE: ADMINISTRATIVE NOTE DATE OF NOTE: JUL 05, 2024@13:36 ENTRY DATE: JUL 05, 2024@13:36:01 AUTHOR: LOVE GANN COSIGNER: URGENCY: STATUS: COMPLETED Patient Demographics Patient Name: ELEONORA TABARES Patient Primary Phone: [phone] Patient Primary Address: [address] [place] [address] Patient : 1980 Patient Age: 44 Caller/Recipient Relation to Patient: Self Administrative Administrative Note Reason: Other Administrative Note Comments: CALLED IN TO RESCHEDULE 07/05/24 APPT TO A VVC, WARM TRANSFER TO [facility]. IMPORTANT: This note was created by [facility] Clinical Contact Center staff. Please do not alert the staff member by adding them as a signer for future communications. Alerts are not monitored by this user. /loyda/ LOVE MCFADDEN Signed: 07/05/2024 13:36 LOVE GANN [facility]
--- OUTSIDE RECORDS SUMMARY | 2024-11-14 04:31 | XMS_ITS | Encounter Summary ---
Author Name [place] Address [address] [place] [address] Care Team Providers Care Ground Transportation Operator Name Role Phone JOSUE NGO Primary [...] Policy Cano OPTUM RX PRESCRIPT ION UHEAL Nov 17, 2018 [facility] [id number] Jose TABARES PATIENT OPTUM RX PRESCRIPT ION RX PLAN Nov 17, 2018 [facility] [id number] [phone] Jose TABARES PATIENT [facility] WHELA N SECUR ITY Nov 17, 2018 [id number] Jose TABARES PATIENT [facility] WHELA Jose SECUR ITY Nov 17, 2018 [id number] [phone] Jose TABARES PATIENT [facility] PREFERRED PROVIDER ORGANIZAT ION (PPO) WHEJEROD N SECUR ITY Nov 17, 2018 [id number] [phone] Jose TABARES PATIENT [facility] PREFERRED PROVIDER ORGANIZAT ION (PPO) JOSE FRIEDMAN Nov 17, 2018 [id number] Jose TABARES PATIENT Selected Encounter This section includes the information on record at [place] for the Encounter. Date/Time Encounter Type Encounter Description Reason Provider Source Jul 06, 2024 03:29 PM HC PRO PHONE CALL 11-20 MIN TELEPHONE EDGAR ICD-10-CM F10.90 Alcohol use, unspecified, uncomplicated ROBBIN CHAND IHTatyana Encounter Template Text not used by [place] Assessments - Encounter Diagnoses This section includes the primary and secondary diagnoses documented for the Encounter. Date/Time Primary/Secondary Diagnosis Diagnosis Name Provider Source Jul 06, 2024 03:29 PM PRIMARY Alcohol use, unspecified, uncomplicated ROBBIN CHAND SARRTMic Plan of Treatment: Future Appointments (+ 6 months) and Future Tests (+/- 45 days) The Plan of Treatment section includes future care activities for the patient from all [place] treatmentfacilities. This section includes future appointments and future orders which are active, pending or scheduled. Future Appointments This section includes appointments that were scheduled to occur 6 months from the date of the Encounter, up to a maximum of 20 appointments. The data comes from all [place] treatment facilities. Appointment Date/Time Appointment Type Appointme nt Facility Name Aug 06, 2024 12:30 PM AMBULATORY - PSYCHIATRY [facility] Aug 18, 2024 11:00 AM AMBULATORY - MEDICINE [facility] Sep 06, 2024 02:30 PM AMBULATORY - PSYCHIATRY [facility] Sep 28, 2024 11:40 AM AMBULATORY - SURGERY [facility] Nov 18, 2024 11:30 AM AMBULATORY - MEDICINE [facility] Nov 23, 2024 02:00 PM AMBULATORY - PSYCHIATRY [facility] Nov 30, 2024 12:40 PM AMBULATORY - SURGERY [facility] Advance Directives: All historical and current Section Date Range: From patient's date of to the date document was created. This section includes ALL of a patient's completed or amended [place] Advance and Rescinded Directives. The entries below indicate that a directive exists for the patient, but an actual copy is not included with this document. The data comes from all [place] facilities. Date Advance Directives Provider Source May 07, 2023 ADVANCE DIRECTIVE DARLEEN ENRIQUEZ [facility] Encounter Notes: All associated encounter notes This section contains the clinical notes associated to the Encounter. Date/Time Encounter Note(s) Provider Source Jul 06, 2024 03:29 PM TELEPHONE ENCOUNTE R NOTE: LOCAL TITLE: TELEPHONE NOTE STANDARD TITLE: TELEPHONE ENCOUNTER NOTE DATE OF NOTE: JUL 06, 2024@15:29 ENTRY DATE: JUL 06, 2024@15:29:47 AUTHOR: ROBBIN CHAND EXP COSIGNER: URGENCY: STATUS: COMPLETED Intake scheduled on Friday, July 13 via VVC with Jesus at 1130 hrs. Confirmed Veterans contact information: Patient Email - [email or web address] Explained how DEISI SRINIVASAN operated and the expectations to participate in group 3 hours per day on Friday, Friday, and for 4 weeks. Instructed to log onto the VVC through the email link they will be sent the business day before. Completed the C-SSRS An orientation letter was emailed to the on July 06, and RTC was submitted. /loyda/ Robbin Chand Addiction TherapistDEISI STEVENSON 51E Signed: 07/06/2024 15:31 Receipt Acknowledged By: 07/06/2024 16:39 /loyda/ JESUS MITTAL Addiction TherapistDEISI / ROBBIN VELASCO
--- OUTSIDE RECORDS SUMMARY | 2024-11-14 04:31 | XMS_ITS ---
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 Name Role Phone [employer] Primary Care [...] PRESCRIPT ION RX PLAN Nov 17, 2018 [facility] [id number] [phone] Jose TABARES PATIENT [employer] PRESCRIPT ION [facility] Nov 17, 2018 [facility] [id number] [phone] Jose TABARES PATIENT [facility] WHELA N SECUR ITY Nov 17, 2018 [id number] [phone] Jose TABARES PATIENT [facility] MENTAL HEALTH WHELA N SECUR ITY Nov 17, 2018 [id number] [phone] Jose TABARES PATIENT [facility] PREFERRED PROVIDER ORGANIZAT ION (PPO) WHEJEROD Garcia SECUR ITY Nov 17, 2018 [id number] [phone] Jose TABARES PATIENT [facility] PREFERRED PROVIDER ORGANIZAT PARESH (PPO) JOSE FRIEDMAN Nov 17, 2018 [id number] [phone] Jose TABARES PATIENT Selected Encounter This section includes the information on record at [place] for the Encounter. Date/Time Encounter Type Encounter Description Reason Provider Source Aug 06, 2024 12:30 PM OFFICE O/P EST MOD 30 MIN [facility] - IND ICD-10-CM F32.89 Other specified depressive episodes TERRA QUIÑONES [facility] Encounter Template Text not used by [place] Assessments - Encounter Diagnoses This section includes the primary and secondary diagnoses documented for the Encounter. Date/Time Primary/Secondary Diagnosis Diagnosis Name Provider Source Aug 06, 2024 12:47 PM PRIMARY Other specified depressive episodes TERRA QUIÑONES [facility] Aug 06, 2024 12:47 PM SECONDARY Post-traumatic stress disorder, acute TERRA QUIÑONES [facility] Plan of Treatment: Future Appointments (+ 6 months) and Future Tests (+/- 45 days) The Plan of Treatment section includes future care activities for the patient from all [place] treatmentfacilities. This section includes future appointments and future orders which are active, pending or scheduled. Future Appointments This section includes appointments that were scheduled to occur 6 months from the date of the Encounter, up to a maximum of 20 appointments. The data comes from all [place] treatment facilities. Appointment Date/Time Appointment Type Appointme nt Facility Name Aug 18, 2024 11:00 AM AMBULATORY - MEDICINE [facility] Sep 06, 2024 02:30 PM AMBULATORY - PSYCHIATRY [facility] Sep 28, 2024 11:40 AM AMBULATORY - SURGERY [facility] Nov 18, 2024 11:30 AM AMBULATORY - MEDICINE [facility] Nov 23, 2024 02:00 PM AMBULATORY - PSYCHIATRY [facility] Nov 30, 2024 12:40 PM AMBULATORY - SURGERY [facility] Social History: Smoking Status (Most current) and Tobacco Use (All prior to encounter date) This section includes the most current, and the historical, smoking and tobacco- related health factors from the [place] facility where the Encounter took place. Current Smoking Status This section includes the most current smoking, or tobacco-related health factor, from the [place] facility where the Encounter took place. Date/Time Current Smoking Status Comment Devorah ity Jun 05, 2023 11:00 AM VA-TOBACCO USER SOME DAYS [facility] Tobacco Use History This section includes a history of the smoking, or tobacco-related health factors, that were collected on or before the date of the Encounter. The data comes from the [place] facility where the Encounter took place. 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 [facility] Jun 05, 2023 11:00 AM VA-TOBACCO USE MED NO [facility] Jun 05, 2023 11:00 AM VA-TOBACCO USER SOME DAYS [facility] April 16, 2022 03:00 PM VA-TOBACCO FORMER USER [facility] April 16, 2022 03:00 PM VA-TOBACCO QUIT < 1 YEAR [facility] Nov 14, 2020 09:38 AM VA-TOBACCO USE 1 TO < 5 YEARS [facility] Nov 14, 2020 09:38 AM VA-TOBACCO USE ADVICE [facility] Nov 14, 2020 09:38 AM 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 [facility] Nov 14, 2020 09:38 AM VA-TOBACCO USE MED NO [facility] Nov 14, 2020 09:38 AM VA-TOBACCO USE WI 30 MIN OF WAKEUP [facility] Nov 14, 2020 09:38 AM VA-TOBACCO USER EVERY DAY [facility] Feb 08, 2019 10:08 AM VA-TOBACCO FORMER USER [facility] Feb 08, 2019 10:08 AM VA-TOBACCO QUIT 1 TO < 5 YRS [facility] Oct 17, 2017 03:25 PM CURRENT TOBACCO USER [facility] Oct 17, 2017 03:25 PM CURRENT TOBACCO US ER (NOT READY TO QUIT) [facility] Oct 17, 2017 03:25 PM TOBACCO CESSATION REFERRAL DECLINED [facility] Oct 17, 2017 03:25 PM TOBACCO MEDS OFFER ED BUT DECLINED [facility] Oct 17, 2017 03:25 PM TOBACCO USER OFFERED MEDS [facility] Jul 02, 2017 03:19 PM CURRENT TOBACCO USER [facility] Advance Directives: All historical and current Section Date Range: From patient's date of to the date document was created. This section includes ALL of a patient's completed or amended [place] Advance and Rescinded Directives. The entries below indicate that a directive exists for the patient, but an actual copy is not included with this document. The data comes from all [place] facilities. Date Advance Directives Provider Source May 07, 2023 ADVANCE DIRECTIVE DARLEEN ENRIQUEZ [facility] Encounter Notes: All associated encounter notes This section contains the clinical notes associated to the Encounter. Date/Time Encounter Note(s) Provider Source Aug 06, 2024 12:37 PM PSYCHIATRY NOTE: LOCAL TITLE: PSYCHIATRY [facility] STANDARD TITLE: PSYCHIATRY NOTE DATE OF NOTE: AUG 06, 2024@12:37 ENTRY DATE: AUG 06, 2024@12:37:35 AUTHOR: MARIANO QUIÑONES COSIGNER: URGENCY: STATUS: COMPLETED Appt via [facility] - pt at home in [place] area. Reports no EtOH over past month. 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 Denies craving for EtOH - states previous drinking in response to anxiety, intrusive thoughts, poor sleep. Recognizes maladaptive nature of behavior. Taking mirtazipine for 3 weeks. Notes dec anxiety, improved stress tolerance, dec sleep latency, improved sleep quality. Denies adverse effects. Has not used other resources >> [facility], vet center. States he is doing well with current plan. Active Outpatient Medications (including Supplies): Active Outpatient Medications Status 1) HYDROXYZINE HCL 25MG TAB TAKE ONE TABLET BY MOUTH ACTIVE THREE TIMES A DAY NEEDED *MAY CAUSE DROWSINESS* 2) MIRTAZAPINE 30MG TAB TAKE ONE-HALF TABLET BY MOUTH AT ACTIVE BEDTIME 3) PREGABALIN 50MG ORAL CAP TAKE ONE CAPSULE BY MOUTH HOLD TWICE A DAY *MAY CAUSE DROWSINESS*Active Outpatient Medications (including Supplies): Temperature: 97.4 F [36.3 C] (05/31/2024 13:28) Blood Pressure: 134/87 (05/31/2024 13:28) Pulse: 97 (05/31/2024 13:28) Respirations: 18 (05/31/2024 13:28) MSE: Alert, oriented, NAD, appropriately groomed Motor: steady gait - no tics/tremors Speech: nml rate, prosody TP: linear, goal directed TC: denies SI/HI/psychosis Mood: doing OK Affect: stable I/J: intact Impression: 44 year old male with PTSD, AUD + secondary physical problems + mood/anxiety disorders presents to re-establish care with [facility]. Doing better with no EtOH + mirtazipine Low acute risk of harm with protective factors. Plan: SARRTP IOP mirtaz 15mg targeting sleep + appetite + mood hydroxyzine prn sleep/anxiety ongoing encouragement of recovery oriented activity reviewed [facility] + community resources for urgent care // [facility] contact information f/u 4 weeks [facility] 30 min total care /es/ Mariano Quiñones M.D. Staff Physician, Psychiatry Signed: 08/06/2024 12:47 MARIANO QUIÑONES [facility]
--- OUTSIDE RECORDS SUMMARY | 2024-11-14 04:31 | XMS_ITS ---
[place] ANESTHESIA PRE/POST-OP CONSULT [facility] Encounter Summary Created on: November 13, 2024 RAYSHAWNLUIS FERNANDO LUNAMichael DAN : 1980 Sex: Male Author Name [employer] [place] Organization [facility] [employer] [place] Address [address] [place] [address] Care Team Providers Care Research Program Assistant Name Role Phone [employer] Primary [...] PRESCRIPT ION RX PLAN Nov 17, 2018 [facility] [id number] [phone] Jose CURRY PATIENT [employer] [facility] PRESCRIPT ION [facility] Nov 17, 2018 [facility] [id number] [phone] Jose CRURY PATIENT [facility] SECUR ITY Nov 17, 2018 [id number] [phone] Jose CURRY PATIENT [facility] SEC[facility] IT[facility] Nov 17, 2018 [id number] Jose CURRY PATIENT [facility] PREFERRED PROVIDER ORGANIZAT ION (PPO) WHEJEROD N SECUR ITY Nov 17, 2018 [id number] [phone] Jose CURRYS PATIENT [facility] PREFERRED PROVIDER ORGANIZAT ION (PPO) JOSE FRIEDMAN Nov 17, 2018 [id number] RAYSHAWNJose KILO PATIENT Selected Encounter This section includes the information on record at [place] for the Encounter. Date/Time Encounter Type Encounter Description Reason Provider Source Oct 09, 2024 10:57 AM Outpatient Encounter ANESTHESIA PRE/POST-OP CONSULT ICD-10-CM Z04.89 Encounter for examination and observation for oth reasons DAYSI BRAGA Tatyana Encounter Template Text not used by [place] Assessments - Encounter Diagnoses This section includes the primary and secondary diagnoses documented for the Encounter. Date/Time Primary/Secondary Diagnosis Diagnosis Name Provider Source Oct 09, 2024 11:12 AM PRIMARY Encounter for examination and observation for oth reasons SARAH BRAGA [facility] Oct 09, 2024 11:12 AM SECONDARY Alcohol use, unspecified, uncomplicated SARAH BRAGA [facility] Oct 09, 2024 11:12 AM SECONDARY Carpal tunnel syndrome, bilateral upper limbs SARAH BRAGA [facility] Oct 09, 2024 11:12 AM SECONDARY Hypokalemia SARAH BRAGA [facility] Oct 09, 2024 11:12 AM SECONDARY Tobacco use SARAH BRAGA [facility] Plan of Treatment: Future Appointments (+ 6 months) and Future Tests (+/- 45 days) The Plan of Treatment section includes future care activities for the patient [facility] [place] [facility] This section includes future appointments [...] 18, 2024 11:30 AM AMBULATORY - MEDICINE [facility] Nov 23, 2024 02:00 PM AMBULATORY - PSYCHIATRY [facility] Nov 30, 2024 12:40 PM AMBULATORY - SURGERY [facility] Feb 17, 2025 11:30 AM AMBULATORY - MEDICINE [facility] Active, Pending, and Scheduled Orders This section includes a listing of several types of active, pending, and scheduled orders, including clinic medications orders, diagnostic test orders, procedure orders and consult orders; where the start date of the order is 45 days before the date of the Encounter or 45 days after the date of theEncounter. The data comes from all [place] treatment facilities. Test Date/Time Test Type Test Details Facility Name Oct 03, 2024 12:00 AM Laboratory - Chemi stry Order CBC BLOOD SP [facility] Oct 03, 2024 12:00 AM Laboratory - Chemi stry Order BASIC METABOLIC PANEL GREEN LI/HEP BLD/PLAS PLASMA SP [facility] Social History: Smoking Status (Most current) and Tobacco Use (All prior to encounter date) This section includes the most current, and the historical, smoking and tobacco- related health factors from the [place] facility where the Encounter took place. Current Smoking Status This section includes the most current smoking, or tobacco-related health factor, from the [place] facility where the Encounter took place. Date/Time Current Smoking Status Comment Facil ity Aug 05, 2024 11:55 AM VA-TOBACCO FORMER USER [facility] Tobacco Use History This section includes a history of the smoking, or tobacco-related health factors, that were collected on or before the date of the Encounter. The data comes from the [place] facility where the Encounter took place. 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 [facility] May 07, 2023 06:21 AM ORYX DAILY TOBACCO MEDS REFUSED [facility] Oct 27, 2013 02:51 PM QUIT TOBACCO >7 YEARS AGO [facility] Jan 07, 2013 10:01 AM CURRENT TOBACCO USER [facility] Jan 07, 2013 10:01 AM TOBACCO MEDS OFFER ED BUT DECLINED [facility] Sep 18, 2011 12:08 PM QUIT TOBACCO IN TH E LAST 12 MONTHS [facility] Jul 25, 2011 03:33 PM CURRENT TOBACCO USER [facility] Jul 20, 2010 10:35 AM QUIT TOBACCO IN TH E LAST 12 MONTHS [facility] Advance Directives: All historical and [...] Provider Source May 07, 2023 ADVANCE DIRECTIVE CARLITOS ENRIQUEZASHCe Garcia [facility] Encounter Notes: All associated encounter notes This section contains the clinical notes associated to the Encounter. Date/Time Encounter Note(s) Provider Source Oct 26, 2024 07:58 AM ADDENDUM: LOCAL TITLE: Addendum STANDARD TITLE: ADDENDUM DATE OF NOTE: OCT 26, 2024@07:58:12 ENTRY DATE: OCT 26, 2024@07:58:13 AUTHOR: KELLY STEVEN EXP COSIGNER: URGENCY: STATUS: COMPLETED Per Plastic Surgery team 10/22/24: CAlled to follow up. [place] requests to be taken off surgery rotation. [place] informed he will call to schedule an appointment when he is ready. I will stop following. Please submit a new consult if/when surgery is rescheduled. /loyda/ KELLY STEVEN PA-C Physician Trauma Therapist, Anesthesiology Signed: 10/26/2024 07:58 Receipt Acknowledged By: 10/26/2024 09:13 /loyda/ LON RODRIGUEZ RN Case Manager, Plastic Surgery --- Original Document --- 10/09/24 E-CONSULT ANESTHESIA STL: ELEONORA CURRY is a 44 year old MALE The reason for eConsult: Pre-operative evaluation I have reviewed pertinent documentation in the electronic medical record for this patient. The recommendations/findings offered are the result of information from the requesting provider and a chart review only. The 's chart was reviewed. The patient is scheduled for CTR on TBD. VITALS Age: 44 Weight: 163 lb [73.94 kg] (09/28/2024 11:47) Height: 71 in [180.3 cm] (09/28/2024 11:47) BMI: 22.8 Blood pressure: 125/88 (09/28/2024 11:47) Pulse: 122 (09/28/2024 11:47) Temperature: 97.9 F [36.6 C] (09/28/2024 11:47) Respiration: 16 (09/28/2024 11:47) SpO2: 100% (09/28/2024 11:47) Pain: 6 (09/28/2024 11:47) ALLERGIES Patient has answered NKA MEDICATIONS Active Outpatient Medications (including Supplies): Active Outpatient Medications Status 1) HYDROXYZINE HCL 25MG TAB TAKE ONE TABLET BY MOUTH ACTIVE THREE TIMES A DAY NEEDED *MAY CAUSE DROWSINESS* 2) MIRTAZAPINE 30MG TAB TAKE ONE-HALF TABLET BY MOUTH AT ACTIVE BEDTIME 3) PREGABALIN 50MG ORAL CAP TAKE ONE CAPSULE BY MOUTH HOLD TWICE A DAY *MAY CAUSE DROWSINESS* LABS WBC 7.1 10*3/uL 03/30/2024 12:02 RBC 4.14 [...] 05/06/2023 20:27 TARGET CELLS 2+ 05/06/2023 20:27 INR VALUE 1.1 INR 05/06/2023 21:30 PROTIME 11.9 sec 05/06/2023 21:30 No PTT EO data found SODIUM 139 mEq/L 03/30/2024 12:02 POTASSIUM 3.8 mEq/L 03/30/2024 12:02 CHLORIDE 103 mEq/L 03/30/2024 12:02 UREA NITROGEN 7.5 L mg/dL 03/30/2024 12:02 CREATININE 0.78 mg/dL 03/30/2024 12:02 CALCIUM 9.5 mg/dL 03/30/2024 12:02 PROTEIN 6.9 g/dL 03/30/2024 12:02 ALBUMIN 4.3 g/dL 03/30/2024 12:02 ALKALINE PHOSPHATASE 57 U/L 03/30/2024 12:02 ALT/SGPT 24 U/L 03/30/2024 12:02 AST/SGOT 31 U/L 03/30/2024 12:02 TOTAL BILIRUBIN 0.6 mg/dL 03/30/2024 12:02 CARBON DIOXIDE 27 mEq/L 03/30/2024 12:02 GLUCOSE 104 H mg/dL 03/30/2024 12:02 EGFR (CKD-EPI 2020) 114.19 03/30/2024 12:02 HGA1C 4.8 % 03/30/2024 12:02 URINE COLOR Yellow 05/06/2023 22:15 APPEARANCE Turbid 05/06/2023 22:15 U.PH 7.0 05/06/2023 22:15 U.BILIRUBIN 1+ H mg/dL 05/06/2023 22:15 U.NITRITE Negative mg/dL 05/06/2023 22:15 URINE WBC/HPF 2 /HPF 05/06/2023 22:15 BACTERIA OCC /HPF 05/06/2023 22:15 SQUAMOUS EPITH. <1 /HPF 05/06/2023 22:15 AMPHET/METHAMPHETAMINE Negative ng/mL 03/30/2024 12:07 BENZODIAZEPINES (STL) Negative ng/mL 03/30/2024 12:07 CANNABINOIDS 94-POS ng/mL 03/30/2024 12:07 COCAINE METABOLITES Negative ng/mL 03/30/2024 12:07 OPIATES Negative ng/mL 03/30/2024 12:07 No TEST LAST ONE EO data found HIV COMBO FOURTH GENERATION ([place]) Negative 05/11/2012 11:49 [facility] Hep C tests in last five years. HEP C Ab HCV Ab (STL) Nonreactive S/CO (05/07/23 06:00) DIAGNOSTICS CXR: Impression for CHEST PORTABLE, 02/21/21, case 2003 The lungs are clear without pneumothorax, large pleural effusion, focal consolidation. The heart size is normal. Mediastinal contours are normal. EK09/29/2024 19:14 Local Title: EKG CONSULT ST Standard Title: CARDIOLOGY DIAGNOSTIC STUDY CONSULT AUTHOR: CLINICAL,DEVICE PROXY SERVICE DOCUMENT IN [employer] [facility] SEE FULL REPORT IN [facility] SIGNATURE NOT REQUIRED SEE SIGNATURE IN VISTA IMAGING ([place] E[facility]) AUTO-INSTRUMENT DIAGNOSIS Procedure: 39205 12 Lead ECG Release Status: Released Off-Line Verified Date Verified: Sep 29, 2024@19:14:31 48961.2 Ventricular Rate: 111 BPM 85335.3 Atrial Rate: 111 BPM 99545.4 P-R Interval: 134 ms 44060.5 QRS Duration: 92 ms 44280.6 Q-T Interval: 344 ms 03038 QTC Calculation(Bazett)467 ms 48125.12 Calculated P Lily: 69 degrees 73616.13 Calculated R Lily: 59 degrees 43395.14 Calculated T Lily: 38 degrees Sinus tachycardia Otherwise normal ECG When compared with ECG of 15-MAR-2024 12:35, Nonspecific T wave abnormality no longer evident in Anterior leads Administrative Closure: 09/29/2024 by: CLINICAL,DEVICE PROXY SERVICE < THE ABOVE NOTE IS UNSIGNED > - DRAFT COPY * DRAFT COPY * DRAFT COPY * DRAFT COPY * DRAFT COPY * DRAFT COPY - PFT: No Pulmonary Function Test for this patient. Echocardiogram: Stress test: No Stress Test Data available LOCAL TITLE: E-CONSULT CARDIOLOGY OUTPT [facility] STANDARD TITLE: CONSULT DATE OF NOTE: OCT 03, 2024@13:46 ENTRY DATE: OCT 03, 2024@13:46:59 AUTHOR: KWAME ROSE COSIGNER: URGENCY: STATUS: COMPLETED The reason for [...] only. ECG Date Verified: Sep 29, 2024@19:14:31 64862.2 Ventricular Rate: 111 BPM 96284.3 Atrial Rate: 111 BPM 59947.4 P-R Interval: 134 ms 64993.5 QRS Duration: 92 ms 92928.6 Q-T Interval: 344 ms 76234 QTC Calculation(Bazett)467 ms 87376.12 Calculated P Lily: 69 degrees 87263.13 Calculated R Lily: 59 degrees 17756.14 Calculated T Lily: 38 degrees Sinus tachycardia Otherwise normal ECG When compared with ECG of 15-MAR-2024 12:35, Nonspecific T wave abnormality no longer evident in Anterior leads ECG Date Verified: Mar 15, 2024@12:50:36 12260.2 Ventricular Rate: 88 BPM 22600.3 Atrial Rate: 88 BPM 10598.4 P-R Interval: 144 ms 96879.5 QRS Duration: 100 ms 52953.6 Q-T Interval: 384 ms 42942 QTC Calculation(Bazett)464 ms 17329.12 Calculated P Lily: 40 degrees 74955.13 Calculated R Lily: 12 degrees 78712.14 Calculated T Lily: 13 degrees Normal sinus rhythm 48-hour Ambulatory [...] CLAYTON Love Nurse Practitioner Signed: 10/03/2024 14:18 PROBLEM LIST 1) Low back pain (SNOMED CT 285692061) 2) Traumatic brain injury with no loss of consciousness (SNOMED CT 726411496) 3) Acute posttraumatic stress disorder following combat (SNOMED CT 916295948) 4) Concussion (ICD-9-CM 850.9) 5) Anxiety * (ICD-9-CM 300.00/300.09) 6) Depression * (ICD-9-CM 311./300.4) 7) Attention-deficit hyperactivity disorder * 8) Unemployment 9) Palpitations (ICD-9-CM 785.1) 10) Routine General Medical Examination at a Health Care Facility * (ICD-9-CM V70.0) 11) Lumbosacral radiculopathy (SNOMED CT 0698879) 12) Tobacco use 13) Pain 14) Abnormal blood pressure 15) Chronic depression 16) Admits alcohol use 17) Insomnia 18) Alcohol abuse 19) Hypokalemia 20) Posttraumatic stress disorder 21) Bilateral carpal tunnel syndrome REVIEW OF SYSTEMS/PAST MEDICAL HISTORY RESPIRATORY ?? for: - Sleep apnea - Asthma - COPD CARDIAC ?? for: - Hypertension,, ELEVATED BP W/O DIAGNOSIS OF HTN - Hyperlipidemia - Myocardial infarction - Coronary artery disease - Heart failure - Valvular disease - Atrial fibrillation/flutter PSYCH/CENTRAL NERVOUS ?? for: - Depression - Anxiety + Post-traumatic stress disorder - Cerebral vascular accident - Seizures + TBI + ADHD ENDOCRINE ?? for: - Diabetes - Hypothyroid + HYPOKALEMIA, H/O RENAL ?? for: - Chronic kidney disease - Nephrolithiasis GI ?? for: - GERD - Liver disease - GI bleed VASCULAR/HEMATOLOGY/ONCOLOG Y ?? for: - Anemia - Thrombocytopenia - Bleeding disorders MUSCULOSKELETAL/SKIN/PERIPH ERAL NERVOUS ?? for: - Obesity - Arthritis/Degenerative joint disease - Rheumatoid arthritis - Neuropathy /REPRODUCTIVE ?? for: - Prostate hypertrophy HABITS Tobacco : Using few cigarettes and pouch ETOH: 2-3 times per week, few drink each time. OTHER: marijuina daily SURGICAL HISTORY Reviewed Previous anesthesia complications: None discovered in chart review Family history of anesthesia complications: None discovered in chart review PHYSICAL EXAM Per day of surgery team ASA CLASS 2. A patient with mild systemic disease. ANESTHETIC PLAN Per day of surgery team IMPRESSION/RECOMMENDATIONS additional labs/imaging/consults needed for anesthesia team: PER CARDIOLOGY: If the is able to complete >4 METS without any cardiopulmonary symptoms, then no further cardiac evaluation is needed prior to surgery. Please contact preoperatively, prior to DOS, to assess functional status. If <4 METS, please refer back to Cardiology for further evaluation. + Anesthesiology team will reassess day of procedure + NPO past midnight except for sips with meds + Anticoagulation and antithrombotics per procedural team + Unless directed by procedural team, take morning medications with a sip of water EXCEPT FOR: ~ Please instruct patient to HOLD lisinopril and DM meds AM of surgery. (if taking) ~ Please hold SGLT2 Inhibitor (e.g. Empagliflozin): HOLD Three (3) Days Prior to Surgery (if taking) ~ Please HOLD GLP-1 agonists (i.e. Ozempic), for one week PRIOR to surgery (if taking) /loyda/ SARAH BRAGA MD STAFF ANESTHESIOLOGIST Signed: 10/09/2024 11:12 Receipt Acknowledged By: 10/11/2024 07:40 /loyda/ KELLY STEVEN PA-C Physician Trauma Therapist, Anesthesiology 10/12/2024 14:45 /loyda/ LON RODRIGUEZ RN Case Manager, Plastic Surgery 10/15/2024 ADDENDUM STATUS: COMPLETED I spoke with Mr. Curry today. He denies any cardiac or pulmonary issues. No CP. He is able to walk up 2 flights of stairs/walk 2 blocks/vaccuum, etc without dyspnea. He may proceed as planned. /saranya STEVEN PA-C Physician Trauma Therapist, Anesthesiology Signed: 10/15/2024 10:11 Receipt Acknowledged By: 10/22/2024 11:38 /saranya RODRIGUEZ RN Case Manager, Plastic Surgery KELLY STEVEN [facility] Oct 15, 2024 10:09 AM ADDENDUM: LOCAL TITLE: Addendum STANDARD TITLE: ADDENDUM DATE OF NOTE: OCT 15, 2024@10:09:51 ENTRY DATE: OCT 15, 2024@10:09:52 AUTHOR: KELLY STEVEN EXP COSIGNER: URGENCY: STATUS: COMPLETED I spoke with Mr. Curry today. He denies any cardiac or pulmonary issues. No CP. He is able to walk up 2 flights of stairs/walk 2 blocks/vaccuum, etc without dyspnea. He may proceed as planned. /es/ KELLY STEVEN PA-C Physician Trauma Therapist, Anesthesiology Signed: 10/15/2024 10:11 Receipt Acknowledged By: 10/22/2024 11:38 /es/ LON RODRIGUEZ RN Case Manager, Plastic Surgery --- Original Document --- 10/09/24 E-CONSULT ANESTHESIA STL: ELEONORA CURRY is a 44 year old MALE The reason for eConsult: Pre-operative evaluation I have reviewed pertinent documentation in the electronic medical record for this patient. The recommendations/findings offered are the result of information from the requesting provider and a chart review only. The 's chart was reviewed. The patient is scheduled for CTR on TBD. VITALS Age: 44 Weight: 163 lb [73.94 kg] (09/28/2024 11:47) Height: 71 in [180.3 cm] (09/28/2024 11:47) BMI: 22.8 Blood pressure: 125/88 (09/28/2024 11:47) Pulse: 122 (09/28/2024 11:47) Temperature: 97.9 F [36.6 C] (09/28/2024 11:47) Respiration: 16 (09/28/2024 11:47) SpO2: 100% (09/28/2024 11:47) Pain: 6 (09/28/2024 11:47) ALLERGIES Patient has answered NKA MEDICATIONS Active Outpatient Medications (including Supplies): Active Outpatient Medications Status 1) HYDROXYZINE HCL 25MG TAB TAKE ONE TABLET BY MOUTH ACTIVE THREE TIMES A DAY NEEDED *MAY CAUSE DROWSINESS* 2) MIRTAZAPINE 30MG TAB TAKE ONE-HALF TABLET BY MOUTH AT ACTIVE BEDTIME 3) PREGABALIN 50MG ORAL CAP TAKE ONE CAPSULE BY MOUTH HOLD TWICE A DAY *MAY CAUSE DROWSINESS* LABS WBC 7.1 10*3/uL 03/30/2024 12:02 RBC 4.14 [...] 05/06/2023 20:27 TARGET CELLS 2+ 05/06/2023 20:27 INR VALUE 1.1 INR 05/06/2023 21:30 PROTIME 11.9 sec 05/06/2023 21:30 No PTT EO data found SODIUM 139 mEq/L 03/30/2024 12:02 POTASSIUM 3.8 mEq/L 03/30/2024 12:02 CHLORIDE 103 mEq/L 03/30/2024 12:02 UREA NITROGEN 7.5 L mg/dL 03/30/2024 12:02 CREATININE 0.78 mg/dL 03/30/2024 12:02 CALCIUM 9.5 mg/dL 03/30/2024 12:02 PROTEIN 6.9 g/dL 03/30/2024 12:02 ALBUMIN 4.3 g/dL 03/30/2024 12:02 ALKALINE PHOSPHATASE 57 U/L 03/30/2024 12:02 ALT/SGPT 24 U/L 03/30/2024 12:02 AST/SGOT 31 U/L 03/30/2024 12:02 TOTAL BILIRUBIN 0.6 mg/dL 03/30/2024 12:02 CARBON DIOXIDE 27 mEq/L 03/30/2024 12:02 GLUCOSE 104 H mg/dL 03/30/2024 12:02 EGFR (CKD-EPI 2020) 114.19 03/30/2024 12:02 HGA1C 4.8 % 03/30/2024 12:02 URINE COLOR Yellow 05/06/2023 22:15 APPEARANCE Turbid 05/06/2023 22:15 U.PH 7.0 05/06/2023 22:15 U.BILIRUBIN 1+ H mg/dL 05/06/2023 22:15 U.NITRITE Negative mg/dL 05/06/2023 22:15 URINE WBC/HPF 2 /HPF 05/06/2023 22:15 BACTERIA OCC /HPF 05/06/2023 22:15 SQUAMOUS EPITH. <1 /HPF 05/06/2023 22:15 AMPHET/METHAMPHETAMINE Negative ng/mL 03/30/2024 12:07 BENZODIAZEPINES (STL) Negative ng/mL 03/30/2024 12:07 CANNABINOIDS 94-POS ng/mL 03/30/2024 12:07 COCAINE METABOLITES Negative ng/mL 03/30/2024 12:07 OPIATES Negative ng/mL 03/30/2024 12:07 No TEST LAST ONE EO data found HIV COMBO FOURTH GENERATION ([place]) Negative 05/11/2012 11:49 [facility] Hep C tests in last five years. HEP C Ab HCV Ab (STL) Nonreactive S/CO (05/07/23 06:00) DIAGNOSTICS CXR: Impression for CHEST PORTABLE, 02/21/21, case 2003 The lungs are clear without pneumothorax, large pleural effusion, focal consolidation. The heart size is normal. Mediastinal contours are normal. EK09/29/2024 19:14 Local Title: EKG CONSULT ST Standard Title: CARDIOLOGY DIAGNOSTIC STUDY CONSULT AUTHOR: CLINICAL,DEVICE PROXY SERVICE DOCUMENT IN [facility] SEE FULL REPORT IN [facility] SIGNATURE NOT REQUIRED SEE SIGNATURE IN [facility]IST[facility] IMAGING ([place] EKG) AUTO-INSTRUMENT DIAGNOSIS Procedure: [id number] 12 Lead ECG Release Status: Released Off-Line Verified Date Verified: Sep 29, 2024@19:14:31 99664.2 Ventricular Rate: 111 BPM 92950.3 Atrial Rate: 111 BPM 66412.4 P-R Interval: 134 ms 97631.5 QRS Duration: 92 ms 29510.6 Q-T Interval: 344 ms 24967 QTC Calculation(Bazett)467 ms 72626.12 Calculated P Lily: 69 degrees 24961.13 Calculated R Lily: 59 degrees 57086.14 Calculated T Lily: 38 degrees Sinus tachycardia Otherwise normal ECG When compared with ECG of 15-MAR-2024 12:35, Nonspecific T wave abnormality no longer evident in Anterior leads Administrative Closure: 09/29/2024 by: CLINICAL,DEVICE PROXY SERVICE < THE ABOVE NOTE IS UNSIGNED > - DRAFT COPY * DRAFT COPY * DRAFT COPY * DRAFT COPY * DRAFT COPY * DRAFT COPY - PFT: No Pulmonary Function Test for this patient. Echocardiogram: Stress test: No Stress Test Data available LOCAL TITLE: E-CONSULT CARDIOLOGY OUTPT ST STANDARD TITLE: CONSULT DATE OF NOTE: OCT 03, 2024@13:46 ENTRY DATE: OCT 03, 2024@13:46:59 AUTHOR: KWAME ROSE COSIGNER: URGENCY: STATUS: COMPLETED The reason for [...] only. ECG Date Verified: Sep 29, 2024@19:14:31 06304.2 Ventricular Rate: 111 BPM 46530.3 Atrial Rate: 111 BPM 76607.4 P-R Interval: 134 ms 25502.5 QRS Duration: 92 ms 92001.6 Q-T Interval: 344 ms 30050 QTC Calculation(Bazett)467 ms 50500.12 Calculated P Lily: 69 degrees 84856.13 Calculated R Lily: 59 degrees 94476.14 Calculated T Lily: 38 degrees Sinus tachycardia Otherwise normal ECG When compared with ECG of 15-MAR-2024 12:35, Nonspecific T wave abnormality no longer evident in Anterior leads ECG Date Verified: Mar 15, 2024@12:50:36 21844.2 Ventricular Rate: 88 BPM 99813.3 Atrial Rate: 88 BPM 31617.4 P-R Interval: 144 ms 22350.5 QRS Duration: 100 ms 30519.6 Q-T Interval: 384 ms 00597 QTC Calculation(Bazett)464 ms 79999.12 Calculated P Lily: 40 degrees 08895.13 Calculated R Lily: 12 degrees 00959.14 Calculated T Lily: 13 degrees Normal sinus rhythm 48-hour Ambulatory [...] patient's complaint of palpitations. Diagnosis and/or Impression: [place] is a 44 yo with a past [...] sinus rhythm HR 88. Per PCP notes, has hx of ADHD and is taking [...] CLAYTON Love Nurse Practitioner Signed: 10/03/2024 14:18 PROBLEM LIST 1) Low back pain (SNOMED CT 845419061) 2) Traumatic brain injury with no loss of consciousness (SNOMED CT 901826279) 3) Acute posttraumatic stress disorder following combat (SNOMED CT 718437056) 4) Concussion (ICD-9-CM 850.9) 5) Anxiety * (ICD-9-CM 300.00/300.09) 6) Depression * (ICD-9-CM 311./300.4) 7) Attention-deficit hyperactivity disorder * 8) Unemployment 9) Palpitations (ICD-9-CM 785.1) 10) Routine General Medical Examination at a Health Care Facility * (ICD-9-CM V70.0) 11) Lumbosacral radiculopathy (SNOMED CT 2551813) 12) Tobacco use 13) Pain 14) Abnormal blood pressure 15) Chronic depression 16) Admits alcohol use 17) Insomnia 18) Alcohol abuse 19) Hypokalemia 20) Posttraumatic stress disorder 21) Bilateral carpal tunnel syndrome REVIEW OF SYSTEMS/PAST MEDICAL HISTORY RESPIRATORY ?? for: - Sleep apnea - Asthma - COPD CARDIAC ?? for: - Hypertension,, ELEVATED BP W/O DIAGNOSIS OF HTN - Hyperlipidemia - Myocardial infarction - Coronary artery disease - Heart failure - Valvular disease - Atrial fibrillation/flutter PSYCH/CENTRAL NERVOUS ?? for: - Depression - Anxiety + Post-traumatic stress disorder - Cerebral vascular accident - Seizures + TBI + ADHD ENDOCRINE ?? for: - Diabetes - Hypothyroid + HYPOKALEMIA, H/O RENAL ?? for: - Chronic kidney disease - Nephrolithiasis GI ?? for: - GERD - Liver disease - GI bleed VASCULAR/HEMATOLOGY/ONCOLOG Y ?? for: - Anemia - Thrombocytopenia - Bleeding disorders MUSCULOSKELETAL/SKIN/PERIPH ERAL NERVOUS ?? for: - Obesity - Arthritis/Degenerative joint disease - Rheumatoid arthritis - Neuropathy /REPRODUCTIVE ?? for: - Prostate hypertrophy HABITS Tobacco : Using few cigarettes and pouch ETOH: 2-3 times per week, few drink each time. OTHER: marijuina daily SURGICAL HISTORY Reviewed Previous anesthesia complications: None discovered in chart review Family history of anesthesia complications: None discovered in chart review PHYSICAL EXAM Per day of surgery team ASA CLASS 2. A patient with mild systemic disease. ANESTHETIC PLAN Per day of surgery team IMPRESSION/RECOMMENDATIONS additional labs/imaging/consults needed for anesthesia team: PER CARDIOLOGY: If the is able to complete >4 METS without any cardiopulmonary symptoms, then no further cardiac evaluation is needed prior to surgery. Please contact preoperatively, prior to DOS, to assess functional status. If <4 METS, please refer back to Cardiology for further evaluation. + Anesthesiology team will reassess day of procedure + NPO past midnight except for sips with meds + Anticoagulation and antithrombotics per procedural team + Unless directed by procedural team, take morning medications with a sip of water EXCEPT FOR: ~ Please instruct patient to HOLD lisinopril and DM meds AM of surgery. (if taking) ~ Please hold SGLT2 Inhibitor (e.g. Empagliflozin): HOLD Three (3) Days Prior to Surgery (if taking) ~ Please HOLD GLP-1 agonists (i.e. Ozempic), for one week PRIOR to surgery (if taking) /loyda/ SARAH BRAGA MD STAFF ANESTHESIOLOGIST Signed: 10/09/2024 11:12 Receipt Acknowledged By: 10/11/2024 07:40 /loyda/ KELLY STEVEN PA-C Physician Trauma Therapist, Anesthesiology 10/12/2024 14:45 /loyda/ LON RODRIGUEZ RN Case Manager, Plastic Surgery KELLY STEVEN [facility] Oct 09, 2024 10:57 AM CONSULT: LOCAL TITLE: E-CONSULT ANESTHESIA STL STANDARD TITLE: CONSULT DATE OF NOTE: OCT 09, 2024@10:57 ENTRY DATE: OCT 09, 2024@10:57:46 AUTHOR: SARAH BRAGA EXP COSIGNER: URGENCY: STATUS: COMPLETED E-CONSULT ANESTHESIA STL Has ADDENDA ELEONORA CURRY is a 44 year old MALE The reason for eConsult: Pre-operative evaluation I have reviewed pertinent documentation in the electronic medical record for this patient. The recommendations/findings offered are the result of information from the requesting provider and a chart review only. The 's chart was reviewed. The patient is scheduled for CTR on TBD. VITALS Age: 44 Weight: 163 lb [73.94 kg] (09/28/2024 11:47) Height: 71 in [180.3 cm] (09/28/2024 11:47) BMI: 22.8 Blood pressure: 125/88 (09/28/2024 11:47) Pulse: 122 (09/28/2024 11:47) Temperature: 97.9 F [36.6 C] (09/28/2024 11:47) Respiration: 16 (09/28/2024 11:47) SpO2: 100% (09/28/2024 11:47) Pain: 6 (09/28/2024 11:47) ALLERGIES Patient has answered NKA MEDICATIONS Active Outpatient Medications (including Supplies): Active Outpatient Medications Status 1) HYDROXYZINE HCL 25MG TAB TAKE ONE TABLET BY MOUTH ACTIVE THREE TIMES A DAY NEEDED *MAY CAUSE DROWSINESS* 2) MIRTAZAPINE 30MG TAB TAKE ONE-HALF TABLET BY MOUTH AT ACTIVE BEDTIME 3) PREGABALIN 50MG ORAL CAP TAKE ONE CAPSULE BY MOUTH HOLD TWICE A DAY *MAY CAUSE DROWSINESS* LABS WBC 7.1 10*3/uL 03/30/2024 12:02 RBC 4.14 [...] 05/06/2023 20:27 TARGET CELLS 2+ 05/06/2023 20:27 INR VALUE 1.1 INR 05/06/2023 21:30 PROTIME 11.9 sec 05/06/2023 21:30 No PTT EO data found SODIUM 139 mEq/L 03/30/2024 12:02 POTASSIUM 3.8 mEq/L 03/30/2024 12:02 CHLORIDE 103 mEq/L 03/30/2024 12:02 UREA NITROGEN 7.5 L mg/dL 03/30/2024 12:02 CREATININE 0.78 mg/dL 03/30/2024 12:02 CALCIUM 9.5 mg/dL 03/30/2024 12:02 PROTEIN 6.9 g/dL 03/30/2024 12:02 ALBUMIN 4.3 g/dL 03/30/2024 12:02 ALKALINE PHOSPHATASE 57 U/L 03/30/2024 12:02 ALT/SGPT 24 U/L 03/30/2024 12:02 AST/SGOT 31 U/L 03/30/2024 12:02 TOTAL BILIRUBIN 0.6 mg/dL 03/30/2024 12:02 CARBON DIOXIDE 27 mEq/L 03/30/2024 12:02 GLUCOSE 104 H mg/dL 03/30/2024 12:02 EGFR (CKD-EPI 2020) 114.19 03/30/2024 12:02 HGA1C 4.8 % 03/30/2024 12:02 URINE COLOR Yellow 05/06/2023 22:15 APPEARANCE Turbid 05/06/2023 22:15 U.PH 7.0 05/06/2023 22:15 U.BILIRUBIN 1+ H mg/dL 05/06/2023 22:15 U.NITRITE Negative mg/dL 05/06/2023 22:15 URINE WBC/HPF 2 /HPF 05/06/2023 22:15 BACTERIA OCC /HPF 05/06/2023 22:15 SQUAMOUS EPITH. <1 /HPF 05/06/2023 22:15 AMPHET/METHAMPHETAMINE Negative ng/mL 03/30/2024 12:07 BENZODIAZEPINES (STL) Negative ng/mL 03/30/2024 12:07 CANNABINOIDS 94-POS ng/mL 03/30/2024 12:07 COCAINE METABOLITES Negative ng/mL 03/30/2024 12:07 OPIATES Negative ng/mL 03/30/2024 12:07 No TEST LAST ONE EO data found HIV COMBO FOURTH GENERATION ([place]) Negative 05/11/2012 11:49 [facility] Hep C tests in last five years. HEP C Ab HCV Ab (STL) Nonreactive S/CO (05/07/23 06:00) DIAGNOSTICS CXR: Impression for CHEST PORTABLE, 02/21/21, case 2003 The lungs are clear without pneumothorax, large pleural effusion, focal consolidation. The heart size is normal. Mediastinal contours are normal. EK09/29/2024 19:14 Local Title: EKG CONSULT ST Standard Title: CARDIOLOGY DIAGNOSTIC STUDY CONSULT AUTHOR: CLINICAL,DEVICE PROXY SERVICE DOCUMENT IN [employer] [facility] SEE FULL REPORT IN VISTA IMAGING SIGNATURE NOT REQUIRED SEE SIGNATURE IN [employer] [facility] ([place] EKG) AUTO-INSTRUMENT DIAGNOSIS Procedure: 16210 12 Lead ECG Release Status: Released Off-Line Verified Date Verified: Sep 29, 2024@19:14:31 58881.2 Ventricular Rate: 111 BPM 82026.3 Atrial Rate: 111 BPM 72674.4 P-R Interval: 134 ms 69851.5 QRS Duration: 92 ms 16493.6 Q-T Interval: 344 ms 14950 QTC Calculation(Bazett)467 ms 10395.12 Calculated P Lily: 69 degrees 27960.13 Calculated R Lily: 59 degrees 73142.14 Calculated T Lily: 38 degrees Sinus tachycardia Otherwise normal ECG When compared with ECG of 15-MAR-2024 12:35, Nonspecific T wave abnormality no longer evident in Anterior leads Administrative Closure: 09/29/2024 by: CLINICAL,DEVICE PROXY SERVICE < THE ABOVE NOTE IS UNSIGNED > - DRAFT COPY * DRAFT COPY * DRAFT COPY * DRAFT COPY * DRAFT COPY * DRAFT COPY - PFT: No Pulmonary Function Test for this patient. Echocardiogram: Stress test: No Stress Test Data available LOCAL TITLE: E-CONSULT CARDIOLOGY OUTPT ST STANDARD TITLE: CONSULT DATE OF NOTE: OCT [...] only. ECG Date Verified: Sep 29, 2024@19:14:31 16921.2 Ventricular Rate: 111 BPM 54783.3 Atrial Rate: 111 BPM 10782.4 P-R Interval: 134 ms 61697.5 QRS Duration: 92 ms 37598.6 Q-T Interval: 344 ms 30146 QTC Calculation(Bazett)467 ms 32216.12 Calculated P Lily: 69 degrees 01206.13 Calculated R Lily: 59 degrees 18964.14 Calculated T Lily: 38 degrees Sinus tachycardia Otherwise normal ECG When compared with ECG of 15-MAR-2024 12:35, Nonspecific T wave abnormality no longer evident in Anterior leads ECG Date Verified: Mar 15, 2024@12:50:36 57846.2 Ventricular Rate: 88 BPM 23010.3 Atrial Rate: 88 BPM 15482.4 P-R Interval: 144 ms 02135.5 QRS Duration: 100 ms 44805.6 Q-T Interval: 384 ms 02013 QTC Calculation(Bazett)464 ms 13837.12 Calculated P Lily: 40 degrees 12014.13 Calculated R Lily: 12 degrees 33223.14 Calculated T Lily: 13 degrees Normal sinus rhythm 48-hour Ambulatory [...] patient's complaint of palpitations. Diagnosis and/or Impression: [place] is a 44 yo with a past [...] sinus rhythm HR 88. Per PCP notes, has hx of ADHD and is taking [...] CLAYTON Love Nurse Practitioner Signed: 10/03/2024 14:18 PROBLEM LIST 1) Low back pain (SNOMED CT 479693867) 2) Traumatic brain injury with no loss of consciousness (SNOMED CT 212958779) 3) Acute posttraumatic stress disorder following combat (SNOMED CT 634453383) 4) Concussion (ICD-9-CM 850.9) 5) Anxiety * (ICD-9-CM 300.00/300.09) 6) Depression * (ICD-9-CM 311./300.4) 7) Attention-deficit hyperactivity disorder * 8) Unemployment 9) Palpitations (ICD-9-CM 785.1) 10) Routine General Medical Examination at a Health Care Facility * (ICD-9-CM V70.0) 11) Lumbosacral radiculopathy (SNOMED CT 2434923) 12) Tobacco use 13) Pain 14) Abnormal blood pressure 15) Chronic depression 16) Admits alcohol use 17) Insomnia 18) Alcohol abuse 19) Hypokalemia 20) Posttraumatic stress disorder 21) Bilateral carpal tunnel syndrome REVIEW OF SYSTEMS/PAST MEDICAL HISTORY RESPIRATORY ?? for: - Sleep apnea - Asthma - COPD CARDIAC ?? for: - Hypertension,, ELEVATED BP W/O DIAGNOSIS OF HTN - Hyperlipidemia - Myocardial infarction - Coronary artery disease - Heart failure - Valvular disease - Atrial fibrillation/flutter PSYCH/CENTRAL NERVOUS ?? for: - Depression - Anxiety + Post-traumatic stress disorder - Cerebral vascular accident - Seizures + TBI + ADHD ENDOCRINE ?? for: - Diabetes - Hypothyroid + HYPOKALEMIA, H/O RENAL ?? for: - Chronic kidney disease - Nephrolithiasis GI ?? for: - GERD - Liver disease - GI bleed VASCULAR/HEMATOLOGY/ONCOLOG Y ?? for: - Anemia - Thrombocytopenia - Bleeding disorders MUSCULOSKELETAL/SKIN/PERIPH ERAL NERVOUS ?? for: - Obesity - Arthritis/Degenerative joint disease - Rheumatoid arthritis - Neuropathy /REPRODUCTIVE ?? for: - Prostate hypertrophy HABITS Tobacco : Using few cigarettes and pouch ETOH: 2-3 times per week, few drink each time. OTHER: marijuina daily SURGICAL HISTORY Reviewed Previous anesthesia complications: None discovered in chart review Family history of anesthesia complications: None discovered in chart review PHYSICAL EXAM Per day of surgery team ASA CLASS 2. A patient with mild systemic disease. ANESTHETIC PLAN Per day of surgery team IMPRESSION/RECOMMENDATIONS additional labs/imaging/consults needed for anesthesia team: PER CARDIOLOGY: If the is able to complete >4 METS without any cardiopulmonary symptoms, then no further cardiac evaluation is needed prior to surgery. Please contact preoperatively, prior to DOS, to assess functional status. If <4 METS, please refer back to Cardiology for further evaluation. + Anesthesiology team will reassess day of procedure + NPO past midnight except for sips with meds + Anticoagulation and antithrombotics per procedural team + Unless directed by procedural team, take morning medications with a sip of water EXCEPT FOR: ~ Please instruct patient to HOLD lisinopril and DM meds AM of surgery. (if taking) ~ Please hold SGLT2 Inhibitor (e.g. Empagliflozin): HOLD Three (3) Days Prior to Surgery (if taking) ~ Please HOLD GLP-1 agonists (i.e. Ozempic), for one week PRIOR to surgery (if taking) /loyda/ SARAH BRAGA MD STAFF ANESTHESIOLOGIST Signed: 10/09/2024 11:12 Receipt Acknowledged By: 10/11/2024 07:40 /loyda/ KELLY STEVEN PA-C Physician Trauma Therapist, Anesthesiology 10/12/2024 14:45 /loyda/ LON RODRIGUEZ RN Case Manager, Plastic Surgery 10/15/2024 ADDENDUM STATUS: COMPLETED I spoke with Mr. Curry today. He denies any cardiac or pulmonary issues. No CP. He is able to walk up 2 flights of stairs/walk 2 blocks/vaccuum, etc without dyspnea. He may proceed as planned. /loyda/ KELLY STEVEN PA-C Physician Trauma Therapist, Anesthesiology Signed: 10/15/2024 10:11 Receipt Acknowledged By: 10/22/2024 11:38 /loyda/ LON RODRIGUEZ RN Case Manager, Plastic Surgery 10/26/2024 ADDENDUM STATUS: COMPLETED Per Plastic Surgery team 10/22/24: CAlled to follow up. requests to be taken off surgery rotation. informed he will call to schedule an appointment when he is ready. I will stop following. Please submit a new consult if/when surgery is rescheduled. /loyda/ KELLY STEVEN PA-C Physician Trauma Therapist, Anesthesiology Signed: 10/26/2024 07:58 SARAH BRAGA [facility]
--- OUTSIDE RECORDS SUMMARY | 2024-11-14 04:31 | XMS_ITS | Encounter Summary ---
Author Name [facility] [place] Address [address] [place] [address] Care Team Providers Care Casing Mixer Name Role Phone JOSUE NGO Primary Care [...] Policy Cano OPTUM RX PRESCRIPT ION EAL TH Nov 17, 2018 [facility] [id number] [phone] Jose TABARES PATIENT OPTUM RX PRESCRIPT ION RX PLAN Nov 17, 2018 [facility] [id number] Jose TABARES PATIENT [facility] WHELA N SECUR ITY Nov 17, 2018 [id number] Jose TABARES PATIENT [facility] WHELA N SECUR ITY Nov 17, 2018 [id number] [phone] [facility] PREFERRED PROVIDER ORGANIZAT ION (PPO) WHELA N SECUR ITY Nov 17, 2018 [id number] [phone] Jose TABARES PATIENT [facility] PREFERRED PROVIDER ORGANIZAT ION (PPO) JOSE FRIEDMAN Nov 17, 2018 [id number] [phone] RAYSHAWN,Jose KILO PATIENT Selected Encounter This section includes the information on record at [place] for the Encounter. Date/Time Encounter Type Encounter Description Reason Pro vider Source Sep 28, 2024 12:15 PM Outpatient Encounter PLASTIC SURGERY IHE Encounter Template Text not used by [facility] Plan of Treatment: Future Appointments (+ 6 months) and Future Tests (+/- 45 days) The Plan of Treatment section includes future care activities for the patient from all [place] [facility] This section includes future appointments and future orders which are active, pending or scheduled. Future Appointments This section includes appointments that were scheduled to occur 6 months from the date of the Encounter, up to a maximum of 20 appointments. The data comes from all [facility]. Appointment Date/Time Appointment Type Appointme nt Facility Name Nov 18, 2024 11:30 AM AMBULATORY - MEDICINE [facility] Nov 23, 2024 02:00 PM AMBULATORY - PSYCHIATRY [facility] Nov 30, 2024 12:40 PM AMBULATORY - SURGERY [facility] Feb 17, 2025 11:30 AM AMBULATORY - MEDICINE [facility] Active, Pending, and Scheduled Orders This section includes a listing of several types of active, pending, and scheduled orders, including clinic medications orders, diagnostic test orders, procedure orders and consult orders; where the start date of the order is 45 days before the date of the Encounter or 45 days after the date of theEncounter. The data comes from all [facility]. Test Date/Time Test Type Test Details Facility Name Oct 03, 2024 12:00 AM Laboratory - Chemi stry Order CBC BLOOD SP [facility] Oct 03, 2024 12:00 AM Laboratory - Chemi stry Order BASIC METABOLIC PANEL GREEN LI/HEP BLD/PLAS PLASMA SP [facility] Vital Signs: All taken on the encounter date This section contains inpatient and outpatient Vital Signs collected on the date of the Encounter. Date/Time Temperature Pulse Blood Pressure Respiratory Rate SP02 Pain Height Weight Body Mass Index Source Sep 28, 2024 11:47 AM 97.9 122 125/88 16 100 6 71 163 23 [facility] Social History: Smoking Status (Most current) and Tobacco Use (All prior to encounter date) This section includes the most current, and the historical, smoking and tobacco- related health factors from the [place] facility where the Encounter took place. Current Smoking Status This section includes the most current smoking, or tobacco-related health factor, from the [place] facility where the Encounter took place. Date/Time Current Smoking Status Comment Devorah ity Aug 05, 2024 11:55 AM VA-TOBACCO FORMER USER [facility] Tobacco Use History This section includes a history of the smoking, or tobacco-related health factors, that were collected on or before the date of the Encounter. The data comes from the [place] facility where the Encounter took place. Date/Time Smoking Status/Tobacco Use Comment F dayo Aug 05, 2024 11:55 AM VA-TOBACCO QUIT 5 TO < 15 YRS [facility] May 07, 2023 06:21 AM ORYX ADMIT TOBACCO SCREEN YES [facility] May 07, 2023 06:21 AM ORYX ADMIT TOBACCO USE CIGS LS 5D [facility] May 07, 2023 06:21 AM ORYX DAILY TOBACCO FOOD AND NUTRITION SERVICES SUPERVISOR RECEIVED [facility] May 07, 2023 06:21 AM ORYX DAILY TOBACCO MEDS REFUSED [facility] Oct 27, 2013 02:51 PM QUIT TOBACCO >7 YEARS AGO [facility] Jan 07, 2013 10:01 AM CURRENT TOBACCO USER [facility] Jan 07, 2013 10:01 AM TOBACCO MEDS OFFER ED BUT DECLINED [facility] Sep 18, 2011 12:08 PM QUIT TOBACCO IN TH E LAST 12 MONTHS [facility] Jul 25, 2011 03:33 PM CURRENT TOBACCO USER [facility] Jul 20, 2010 10:35 AM QUIT TOBACCO IN TH E LAST 12 MONTHS [facility] Advance Directives: All historical and current Section Date Range: From patient's date of to the date document was created. This section includes ALL of a patient's completed or amended [place] Advance and Rescinded Directives. The entries below indicate that a directive exists for the patient, but an actual copy is not included with this document. The data comes from all [place] facilities. Date Advance Directives Provider Source May 07, 2023 ADVANCE DIRECTIVE MINADARLEEN [facility] Encounter Notes: All associated encounter notes This section contains the clinical notes associated to the Encounter. Date/Time Encounter Note(s) Provider Source Sep 29, 2024 07:14 PM CARDIOLOGY DIAGNOS TIC STUDY CONSULT: LOCAL TITLE: EKG CONSULT STL STANDARD TITLE: CARDIOLOGY DIAGNOSTIC STUDY CONSULT DATE OF NOTE: SEP 29, 2024@19:14:38 ENTRY DATE: SEP 29, 2024@19:14:38 AUTHOR: CLINICAL,DEVICE PRO EXP COSIGNER: URGENCY: STATUS: COMPLETED DOCUMENT IN [email or web address] SEE FULL REPORT IN [facility]ISTA IMAGING SIGNATURE NOT REQUIRED SEE SIGNATURE IN [facility]ISTA IMAGING ([place] EKG) AUTO-INSTRUMENT DIAGNOSIS Procedure: [id number] 12 Lead ECG Release Status: Released Off-Line Verified Date Verified: Sep 29, 2024@19:14:31 89488.2 Ventricular Rate: 111 BPM 56665.3 Atrial Rate: 111 BPM 91940.4 P-R Interval: 134 ms 28617.5 QRS Duration: 92 ms 94836.6 Q-T Interval: 344 ms 65668 QTC Calculation(Bazett)467 ms 05742.12 Calculated P [place]: 69 degrees 77475.13 Calculated R [place]: 59 degrees 74361.14 Calculated T [place]: 38 degrees Sinus tachycardia Otherwise normal ECG When compared with ECG of 15-MAR-2024 12:35, Nonspecific T wave abnormality no longer evident in Anterior leads Administrative Closure: 09/29/2024 by: CLINICAL,DEVICE PROXY SERVICE CLINICAL,DEVICE PROXY SERVICE [facility]
--- OUTSIDE RECORDS SUMMARY | 2024-11-14 04:31 | XMS_ITS | Encounter Summary ---
Author Name [facility] [place] Address [address] [place] [address] Care Team Providers Care Extrusion Die Repair Manager Name Role Phone JOSUE NGO Primary [...] PRESCRIPT ION EAL TH Nov 17, 2018 [facility] [id number] [phone] Jose TABARES PATIENT OPTUM RX PRESCRIPT ION RX PLAN Nov 17, 2018 [facility] [id number] [phone] Jose TABARES PATIENT [facility] WHELA N SECUR ITY Nov 17, 2018 [id number] [phone] Jose TABARES PATIENT [facility] WHELA N SECUR ITY Nov 17, 2018 [id number] [phone] Jose TABARES PATIENT [facility] PREFERRED PROVIDER ORGANIZAT ION (PPO) WHELA N SECUR ITY Nov 17, 2018 [id number] [phone] Jose TABARES PATIENT [facility] PREFERRED PROVIDER ORGANIZAT ION (PPO) JOSE NEGRETE ITY Nov 17, 2018 [id number] [phone] Jose TABARES PATIENT Selected Encounter This section includes the information on record at [place] for the Encounter. Date/Time Encounter Type Encounter Description Reason Provider Source Aug 05, 2024 11:55 AM Outpatient Encounter TELEPHONE KOREY CANDELARIA Encounter Template Text not used by [place] Plan of Treatment: Future Appointments (+ 6 months) and Future Tests (+/- 45 days) The Plan of Treatment section includes future care activities for the patient from all [place] [facility]. This section includes future appointments and future orders which are active, pending or scheduled. Future Appointments This section includes appointments that were scheduled to occur 6 months from the date of the Encounter, up to a maximum of 20 appointments. The data comes from all [facility] facilities. Appointment Date/Time Appointment Type Appointme nt Facility Name Aug 06, 2024 12:30 PM AMBULATORY - PSYCHIATRY [facility] Aug 18, 2024 11:00 AM AMBULATORY - MEDICINE [facility] Sep 06, 2024 02:30 PM AMBULATORY - PSYCHIATRY [facility] Sep 28, 2024 11:40 AM AMBULATORY - SURGERY [facility] Nov 18, 2024 11:30 AM AMBULATORY - MEDICINE [facility] Nov 23, 2024 02:00 PM AMBULATORY - PSYCHIATRY [facility] Nov 30, 2024 12:40 PM AMBULATORY - SURGERY [facility] Social History: Smoking Status (Most current) [...] place. Date/Time Current Smoking Status Comment Devorah itvamsi Aug 05, 2024 11:55 AM VA-TOBACCO FORMER [...] 07, 2023 06:21 AM ORYX DAILY TOBACCO FLUE GAS ANALYST RECEIVED [facility] [...] 2023 ADVANCE DIRECTIVE DARLEEN ENRIQUEZ [facility] Encounter Notes: All associated encounter notes This section contains the clinical notes associated to the Encounter. Date/Time Encounter Note(s) Provider Source Aug 05, 2024 11:55 AM NURSING OUTPATIENT TRIAGE NOTE: LOCAL TITLE: [facility] MENT[facility] HEALTH OUTPATIENT TRIAGE ST STANDARD TITLE: NURSING OUTPATIENT TRIAGE NOTE DATE OF NOTE: AUG 05, 2024@11:55 ENTRY DATE: AUG 05, 2024@11:55:17 AUTHOR: KOREY CANDELARIA COSIGNER: URGENCY: STATUS: COMPLETED Alcohol Use Screen (AUDIT-C): Alcohol Screen: The patient declined to answer questions about alcohol use. The patient states he was drinking heavily for a couple of months in the last year but he quit and is now not drinking at all. Tobacco Use Screening: The patient is a former tobacco user. The patient quit five to less than fifteen years ago. RHS Screen: RHS Screen Session Format: Telephone Modality of Care: Telephone Patient's identity verified using two identifiers. Patient Contact Details: Best contact number for backup/emergency communication with patient: Patient Location/Surroundings During Visit: Patient location during visit: Home [address] [place] [id number] Patient confirms location is safe and private for visit. Environmental Check Upon inquiry, the individual reports that the environment is safe to proceed. Informed Consent to Screen and Document The individual consents to proceed with screening. The individual consents to documentation of responses. PRIMARY SCREEN: In the past 12 months, how often did a current or former intimate partner (e.g., boyfriend, girlfriend, , , sexual partner): 1. Scream or curse at you Never 2. Insult or talk down to you Never 3. Threaten you with harm Never 4. Physically hurt you Never 5. Force or pressure you to have sexual contact against your will, or when you were unable to say no Never ?? The HITS tool (items 1-4 above) is [place] copyright protected by Robbin Allen MD, and the user has full rights to use it throughout the [place] system. PRIMARY SCREEN RESULT: The Primary Screen is NEGATIVE. The individual answered never to all forms of IPV above (i.e., answered never to all 5 items) The individual accepts education and/or resources: Other: Not needed. Patient has not has a partner in greater than 12 months. EDUCATION: The individual indicated readiness to learn. Education offered during this session as noted above. The individual indicated understanding by asking relevant questions and making appropriate comments. No barriers to learning were observed or identified. /loyda/ KOREY RECINOSN RN Registered Nurse Signed: 08/05/2024 12:02 KOREY CANDELARIA [facility]
--- OUTSIDE RECORDS SUMMARY | 2024-11-14 04:31 | XMS_ITS ---
Author Name [facility] [place] Address [address] [place] [address] Care Team Providers Care National Sales Trainer Name Role Phone JOSUE NGO Primary Care [...] PRESCRIPT ION UHEAL TH Nov 17, 2018 [facility] [id number] [phone] Jose CURRY PATIENT [employer] RX PRESCRIPT ION RX PLAN Nov 17, 2018 [facility] [id number] [phone] Jose CURRY PATIENT [facility] HEALTH WHELA N SECUR ITY Nov 17, 2018 [id number] [phone] Jose CURRY PATIENT [facility] MENTAL HEALTH WHELA N SECUR ITY Nov 17, 2018 [id number] [phone] Jose CURRY PATIENT [facility] PREFERRED PROVIDER ORGANIZAT ION (PPO) WHELA N SECUR ITY Nov 17, 2018 [id number] [phone] Jose CURRY PATIENT [facility] PREFERRED PROVIDER ORGANIZAT ION (PPO) JOSE NEGRETE ITY Nov 17, 2018 [id number] [phone] Jose CURRY PATIENT Selected Encounter This section includes the information on record at [place] for the Encounter. Date/Time Encounter Type Encounter Description Reason Pro vider Source Jul 06, 2024 03:34 PM Outpatient Encounter SUBSTANCE USE DISORDER IND SHANKAR CHAND Encounter Template Text not used by [facility] Plan of Treatment: Future Appointments (+ 6 months) and Future Tests (+/- 45 days) The Plan of Treatment section includes future care activities for the patient from all [place] [facility]. This section includes future appointments and future orders which are active, pending or scheduled. Future Appointments This section includes appointments that were scheduled to occur 6 months from the date of the Encounter, up to a maximum of 20 appointments. The data comes from all [facility] facilities. Appointment Date/Time Appointment Type Appointme nt Facility Name Aug 06, 2024 12:30 PM AMBULATORY - [facility]ATRY [facility] Aug 18, 2024 11:00 AM AMBULATORY - MEDICINE [facility] Sep 06, 2024 02:30 PM AMBULATORY - PS[facility]CHIATRY [facility] Sep 28, 2024 11:40 AM AMBULATORY - SURGERY [facility] Nov 18, 2024 11:30 AM AMBULATORY - MEDICINE [facility] Nov 23, 2024 02:00 PM AMBULATORY - PSYCHIATRY [facility] Nov 30, 2024 12:40 PM AMBULATORY - SURGERY [facility] Social History: Smoking Status (Most current) and Tobacco Use (All prior to encounter date) This section includes the most current, and the historical, smoking and tobacco- related health factors from the [place] facility where the Encounter took place. Current Smoking Status This section includes the most current smoking, or tobacco-related health factor, from the [place] facility where the Encounter took place. Date/Time Current Smoking Status Comment Facil ity May 07, 2023 06:21 AM ORYX ADMIT TOBACCO SCREEN YES [facility] Tobacco Use History This section includes a history of the smoking, or tobacco-related health factors, that were collected on or before the date of the Encounter. The data comes from the [place] facility where the Encounter took place. Date/Time Smoking Status/Tobacco Use Comment F acility May 07, 2023 06:21 AM ORYX ADMIT TOBACCO USE CIGS LS 5D [facility] May 07, 2023 06:21 AM ORYX DAILY TOBACCO FLARE MAN RECEIVED [facility] May 07, 2023 06:21 AM ORYX DAILY TOBACCO MEDS REFUSED [facility] Oct 27, 2013 02:51 PM QUIT TOBACCO >7 YEARS AGO [facility] Jan 07, 2013 10:01 AM CURRENT TOBACCO USER [facility] Jan 07, 2013 10:01 AM TOBACCO MEDS OFFER ED BUT DECLINED [facility] Sep 18, 2011 12:08 PM QUIT TOBACCO IN TH E LAST 12 MONTHS [facility] Jul 25, 2011 03:33 PM CURRENT TOBACCO USER [facility] Jul 20, 2010 10:35 AM QUIT TOBACCO IN TH E LAST [address]S [facility] Advance Directives: All historical and current Section Date Range: From patient's date of to the date document was created. This section includes ALL of a patient's completed or amended [place] Advance and Rescinded Directives. The entries below indicate that a directive exists for the patient, but an actual copy is not included with this document. The data comes from all [place] facilities. Date Advance Directives Provider Source May 07, 2023 ADVANCE DIRECTIVE DARLEEN ENRIQUEZ [facility] Encounter Notes: All associated encounter notes This section contains the clinical notes associated to the Encounter. Date/Time Encounter Note(s) Provider Source Jul 06, 2024 03:35 PM MENTAL HEALTH DIAG NOSTIC STUDY NOTE: LOCAL TITLE: MENTAL HEALTH DIAGNOSTIC STUDY STANDARD TITLE: MENTAL HEALTH DIAGNOSTIC STUDY NOTE DATE OF NOTE: JUL 06, 2024@15:35:03 ENTRY DATE: JUL 06, 2024@15:35:03 AUTHOR: SHANKAR CHAND EXP COSIGNER: URGENCY: STATUS: COMPLETED [place] Suicide Severity Rating Scale (C-SSRS) Date Given: 07/06/2024 Clinician: Shankar Chand Location: [facility] Assess [place]: Eyal Curry SSN: [id number] : [birth year] ([birth year]) Gender: Male Suicidal Ideation in Past Month: None endorsed Method/Plan/Intent in Past Month: No method, no specific plan, and no intent Suicidal Behavior: No Past Suicidal Behavior Reported PIERSON INDICATORS: Questions and Answers: 1. Over the past month, have you wished you were or wished you could go to sleep and not wake up? No 2. Over the past month, have you had any actual thoughts of killing yourself? No 3. Over the past month, have you been thinking about how you might do this? Not asked (due to responses to other questions) 4. Over the past month, have you had these thoughts and had some intention of acting on them? Not asked (due to responses to other questions) 5. Over the past month, have you started to work out or worked out the details of how to kill yourself? Not asked (due to responses to other questions) 6. If yes, at any time in the past month did you intend to carry out this plan? Not asked (due to responses to other questions) 7. In your lifetime, have you ever done anything, started to do anything, or prepared to do anything to end your life (for example, collected pills, obtained a gun, gave away valuables, went to the roof but didn't jump)? No 8. If yes, was this within the past 3 months? Not asked (due to responses to other questions) [place]-Suicide Severity Rating Scale (C-SSRS) ?? 2016 [facility]. Scale may be reproduced without permission. Information contained in this note is based on a self-report assessment and is not sufficient to use alone for diagnostic purposes. Assessment results should be verified for accuracy and used in conjunction with other diagnostic activities. /loyda/ Shankar Chand Addiction Therapist, DEISI STEVENSON [address] Signed: 07/06/2024 15:35 SHANKAR CHAND
--- OUTSIDE RECORDS SUMMARY | 2024-11-14 04:31 | XMS_ITS | Encounter Summary ---
Author Name [facility] [facility] [place] Organization [facility] [place] Address [address] [place] [address] Care Team Providers Care Fur Blender Name Role Phone JOSUE NGO Primary Care [...] RX PLAN Nov 17, 2018 [facility] [id number] [phone] Jose TABARES PATIENT [employer] RX PRESCRIPT ION EAL Nov 17, 2018 [facility] [id number] [phone] Jose TABARES PATIENT [facility] HEALTH WHELA Jose SECUR ITY Nov 17, 2018 [id number] [phone] Jose TABARES PATIENT [facility] MENTAL HEALTH WHELA N SECUR ITY Nov 17, 2018 [id number] [phone] Jose TABARES PATIENT [facility] PREFERRED PROVIDER ORGANIZAT ION (PPO) WHEJEROD N SECUR ITY Nov 17, 2018 [id number] [phone] RAYSHAWNJose KILO PATIENT [facility] PREFERRED PROVIDER ORGANIZAT ION (PPO) JOSE FRIEDMAN Nov 17, 2018 [id number] [phone] [phone] Jose TABARES PATIENT Selected Encounter This section includes the information on record at [place] for the Encounter. Date/Time Encounter Type Encounter Description Reason Provider Source Sep 28, 2024 11:40 AM OFF/OP CNSLTJ NEW/EST LOW 30 PLASTIC SURGERY ICD-10-CM G56.03 Carpal tunnel syndrome, bilateral upper limbs ALE BALTAZAR IHTatyana Encounter Template Text not used by [place] Assessments - Encounter Diagnoses This section includes the primary and secondary diagnoses documented for the Encounter. Date/Time Primary/Secondary Diagnosis Diagnosis Name Provider Source Oct 03, 2024 08:47 PM PRIMARY Carpal tunnel syndrome, bilateral upper limbs MANNY TRONCOSO [facility] Plan of Treatment: Future Appointments (+ 6 months) and Future Tests (+/- 45 days) The Plan of Treatment section includes future care activities for the patient from [facility] [place] [facility]. This section includes future appointments and [...] 18, 2024 11:30 AM AMBULATORY - MEDICINE [facility] Nov 23, 2024 02:00 PM AMBULATORY - PSYCHIATRY [facility] Nov 30, 2024 12:40 PM AMBULATORY - SURGERY [facility] Feb 17, 2025 11:30 AM AMBULATORY - MEDICINE [facility] Active, Pending, and Scheduled Orders [...] - Chemi stry Order CBC BLOOD SP [facility] Oct 03, 2024 12:00 AM Laboratory - Chemi stry Order BASIC METABOLIC PANEL GREEN LI/HEP BLD/PLAS PLASMA SP [facility] Vital Signs: All taken on the encounter date This section contains inpatient and outpatient Vital Signs collected on the date of the Encounter. Date/Time Temperature Pulse Blood Pressure Respiratory Rate SP02 Pain Height Weight Body Mass Index Source Sep 28, 2024 11:47 AM 97.9 122 125/88 16 100 6 71 163 23 [facility] Social History: Smoking Status [...] 05, 2024 11:55 AM VA-TOBACCO FORMER USER [facility] Tobacco Use History This section includes a history of the smoking, or tobacco-related health factors, that were collected on or before the date of the Encounter. The data comes from the [place] facility where the Encounter took place. Date/Time Smoking Status/Tobacco Use Comment F acility Aug 05, 2024 11:55 AM VA-TOBACCO QUIT 5 TO < 15 YRS [facility] May 07, 2023 06:21 AM ORYX ADMIT TOBACCO SCREEN YES [facility] May 07, 2023 06:21 AM ORYX ADMIT TOBACCO USE CIGS LS 5D [facility] May 07, 2023 06:21 AM ORYX DAILY TOBACCO SUSPECT ARTIST SUPERVISOR RECEIVED [facility] May 07, 2023 06:21 AM ORYX DAILY TOBACCO MEDS REFUSED [facility] Oct 27, 2013 02:51 PM QUIT TOBACCO >7 YEARS AGO [facility] Jan 07, 2013 10:01 AM CURRENT TOBACCO USER [facility] Jan 07, 2013 10:01 AM TOBACCO MEDS OFFER ED BUT DECLINED [facility] Sep 18, 2011 12:08 PM QUIT TOBACCO IN E LAST 12 MONTHS [facility] Jul 25, 2011 03:33 PM CURRENT TOBACCO USER [facility] Jul 20, 2010 10:35 AM QUIT TOBACCO IN TH E LAST 12 MONTHS [facility] Advance Directives: All historical and current [...] Provider Source May 07, 2023 ADVANCE DIRECTIVE NATASHA ENRIQUEZCe Garcia [facility] Encounter Notes: All associated encounter notes This section contains the clinical notes associated to the Encounter. Date/Time Encounter Note(s) Provider Source Oct 01, 2024 01:09 PM PLASTIC SURGERY CO NSULT: LOCAL TITLE: PLASTIC SURGERY CONSULT ST STANDARD TITLE: PLASTIC SURGERY CONSULT DATE OF NOTE: OCT 01, 2024@13:09 ENTRY DATE: OCT 01, 2024@13:10:01 AUTHOR: KATIE BLACKMON COSIGNER: ALE BALTAZAR URGENCY: STATUS: COMPLETED OCT 01, 2024 Plastic Surgery Treatment History: S: 44 year old RHD male with PMH of TBI, anxiety, depression, palpitations, tobacco dependence, presents for bilateral hand numbness/tingling. The patient states numbness/tingling has been present for years. When it first started, it only affected him while driving. Now it is constant numbness/tinglingn to all digits. Confirms dropping things frequently, waking up at night and shaking out his hand due to n/t. The patient had NCS with [facility] for bilateral carpal tunnel syndrome. He had difficulty with the EMG and ended up declining it. Denies history of any hand surgeries or injuries 1ppd No bloodthinners, no steroids. O: Temp: 97.9 F [36.6 C] (09/28/2024 11:47) Pulse Ox: Measurement DT POx (L/MIN)(%) 09/28/2024 11:47 100 05/31/2024 13:28 98 03/30/2024 11:23 99 07/13/2023 16:30 97 PULSE: 122 (09/28/2024 11:47) RESPIRATION: 16 (09/28/2024 11:47) BLOOD PRESSURE: 125/88 (09/28/2024 11:47) PHYSICAL EXAM: GENERAL: Adult male in no distress LUNGS: Nonlabored respirations on room air HEART: RR ABDOMEN: Soft, nondistended EXT: WWP distally, moves all extremities. Squeeze test right 40 lbs, left 60 lbs Pinch test right 10 lbs, left 15 lbs 2 pt discrimination: 4 mm throughout + provocative right cubital tunnel - provocative testing at right carpal tunnel, left carpal tunnel, or left cubital tunnel. LABS: CHEM 7: SODIUM 139 mEq/L 03/30/2024 12:02 POTASSIUM 3.8 mEq/L 03/30/2024 12:02 CHLORIDE 103 mEq/L 03/30/2024 12:02 UREA NITROGEN 7.5 L mg/dL 03/30/2024 12:02 CREATININE 0.78 mg/dL 03/30/2024 12:02 CALCIUM 9.5 mg/dL 03/30/2024 12:02 CARBON DIOXIDE 27 mEq/L 03/30/2024 12:02 GLUCOSE 104 H mg/dL 03/30/2024 12:02 EGFR (CKD-EPI 2020) 114.19 03/30/2024 12:02 CBC: WBC 7.1 10*3/uL 03/30/2024 12:02 RBC 4.14 [...] 05/06/2023 20:27 TARGET CELLS 2+ 05/06/2023 20:27 ACTIVE INPT MEDS: No medications found. NCS/EMG 06/11/23 - left carpal tunnel, bilateral cubital tunnel - limited study due to not tolerating EMG ASSESSMENT/PLAN: 44 year old male with clinical symptoms of bilateral carpal and cubital tunnel syndromes. Discussed treatment options, benefits and potential risks. The patient expressed understanding and wishes to be scheduled. - Surgery scheduling order for right carpal cubital release submitted - EKG ordered due to history of palpitations - Anesthesia clearance, cardiology clearance - CBC, BMP - Follow up 1-2 weeks before scheduled surgery date /loyda/ Katie Blackmon MD Plastic & Reconstructive Surgery PGY1 Signed: 10/01/2024 18:20 /loyda/ ALE BALTAZAR MD Staff Physician, Plastic Surgery Cosigned: 10/05/2024 12:58 KATIE BLACKMON [facility]
--- OUTSIDE RECORDS SUMMARY | 2024-11-14 04:31 | XMS_ITS | Encounter Summary ---
Author Name [facility] [place] Address [address] [place] [address] Care Team Providers Care Lighting Technician Name Role Phone JOSUE NGO Primary Care [...] RX PRESCRIPT ION EAL Nov 17, 2018 [facility] [id number] [phone] Jose TABARES PATIENT [employer] RX PRESCRIPT ION RX PLAN Nov 17, 2018 [facility] [id number] [phone] Jose TABARES PATIENT [facility] HEALTH JOSE NEGRETE ITY Nov 17, 2018 [id number] [phone] Jose TABARES PATIENT [facility] MENTAL HEALTH WHELA Jose SECUR ITY Nov 17, 2018 [id number] [phone] Jose TABARES PATIENT [facility] PREFERRED PROVIDER ORGANIZAT ION (PPO) JOSE NEGRETE ITY Nov 17, 2018 [id number] [phone] Jose TABARES PATIENT [facility] PREFERRED PROVIDER ORGANIZAT PARESH (PPO) JOSE FRIEDMAN Nov 17, 2018 [id number] [phone] Jose TABARES PATIENT Selected Encounter This section includes the [place] for the Encounter. Date/Time Encounter Type Encounter Description Reason Pro vider Source Aug 18, 2024 12:17 PM Outpatient Encounter ADMIN PAT ACTIVTIES (MASNONCT) IHE Encounter Template Text not used by VA Plan of Treatment: Future Appointments (+ 6 months) and Future Tests (+/- 45 days) The Plan of Treatment section includes future care activities for the [place] from all [place] treatmentfacilities. This section includes future appointments and future orders which are active, pending or scheduled. Future Appointments This section includes appointments that were scheduled to occur 6 months from the date of the Encounter, up to a maximum of 20 appointments. The data comes from all [place] treatment facilities. Appointment Date/Time Appointment Type Appointme nt Facility Name Sep 06, 2024 02:30 PM AMBULATORY - PSYCHIATRY [facility] Sep 28, 2024 11:40 AM AMBULATORY - SURGERY [facility] Nov 18, 2024 11:30 AM AMBULATORY - MEDICINE [facility] Nov 23, 2024 02:00 PM AMBULATORY - PSYCHIATRY [facility] Nov 30, 2024 12:40 PM AMBULATORY - SURGERY [facility] Social History: Smoking Status (Most current) and Tobacco Use (All prior to encounter date) This section includes the most current, and the historical, smoking and tobacco- related health factors from the [place] facility where the Encounter took place. Current Smoking Status This section includes the most current smoking, or tobacco-related health factor, from the [place] facility where the Encounter took place. Date/Time Current Smoking Status Comment Facil ity Aug 05, 2024 11:55 AM [place]-TOBAC[place] FORMER USER [facility] Tobacco Use History This section includes a history of the smoking, or tobacco-related health factors, that were collected on or before the date of the Encounter. The data comes from the [place] facility where the Encounter took place. Date/Time Smoking Status/Tobacco Use Comment F acility Aug 05, 2024 11:55 AM VA-TOBACCO QUIT 5 TO < 15 YRS [facility] May 07, 2023 06:21 AM ORYX ADMIT TOBACCO SCREEN YES [facility] May 07, 2023 06:21 AM ORYX ADMIT TOBACCO USE CIGS LS 5D [facility] May 07, 2023 06:21 AM ORYX DAILY TOBACCO FOOD TRAY ASSEMBLER RECEIVED [facility] May 07, 2023 06:21 AM ORYX DAILY TOBACCO MEDS REFUSED [facility] Oct 27, 2013 02:51 PM QUIT TOBACCO >7 YEARS AGO [facility] Jan 07, 2013 10:01 AM CURRENT TOBACCO USER [facility] Jan 07, 2013 10:01 AM TOBACCO MEDS OFFER ED BUT DECLINED [facility] Sep 18, 2011 12:08 PM QUIT TOBACCO IN TH E LAST 12 MONTHS [facility] Jul 25, 2011 03:33 PM CURRENT TOBACCO USER [facility] Jul 20, 2010 10:35 AM QUIT TOBACCO IN TH E LAST 12 MONTHS [facility] Advance Directives: All historical and current Section Date Range: From patient's date of to the date document was created. This section includes ALL of a patient's completed or amended [place] Advance and Rescinded Directives. The entries below indicate that a directive exists for the patient, but an actual copy is not included with this document. The data comes from all [place] facilities. Date Advance Directives Provider Source May 07, 2023 ADVANCE DIRECTIVE DARLEEN ENRIQUEZ [facility] Encounter Notes: All associated encounter notes This section contains the clinical notes associated to the Encounter. Date/Time Encounter Note(s) Provider Source Aug 18, 2024 11:17 AM ADMINISTRATIVE NOT E: LOCAL TITLE: CCC: SCHEDULING ADMINISTRATION STANDARD TITLE: ADMINISTRATIVE NOTE DATE OF NOTE: AUG 18, 2024@11:17:19 ENTRY DATE: AUG 18, 2024@11:17:19 AUTHOR: KATIE SANCHEZ EXP COSIGNER: URGENCY: STATUS: COMPLETED Patient Demographics Patient Name: ELEONORA TABARES Patient Primary Phone: [phone] Patient Primary Address: [address] [place] [address] Patient : 1980 Patient Age: 44 Caller/Recipient Relation to Patient: Self Administrative Administrative Note Reason: Other Administrative Note Comments: called and stated that he had been waiting for over 15 minutes on the [facility] appointment that he had for today at 11 and no one has gotten on there. He stated that the doctor called him at 9:45 a.m. this morning so he is wondering if that was in place of his [facility] appt. Please call to discuss. Thank you. IMPORTANT: This note was created by [facility] Clinical Contact Center staff. Please do not alert the staff member by adding them as a signer for future communications. Alerts are not monitored by this user. /loyda/ KATIE SANCHEZ Signed: 08/18/2024 11:17 Receipt Acknowledged By: 08/20/2024 13:42 /loyda/ HERIBERTO RECINOSN RN CCRN REGISTERED NURSE KATIE SANCHEZ [facility]
--- OUTSIDE RECORDS SUMMARY | 2024-11-14 04:31 | XMS_ITS | Encounter Summary ---
Author Name [facility] [place] [facility] [place] Address [address] [place] [address] Care Team Providers Care Temper Mill Roller Name Role Phone JOSUE SCHILLING Primary Care [...] to Policy Cano OPTUM RX PRESCRIPT ION [facility] Nov 17, 2018 [facility] [id number] [phone] Jose TABARES PATIENT OPTUM RX PRESCRIPT ION RX PLAN Nov 17, 2018 [facility] [id number] [phone] Jose TABARES PATIENT [facility] Jose SECUR ITY Nov 17, 2018 [id number] [phone] Jose TABARES PATIENT [facility] Jose SECUR ITY Nov 17, 2018 [id number] [phone] Jose TABARES PATIENT [facility] PREFERRED PROVIDER ORGANIZAT ION (PPO) JOSE Garcia SECUR ITY Nov 17, 2018 [id number] [phone] Jose TABARESOLAS PATIENT [facility] PREFERRED PROVIDER ORGANIZAT ION (PPO) JOSE FRIEDMAN Nov 17, 2018 [id number] [phone] RAYSHAWNJose KILO PATIENT Selected Encounter This section includes the information on record at [place] for the Encounter. Date/Time Encounter Type Encounter Description Reason Provider Source Aug 18, 2024 11:00 AM OFFICE O/P EST MOD 30 MIN PRIMARY CARE/MEDICINE ICD-10-CM R03.0 Elevated blood-pressure reading, w/o diagnosis of htn JOSUE SCHILLING Tatyana Encounter Template Text not used by [place] Assessments - Encounter Diagnoses This section includes the primary and secondary diagnoses documented for the Encounter. Date/Time Primary/Secondary Diagnosis Diagnosis Name Provider Source Aug 18, 2024 11:22 AM PRIMARY Elevated blood-pressure reading, w/o diagnosis of htn [facility] Aug 18, 2024 11:22 AM SECONDARY Carpal tunnel syndrome, bilateral upper limbs [facility] Aug 18, 2024 11:22 AM SECONDARY Other specified depressive episodes [facility] Aug 18, 2024 11:22 AM SECONDARY Post-traumatic stress disorder, unspecified [facility] Aug 18, 2024 11:22 AM SECONDARY Tobacco use [facility] Plan of Treatment: Future Appointments (+ 6 months) and Future Tests (+/- 45 days) The Plan of Treatment section includes future care activities for the patient from all [place] treatmentfacilities. This section includes future appointments and future orders which are active, pending or scheduled. Future Appointments This section includes appointments that were scheduled to occur 6 months from the date of the Encounter, up to a maximum of 20 appointments. The data comes from all [place] treatment facilities. Appointment Date/Time Appointment Type Appointme nt Facility Name Sep 06, 2024 02:30 PM AMBULATORY - PSYCHIATRY [facility] Sep 28, 2024 11:40 AM AMBULATORY - SURGERY [facility] Nov 18, 2024 11:30 AM AMBULATORY - MEDICINE [facility] Nov 23, 2024 02:00 PM AMBULATORY - PSYCHIATRY [facility] Nov 30, 2024 12:40 PM AMBULATORY - SURGERY [facility] Social History: Smoking Status [...] 2023 11:00 AM VA-TOBACCO USER SOME DAYS [facility] Tobacco Use History This section includes a history of the smoking, or tobacco-related health factors, that were collected on or before the date of the Encounter. The data comes from the [place] facility where the Encounter took place. 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 [facility] Jun 05, 2023 11:00 AM VA-TOBACCO USE MED NO [facility] Jun 05, 2023 11:00 AM VA-TOBACCO USER SOME DAYS [facility] April 16, 2022 03:00 PM VA-TOBACCO FORMER USER [facility] April 16, 2022 03:00 PM VA-TOBACCO QUIT < 1 YEAR [facility] Nov 14, 2020 09:38 AM VA-TOBACCO USE 1 TO < 5 YEARS [facility] Nov 14, 2020 09:38 AM VA-TOBACCO USE ADVICE [facility] Nov 14, 2020 09:38 AM 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 [facility] Nov 14, 2020 09:38 AM VA-TOBACCO USE MED NO [facility] Nov 14, 2020 09:38 AM VA-TOBACCO USE WI 30 MIN OF WAKEUP [facility] Nov 14, 2020 09:38 AM VA-TOBACCO USER EVERY DAY [facility] Feb 08, 2019 10:08 AM VA-TOBACCO FORMER USER [facility] Feb 08, 2019 10:08 AM VA-TOBACCO QUIT 1 TO < 5 YRS [facility] Oct 17, 2017 03:25 PM CURRENT TOBACCO USER [facility] Oct 17, 2017 03:25 PM CURRENT TOBACCO US ER (NOT READY TO QUIT) [facility] Oct 17, 2017 03:25 PM TOBACCO CESSATION REFERRAL DECLINED [facility] Oct 17, 2017 03:25 PM TOBACCO MEDS OFFER ED BUT DECLINED [facility] Oct 17, 2017 03:25 PM TOBACCO USER OFFERED MEDS [facility] Jul 02, 2017 03:19 PM CURRENT TOBACCO USER [facility] Advance Directives: All historical and [...] May 07, 2023 ADVANCE DIRECTIVE DARLEEN ENRIQUEZ [facility] Encounter Notes: All associated encounter notes This section contains the clinical notes associated to the Encounter. Date/Time Encounter Note(s) Provider Source Aug 18, 2024 11:23 AM ADDENDUM: LOCAL TITLE: Addendum STANDARD TITLE: ADDENDUM DATE OF NOTE: AUG 18, 2024@11:23:29 ENTRY DATE: AUG 18, 2024@11:23:30 AUTHOR: JOSUE SCHILLING EXP COSIGNER: URGENCY: STATUS: COMPLETED RTC 6 month visit /loyda/ Josue Schilling MD Staff Physician Signed: 08/18/2024 11:24 Receipt Acknowledged By: 08/24/2024 11:48 /loyda/ DALLAS YOUNG MSA --- Original Document --- 08/18/24 PRIMARY CARE VIDEO CONNECT STL: Medicine Provider Note Modality of Care: Clinical Video Telehealth Visit conducted by Clinical Video Telehealth. Patient/surrogate provided verbal consent for video telehealth. Patient location confirmed. Emergency number confirmed. Patient Contact Details: Best contact number for backup communication with patient: Patient ESTABLISHED PATIENT : 44 yoM h/o HTN, PTSD, MDD, SHIRA, h/o chronic EtOH abuse/dependence, h/o multiple TBIs ([facility]21 and [facility] evaluation 2009), CLBP, insomnia, ADHD. CC / HPI : routine f/u video visit. Denies any other complaint today Allergies: NKDA Social History : Tobacco : Using pouch ETHO : Quit few months drugs : marijuina daily Blood Transfusion : [...] bilateral carpal tunnel syndrome. Plan to see plastic surgery next month - Elevated BP : plan for low salt diet. will call us back in few weeks for blood pressure log book - PTSD / Depression / anxiety / ADHD /insomnia: No SI, no HI. sees mental health - ETHO Use : counselling was done again - Tobacco use: counseling was done. Plan: cont's meds. need to bring all medication bottles at next visit. Medications list updated with patient today. RTC 6 month visit pt is asymtomatic now If any [...] this VA (local) and dispensed from another [place] or [place] facility (remote) as well as inpatient orders (local pending and active), local clinic medications, locally documented non-VA medications, and local prescriptions that have or been discontinued in the past 90 days.) with the patient and/or his/her care-chiller tender. Handwritten corrections, additions and/or deletions were made to the list, as appropriate. Corrected Outpatient Medication List was provided to the patient/caregiver. /loyda/ Josue Schilling MD Staff Physician Signed: 08/18/2024 11:23 JOSUE SCHILLING [facility] Aug 18, 2024 09:46 AM TELEHEALTH NOTE: LOCAL TITLE: PRIMARY CARE VIDEO CONNECT [facility] STANDARD TITLE: TELEHEALTH NOTE DATE OF NOTE: AUG 18, 2024@09:46 ENTRY DATE: AUG 18, 2024@09:47:02 AUTHOR: JOSUE SCHILLING EXP COSIGNER: URGENCY: STATUS: COMPLETED PRIMARY CARE VIDEO CONNECT STL Has ADDENDA Medicine Provider Note Modality of Care: Clinical Video Telehealth Visit conducted by Clinical Video Telehealth. Patient/surrogate provided verbal consent for video telehealth. Patient location confirmed. Emergency number confirmed. Patient Contact Details: Best contact number for backup communication with patient: Patient ESTABLISHED PATIENT : 44 yoM h/o HTN, PTSD, MDD, SHIRA, h/o chronic EtOH abuse/dependence, h/o multiple TBIs ([facility] and [facility] evaluation 2009), CLBP, insomnia, ADHD. CC / HPI : routine f/u video visit. Denies any other complaint today Allergies: NKDA Social History : Tobacco : Using pouch ETHO : Quit few months drugs : marijuina daily Blood Transfusion : [...] bilateral carpal tunnel syndrome. Plan to see plastic surgery next month - Elevated BP : plan for low salt diet. [place] will call us back in few weeks for blood pressure log book - PTSD / Depression / anxiety / ADHD /insomnia: No SI, no HI. sees mental health - ETHO Use : counselling was done again - Tobacco use: counseling was done. Plan: cont's meds. need to bring all medication bottles at next visit. Medications list updated with patient today. RTC 6 month visit pt is asymtomatic now If any [...] this VA (local) and dispensed from another [place] or [place] facility (remote) as well as inpatient orders (local pending and active), local clinic medications, locally documented non-VA medications, and local prescriptions that have or been discontinued in the past 90 days.) with the patient and/or his/her care-chiller tender. Handwritten corrections, additions and/or deletions were made to the list, as appropriate. Corrected Outpatient Medication List was provided to the patient/caregiver. /loyda/ Josue Schilling MD Staff Physician Signed: 08/18/2024 11:23 08/18/2024 ADDENDUM STATUS: COMPLETED RTC 6 month visit /saranya Schilling MD Staff Physician Signed: 08/18/2024 11:24 Receipt Acknowledged By: * AWAITING SIGNATURE * DALLAS YOUNG ASHA [facility]
--- OUTSIDE RECORDS SUMMARY | 2024-11-14 04:32 | XMS_ITS | Clinical Summary ---
Author Organization [facility] Address [address] [place] [address] Care Team Providers Care Sheet Rock Sander Name Role Phone Unavailable Primary Care Provider Unavailabl e Source Comments [facility],non-owned Affiliates and Associated Physician Practices is amultiple site organization consisting of ambulatory clinics and hospital sitesin [place], [place], [place] and [place]. This disclosure is being madepursuant to the Care Everywhere program and may not contain all information available regarding this patient. Last updated [email or web address] [facility] Allergies No known active allergies Medications * Be aware that medications may not be up to date on this document. Alwaysverify current medications with the patient. Medication Sig Dispensed Refills Start Date End Date Status HYDROCODONE-ACETAMIN OPHEN PO Active traMADol (ULTRAM) 50 MG tablet Take 50 mg by mouth every 6 hours as needed for Pain Active benzonatate (TESSALON) 200 MG capsuleIndications:A cute maxillary sinusitis, recurrence not specified Take 1 capsule by mouth 3 times daily as needed for Cough 30 capsule 12/04/2018 Active Family History Medical History Relation Name Comments Cancer - Thyroid Father Cancer - Pancreatic Mother Relation Name Status Comments Brother Alive Father Alive Mother Social History Tobacco Use Types Packs/Day Years Used Date Smoking Tobacco: Never Smokeless Tobacco: Never Comments:e cig Sex and Gender Information Value Date Recorded Sex Assigned at Not on file Gender Identity Not on file Sexual Orientation Not on file Last Filed Vital Signs Vital Sign Reading Time Taken Comments Blood Pressure 118/78 12/04/2018 12:30 PM TAP DANCER Pulse 88 12/04/2018 12:30 PM TAP DANCER Temperature 37.1 ??C (98.8 ??F) 12/04/2018 12:[address] Respiratory Rate 16 12/04/2018 12:30 PM TAP DANCER Oxygen Saturation 99% 12/04/2018 12:30 PM TAP DANCER Inhaled Oxygen Concentration - - Weight 86.2 kg (190 lb) 12/04/2018 12:30 PM TAP DANCER Height 180.3 cm (5' 11 ) 12/04/2018 12:30 PM TAP DANCER Body Mass Index 26.5 12/04/2018 12:30 PM TAP DANCER Plan of Treatment Health Maintenance Due Date Last Done Comments LIPID TESTING 1981 HIV SCREENING 1996 HEPATITIS C SCREENING 05/22/1999 DTAP/TDAP/TD VACCINES (1 - Tdap) 2000 HEPATITIS B VACCINE (1 of 3 - 19+ 3-dose series) 2000 DEPRESSION SCREENING 11/17/2023 COVID-19 VACCINE ( - 2023-2 5 season) 2024 INFLUENZA VACCINE (#1) 2024 ZOSTER VACCINE (1 of 2) 2031 HIB VACCINE Aged Out No longer eligi ble based on patient's age to complete this topic HPV VACCINE Aged Out No longer eligi ble based on patient's age to complete this topic MENINGOCOCCAL VACCINE Aged Out No maldonado tommy eligible based on patient's age to complete this topic PNEUMOCOCCAL VACCINE Aged Out No long er eligible based on patient's age to complete this topic
--- OUTSIDE RECORDS SUMMARY | 2024-11-14 04:32 | XMS_ITS | Encounter Summary ---
Author Name [facility] [place] [facility] [place] [facility] [place] Address [address] [place] [address] Care Team Providers Care Ict Programmer Name Role Phone JOSUE NGO Primary Care [...] RX PLAN Nov 17, 2018 [facility] [id number] [phone] Jose TABARES PATIENT OPTUM RX PRESCRIPT ION [facility] Nov 17, 2018 [facility] [id number] [phone] Jose TABARES PATIENT [facility] Jose SECUR ITY Nov 17, 2018 [id number] [phone] Jose TABARES PATIENT [facility] Jose SECUR ITY Nov 17, 2018 [id number] [phone] Jose TABARES PATIENT [facility] PREFERRED PROVIDER ORGANIZAT ION (PPO) JOSE Garcia SECUR ITY Nov 17, 2018 [id number] [phone] Jose TABARES PATIENT [facility] PREFERRED PROVIDER ORGANIZAT ION (PPO) JOSE FRIEDMAN Nov 17, 2018 [id number] [phone] RAYSHAWNJose KILO PATIENT Selected Encounter This section includes the information on record at [place] for the Encounter. Date/Time Encounter Type Encounter Description Reason Pro vider Source Oct 29, 2024 11:44 AM Outpatient Encounter ADMIN PAT ACTIVTIES (MASNONCT) IHE Encounter Template Text not used by [place] Plan of Treatment: Future Appointments (+ 6 months) and Future Tests (+/- 45 days) The Plan of Treatment section includes [facility] care activities for the [facility] [place] [facility] This section includes future appointments and future orders which are active, pending or scheduled. Future Appointments This section includes appointments that were scheduled to occur 6 months from the date of the Encounter, up to a maximum of 20 appointments. The data comes from all [facility]. Appointment Date/Time Appointment Type Appointme nt Facility Name Nov 18, 2024 11:30 AM AMBULATORY - MEDICINE [facility] Nov 23, 2024 02:00 PM AMBULATORY - PSYCHIATRY [facility] Nov 30, 2024 12:40 PM AMBULATORY - SURGERY [facility] Feb 17, 2025 11:30 AM AMBULATORY - MEDICINE [facility] Active, Pending, and Scheduled Orders This section includes a listing of several types of active, pending, and scheduled orders, including clinic medications orders, diagnostic test orders, procedure orders and consult orders; where the start date of the order is 45 days before the date of the Encounter or 45 days after the date of theEncounter. The data comes from all [facility]. Test Date/Time Test Type Test Details Facility Name Oct 03, 2024 12:00 AM Laboratory - Chemi stry Order CBC BLOOD SP [facility] Oct 03, 2024 12:00 AM Laboratory - Chemi stry Order BASIC METABOLIC PANEL GREEN LI/HEP BLD/PLAS PLASMA SP [facility] Social History: Smoking Status (Most current) and Tobacco Use (All prior to encounter date) This section includes the most current, and the historical, smoking and tobacco- related health factors from the [place] facility where the Encounter took place. Current Smoking Status This section includes the most current smoking, or tobacco-related health factor, from the [place] facility where the Encounter took place. Date/Time Current Smoking Status Comment Devorah friedman Aug 05, 2024 11:55 AM VA-TOBACCO FORMER USER [facility] Tobacco Use History This section includes a history of the smoking, or tobacco-related health factors, that were collected on or before the date of the Encounter. The data comes from the [place] facility where the Encounter took place. Date/Time Smoking Status/Tobacco Use Comment F acility Aug 05, 2024 11:55 AM VA-TOBACCO QUIT 5 TO < 15 YRS [facility] May 07, 2023 06:21 AM [facility] ADMIT TOBACCO SCREEN YES [facility] May 07, 2023 06:21 AM [facility] ADMIT TOBACCO USE CIGS LS 5D [facility] May 07, 2023 06:21 AM [facility] DAILY TOBACCO RAILROAD REPAIRER RECEIVED [facility] May 07, 2023 06:21 AM [facility] DAILY TOBACCO MEDS REFUSED [facility] Oct 27, 2013 02:51 PM QUIT TOBACCO >7 YEARS AGO [facility] Jan 07, 2013 10:01 AM CURRENT TOBACCO USER [facility] Jan 07, 2013 10:01 AM TOBACCO MEDS OFFER ED BUT DECLINED [facility] Sep 18, 2011 12:08 PM QUIT TOBACCO IN TH E LAST 12 MONTHS [facility] Jul 25, 2011 03:33 PM CURRENT TOBACCO USER [facility] Jul 20, 2010 10:35 AM QUIT TOBACCO IN TH E LAST 12 MONTHS [facility] Advance Directives: All historical and current Section Date Range: From patient's date of to the date document was created. This section includes ALL of a patient's completed or amended [place] Advance and Rescinded Directives. The entries below [...] Encounter Note(s) Provider Source Oct 29, 2024 11:44 AM ADMINISTRATIVE NOT E: LOCAL TITLE: CONTACT NOTE STL STANDARD TITLE: ADMINISTRATIVE NOTE DATE OF NOTE: OCT 29, 2024@11:44 ENTRY DATE: OCT 29, 2024@11:44:43 AUTHOR: ALBINO MERCHANT EXP COSIGNER: URGENCY: STATUS: COMPLETED CONTACT NOTE STL Has ADDENDA Veterans name and last 4 were used to verify identity Verified Veterans telephone #/Updated telephone number in the system REASON FOR CALL: Other: Reason for call: vet needs refill on nerve medication /loyda/ ALBINO MERCHANT ADVANCED MEDICAL SUPPORT ASSITANT Signed: 10/29/2024 12:12 Receipt Acknowledged By: 10/29/2024 15:18 /loyda/ Gloria Barbour MD STAFF PHYSICIAN for JOSUECe STEINBERGTANESHA 10/29/2024 14:27 /loyda/ LEONEL RECINOSN,RN REGISTERED NURSE for HERIBERTO CONRAD * AWAITING SIGNATURE * [facility] 10/29/2024 ADDENDUM STATUS: COMPLETED noted pregabalin was held by [facility] so will forward to them to release the hold and mail it to the pt,thanks /loyda/ Gloria Barbour MD STAFF PHYSICIAN Signed: 10/29/2024 15:20 Receipt Acknowledged By: * AWAITING SIGNATURE * [facility] BRIANA J [facility]
--- OUTSIDE RECORDS SUMMARY | 2024-11-14 04:33 | XMS_ITS | Encounter Summary ---
Author Organization [facility] Address [address] [place] [address] Care Team Providers Care Senior Painter Name Role Phone Unavailable Primary Care Provider Unavailabl e Reason for Visit * Reason Comments Sinusitis COUGH Encounter Details Date Type Department Care Team (Late st Contact Info) Description 12/04/2018 12:20 PM COMPUTER EQUIPMENT INSTALLER Office Visit [facility] AT [address] [phone] Provider, [facility] Acute maxillary sinusitis, recurrence not specified (Primary Dx) Social History Tobacco Use Types Packs/Day Years Used Date Smoking Tobacco: Never Smokeless Tobacco: Never Comments:e cig Sex and Gender Information Value Date Recorded Sex Assigned at Not on file Gender Identity Not on file Sexual Orientation Not on file documented as of this encounter Last Filed Vital Signs Vital Sign Reading Time Taken Comments Blood Pressure 118/78 12/04/2018 12:30 PM COMPUTER EQUIPMENT INSTALLER Pulse 88 12/04/2018 12:30 PM COMPUTER EQUIPMENT INSTALLER Temperature 37.1 ??C (98.8 ??F) 12/04/2018 12:[address] Respiratory Rate 16 12/04/2018 12:30 PM COMPUTER EQUIPMENT INSTALLER Oxygen Saturation 99% 12/04/2018 12:30 PM COMPUTER EQUIPMENT INSTALLER Inhaled Oxygen Concentration - - Weight 86.2 kg (190 lb) 12/04/2018 12:30 PM COMPUTER EQUIPMENT INSTALLER Height 180.3 cm (5' 11 ) 12/04/2018 12:30 PM COMPUTER EQUIPMENT INSTALLER Body Mass Index 26.5 12/04/2018 12:30 PM COMPUTER EQUIPMENT INSTALLER documented in this encounter Patient Instructions * Patient Instructions* Lizette Logan APRN-CNP - 12/04/2018 12:46 PM COMPUTER EQUIPMENT INSTALLER Images from the original note were not included. Sinusitis CAREER AGENT: Sinusitis is inflammation or infection of your sinuses. It is most often caused by a virus. Acute sinusitis may last up to 12 weeks. Chronic sinusitis lasts longer than 12 weeks. Recurrent sinusitis means you have 4 or more times in 1 year. Common symptoms include the following: ?? Fever ?? Pain, pressure, redness, or swelling around the forehead, cheeks, or eyes ?? Thick yellow or green discharge from your nose ?? Tenderness when you touch your face over your sinuses ?? Dry cough that happens mostly at night or when you lie down ?? Headache and face pain that is worse when you lean forward ?? Tooth pain, or pain when you chew Seek care immediately if: ?? Your eye and eyelid are red, swollen, and painful. ?? You cannot open your eye. ?? You have vision changes, such as double vision. ?? Your eyeball bulges out or you cannot move your eye. ?? You are more sleepy than normal, or you notice changes in your ability to think, move, or talk. ?? You have a stiff neck, a fever, or a bad headache. ?? You have swelling of your forehead or scalp. Contact your healthcare provider if: ?? Your symptoms do not improve after 3 days. ?? Your symptoms do not go away after 10 days. ?? You have nausea and are vomiting. ?? Your nose is bleeding. ?? You have questions or concerns about your condition or care. Treatment for sinusitis: Your symptoms may go away on their own. Your healthcare provider may recommend watchful waiting for up to 10 days before starting antibiotics. You may need any of the following: ?? Acetaminophen decreases pain and fever. It is available without a doctor's order. Ask how much to take and how often to take it. Follow directions. Read the labels of all other medicines you are using to see if they also contain acetaminophen, or ask your doctor or pharmacist. Acetaminophen can cause liver damage if not taken correctly. Do not use more than 4 grams (4,000 milligrams) total of acetaminophen in one day. ?? NSAIDs , such as ibuprofen, help decrease swelling, pain, and fever. This medicine is available with or without a doctor's order. NSAIDs can cause stomach bleeding or kidney problems in certain people. If you take blood thinner medicine, always ask your healthcare provider if NSAIDs are safe foryou. Always read the medicine label and follow directions. ?? Nasal steroid sprays may help decrease inflammation in your nose and sinuses. ?? Decongestants help reduce swelling and drain mucus in the nose and sinuses. They may help you breathe easier. ?? Antihistamines help dry mucus in the nose and relieve sneezing. ?? Antibiotics help treat or prevent a bacterial infection. ?? Take your medicine as directed. Contact your healthcare provider if you think your medicine is not helping or if you have side effects. Tell him or her if you are allergic to any medicine. Keep a list of the medicines, vitamins, and herbs you take. Include the amounts, and when and why you take them. Bring the list or the pill bottles to follow-up visits. Carry your medicine list with you in case of an emergency. Self-care: ?? Rinse your sinuses. Use a sinus rinse device to rinse your nasal passages with a saline (salt water) solution or distilled water. Do not use tap water. This will help thin the mucus in your nose and rinse away pollen and dirt. It will also help reduce swelling so you can breathe normally. Ask your healthcare provider how often to do this. ?? Breathe in steam. Heat a bowl of water until you see steam. Lean over the bowl and make a tent over your head with a large towel. Breathe deeply for about 20 minutes. Be careful not to get too close to the steam or burn yourself. Do this 3 times a day. You can also breathe deeply when you take ahot shower. ?? Sleep with your head elevated. Place an extra pillow under your head before you go to sleep to help your sinuses drain. ?? Drink liquids as directed. Ask your healthcare provider how much liquid to drink each day and which liquids are best for you. Liquids will thin the mucus in your nose and help it drain. Avoid drinks that contain alcohol or caffeine. ?? Do not smoke, and avoid secondhand smoke. Nicotine and other chemicals in cigarettes and cigars can make your symptoms worse. Ask your healthcare provider for information if you currently smoke and need help to quit. E-cigarettes or smokeless tobacco still contain nicotine. Talk to your healthcare provider before you use these products. Prevent the spread of germs that cause sinusitis: Wash your hands often with soap and water. Wash your hands after you use the bathroom, change a child's diaper, or sneeze. Wash your hands before youprepare or eat food. Follow up with your healthcare provider as directed: You may be referred to an ear, nose, and throat specialist. Write down your questions so you remember to ask them during your visits. ?? Copyright [employer] 2017 Information is for End User's use only and may not be sold, redistributed or otherwise used for commercial purposes. All illustrations and images included in CareNotes?? are the copyrighted property of [employer] or [employer] The above information is an telegraph office route aide only. It is not intended as medical advice for individual conditions or treatments. Talk to your doctor, nurse or pharmacist before following any medical regimen to see if it is safe and effective for you. UTER EQUIPMENT INSTALLER documented in this encounter Progress Notes * Lizette Logan APRN-CNP - 12/04/2018 12:30 PM CST Subjective: Eyal Curry is a 38 y.o. male who presents to the clinic for Chief Complaint Patient presents with ??? Sinusitis COUGH . His Primary Care Physician is No primary care provider on file.. He reports cough with occasionalphlegm production, nasal congestion, nasal drainage, sinus pressure, post nasal drainage, and intermittent chills. Denies fever, body aches, sore throat, headache or ear pain. Pt denies SOB or wheezing but notes chest congestion and sensation that lungs/chest are sore from coughing. Onset of symptoms was 1 week ago and is stable, unchanged since that time. He is drinking plenty of fluids.. He has been taking Ibuprofen, Sudafed and otc chest congestion medication with minimal relief. Past Medical History: Diagnosis Date ??? Back pain Family History Problem Relation Age of Onset ??? Cancer - Pancreatic Mother ??? Cancer - Thyroid Father Current Outpatient Prescriptions Medication Sig Dispense Refill ??? benzonatate (TESSALON) 200 MG capsule Take 1 capsule by mouth 3 times daily as needed for Cough30 capsule 0 ??? doxycycline hyclate (VIBRAMYCIN) 100 MG tablet Take 1 tablet by mouth 2 times daily for 5 days 10 tablet 0 ??? HYDROCODONE-ACETAMINOPHEN PO ??? traMADol (ULTRAM) 50 MG tablet Take 50 mg by mouth every 6 hours as needed for Pain No current facility-administered medications for this visit. No Known Allergies Social History Social History ??? Marital status: Spouse name: N/A ??? Number of children: N/A ??? Years of education: N/A Occupational History ??? Not on file. Social History Main Topics ??? Smoking status: Never Smoker ??? Smokeless tobacco: Never Used Comment: e cig ??? Alcohol use Not on file ??? Drug use: Not on file ??? Sexual activity: Not on file Other Topics Concern ??? Not on file Social History Narrative ??? No narrative on file Review of Systems Pertinent items are noted in HPI Constitutional: Positive for chills Eyes: Negative Ears, nose, mouth, and throat: Positive for nasal congestion, nasal drainage, post nasal drainage, sinus pressure Respiratory: Positive for acute cough, chest congestion, lungs/chest aching Cardiovascular: Negative Gastrointestinal: Negative Skin: Negative Neurological: Negative Objective: BP 118/78 (BP SITE: LEFT ARM, BP POSITION: SITTING, BP CUFF SIZE: 12) Pulse 88 Temp 98.8 ??F (37.1 ??C) (Oral) Resp 16 Ht 1.803 m (5' 11 ) Wt 86.2 kg (190 lb) SpO2 99% BMI 26.5 kg/m2 Exam General appearance: alert, cooperative, no distress, oriented to person, place, and time, wellappearing Head: normocephalic, without trauma Eyes: sclera and conjunctiva clear, EOMI and PERRLA, lids normal Ears: canals clear, tympanic membranes normal, hearing intact to voice Nose: nares open; no septal deviation is noted, mucosa erythematous and swollen, no frontal or maxillary tenderness Throat: no mucous membrane abnormalities, mild oropharyngeal erythema, post nasal drainage present,no tonsillar hypertrophy or exudates, uvula midline Neck: range of motion is intact, no masses, no cervical adenopathy Lungs: breath sounds normal and symmetric; no rales or wheezes; frequent nonproductive cough noted Heart: regular rhythm, normal S1 and S2, without murmurs, gallops or rubs Neurologic: mental status normal; alert and oriented X 3 Assessment: Encounter Diagnosis Name Primary? Acute maxillary sinusitis, recurrence not specified Yes Plan: Discussed the dx and tx of sinusitis. Suggested symptomatic OTC remedies. Antibiotics per orders. Nasal steroids per orders. Recommend Flonase OTC per package instructions. RTC prn. -Take and finish your prescriptions as directed. -If not already using, please start nasal saline wash, either Neti Pot or Sinus Rinse DAILY or a saline nasal spray 3-4 times a day. -Use guaifenesin expectorants (Maximum Strength Mucinex, Robitussin, store brand) to loosen secretions. -For cough you can use dextromethorphan (Delsym syrup, Robitussin cough capsules or store brand). Dextromethorphan is considered safe for and breast feeding women. -Increase fluid intake: drink 2 liters (2 quarts) of non-caffeinated, non- alcoholic beverages daily, drinking alcohol causes nasal and sinus membranes to swell -Steam inhalation and warm compresses to face often help relieve pressure -Avoid allergens and excessively dry heat -Sleep with head of bed elevated to encourage drainage. -Use of a humidifier if environment is heated by dry forced - air system -Avoid smoking, second-hand smoke and air pollutants. -You may try decongestants such as Sudafed (purchase at pharmacy) or Sudafed PE for congestion relief. Decongestants can keep you awake at night. Do not use decongestants if you have high blood pressure or if you are Pseudoephedrine (Sudafed) and Phenylephrine (Sudafed PE) are generally con sidered safe for breast feeding mothers. -If you are not improving or worsening, or develop facial swelling,in the next 3-5 days you must RETURN to the clinic, go to your PCP, or Urgent Care/ER to be SEEN and reevaluated. No further prescriptions or refills will be given by phone without another evaluation. Orders Placed This Encounter ??? doxycycline hyclate (VIBRAMYCIN) 100 MG tablet Sig: Take 1 tablet by mouth 2 times daily for 5 days Dispense: 10 tablet Refill: 0 May interchange for whichever salt form is preferred. ??? benzonatate (TESSALON) 200 MG capsule Sig: Take 1 capsule by mouth 3 times daily as needed for Cough Dispense: 30 capsule Refill: 0 No results found for this or any previous visit (from the past 24 hour(s)). UTER EQUIPMENT INSTALLER documented in this encounter Plan of Treatment Not on file documented as of this encounter Visit Diagnoses Diagnosis Acute maxillary sinusitis, recurrence not specified- Primary documented in this encounter
--- OUTSIDE RECORDS SUMMARY | 2024-11-14 04:33 | XMS_ITS | Patient Health Summary ---
Author Organization [facility] Address [address] [place] [address] Care Team Providers Care Cheese Weigher Name Role Phone Unavailable Primary Care Provider Unavailabl e Note from [facility],non-owned Affiliates and Associated Physician Practices is amultiple site organization consisting of ambulatory clinics and hospital sitesin [place], [place], [place] and [place]. This disclosure is being madepursuant to the Care Everywhere program and may not contain all information available regarding this patient. Last updated 18.[facility] Allergies No known active allergies Medications * Be aware that medications may not be up to date on this document. Alwaysverify current medications with the patient. * HYDROCODONE-ACETAMINOPHEN PO * traMADol (ULTRAM) 50 MG tablet Take 50 mg by mouth every 6 hours as needed for Pain * benzonatate (TESSALON) 200 MG capsule(Started 12/04/2018) Take 1 capsule by mouth 3 times daily as needed for Cough Social History Tobacco Use Types Packs/Day Years Used Date Smoking Tobacco: Never Smokeless Tobacco: Never Comments:e cig Sex and Gender Information Value Date Recorded Sex Assigned at Not on file Gender Identity Not on file Sexual Orientation Not on file Last Filed Vital Signs Vital Sign Reading Time Taken Comments Blood Pressure 118/78 12/04/2018 12:30 PM BARBER APPRENTICE Pulse 88 12/04/2018 12:30 PM BARBER APPRENTICE Temperature 37.1 ??C (98.8 ??F) 12/04/2018 12:[address] Respiratory Rate 16 12/04/2018 12:30 PM BARBER APPRENTICE Oxygen Saturation 99% 12/04/2018 12:30 PM BARBER APPRENTICE Inhaled Oxygen Concentration - - Weight 86.2 kg (190 lb) 12/04/2018 12:30 PM BARBER APPRENTICE Height 180.3 cm (5' 11 ) 12/04/2018 12:30 PM BARBER APPRENTICE Body Mass Index 26.5 12/04/2018 12:30 PM BARBER APPRENTICE
--- OUTSIDE RECORDS SUMMARY | 2024-11-14 04:33 | XMS_ITS | Encounter Summary ---
Author Organization [facility] Address [address] [place] [address] Care Team Providers Care Sand Car Worker Name Role Phone Unavailable Primary Care Provider Unavailabl e Reason for Visit * Reason Onset Date Comments Follow-up 12/06/2018 Encounter Details Date Type Department Care Team (Late st Contact Info) Description 12/06/2018 Telephone [facility] AT [address] [phone] Amanuel Kimball, C 13 CATAPULT OPERATOR-METEOROLOGY TEACHER [address] [place] [phone] Follow-up Social History Tobacco Use Types Packs/Day Years Used Date Smoking Tobacco: Never Smokeless Tobacco: Never Comments:e cig Sex and Gender Information Value Date Recorded Sex Assigned at Not on file Gender Identity Not on file Sexual Orientation Not on file documented as of this encounter Plan of Treatment Not on file documented as of this encounter Visit Diagnoses Not on filedocumented in this encounter
--- OUTSIDE RECORDS SUMMARY | 2024-11-14 04:33 | XMS_ITS | Referral Summary ---
Author Organization [facility] Address [address] [place] [address] Care Team Providers Care Head Holder Name Role Phone Unavailable Primary Care Provider Unavailabl e Source Comments [facility],non-owned Affiliates and Associated Physician Practices is amultiple site organization consisting of ambulatory clinics and hospital sitesin [place], [place], [place] and [place]. This disclosure is being madepursuant to the Care Everywhere program and may not contain all information available regarding this patient. Last updated 18.[facility] Allergies No known active allergies Medications * [...] needed for Cough 30 capsule 12/04/2018 Active Social History Tobacco Use Types Packs/Day Years Used Date Smoking Tobacco: Never Smokeless Tobacco: Never Comments:e cig Sex and Gender Information Value Date Recorded Sex Assigned at Not on file Gender Identity Not on file Sexual Orientation Not on file Last Filed Vital Signs Vital Sign Reading Time Taken Comments Blood Pressure 118/78 12/04/2018 12:30 PM CONTINUOUS IMPROVEMENT ENGINEER Pulse 88 12/04/2018 12:30 PM CONTINUOUS IMPROVEMENT ENGINEER Temperature 37.1 ??C (98.8 ??F) 12/04/2018 12:[address] Respiratory Rate 16 12/04/2018 12:30 PM CONTINUOUS IMPROVEMENT ENGINEER Oxygen Saturation 99% 12/04/2018 12:30 PM CONTINUOUS IMPROVEMENT ENGINEER Inhaled Oxygen Concentration - - Weight 86.2 kg (190 lb) 12/04/2018 12:30 PM CONTINUOUS IMPROVEMENT ENGINEER Height 180.3 cm (5' 11 ) 12/04/2018 12:30 PM CONTINUOUS IMPROVEMENT ENGINEER Body Mass Index 26.5 12/04/2018 12:30 PM CONTINUOUS IMPROVEMENT ENGINEER Plan of Treatment Not on file
--- OUTSIDE RECORDS SUMMARY | 2024-11-14 06:01 | XMS_ITS | Continuity of Care Document ---
Author Name [facility] Organization [facility] Care Team Providers Care Facilities Flight Check Pilot Name Role Phone 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 It does not include entries that were removed or entered in error. Problem Status Onset Date Problem Type Date of Resolution Comments Source adjustment disorder with anxiety and depressed mood Active Condition [facility] visit for: administrative purpose Active Condition DoD carbuncle in groin Active Condition DoD lymphangitis acute Inactive Condition Do D iliotibial band friction syndrome Active Condition [facility] patellofemoral syndrome Active Condition [facility] no psychiatric diagnosis or condition on axis I Inactive Condition [facility] psychiatric diagnosis or condition deferred on axis I Active Condition DoD visit for: services physical Inactive Condition [facility] Patient Counseling: Inactive Condition D oD [...] acquired deformity of foot cavus Active Condition [facility] Pain / Temp Decrease Leg / Foot Active Condition [facility] knee sprain Inactive Condition DoD upper respiratory infection Inactive Condition DoD Abnormal blood pressure Active Condition [facility] Acute posttraumatic stress disorder following combat (SNOMED CT 526793264) Active Condition [facility] Admits alcohol use Active Condition [facility] Alcohol abuse Active Condition [facility] Anxiety * (ICD-9-CM 300.00/300.09) Active Condition [facility] Attention-deficit hyperactivity disorder * Active Condition [facility] Bilateral carpal tunnel syndrome Active Condition [facility] Chronic depression Active Condition [facility] Concussion (ICD-9-CM 850.9) Active Condition [facility] Depression * (ICD-9-CM 311./300.4) Active Condition [facility] Hypokalemia Active Condition [facility] Insomnia Active Condition [facility] Low back pain (SNOMED CT 049032884) Active Condition [facility] Lumbosacral radiculopathy (SNOMED CT 6777158) Active Condition [facility] Pain Active Condition [facility] Palpitations (ICD-9-CM 785.1) [address] [facility] Posttraumatic stress disorder Active Condition [facility] Routine General Medical Examination at a Health Care Facility * (ICD-9-CM V70.0) Active Condition [facility] Tobacco use Active Condition [facility] Traumatic brain injury with no loss of consciousness (SNOMED CT 633011452) Active Condition [facility] Unemployment Active Condition [facility] Diagnosis: ICD-10-CM G56.01 Carpal tunnel syndrome, right upper limb Active Diagnosis [facility] Diagnosis: ICD-10-CM Z04.89 Encounter for examination and observation for oth reasons Active Diagnosis [facility] Diagnosis: ICD-10-CM Z01.810 Encounter for preprocedural cardiovascular examination Active Diagnosis [facility] Diagnosis: ICD-10-CM G56.03 Carpal tunnel syndrome, bilateral upper limbs Active Diagnosis [facility] Diagnosis: ICD-10-CM F32.89 Other specified depressive episodes Active Diagnosis [facility] Diagnosis: ICD-10-CM R03.0 Elevated blood-pressure reading, w/o diagnosis of htn Active Diagnosis [facility] Diagnosis: ICD-10-CM F10.90 Alcohol use, unspecified, uncomplicated Active Diagnosis [facility] Diagnosis: ICD-10-CM Z72.0 Tobacco use Active Diagnosis [facility] Diagnosis: ICD-10-CM R52 Pain, unspecified Active Diagnosis [facility] Diagnosis: ICD-10-CM F43.11 Post-traumatic stress disorder, acute Active Diagnosis [facility] Diagnosis: ICD-10-CM E87.6 Hypokalemia Active Diagnosis [facility] Diagnosis: ICD-10-CM M79.10 Myalgia, unspecified site Active Diagnosis Joe RAMU S [facility] Diagnosis: ICD-10-CM Z59.811 Housing instability, housed, with risk of homelessness Active Diagnosis [facility] Diagnosis: ICD-10-CM H53.71 Glare sensitivity Active Diagnosis Joe MONSEJamaica VARGAS [facility] Diagnosis: ICD-10-CM Z71.9 Counseling, unspecified Active Diagnosis [facility] Medications Combined list of outpatient medications from Department of Defense and [facility] facilities.Medications provided include 1) outpatient medications from the last 15 months, and 2) patient-reported medications. Medication Details Route Status Patient Instructions Prescription Expires Prescription Number Last Dispense Date Ordering Provider Order Date Order Qty Source HYDROXYZINE HCL 25MG TAB TAKE ONE TABLET BY MOUTH THREE TIMES A DAY NEEDED *MAY CAUSE DROWSINE SS* ORAL ACTIVE 07/06/2025 [id number] LOITERSTE INMARIANO 2023 90 [facility] MELOXICAM 15MG TAB TAKE ONE TABLET BY MOUTH ONCE A DAY NEEDED ORAL 06/27/2024 [id number] Ce [facility] 2023 60 [facility] MIRTAZAPINE 30MG TAB TAKE ONE-HALF TABLET BY MOUTH AT BEDTIME ORAL ACTIVE 07/06/2025 [id number] LOITERSTE INMARIANO 2023 45 [facility] POTASSIUM CHLORIDE 20MEQ TAB,SA (DISPERSIBL E) TAKE ONE TABLET BY MOUTH ONCE A DAY TAKE WITH FOOD ORAL DISCONT INUED BY PROVIDE R 04/14/2024 [id number] 4 TALON ZAMORA CARLITOS Guerra 2023 7 [facility] PREGABALIN 50MG CAP,ORAL TAKE ONE CAPSULE BY MOUTH TWICE A DAY *MAY CAUSE DROWSINE SS* ORAL 10/29/2024 [id number] 4 Ce [facility] 2023 60 [facility] THIAMINE 100MG TAB TAKE ONE TABLET BY MOUTH ONCE A DAY FOR DIETARY SUPPLEME NTATION. ORAL DISCONT INUED BY PROVIDE R 10/19/2023 [id number] DEDRA ANTHONY 2021 100 [facility] TRAZODONE HCL 100MG TAB TAKE ONE-HALF TABLET BY MOUTH AT BEDTIME NEEDED FOR MOOD OR SLEEP. ORAL DISCONT INUED BY PROVIDE R 01/17/2024 [id number] 3 EFE ALVARADO 2022 45 [facility] Allergies, Adverse Reactions, Alerts Combined list of allergies from Department of Defense and Veterans Affairs facilities. It does not include entries that were removed or entered in error. Substance Category Reaction Severity Reaction type Status Date Reported Comments Source No Known Allergies Drug allergy (disorder) active 03/14/2009 [facility] Immunizations Combined list of available immunizations from the Department of Defense and Veterans Affairs facilities. 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 Comments Source PNEUMOCOCCAL CONJUGATE PCV20, POLYSACCHARID E [id number] CONJUGATE, ADJUVANT, PF 2021 VIVIANE BHAT LEFT DELTO ID [id number] complet ed [facility] INFLUENZA, UNSPECIFIED FORMULATION 2017 88 complet ed [facility] TDAP 2016 115 complet ed Left Deltoid [facility] INFLUENZA, UNSPECIFIED FORMULATION 2013 88 complet ed [facility] INFLUENZA, UNSPECIFIED FORMULATION 2013 88 complet ed [facility] INFLUENZA, UNSPECIFIED FORMULATION 2012 88 complet [facility] DIVISIO N INFLUENZA, UNSPECIFIED FORMULATION 2011 88 complet [facility] N TDAP 2010 115 [facility] influenza virus vaccine, split virus (incl. purified surface antigen)-reti red CODE 1 2010 UNK 15 Unknown (UNK) comple [facility] influenza virus vaccine, split virus (incl. purified surface antigen)- retired CODE [facility] INFLUENZA, UNSPECIFIED FORMULATION 2009 88 complet [facility] N influenza virus vaccine, live, attenuated, for intranasal use 1 2008 [id number] [employer] (MED) complet influenza virus vaccine, live, attenuate d, for intranasa l use DoD influenza virus vaccine, live, attenuated, for intranasal use 1 2007 [id number] Unknown (UNK) comple t influenza virus vaccine, live, attenuate d, for intranasa l use DoD anthrax vaccine 4 2007 UNK 24 Unknown (UNK) comple t ed anthrax vaccine DoD TDAP 2007 115 complet [facility] N influenza virus vaccine, split virus (incl. purified surface antigen)-reti red CODE 1 2006 [id number] 15 Unknown (UNK) complet influenza virus vaccine, split virus (incl. purified surface antigen)- retired CODE DoD vaccinia (smallpox) vaccine 1 2006 [id number] 75 [place] (ASHLEY) complet ed vaccinia (smallpox ) vaccine DoD typhoid Vi capsular polysaccharid e vaccine 1 2006 [id number] [employer] (AVB) complet ed typhoid Vi capsular polysacch aride vaccine DoD varicella virus vaccine 1 2006 UNK 21 Unknown (UNK) Not Given varicella virus vaccine DoD anthrax vaccine 3 2006 [id number] [employer] [place] ([facility]) complet ed anthrax vaccine DoD hepatitis A and hepatitis B vaccine 3 2006 [id number] 104 [employer] (SKB) complet ed hepatitis A and hepatitis B vaccine DoD influenza virus vaccine, split virus (incl. purified surface antigen)-reti red CODE 1 2006 UNK 15 Unknown (UNK) comple t ed influenza virus vaccine, split virus (incl. purified surface antigen)- retired CODE DoD vaccinia (smallpox) vaccine 1 2004 UNK 75 Unknown (UNK) comple t ed vaccinia (smallpox ) vaccine DoD anthrax vaccine 2 2004 [id number] Cecille (BP) complet ed anthrax vaccine DoD hepatitis B vaccine, adult dosage 3 2004 [id number] 43 [facility] ([facility]) complet ed hepatitis B vaccine, adult dosage DoD influenza virus vaccine, split virus (incl. purified surface antigen)-reti red CODE 1 2004 UNK 15 Sanofi Pasteur ([facility]) complet ed influenza virus vaccine, split virus (incl. purified surface antigen)- retired CODE DoD anthrax vaccine 1 2004 [id number] 24 Cecille (BP) complet ed anthrax vaccine DoD typhoid Vi capsular polysaccharid e vaccine 1 2004 [id number] Sanofi Pasteur ([facility]) complet ed typhoid Vi capsular polysacch aride [...] 2 Lf of diphtheria toxoid) 1 2003 [id number] Sanofi Pasteur ([facility]) complet ed tetanus and diphtheri a toxoids, adsorbed, preservat migdalia free, for adult use (2 Lf of tetanus toxoid and 2 Lf of diphtheri a toxoid) DoD poliovirus vaccine, inactivated 1 2003 [id number] 10 Sanofi Pasteur ([facility]) complet ed polioviru s vaccine, inactivat ed DoD meningococcal polysaccharid e vaccine (MPSV4) 1 2003 UNK 32 Unknown (UNK) comple t ed meningoco ccal polysacch aride vaccine (MPSV4) DoD pneumococcal polysaccharid e vaccine, 23 valent 1 2003 [id number] Sanofi Pasteur ([facility]) complet ed pneumococ john polysacch aride vaccine, 23 valent DoD hepatitis A and hepatitis B vaccine 1 2003 [id number] [employer] (SKB) complet ed hepatitis A and [...] its performance characteris tics confirmed by the [facility] laboratory thru method comparison with reference laboratory and medication chart review. The laboratory is regulated under CLIA as qualified to perform high-comple xity testing. This test is used for clinical purposes in conjunction with other laboratory tests. Ordering Provider: OSBALDO [employer] Report Released Date/Time: March 30, 2024 11:53 AM Reporting Lab: [facility] [id number] Performing Lab: [facility] [address] [place] [address] DIVISION METHADON E PANEL (STL) AMPHETAMIN E [PRESENCE] IN URINE BY SCREEN METHOD Negative ng/mL 03/30 Specimen Type: URINE Comment: The cut-off value for this test was laboratory developed and its performance characteris tics confirmed by the [facility] laboratory thru method comparison with reference laboratory and medication chart review. The laboratory is regulated under CLIA as qualified to perform high-comple xity testing. This test is used for clinical purposes in conjunction with other laboratory tests. Ordering Provider: OSBALDO NGO Report Released Date/Time: March 30, 2024 11:53 AM Reporting Lab: [facility]1 [facility] [address] Performing Lab: [facility]1 [facility] [id number] [place] [address] METHADON E PANEL (STL) BENZOYLECG ONINE [PRESENCE] IN URINE Negative ng/mL 03/30 Specimen Type: URINE Comment: The cut-off value for this test was laboratory developed and its performance characteris tics confirmed by the [facility] laboratory thru method comparison with reference laboratory and medication chart review. The laboratory is regulated under CLIA as qualified to perform high-comple xity testing. This test is used for clinical purposes in conjunction with other laboratory tests. Ordering Provider: OSBALDO NGO Report Released Date/Time: March 30, 2024 11:53 AM Reporting Lab: [facility] [place] [address] Performing Lab: [facility] [address] METHADON E PANEL (STL) BENZODIAZE PINES [PRESENCE] IN URINE BY SCREEN METHOD Negative ng/mL 03/30 Specimen Type: URINE Comment: The cut-off value for this test was laboratory developed and its performance characteris tics confirmed by the [facility] laboratory thru method comparison with reference laboratory and medication chart review. The laboratory is regulated under CLIA as qualified to perform high-comple xity testing. This test is used for clinical purposes in conjunction with other laboratory tests. Ordering Provider: OSBALDO NGO Report Released Date/Time: March 30, 2024 11:53 AM Reporting Lab: [facility]1 [place] [address] Performing Lab: [facility] METHADON E PANEL (STL) CANNABINOI DS [PRESENCE] IN URINE BY SCREEN METHOD 94-POSng /mL 03/30 Specimen Type: URINE Comment: The cut-off value for this test was laboratory developed and its performance characteris tics confirmed by the [facility] laboratory thru method comparison with reference laboratory and medication chart review. The laboratory is regulated under CLIA as qualified to perform high-comple xity testing. This test is used for clinical purposes in conjunction with other laboratory tests. Ordering Provider: OSBALDO NGO Report Released Date/Time: March 30, 2024 11:53 AM Reporting Lab: [facility]1 [place] [address] Performing Lab: [facility] #[address] METHADON E PANEL (STL) METHADONE [PRESENCE] IN URINE Negative ng/mL 03/30 Specimen Type: URINE Comment: The cut-off value for this test was laboratory developed and its performance characteris tics confirmed by the [facility] laboratory thru method comparison with reference laboratory and medication chart review. The laboratory is regulated under CLIA as qualified to perform high-comple xity testing. This test is used for clinical purposes in conjunction with other laboratory tests. Ordering Provider: OSBALDO NGO Report Released Date/Time: March 30, 2024 11:53 AM Reporting Lab: [facility]1 [place] [address] Performing Lab: [facility] #[address] DIVISION METHADON E PANEL (STL) OPIATES [PRESENCE] IN URINE BY SCREEN METHOD Negative ng/mL 03/30 Specimen Type: URINE Comment: The cut-off value for this test was laboratory developed and its performance characteris tics confirmed by the [facility] laboratory thru method comparison with reference laboratory and medication chart review. The laboratory is regulated under CLIA as qualified to perform high-comple xity testing. This test is used for clinical purposes in conjunction with other laboratory tests. Ordering Provider: OSBALDO NGO Report Released Date/Time: March 30, 2024 11:53 AM Reporting Lab: [facility]1 [place] [address] Performing Lab: [facility] #1 [place] [address] [place] [address] METHADON E PANEL (STL) CREATININE [MASS/VOLU ME] IN URINE 108.2 mg/dL 63.0 - 166.0 03/30 Specimen Type: URINE Comment: The cut-off value for this test was laboratory developed and its performance characteris tics confirmed by the [facility] laboratory thru method comparison with reference laboratory and medication chart review. The laboratory is regulated under CLIA as qualified to perform high-comple xity testing. This test is used for clinical purposes in conjunction with other laboratory tests. Ordering Provider: OSBALDO NGO Report Released Date/Time: March 30, 2024 11:53 AM Reporting Lab: [facility]1 [place] [address] Performing Lab: [address] METHADON E PANEL (STL) OXYCODONE CUTOFF [MASS/VOLU ME] IN URINE FOR SCREEN METHOD Negative ng/mL 03/30 Specimen Type: URINE Comment: The cut-off value for this test was laboratory developed and its performance characteris tics confirmed by the [facility] laboratory thru method comparison with reference laboratory and medication chart review. The laboratory is regulated under CLIA as qualified to perform high-comple xity testing. This test is used for clinical purposes in conjunction with other laboratory tests. Ordering Provider: OSBALDO NGO Report Released Date/Time: March 30, 2024 11:53 AM Reporting Lab: [facility] [address] [place] [address] Performing Lab: [facility] [address] DIVISION METHADON E PANEL (STL) BUPRENORPH INE [PRESENCE] IN URINE Negative ng/mL 03/30 Specimen Type: URINE Comment: The cut-off value for this test was laboratory developed and its performance characteris tics confirmed by the [facility] laboratory thru method comparison with reference laboratory and medication chart review. The laboratory is regulated under CLIA as qualified to perform high-comple xity testing. This test is used for clinical purposes in conjunction with other laboratory tests. Ordering Provider: OSBALDO NGO Report Released Date/Time: March 30, 2024 11:53 AM Reporting Lab: [facility] #1 [place] [address] Performing Lab: [facility] [address] METHADON E PANEL (STL) FENTANYL [PRESENCE] IN URINE Negative ng/mL 03/30 Specimen Type: URINE Comment: The cut-off value for this test was laboratory developed and its performance characteris tics confirmed by the [facility] laboratory thru method comparison with reference laboratory and medication chart review. The laboratory is regulated under CLIA as qualified to perform high-comple xity testing. This test is used for clinical purposes in conjunction with other laboratory tests. Ordering Provider: OSBALDO NGO Report Released Date/Time: March 30, 2024 11:53 AM Reporting Lab: [facility] #1 [place] [address] Performing Lab: [facility] #[address] CBC LEUKOCYTES [#/VOLUME] IN BLOOD BY AUTOMATED COUNT 7.1 10*3/uL 3.6 - 11.2 03/30 Specimen Type: BLOOD No comment entered. Ordering Provider: OSBALDO NGO Report Released Date/Time: March 30, 2024 11:54 AM Reporting Lab: [facility]1 [place] [address] Performing Lab: [facility] [address] CBC ERYTHROCYT ES [#/VOLUME] IN BLOOD BY AUTOMATED COUNT 4.14 10*6/uL 4.10 - 5.70 03/30 Specimen Type: BLOOD No comment entered. Ordering Provider: OSBALDO NGO Report Released Date/Time: March 30, 2024 11:54 AM Reporting Lab: [facility] #1 [place] [address] Performing Lab: [facility] [address] [facility] CBC HEMOGLOBIN [MASS/VOLU ME] IN BLOOD 13.6 g/dL 13.1 - 16.8 03/30 Specimen Type: BLOOD No comment entered. Ordering Provider: OSBALDO NGO Report Released Date/Time: March 30, 2024 11:54 AM Reporting Lab: [facility] #1 [place] [address] Performing Lab: [facility] #[address] DIVISION CBC HEMATOCRIT [VOLUME FRACTION] OF BLOOD 38.0 38.2 - 48.4 03/30 L Specimen Type: BLOOD No comment entered. Ordering Provider: OSBALDO NGO Report Released Date/Time: March 30, 2024 11:54 AM Reporting Lab: [facility] #1 [place] [address] Performing Lab: [facility] #[address] DIVISION CBC MCV [ENTITIC VOLUME] BY AUTOMATED COUNT 91.8 fL 80.0 - 100.0 03/30 Specimen Type: BLOOD No comment entered. Ordering Provider: OSBALDO NGO Report Released Date/Time: March 30, 2024 11:54 AM Reporting Lab: [facility]1 [place] [address] Performing Lab: [facility] #[address] DIVISION CBC MCH [ENTITIC MASS] BY AUTOMATED COUNT 32.9 pg 27.0 - 34.0 03/30 Specimen Type: BLOOD No comment entered. Ordering Provider: OSBALDO NGO Report Released Date/Time: March 30, 2024 11:54 AM Reporting Lab: [facility] #1 [place] [address] Performing Lab: [facility] #1 [facility] [phone] DIVISION CBC MCHC [MASS/VOLU ME] BY AUTOMATED COUNT 35.8 g/dL 33.0 - 36.0 03/30 Specimen Type: BLOOD No comment entered. Ordering Provider: OSBALDO NGO Report Released Date/Time: March 30, 2024 11:54 AM Reporting Lab: [facility] #1 [place] [address] Performing Lab: [facility] #[address] CBC PLATELETS [#/VOLUME] IN BLOOD BY AUTOMATED COUNT 306 10*3/uL 150 - 400 03/30 Specimen Type: BLOOD No comment entered. Ordering Provider: OSBALDO NGO Report Released Date/Time: March 30, 2024 11:54 AM Reporting Lab: [facility]1 [place] [address] Performing Lab: [facility]1 [facility] [phone] [place] [address] DIVISION CBC PLATELET MEAN VOLUME [ENTITIC VOLUME] IN BLOOD BY AUTOMATED COUNT 8.8 fL 7.5 - 11.2 03/30 Specimen Type: BLOOD No comment entered. Ordering Provider: OSBALDO NGO Report Released Date/Time: March 30, 2024 11:54 AM Reporting Lab: [facility]1 [place] [address] Performing Lab: [facility]1 [facility] [phone] [place] [address] DIVISION CBC ERYTHROCYT E DISTRIBUTI ON WIDTH [RATIO] BY AUTOMATED COUNT 11.5 11.8 - 15.1 03/30 L Specimen Type: BLOOD No comment entered. Ordering Provider: OSBALDO NGO Report Released Date/Time: March 30, 2024 11:54 AM Reporting Lab: [facility] #1 [place] [address] Performing Lab: [facility] #1 [facility] [id number] [place] [address] DIVISION CBC LYMPHOCYTE S/100 LEUKOCYTES IN BLOOD BY AUTOMATED COUNT 43 03/30 Specimen Type: BLOOD No comment entered. Ordering Provider: OSBALDO NOG Report Released Date/Time: March 30, 2024 11:54 AM Reporting Lab: [facility] #1 [place] [address] Performing Lab: [facility] #[address] DIVISION CBC MONOCYTES/ 100 LEUKOCYTES IN BLOOD BY AUTOMATED COUNT 9 03/30 Specimen Type: BLOOD No comment entered. Ordering Provider: [employer] Report Released Date/Time: March 30, 2024 11:54 AM Reporting Lab: [facility] [place] [address] Performing Lab: [facility] DIVISION CBC NEUTROPHIL S/100 LEUKOCYTES IN BLOOD BY AUTOMATED COUNT 44 03/30 Specimen Type: BLOOD No comment entered. Ordering Provider: [employer] Report Released Date/Time: March 30, 2024 11:54 AM Reporting Lab: [facility] [address] Performing Lab: [facility] DIVISION CBC EOSINOPHIL S/100 LEUKOCYTES IN BLOOD BY AUTOMATED COUNT 4 03/30 Specimen Type: BLOOD No comment entered. Ordering Provider: [employer] Report Released Date/Time: March 30, 2024 11:54 AM Reporting Lab: [facility]1 [place] [address] Performing Lab: [facility] DIVISION CBC BASOPHILS/ 100 LEUKOCYTES IN BLOOD BY AUTOMATED COUNT 1 03/30 Specimen Type: BLOOD No comment entered. Ordering Provider: [employer] Report Released Date/Time: March 30, 2024 11:54 AM Reporting Lab: [facility] [place] [address] Performing Lab: [facility] DIVISION CBC LYMPHOCYTE S [#/VOLUME] IN BLOOD BY AUTOMATED COUNT 3.01 10*3/uL 0.77 - 4.50 03/30 Specimen Type: BLOOD No comment entered. Ordering Provider: [employer] Report Released Date/Time: March 30, 2024 11:54 AM Reporting Lab: [facility]1 [place] [address] Performing Lab: [facility] DIVISION CBC MONOCYTES [#/VOLUME] IN BLOOD BY AUTOMATED COUNT 0.63 10*3/uL 0.19 - 0.80 03/30 Specimen Type: BLOOD No comment entered. Ordering Provider: [employer] Report Released Date/Time: March 30, 2024 11:54 AM Reporting Lab: [facility] [place] [address] Performing Lab: [facility] DIVISION CBC NEUTROPHIL S [#/VOLUME] IN BLOOD BY AUTOMATED COUNT 3.08 10*3/uL 2.10 - 8.00 03/30 Specimen Type: BLOOD No comment entered. Ordering Provider: [employer] Report Released Date/Time: March 30, 2024 11:54 AM Reporting Lab: [facility] [place] [address] Performing Lab: [facility] DIVISION CBC EOSINOPHIL S [#/VOLUME] IN BLOOD BY AUTOMATED COUNT 0.26 10*3/uL 0.00 - 0.60 03/30 Specimen Type: BLOOD No comment entered. Ordering Provider: [employer] Report Released Date/Time: March 30, 2024 11:54 AM Reporting Lab: [facility]1 [place] [address] Performing Lab: [facility] DIVISION CBC BASOPHILS [#/VOLUME] IN BLOOD BY AUTOMATED COUNT 0.07 10*3/uL 0.00 - 0.20 03/30 Specimen Type: BLOOD No comment entered. Ordering Provider: [employer] Report Released Date/Time: March 30, 2024 11:54 AM Reporting Lab: [facility]1 [place] [address] Performing Lab: [facility] DIVISION COMPREHE NSIVE METABOLI C PANEL CREATININE [MASS/VOLU ME] IN SERUM OR PLASMA 0.78 mg/dL 0.70 - 1.30 03/30 Specimen Type: PLASMA Comment: No hemolysis noted. Ordering Provider: [employer] Report Released Date/Time: March 30, 2024 11:54 AM Reporting Lab: [facility]1 [place] [address] Performing Lab: [facility] DIVISION COMPREHE NSIVE METABOLI C PANEL UREA NITROGEN [MASS/VOLU ME] IN SERUM OR PLASMA 7.5 mg/dL 9.0 - 25.0 03/30 L Specimen Type: PLASMA Comment: No hemolysis noted. Ordering Provider: [employer] Report Released Date/Time: March 30, 2024 11:54 AM Reporting Lab: [facility]1 [place] [address] Performing Lab: [facility]1 [facility] [id number] [place] [address] DIVISION COMPREHE NSIVE METABOLI C PANEL GLUCOSE [MASS/VOLU ME] IN SERUM OR PLASMA 104 mg/dL 72 - 99 03/30 H Specimen Type: PLASMA Comment: No hemolysis noted. Ordering Provider: [employer] Report Released Date/Time: March 30, 2024 11:54 AM Reporting Lab: [facility]1 [place] [address] Performing Lab: [facility] DIVISION COMPREHE NSIVE METABOLI C PANEL SODIUM [MOLES/VOL UME] IN SERUM OR PLASMA 139 meq/L 136 - 145 03/30 Specimen Type: PLASMA Comment: No hemolysis noted. Ordering Provider: [employer] Report Released Date/Time: March 30, 2024 11:54 AM Reporting Lab: [facility]1 [place] [address] Performing Lab: [facility] DIVISION COMPREHE NSIVE METABOLI C PANEL POTASSIUM [MOLES/VOL UME] IN SERUM OR PLASMA 3.8 meq/L 3.5 - 5.0 03/30 Specimen Type: PLASMA Comment: No hemolysis noted. Ordering Provider: [employer] Report Released Date/Time: March 30, 2024 11:54 AM Reporting Lab: [facility]1 [place] [address] Performing Lab: [facility] DIVISION COMPREHE NSIVE METABOLI C PANEL CHLORIDE [MOLES/VOL UME] IN SERUM OR PLASMA 103 meq/L 98 - 107 03/30 Specimen Type: PLASMA Comment: No hemolysis noted. Ordering Provider: [employer] Report Released Date/Time: March 30, 2024 11:54 AM Reporting Lab: [facility]1 [place] [address] Performing Lab: [facility] DIVISION COMPREHE NSIVE METABOLI C PANEL CARBON DIOXIDE, TOTAL [MOLES/VOL UME] IN SERUM OR PLASMA 27 meq/L 22 - 31 03/30 Specimen Type: PLASMA Comment: No hemolysis noted. Ordering Provider: [employer] Report Released Date/Time: March 30, 2024 11:54 AM Reporting Lab: [facility]1 [place] [address] Performing Lab: [facility] DIVISION COMPREHE NSIVE METABOLI C PANEL CALCIUM [MASS/VOLU ME] IN SERUM OR PLASMA 9.5 mg/dL 8.4 - 10.4 03/30 Specimen Type: PLASMA Comment: No hemolysis noted. Ordering Provider: [employer] Report Released Date/Time: March 30, 2024 11:54 AM Reporting Lab: [facility]1 [place] [address] Performing Lab: [facility] DIVISION COMPREHE NSIVE METABOLI C PANEL PROTEIN [MASS/VOLU ME] IN SERUM OR PLASMA 6.9 g/dL 6.0 - 8.6 03/30 Specimen Type: PLASMA Comment: No hemolysis noted. Ordering Provider: [employer] Report Released Date/Time: March 30, 2024 11:54 AM Reporting Lab: [facility]1 [place] [address] Performing Lab: [facility] DIVISION COMPREHE NSIVE METABOLI C PANEL ALBUMIN [MASS/VOLU ME] IN SERUM OR PLASMA 4.3 g/dL 3.4 - 5.0 03/30 Specimen Type: PLASMA Comment: No hemolysis noted. Ordering Provider: [employer] Report Released Date/Time: March 30, 2024 11:54 AM Reporting Lab: [facility]1 [place] [address] Performing Lab: [facility] DIVISION COMPREHE NSIVE METABOLI C PANEL BILIRUBIN. TOTAL [MASS/VOLU ME] IN SERUM OR PLASMA 0.6 mg/dL 0.2 - 1.2 03/30 Specimen Type: PLASMA Comment: No hemolysis noted. Ordering Provider: [employer] Report Released Date/Time: March 30, 2024 11:54 AM Reporting Lab: [facility]1 [place] [address] Performing Lab: [facility] DIVISION COMPREHE NSIVE METABOLI C PANEL ALKALINE PHOSPHATAS E [ENZYMATIC ACTIVITY/V OLUME] IN SERUM OR PLASMA 57 U/L 40 - 150 03/30 Specimen Type: PLASMA Comment: No hemolysis noted. Ordering Provider: [employer] Report Released Date/Time: March 30, 2024 11:54 AM Reporting Lab: [facility]1 [place] [address] Performing Lab: [facility] DIVISION COMPREHE NSIVE METABOLI C PANEL ASPARTATE AMINOTRANS FERASE [ENZYMATIC ACTIVITY/V OLUME] IN SERUM OR PLASMA 31 U/L 5 - 34 03/30 Specimen Type: PLASMA Comment: No hemolysis noted. Ordering Provider: [employer] Report Released Date/Time: March 30, 2024 11:54 AM Reporting Lab: [facility]1 [place] [address] Performing Lab: [facility]1 [facility] [id number] DIVISION COMPREHE NSIVE METABOLI C PANEL ALANINE AMINOTRANS FERASE [ENZYMATIC ACTIVITY/V OLUME] IN SERUM OR PLASMA 24 U/L 8 - 40 03/30 Specimen Type: PLASMA Comment: No hemolysis noted. Ordering Provider: [employer] Report Released Date/Time: March 30, 2024 11:54 AM Reporting Lab: [facility]1 [place] [address] Performing Lab: [facility]1 [place] [id number] DIVISION COMPREHE NSIVE METABOLI C PANEL GLOMERULAR FILTRATION RATE/1.73 SQ M.PREDICTE D [VOLUME RATE/AREA] IN SERUM, PLASMA OR BLOOD BY CREATININE -BASED FORMULA (CKD-EPI 2020) 114.19 60 03/30 Specimen Type: PLASMA Comment: No hemolysis noted. Ordering Provider: [employer] Report Released Date/Time: March 30, 2024 11:54 AM Reporting Lab: [facility]1 [place] [address] Performing Lab: [facility] DIVISION HGA1C HEMOGLOBIN A1C/HEMOGL OBIN.TOTAL IN BLOOD 4.8 4.0 - 6.0 03/30 Specimen Type: BLOOD No comment entered. Ordering Provider: [employer] Report Released Date/Time: March 30, 2024 11:54 AM Reporting Lab: [facility]1 [place] [address] Performing Lab: [facility] DIVISION TSH (MA-PB) THYROTROPI N [UNITS/VOL UME] IN SERUM OR PLASMA 1.066 u[IU]/mL 0.470 - 5.000 03/30 Specimen Type: SERUM No comment entered. Ordering Provider: [employer] Report Released Date/Time: March 30, 2024 11:54 AM Reporting Lab: [facility]1 [facility] [address] Performing Lab: [facility] [facility] [address] [facility] BRAIN NATRIURE TIC PEPTIDE NATRIURETI C PEPTIDE B [MASS/VOLU ME] IN SERUM OR PLASMA 38.5 pg/mL 0 - 100 03/15 Specimen Type: PLASMA No comment entered. Ordering Provider: AMBAR RIVERA Report Released Date/Time: Mar 15, 2024 12:00 PM Reporting Lab: [address] [address] Performing Lab: [address] [phone] [place] [address] CBC LEUKOCYTES [#/VOLUME] IN BLOOD BY AUTOMATED COUNT 6.4 10*3/uL 3.6 - 11.2 03/15 Specimen Type: BLOOD No comment entered. Ordering Provider: AMBAR RIVERA Report Released Date/Time: Mar 15, 2024 12:00 PM Reporting Lab: [address] [address] Performing Lab: [address] [address] [facility] CBC ERYTHROCYT ES [#/VOLUME] IN BLOOD BY AUTOMATED COUNT 3.86 10*6/uL 4.10 - 5.70 03/15 L Specimen Type: BLOOD No comment entered. Ordering Provider: AMBAR RIVERA Report Released Date/Time: Mar 15, 2024 12:00 PM Reporting Lab: [address] [address] Performing Lab: [address] [address] [facility] CBC HEMOGLOBIN [MASS/VOLU ME] IN BLOOD 12.6 g/dL 13.1 - 16.8 03/15 L Specimen Type: BLOOD No comment entered. Ordering Provider: AMBAR RIVERA Report Released Date/Time: Mar 15, 2024 12:00 PM Reporting Lab: [address] [address] Performing Lab: [address] [phone] [place] [address] CBC HEMATOCRIT [VOLUME FRACTION] OF BLOOD 38.1 38.2 - 48.4 03/15 L Specimen Type: BLOOD No comment entered. Ordering Provider: AMBAR RIVERA Report Released Date/Time: Mar 15, 2024 12:00 PM Reporting Lab: [address] [address] Performing Lab: [address] [phone] [place] [address] CBC MCV [ENTITIC VOLUME] BY AUTOMATED COUNT 98.7 fL 80.0 - 100.0 03/15 Specimen Type: BLOOD No comment entered. Ordering Provider: AMBAR RIVERA Report Released Date/Time: Mar 15, 2024 12:00 PM Reporting Lab: [address] [address] Performing Lab: [address] [phone] [place] [address] CBC MCH [ENTITIC MASS] BY AUTOMATED COUNT 32.6 pg 27.0 - 34.0 03/15 Specimen Type: BLOOD No comment entered. Ordering Provider: AMBAR RIVERA Report Released Date/Time: Mar 15, 2024 12:00 PM Reporting Lab: [address] [address] Performing Lab: [address] [address] [facility] CBC MCHC [MASS/VOLU ME] BY AUTOMATED COUNT 33.1 g/dL 33.0 - 36.0 03/15 Specimen Type: BLOOD No comment entered. Ordering Provider: AMBAR RIVERA Report Released Date/Time: Mar 15, 2024 12:00 PM Reporting Lab: [address] [address] Performing Lab: [place] [phone] CBC PLATELETS [#/VOLUME] IN BLOOD BY AUTOMATED COUNT 277 10*3/uL 150 - 400 03/15 Specimen Type: BLOOD No comment entered. Ordering Provider: AMBAR RIVERA Report Released Date/Time: Mar 15, 2024 12:00 PM Reporting Lab: [place] [phone] Performing Lab: [place] [phone] [place] [address] CBC PLATELET MEAN VOLUME [ENTITIC VOLUME] IN BLOOD BY AUTOMATED COUNT 9.0 fL 7.5 - 11.2 03/15 Specimen Type: BLOOD No comment entered. Ordering Provider: AMBAR RIVERA Report Released Date/Time: Mar 15, 2024 12:00 PM Reporting Lab: [address] [address] Performing Lab: [address] [address] [facility] CBC ERYTHROCYT E DISTRIBUTI ON WIDTH [RATIO] BY AUTOMATED COUNT 11.9 11.8 - 15.1 03/15 Specimen Type: BLOOD No comment entered. Ordering Provider: AMBAR RIVERA Report Released Date/Time: Mar 15, 2024 12:00 PM Reporting Lab: [address] [address] Performing Lab: [address] [address] [facility] CBC LYMPHOCYTE S/100 LEUKOCYTES IN BLOOD BY AUTOMATED COUNT 37 03/15 Specimen Type: BLOOD No comment entered. Ordering Provider: AMBAR RIVERA Report Released Date/Time: Mar 15, 2024 12:00 PM Reporting Lab: [facility] [address] [facility] [address] Performing Lab: [facility] [address] [facility] [address] [facility] CBC MONOCYTES/ 100 LEUKOCYTES IN BLOOD BY AUTOMATED COUNT 13 03/15 Specimen Type: BLOOD No comment entered. Ordering Provider: AMBAR RIVERA Report Released Date/Time: Mar 15, 2024 12:00 PM Reporting Lab: [facility] [address] [facility] [address] Performing Lab: [facility] [address] [facility] [address] [facility] CBC NEUTROPHIL S/100 LEUKOCYTES IN BLOOD BY AUTOMATED COUNT 44 03/15 Specimen Type: BLOOD No comment entered. Ordering Provider: AMBAR RIVERA Report Released Date/Time: Mar 15, 2024 12:00 PM Reporting Lab: [facility] [address] [facility] [address] Performing Lab: [facility] [address] [facility] [address] [facility] CBC EOSINOPHIL S/100 LEUKOCYTES IN BLOOD BY AUTOMATED COUNT 5 03/15 Specimen Type: BLOOD No comment entered. Ordering Provider: AMBAR RIVERA Report Released Date/Time: Mar 15, 2024 12:00 PM Reporting Lab: [facility] [address] [facility] [address] Performing Lab: [facility] [address] [facility] [address] [facility] CBC BASOPHILS/ 100 LEUKOCYTES IN BLOOD BY AUTOMATED COUNT 1 03/15 Specimen Type: BLOOD No comment entered. Ordering Provider: AMBAR RIVERA Report Released Date/Time: Mar 15, 2024 12:00 PM Reporting Lab: [address] [address] Performing Lab: [address] [address] [facility] CBC LYMPHOCYTE S [#/VOLUME] IN BLOOD BY AUTOMATED COUNT 2.32 10*3/uL 0.77 - 4.50 03/15 Specimen Type: BLOOD No comment entered. Ordering Provider: AMBAR RIVERA Report Released Date/Time: Mar 15, 2024 12:00 PM Reporting Lab: [place] [phone] Performing Lab: [address] [address] [facility] CBC MONOCYTES [#/VOLUME] IN BLOOD BY AUTOMATED COUNT 0.82 10*3/uL 0.19 - 0.80 03/15 H Specimen Type: BLOOD No comment entered. Ordering Provider: AMBAR RIVERA Report Released Date/Time: Mar 15, 2024 12:00 PM Reporting Lab: [address] [address] Performing Lab: [address] [address] [facility] CBC NEUTROPHIL S [#/VOLUME] IN BLOOD BY AUTOMATED COUNT 2.82 10*3/uL 2.10 - 8.00 03/15 Specimen Type: BLOOD No comment entered. Ordering Provider: AMBAR RIVERA Report Released Date/Time: Mar 15, 2024 12:00 PM Reporting Lab: [address] [address] Performing Lab: [address] [address] [facility] CBC EOSINOPHIL S [#/VOLUME] IN BLOOD BY AUTOMATED COUNT 0.29 10*3/uL 0.00 - 0.60 03/15 Specimen Type: BLOOD No comment entered. Ordering Provider: AMBAR RIVERA Report Released Date/Time: Mar 15, 2024 12:00 PM Reporting Lab: [facility] [address] [facility] [address] Performing Lab: [place] [phone] CBC BASOPHILS [#/VOLUME] IN BLOOD BY AUTOMATED COUNT 0.09 10*3/uL 0.00 - 0.20 03/15 Specimen Type: BLOOD No comment entered. Ordering Provider: AMBAR RIVERA Report Released Date/Time: Mar 15, 2024 12:00 PM Reporting Lab: [place] [address] Performing Lab: [address] COMPREHE NSIVE METABOLI C PANEL CREATININE [MASS/VOLU ME] IN SERUM OR PLASMA 0.79 mg/dL 0.7 - 1.3 03/15 Specimen Type: PLASMA Comment: No hemolysis noted. Ordering Provider: AMBAR RIVERA Report Released Date/Time: Mar 15, 2024 12:00 PM Reporting Lab: [place] [address] Performing Lab: [place] [address] [facility] [phone] [place] [address] COMPREHE NSIVE METABOLI C PANEL UREA NITROGEN [MASS/VOLU ME] IN SERUM OR PLASMA 6.3 mg/dL 9.0 - 25.0 03/15 L Specimen Type: PLASMA Comment: No hemolysis noted. Ordering Provider: AMBAR RIVERA Report Released Date/Time: Mar 15, 2024 12:00 PM Reporting Lab: [place] [address] Performing Lab: [address] [facility] [address] [facility] COMPREHE NSIVE METABOLI C PANEL GLUCOSE [MASS/VOLU ME] IN SERUM OR PLASMA 79 mg/dL 72 - 99 03/15 Specimen Type: PLASMA Comment: No hemolysis noted. Ordering Provider: AMABR RIVERA Report Released Date/Time: Mar 15, 2024 12:00 PM Reporting Lab: [place] [address] [facility] [address] Performing Lab: [place] [address] [facility] [address] [facility] COMPREHE NSIVE METABOLI C PANEL SODIUM [MOLES/VOL UME] IN SERUM OR PLASMA 139 meq/L 136 - 145 03/15 Specimen Type: PLASMA Comment: No hemolysis noted. Ordering Provider: AMBAR RIVERA Report Released Date/Time: Mar 15, 2024 12:00 PM Reporting Lab: [place] [address] [facility] [address] Performing Lab: [place] [address] [facility] [address] [facility] COMPREHE NSIVE METABOLI C PANEL POTASSIUM [MOLES/VOL UME] IN SERUM OR PLASMA 3.3 meq/L 3.5 - 5 03/15 L Specimen Type: PLASMA Comment: No hemolysis noted. Ordering Provider: AMBAR RIVERA Report Released Date/Time: Mar 15, 2024 12:00 PM Reporting Lab: [facility] [address] [facility] [address] Performing Lab: [place] [address] [facility] [address] [facility] COMPREHE NSIVE METABOLI C PANEL CHLORIDE [MOLES/VOL UME] IN SERUM OR PLASMA 103 meq/L 98 - 107 03/15 Specimen Type: PLASMA Comment: No hemolysis noted. Ordering Provider: AMBAR RIVERA Report Released Date/Time: Mar 15, 2024 12:00 PM Reporting Lab: [facility] [address] [facility] [address] Performing Lab: [facility] [address] [facility] [address] [facility] COMPREHE NSIVE METABOLI C PANEL CARBON DIOXIDE, TOTAL [MOLES/VOL UME] IN SERUM OR PLASMA 28 meq/L 22 - 31 03/15 Specimen Type: PLASMA Comment: No hemolysis noted. Ordering Provider: AMBAR RIVERA Report Released Date/Time: Mar 15, 2024 12:00 PM Reporting Lab: [place] [address] [facility] [address] Performing Lab: [place] [address] [facility] [phone] [place] [address] COMPREHE NSIVE METABOLI C PANEL CALCIUM [MASS/VOLU ME] IN SERUM OR PLASMA 9.0 mg/dL 8.4 - 10.4 03/15 Specimen Type: PLASMA Comment: No hemolysis noted. Ordering Provider: AMBAR RIVERA Report Released Date/Time: Mar 15, 2024 12:00 PM Reporting Lab: [address] [address] Performing Lab: [place] [address] [facility] [address] [facility] COMPREHE NSIVE METABOLI C PANEL PROTEIN [MASS/VOLU ME] IN SERUM OR PLASMA 6.6 g/dL 6 - 8.6 03/15 Specimen Type: PLASMA Comment: No hemolysis noted. Ordering Provider: AMBAR RIVERA Report Released Date/Time: Mar 15, 2024 12:00 PM Reporting Lab: [address] [phone] Performing Lab: [place] [address] [facility] [address] [facility] COMPREHE NSIVE METABOLI C PANEL ALBUMIN [MASS/VOLU ME] IN SERUM OR PLASMA 3.9 g/dL 3.4 - 5 03/15 Specimen Type: PLASMA Comment: No hemolysis noted. Ordering Provider: AMBAR RIVERA Report Released Date/Time: Mar 15, 2024 12:00 PM Reporting Lab: [place] [address] [place] [phone] Performing Lab: [place] [address] [place] [phone] COMPREHE NSIVE METABOLI C PANEL BILIRUBIN. TOTAL [MASS/VOLU ME] IN SERUM OR PLASMA 0.4 mg/dL 0.2 - 1.2 03/15 Specimen Type: PLASMA Comment: No hemolysis noted. Ordering Provider: AMBAR RIVERA Report Released Date/Time: Mar 15, 2024 12:00 PM Reporting Lab: [place] [address] [place] [address] Performing Lab: [place] [address] [place] [phone] COMPREHE NSIVE METABOLI C PANEL ALKALINE PHOSPHATAS E [ENZYMATIC ACTIVITY/V OLUME] IN SERUM OR PLASMA 54 U/L 40 - 150 03/15 Specimen Type: PLASMA Comment: No hemolysis noted. Ordering Provider: AMBAR RIVERA Report Released Date/Time: Mar 15, 2024 12:00 PM Reporting Lab: [place] [address] [place] [phone] Performing Lab: [place] [address] [facility] [address] [facility] COMPREHE NSIVE METABOLI C PANEL ASPARTATE AMINOTRANS FERASE [ENZYMATIC ACTIVITY/V OLUME] IN SERUM OR PLASMA 53 U/L 5 - 34 03/15 H Specimen Type: PLASMA Comment: No hemolysis noted. Ordering Provider: AMBAR RIVERA Report Released Date/Time: Mar 15, 2024 12:00 PM Reporting Lab: [place] [address] [place] [phone] Performing Lab: [place] [address] [facility] [phone] [facility] COMPREHE NSIVE METABOLI C PANEL ALANINE AMINOTRANS FERASE [ENZYMATIC ACTIVITY/V OLUME] IN SERUM OR PLASMA 37 U/L 8 - 40 03/15 Specimen Type: PLASMA Comment: No hemolysis noted. Ordering Provider: AMBAR RIVERA Report Released Date/Time: Mar 15, 2024 12:00 PM Reporting Lab: [place] [address] [address] [place] [phone] Performing Lab: [place] [address] [place] [phone] [place] [address] COMPREHE NSIVE METABOLI C PANEL GLOMERULAR FILTRATION RATE/1.73 SQ M.PREDICTE D [VOLUME RATE/AREA] IN SERUM, PLASMA OR BLOOD BY CREATININE -BASED FORMULA (CKD-EPI 2020) 113.8 60 03/15 Specimen Type: PLASMA Comment: No hemolysis noted. Ordering Provider: AMBAR RIVERA Report Released Date/Time: Mar 15, 2024 12:00 PM Reporting Lab: [facility] [place] [id number] Performing Lab: [place] [address] [place] [id number] COVID-19 DIAGNOST IC (FLU/RSV )(ST) INFLUENZA VIRUS A AG [PRESENCE] IN NASOPHARYN [...] Mar 15, 2024 12:00 PM Reporting Lab: [place] [address] [facility] [address] Performing Lab: [id number] [place] [address] COVID-19 DIAGNOST IC (FLU/RSV )([facility]) INFLUENZA B Negative 03/15 [...] Mar 15, 2024 12:00 PM Reporting Lab: [place] [address] Performing Lab: [id number] [place] [address] COVID-19 DIAGNOST IC (FLU/RSV )([facility]) SARS-COV-2 (COVID-19) RNA [PRESENCE] IN RESPIRATOR Y SYSTEM SPECIMEN BY DNAIEL WITH PROBE DETECTION Not Detected 03/15 Specimen [...] Mar 15, 2024 12:00 PM Reporting Lab: [address] [address] Performing Lab: [place] [id number] [facility] [address] [facility] COVID-19 DIAGNOST IC (FLU/RSV [...] Mar 15, 2024 12:00 PM Reporting Lab: [address] [address] Performing Lab: [address] [address] [facility] MAGNESIU M MAGNESIUM [MASS/VOLU ME] IN SERUM OR PLASMA 1.7 mg/dL 1.6 - 2.6 03/15 Specimen Type: PLASMA No comment entered. 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 Vital Sign Value Date Comments Source SYSTOLIC BLOOD PRESSURE 125 09/28/2024 11:47:45 [facility] DIASTOLIC BLOOD PRESSURE 88 09/28/2024 11:47:45 [facility] PULSE OXIMETRY 100 09/28/2024 11:47:45 [facility] WEIGHT 163 09/28/2024 11:47:45 [facility] BMI 23kg/m2 09/28/2024 11:47:45 [facility] PAIN 6 09/28/2024 11:47:45 [facility] HEIGHT 71 09/28/2024 11:47:45 [facility] TEMPERATURE 97.9 09/28/2024 11:47:45 [facility] PULSE 122 09/28/2024 11:47:45 [facility] RESPIRATION 16 09/28/2024 11:47:45 [facility] SYSTOLIC BLOOD PRESSURE 134 05/31/2024 13:28:15 [facility] DIASTOLIC BLOOD PRESSURE 87 05/31/2024 13:28:15 [facility] PULSE OXIMETRY 98 05/31/2024 13:28:15 [facility] WEIGHT 167.9 05/31/2024 13:28:15 [facility] BMI 23kg/m2 05/31/2024 13:28:15 [facility] PAIN 3 05/31/2024 13:28:15 [facility] HEIGHT 71 05/31/2024 13:28:15 [facility] TEMPERATURE 97.4 05/31/2024 13:28:15 [facility] PULSE 97 05/31/2024 13:28:15 [facility] RESPIRATION 18 05/31/2024 13:28:15 [facility] SYSTOLIC BLOOD PRESSURE 128 03/30/2024 11:23:25 [facility] DIASTOLIC BLOOD PRESSURE 88 03/30/2024 11:23:25 [facility] PULSE OXIMETRY 99 03/30/2024 11:23:25 [facility] WEIGHT 172.6 03/30/2024 11:23:25 [facility] BMI 24kg/m2 03/30/2024 11:23:25 [facility] PAIN 6 03/30/2024 11:23:25 [facility] TEMPERATURE 98 03/30/2024 11:23:25 [facility] PULSE 89 03/30/2024 11:23:25 [facility] RESPIRATION 16 03/30/2024 11:23:25 [facility] SYSTOLIC BLOOD PRESSURE 135 03/15/2024 11:56:00 [facility] DIASTOLIC BLOOD PRESSURE 87 03/15/2024 11:56:00 [facility] PAIN 7 03/15/2024 11:56:00 [facility] PULSE 89 03/15/2024 11:56:00 [facility] RESPIRATION 18 03/15/2024 11:56:00 [facility] Encounters Combined list of: 1) Encounters from [facility] of [facility] facilities going back up to thelast 18 months. 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 Location Location Details Encounter Type Encounter Number Reason For Visit Attending Provider ADM Date DC Date Status Disposition Source [place]) OUTPATIENT [id number] ARCHES AND KNEE PAIN/CO LD DACIA MOYA 12/06 Released with Work/Duty Limitations [place]) OUTPATIENT [id number] X-RAY RESULTS DACIA MOYA 12/07 Released with Work/Duty Limitations [place]) OUTPATIENT [id number] back pain/bl ENRIQUE Garcia 01/17 Released with Work/Duty Limitations [place]) Theater Facility OUTPATIENT [id number] 01/02 Released w/o Limitations [facility] OUTPATIENT [id number] 01/31 Released w/o Limitations [facility] OUTPATIENT [id number] 05/17 Released with Work/Duty Limitations [facility] OUTPATIENT [id number] 05/21 Released w/o Limitations Theater [facility] OUTPATIENT [id number] 06/05 Released w/o Limitations Theater [facility] OUTPATIENT [id number] 06/08 Released w/o Limitations Theater Facilit y [facility], [place]) OUTPATIENT [id number] INPROCE [facility] PORTIA ELIZALDE 10/31 Released w/o Limitations [facility], [employer] Exam[facility]ion) [facility] [place]) OUTPATIENT [id number] W/I ROLANDA STRAUSS 11/20 Released w/o Limitations [facility], [employer] [place] ) [facility] [place]) OUTPATIENT [id number] [facility] ISABEL Campbell 05/07 Released w/o Limitations [facility], [employer] [place]) [facility] [place] OUTPATIENT [id number] knee pain CHAI HARRELL 03/14 Released w/o Limitations [facility], [employer]) [facility] [place] OUTPATIENT [id number] L knee pain SHARRI CHAI Nallely 03/21 Released w/o Limitations [facility] [employer]) [facility] [place] Physical Therapy) OUTPATIENT [id number] visit for: adminis trative SOFIE Givens 04/12 Released w/o Limitations [facility], [employer] [place] ) [facility], [place]) OUTPATIENT [id number] infecti on near groin area CHAI HARRELL 04/14 Released w/o Limitations [facility], [place]) [facility], [place] OUTPATIENT [id number] Poss. Cyst A Co CHAI HARRELL 04/17 Released w/o Limitations [facility], [place] [facility], [place] TELE CONSULT [id number] MED FILL CHAI HARRELL 07/14 [facility] [place] [facility] [place] TELE CONSULT [id number] Needs medicat ion change SANCHO DEUTSCH 08/07 [facility], [place] [facility] Out[facility] Encounter [id number] RENETTA WOO 05/29 [facility] OFFICE O/P EST LOW 20-29 MIN [id number] Diagnos is: ICD-10- CM F10.90 Alcohol use, 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, uncompl icated< br/> KODWANI, CHAVEZ 06/05 [facility] HC PRO PHONE CALL 5-10 MIN [id number] Diagnos is: ICD-10- CM 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
Ce MORROW IMROLANDO WAGNER 06/05 [facility] OFFICE O/P EST MOD 30-39 MIN [id number] Diagnos is: ICD-10- CM F43.11 Post-tr aumatic stress disorde r, acute<b r/> ZACHARY PHAN 06/19 [facility] EYE EXAM NEW PATIENT [id number] Diagnos is: ICD-10- CM H53.71 Glare sensiti vity
CHERI SCHROEDER THI 06/19 [facility] HC PRO PHONE CALL 5-10 MIN [id number] Diagnos is: ICD-10- CM Z59.811 Housing instabi lity, housed, with risk of homeles sness<b r/> Ce MORROW IMEE BERNARD 06/19 [facility] EMERGENCY DEPT VISIT LOW MDM [id number] Diagnos is: ICD-10- CM M79.10 Myalgia , 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 site
CHRISTINA TUTTLE ED K 06/30 [facility] Outpatient Encounter [id number] CHRISTINA TUTTLE ED K 06/30 [facility] Outpatient Encounter [id number] DIANNA RAMIREZ 07/11 [facility] EMERGENCY DEPT VISIT MOD MDM [id number] [id number] Diagnos is: ICD-10- CM E87.6 Hypokal emia
GARFIELD RODRIGUEZ 07/13 [facility] Outpatient Encounter [id number] 07/13 [facility] Outpatient Encounter [id number] GARFIELD RODRIGUEZ Bonifacio 07/13 [facility] Outpatient Encounter [id number] [place] Candice 07/28 [facility] OFFICE O/P EST LOW 20-29 MIN [id number] Diagnos is: ICD-10- CM R52 Pain, 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
SHAHEEN NGO CHAVEZ 08/04 [facility] Outpatient Encounter [id number] 08/12 [facility] Outpatient Encounter [id number] Bonifacio QUEZADA 09/23 [facility] EMERGENCY DEPT VISIT LOW MDM [id number] [id number] Diagnos is: ICD-10- CM E87.6 Hypokal emia
LINO ZAMORA 03/15 [facility] Outpatient Encounter [id number] 03/15 [facility] Outpatient Encounter [id number] LINO ZAMORA 03/15 [facility] Outpatient Encounter [id number] 03/17 [facility] OFFICE O/P EST MOD 30 MIN [id number] Diagnos is: ICD-10- CM R52 Pain, 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
KODWATANESHA, CHAVEZ 03/30 [facility] NRV CNDJ TEST 9-10 STUDIES [id number] Diagnos is: ICD-10- CM G56.03 Carpal tunnel syndrom e, bilater al upper limbs<b r/> LESLIE,INDONESIAN 04/19 [facility] Outpatient Encounter [id number] 04/19 [facility] Outpatient Encounter [id number] Bonifacio QUEZADA 04/20 [facility] PSYTX W PT 45 MINUTES [id number] [id number] Diagnos is: ICD-10- CM F43.11 Post-tr aumatic stress disorde r, acute<b r/> ZACHARY PHAN 04/27 [facility] Outpatient Encounter [id number] 04/27 [facility] OFFICE O/P EST MOD 30 MIN [id number] [id number] Diagnos is: ICD-10- CM R52 Pain, 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
KODWATANESHA, CHAVEZ 04/28 [facility] Outpatient Encounter [id number] 04/28 [facility] Outpatient Encounter [id number] 04/28 [facility] Outpatient Encounter [id number] [id number] Diagnos is: ICD-10- CM R52 Pain, 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
SHAHEEN NGO CHAVEZ 05/14 [facility] OFF/OP CNSLTJ NEW/EST LOW 30 [id number] [id number] Diagnos is: ICD-10- CM G56.03 Carpal tunnel syndrom e, bilater al upper limbs<b r/> ELINOR ROSE A 05/31 [facility] OT EVAL MOD COMPLEX 45 MIN [id number] Diagnos is: ICD-10- CM G56.03 Carpal tunnel syndrom e, bilater al upper limbs<b r/> TOÑO HERNANDEZ K 05/31 [facility] Outpatient Encounter [id number] 07/03 [facility] OFFICE O/P EST HI 40 MIN [id number] Diagnos is: ICD-10- CM Z72.0 Tobacco use<br/ > MARIANO OSULLIVAN A 07/05 [facility] Outpatient Encounter [id number] 07/05 [facility] PRO PHONE CALL 11-20 MIN [id number] Diagnos is: ICD-10- CM F10.90 Alcohol use, 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, uncompl icated< br/> SHANKAR OWEN 07/06 [facility] Outpatient Encounter [id number] SHANKAR OWEN 07/06 [facility] ALCOHOL AND/OR DRUG ASSESS [id number] Diagnos is: ICD-10- CM F10.90 Alcohol use, 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, uncompl icated< br/> ANTHONY MITTAL JORGE 07/13 [facility] OFF/OP EST MAY X REQ PHY/QHP [id number] [id number] Diagnos is: ICD-10- CM G56.03 Carpal tunnel syndrom e, bilater al upper limbs<b r/> KWADWO ROSS R 08/03 [facility] Outpatient Encounter [id number] LAURA CANDELARIA A 08/05 [facility] OFFICE O/P EST MOD 30 MIN [id number] Diagnos is: ICD-10- CM F32.89 Other specifi ed depress migdalia episode s
HENNA GarciaMARIANO A 08/06 [facility] OFFICE O/P EST MOD 30 MIN [id number] Diagnos is: ICD-10- CM R03.0 Elevate d blood-p ressure reading , w/o diagnos is of htn<br/ > KODWANI, CHAVEZ 08/18 [facility] Outpatient Encounter [id number] 08/18 [facility] OFFICE O/P EST MOD 30 MIN [id number] Diagnos is: ICD-10- CM F32.89 Other specifi ed depress migdalia episode s
MARIANO OSULLIVAN Ce 09/06 [facility] OFF/OP CNSLTJ NEW/EST LOW 30 [id number] Diagnos is: ICD-10- CM G56.03 Carpal tunnel syndrom e, bilater al upper limbs<b r/> USZANNEIVKTORIYA BROUSSARD ESH 09/28 [facility] Outpatient Encounter [id number] 09/28 [facility] Outpatient Encounter [id number] Diagnos is: ICD-10- CM Z01.810 Encount er for preproc edural cardiov ascular examina tion
ROSEHEA THER 10/03 [facility] Outpatient Encounter [id number] Diagnos is: ICD-10- CM Z04.89 Encount er for examina tion and observa tion for oth reasons
Candice BRAGA 10/09 [facility] HC PRO PHONE CALL 5-10 MIN [id number] [id number] Diagnos is: ICD-10- CM G56.01 Carpal tunnel syndrom e, right upper limb
NIKUNJ RODRIGUEZ 10/22 [facility] Outpatient Encounter [id number] 10/29 [facility] Outpatient Encounter [id number] SHAHEEN NGO 11/07 [facility] Procedures Combined list of: 1) Procedures from Department of Veterans Affairs facilities going back up to thelast 18 months, not all VA non-surgical procedures are included; 2) All procedures from the Department of Defense facilities. Procedure Procedure Type Code Date Perfomer Comments [place] Psychotherapy Individual Approximately 30 Minutes Psychotherapy Individual Approximately 30 Minutes [id number] 09/11/2009 CHAPIS RODRIGUEZ [facility] Clinical Social Work Individual Outpatient Counseling 45 Minutes Clinical Social Work Individual Outpatient Counseling 45 Minutes 64625 08/21/2009 SIOMARA CASTRO [facility] Clinical Social Work Individual Outpatient Counseling 45 Minutes Clinical Social Work Individual Outpatient Counseling 45 Minutes 53640 07/14/2009 SIOMARA CASTRO [facility] Clinical Social Work Individual Outpatient Counseling 30 Minutes Clinical Social Work Individual Outpatient Counseling 30 Minutes [id number] 06/29/2009 ANDREW MORALES [facility] Physician Supervised Injection Intramuscular Antibiotic Physician Supervised Injection Intramuscular Antibiotic 28961 04/14/2009 MOO BAILON [facility] Phys Therapy Education Self Care Training - Per 15 Minutes Phys Therapy Education Self Care Training - Per 15 Minutes 77503 04/12/2009 SOFIE POSEY [facility] Physical Therapy Service Evaluation Physical Therapy Service Evaluation 33530 04/12/2009 SOFIE POSEY [facility] Screening Test Of Visual Acuity, Quantitative, Bilateral Screening Test Of Visual Acuity, Quantitative, Bilateral 49681 05/07/2007 ISABEL RUBALCAVA [facility] Psychiatric Therapy Preparation of Psychiatric Status Report Psychiatric Therapy Preparation of Psychiatric Status Report [id number] 04/16/2007 RAQUEL GANNON [facility] Psychiatric Diagnostic Evaluation Comprehensive Examination Psychiatric Diagnostic Evaluation Comprehensive Examination [id number] 04/16/2007 RAQUEL GANNON [facility] Psychologic Testing And Report Administered By Physician Psychologic Testing And Report Administered By Physician [id number] 04/15/2007 RAQUEL GANNON [facility] Audiometry Group Testing Audiometry Group Testing 12450 11/20/2006 ROLANDA STRAUSS Threshold Audiogram (Pure Tone) Threshold Audiogram (Pure Tone) 07968 11/20/2006 ROLANDA STRAUSS Physician Supervised Group Educational Services 11/20/2006 ROLANDA STRAUSS Special Physician Services Analysis Of Computerized Data Special Physician Services Analysis Of Computerized Data [id number] 11/20/2006 ROLANDA STRAUSS HEPATITIS A AND HEPATITIS B VACCINE (HEPA-HEPB), ADULT DOSAGE, FOR INTRAMUSCULAR USE 12/27/2004 [facility] INFLUENZA VIRUS VACCINE, TRIVALENT, LIVE (LAIV3), FOR INTRANASAL USE 10/09/2004 [facility] PHYS/OTH QUALIFIED HEALTH SALON/SPA MANAGER QUALIFIED,EDUCATION, TRAIN,LICENSURE/REGU LATION (WHEN APPLICABLE) EDUC SER RENDERED TO PATS IN A GRP SETTING (EG,,OBESITY ,OR DIABETIC INSTRUCT) 10/04/2004 [facility] SCREENING TEST OF VISUAL ACUITY, QUANTITATIVE, BILATERAL 07/29/2006 [facility] HEPATITIS B VACCINE (HEPB), ADULT DOSAGE, 3 DOSE SCHEDULE, FOR INTRAMUSCULAR USE 10/16/2005 [facility] INFLUENZA VIRUS VACCINE, TRIVALENT (IIV3), SPLIT VIRUS, 0.5 ML DOSAGE, FOR INTRAMUSCULAR USE 09/26/2005 [facility] INDIVIDUAL PSYCHOTHERAPY, INSIGHT ORIENTED, BEHAVIOR MODIFYING AND/OR SUPPORTIVE, IN AN OFFICE OR OUTPATIENT FACILITY, APPROXIMATELY 20 TO 30 MINUTES [id number] WITH THE PATIENT 09/11/2009 [facility] INDIVIDUAL PSYCHOTHERAPY, INSIGHT ORIENTED, BEHAVIOR MODIFYING AND/OR SUPPORTIVE, IN AN OFFICE OR OUTPATIENT FACILITY, APPROXIMATELY 45 TO 50 MINUTES [id number] WITH THE PATIENT 08/21/2009 [facility] INFLUENZA VIRUS VACCINE, TRIVALENT, LIVE (LAIV3), FOR INTRANASAL USE 08/01/2009 [facility] INDIVIDUAL PSYCHOTHERAPY, INSIGHT ORIENTED, BEHAVIOR MODIFYING AND/OR SUPPORTIVE, IN AN OFFICE OR OUTPATIENT FACILITY, APPROXIMATELY 45 TO 50 MINUTES [id number] WITH THE PATIENT 07/14/2009 [facility] INDIVIDUAL PSYCHOTHERAPY, INSIGHT ORIENTED, BEHAVIOR MODIFYING AND/OR SUPPORTIVE, IN AN OFFICE OR OUTPATIENT FACILITY, APPROXIMATELY 20 TO 30 MINUTES [id number] WITH THE PATIENT 06/29/2009 [facility] THERAPEUTIC, PROPHYLACTIC, OR DIAGNOSTIC INJECTION (SPECIFY SUBSTANCE OR DRUG); SUBCUTANEOUS OR INTRAMUSCULAR 04/14/2009 [facility] SELF-CARE/HOME MANAGMENT TRAIN (EG,ACT OF DAILY LIVING (ADL) &COMPENSAT TRAIN,MEAL PREPARATION,SAFETY PROCS,AND INSTRUCT IN USE OF ASST TECHNOLOGY DEV/ADPT EQUIP) DIR ONE-ON-ONE CONT,EA 15 MINUTES 04/12/2009 [facility] INFLUENZA VIRUS VACCINE, TRIVALENT, LIVE (LAIV3), FOR INTRANASAL USE 09/09/2007 [facility] TYPHOID VACCINE, ACETONE-KILLED, DRIED (AKD), FOR SUBCUTANEOUS USE (U.S. ) 07/21/2007 [facility] ANALYSIS OF CLINICAL DATA STORED IN COMPUTERS (EG, ECGS, BLOOD PRESSURES, HEMATOLOGIC DATA) 07/07/2007 [facility] SCREENING TEST OF VISUAL ACUITY, QUANTITATIVE, BILATERAL 05/07/2007 [facility] PREPARATION OF REPORT OF PATIENT'S PSYCHIATRIC STATUS, HISTORY, TREATMENT, OR PROGRESS (OTHER THAN FOR LEGAL OR CONSULTATIVE PURPOSES) FOR OTHER INDIVIDUALS, AGENCIES, OR INSURANCE CARRIERS 04/16/2007 [facility] PSYCHOLOG TESTING (ASSESS EMOTION,INTELLECT ABILITIES,PERSONALIT Y & PSYCHOPATH,EG,MMPI,R ORSCHACH,[place])/HR PSYCHOLOGIST/PHYS TIME,BOTH [id number] ADMIN TEST TO PAT & INTERP TEST RESULT & PREP RPT 04/15/2007 [facility] HEPATITIS A AND HEPATITIS B VACCINE (HEPA-HEPB), ADULT DOSAGE, FOR INTRAMUSCULAR USE 04/07/2007 [facility] ANALYSIS OF CLINICAL DATA STORED IN COMPUTERS (EG, ECGS, BLOOD PRESSURES, HEMATOLOGIC DATA) 11/20/2006 [facility] Social History Combined list of available smoking, tobacco, and other social history from Department of Defense and Veterans Affairs facilities. Social History Type Response Date Comment [facility] e Tobacco smoking status NHIS VA-TOBACCO FORMER USER 08/05/2024 [facility] History of tobacco use VA-TOBACCO QUIT 5 TO < 15 YRS 08/05/2024 [facility] History of tobacco use VA-TOBACCO USER SOME DAYS 06/05/2023 [facility] History of tobacco use ORYX ADMIT TOBACCO SCREEN YES 05/07/2023 [facility] History of tobacco use VA-TOBACCO FORMER USER 04/16/2022 [facility] History of tobacco use VA-TOBACCO USER EVERY DAY 11/14/2020 [facility] History of tobacco use VA-TOBACCO FORMER USER 02/08/2019 [facility] History of tobacco use TOBACCO USER OFFERED MEDS 10/17/2017 [facility] History of tobacco use CURRENT TOBACCO USER 07/02/2017 [facility]ron Ambroc[facility] History of tobacco use QUIT TOBACCO >12 MO and <7 YRS AGO 02/19/2016 [facility] History of tobacco use CURRENT TOBACCO USER 04/14/2015 [facility] History of tobacco use CURRENT TOBACCO USER 08/25/2014 [facility] History of tobacco use QUIT TOBACCO >7 YEARS AGO 10/27/2013 [facility] History of tobacco use CURRENT TOBACCO USER 01/07/[address] [facility] History of tobacco use QUIT TOBACCO IN THE LAST 12 MONTHS 09/18/2011 [facility] History of tobacco use CURRENT TOBACCO USER 07/25/[address] [facility] History of tobacco use QUIT TOBACCO IN THE LAST 12 MONTHS 07/20/2010 [facility] This section is an empty social history section. [facility] Plan of Care List of future care activities from [facility] facilities. Additional future care activities may be listed in the Assessment and Plan section. Date/Time Care Activity Care Activity Detail Facili ty 11/18/2024 AMBULATORY - MEDICINE AMBULATORY - MEDICI [facility] 11/23/2024 AMBULATORY - PSYCHIATRY AMBULATORY - PSYC HIATRY [facility] 11/30/2024 AMBULATORY - SURGERY AMBULATORY - SURGERY [facility] 02/17/2025 AMBULATORY - MEDICINE AMBULATORY - MEDICI [facility] 10/03/2024 Laboratory - Eyeglass Cutter ry Order CBC BLOOD SP [facility] 10/03/2024 Laboratory - Eyeglass Cutter ry Order BASIC METABOLIC PANEL GREEN LI/HEP BLD/PLAS PLASMA SP [facility] Advance Directives List of completed, amended, or rescinded Advance Directives on record at [facility] facilities. An actual copy of the Directive is not included. Date Advance Directive Provider Source 05/07/2023 ADVANCE DIRECTIVE DARLEEN ENRIQUEZ [facility]
--- OUTSIDE RECORDS SUMMARY | 2024-11-14 06:03 | XMS_ITS | Referral Summary ---
Author Organization [facility] [employer] Address [address] [place] [address] Care Team Providers Care Sanitation Worker Cleaning Machinery Name Role Phone Unavailable Primary Care Provider Unavailabl e Source Comments [facility] [employer],non-owned Affiliates and Associated Physician Practices is amultiple site organization consisting of ambulatory clinics and hospital sitesin [place], [place], [place] and [place]. This disclosure is being madepursuant to the Care Everywhere program and may not contain all information available regarding this patient. Last updated 18.[employer] Allergies No known active allergies Medications * [...] Comments Blood Pressure 118/78 12/04/2018 12:30 PM EXPERIMENTAL BOX TESTER Pulse 88 12/04/2018 12:30 PM EXPERIMENTAL BOX TESTER Temperature 37.1 ??C (98.8 ??F) 12/04/2018 12:[address] Respiratory Rate 16 12/04/2018 12:30 PM EXPERIMENTAL BOX TESTER Oxygen Saturation 99% 12/04/2018 12:30 PM EXPERIMENTAL BOX TESTER Inhaled Oxygen Concentration - - Weight 86.2 kg (190 lb) 12/04/2018 12:30 PM EXPERIMENTAL BOX TESTER Height 180.3 cm (5' 11 ) 12/04/2018 12:30 PM EXPERIMENTAL BOX TESTER Body Mass Index 26.5 12/04/2018 12:30 PM EXPERIMENTAL BOX TESTER Plan of Treatment Not on file
--- OUTSIDE RECORDS SUMMARY | 2024-11-14 06:03 | XMS_ITS | Clinical Summary ---
Author Organization [facility] [employer] Address [address] [place] [address] Care Team Providers Care Bowling Ball Patcher Name Role Phone Unavailable Primary Care Provider Unavailabl e Source Comments [facility] [employer],non-owned Affiliates and Associated Physician Practices is amultiple site organization consisting of ambulatory clinics and hospital sitesin [place], [place], [place] and [place]. This disclosure is being madepursuant to the Care Everywhere program and may not contain all information available regarding this patient. Last updated 18.[employer] Allergies No known active allergies Medications * [...] Comments Blood Pressure 118/78 12/04/2018 12:30 PM DEVELOPMENT TECHNICIAN Pulse 88 12/04/2018 12:30 PM DEVELOPMENT TECHNICIAN Temperature 37.1 ??C (98.8 ??F) 12/04/2018 12:[address] Respiratory Rate 16 12/04/2018 12:30 PM DEVELOPMENT TECHNICIAN Oxygen Saturation 99% 12/04/2018 12:30 PM DEVELOPMENT TECHNICIAN Inhaled Oxygen Concentration - - Weight 86.2 kg (190 lb) 12/04/2018 12:30 PM DEVELOPMENT TECHNICIAN Height 180.3 cm (5' 11 ) 12/04/2018 12:30 PM DEVELOPMENT TECHNICIAN Body Mass Index 26.5 12/04/2018 12:30 PM DEVELOPMENT TECHNICIAN Plan of Treatment Health Maintenance Due Date [...]
--- OUTSIDE RECORDS SUMMARY | 2024-11-14 06:03 | XMS_ITS | Patient Health Summary ---
Author Organization [facility] [employer] Address [address] [place] [address] Care Team Providers Care Senior Mobile Application Developer Name Role Phone Unavailable Primary Care Provider Unavailabl e Note from [facility] [employer] [facility],non-owned Affiliates and Associated Physician Practices is amultiple site organization consisting of ambulatory clinics and hospital sitesin [place], [place], [place] and [place]. This disclosure is being madepursuant to the Care Everywhere program and may not contain all information available regarding this patient. Last updated 18.[facility] [employer] Allergies No known active allergies Medications * [...] Comments Blood Pressure 118/78 12/04/2018 12:30 PM TEMPERATURE CONTROL INSPECTOR Pulse 88 12/04/2018 12:30 PM TEMPERATURE CONTROL INSPECTOR Temperature 37.1 ??C (98.8 ??F) 12/04/2018 12:[address] Respiratory Rate 16 12/04/2018 12:30 PM TEMPERATURE CONTROL INSPECTOR Oxygen Saturation 99% 12/04/2018 12:30 PM TEMPERATURE CONTROL INSPECTOR Inhaled Oxygen Concentration - - Weight 86.2 kg (190 lb) 12/04/2018 12:30 PM TEMPERATURE CONTROL INSPECTOR Height 180.3 cm (5' 11 ) 12/04/2018 12:30 PM TEMPERATURE CONTROL INSPECTOR Body Mass Index 26.5 12/04/2018 12:30 PM TEMPERATURE CONTROL INSPECTOR
--- OUTSIDE RECORDS SUMMARY | 2024-11-14 06:03 | XMS_ITS | Encounter Summary ---
Author Organization [facility] Address [address] [place] [address] Care Team Providers Care Salvage Mechanic Name Role Phone Unavailable Primary Care Provider Unavailabl e Reason for Visit * Reason Comments Sinusitis COUGH Encounter Details Date Type Department Care Team (Late st Contact Info) Description 12/04/2018 12:20 PM PRODUCTION SUPERINTENDENT Office Visit [facility] AT [address] [phone] Provider, [facility] Acute maxillary sinusitis, recurrence not specified [...] Comments Blood Pressure 118/78 12/04/2018 12:30 PM PRODUCTION SUPERINTENDENT Pulse 88 12/04/2018 12:30 PM PRODUCTION SUPERINTENDENT Temperature 37.1 ??C (98.8 ??F) 12/04/2018 12:[address] Respiratory Rate 16 12/04/2018 12:30 PM PRODUCTION SUPERINTENDENT Oxygen Saturation 99% 12/04/2018 12:30 PM PRODUCTION SUPERINTENDENT Inhaled Oxygen Concentration - - Weight 86.2 kg (190 lb) 12/04/2018 12:30 PM PRODUCTION SUPERINTENDENT Height 180.3 cm (5' 11 ) 12/04/2018 12:30 PM PRODUCTION SUPERINTENDENT Body Mass Index 26.5 12/04/2018 12:30 PM PRODUCTION SUPERINTENDENT documented in this encounter Patient Instructions * Patient Instructions* Lizette Logan APRN-CNP - 12/04/2018 12:46 PM PRODUCTION SUPERINTENDENT Images from the original note were not included. Sinusitis TARGET SETTER: Sinusitis is inflammation or infection of your [...] ask them during your visits. ?? Copyright [employer] 2017 Information is for End User's use only and may not be sold, redistributed or otherwise used for commercial purposes. All illustrations and images included in CareNotes?? are the copyrighted property of [employer]. or [employer] The above information is an residential aide only. It is not intended as medical advice for individual conditions or treatments. Talk to your doctor, nurse or pharmacist before following any medical regimen to see if it is safe and effective for you. UCTION SUPERINTENDENT documented in this encounter Progress Notes * [...] previous visit (from the past 24 hour(s)). UCTION SUPERINTENDENT documented in this encounter Plan of Treatment Not on file documented as of this encounter Visit Diagnoses Diagnosis Acute maxillary sinusitis, recurrence not specified- Primary documented in this encounter
--- OUTSIDE RECORDS SUMMARY | 2024-11-14 06:03 | XMS_ITS | Encounter Summary ---
Author Organization [facility] Address [address] [place] [address] Care Team Providers Care Lacquerer Name Role Phone Unavailable Primary Care Provider Unavailabl e Reason for Visit * Reason Onset Date Comments Follow-up 12/06/2018 Encounter Details Date Type Department Care Team (Late st Contact Info) Description 12/06/[address] [facility] AT [address] [phone] Amanuel Kimball, WASTE MACHINE OPERATOR-MASTER BARBER [address] [place] [phone] Follow-up Social History Tobacco Use Types [...]
== END 2024-11-07 09:58 | disposition home or self-care (01) ==
PROVIDERS: Emergency Provider Emergency Medicine
DX: M54.42 Lumbago with sciatica, left side (principal); G89.29 Other chronic pain; F17.210 Nicotine dependence, cigarettes, uncomplicated
CPT/HCPCS: 72131; 96361; 96374; 96375; 99284; A9270; J1885; J3360; J7030

== ENCOUNTER 2025-06-13 11:44 | Emergency (ER) | payer OTHER, SELFPAY ==
--- NOTE | ~2025-06-13 | XR_ITS ---
HISTORY: L hand surgery, concern for infection COMPARISON: None TECHNIQUE: 3 views of the left hand were performed. FINDINGS: No acute fracture is identified. 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 The remaining joint spaces are otherwise preserved. The carpal arcs are intact. Mild radiocarpal joint space narrowing with sclerosis of the distal radius is present. Bone mineralization is age-appropriate No significant soft tissue swelling. No radiopaque foreign body is identified. 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 Reviewed, dictated and finalized at location A. IMPRESSION: Degenerative disease, without acute fracture or dislocation within the left brenner d, as detailed above.
--- OUTSIDE RECORDS SUMMARY | 2025-06-13 11:56 | XMS_ITS | Encounter Summary ---
Author Name [facility] of Veter[facility] Affairs ([place]) Organization [facility] Address [address] [place] [address] Care Team Providers Care Retail Asset Protection Specialist Name Role Phone JOSUE NGO Primary [...] Name Patient's Relationship to Policy Cano [facility] Jose NEGRETE ITY Nov 17, 2018 [id number] [phone] Jose TABARES PATIENT [facility] RX PRESCRIPT ION UHEAL TH Nov 17, 2018 [facility] [id number] [phone] Jose TABARES PATIENT [facility] MENTAL HEALTH [facility] Jose NEGRETE ITY Nov 17, 2018 [id number] [phone] Jose TABARES PATIENT [facility] PREFERRED PROVIDER ORGANIZAT ION (PPO) JOSE NEGRETE ITY Nov 17, 2018 [id number] [phone] Jose TABARES PATIENT Selected Encounter This section includes the information on record at MD for the Encounter. Date/Time Encounter Type Encounter Description Reason Provider Source May 24, 2025 10:40 AM POSTOP FOLLOW-UP VISIT PLASTIC SURGERY ICD-10-CM G56.00 Carpal tunnel syndrome, unspecified upper limb ALE BALTAZAR Encounter Template Text not used by MD Assessments - Encounter Diagnoses This section includes the primary and secondary diagnoses documented for the Encounter. Date/Time Primary/Secondary Diagnosis Diagnosis Name Provider Source May 24, 2025 03:50 PM PRIMARY Carpal tunnel syndrome, unspecified upper limb MILLY CORDOVA [facility] Plan of Treatment: Future Appointments (+ 6 months) and Future Tests (+/- 45 days) The Plan of Treatment section includes future care activities for the patient [facility] This section includes future appointments and future orders which are active, pending or scheduled. Future Appointments This section includes appointments that were scheduled to occur 6 months from the date of the Encounter, up to a maximum of 20 appointments. The data comes from all [facility]. Appointment Date/Time Appointment Type Appointme nt Facility Name Jun 08, 2025 10:40 AM AMBULATORY - SURGERY [facility] Jun 15, 2025 10:15 AM AMBULATORY - MEDICINE [facility] Jun 21, 2025 02:30 PM AMBULATORY - PSYCHIATRY [facility] Aug 17, 2025 02:00 PM AMBULATORY - MEDICINE [facility] Active, Pending, and Scheduled Orders [...] Date/Time Test Type Test Details Facility Name Jun 15, 2025 12:00 AM Laboratory - Chemi stry Order RENAL PANEL GREEN LI/HEP BLD/PLAS PLASMA [facility] Jun 15, 2025 12:00 AM Laboratory - Chemi stry Order MAGNESIUM GREEN LI/HEP BLD/PLAS PLASMA [facility] Lab Results: +/- [...] Type Result - Unit Interpretation Reference Range Specimen Type Comment May 10, 2025 11:02 AM [facility] BASIC METABOLIC PANEL PLASMA Specimen Type: PLASMA Comment: No hemolysis noted. Ordering Provider: ALE BALTAZAR Report Released Date/Time: May 09, 2025 12:21 PM Reporting Lab: [address] [address] Performing Lab: [address] [address] CREATININE 0.66 mg/dL L 0.7-1.3 UREA NITROGEN 4.1 mg/dL L 9.0-25.0 GLUCOSE 59 mg/dL L 72-99 SODIUM 139 meq/L 136-145 POTASSIUM 3.4 meq/L L 3.5-5 CHLORIDE 104 meq/L 98-107 CARBON DIOXIDE 28 meq/L 22-31 CALCIUM 9.1 mg/dL 8.4-10.4 EGFR (CKD-EPI 2020) 119.4 >60 May 10, 2025 11:02 AM [facility] CBC BLOOD Specimen Type: BLOOD No comment entered. Ordering Provider: ALE BALTAZAR Report Released Date/Time: May 09, 2025 12:21 PM Reporting Lab: [address] [address] Performing Lab: [address] [address] WBC 7.1 10*3/uL 3.6-11.2 RBC 3.92 10*6/uL L 4.10-5.70 HGB 12.7 g/dL L 13.1-16.8 HCT 38.1 L 38.2-48.4 MCV 97.2 fL 80.0-100.0 MCH 32.4 pg 27.0-34.0 MCHC 33.3 g/dL 33.0-36.0 PLT 429 10*3/uL H 150-400 MPV 8.1 fL 7.5-11.2 RDW 11.8 11.8-15.1 LYMPHOCYTES, AUTO % 31 MONOCYTES, AUTO % 12 NEUTROPHILS, AUTO % 51 EOSINOPHILS, AUTO % 4 BASOPHILS, AUTO % 2 LYMPHOCYTES, ABSOLUTE 2.19 10*3/uL 0.77- 4.50 MONOCYTES, ABSOLUTE 0.85 10*3/uL H 0.19-0. 80 NEUTROPHILS, ABSOLUTE 3.58 10*3/uL 2.10- 8.00 EOSINOPHILS, ABSOLUTE 0.27 10*3/uL 0.00- 0.60 BASOPHILS, ABSOLUTE 0.12 10*3/uL 0.00-0. 20 Vital Signs: All taken on the encounter date This section contains inpatient and outpatient Vital Signs collected on the date of the Encounter. Date/Time Temperature Pulse Blood Pressure Respiratory Rate SP02 Pain Height Weight Body Mass Index Source May 24, 2025 10:47 AM 97.6 F 107 /min 129/88 mm[Hg] 16 /min 100 % 1 149.8 lb 21 [facility] Social History: Smoking Status [...] place. Date/Time Current Smoking Status Comment Devorah su Aug 05, 2024 11:55 AM VA-TOBACCO FORMER USER [facility] Tobacco Use History This section includes a history of the smoking, or tobacco-related health factors, that were collected on or before the date of the Encounter. The data comes from the [place] facility where the Encounter took place. 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 [facility] May 07, 2023 06:21 AM ORYX DAILY TOBACCO MEDS REFUSED [facility] Oct 27, 2013 02:51 PM QUIT TOBACCO >7 YEARS AGO [facility] Jan 07, 2013 10:01 AM CURRENT TOBACCO USER [facility] Jan 07, 2013 10:01 AM TOBACCO MEDS OFFER ED BUT DECLINED [facility] Sep 18, 2011 12:08 PM QUIT TOBACCO IN TH E LAST 12 MONTHS [facility] Jul 25, 2011 03:33 PM CURRENT TOBACCO USER [facility] Jul 20, 2010 10:35 AM QUIT TOBACCO IN TH E LAST 12 MONTHS [facility] Advance Directives: All historical and current Section [...] ADVANCE DIRECTIVE DARLEEN ENRIQUEZ [facility] Encounter Notes: All associated encounter notes This section contains the clinical notes associated to the Encounter. Date/Time Encounter Note(s) Provider Source May 24, 2025 03:49 PM PLASTIC SURGERY NO TE: LOCAL TITLE: PLASTIC SURGERY NOTE STANDARD TITLE: PLASTIC SURGERY NOTE DATE OF NOTE: MAY 24, 2025@15:49 ENTRY DATE: MAY 23, 2025@18:46:54 AUTHOR: MILLY CORDOVA COSIGNER: ALE BALTAZAR URGENCY: STATUS: COMPLETED Plastic Surgery Progress Note MAY 24, 2025 Treatment History: 05/19/25: left carpal tunnel release (Lynne) HPI: 44 YEAR OLD MALE who presents for follow up s/p left carpal tunnel release on 05/19. He reports he is doing well. He has not had any episodes of numbness or tingling since surgery. He denies any fevers, chills, redness, drainage or any other complaints. ROS: NEGATIVE EXCEPT PER HPI ALLERGIES: Patient has answered NKA ACTIVE OUTPATIENT MEDS: Active Outpatient Medications (including Supplies): Active Outpatient Medications Status 1) ACETAMINOPHEN 500MG TAB TAKE ONE TABLET BY MOUTH EVERY 4 ACTIVE HOURS NEEDED CAUTION: DO NOT EXCEED 4000MG PER DAY ACETAMINOPHEN (APAP) FROM ALL MEDS. Indication: FOR PAIN 2) DICLOFENAC NA 1% TOP GEL APPLY 4 GM TO AFFECTED AREA(S) FOUR ACTIVE TIMES A DAY NEEDED NO MORE THAN 16 GM/DAY TO ANY LOWER EXTREMITY JOINT. NO MORE THAN 8 GM/DAY TO ANY UPPER EXTREMITY JOINT. MAX 32GM/DAY OVER ALL JOINTS.(MEASURE DOSE WITH RULER INSIDE BOX) Indication: FOR PAIN 3) HYDROXYZINE HCL 25MG TAB TAKE ONE TABLET BY MOUTH THREE ACTIVE TIMES A DAY NEEDED *MAY CAUSE DROWSINESS* Indication: FOR ANXIETY 4) LIDOCAINE 5% PATCH APPLY 1 PATCH TO SKIN SITE ONCE A DAY ACTIVE NEEDED APPLY PATCH AND PRESS FIRMLY FOR 10-15 SECONDS. KEEP ON FOR 12 HOURS THEN REMOVE PATCH FOR 12 HOURS. Indication: PAIN 5) MIRTAZAPINE 15MG DISINTEGRATING TAB TAKE ONE TABLET BY MOUTH ACTIVE ONCE A DAY Indication: FOR PTSD 6) OMEPRAZOLE 40MG EC CAP TAKE ONE CAPSULE BY MOUTH TWICE DAILY ACTIVE NEEDED TAKE 30 MINUTES PRIOR TO FOOD. Indication: FOR GASTROESOPHAGEAL REFLUX DISEASE 7) OXYCODONE HCL 5MG TAB TAKE ONE TABLET BY MOUTH EVERY 6 HOURS ACTIVE NEEDED MAY CAUSE CONSTIPATION Indication: FOR POST-OPERATIVE PAIN 8) POTASSIUM CL 20MEQ SA TAB (DISPERSIBLE) TAKE ONE TABLET BY ACTIVE MOUTH ONCE A DAY FOR 1 DAY, THEN TAKE ONE-HALF TABLET ONCE A DAY FOR 6 DAYS TAKE WITH FOOD Indication: FOR POTASSIUM SUPPLEMENTATION O: Temp: 97.6 F [36.4 C] (05/19/2025 13:55) Pulse Ox: Measurement DT POx (L/MIN)(%) 05/19/2025 13:55 100 05/19/2025 11:55 100 01/24/2025 16:51 98 01/24/2025 14:00 99 PULSE: 75 (05/19/2025 13:55) RESPIRATION: 16 (05/19/2025 13:55) BLOOD PRESSURE: 130/97 (05/19/2025 13:55) Life Sustaining Treatment Orders PHYSICAL EXAM: NEURO: AOx4 LUNGS: no increased work of breathing HEART: Regular rate and rhythm ABDOMEN: soft, nontender, nondistended EXT: warm and well perfused. LUE: incision clean, dry and intact with sutures in place. No surrounding erythema, no dehiscence, no expressible drainage. ASSESSMENT/PLAN: 44 YEAR OLD MALE who presents for follow up s/p the above surgery. He is doing well and compliant with elevation and activity restrictions. Discussed continuing activity restrictions for 4-6 weeks. Wound care with vaseline daily. He is okay to wash his hands regularly. Will see him back in 2 weeks for suture removal. /loyda/ MILLY CORDOVA [facility] [employer] PGY 2; RESIDENT PHYSICIAN,SURGERY Signed: 05/24/2025 15:50 /loyda/ ALE BALTAZAR MD Staff Physician, Plastic Surgery Cosigned: 2025 07:[address] [facility]
--- OUTSIDE RECORDS SUMMARY | 2025-06-13 11:56 | XMS_ITS | Encounter Summary ---
Author Name Department of [place] ([place] Organization [facility] Address [address] [place] [address] Care Team Providers Care Drum Tender Name Role Phone JOSUE NGO Primary Care [...] Policy Cano [facility] Jose NEGRETE ITY Nov 17, 2018 [id number] Jose CURRY PATIENT [facility] RX PRESCRIPT ION UHEAL TH Nov 17, 2018 [facility] [id number] [phone] Jose CURRY PATIENT [facility] M[facility]AL HEALTH [facility] Jose NEGRETE ITY Nov 17, 2018 [id number] [phone] Jose CURRY PATIENT [facility] PREFERRED PROVIDER ORGANIZAT ION (PPO) JOSE MONDRAGONUR ITY Nov 17, 2018 [id number] [phone] Jose CURRY PATIENT Selected Encounter This section includes the information on record at [place] for the Encounter. Date/Time Encounter Type Encounter Description Reason Provider Source Sep 06, 2024 02:30 PM OFFICE O/P EST MOD 30 MIN [facility] - IND ICD-10-CM F32.89 Other specified depressive episodes TERRA QUIÑONES [facility] Encounter Template Text not used by [place] Assessments - Encounter Diagnoses This section includes the primary and secondary diagnoses documented for the Encounter. Date/Time Primary/Secondary Diagnosis Diagnosis Name Provider Source Sep 06, 2024 02:49 PM PRIMARY Other specified depressive episodes TERRA QUIÑONES 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 Plan of Treatment: Future Appointments (+ 6 months) and Future Tests (+/- 45 days) The Plan of Treatment section includes future care activities for the patient from all [place] [facility]. This section includes future appointments and future orders which are active, pending or scheduled. Future Appointments This section includes appointments that were scheduled to occur 6 months from the date of the Encounter, up to a maximum of 20 appointments. The data comes from all [place] treatment facilities. Appointment Date/Time Appointment Type Appointme nt Facility Name Sep 28, 2024 11:40 AM AMBULATORY - SURGERY [facility] Nov 18, 2024 11:30 AM AMBULATORY - MEDICINE [facility] Nov 23, 2024 02:00 PM AMBULATORY - PSYCHIATRY [facility] Nov 26, 2024 10:00 AM AMBULATORY - MEDICINE [facility] Dec 15, 2024 02:00 PM AMBULATORY - NONE [facility] Dec 20, 2024 09:20 AM AMBULATORY - MEDICINE [facility] Jan 11, 2025 09:40 AM AMBULATORY - SURGERY [facility] Jan 24, 2025 10:40 AM AMBULATORY - MEDICINE [facility] Jan 24, 2025 12:35 PM AMBULATORY - MEDICINE [facility] Feb 21, 2025 12:30 PM AMBULATORY - PSYCHIATRY [facility] Active, Pending, and Scheduled Orders This [...] - Chemi stry Order CBC BLOOD SP [facility] Oct 03, 2024 12:00 AM Laboratory - Chemi stry Order BASIC METABOLIC PANEL GREEN LI/HEP BLD/PLAS PLASMA SP [facility] Social History: Smoking Status (Most current) [...] 2023 11:00 AM VA-TOBACCO USER SOME DAYS [facility] Tobacco Use History This section includes a history of the smoking, or tobacco-related health factors, that were collected on or before the date of the Encounter. The data comes from the [place] facility where the Encounter took place. Date/Time Smoking Status/Tobacco Use Comment F acility Jun 05, 2023 11:00 AM VA-TOBACCO USE 5 TO 15 YEARS [facility] Jun 05, 2023 11:00 AM VA-TOBACCO USE ADVICE 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 Jun 05, 2023 11:00 AM VA-TOBACCO USE MED NO [facility] Jun 05, 2023 11:00 AM VA-TOBACCO USER SOME DAYS [facility] April 16, 2022 03:00 PM VA-TOBACCO FORMER USER [facility] April 16, 2022 03:00 PM VA-TOBACCO QUIT < 1 YEAR [facility] Nov 14, 2020 09:38 AM VA-TOBACCO USE 1 TO < 5 YEARS [facility] Nov 14, 2020 09:38 AM VA-TOBACCO USE ADVICE 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 Nov 14, 2020 09:38 AM VA-TOBACCO USE MED NO [facility] Nov 14, 2020 09:38 AM VA-TOBACCO USE WI 30 MIN OF WAKEUP [facility] Nov 14, 2020 09:38 AM VA-TOBACCO USER EVERY DAY [facility] Feb 08, 2019 10:08 AM VA-TOBACCO FORMER USER [facility] Feb 08, 2019 10:08 AM VA-TOBACCO QUIT 1 TO < 5 YRS [facility] Oct 17, 2017 03:25 PM CURRENT TOBACCO USER [facility] Oct 17, 2017 03:25 PM CURRENT TOBACCO US ER (NOT READY TO QUIT) [facility] Oct 17, 2017 03:25 PM TOBACCO CESSATION REFERRAL DECLINED [facility] Oct 17, 2017 03:25 PM TOBACCO MEDS OFFER ED BUT DECLINED [facility] Oct 17, 2017 03:25 PM TOBACCO USER OFFERED MEDS [facility] Jul 02, 2017 03:19 PM CURRENT TOBACCO USER [facility] Advance Directives: All historical and current Section [...] Provider Source May 07, 2023 ADVANCE DIRECTIVE DARLENE ENRIQUEZ [facility] Encounter Notes: All associated encounter notes This section contains the clinical notes associated to the Encounter. Date/Time Encounter Note(s) Provider Source Sep 06, 2024 02:41 PM PSYCHIATRY NOTE: LOCAL TITLE: PSYCHIATRY [facility] STANDARD TITLE: PSYCHIATRY NOTE DATE OF [...] + community resources for urgent care // [facility] contact information poss trial psychotherapy at [facility] center >> pending/unclear motivation f/u 8 weeks /loyda/ Mariano Quiñones M.D. Staff Physician, Psychiatry Signed: 09/06/2024 14:49 MARIANO QUIÑONES [facility]
--- OUTSIDE RECORDS SUMMARY | 2025-06-13 11:56 | XMS_ITS ---
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 Name Role Phone JOSUE SCHILLING [...] Policy [facility] Jose NEGRETE ITY Nov 17, 2018 [id number] Jose TABARES PATIENT [facility] PRESCRIPT ION EAL Nov 17, 2018 [facility] [id number] [phone] Jose TABARES PATIENT [facility] Jose NEGRETE ITY Nov 17, 2018 [id number] [phone] Jose TABARES PATIENT [facility] PREFERRED PROVIDER ORGANIZAT ION (PPO) JOSE Garcia SECUR ITY Nov 17, 2018 [id number] [phone] Jose TABARES PATIENT Selected Encounter This section includes the information on record at [place] for the Encounter. Date/Time Encounter Type Encounter Description Reason Provider Source April 06, 2025 01:18 PM Outpatient Encounter ADMIN PAT ACTIVTIES (MASNONCT) JERONIMO BENITO Tatyana Encounter Template Text not used by [place] Plan of Treatment: Future Appointments (+ 6 months) and Future Tests (+/- 45 days) The Plan of Treatment section includes future care activities for the patient [facility] [place] [facility] This section includes future appointments and future orders which are active, pending or scheduled. Future Appointments This section includes appointments that were scheduled to occur 6 months from the date of the Encounter, up to a maximum of 20 appointments. The data comes from all [facility]. Appointment Date/Time Appointment Type Appointme nt Facility Name May 10, 2025 11:20 AM AMBULATORY - SURGERY [facility] May 11, 2025 01:30 PM AMBULATORY - MEDICINE [facility] May 17, 2025 02:40 PM AMB[facility]ORY - MEDICINE [facility] May 19, 2025 11:00 AM AMBULATORY - NONE [facility] May 23, 2025 02:00 PM AMBULATORY - PSYCHIATRY [facility] May 24, 2025 10:40 AM AMBULATORY - SURGERY [facility] Jun 08, 2025 10:40 AM AMBULATORY - SURGERY [facility] Jun 15, 2025 10:15 AM AMBULATORY - MEDICINE [facility] Jun 21, 2025 02:30 PM AMBULATORY - PSYCHIATRY [facility] Aug 17, 2025 02:00 PM AMBULATORY - MEDICINE [facility] Active, [...] of theEncounter. The data comes from all [facility]. Test Date/Time Test Type Test Details Facility Name Mar 11, 2025 12:00 AM Laboratory - Chemistry Order CBC BLOOD SP [facility] Mar 11, 2025 12:00 AM Laboratory - Chemistry Order COMPREHENSIVE METABOLIC PANEL GREEN LI/HEP BLD/PLAS PLASMA SP [facility] Mar 11, 2025 12:00 AM Laboratory - Chemistry Order TSH (MA-PB) GOLD/RED SST SERUM SP [facility] Mar 11, 2025 12:00 AM Laboratory - Chemistry Order HGA1C BLOOD SP [facility] Mar 11, 2025 12:00 AM Laboratory - Chemistry Order LIPID PANEL (STL) GREEN LI/HEP BLD/PLAS PLASMA SP [facility] Social History: Smoking Status (Most current) and Tobacco Use (All prior to encounter date) This section includes the most current, and the historical, smoking and tobacco- related health factors from the [place] facility where the Encounter took place. Current Smoking Status This section includes the most current smoking, or tobacco-related health factor, from the [place] facility where the Encounter took place. Date/Time Current Smoking Status Comment Devorah ity Aug 05, 2024 11:55 AM VA-TOBACCO FORMER USER [facility] Tobacco Use History This section includes a history of the smoking, or tobacco-related health factors, that were collected on or before the date of the Encounter. The data comes from the [place] facility where the Encounter took place. Date/Time Smoking Status/Tobacco Use Comment F acility Aug 05, 2024 11:55 AM VA-TOBACCO QUIT 5 TO < 15 YRS [facility] May 07, 2023 06:21 AM ORYX ADMIT TOBACCO SCREEN YES [facility] May 07, 2023 06:21 AM ORYX ADMIT TOBACCO USE CIGS LS 5D [facility] May 07, 2023 06:21 AM ORYX DAILY TOBACCO FRAME CATCHER RECEIVED [facility] May 07, 2023 06:21 AM ORYX DAILY TOBACCO MEDS REFUSED [facility] Oct 27, 2013 02:51 PM QUIT TOBACCO >7 YEARS AGO [facility] Jan 07, 2013 10:01 AM CURRENT TOBACCO USER [facility] Jan 07, 2013 10:01 AM TOBACCO MEDS OFFER ED BUT DECLINED [facility] Sep 18, 2011 12:08 PM QUIT TOBACCO IN TH E LAST 12 MONTHS [facility] Jul 25, 2011 03:33 PM CURRENT TOBACCO USER [facility] Jul 20, 2010 10:35 AM QUIT TOBACCO IN TH E LAST 12 MONTHS [facility] Advance Directives: All historical and current Section Date Range: From patient's date of to the date document was created. This section includes ALL of a patient's completed or amended [place] Advance and Rescinded Directives. The entries below indicate that a directive exists for the patient, but an actual copy is not included with this document. The data comes from all [facility]. Date Advance Directives Provider Source May 07, 2023 ADVANCE DIRECTIVE DARLEEN ENRIQUEZ [facility] Pathology Reports: +/- 30 days of the encounter Pathology Reports For cases when an order for pathology services may have been completed prior to the date of the Encounter, the report list includes the Pathology Reports that were completed up to 30 days before dateof the Encounter. For cases when an order for pathology services may have been completed after the date of the Encounter, the report list also includes the Pathology Reports that were completed up to30 days after date of the Encounter. The data comes from all [facility] facilities. Date/Time Pathology Report Provider Source April 08, 2025 01:42 PM LR SURGICAL PATHOL OGY REPORT: LOCAL TITLE: LR SURGICAL PATHOLOGY REPORT STANDARD TITLE: PATHOLOGY PROCEDURE NOTE DATE OF NOTE: APRIL 08, 2025@13:42:55 ENTRY DATE: APRIL 08, 2025@13:42:55 AUTHOR: SALVATORE JOEL EXP COSIGNER: URGENCY: STATUS: COMPLETED $APHDR - - - - - - - - - - - - - - - - - - - - - - - - - - - - - - - - - - - - - - - - MEDICAL RECORD SURGICAL PATHOLOGY - - - - - - - - - - - - - - - - - - - - - - - - - - - - - - - - - - - - - - - - PATHOLOGY REPORT Accession No. SP [id number] - - - - - - - - - - - - - - - - - - - - - - - - - - - - - - - - - - - - - - - - $TEXT Submitted by: JORGE DORANTES Date obtained: April 06, 2025 14:00 - - - - - - - - - - - - - - - - - - - - - - - - - - - - - - - - - - - - - - - - Specimen (Received April 06, 2025 14:01): A. GASTRIC BIOPSIES - - - - - - - - - - - - - - - - - - - - - - - - - - - - - - - - - - - - - - - - BRIEF CLINICAL HISTORY: 44-year-old male with history of esophageal spasm and abdominal pain presents for EGD assessment. - - - - - - - - - - - - - - - - - - - - - - - - - - - - - - - - - - - - - - - - PREOPERATIVE DIAGNOSIS: Same as above - - - - - - - - - - - - - - - - - - - - - - - - - - - - - - - - - - - - - - - - OPERATIVE FINDINGS: None provided - - - - - - - - - - - - - - - - - - - - - - - - - - - - - - - - - - - - - - - - POSTOPERATIVE DIAGNOSIS: None provided Surgeon/physician: ALEXX ABDI MD =-=-=-=-=-=-=-=-=-=-=-=-=-=-=- =-=-=-=-=-=-=-=-=-=-=-=-=-=-=- =-=-=-=-=-=-=-=-=-= - - - - - - - - - - - - - - - - - - - - - - - - - - - - - - - - - - - - - - - - PATHOLOGY REPORT Accession No. SP [id number] - - - - - - - - - - - - - - - - - - - - - - - - - - - - - - - - - - - - - - - - GROSS DESCRIPTION: Thais De La Rosa, 04/06/25 Received in formalin in a container labeled with the patient's full name, SSN, and Gastric Biopsies are three can tissue fragments measuring from 0.3cm to 0.7cm in greatest dimension and 0.7 x 0.5 x 0.2cm in aggregate, which are submitted in toto in A1. MICROSCOPIC EXAM: Comment: Sections show gastric mucosa with diffusely reactive changes including diffusely and superficially edema, congestion and minimal to mild chronic inflammation, features more prominent seen in antrum-type mucosa which also shows mild foveolar hyperplasia and stromal fibrosis. Intestinal metaplasia or dysplasia is not identified. Immunostain of H. pylori is negative. Staining control worked appropriately. DIAGNOSIS: STOMACH, BIOPSY: -- GASTRIC MUCOSA WITH REACTIVE CHANGES (SEE COMMENT) -- NO EVIDENCE OF INTESTINAL METAPLASIA OR DYSPLASIA -- NO H. PYLORI IDENTIFIED /loyda/ SALVATORE JOEL MD, PhD STAFF PATHOLOGIST Signed April 08, 2025@13:42 Performing Laboratory: Surgical Pathology Report Performed By: [facility], [facility]# [id number] [address] [place] [phone] $FTR - - - - - - - - - - - - - - - - - - - - - - - - - - - - - - - - - - - - - - - - (End of report) SALVATORE JOEL MD Date April 08, 2025 - - - - - - - - - - - - - - - - - - - - - - - - - - - - - - - - - - - - - - - - ELEONORA TABARES STANDARD FORM 515 ID:[id number] SEX:M :1980 AGE: 44 LOC:[id number] PCP: Josue Schilling MD /loyda/ SALVATORE JOEL MD, PhD STAFF PATHOLOGIST Signed: 04/08/2025 13:42 SALVATORE JOEL [facility] Encounter Notes: All associated encounter notes This section contains the clinical notes associated to the Encounter. Date/Time Encounter Note(s) Provider Source April 06, 2025 01:18 PM ANESTHESIOLOGY ASHLEY WSHEET: LOCAL TITLE: ANES INTRA-OP FLOWSHEET STL STANDARD TITLE: ANESTHESIOLOGY FLOWSHEET DATE OF NOTE: APRIL 06, 2025@13:18 ENTRY DATE: APRIL 06, 2025@13:18:29 AUTHOR: JERONIMO BENITO COSIGNER: URGENCY: STATUS: COMPLETED Patient: ELEONORA TABARES SSN: [id number] Date of Operation: 04/06/2025 Surgery Start Time: Surgery End Time: Anesthesia Care Start: 04/06/2025 12:59 Anesthesia Care End: 04/06/2025 13:18 Anesthesia Method: Monitored 04/06/2025 13:02 (Primary), Level Of Consciousness: Sedated, Monitors Applied, Oxygen Therapy: Mask, EtCO2 Verified: Waveform Positioning: Head Neutral, Head And Neck In Alignment With Spine, Pressure Points Padded & Checked, Eyes, Ears And Nose Free Of Pressure ASA Number: 2 Procedure: EGD Diagnosis: Abdominal pain Holding, Anesthesia, PACU Drugs: ------- Lidocaine: 60 mg Propofol: 200 mg Propofol gtt: 106.918 mg DexmedeTOMidine: 8 mcg Holding, Anesthesia, PACU Fluids: -------- Normal Saline: 400 ml Resources: Headrest - Pillow Staff: --------- JERONIMO BENITO PRIN. ANES. ADEBAYO-ADONIS, OLUWAFUNMILAYO, ANES. SUPER. Procedure Date: 04/06/2025 Procedure Start Time: 04/06/2025 13:07 Procedure End Time: 04/06/2025 13:15 /loyda/ JERONIMO BENITO CERTIFIED REGISTERED NURSE TOOL GRINDER OPERATOR Signed: 04/06/2025 13:18 JERONIMO BENITO [facility]
--- OUTSIDE RECORDS SUMMARY | 2025-06-13 11:56 | XMS_ITS | Encounter Summary ---
Author Name [facility] [place] Organization [facility] Address [address] [place] [address] Care Team Providers Care Condenser Operator Name Role Phone JOSUE [employer] Primary [...] Policy [facility] Jose NEGRETE ITY Nov 17, 2018 [id number] Jose TABARES PATIENT [facility] PRESCRIPT ION UHEAL TH Nov 17, 2018 [facility] [id number] [phone] Jose TABARES PATIENT [facility] Jose NEGRETE ITY Nov 17, 2018 [id number] [phone] Jose TABARES PATIENT [facility] PREFERRED PROVIDER ORGANIZAT ION (PPO) JOSE Garcia SECUR ITY Nov 17, 2018 [id number] [phone] Jose TABARES PATIENT Selected Encounter This section includes the information on record at [place] for the Encounter. Date/Time Encounter Type Encounter Description Reason Provider Source Feb 21, 2025 12:30 PM OFFICE O/P EST MOD 30 MIN [facility] - IND ICD-10-CM F43.10 Post-traumatic stress disorder, unspecified [facility] Encounter Template Text not used by [place] Assessments - Encounter Diagnoses This section includes the primary and secondary diagnoses documented for the Encounter. Date/Time Primary/Secondary Diagnosis Diagnosis Name Provider Source Feb 21, 2025 01:02 PM PRIMARY Post-traumatic stress disorder, unspecified [facility] Feb 21, 2025 01:02 PM SECONDARY Alcohol use, unspecified with intoxication, uncomplicated [facility] Feb 21, 2025 01:02 PM SECONDARY Other specified depressive episodes [facility] Plan of Treatment: Future Appointments (+ 6 months) and Future Tests (+/- 45 days) The Plan of Treatment section includes future care activities for the patient from all [place] [facility]. This section includes future appointments and future orders which are active, pending or scheduled. Future Appointments This section includes appointments that were scheduled to occur 6 months from the date of the Encounter, up to a maximum of 20 appointments. The data comes from all [place] treatment facilities. Appointment Date/Time Appointment Type Appointme nt Facility Name Mar 08, 2025 02:00 PM AMBULATORY - MEDICINE [facility] April 06, 2025 01:15 PM AMBULATORY - MEDICINE [facility] May 10, 2025 11:20 AM AMBULATORY - SURGERY [facility] May 11, 2025 01:30 PM AMBULATORY - MEDICINE [facility] May 17, 2025 02:40 PM AMBULATORY - MEDICINE [facility] May 19, 2025 11:00 AM AMBULATORY - NONE . [facility] May 23, 2025 02:00 PM AMBULATORY - PSYCHIATRY [facility] May 24, 2025 10:40 AM AMBULATORY - SURGERY [facility] Jun 08, 2025 10:40 AM AMBULATORY - SURGERY [facility] Jun 15, 2025 10:15 AM AMBULATORY - MEDICINE [facility] Jun 21, 2025 02:30 PM AMBULATORY - PSYCHIATRY [facility] Aug 17, 2025 02:00 PM AMBULATORY - MEDICINE [facility] Active, Pending, and Scheduled Orders This section includes a listing of several types of active, pending, and scheduled orders, including clinic medications orders, diagnostic test orders, procedure orders and consult orders; where the start date of the order is 45 days before the date of the Encounter or 45 days after the date of theEncounter. The data comes from all [facility]. Test Date/Time Test Type Test Details Facility Name Mar 11, 2025 12:00 AM Laboratory - Chemistry Order CBC BLOOD [facility] Mar 11, 2025 12:00 AM Laboratory - Chemistry Order COMPREHENSIVE METABOLIC PANEL GREEN LI/HEP BLD/PLAS PLASMA [facility] Mar 11, 2025 12:00 AM Laboratory - Chemistry Order TSH (MA-PB) GOLD/RED SST SERUM [facility] Mar 11, 2025 12:00 AM Laboratory - Chemistry Order LIPID PANEL (STL) GREEN LI/HEP BLD/PLAS PLASMA [facility] Mar 11, 2025 12:00 AM Laboratory - Chemistry Order [id number] BLOOD [facility] Lab Results: +/- 30 days of [...] Unit Interpretation Reference Range Specimen Type Comment Jan 24, 2025 12:04 PM [facility] LIPASE PLASMA Specimen Type: PLASMA Comment: No hemolysis noted. K Called to Dr Mora at 1312 on 01/24/2025 by JUVENTINO Critical Verbal Readback Performed Ordering Provider: RENEE MORA Report Released Date/Time: Jan 24, 2025 11:14 AM Reporting Lab: [place] [address] [address] [facility] [address] Performing Lab: [place] [address] [facility] [address] LIPASE 45 U/L 8-78 Jan 24, 2025 12:04 PM [facility] COMPREHENSIVE METABOLIC PANEL PLASMA Specimen Type: PLASMA Comment: No hemolysis noted. K Called to Dr Mora at 1312 on 01/24/2025 by JUVENTINO Critical Verbal Readback Performed Ordering Provider: AIDEN MORA Report Released Date/Time: Jan 24, 2025 11:14 AM Reporting Lab: [address] [address] Performing Lab: [address] [address] CREATININE 0.75 mg/dL 0.7-1.3 UREA NITROGEN 5.9 mg/dL L 9.0-25.0 GLUCOSE 146 mg/dL H 72-99 SODIUM 135 meq/L L 136-145 POTASSIUM 2.9 meq/L LL 3.5-5 CHLORIDE 95 meq/L L 98-107 CARBON DIOXIDE 26 meq/L 22-31 CALCIUM 9.6 mg/dL 8.4-10.4 PROTEIN 8.0 g/dL 6-8.6 ALBUMIN 4.7 g/dL 3.4-5 TOTAL BILIRUBIN 0.4 mg/dL 0.2-1.2 ALKALINE PHOSPHATASE 50 U/L 40-150 AST/SGOT 70 U/L H 5-34 ALT/SGPT 161 U/L H 8-40 EGFR (CKD-EPI 2020) 114.8 >60 Jan 24, 2025 12:04 PM [facility] CBC BLOOD Specimen Type: BLOOD No comment entered. Ordering Provider: AIDEN MORA Report Released Date/Time: Jan 24, 2025 11:14 AM Reporting Lab: [address] [address] Performing Lab: [address] [address] WBC 8.0 10*3/uL 3.6-11.2 RBC 4.37 10*6/uL 4.10-5.70 HGB 13.5 g/dL 13.1-16.8 HCT 37.2 L 38.2-48.4 MCV 85.1 fL 80.0-100.0 MCH 30.9 pg 27.0-34.0 MCHC 36.3 g/dL H 33.0-36.0 PLT 276 10*3/uL 150-400 MPV 8.8 fL 7.5-11.2 RDW 12.4 11.8-15.1 NEUTROPHILS 68.4 MONOCYTES 13.2 BASOPHILS 0.9 PAPPENHEIMER BODIES 0 LYMPHOCYTES 9.6 ATYPICAL LYMPHOCYTES 7.9 PLT EST-CV ADEQUATE ADEQUATE NORMRBC Yes BASO#-MDIFF 0.07 10*3/uL 0.01-0.20 MONO#-MDIFF 1.06 10*3/uL H 0.19-0.80 LYMPH#-MDIFF 1.40 10*3/uL 0.77-4.50 NEUT#-MDIFF 5.47 10*3/uL 2.10-8.00 Social History: Smoking Status (Most current) and [...] Date/Time Current Smoking Status Comment Devorah itvamsi Jun 05, 2023 11:00 AM VA-TOBACCO USER SOME DAYS [facility] Tobacco Use History This section includes a history of the smoking, or tobacco-related health factors, that were collected on or before the date of the Encounter. The data comes from the [place] facility where the Encounter took place. Date/Time Smoking Status/Tobacco Use Comment F acility Jun 05, 2023 11:00 AM VA-TOBACCO USE 5 TO 15 YEARS [facility] Jun 05, 2023 11:00 AM VA-TOBACCO USE ADVICE [facility] Jun 05, 2023 11:00 AM VA-TOBACCO USE SPORTS COMPLEX ATTENDANT NO [facility] Jun 05, 2023 11:00 AM VA-TOBACCO USE MED NO [facility] Jun 05, 2023 11:00 AM VA-TOBACCO USER SOME DAYS [facility] April 16, 2022 03:00 PM VA-TOBACCO FORMER USER [facility] April 16, 2022 03:00 PM VA-TOBACCO QUIT < 1 YEAR [facility] Nov 14, 2020 09:38 AM VA-TOBACCO USE 1 TO < 5 YEARS [facility] Nov 14, 2020 09:38 AM VA-TOBACCO USE ADVICE [facility] Nov 14, 2020 09:38 AM VA-TOBACCO USE SPORTS COMPLEX ATTENDANT NO [facility] Nov 14, 2020 09:38 AM VA-TOBACCO USE MED NO [facility] Nov 14, 2020 09:38 AM VA-TOBACCO USE WI 30 MIN OF WAKEUP [facility] Nov 14, 2020 09:38 AM VA-TOBACCO USER EVERY DAY [facility] Feb 08, 2019 10:08 AM VA-TOBACCO FORMER USER [facility] Feb 08, 2019 10:08 AM VA-TOBACCO QUIT 1 TO < 5 YRS [facility] Oct 17, 2017 03:25 PM CURRENT TOBACCO USER [facility] Oct 17, 2017 03:25 PM CURRENT TOBACCO US ER (NOT READY TO QUIT) [facility] Oct 17, 2017 03:25 PM TOBACCO CESSATION REFERRAL DECLINED [facility] Oct 17, 2017 03:25 PM TOBACCO MEDS OFFER ED BUT DECLINED [facility] Oct 17, 2017 03:25 PM TOBACCO USER OFFERED MEDS [facility] Jul 02, 2017 03:19 PM CURRENT TOBACCO USER [facility] Advance Directives: All historical and current [...] 07, 2023 ADVANCE DIRECTIVE DARLEEN ENRIQUEZ [facility] Radiology Reports: +/- 30 days of the encounter Radiology Reports For cases when an order for radiology services may have been completed prior to the date of the Encounter, the report list includes the Radiology Reports that were completed up to 30 days before dateof the Encounter. For cases when an order for radiology services may have been completed after the date of the Encounter, the report list also includes the Radiology Reports that were completed up to30 days after date of the Encounter. The data comes from all [place] treatment facilities. Date/Time Radiology Report Provider Source Jan 24, 2025 02:[address] ABD PEL W/CONT & 3D: ELEONORA TABARES [id number] -[id number] M Exm Date: JAN 24, 2025@14:41 Req Phys: TAYLOR MCKINLEY Loc: [facility]Y DEPT 2ND SHIFT (R Img Loc: [facility] Service: [address] [address] (Case [id number] COMPLETE) CT ABDOMEN AND PELVIS W/CONTRAST (CT Detailed) CPT:39771 Contrast Media : Non-ionic Iodinated Reason for Study: upper abdominal pain Clinical History: Responsible Attending: Manisha Attending Contact Number: [phone] Resident Contact Number: acute on chronic abdominal pain Allergies listed in CPRS chart: Patient has answered NKA Creatinine:CREATININE 0.75 mg/dL 01/24/2025 12:04 /eGFR: STL EGFR (within one year). CREATININE 0.75 mg/dL (01/24/25 12:04) Wt: 149 lb [67.59 kg] (01/24/2025 10:41) History of: Renal failure, chronic or acute renal disease: NO Report Status: Verified Date Reported: JAN 24, 2025 Date Verified: JAN 24, 2025 Field Advisor E-Sig:/ES/RADHA JENKINS Report: [id number]. CT ABDOMEN AND PELVIS W/CONTRAST. IV contrast: Yes. Comparison: None History: upper abdominal pain FINDINGS: Inferior chest: Within normal limits. Liver: The liver is enlarged measuring up to 18.7 cm in craniocaudal dimension. The parenchyma is homogeneous in attenuation without focal lesion. The main portal vein and branches are patent. Gallbladder: The gallbladder is incompletely distended with borderline wall thickening measuring up to 4 mm. No evidence of radiopaque gallstones or pericholecystic fluid. Biliary: Within normal limits. Spleen: Within normal limits. Pancreas: Within normal limits. Adrenals: Within normal limits. Kidneys: Within normal limits. Bladder: The urinary bladder is distended but otherwise appears normal. Prostate: The prostate is partially calcified but otherwise appears normal. Gastrointestinal: No dilated loops of large or small bowel. The appendix is normal. Retroperitoneum/mesentery: There is nonspecific mesenteric edema most notably adjacent to the inferior hepatic surface and hepatic flexure of the colon. No mesenteric or retroperitoneal lymphadenopathy. Vascular: Within normal limits. Musculoskeletal: Within normal limits. Impression: 1. Hepatomegaly measuring up to 18.7 cm in craniocaudal length. 2. Mild gallbladder wall thickening is likely secondary to incompletely distended state. No evidence of radiopaque gallstones or pericholecystic fluid. 3. Mild nonspecific mesenteric edema. Report dictated by Johnny Whitehead M.D. (development vice president) I, Radha Jenkins, have reviewed the images and report and concur with these findings. Primary Interpreting Staff: RADHA JENKINS, Staff Physician (Field Advisor) Primary Interpreting Resident: Sharron Cisneros Resident /RADHA [id number] Encounter Notes: All associated encounter notes This section contains the clinical notes associated to the Encounter. Date/Time Encounter Note(s) Provider Source Feb 21, 2025 12:55 PM PSYCHIATRY NOTE: LOCAL TITLE: PSYCHIATRY ST STANDARD TITLE: PSYCHIATRY NOTE DATE OF NOTE: FEB 21, 2025@12:55 ENTRY DATE: FEB 21, 2025@12:55:18 AUTHOR: YASMANY QUIÑONES COSIGNER: URGENCY: STATUS: COMPLETED V15-[facility] Video Connect/Video to Home: [facility] Connect (VVC)/Video to home template v1.5 Visit conducted by synchronous telehealth. [place] Location/emergency number confirmed. Environment surveyed and all participants identified. Virtual conference room locked. VVC/Video to home appointment information: The following items were reviewed: - The nature of telehealth, its benefits, and risks. - Confidentiality and its limits. - The importance of having a confidential location for the service. - The emergency plan. - The appointment should be treated like an in person appointment (no smoking or driving during session, showing up fully dressed, etc.) *The Virtual Medical Room was locked for this encounter. *A survey of the environment was conducted and it is appropriate to conduct a VVC appointment. *Confirmed 's Non-VA location for this appointment: [facility] [address] [place] [id number] Address and phone number verified with [place]. Address: Phone: does not have an emergency contact. Others were present at this appointment(caregiver, family member, etc.) Details: *[place] was notified of right to decline Telehealth services and eligibility for other options. consented to be seen via VVC. EMERGENCY PLAN In the event of an emergency, the [place] or family will call emergency services, if capable. The Teleprovider will remain in the virtual medical room until emergency response arrives and handoff to emergency services is complete. If is unable to make emergency call, the Teleprovider is to call the [employer] service at [phone] and ask to be connected to emergency services for the [place] location. 's Crisis Line: Dial 988 then press 1, or text [phone] Office of [facility]cted [facility] Helpdesk (OCC): [phone] or [phone] Laterality (patient's right and/or left side) confirmed prior to intervention during video visit. Verified Provider's location and contact information for this appointment: [address] [address] x Pt seen and evaluated by VVC. Reports overwhelming stress and anxiety b/c of multiple physical health + financial issues. Lost about 20lbs over past year. Problems keeping food + fluids down without emesis. Dec energy + function during this time. Spending much of the day asleep on couch. GI w/u ongoing - scheduled for scope in weeks. Ongoing uncertainty regarding foresclousure. Tolerating mirtazipine - unknown benefit in the context of multiple stresses. Active Outpatient Medications (including Supplies): Active Outpatient Medications Status 1) ACETAMINOPHEN 325MG TAB TAKE TWO TABLETS BY MOUTH FOUR TIMES ACTIVE A DAY NEEDED CAUTION: DO NOT EXCEED 4000MG PER [...] RULER INSIDE BOX) Indication: FOR PAIN 3) DICYCLOMINE HCL 20MG TAB TAKE ONE TABLET BY MOUTH THREE ACTIVE TIMES A DAY NEEDED FOR ABDOMINAL PAIN Indication: ABD PAIN 4) HYDROXYZINE HCL 25MG TAB TAKE ONE TABLET BY MOUTH THREE ACTIVE TIMES A DAY NEEDED *MAY CAUSE DROWSINESS* Indication: FOR ANXIETY 5) LIDOCAINE 5% PATCH APPLY 1 PATCH TO SKIN SITE ONCE A DAY ACTIVE NEEDED APPLY PATCH AND PRESS FIRMLY FOR 10-15 SECONDS. KEEP ON FOR 12 HOURS THEN REMOVE PATCH FOR 12 HOURS. Indication: PAIN 6) MIRTAZAPINE 30MG TAB TAKE ONE-HALF TABLET BY MOUTH AT ACTIVE BEDTIME Indication: FOR DEPRESSION 7) OMEPRAZOLE 40MG EC CAP TAKE ONE CAPSULE BY MOUTH TWICE DAILY ACTIVE NEEDED TAKE 30 MINUTES PRIOR TO FOOD. Indication: FOR GASTROESOPHAGEAL REFLUX DISEASE 8) POTASSIUM CL 20MEQ SA TAB (DISPERSIBLE) TAKE ONE TABLET BY ACTIVE MOUTH ONCE A DAY FOR 1 DAY, THEN TAKE ONE-HALF TABLET ONCE A DAY FOR 6 DAYS TAKE WITH FOOD Indication: FOR POTASSIUM SUPPLEMENTATION Temperature: 98.1 F [36.7 C] (01/24/2025 12:43) Blood Pressure: 133/78 (01/24/2025 16:51) Pulse: 90 (01/24/2025 16:51) Respirations: 18 (01/24/2025 16:51) Alert, oriented, NAD, appropriately groomed Speech: nml rate, prosody TP: linear, goal directed TC: denies SI/HI/psychosis Mood: worried about my health Affect: congruent I/J: fair - wants to engage in treatment Impression: 44 year old male with PTSD, AUD + secondary physical problems + mood/anxiety disorders in the context of overwhelming stresses Plan: supportive psychotherapy focused on tolerated stresses - 17 min cont mirtaz 15mg targeting sleep + appetite + mood >> trial ODT to improve compliance/tolerability hydroxyzine prn sleep/anxiety encouraged wellness + meaningful activity reviewed [facility] + community resources for urgent care // [facility] contact information discussed medications - risks/dahiana/alt f/u 12 weeks /es/ Yasmany Quiñones M.D. Staff Physician, Psychiatry Signed: 02/21/2025 13:02 [facility]Y QUIÑONES [facility]
--- OUTSIDE RECORDS SUMMARY | 2025-06-13 11:56 | XMS_ITS | Encounter Summary ---
Author Name [place] Organization [place] Address [address] [place] [address] Care Team Providers Care Human Resources Training Manager Name Role Phone JOSUE NGO Primary [...] Policy Cano [facility] Jose NEGRETE ITY Nov 17, 2018 [id number] [phone] Jose TABARES PATIENT [facility] PRESCRIPT ION UHEAL Nov 17, 2018 [facility] [id number] Jose TABARES PATIENT [facility] Jose NEGRETE ITY Nov 17, 2018 [id number] [phone] Jose TABARES PATIENT [facility] PREFERRED PROVIDER ORGANIZAT ION (PPO) WHEJEROD Garcia SECUR ITY Nov 17, 2018 [id number] [phone] Jose TABARES PATIENT Selected Encounter This section includes the information on record at [place] for the Encounter. Date/Time Encounter Type Encounter Description Reason Provider Source May 19, 2025 01:25 PM Outpatient Encounter ADMIN PAT ACTIVTIES (MASNONCT) TORO RAMOS IHTatyana Encounter Template Text not used by [place] Plan of Treatment: Future Appointments (+ 6 months) and Future Tests (+/- 45 days) The Plan of Treatment section includes future care activities for the patient from all [place] [facility]. This section includes future appointments and future orders which are active, pending or scheduled. Future Appointments This section includes appointments that were scheduled to occur 6 months from the date of the Encounter, up to a maximum of 20 appointments. The data comes from all [facility]. Appointment Date/Time Appointment Type Appointme nt Facility Name May 23, 2025 02:00 PM AMBULATORY - PSYCHIATRY [facility] May 24, 2025 10:40 AM AMBULATORY - SURGERY [facility] Jun 08, 2025 10:40 AM AMBULATORY - SURGERY [facility] Jun 15, 2025 10:15 AM AMBULATORY - MEDICINE [facility] Jun 21, 2025 02:30 PM AMBULATORY - PSYCHIATRY [facility] Aug 17, 2025 02:00 PM AMBULATORY - MEDICINE [facility] Active, Pending, and Scheduled Orders This section includes a listing of several types of active, pending, and scheduled orders, including clinic medications orders, diagnostic test orders, procedure orders and consult orders; where the start date of the order is 45 days before the date of the Encounter or 45 days after the date of theEncounter. The data comes from all [facility]. Test Date/Time Test Type Test Details Facility Name Jun 15, 2025 12:00 AM Laboratory - Chemi stry Order RENAL PANEL GREEN LI/HEP BLD/PLAS PLASMA SP [facility] Jun 15, 2025 12:00 AM Laboratory - Chemi stry Order MAGNESIUM GREEN LI/HEP BLD/PLAS PLASMA SP [facility] Lab Results: +/- 30 days of the encounter This section includes the Chemistry and Hematology Lab Results on record with [place] for the patient. Radiology Reports and Pathology Reports are provided separately, in subsequent sections. Lab Results This section contains the Chemistry/Hematology Results that were resulted 30 days before or 30 daysafter the date of the Encounter. Date/Time Source Result Type Result - Unit Interpretation Reference Range Specimen Type Comment May 10, 2025 11:02 AM [facility] BASIC METABOLIC PANEL PLASMA Specimen Type: PLASMA Comment: No hemolysis noted. Ordering Provider: ALE BALTAZAR Report Released Date/Time: May 09, 2025 12:21 PM Reporting Lab: [address] [address] Performing Lab: [address] [address] CREATININE 0.66 mg/dL L 0.7-1.3 UREA NITROGEN 4.1 mg/dL L 9.0-25.0 GLUCOSE 59 mg/dL L 72-99 SODIUM 139 meq/L 136-145 POTASSIUM 3.4 meq/L L 3.5-5 CHLORIDE 104 meq/L 98-107 CARBON DIOXIDE 28 meq/L 22-31 CALCIUM 9.1 mg/dL 8.4-10.4 EGFR (CKD-EPI 2020) 119.4 >60 May 10, 2025 11:02 AM [facility] CBC BLOOD Specimen Type: BLOOD No comment entered. Ordering Provider: ALE BALTAZAR Report Released Date/Time: May 09, 2025 12:21 PM Reporting Lab: [place] [id number] [facility] [address] Performing Lab: [address] [address] WBC 7.1 10*3/uL 3.6-11.2 RBC 3.92 10*6/uL [...] Height Weight Body Mass Index Source May 19, 2025 01:55 PM 97.6 F 75 /min 130/97 mm[Hg] 16 /min 100 % 0 [facility] May 19, 2025 11:55 AM 98.3 F 92 /min 130/94 mm[Hg] 14 /min 100 % 5 71 in 143.9 lb 20 [facility] N Social History: Smoking Status (Most current) and Tobacco Use (All prior to encounter date) This section includes the most current, and the historical, smoking and tobacco- related health factors from the [place] facility where the Encounter took place. Current Smoking Status This section includes the most current smoking, or tobacco-related health factor, from the [place] facility where the Encounter took place. Date/Time Current Smoking Status Comment Devorah itvamsi Aug 05, 2024 11:55 AM VA-TOBACCO FORMER USER [facility] Tobacco Use History This section includes a history of the smoking, or tobacco-related health factors, that were collected on or before the date of the Encounter. The data comes from the [place] facility where the Encounter took place. 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 [facility] May 07, 2023 06:21 AM ORYX DAILY TOBACCO MEDS REFUSED [facility] Oct 27, 2013 02:51 PM QUIT TOBACCO >7 YEARS AGO [facility] Jan 07, 2013 10:01 AM CURRENT TOBACCO USER [facility] Jan 07, 2013 10:01 AM TOBACCO MEDS OFFER ED BUT DECLINED [facility] Sep 18, 2011 12:08 PM QUIT TOBACCO IN TH E LAST 12 MONTHS [facility] Jul 25, 2011 03:33 PM CURRENT TOBACCO USER [facility] Jul 20, 2010 10:35 AM QUIT TOBACCO IN TH E LAST 12 MONTHS [facility] Advance Directives: All historical and current Section Date Range: From patient's date of to the date document was created. This section includes ALL of a patient's completed or amended [place] Advance and Rescinded Directives. The entries below indicate that a directive exists for the patient, but an actual copy is not included with this document. The data comes from all [place] facilities. Date Advance Directives Provider Source May 07, 2023 ADVANCE DIRECTIVE DARLEEN ENRIQUEZ [facility] Encounter Notes: All associated encounter notes This section contains the clinical notes associated to the Encounter. Date/Time Encounter Note(s) Provider Source May 19, 2025 01:25 PM ANESTHESIOLOGY ASHLEY WSHEET: LOCAL TITLE: ANES INTRA-OP FLOWSHEET ST STANDARD TITLE: ANESTHESIOLOGY FLOWSHEET DATE OF NOTE: MAY 19, 2025@13:25 ENTRY DATE: MAY 19, 2025@13:25:27 AUTHOR: TORO RAMOS COSIGNER: URGENCY: STATUS: COMPLETED Patient: ELEONORA TABARES SSN: [id number] Date of Operation: 05/19/2025 Surgery Start Time: 05/19/2025 12:59 Surgery End Time: 05/19/2025 13:17 Anesthesia Care Start: 05/19/2025 12:40 Anesthesia Care End: 05/19/2025 13:29 Anesthesia Method: - Monitored 05/19/2025 12:45 (Primary), Level Of Consciousness: Sedated, Monitors Applied, Oxygen Therapy: Mask, EtCO2 Verified: Waveform Positioning: Head Neutral, Head And Neck In Alignment With Spine, Pressure Points Padded & Checked, Eyes, Ears And Nose Free Of Pressure ASA Number: 2 Procedure: left carpal tunnel release Diagnosis: Carpal tunnel syndrome, left upper limb left carpal tunnel syndrome Holding, Anesthesia, PACU Drugs: --------- FentaNYL: 100 mcg Propofol: 100 mg Propofol gtt: 403.298 mg ceFAZolin: 2 g Acetaminophen IVPB: 1 g Holding, Anesthesia, PACU Fluids: Ringers Lactated Solution: 500 ml Resources: Aquacel foam placed on crystal prominence to protect skin during surgery Staff: --------- ALE BALTAZAR, SURGEON ALE BALTAZAR, ATT. SURGEON RUSS BAGLEY, Holding Nurse TORO RAMOS PRIN. ANGEL. JOSE R PAGE ANES. SUPER. Anesthesia Procedure: ----- Procedure 05/19/2025 12:59 Site: Upper Arm, Laterality: Left, Tourniquet Pressure (mmHg): 250 12:59 Tourniquet Inflated 13:03 Tourniquet Deflated Total Time: 04:38 Procedure Date: 05/19/2025 Procedure Start Time: Procedure End Time: /loyda/ TORO RAMOS CRNA PROOFING MACHINE OPERATOR, Anesthesiology Signed: 05/19/2025 13:[address] [facility]
--- OUTSIDE RECORDS SUMMARY | 2025-06-13 11:56 | XMS_ITS | Encounter Summary ---
Author Name Department of [place]a Affairs [place]) Organization [facility] [place] Address [address] [place] [address] Care Team Providers Care Manager Asset Management Name Role Phone JOSUE NGO Primary [...] Policy Cano [facility] Jose NEGRETE ITY Nov 17, 2018 [id number] Jose TABARES PATIENT [facility] PRESCRIPT ION UHEAL TH Nov 17, 2018 [facility] [id number] Jose TABARES PATIENT [facility] Jose NEGRETE ITY Nov 17, 2018 [id number] [phone] Jose TABARES PATIENT [facility] PREFERRED PROVIDER ORGANIZAT ION (PPO) JOSE Garcia SECUR ITY Nov 17, 2018 [id number] [phone] Jose TABARES PATIENT Selected Encounter This section includes the information on record at [place] for the Encounter. Date/Time Encounter Type Encounter Description Reason Provider Source May 19, 2025 09:00 AM OFFICE O/P EST LOW 20 MIN PLASTIC SURGERY ICD-10-CM G56.02 Carpal tunnel syndrome, left upper limb TOJoseALE NIDHI Encounter Template Text not used by [place] Assessments - Encounter Diagnoses This section includes the primary and secondary diagnoses documented for the Encounter. Date/Time Primary/Secondary Diagnosis Diagnosis Name Provider Source May 19, 2025 12:22 PM PRIMARY Carpal tunnel syndrome, left upper limb MILLY CORDOVA [facility] Plan of Treatment: Future Appointments (+ 6 months) and Future Tests (+/- 45 days) The Plan of Treatment section includes future care activities for the patient from all [place] [facility]. This section includes future appointments and future orders which are active, pending or scheduled. Future Appointments This section includes appointments that were scheduled to occur 6 months from the date of the Encounter, up to a maximum of 20 appointments. The data comes from all [facility]. Appointment Date/Time Appointment Type Appointme nt Facility Name May 23, 2025 02:00 PM AMBULATORY - PSYCHIATRY [facility] May 24, 2025 10:40 AM AMBULATORY - SURGERY [facility] Jun 08, 2025 10:40 AM AMBULATORY - SURGERY [facility] Jun 15, 2025 10:15 AM AMBULATORY - MEDICINE [facility] Jun 21, 2025 02:30 PM AMBULATORY - PSYCHIATRY [facility] Aug 17, 2025 02:00 PM AMBULATORY - MEDICINE [facility] Active, Pending, and Scheduled Orders This section includes a listing of several types of active, pending, and scheduled orders, including clinic medications orders, diagnostic test orders, procedure orders and consult orders; where the start date of the order is 45 days before the date of the Encounter or 45 days after the date of theEncounter. The data comes from all [facility]. Test Date/Time Test Type Test Details Facility Name Jun 15, 2025 12:00 AM Laboratory - Chemi stry Order RENAL PANEL GREEN LI/HEP BLD/PLAS PLASMA SP [facility] Jun 15, 2025 12:00 AM Laboratory - Chemi stry Order MAGNESIUM GREEN LI/HEP BLD/PLAS PLASMA SP [facility] Lab Results: +/- 30 days [...] Type Comment May 10, 2025 11:[address] [facility] BASIC METABOLIC PANEL PLASMA Specimen Type: PLASMA Comment: No hemolysis noted. Ordering Provider: ALE BALTAZAR Report Released Date/Time: May 09, 2025 12:21 PM Reporting Lab: [address] [address] Performing Lab: [address] [address] CREATININE 0.66 mg/dL L 0.7-1.3 UREA NITROGEN 4.1 mg/dL L 9.0-25.0 GLUCOSE 59 mg/dL L 72-99 SODIUM 139 meq/L 136-145 POTASSIUM 3.4 meq/L L 3.5-5 CHLORIDE 104 meq/L 98-107 CARBON DIOXIDE 28 meq/L 22-31 CALCIUM 9.1 mg/dL 8.4-10.4 EGFR (CKD-EPI 2020) 119.4 >60 May 10, 2025 11:02 AM [facility] CBC BLOOD Specimen Type: BLOOD No comment entered. Ordering Provider: ALE BALTAZAR Report Released Date/Time: May 09, 2025 12:21 PM Reporting Lab: [facility] [address] [facility] [address] Performing Lab: [address] [address] WBC 7.1 10*3/uL 3.6-11.2 RBC 3.92 10*6/uL [...] 130/97 mm[Hg] 16 /min 100 % 0 [facility] May 19, 2025 11:55 AM 98.3 F 92 /min 130/94 mm[Hg] 14 /min 100 % 5 71 in 143.9 lb 20 [facility] Social History: Smoking Status [...] 05, 2024 11:55 AM VA-TOBACCO FORMER USER [facility] Tobacco Use History This section includes a history of the smoking, or tobacco-related health factors, that were collected on or before the date of the Encounter. The data comes from the [place] facility where the Encounter took place. Date/Time Smoking Status/Tobacco Use Comment F acility Aug 05, 2024 11:55 AM [place]-TOBACCO QUIT 5 TO < 15 YRS [facility] May 07, 2023 06:21 AM ORYX ADMIT TOBACCO SCREEN YES [facility] May 07, 2023 06:21 AM ORYX ADMIT TOBACCO USE CIGS LS 5D [facility] May 07, 2023 06:21 AM ORYX DAILY TOBACCO WORKFORCE MANAGER RECEIVED [facility] May 07, 2023 06:21 AM ORYX DAILY TOBACCO MEDS REFUSED [facility] Oct 27, 2013 02:51 PM QUIT TOBACCO >[address] [facility] Jan 07, 2013 10:01 AM CURRENT TOBACCO USER [facility] Jan 07, 2013 10:01 AM TOBACCO MEDS OFFER ED BUT DECLINED [facility] Sep 18, 2011 12:08 PM QUIT TOBACCO IN TH E LAST [address] [facility] Jul 25, 2011 03:33 PM CURRENT TOBACCO USER [facility] Jul 20, 2010 10:35 AM QUIT TOBACCO IN TH E LAST [address] [facility] Advance Directives: All historical and [...] 07, 2023 ADVANCE DIRECTIVE DARLEEN ENRIQUEZ [facility] Encounter Notes: All associated encounter notes This section contains the clinical notes associated to the Encounter. Date/Time Encounter Note(s) Provider Source May 19, 2025 12:24 PM SURGERY ATTENDING NOTE: LOCAL TITLE: ATTENDING SURGEON PREOPERATIVE STL STANDARD TITLE: SURGERY ATTENDING NOTE DATE OF NOTE: MAY 19, 2025@12:24 ENTRY DATE: MAY 19, 2025@12:24:08 AUTHOR: ALE BALTAZAR EXP COSIGNER: URGENCY: STATUS: COMPLETED Surgical H&P Date of Planned Procedure: May Surgical H&P Dated May reviewed on May Surgical H&P completed within 30 days of planned procedure:Yes Attending Surgeon Preoperative STL completed within 24 hours of procedure? Yes Changes noted to the H&P:NO I have seen and examined the patient and agree with the H&P, assessment and plan. YES Preoperative Findings/Diagnosis: Left carpal tunnel syndrome Plan/Procedure: Left open carpal tunnel release /es/ ALE BALTAZAR MD Staff Physician, Plastic Surgery Signed: 05/19/2025 12:25 ALE BALTAZAR [facility] May 19, 2025 12:21 PM PLASTIC SURGERY NO TE: LOCAL TITLE: PLASTIC SURGERY NOTE STANDARD TITLE: PLASTIC SURGERY NOTE DATE OF NOTE: MAY 19, 2025@12:21 ENTRY DATE: MAY 18, 2025@14:18:29 AUTHOR: MILLY CORDOVA COSIGNER: ALE BALTAZAR URGENCY: STATUS: COMPLETED Plastic Surgery Preop H&P Note MAY 19, 2025 HPI: 44 YEAR OLD MALE who presents today for surgery. Patient denies any changes to his health since last clinic visit. He denies any recent fevers, chills, URI sx, or any other complaints. Plan to proceed with left carpal tunnel release Past Medical HX: HTN, PTSD, MDD, SHIRA, h/o chronic EtOH abuse/dependence, h/o multiple TBIs (per S H&P 05/31/21 and Polytrauma[facility] evaluation 2009), CLBP, insomnia, ADHD Plastic Surgery History: No relevant Plastic Surgery history Allergies: NKDA Social History: No nicotine use, positive marijuana use, no alcohol use ROS: NEGATIVE EXCEPT PER HPI ALLERGIES: Patient has answered NKA ACTIVE INPT MEDS: No medications found. ACTIVE OUTPATIENT MEDS: Active Outpatient Medications (including [...] FOOD. Indication: FOR GASTROESOPHAGEAL REFLUX DISEASE 7) POTASSIUM CL 20MEQ SA TAB (DISPERSIBLE) TAKE ONE TABLET BY ACTIVE MOUTH ONCE A DAY FOR 1 DAY, THEN TAKE ONE-HALF TABLET ONCE A DAY FOR 6 DAYS TAKE WITH FOOD Indication: FOR POTASSIUM SUPPLEMENTATION O: Temp: 98.1 F [36.7 C] (01/24/2025 12:43) Pulse Ox: Measurement DT POx (L/MIN)(%) 01/24/2025 16:51 98 01/24/2025 14:00 99 01/24/2025 10:41 98 01/11/2025 10:16 100 PULSE: 90 (01/24/2025 16:51) RESPIRATION: 18 (01/24/2025 16:51) BLOOD PRESSURE: 133/78 (01/24/2025 16:51) Life Sustaining Treatment Orders PHYSICAL EXAM: NEURO: alert, oriented LUNGS: symmetric chest rise, no audible wheezing HEART: RRR ABDOMEN: soft, non-tender, non-distended EXT: WWP, flexors/extensors intact in bilateral upper extremities, sensation intact in all major nerve distributions to bilateral hands. Provocative testing negative to the left carpal and cubital tunnel sites. LABS: CHEM 7: SODIUM 139 mEq/L 05/10/2025 11:02 POTASSIUM 3.4 L mEq/L 05/10/2025 11:02 CHLORIDE 104 mEq/L 05/10/2025 11:02 UREA NITROGEN 4.1 L mg/dL 05/10/2025 11:02 CREATININE 0.66 L mg/dL 05/10/2025 11:02 CALCIUM 9.1 mg/dL 05/10/2025 11:02 CARBON DIOXIDE 28 mEq/L 05/10/2025 11:02 GLUCOSE 59 L mg/dL 05/10/2025 11:02 EGFR (CKD-EPI 2020) 119.4 05/10/2025 11:02 CBC: WBC 7.1 10*3/uL 05/10/2025 11:02 RBC 3.92 L 10*6/uL 05/10/2025 11:02 HGB 12.7 L g/dL 05/10/2025 11:02 HCT 38.1 L % 05/10/2025 11:02 MCV 97.2 fL 05/10/2025 11:02 MCH 32.4 pg 05/10/2025 11:02 MCHC 33.3 g/dL 05/10/2025 11:02 RDW 11.8 % 05/10/2025 11:02 PLT 429 H 10*3/uL 05/10/2025 11:02 MPV 8.1 fL 05/10/2025 11:02 NEUTROPHILS, AUTO % 51 % 05/10/2025 11:02 LYMPHOCYTES, AUTO % 31 % 05/10/2025 11:02 MONOCYTES, AUTO % 12 % 05/10/2025 11:02 EOSINOPHILS, AUTO % 4 % 05/10/2025 11:02 BASOPHILS, AUTO % 2 % 05/10/2025 11:02 NEUTROPHILS, ABSOLUTE 3.58 10*3/uL 05/10/2025 11:02 LYMPHOCYTES, ABSOLUTE 2.19 10*3/uL 05/10/2025 11:02 MONOCYTES, ABSOLUTE 0.85 H 10*3/uL 05/10/2025 11:02 EOSINOPHILS, ABSOLUTE 0.27 10*3/uL 05/10/2025 11:02 BASOPHILS, ABSOLUTE 0.12 10*3/uL 05/10/2025 11:02 NEUTROPHILS 68.4 % 01/24/2025 12:04 LYMPHOCYTES 9.6 % 01/24/2025 12:04 MONOCYTES 13.2 % 01/24/2025 12:04 BASOPHILS 0.9 % 01/24/2025 12:04 ATYPICAL LYMPHOCYTES 7.9 % 01/24/2025 12:04 ACTIVE INPT MEDS: No medications found. ASSESSMENT/PLAN: 44 YEAR OLD MALE who presents today for surgery. - to OR for left carpal tunnel release under MAC/local - consented - site marked - NPO since midnight - abx: Ancef - dispo: to OR when ready /loyda/ MILLY CORDOVA [facility] Affiliate PGY 2; RESIDENT PHYSICIAN,SURGERY Signed: 05/19/2025 12:22 /loyda/ ALE BALTAZAR MD Staff Physician, Plastic Surgery Cosigned: 05/19/2025 12:23 MILLY CORDOVA [facility]
--- OUTSIDE RECORDS SUMMARY | 2025-06-13 11:56 | XMS_ITS | Encounter Summary ---
Author Name [facility] [place] Organization [place] Address [address] [place] [address] Care Team Providers Care Mule Developer Name Role Phone JOSUE SCHILLING Primary Care [...] Policy Cano [facility] Jose NEGRETE ITY Nov 17, 2018 [id number] Jose TABARES PATIENT [facility] PRESCRIPT ION UHEAL TH Nov 17, 2018 [facility] [id number] [phone] Jose TABARES PATIENT [facility] Jose NEGRETE ITY Nov 17, 2018 [id number] [phone] Jose TABARES PATIENT [facility] PREFERRED PROVIDER ORGANIZAT ION (PPO) JOSE NEGRETE ITY Nov 17, 2018 [id number] [phone] Jose TABARES PATIENT Selected Encounter This section includes the information on record at [place] for the Encounter. Date/Time Encounter Type Encounter Description Reason Provider Source May 25, 2025 11:56 AM Outpatient Encounter RENAL/NEPHROL(EXC EPT DIALYSIS) ICD-10-CM E87.6 Hypokalemia SANDRA SEO IHE Encounter Template Text not used by [place] Assessments - Encounter Diagnoses This section includes the primary and secondary diagnoses documented for the Encounter. Date/Time Primary/Secondary Diagnosis Diagnosis Name Provider Source 2025 03:13 PM PRIMARY Hypokalemia NICO SEO [facility] Plan of Treatment: Future Appointments (+ 6 months) and Future Tests (+/- 45 days) The Plan of Treatment section includes future care activities for the patient from all [place] [facility]. This section includes future appointments and future orders which are active, pending or scheduled. Future Appointments This section includes appointments that were scheduled to occur 6 months from the date of the Encounter, up to a maximum of 20 appointments. The data comes from all [facility]. Appointment Date/Time Appointment Type Appointme nt Facility Name Jun 08, 2025 10:40 AM AMBULATORY - SURGERY [facility] Jun 15, 2025 10:15 AM AMBULATORY - MEDICINE [facility] Jun 21, 2025 02:30 PM AMBULATORY - PSYCHIATRY [facility] Aug 17, 2025 02:00 PM AMBULATORY - MEDICINE [facility] Active, Pending, and Scheduled Orders [...] Order MAGNESIUM GREEN LI/HEP BLD/PLAS PLASMA SP [facility] Jun 15, 2025 12:00 AM Laboratory - Chemi stry Order RENAL PANEL GREEN LI/HEP BLD/PLAS PLASMA SP [facility] Lab Results: +/- 30 days of the encounter This section includes the Chemistry and Hematology Lab Results on record with [place] for the patient. Radiology Reports and Pathology Reports are provided separately, in subsequent sections. Lab Results This section contains the Chemistry/Hematology Results that were resulted 30 days before or 30 daysafter the date of the Encounter. Date/Time Source Result Type Result - Unit Interpretation Reference Range Specimen Type Comment May 10, 2025 11:02 AM [facility] BASIC METABOLIC PANEL PLASMA Specimen Type: PLASMA Comment: No hemolysis noted. Ordering Provider: ALE BALTAZAR Report Released Date/Time: May 09, 2025 12:21 PM Reporting Lab: [address] [address] Performing Lab: [address] [address] CREATININE 0.66 mg/dL L 0.7-1.3 UREA NITROGEN 4.1 mg/dL L 9.0-25.0 GLUCOSE 59 mg/dL L 72-99 SODIUM 139 meq/L 136-145 POTASSIUM 3.4 meq/L L 3.5-5 CHLORIDE 104 meq/L 98-107 CARBON DIOXIDE 28 meq/L 22-31 CALCIUM 9.1 mg/dL 8.4-10.4 EGFR (CKD-EPI 2020) 119.4 >60 May 10, 2025 11:02 AM [facility] CBC BLOOD Specimen Type: BLOOD No comment entered. Ordering Provider: ALE BALTAZAR Report Released Date/Time: May 09, 2025 12:21 PM Reporting Lab: [address] [address] Performing Lab: [address] [address] WBC 7.1 10*3/uL 3.6-11.2 RBC 3.92 10*6/uL [...] 0.60 BASOPHILS, ABSOLUTE 0.12 10*3/uL 0.00-0. 20 Social History: Smoking Status (Most current) and Tobacco Use (All prior to encounter date) This section includes the most current, and the historical, smoking and tobacco- related health factors from the [place] facility where the Encounter took place. Current Smoking Status This section includes the most current smoking, or tobacco-related health factor, from the [place] facility where the Encounter took place. Date/Time Current Smoking Status Comment Devorah ity Aug 05, 2024 11:55 AM [place]-TOBACCO FORMER USER [facility] Tobacco Use History This section includes a history of the smoking, or tobacco-related health factors, that were collected on or before the date of the Encounter. The data comes from the [place] facility where the Encounter took place. Date/Time Smoking Status/Tobacco Use Comment F acnita Aug 05, 2024 11:55 AM VA-TOBACCO QUIT 5 TO < 15 YRS [facility] May 07, 2023 06:21 AM ORYX ADMIT TOBACCO SCREEN YES [facility] May 07, 2023 06:21 AM ORYX ADMIT TOBACCO USE CIGS LS 5D [facility] May 07, 2023 06:21 AM ORYX DAILY TOBACCO BUYER ASSISTANT RECEIVED [facility] May 07, 2023 [...] E LAST 12 MONTHS [facility] Jul 25, 2011 03:33 PM CURRENT TOBACCO USER [facility] Jul 20, 2010 10:35 AM QUIT TOBACCO IN TH E LAST 12 MONTHS [facility] Advance Directives: All historical and current Section Date Range: From patient's date of to the date document was created. This section includes ALL of a patient's completed or amended [place] Advance and Rescinded Directives. The entries below indicate that a directive exists for the patient, but an actual copy is not included with this document. The data comes from all [place] facilities. Date Advance Directives Provider Source May 07, 2023 ADVANCE DIRECTIVE DARLEEN ENRIQUEZ [facility] Encounter Notes: All associated encounter notes This section contains the clinical notes associated to the Encounter. Date/Time Encounter Note(s) Provider Source Jun 01, 2025 10:45 AM NEPHROLOGY NURSING NOTE: LOCAL TITLE: NURSE RENAL STL STANDARD TITLE: NEPHROLOGY NURSING NOTE DATE OF NOTE: JUN 01, 2025@10:45 ENTRY DATE: JUN 01, 2025@10:45:48 AUTHOR: VINAY BOSWELL EXP COSIGNER: URGENCY: STATUS: COMPLETED Letter mailed to vet's home advising to incl high-potassium foods in diet r/t consistent low- borderline low potassium levels. Also, informed of dangers of low potassium levels and reminded to get labs drawn 06/15/2025. Mr. Eyal Tabares, Your potassium levels have been consistently running low to borderline low. Low potassium can have negative effects including muscle weakness,irregular heartbeat,low blood pressure,confusion,and even . Dr. Seo would like for you to include high-potassium foods in your diet and repeat labs on 06/15/2025. Enclosed are food lists with potassium content to assist you with meal planning. If you have any questions, please call [phone] /loyda/ VINAY BOSWELL REGISTERED NURSE Signed: 06/01/2025 10:55 VINAY BOSWELL [facility] May 25, 2025 11:56 AM CONSULT: LOCAL TITLE: E-CONSULT RENAL OUTPT STL STANDARD TITLE: CONSULT DATE OF NOTE: MAY 25, 2025@11:56 ENTRY DATE: MAY 25, 2025@11:56:22 AUTHOR: MENA SEO EXP COSIGNER: URGENCY: STATUS: COMPLETED The reason for consult: Hypokalemia I have reviewed pertinent CPRS documentation in the electronic medical record for this patient. The recommendations/findings offered are the result of information from the requesting provider and a chart review only. 44yM with hypokalemia, k 2.9 to 3.4 on kcl supplements. pt stated that he was not able to eat well as he had stomach problems and he is doing better now after he saw GI and found to have esophagitis on PPI. He has recent carpal luis alfredo surgery and has ride issues to come to his appt. Pt has no HTN. His blood glucose level was also low at 59. Diagnosis and/or Impression: Hypokalemia, unclear etiology and pt stated that PO intake was poor and is now improving. F/u repeat k level and Mag when pt comes for another appt at on 06/15. I will cc renal RN to f/u for education related to high k foods. I reached pt by phone and discussed above, ordered labs for 06/15. 11 minutes to 20 minutes spent reviewing patient's medical records /loyda/ MENA SEO MD STAFF PHYSICIAN,NEPHROLOGY Signed: 05/25/2025 12:04 Receipt Acknowledged By: 06/01/2025 10:40 /loyda/ VINAY BOSWELL REGISTERED NURSE 05/25/2025 14:15 /loyda/ Josue Schilling MD Staff Physician MENA SEO [facility]
--- OUTSIDE RECORDS SUMMARY | 2025-06-13 11:57 | XMS_ITS ---
Author Name [facility] Address [address] [place] [address] Care Team Providers Care Lab Pack Chemist Name Role Phone JOSUE NGO Primary Care [...] Policy Cano [facility] Jose NEGRETE ITY Nov 17, 2018 [id number] Jose TABARES PATIENT [facility] PRESCRIPT ION UHEAL TH Nov 17, 2018 [facility] [id number] [phone] Jose TABARES PATIENT [facility] Jose NEGRETE ITY Nov 17, 2018 [id number] [phone] Jose TABARES PATIENT [facility] PREFERRED PROVIDER ORGANIZAT ION (PPO) JOSE MONDRAGONUR ITY Nov 17, 2018 [id number] [phone] Jose TABARES PATIENT Selected Encounter This section includes the information on record at [place] for the Encounter. Date/Time Encounter Type Encounter Description Reason Provider Source May 10, 2025 11:20 AM OFFICE O/P EST HI 40 MIN PLASTIC SURGERY ICD-10-CM G56.02 Carpal tunnel syndrome, left upper limb [facility]ZANNEBOBOALE TERRELL Encounter Template Text not used by [place] Assessments - Encounter Diagnoses This section includes the primary and secondary diagnoses documented for the Encounter. Date/Time Primary/Secondary Diagnosis Diagnosis Name Provider Source May 12, 2025 08:32 PM PRIMARY Carpal tunnel syndrome, left upper limb SNEHA TANG [facility] Plan of Treatment: Future Appointments (+ 6 months) and Future Tests (+/- 45 days) The Plan of Treatment section includes future care activities for the patient from all [place] [facility]. This section includes future appointments and future orders which are active, pending or scheduled. Future Appointments This section includes appointments that were scheduled to occur 6 months from the date of the Encounter, up to a maximum of 20 appointments. The data comes from all [facility]. Appointment Date/Time Appointment Type Appointme nt Facility Name May 11, 2025 01:30 PM AMBULATORY - MEDICINE [facility] May 17, 2025 02:40 PM AMBULATORY - MEDICINE [facility] May 19, 2025 11:00 AM AMBULAT[facility] - NONE [facility] May 23, 2025 02:00 PM AMBULATORY - PSYCHIATRY [facility] May 24, 2025 10:40 AM AMBULATORY - SURGERY [facility] Jun 08, 2025 10:40 AM AMBULATORY - SURGERY . [facility] Jun 15, 2025 10:15 AM AMBULATORY - MEDICINE [facility] Jun 21, 2025 02:30 PM AMBULATORY - PSYCHIATRY [facility] Aug 17, 2025 02:00 PM [facility] RENAL PANEL GREEN LI/HEP BLD/PLAS PLASMA SP [facility] Jun 15, 2025 12:00 AM Laboratory - Chemi stry Order MAGNESIUM GREEN LI/HEP BLD/PLAS PLASMA SP [facility] Lab Results: +/- 30 days [...] Type Comment May 10, 2025 11:02 AM [facility] BASIC METABOLIC PANEL PLASMA Specimen Type: PLASMA Comment: No hemolysis noted. Ordering Provider: ALE BALTAZAR Report Released Date/Time: May 09, 2025 12:21 PM Reporting Lab: [address] [address] Performing Lab: [address] [address] CREATININE 0.66 mg/dL L 0.7-1.3 UREA NITROGEN 4.1 mg/dL L 9.0-25.0 GLUCOSE 59 mg/dL L 72-99 SODIUM 139 meq/L 136-145 POTASSIUM 3.4 meq/L L 3.5-5 CHLORIDE 104 meq/L 98-107 CARBON DIOXIDE 28 meq/L 22-31 CALCIUM 9.1 mg/dL 8.4-10.4 EGFR (CKD-EPI 2020) 119.4 >60 May 10, 2025 11:02 AM [facility] CBC BLOOD Specimen Type: BLOOD No comment entered. Ordering Provider: ALE BALTAZAR Report Released Date/Time: May 09, 2025 12:21 PM Reporting Lab: [address] [address] Performing Lab: [address] [address] WBC 7.1 10*3/uL 3.6-11.2 RBC 3.92 10*6/uL [...] 05, 2024 11:55 AM VA-TOBACCO FORMER USER [facility] Tobacco Use History This section includes a history of the smoking, or tobacco-related health factors, that were collected on or before the date of the Encounter. The data comes from the [place] facility where the Encounter took place. 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 EPOXY FABRICATION RECEIVED [facility] May 07, 2023 06:21 AM ORYX DAILY TOBACCO MEDS REFUSED [facility] Oct 27, 2013 02:51 PM QUIT TOBACCO >7 YEARS AGO [facility] Jan 07, 2013 10:01 AM CURRENT TOBACCO USER [facility] Jan 07, 2013 10:01 AM TOBACCO MEDS OFFER ED BUT DECLINED [facility] Sep 18, 2011 12:08 PM QUIT TOBACCO IN TH E LAST 12 MONTHS [facility] Jul 25, 2011 03:33 PM CURRENT TOBACCO USER [facility] Jul 20, 2010 10:35 AM QUIT TOBACCO IN TH E LAST 12 MONTHS [facility] Advance Directives: All historical [...] May 07, 2023 ADVANCE DIRECTIVE DARLEEN ENRIQUEZ [facility] Encounter Notes: All associated encounter notes This section contains the clinical notes associated to the Encounter. Date/Time Encounter Note(s) Provider Source May 10, 2025 12:05 PM PLASTIC SURGERY NO TE: [facility] TITLE: PLASTIC SURGERY NOTE STANDARD TITLE: PLASTIC SURGERY NOTE DATE OF NOTE: MAY 10, 2025@12:05 ENTRY DATE: MAY 04, 2025@12:59:28 AUTHOR: SNEHA TANG EXP COSIGNER: ALE BALTAZAR URGENCY: STATUS: COMPLETED Plastic Surgery Clinic History and Physical Note May 10, 2025 Plastic Surgery Treatment History: -none S: This is a 44 year old RHD male with medical hx of TBI, anxiety, depression, tobacco use, depression, PTSD, and GERD who presents to clinic for preoperative appt for right carpal/cubital release with Dr Baltazar on 05/19/25. In the interval, patient reports no significant changes in his health. He states that at this time he would like to undergo the procedure to his left upper extremity first. In addition he does not want to have a procedure where he would be put to sleep. He continues to endorse numbness and tingling in all digits of his left hand. The patient is retired. He does not take any blood thinners. Denies fevers, chills, nausea, emesis, or SOB. Plastic Surgery History: No relevant Plastic Surgery history Allergies: NKDA Social History: No nicotine use, positive marijuana use, no alcohol use O: Temp: 98.1 F [36.7 C] (01/24/2025 12:43) Pulse Ox: Measurement DT POx (L/MIN)(%) 01/24/2025 16:51 98 01/24/2025 14:00 99 01/24/2025 10:41 98 01/11/2025 10:16 100 PULSE: 90 (01/24/2025 16:51) RESPIRATION: 18 (01/24/2025 16:51) BLOOD PRESSURE: 133/78 (01/24/2025 16:51) ROS ROS negative unless explicitly reported in the HPI PHYSICAL EXAM: NEURO: alert, oriented LUNGS: symmetric chest rise, no audible wheezing HEART: RRR ABDOMEN: soft, non-tender, non-distended EXT: WWP, flexors/extensors intact in bilateral upper extremities, sensation intact in all major nerve distributions to bilateral hands. Provocative testing negative to the left carpal and cubital tunnel sites. LABS: CHEM 7: SODIUM 135 L mEq/L 01/24/2025 12:04 POTASSIUM 2.9 L* mEq/L 01/24/2025 12:04 CHLORIDE 95 L mEq/L 01/24/2025 12:04 UREA NITROGEN 5.9 L mg/dL 01/24/2025 12:04 CREATININE 0.75 mg/dL 01/24/2025 12:04 CALCIUM 9.6 mg/dL 01/24/2025 12:04 CARBON DIOXIDE 26 mEq/L 01/24/2025 12:04 GLUCOSE 146 H mg/dL 01/24/2025 12:04 EGFR (CKD-EPI 2020) 114.8 01/24/2025 12:04 CBC: WBC 7.1 10*3/uL 05/10/2025 11:02 RBC [...] 12:04 ATYPICAL LYMPHOCYTES 7.9 % 01/24/2025 12:04 ASSESSMENT/PLAN: This is a 44-year-old [id number]-iasoylag male presenting to clinic for preoperative appointment. As patient does not want to undergo surgery to the right upper extremity, discussed with patient that based off of EMG and physical exam findings, we will be able to perform a left carpal tunnel release with local and MAC. Risks of the procedure including bleeding, infection, damage to surrounding structures, delayed healing, poor scarring, lack of improvement in symptoms, and need for further procedures was discussed. We went over postoperative activity restrictions along with surgical site care. All of the patient's questions were answered at length during the clinical encounter and the patient demonstrated understanding of the plan. The patient has agreed to proceeed. -We will see the patient for surgery Sneha Tang MD Plastic and Reconstructive Surgery /loyda/ Sneha Tang MD Resident, Plastic Surgery Signed: 05/10/2025 12:08 /loyda/ ALE BALTAZAR MD Staff Physician, Plastic Surgery Cosigned: 05/10/2025 12:21 SNEHA TANG [facility]
--- OUTSIDE RECORDS SUMMARY | 2025-06-13 11:57 | XMS_ITS ---
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 Name Role Phone [employer] Primary Care [...] Patient's Relationship to Policy [facility] CARINNC Jose NEGRETE ITY Nov 17, 2018 [id number] [phone] Jose CURRY PATIENT [facility] PRESCRIPT ION UHEAL TH Nov 17, 2018 [facility] [id number] Jose CURRY PATIENT [facility] NEGRE[facility] ITY Nov 17, 2018 [id number] [phone] Jose CURRY PATIENT [facility] PREFERRED PROVIDER ORGANIZAT ION (PPO) JOSE MONDRAGONUR ITY Nov 17, 2018 [id number] [phone] Jose CURRY PATIENT Selected Encounter This section includes the information on record at [place] for the Encounter. Date/Time Encounter Type Encounter Description Reason Provider Source Oct 09, 2024 10:57 AM Outpatient Encounter ANESTHESIA PRE/POST-OP CONSULT ICD-10-CM Z04.89 Encounter for examination and observation for oth reasons DAYSI BRAGA [facility] Encounter Template Text not used by [place] Assessments - Encounter Diagnoses This section includes the primary and secondary diagnoses documented for the Encounter. Date/Time Primary/Secondary Diagnosis Diagnosis Name Provider Source Oct 09, 2024 11:12 AM PRIMARY Encounter for examination and observation for oth reasons SARAH BRAGA [facility] Oct 09, 2024 11:12 AM SECONDARY Alcohol use, unspecified, uncomplicated SARAH BRAGA [facility] Oct 09, 2024 11:12 AM SECONDARY Carpal tunnel syndrome, bilateral upper limbs SARAH BRAGA [facility] Oct 09, 2024 11:12 AM SECONDARY Hypokalemia SARAH BRAGA [facility] Oct 09, 2024 11:12 AM SECONDARY Tobacco use SARAH BRGAA [facility] Plan of Treatment: Future Appointments (+ 6 months) and Future Tests (+/- 45 days) The Plan of Treatment section includes future care activities for the patient from all [facility]. This section includes future appointments and future orders which are active, pending or scheduled. Future Appointments This section includes appointments that were scheduled to occur 6 months from the date of the Encounter, up to a maximum of 20 appointments. The data comes from all [facility]. Appointment Date/Time Appointment Type Appointme nt Facility Name Nov 18, 2024 11:30 AM AMBULATORY - MEDICINE [facility] Nov 23, 2024 02:00 PM AMBULATORY - PSYCHIATRY [facility] Nov 26, 2024 10:00 AM AMBULATORY - MEDICINE [facility] Dec 15, 2024 02:00 PM AMBULATORY - NONE [facility] Dec 20, 2024 09:20 AM AMBULATORY - MEDICINE [facility] Jan 11, 2025 09:40 AM AMBULATORY - SURGERY [facility] Jan 24, 2025 10:40 AM AMBULATORY - MEDICINE [facility] Jan 24, 2025 12:35 PM AMBULATORY - MEDICINE [facility] Feb 21, 2025 12:30 PM AMBULATORY - PSYCHIATRY [facility] Mar 08, 2025 02:00 PM AMBULATORY - MEDICINE [facility] April 06, 2025 01:15 PM AMBULATORY - MEDICINE [facility] Active, Pending, and Scheduled Orders This section includes a listing of several types of active, pending, and scheduled orders, including clinic medications orders, diagnostic test orders, procedure orders and consult orders; where the start date of the order is 45 days before the date of the Encounter or 45 days after the date of theEncounter. The data comes from all [place] treatment facilities. Test Date/Time Test Type Test Details Facility Name Oct 03, 2024 12:00 AM Laboratory - Chemi stry Order BASIC METABOLIC PANEL GREEN LI/HEP BLD/PLAS PLASMA SP [facility] Oct 03, 2024 12:00 AM Laboratory - Chemi stry Order CBC BLOOD SP [facility] Social History: Smoking Status (Most current) and Tobacco Use (All prior to encounter date) This section includes the most current, and the historical, smoking and tobacco- related health factors from the [place] facility where the Encounter took place. Current Smoking Status This section includes the most current smoking, or tobacco-related health factor, from the AL facility where the Encounter took place. Date/Time Current Smoking Status Comment Facil ity Aug 05, 2024 11:55 AM VA-TOBACCO FORMER USER [facility] Tobacco Use History This section includes a history of the smoking, or tobacco-related health factors, that were collected on or before the date of the Encounter. The data comes from the [place] facility where the Encounter took place. 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 RECEIVED [facility] May 07, 2023 06:21 AM ORYX DAILY TOBACCO MEDS REFUSED [facility] Oct 27, 2013 02:51 PM QUIT TOBACCO >7 YEARS AGO [facility] Jan 07, 2013 10:01 AM CURRENT TOBACCO USER [facility] Jan 07, 2013 10:01 AM TOBACCO MEDS OFFER ED BUT DECLINED [facility] Sep 18, 2011 12:08 PM QUIT TOBACCO IN TH E LAST 12 MONTHS [facility] Jul 25, 2011 03:33 PM CURRENT TOBACCO USER [facility] Jul 20, 2010 10:35 AM QUIT TOBACCO IN TH E LAST 12 MONTHS [facility] Advance Directives: All historical and current Section Date Range: From patient's date of to the date document was created. This section includes ALL of a patient's completed or amended [place] Advance and Rescinded Directives. The entries below indicate that a directive exists for the patient, but an actual copy is not included with this document. The data comes from all [place] facilities. Date Advance Directives Provider Source May [...] requests to be taken off surgery rotation. [place] informed he will call to schedule an appointment when he is ready. I will stop following. Please submit a new consult if/when surgery is rescheduled. /loyda/ KELLY STEVEN PA-C Physician Faculty Head, Anesthesiology Signed: 10/26/2024 07:58 Receipt Acknowledged By: [...] normal. EK09/29/2024 19:14 Local Title: EKG CONSULT [facility] Standard Title: CARDIOLOGY DIAGNOSTIC STUDY CONSULT AUTHOR: CLINICAL,DEVICE PROXY SERVICE DOCUMENT IN [facility] SEE FULL REPORT IN [facility] SIGNATURE NOT REQUIRED SEE SIGNATURE IN [facility] ([facility]) AUTO-INSTRUMENT DIAGNOSIS Procedure: [id number] 12 Lead ECG Release Status: Released Off-Line Verified Date Verified: Sep 29, 2024@19:14:31 29582.2 Ventricular Rate: 111 BPM 15461.3 Atrial Rate: 111 BPM 25174.4 P-R Interval: 134 ms 39299.5 QRS Duration: 92 ms 37836.6 Q-T Interval: 344 ms 45456 QTC Calculation(Bazett)467 ms 59088.12 Calculated P Boyce: 69 degrees 07147.13 Calculated R Boyce: 59 degrees 02639.14 Calculated T Boyce: 38 degrees Sinus tachycardia Otherwise normal ECG [...] Test Data available LOCAL TITLE: [facility] T[facility]: CONSULT DATE OF NOTE: OCT [...] only. ECG Date Verified: Sep 29, 2024@19:14:31 05989.2 Ventricular Rate: 111 BPM 79458.3 Atrial Rate: 111 BPM 31054.4 P-R Interval: 134 ms 03527.5 QRS Duration: 92 ms 29339.6 Q-T Interval: 344 ms 49276 QTC Calculation(Bazett)467 ms 17656.12 Calculated P Boyce: 69 degrees 29218.13 Calculated R Boyce: 59 degrees 52894.14 Calculated T Boyce: 38 degrees Sinus tachycardia Otherwise normal ECG When compared with ECG of 15-MAR-2024 12:35, Nonspecific T wave abnormality no longer evident in Anterior leads ECG Date Verified: Mar 15, 2024@12:50:36 14430.2 Ventricular Rate: 88 BPM 93655.3 Atrial Rate: 88 BPM 19482.4 P-R Interval: 144 ms 61336.5 QRS Duration: 100 ms 09223.6 Q-T Interval: 384 ms 60115 QTC Calculation(Bazett)464 ms 97126.12 Calculated P Boyce: 40 degrees 21103.13 Calculated R Boyce: 12 degrees 83606.14 Calculated T Boyce: 13 degrees Normal sinus rhythm 48-hour Ambulatory [...] patient's complaint of palpitations. Diagnosis and/or Impression: [place] is a 44 yo with a past [...] LIST 1) Low back pain (SNOMED CT 364853014) 2) Traumatic brain injury with no loss of consciousness (SNOMED CT 323059853) 3) Acute posttraumatic stress disorder following combat (SNOMED CT 096421474) 4) Concussion (ICD-9-CM 850.9) 5) Anxiety * (ICD-9-CM 300.00/300.09) 6) Depression * (ICD-9-CM 311./300.4) 7) Attention-deficit hyperactivity disorder * 8) Unemployment 9) Palpitations (ICD-9-CM 785.1) 10) Routine General Medical Examination at a Health Care Facility * (ICD-9-CM V70.0) 11) Lumbosacral radiculopathy (SNOMED CT 5691384) 12) Tobacco use 13) Pain 14) Abnormal blood pressure 15) Chronic depression 16) Admits alcohol use 17) Insomnia 18) Alcohol abuse 19) Hypokalemia 20) Posttraumatic stress disorder 21) Bilateral carpal tunnel syndrome REVIEW OF SYSTEMS/PAST MEDICAL HISTORY RESPIRATORY for: - Sleep apnea - Asthma - COPD CARDIAC for: - Hypertension,, ELEVATED BP W/O DIAGNOSIS OF HTN - Hyperlipidemia - Myocardial infarction - Coronary artery disease - Heart failure - Valvular disease - Atrial fibrillation/flutter PSYCH/CENTRAL NERVOUS for: - Depression - Anxiety + Post-traumatic stress disorder - Cerebral vascular accident - Seizures + TBI + ADHD ENDOCRINE for: - Diabetes - Hypothyroid + HYPOKALEMIA, H/O RENAL for: - Chronic kidney disease - Nephrolithiasis GI for: - GERD - Liver disease - GI bleed VASCULAR/HEMATOLOGY/ONCOLOG Y for: - Anemia - Thrombocytopenia - Bleeding disorders MUSCULOSKELETAL/SKIN/PERIPH ERAL NERVOUS for: - Obesity - Arthritis/Degenerative joint disease - Rheumatoid arthritis - Neuropathy /REPRODUCTIVE for: - Prostate hypertrophy HABITS Tobacco : [...] 10/11/2024 07:40 /loyda/ KELLY STEVEN PA-C Physician Faculty Head, Anesthesiology 10/12/2024 14:45 /loyda/ LON RODRIGUEZ RN Case Manager, Plastic Surgery 10/15/2024 ADDENDUM STATUS: COMPLETED I spoke with Mr. Curry today. He denies any cardiac or pulmonary issues. No CP. He is able to walk up 2 flights of stairs/walk 2 blocks/vaccuum, etc without dyspnea. He may proceed as planned. /loyda/ KELLY STEVEN PA-C Physician Faculty Head, Anesthesiology Signed: 10/15/2024 10:11 Receipt Acknowledged By: 10/22/2024 11:38 /loyda/ LON RODRIGUEZ RN Case Manager, Plastic Surgery KELLY STEVEN [facility] Oct 15, 2024 10:09 [...] as planned. /loyda/ KELLY STEVEN PA-C Physician Faculty Head, Anesthesiology Signed: 10/15/2024 10:11 Receipt Acknowledged By: 10/22/2024 11:38 /saranya RODRIGUEZ RN Case Manager, Plastic Surgery --- [...] normal. EK09/29/2024 19:14 Local Title: EKG CONSULT [facility] Standard Title: CARDIOLOGY DIAGNOSTIC STUDY CONSULT AUTHOR: CLINICAL,DEVICE PROXY SERVICE DOCUMENT IN [facility] SEE FULL REPORT IN [facility] SIGNATURE NOT REQUIRED SEE SIGNATURE IN [facility] ([facility] E[facility]) AUTO-INSTRUMENT DIAGNOSIS Procedure: [id number] 12 Lead ECG Release Status: Released Off-Line Verified Date Verified: Sep 29, 2024@19:14:31 83728.2 Ventricular Rate: 111 BPM 31223.3 Atrial Rate: 111 BPM 50115.4 P-R Interval: 134 ms 05196.5 QRS Duration: 92 ms 04354.6 Q-T Interval: 344 ms 81077 QTC Calculation(Bazett)467 ms 22945.12 Calculated P Boyce: 69 degrees 17766.13 Calculated R Boyce: 59 degrees 74968.14 Calculated T Boyce: 38 degrees Sinus tachycardia Otherwise normal ECG [...] Stress test: No Stress Test Data available [facility] TITLE: E-CONSULT CARDIOLOGY OUTPT ST STANDARD TITLE: [...] only. ECG Date Verified: Sep 29, 2024@19:14:31 27474.2 Ventricular Rate: 111 BPM 67015.3 Atrial Rate: 111 BPM 71676.4 P-R Interval: 134 ms 27503.5 QRS Duration: 92 ms 55666.6 Q-T Interval: 344 ms 79131 QTC Calculation(Bazett)467 ms 28528.12 Calculated P Boyce: 69 degrees 69129.13 Calculated R Boyce: 59 degrees 01553.14 Calculated T Boyce: 38 degrees Sinus tachycardia Otherwise normal ECG When compared with ECG of 15-MAR-2024 12:35, Nonspecific T wave abnormality no longer evident in Anterior leads ECG Date Verified: Mar 15, 2024@12:50:36 13640.2 Ventricular Rate: 88 BPM 54519.3 Atrial Rate: 88 BPM 81371.4 P-R Interval: 144 ms 17159.5 QRS Duration: 100 ms 11829.6 Q-T Interval: 384 ms 88602 QTC Calculation(Bazett)464 ms 63164.12 Calculated P Boyce: 40 degrees 46233.13 Calculated R Boyce: 12 degrees 36130.14 Calculated T Boyce: 13 degrees Normal sinus rhythm 48-hour Ambulatory [...] patient's complaint of palpitations. Diagnosis and/or Impression: is a 44 yo with a past [...] LIST 1) Low back pain (SNOMED CT 447002529) 2) Traumatic brain injury with no loss of consciousness (SNOMED CT 628302291) 3) Acute posttraumatic stress disorder following combat (SNOMED CT 148084358) 4) Concussion (ICD-9-CM 850.9) 5) Anxiety * (ICD-9-CM 300.00/300.09) 6) Depression * (ICD-9-CM 311./300.4) 7) Attention-deficit hyperactivity disorder * 8) Unemployment 9) Palpitations (ICD-9-CM 785.1) 10) Routine General Medical Examination at a Health Care Facility * (ICD-9-CM V70.0) 11) Lumbosacral radiculopathy (SNOMED CT 2615717) 12) Tobacco use 13) Pain 14) Abnormal blood pressure 15) Chronic depression 16) Admits alcohol use 17) Insomnia 18) Alcohol abuse 19) Hypokalemia 20) Posttraumatic stress disorder 21) Bilateral carpal tunnel syndrome REVIEW OF SYSTEMS/PAST MEDICAL HISTORY RESPIRATORY for: - Sleep apnea - Asthma - COPD CARDIAC for: - Hypertension,, ELEVATED BP W/O DIAGNOSIS OF HTN - Hyperlipidemia - Myocardial infarction - Coronary artery disease - Heart failure - Valvular disease - Atrial fibrillation/flutter PSYCH/CENTRAL NERVOUS for: - Depression - Anxiety + Post-traumatic stress disorder - Cerebral vascular accident - Seizures + TBI + ADHD ENDOCRINE for: - Diabetes - Hypothyroid + HYPOKALEMIA, H/O RENAL for: - Chronic kidney disease - Nephrolithiasis GI for: - GERD - Liver disease - GI bleed VASCULAR/HEMATOLOGY/ONCOLOG Y for: - Anemia - Thrombocytopenia - Bleeding disorders MUSCULOSKELETAL/SKIN/PERIPH ERAL NERVOUS for: - Obesity - Arthritis/Degenerative joint disease - Rheumatoid arthritis - Neuropathy /REPRODUCTIVE for: - Prostate hypertrophy HABITS Tobacco : [...] 10/11/2024 07:40 /loyda/ KELLY STEVEN PA-C Physician Faculty Head, Anesthesiology 10/12/2024 14:45 /loyda/ LON RODRIGUEZ RN Case Manager, Plastic Surgery KELLY STEVEN [facility] Oct 09, 2024 10:57 AM CONSULT: [...] C Ab HCV Ab (STL) Nonreactive S/CO (06/21/23 06:00) DIAGNOSTICS CXR: Impression for CHEST PORTABLE, 02/21/21, case [id number] The lungs are clear without pneumothorax, large pleural effusion, focal consolidation. The heart size is normal. Mediastinal contours are normal. EK09/29/2024 19:14 Local Title: EKG CONSULT [facility] Standard Title: CARDIOLOGY DIAGNOSTIC STUDY CONSULT AUTHOR: CLINICAL,DEVICE PROXY SERVICE DOCUMENT IN [facility] SEE FULL REPORT IN [facility] SIGNATURE NOT REQUIRED SEE SIGNATURE IN [facility] ([facility] [facility]) AUTO-INSTRUMENT DIAGNOSIS Procedure: [id number] 12 Lead ECG Release Status: Released Off-Line Verified Date Verified: Sep 29, 2024@19:14:31 82181.2 Ventricular Rate: 111 BPM 13983.3 Atrial Rate: 111 BPM 19240.4 P-R Interval: 134 ms 24358.5 QRS Duration: 92 ms 93515.6 Q-T Interval: 344 ms 80252 QTC Calculation(Bazett)467 ms 59895.12 Calculated P Boyce: 69 degrees 38507.13 Calculated R Boyce: 59 degrees 51626.14 Calculated T Boyce: 38 degrees Sinus tachycardia Otherwise normal ECG [...] Data available LOCAL TITLE: E-CONSULT CARDIOLOGY OUTPT [facility] STANDARD [...] only. ECG Date Verified: Sep 29, 2024@19:14:31 46495.2 Ventricular Rate: 111 BPM 01155.3 Atrial Rate: 111 BPM 78186.4 P-R Interval: 134 ms 37386.5 QRS Duration: 92 ms 55011.6 Q-T Interval: 344 ms 50150 QTC Calculation(Bazett)467 ms 80091.12 Calculated P Boyce: 69 degrees 09143.13 Calculated R Boyce: 59 degrees 44311.14 Calculated T Boyce: 38 degrees Sinus tachycardia Otherwise normal ECG When compared with ECG of 15-MAR-2024 12:35, Nonspecific T wave abnormality no longer evident in Anterior leads ECG Date Verified: Mar 15, 2024@12:50:36 38396.2 Ventricular Rate: 88 BPM 42637.3 Atrial Rate: 88 BPM 91703.4 P-R Interval: 144 ms 84898.5 QRS Duration: 100 ms 37766.6 Q-T Interval: 384 ms 92456 QTC Calculation(Bazett)464 ms 74260.12 Calculated P Boyce: 40 degrees 37132.13 Calculated R Boyce: 12 degrees 68869.14 Calculated T Boyce: 13 degrees Normal sinus rhythm 48-hour Ambulatory [...] patient's complaint of palpitations. Diagnosis and/or Impression: [place] is a 44 yo with a past [...] LIST 1) Low back pain (SNOMED CT 500771256) 2) Traumatic brain injury with no loss of consciousness (SNOMED CT 382072773) 3) Acute posttraumatic stress disorder following combat (SNOMED CT 651627370) 4) Concussion (ICD-9-CM 850.9) 5) Anxiety * (ICD-9-CM 300.00/300.09) 6) Depression * (ICD-9-CM 311./300.4) 7) Attention-deficit hyperactivity disorder * 8) Unemployment 9) Palpitations (ICD-9-CM 785.1) 10) Routine General Medical Examination at a Health Care Facility * (ICD-9-CM V70.0) 11) Lumbosacral radiculopathy (SNOMED CT 9321829) 12) Tobacco use 13) Pain 14) Abnormal blood pressure 15) Chronic depression 16) Admits alcohol use 17) Insomnia 18) Alcohol abuse 19) Hypokalemia 20) Posttraumatic stress disorder 21) Bilateral carpal tunnel syndrome REVIEW OF SYSTEMS/PAST MEDICAL HISTORY RESPIRATORY for: - Sleep apnea - Asthma - COPD CARDIAC for: - Hypertension,, ELEVATED BP W/O DIAGNOSIS OF HTN - Hyperlipidemia - Myocardial infarction - Coronary artery disease - Heart failure - Valvular disease - Atrial fibrillation/flutter PSYCH/CENTRAL NERVOUS for: - Depression - Anxiety + Post-traumatic stress disorder - Cerebral vascular accident - Seizures + TBI + ADHD ENDOCRINE for: - Diabetes - Hypothyroid + HYPOKALEMIA, H/O RENAL for: - Chronic kidney disease - Nephrolithiasis GI for: - GERD - Liver disease - GI bleed VASCULAR/HEMATOLOGY/ONCOLOG Y for: - Anemia - Thrombocytopenia - Bleeding disorders MUSCULOSKELETAL/SKIN/PERIPH ERAL NERVOUS for: - Obesity - Arthritis/Degenerative joint disease - Rheumatoid arthritis - Neuropathy /REPRODUCTIVE for: - Prostate hypertrophy HABITS Tobacco : [...] 10/09/2024 11:12 Receipt Acknowledged By: 10/11/2024 07:40 /es/ KELLY STEVEN PA-C Physician Faculty Head, Anesthesiology 10/12/2024 14:45 /loyda/ LON RODRIGUEZ RN Case Manager, Plastic Surgery 10/15/2024 ADDENDUM STATUS: COMPLETED I spoke with Mr. Curry today. He denies any cardiac or pulmonary issues. No CP. He is able to walk up 2 flights of stairs/walk 2 blocks/vaccuum, etc without dyspnea. He may proceed as planned. /loyda/ KELLY STEVEN PA-C Physician Faculty Head, Anesthesiology Signed: 10/15/2024 10:11 Receipt Acknowledged By: [...] is rescheduled. /loyda/ KELLY STEVEN PA-C Physician Faculty Head, Anesthesiology Signed: 10/26/2024 07:58 SARAH BRAGA [facility]
--- OUTSIDE RECORDS SUMMARY | 2025-06-13 11:57 | XMS_ITS | Encounter Summary ---
Author Name Department of [place] Organization [place] Address [address] [place] [address] Care Team Providers Care Claim Inspector Name Role Phone JOSUE NGO Primary Care [...] Policy Cano [facility] Jose NEGRETE ITY Nov 17, 2018 [id number] [phone] Jose TABARES PATIENT [facility] PRESCRIPT ION UHEAL Nov 17, 2018 [facility] [id number] [phone] Jose TABARES PATIENT [facility] Jose NEGRETE ITY Nov 17, 2018 [id number] [phone] Jose TABARES PATIENT [facility] PREFERRED PROVIDER ORGANIZAT ION (PPO) WHEJEROD Garcia SECUR ITY Nov 17, 2018 [id number] [phone] Jose TABARES PATIENT Selected Encounter This section includes the information on record at [place] for the Encounter. Date/Time Encounter Type Encounter Description Reason Provider Source May 19, 2025 01:53 PM Outpatient Encounter ADMIN PAT ACTIVTIES (MASNONCT) HUSSEIN NORIEGA [facility] Encounter Template Text not used by VA Plan of Treatment: Future Appointments (+ 6 months) and Future Tests (+/- 45 days) The Plan of Treatment section includes future care activities for the patient from all [place] [facility]. This section includes future appointments and future orders which are active, pending or scheduled. Future Appointments This section includes appointments that were scheduled to occur 6 months from the date of the Encounter, up to a maximum of 20 appointments. The data comes from all [facility]. Appointment Date/Time Appointment Type Appointme nt Facility Name May 23, 2025 02:00 PM AMBULATORY - PSYCHIATRY [facility] May 24, 2025 10:40 AM AMBULATORY - SURGERY [facility] Jun 08, 2025 10:40 AM AMBULATORY - SURGERY [facility] Jun 15, 2025 10:15 AM AMBULATORY - MEDICINE [facility] Jun 21, 2025 02:30 PM AMBULATORY - PSYCHIATRY [facility] Aug 17, 2025 02:00 PM AMBULATORY - MEDICINE [facility] Active, Pending, and Scheduled Orders This section includes a listing of several types of active, pending, and scheduled orders, including clinic medications orders, diagnostic test orders, procedure orders and consult orders; where the start date of the order is 45 days before the date of the Encounter or 45 days after the date of theEncounter. The data comes from all [facility]. Test Date/Time Test Type Test Details Facility Name Jun 15, 2025 12:00 AM Laboratory - Chemi stry Order RENAL PANEL GREEN LI/HEP BLD/PLAS PLASMA SP [facility] Jun 15, 2025 12:00 AM Laboratory - Chemi stry Order MAGNESIUM GREEN LI/HEP BLD/PLAS PLASMA SP [facility] Lab Results: +/- 30 days of [...] Type Comment May 10, 2025 11:02 AM [facility] BASIC METABOLIC PANEL PLASMA Specimen Type: PLASMA Comment: No hemolysis noted. Ordering Provider: ALE BALTAZAR Report Released Date/Time: May 09, 2025 12:21 PM Reporting Lab: [address] [id number] Performing Lab: [address] [id number] CREATININE 0.66 mg/dL L 0.7-1.3 UREA NITROGEN 4.1 mg/dL L 9.0-25.0 GLUCOSE 59 mg/dL L 72-99 SODIUM 139 meq/L 136-145 POTASSIUM 3.4 meq/L L 3.5-5 CHLORIDE 104 meq/L 98-107 CARBON DIOXIDE 28 meq/L 22-31 CALCIUM 9.1 mg/dL 8.4-10.4 EGFR (CKD-EPI 2020) 119.4 >60 May 10, 2025 11:02 AM [facility] CBC BLOOD Specimen Type: BLOOD No comment entered. Ordering Provider: ALE BALTAZAR Report Released Date/Time: May 09, 2025 12:21 PM Reporting Lab: [facility] [address] [place] [id number] Performing Lab: [address] [id number] WBC 7.1 10*3/uL 3.6-11.2 RBC 3.92 10*6/uL [...] 130/97 mm[Hg] 16 /min 100 % [address] [facility] N May 19, 2025 11:55 AM 98.3 F 92 /min 130/94 mm[Hg] 14 /min 100 % 5 71 in 143.9 lb 20 [facility] N Social History: Smoking Status (Most current) and Tobacco Use (All prior to encounter date) This section includes the most current, and the historical, smoking and tobacco- related health factors from the [place] facility where the Encounter took place. Current Smoking Status This section includes the most current smoking, or tobacco-related health factor, from the [place] facility where the Encounter took place. Date/Time Current Smoking Status Comment Devorah su Aug 05, 2024 11:55 AM VA-TOBACCO FORMER USER [facility] Tobacco Use History This section includes a history of the smoking, or tobacco-related health factors, that were collected on or before the date of the Encounter. The data comes from the [place] facility where the Encounter took place. Date/Time [...] 07, 2023 06:21 AM ORYX DAILY TOBACCO POTLINE MONITOR RECEIVED [facility] May 07, 2023 [...] E LAST 12 MONTHS [facility] Jul 25, 2011 03:33 PM CURRENT TOBACCO USER [facility] Jul 20, 2010 10:35 AM QUIT TOBACCO IN TH E LAST 12 MONTHS [facility] Advance Directives: All historical and current Section Date Range: From patient's date of to the date document was created. This section includes ALL of a patient's completed or amended [place] Advance and Rescinded Directives. The entries below indicate that a directive exists for the patient, but an actual copy is not included with this document. The data comes from all [place] facilities. Date Advance Directives Provider Source May 07, 2023 ADVANCE DIRECTIVE DARLEEN ENRIQUEZ [facility] Encounter Notes: All associated encounter notes This section contains the clinical notes associated to the Encounter. Date/Time Encounter Note(s) Provider Source May 19, 2025 01:53 PM ANESTHESIOLOGY ASHLEY WSHEET: LOCAL TITLE: PACU POST-OP FLOWSHEET [facility] STANDARD TITLE: ANESTHESIOLOGY FLOWSHEET DATE OF NOTE: MAY 19, 2025@13:53 ENTRY DATE: MAY 19, 2025@13:53:34 AUTHOR: HUSSEIN NORIEGA COSIGNER: URGENCY: STATUS: COMPLETED Patient: ELEONORA TABARES SSN: [id number] Anesthesia Method: - Monitored 05/19/2025 12:45 (Primary), Level Of Consciousness: Sedated, Monitors Applied, Oxygen Therapy: Mask, EtCO2 Verified: Waveform Positioning: Head Neutral, Head And Neck In Alignment With Spine, Pressure Points Padded & Checked, Eyes, Ears And Nose Free Of Pressure ASA Number: 2 Procedure: left carpal tunnel release Diagnosis: Carpal tunnel syndrome, left upper limb left carpal tunnel syndrome PACU Drugs: PACU Fluids: Anesthesia Procedure: ----- Procedure 05/19/2025 12:59 Site: Upper Arm, Laterality: Left, Tourniquet Pressure (mmHg): 250 12:59 Tourniquet Inflated 13:03 Tourniquet Deflated Total Time: 04:38 Date of Operation: 05/19/2025 Anesthesia Care End: 05/19/2025 13:29 Resources: Aquacel foam placed on crystal prominence to protect skin during surgery Staff: --------- ALE BALTAZAR, SURGEON ALE BALTAZAR, ATT. SURGEON RUSS BAGLEY, Holding Nurse TORO RAMOS PRIN. ANES. LIU, LUCIA Z, ANES. SUPER. HUSSEIN NORIEGA, Post-Op Nurse Surgery Start Time: 05/19/2025 12:59 Procedure End Time: Moderate Sedation Care End: /loyda/ NAVI BARNARD, RN RN Signed: 05/19/2025 13:53 HUSSEIN NORIEGA [facility]
--- OUTSIDE RECORDS SUMMARY | 2025-06-13 11:58 | XMS_ITS ---
Author Name Department of [place] Affairs [place] Organization [facility] Address [address] [place] [address] Care Team Providers Care Diabetes Territory Manager Name Role Phone JOSUE SCHILLING Primary Care [...] Policy Cano [facility] Jose NEGRETE ITY Nov 17, 2018 [id number] [phone] Jose TABARES PATIENT [facility] PRESCRIPT ION UHEAL TH Nov 17, 2018 [facility] [id number] Jose TABARES PATIENT [facility] Jose NEGRETE ITY Nov 17, 2018 [id number] [phone] Jose TABARES PATIENT [facility] PREFERRED PROVIDER ORGANIZAT ION (PPO) JOSE Garcia SECUR ITY Nov 17, 2018 [id number] [phone] Jose TABARES PATIENT Selected Encounter This section includes the information on record at [place] for the Encounter. Date/Time Encounter Type Encounter Description Reason Provider Source Aug 18, 2024 11:00 AM OFFICE O/P EST MOD 30 MIN PRIMARY CARE/MEDICINE ICD-10-CM R03.0 Elevated blood-pressure reading, w/o diagnosis of htn JOSUE SCHILLING Tatyana Encounter Template Text not used by [place] Assessments - Encounter Diagnoses This section includes the primary and secondary diagnoses documented for the Encounter. Date/Time Primary/Secondary Diagnosis Diagnosis Name Provider Source Aug 18, 2024 11:22 AM PRIMARY Elevated blood-pressure reading, w/o diagnosis of htn [facility] Aug 18, 2024 11:22 AM SECONDARY Carpal tunnel syndrome, bilateral upper limbs [facility] Aug 18, 2024 11:22 AM SECONDARY Other specified depressive episodes [facility] Aug 18, 2024 11:22 AM SECONDARY Post-traumatic stress disorder, unspecified [facility] Aug 18, 2024 11:22 AM SECONDARY Tobacco use [facility] Plan of Treatment: Future Appointments (+ 6 months) and Future Tests (+/- 45 days) The Plan of Treatment section includes future care activities for the patient from all [facility]. This section includes future appointments and future orders which are active, pending or scheduled. Future Appointments This section includes appointments that were scheduled to occur 6 months from the date of the Encounter, up to a maximum of 20 appointments. The data comes from all [place] treatment [facility]. Appointment Date/Time Appointment Type Appointme nt Facility Name Sep 06, 2024 02:30 PM AMBULATORY - PSYCHIATRY [facility] Sep 28, 2024 11:40 AM AMBULATORY - SURGERY [facility] Nov 18, 2024 11:30 AM AMBULATORY - MEDICINE [facility] Nov 23, 2024 02:00 PM AMBULATORY - PSYCHIATRY [facility] Nov 26, 2024 10:00 AM AMBULATORY - MEDICINE [facility] Dec 15, 2024 02:00 PM AMBULATORY - NONE . [facility] Dec 20, 2024 09:20 AM AMBULATORY - MEDICINE [facility] Jan 11, 2025 09:40 AM AMBULATORY - SURGERY [facility] Jan 24, 2025 10:40 AM AMBULATORY - MEDICINE [facility] Jan 24, 2025 12:35 PM AMBULATORY - MEDICINE [facility] Social History: Smoking Status (Most current) and [...] 2023 11:00 AM VA-TOBACCO USER SOME DAYS [facility] Tobacco Use History This section includes a history of the smoking, or tobacco-related health factors, that were collected on or before the date of the Encounter. The data comes from the [place] facility where the Encounter took place. Date/Time Smoking Status/Tobacco Use Comment F acility Jun 05, 2023 11:00 AM VA-TOBACCO USE 5 TO 15 YEARS [facility] Jun 05, 2023 11:00 AM VA-TOBACCO USE ADVICE [facility] Jun 05, 2023 11:00 AM VA-TOBACCO USE INVESTIGATIONS MANAGER NO [facility] Jun 05, 2023 11:00 AM VA-TOBACCO USE MED NO [facility] Jun 05, 2023 11:00 AM VA-TOBACCO USER SOME DAYS [facility] April 16, 2022 03:00 PM VA-TOBACCO FORMER USER [facility] April 16, 2022 03:00 PM VA-TOBACCO QUIT < 1 YEAR [facility] Nov 14, 2020 09:38 AM VA-TOBACCO USE 1 TO < 5 YEARS [facility] Nov 14, 2020 09:38 AM VA-TOBACCO USE ADVICE [facility] Nov 14, 2020 09:38 AM VA-TOBACCO USE INVESTIGATIONS MANAGER NO [facility] Nov 14, 2020 09:38 AM VA-TOBACCO USE MED NO [facility] Nov 14, 2020 09:38 AM VA-TOBACCO USE WI 30 MIN OF WAKEUP [facility] Nov 14, 2020 09:38 AM VA-TOBACCO USER EVERY DAY [facility] Feb 08, 2019 10:08 AM VA-TOBACCO FORMER USER [facility] Feb 08, 2019 10:08 AM VA-TOBACCO QUIT 1 TO < 5 YRS [facility] Oct 17, 2017 03:25 PM CURRENT TOBACCO USER [facility] Oct 17, 2017 03:25 PM CURRENT TOBACCO US ER (NOT READY TO QUIT) [facility] Oct 17, 2017 03:25 PM TOBACCO CESSATION REFERRAL DECLINED [facility] Oct 17, 2017 03:25 PM TOBACCO MEDS OFFER ED BUT DECLINED [facility] Oct 17, 2017 03:25 PM TOBACCO USER OFFERED MEDS [facility] Jul 02, 2017 03:19 PM CURRENT TOBACCO USER [facility] Advance Directives: All historical and current Section [...] ADVANCE DIRECTIVE DARLEEN ENRIQUEZ [facility] Encounter Notes: All associated encounter notes This [...] this VA (local) and dispensed from another [place] or Do[place] facility (remote) as well as inpatient orders (local pending and active), local clinic medications, locally documented non-VA medications, and local prescriptions that have or been discontinued in the past 90 days.) with the patient and/or his/her care-insulation packer. Handwritten corrections, additions and/or deletions were made to the list, as appropriate. Corrected Outpatient Medication List was provided to the patient/caregiver. /loyda/ Josue Schilling MD Staff Physician Signed: 08/18/2024 11:23 JOSUE SCHILLING [facility] Aug 18, 2024 09:46 AM TELEHEALTH [...] this VA (local) and dispensed from another [place] or Do[place] facility (remote) as well as inpatient orders (local pending and active), local clinic medications, locally documented non-VA medications, and local prescriptions that have or been discontinued in the past 90 days.) with the patient and/or his/her care-insulation packer. Handwritten corrections, additions and/or deletions were made to the list, as appropriate. Corrected Outpatient Medication List was provided to the patient/caregiver. /loyda/ Josue Schilling MD Staff Physician Signed: 08/18/2024 11:23 08/18/2024 ADDENDUM STATUS: COMPLETED RTC 6 month visit /saranya Schilling MD Staff Physician Signed: 08/18/2024 11:24 Receipt Acknowledged By: * AWAITING SIGNATURE * [facility]
--- OUTSIDE RECORDS SUMMARY | 2025-06-13 11:58 | XMS_ITS | Encounter Summary ---
Author Name Department of Vetera Affairs ([place]) Organization [facility]) Address [address] [place] [address] Care Team Providers Care Pastor Name Role Phone JOSUE NGO Primary Care [...] Policy Cano [facility] Jose NEGRETE ITY Nov 17, 2018 [id number] [phone] Jose TABARES PATIENT [facility] PRESCRIPT ION UHEAL TH Nov 17, 2018 [facility] [id number] Jose TABARES PATIENT [facility] MENTAL [facility] Jose NEGRETE ITY Nov 17, 2018 [id number] [phone] [facility] PREFERRED PROVIDER ORGANIZAT ION (PPO) JOSE Garcia SECUR ITY Nov 17, 2018 [id number] [phone] Jose TABARES PATIENT Selected Encounter This section includes the information on record at [place] for the Encounter. Date/Time Encounter Type Encounter Description Reason Provider Source Jul 05, 2024 01:30 PM OFFICE O/P EST HI 40 MIN [facility] - IND ICD-10-CM Z72.0 Tobacco use TERRA QUIÑONES [facility] Encounter Template Text not used by [place] Assessments - Encounter Diagnoses This section includes the primary and secondary diagnoses documented for the Encounter. Date/Time Primary/Secondary Diagnosis Diagnosis Name Provider Source Jul 05, 2024 02:31 PM PRIMARY Tobacco use TERRA QUIÑONES [facility] Jul 05, 2024 02:31 PM SECONDARY Alcohol use, unspecified with intoxication, uncomplicated TERRA QUIÑONES [facility] Jul 05, 2024 02:31 PM SECONDARY Alcohol use, unspecified, uncomplicated TERRA QUIÑONES [facility] Jul 05, 2024 02:31 PM SECONDARY Other specified depressive episodes TERRA QUIÑONES [facility] Jul 05, 2024 02:31 PM SECONDARY Post-traumatic stress disorder, unspecified TERRA QUIÑONES [facility] Plan of Treatment: Future Appointments (+ 6 months) and Future Tests (+/- 45 days) The Plan of Treatment section includes future care activities for the patient from all [facility]. This section includes future appointments and future orders which are active, pending or scheduled. Future Appointments This section includes appointments that were scheduled to occur 6 months from the date of the Encounter, up to a maximum of 20 appointments. The data comes from all [place] treatment [facility]. Appointment Date/Time Appointment Type Appointme nt Facility Name Aug 06, 2024 12:30 PM AMBULATORY - PSYCHIATRY [facility] Aug 18, 2024 11:00 AM AMBULATORY - MEDICINE [facility] Sep 06, 2024 02:30 PM AMBULATORY - PSYCHIATRY [facility] Sep 28, 2024 11:40 AM AMBULATORY - SURGERY [facility] Nov 18, 2024 11:30 AM AMBULATORY - MEDICINE [facility] Nov 23, 2024 02:00 PM AMBULATORY - PSYCHIATRY [facility] Nov 26, 2024 10:00 AM AMBULATORY - MEDICINE [facility] Dec 15, 2024 02:00 PM AMBULATORY - NONE [facility] Dec 20, 2024 09:20 AM AMBULATORY - MEDICINE [facility] Social History: Smoking Status (Most current) and Tobacco Use (All prior to encounter date) This section includes the most current, and the historical, smoking and tobacco- related health factors from the [place] facility where the Encounter took place. Current Smoking Status This section includes the most current smoking, or tobacco-related health factor, from the [place] facility where the Encounter took place. Date/Time Current Smoking Status Comment Facil ity Jun 05, 2023 11:00 AM VA-TOBACCO USER SOME DAYS [facility] Tobacco Use History This section includes a history of the smoking, or tobacco-related health factors, that were collected on or before the date of the Encounter. The data comes from the [place] facility where the Encounter took place. Date/Time Smoking Status/Tobacco Use Comment F acility Jun 05, 2023 11:00 AM VA-TOBACCO USE 5 TO 15 YEARS [facility] Jun 05, 2023 11:00 AM VA-TOBACCO USE ADVICE [facility] Jun 05, 2023 11:00 AM VA-TOBACCO USE VICE CHANCELLOR NO [facility] Jun 05, 2023 11:00 AM VA-TOBACCO USE MED NO [facility] Jun 05, 2023 11:00 AM VA-TOBACCO USER SOME DAYS [facility] April 16, 2022 03:00 PM VA-TOBACCO FORMER USER [facility] April 16, 2022 03:00 PM VA-TOBACCO QUIT < 1 YEAR [facility] Nov 14, 2020 09:38 AM VA-TOBACCO USE 1 TO < 5 YEARS [facility] Nov 14, 2020 09:38 AM VA-TOBACCO USE ADVICE [facility] Nov 14, 2020 09:38 AM VA-TOBACCO USE VICE CHANCELLOR NO [facility] Nov 14, 2020 09:38 AM VA-TOBACCO USE MED NO [facility] Nov 14, 2020 09:38 AM VA-TOBACCO USE WI 30 MIN OF WAKEUP [facility] Nov 14, 2020 09:38 AM VA-TOBACCO USER EVERY DAY [facility] Feb 08, 2019 10:08 AM VA-TOBACCO FORMER USER [facility] Feb 08, 2019 10:08 AM VA-TOBACCO QUIT 1 TO < 5 YRS [facility] Oct 17, 2017 03:25 PM CURRENT TOBACCO USER [facility] Oct 17, 2017 03:25 PM CURRENT TOBACCO US ER (NOT READY TO QUIT) [facility] Oct 17, 2017 03:25 PM TOBACCO CESSATION REFERRAL DECLINED [facility] Oct 17, 2017 03:25 PM TOBACCO MEDS OFFER ED BUT DECLINED [facility] Oct 17, 2017 03:25 PM TOBACCO USER OFFERED MEDS [facility] Jul 02, 2017 03:19 PM CURRENT TOBACCO USER [facility] Advance Directives: All historical and current Section Date Range: From patient's date of to the date document was created. This section includes ALL of a patient's completed or amended [place] Advance and Rescinded Directives. The entries below indicate that a directive exists for the patient, but an actual copy is not included with this document. The data comes from all [place] facilities. Date Advance Directives Provider Source May 07, 2023 ADVANCE DIRECTIVE DARLEEN ENRIQUEZ [facility] Encounter Notes: All associated encounter notes This section contains the clinical notes associated to the Encounter. Date/Time Encounter Note(s) Provider Source Jul 05, 2024 02:19 PM PSYCHIATRY NOTE: [facility]AL TITLE[facility] T[facility]: PSYCHIATRY NOTE DATE OF NOTE: JUL 05, 2024@14:19 ENTRY DATE: JUL 05, 2024@14:19:40 AUTHOR: MARIANO QUIÑONES EXP COSIGNER: URGENCY: STATUS: COMPLETED Pt seen and [...] mood/anxiety disorders presents to re-establish care with [facility]. Limited beenfit from previous tx. Low acute risk of harm with protective factors. Plan: SARRTP IOP trial mirtaz 15mg targeting sleep + appetite + mood hydroxyzine prn sleep/anxiety supportive psychotherapy focused on anxiety + psychosocial stresses - 20 min reviewe [facility] care // [facility] contact information [facility] weeks 45 min total care /es/ Mariano Quiñones M.D. Staff Physician, Psychiatry Signed: 07/05/2024 14:31 MARIANO QUIÑONES [facility]
--- OUTSIDE RECORDS SUMMARY | 2025-06-13 11:58 | XMS_ITS | Encounter Summary ---
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 Name Role Phone [employer] Primary Care [...] Cano [facility] Jose NEGRETE ITY Nov 17, 2018 [id number] Jose TABARES PATIENT [facility] PRESCRIPT ION EAL Nov 17, 2018 [facility] [id number] Jose TABARES PATIENT [facility] Jose NEGRETE ITY Nov 17, 2018 [id number] [phone] Jose TABARES PATIENT [facility] PREFERRED PROVIDER ORGANIZAT ION (PPO) WHEJEROD Garcia SECUR ITY Nov 17, 2018 [id number] [phone] Jose TABARES PATIENT Selected Encounter This section includes the information on record at [place] for the Encounter. Date/Time Encounter Type Encounter Description Reason Pro vider Source Jan 24, 2025 10:40 AM OFF/OP CNSLTJ NEW/EST MOD 40 GASTROENTEROLOGY ICD-10-CM R10.13 Epigastric pain TISHABonifacio WISE Tatyana Encounter Template Text not used by [place] Assessments - Encounter Diagnoses This section includes the primary and secondary diagnoses documented for the Encounter. Date/Time Primary/Secondary Diagnosis Diagnosis Name Provider Source Jan 24, 2025 06:12 PM PRIMARY Epigastric pain CHARITY GERARDO [facility] Plan of Treatment: Future Appointments (+ 6 months) and Future Tests (+/- 45 days) The Plan of Treatment section includes future care activities for the patient [facility] [place] [facility] This section includes future appointments and future orders which are active, pending or scheduled. Future Appointments This section includes appointments that were scheduled to occur 6 months from the date of the Encounter, up to a maximum of 20 appointments. The data comes from all [place] treatment facilities. Appointment Date/Time Appointment Type Appointme nt Facility Name Feb 21, 2025 12:30 PM AMBULATORY - PSYCHIATRY [facility] Mar 08, 2025 02:00 PM AMBULATORY - MEDICINE [facility] April 06, 2025 01:15 PM AMBULATORY - MEDICINE [facility] May 10, 2025 11:20 AM AMBULATORY - SURGERY [facility] May 11, 2025 01:30 PM [facility]ATORY - MEDICINE [facility] May 17, 2025 02:40 PM AMBULATORY - MEDICINE [facility] May 19, 2025 11:00 AM AMBULATORY - NONE [facility] May 23, 2025 02:00 PM AMBULATORY - PSYCHIATRY [facility] May 24, 2025 10:40 AM AMBULATORY - SURGERY [facility] Jun 08, 2025 10:40 AM AMBULATORY - SURGERY [facility] Jun 15, 2025 10:15 AM AMBULATORY - MEDICINE [facility] Jun 21, 2025 02:30 PM AMBULATORY - PSYCHIATRY [facility] Lab Results: +/- 30 days of the encounter This section includes the Chemistry and Hematology Lab Results on record with [place] for the patient. Radiology Reports and Pathology Reports are provided separately, in subsequent sections. Lab Results This section contains the Chemistry/Hematology Results that were resulted 30 days before or 30 daysafter the date of the Encounter. Date/Time Source Result Type Result - Unit Interpretation Reference Range Specimen Type Comment Jan 24, 2025 12:04 PM [facility] LIPASE PLASMA Specimen Type: PLASMA Comment: No hemolysis noted. K Called to Dr Gerardo at 1312 on 01/24/2025 by JUVENTINO Critical Verbal Readback Performed Ordering Provider: RENEE GERARDO Report Released Date/Time: Jan 24, 2025 11:14 AM Reporting Lab: [address] [address] Performing Lab: [address] [address] LIPASE 45 U/L 8-78 Jan 24, 2025 12:04 PM [facility] COMPREHENSIVE METABOLIC PANEL PLASMA Specimen Type: PLASMA Comment: No hemolysis noted. K Called to Dr Gerardo at 1312 on 01/24/2025 by JUVENTINO Critical Verbal Readback Performed Ordering Provider: AIDEN GERADRO Report Released Date/Time: Jan 24, 2025 11:14 AM Reporting Lab: [facility] [address] [facility] [address] Performing Lab: [address] [address] CREATININE 0.75 mg/dL 0.7-1.3 UREA NITROGEN 5.9 [...] 114.8 >60 Jan 24, 2025 12:04 PM [facility] CBC BLOOD Specimen Type: BLOOD No comment entered. Ordering Provider: AIDEN GERARDO Report Released Date/Time: Jan 24, 2025 11:14 AM Reporting Lab: [facility] [address] [facility] [address] Performing Lab: [facility] [address] [facility] [address] WBC 8.0 10*3/uL 3.6-11.2 RBC 4.37 10*6/uL [...] 1.40 10*3/uL 0.77-4.50 NEUT#-MDIFF 5.47 10*3/uL 2.10-8.00 Vital Signs: All taken on the encounter date This section contains inpatient and outpatient Vital Signs collected on the date of the Encounter. Date/Time Temperature Pulse Blood Pressure Respiratory Rate SP02 Pain Height Weight Body Mass Index Source Jan 24, 2025 04:51 PM 90 133/78 18 98 0 [facility] Jan 24, 2025 02:00 PM 104 124/78 19 99 [facility] Jan 24, 2025 12:43 PM 98.1 111 133/91 16 10 [facility] Jan 24, 2025 10:41 AM 97.7 97 120/82 18 98 10 149 21 [facility] Social History: Smoking Status (Most current) [...] 11:55 AM VA-TOBACCO FORMER USER [facility] Tobacco Use History This section includes a history of the smoking, or tobacco-related health factors, that were collected on or before the date of the Encounter. The data comes from the [place] facility where the Encounter took place. 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 [facility] May 07, 2023 06:21 AM ORYX DAILY TOBACCO MEDS REFUSED [facility] Oct 27, 2013 02:51 PM QUIT TOBACCO >7 YEARS AGO [facility] Jan 07, 2013 10:01 AM CURRENT TOBACCO USER [facility] Jan 07, 2013 10:01 AM TOBACCO MEDS OFFER ED BUT DECLINED [facility] Sep 18, 2011 12:08 PM QUIT TOBACCO IN TH E LAST 12 MONTHS [facility] Jul 25, 2011 03:33 PM CURRENT TOBACCO USER [facility] Jul 20, 2010 10:35 AM QUIT TOBACCO IN TH E LAST 12 MONTHS [facility] Advance Directives: All historical and current [...] May 07, 2023 ADVANCE DIRECTIVE DARLEEN ENRIQUEZ [facility] Radiology Reports: +/- 30 days of the [...] the Encounter. The data comes from all [place] treatment facilities. Date/Time Radiology Report Provider Source Jan 24, 2025 02:[address] ABD PEL W/CONT & 3D: ELEONORA TABARES [id number] -[id number] M Exm Date: JAN 24, 2025@14:41 Req Phys: TAYLOR MCKINLEY Loc: [facility]Y DEPT 2ND SHIFT (R Img Loc: [facility] IMAGING Service: [address] [address] (Case [id number] COMPLETE) CT ABDOMEN AND PELVIS W/CONTRAST (CT Detailed) CPT:89751 Contrast Media : Non-ionic Iodinated Reason for Study: upper abdominal pain Clinical History: Responsible Attending: Manisha Attending Contact Number: [phone] Resident Contact Number: acute on chronic abdominal pain Allergies listed in CPRS chart: Patient has answered NKA Creatinine:CREATININE 0.75 mg/dL 01/24/2025 12:04 /eGFR: STL EGFR (within one year). CREATININE 0.75 mg/dL (01/24/25 12:04) Wt: 149 lb [67.59 kg] (01/24/2025 10:41) History of: Renal failure, chronic or acute renal disease: NO Report Status: Verified Date Reported: JAN 24, 2025 Date Verified: JAN 24, 2025 Hot Stamp Operator E-Sig:/ES/RADHA GEE Report: Case [id number]. CT ABDOMEN AND PELVIS W/CONTRAST. IV contrast: [...] edema. Report dictated by Johnny Whitehead M.D. (radiology scheduler) I, Radha Gee, have reviewed the images and report and concur with these findings. Primary Interpreting Staff: RADHA GEE, Staff Physician (Hot Stamp Operator) Primary Interpreting Resident: Sharron Cisneros Resident /RADHA PACKER [facility] Encounter Notes: All associated encounter notes This section contains the clinical notes associated to the Encounter. Date/Time Encounter Note(s) Provider Source Feb 21, 2025 09:08 AM ADDENDUM: LOCAL TITLE: Addendum STANDARD TITLE: ADDENDUM DATE OF NOTE: FEB 21, 2025@09:08:36 ENTRY DATE: FEB 21, 2025@09:08:37 AUTHOR: KATIE HERNANDEZ COSIGNER: URGENCY: STATUS: COMPLETED Contacted to schedule, and he's scheduled for 04/06/25 @ 13:15. He would like to receive Yisel holman. /loyda/ KATIE HERNANDEZ ADVANCED MOTOR AND GENERATOR ASSEMBLER Signed: 02/21/2025 09:09 Receipt Acknowledged By: 02/23/2025 08:05 /loyda/ NAVI Angel, RN GI --- Original Document --- 01/24/25 GASTROENTEROLOGY OUTPATIENT CONSULT [facility]: CC: HPI: Pt. is a 44 y/o male being seen for ME pain that occurs in episodes. When it is severe (today) it can last for 12 hours. He denies jaundice or icterus. He has a history of intermittent heavy use of ETOH and uses MJ daily. With these symptoms he also reports pain into his back/subjective fevers. There has been weight loss as well. An US for 2022 showed what appeared to be sludge in the gallbladder. He has had no episodes of pancreatitis and has not presented to the ED with these symptoms. He takes NSAIDs regularly because of all of his musculoskeletal pain. There has been no melena or overt blood loss. He denies a h/o PUD and has never had an EGD. He uses gas-X prn. ROS: Review of systems is as per HPI and additionally notable for Constitutional: No fever, No weakness/ fatigue Cardiovascular: No chest pain, No palpitations Respiratory: No shortness of breath, No cough Genitourinary: No dysuria, No polyuria Neurology: No headache, No tremors Musculoskeletal: No joint pain, No back pain Skin: No rash, No itching Psychiatric: No anxiety, No depression 10-point ROS is otherwise negative. PMHx: Reviewed. Notable for MEDS: Reviewed. Notable for 1) Low back pain (SNOMED CT 654683382) 2) Traumatic brain injury with no loss of consciousness (SNOMED CT 641297770) 3) Acute posttraumatic stress disorder following combat (SNOMED CT 498827930) 4) Concussion (ICD-9-CM 850.9) 5) Anxiety * (ICD-9-CM 300.00/300.09) 6) Depression * (ICD-9-CM 311./300.4) 7) Attention-deficit hyperactivity disorder * 8) Unemployment 9) Palpitations (ICD-9-CM 785.1) 10) Routine General Medical Examination at a Health Care Facility * (ICD-9-CM V70.0) 11) Lumbosacral radiculopathy (SNOMED CT 3118113) 12) Tobacco use 13) Pain 14) Abnormal blood pressure 15) Chronic depression 16) Admits alcohol use 17) Insomnia 18) Alcohol abuse 19) Hypokalemia 20) Posttraumatic stress disorder 21) Bilateral carpal tunnel syndrome 22) Gastroesophageal reflux disease Active Outpatient Medications (excluding Supplies): Issue Date Status Last Fill Active Outpatient Medications Refills Expiration = 1) ACETAMINOPHEN 325MG TAB Qty: 200 for 30 days ACTIVE Issue: 11/26/24 Sig: TAKE TWO TABLETS BY MOUTH FOUR TIMES A Refills: 1 Last : 11/26/24 DAY NEEDED CAUTION: DO NOT EXCEED 4000MG Expr : 11/27/25 PER DAY ACETAMINOPHEN (APAP) FROM ALL MEDS. Indication: FOR PAIN 2) DICLOFENAC NA 1% TOP GEL Qty: 200 for 30 ACTIVE Issue: 11/26/24 days Sig: APPLY 4 GM TO AFFECTED AREA(S) Refills: 2 Last : 11/26/24 FOUR TIMES A DAY NEEDED NO MORE THAN 16 Expr : 11/27/25 GM/DAY TO ANY LOWER EXTREMITY JOINT. NO MORE THAN 8 GM/DAY TO ANY UPPER EXTREMITY JOINT. MAX 32GM/DAY OVER ALL JOINTS.(MEASURE DOSE WITH RULER INSIDE BOX) Indication: FOR PAIN 3) DICYCLOMINE HCL 20MG TAB Qty: 60 for 30 days ACTIVE (S) Issue: 01/24/25 Sig: TAKE ONE TABLET BY MOUTH THREE TIMES A Refills: 0 Last : 01/24/25 DAY NEEDED FOR ABDOMINAL PAIN Expr : 02/23/25 Indication: ABD PAIN 4) HYDROXYZINE HCL 25MG TAB Qty: 180 for 90 ACTIVE Issue: 11/23/24 days Sig: TAKE ONE TABLET BY MOUTH THREE Refills: 3 Last : 12/13/24 TIMES A DAY NEEDED *MAY CAUSE DROWSINESS* Expr : 11/24/25 Indication: FOR ANXIETY 5) LIDOCAINE 5% PATCH Qty: 30 for 30 days Sig: ACTIVE Issue: 11/26/24 APPLY 1 PATCH TO SKIN SITE ONCE A DAY Refills: 1 Last : 11/26/24 NEEDED APPLY PATCH AND PRESS FIRMLY FOR Expr : 11/27/25 10-15 SECONDS. KEEP ON FOR 12 HOURS THEN REMOVE PATCH FOR 12 HOURS. Indication: PAIN 6) MIRTAZAPINE 30MG TAB Qty: 45 for 90 days ACTIVE Issue: 11/23/24 Sig: TAKE ONE-HALF TABLET BY MOUTH AT Refills: 3 Last : 01/16/25 BEDTIME Expr : 11/24/25 Indication: FOR DEPRESSION 7) OMEPRAZOLE 40MG EC CAP Qty: 60 for 30 days ACTIVE Issue: 11/26/24 Sig: TAKE ONE CAPSULE BY MOUTH TWICE DAILY Refills: 1 Last : 11/26/24 NEEDED TAKE 30 MINUTES PRIOR TO FOOD. Expr : 11/27/25 Indication: FOR GASTROESOPHAGEAL REFLUX DISEASE 8) POTASSIUM CL 20MEQ SA TAB (DISPERSIBLE) Qty: ACTIVE Issue: 01/24/25 4 for 7 days Sig: TAKE ONE TABLET BY MOUTH Refills: 0 Last : 01/24/25 ONCE A DAY FOR 1 DAY, THEN TAKE ONE-HALF Expr : 02/23/25 TABLET ONCE A DAY FOR 6 DAYS TAKE WITH FOOD Indication: FOR POTASSIUM SUPPLEMENTATION FHx: No colon CA or polyps. No IBD. No liver, stomach or pancreatic disease. SHx: NS and intermittently drinks ETOH heavily; regularly smokes MJ; was in the [employer] for 7 years (2 years in [place] with [employer]). with children. Vitals-98.1 F [36.7 C] (01/24/2025 12:43)90 (01/24/2025 16:51)133/78 (01/24/2025 16:51)18 (01/24/2025 16:51) Measurement DT POx (L/MIN)(%) 01/24/2025 16:51 98 01/24/2025 14:00 99 01/24/2025 10:41 98 01/11/2025 10:16 100 20.8 General- thin male in discomfort and asked to lay on the gurney rather than be interviewed sitting in a chair HEENT-mmm, no lesion or exudate Neck-no thyromegaly, no JVD CV-rrr no m/r/g/t Lung-cta barak, symmetric movement Abd-thin abdomen; no HSM; no rebound or guarding Ext-no c/c/e Lymph-no edema, cervical or supraclavicular LAD Skin-no rashes, nodules, or jaundice Psych-A&O x 3, normal mood Hemoccult:No FOBT EO data found LABS: Hgb HGB 13.5 g/dL 01/24/2025 12:04 Hct 37.2 % L (01/24/25 12:04) MCV 85.1 fL (01/24/25 12:04) Plt PLT 276 10*3/uL 01/24/2025 12:04 Iron, TIBC No IRON & TIBC EO data found Manfred No FERRITIN EO data found BUN 5.9 mg/dL L (01/24/25 12:04) Cr CREATININE 0.75 mg/dL 01/24/2025 12:04 Alb ALBUMIN 4.7 g/dL 01/24/2025 12:04 Ca 9.6 mg/dL (01/24/25 12:04) TSH TSH 1.066 uIU/mL 03/30/2024 12:02 Vit D No VITAMIN D 25 HYDROXY EO data found ALT 161 U/L H (01/24/25 12:04) AST 70 U/L H (01/24/25 12:04) TB TOTAL BILIRUBIN 0.4 mg/dL 01/24/2025 12:04 AP ALKALINE PHOSPHATASE 50 U/L 01/24/2025 12:04 INR INR VALUE 1.1 INR 05/06/2023 21:30 PROTIME 11.9 sec 05/06/2023 21:30 LAB CUMULATIVE SELECTED 2 Collection DT Spec CHOL TRIG DIRLDL CalcLDL HDL a 04/16/2022 15:49 PLASM 190 402 H 86 comment 55 COMMENTS: a. LDL calculation invalid when Triglyceride exceeds 250 mg/dl --STATUS-- --DUE DATE-- --LAST DONE-- CELIAC DISEASE N/A No data available for: IMMUNOGLOBULIN A (PB-MA) TTG-IGA SLT - Lab Tests Selected Collection DT Specimen Test Name Result Units Ref Range 03/30/2024 12:02 BLOOD HGA1C 4.8 % 4.0 - 6.0 IMAGING: Impression for CT ABDOMEN AND PELVIS W/CONTRAST, 01/24/25, case [id number] 1. Hepatomegaly measuring up to 18.7 cm in craniocaudal length. 2. Mild gallbladder wall thickening is likely secondary to incompletely distended state. No evidence of radiopaque gallstones or pericholecystic fluid. 3. Mild nonspecific mesenteric edema. Report dictated by Johnny Whitehead M.D. (radiology scheduler) Radha Rosas, have reviewed the images and report and concur with these findings. Impression for US ABDOMEN LTD, SINGLE ORG OR QUADRANT, 05/07/23, case [id number] 1. Hepatic steatosis and trace ascites. 2. Question of sludge within the gallbladder without wall thickening and negative Sonographic Moseley's sign. 3. Small pericholecystic fluid could be due to liver disease or other abnormality of fluid homeostasis. Clinical/laboratory correlation is recommended. HIDA scan could also be obtained for further characterization if the clinical suspicion is high for acute cholecystitis. 4. No biliary dilation. Dictated by NATALIO GARCIA DO (radiology scheduler). Luek Rosas, have reviewed the images and report and concur with these findings. No Impressions found Date Procedure CPT Status Case # 01/24/2025 CT ABDOMEN AND PELVIS W/CONTRAST [id number] Verified 766 1. Hepatomegaly measuring up to 18.7 cm in craniocaudal length. 2. Mild gallbladder wall thickening is likely secondary to incompletely distended state. No evidence of radiopaque gallstones or pericholecystic fluid. 3. Mild nonspecific mesenteric edema. Report dictated by Johnny Whitehead M.D. (radiology scheduler) Radha Rosas, have reviewed the images and report and concur with these findings. Date Procedure CPT Status Case # 01/24/2025 CT ABDOMEN AND PELVIS W/CONTRAST [id number] Verified 766 1. Hepatomegaly measuring up to 18.7 cm in craniocaudal length. 2. Mild gallbladder wall thickening is likely secondary to incompletely distended state. No evidence of radiopaque gallstones or pericholecystic fluid. 3. Mild nonspecific mesenteric edema. Report dictated by Johnny Whitehead M.D. (radiology scheduler) I, Radha Gee, have reviewed the images and report and concur with these findings. No data available for: COLONOSCOPY CONSULT REPORT [facility] IMP: the patient is a nice gentleman in moderate distress secondary to pain that occurs episodically, increases at night and is associated with weight loss and fear of eating. The differential includes things such as symptomatic gallstones, PUD in light of his NSAID use, pancreatitis, IBD (weight loss and pain), etc. REC: 1. CT abdomen and pelvis 2. labs to include inflammatory markers, LFTs, blood counts, etc. 3. begin dicylomine tid (discussed SE profile) 4. +/- EGD pending the above 5. agree with ppi as already started Benefits, risks, and alternative tests described to patient and he/she agrees to proceed. The patient was instructed to call the GI lab on the 6th floor of [facility] at [phone] or [phone] if questions or concerns arise. Informed consent performed verbally during office visit. Patient is advised to seek medical attention in the ER for chest pain, shortness of breath, changes in your thinking or moving, changes in blood pressure (very high or very low) bleeding, severe abdominal pain, or other severe/concerning changes in health status. 02/16/2025 10:30 [facility] FL[facility] AM 02/17/2025 11:30 [facility] PCP 02/21/2025 12:30 [facility] Medication list was reviewed with the patient or care-lens mounter, any discrepancies were resolved and the patient was given an updated list. The patient was provided written information with my name, contact phone number, fax, GI lab number and email address. Patient was instructed to contact me with issues/questions/concerns. Written instructions with plans for meds/lab/imaging/procedures was provided to ensure compliance with the above stated plan. /loyda/ AIDEN GERARDO Gastroenterology Signed: 01/24/2025 18:13 02/18/2025 ADDENDUM STATUS: COMPLETED GI note Patient went to ED the day of his visit. Was hypokalemic (treated). No anemia/etc. CT showed non-specific thickening of gallbladder wall (no stones). For now, would recommend EGD for further evaluation of abdominal pain (had started ppi/bentyl). Thanks/VALDO /loyda/ AIDEN GERARDO Gastroenterology Signed: 02/18/2025 11:04 02/23/2025 ADDENDUM STATUS: UNSIGNED You may not VIEW this UNSIGNED Addendum. KATIE HERNANDEZ [facility] Jan 24, 2025 05:54 PM GASTROENTEROLOGY CONSULT: LOCAL TITLE: GASTROENTEROLOGY OUTPATIENT CONSULT [facility] [[email or web address]] STANDARD TITLE: GASTROENTEROLOGY CONSULT DATE OF NOTE: JAN 24, 2025@17:54 ENTRY DATE: JAN 24, 2025@17:55:01 AUTHOR: AIDEN GERARDO COSIGNER: URGENCY: STATUS: COMPLETED GASTROENTEROLOGY OUTPATIENT CONSULT [facility] [[email or web address]] Has ADDENDA CC: HPI: Pt. is a 44 y/o male being seen for ME pain that occurs in episodes. When it is severe (today) it can last for 12 hours. He denies jaundice or icterus. He has a history of intermittent heavy use of ETOH and uses MJ daily. With these symptoms he also reports pain into his back/subjective fevers. There has been weight loss as well. An US for 2022 showed what appeared to be sludge in the gallbladder. He has had no episodes of pancreatitis and has not presented to the ED with these symptoms. He takes NSAIDs regularly because of all of his musculoskeletal pain. There has been no melena or overt blood loss. He denies a h/o PUD and has never had an EGD. He uses gas-X prn. ROS: Review of systems is as per HPI and additionally notable for Constitutional: No fever, No weakness/ fatigue Cardiovascular: No chest pain, No palpitations Respiratory: No shortness of breath, No cough Genitourinary: No dysuria, No polyuria Neurology: No headache, No tremors Musculoskeletal: No joint pain, No back pain Skin: No rash, No itching Psychiatric: No anxiety, No depression 10-point ROS is otherwise negative. PMHx: Reviewed. Notable for MEDS: Reviewed. Notable for 1) Low back pain (SNOMED CT 949791083) 2) Traumatic brain injury with no loss of consciousness (SNOMED CT 246674126) 3) Acute posttraumatic stress disorder following combat (SNOMED CT 408164375) 4) Concussion (ICD-9-CM 850.9) 5) Anxiety * (ICD-9-CM 300.00/300.09) 6) Depression * (ICD-9-CM 311./300.4) 7) Attention-deficit hyperactivity disorder * 8) Unemployment 9) Palpitations (ICD-9-CM 785.1) 10) Routine General Medical Examination at a Health Care Facility * (ICD-9-CM V70.0) 11) Lumbosacral radiculopathy (SNOMED CT 0257386) 12) Tobacco use 13) Pain 14) Abnormal blood pressure 15) Chronic depression 16) Admits alcohol use 17) Insomnia 18) Alcohol abuse 19) Hypokalemia 20) Posttraumatic stress disorder 21) Bilateral carpal tunnel syndrome 22) Gastroesophageal reflux disease Active Outpatient Medications (excluding Supplies): Issue Date Status Last Fill Active Outpatient Medications Refills Expiration = 1) ACETAMINOPHEN 325MG TAB Qty: 200 for 30 days ACTIVE Issue: 11/26/24 Sig: TAKE TWO TABLETS BY MOUTH FOUR TIMES A Refills: 1 Last : 11/26/24 DAY NEEDED CAUTION: DO NOT EXCEED 4000MG Expr : 11/27/25 PER DAY ACETAMINOPHEN (APAP) FROM ALL MEDS. Indication: FOR PAIN 2) DICLOFENAC NA 1% TOP GEL Qty: 200 for 30 ACTIVE Issue: 11/26/24 days Sig: APPLY 4 GM TO AFFECTED AREA(S) Refills: 2 Last : 11/26/24 FOUR TIMES A DAY NEEDED NO MORE THAN 16 Expr : 11/27/25 GM/DAY TO ANY LOWER EXTREMITY JOINT. NO MORE THAN 8 GM/DAY TO ANY UPPER EXTREMITY JOINT. MAX 32GM/DAY OVER ALL JOINTS.(MEASURE DOSE WITH RULER INSIDE BOX) Indication: FOR PAIN 3) DICYCLOMINE HCL 20MG TAB Qty: 60 for 30 days ACTIVE (S) Issue: 01/24/25 Sig: TAKE ONE TABLET BY MOUTH THREE TIMES A Refills: 0 Last : 01/24/25 DAY NEEDED FOR ABDOMINAL PAIN Expr : 02/23/25 Indication: ABD PAIN 4) HYDROXYZINE HCL 25MG TAB Qty: 180 for 90 ACTIVE Issue: 11/23/24 days Sig: TAKE ONE TABLET BY MOUTH THREE Refills: 3 Last : 12/13/24 TIMES A DAY NEEDED *MAY CAUSE DROWSINESS* Expr : 11/24/25 Indication: FOR ANXIETY 5) LIDOCAINE 5% PATCH Qty: 30 for 30 days Sig: ACTIVE Issue: 11/26/24 APPLY 1 PATCH TO SKIN SITE ONCE A DAY Refills: 1 Last : 11/26/24 NEEDED APPLY PATCH AND PRESS FIRMLY FOR Expr : 11/27/25 10-15 SECONDS. KEEP ON FOR 12 HOURS THEN REMOVE PATCH FOR 12 HOURS. Indication: PAIN 6) MIRTAZAPINE 30MG TAB Qty: 45 for 90 days ACTIVE Issue: 11/23/24 Sig: TAKE ONE-HALF TABLET BY MOUTH AT Refills: 3 Last : 01/16/25 BEDTIME Expr : 11/24/25 Indication: FOR DEPRESSION 7) OMEPRAZOLE 40MG EC CAP Qty: 60 for 30 days ACTIVE Issue: 11/26/24 Sig: TAKE ONE CAPSULE BY MOUTH TWICE DAILY Refills: 1 Last : 11/26/24 NEEDED TAKE 30 MINUTES PRIOR TO FOOD. Expr : 11/27/25 Indication: FOR GASTROESOPHAGEAL REFLUX DISEASE 8) POTASSIUM CL 20MEQ SA TAB (DISPERSIBLE) Qty: ACTIVE Issue: 01/24/25 4 for 7 days Sig: TAKE ONE TABLET BY MOUTH Refills: 0 Last : 01/24/25 ONCE A DAY FOR 1 DAY, THEN TAKE ONE-HALF Expr : 02/23/25 TABLET ONCE A DAY FOR 6 DAYS TAKE WITH FOOD Indication: FOR POTASSIUM SUPPLEMENTATION FHx: No colon CA or polyps. No IBD. No liver, stomach or pancreatic disease. SHx: NS and intermittently drinks ETOH heavily; regularly smokes MJ; was in the [employer] for 7 years (2 years in [place] with [employer]). with children. Vitals-98.1 F [36.7 C] (01/24/2025 12:43)90 (01/24/2025 16:51)133/78 (01/24/2025 16:51)18 (01/24/2025 16:51) Measurement DT POx (L/MIN)(%) 01/24/2025 16:51 98 01/24/2025 14:00 99 01/24/2025 10:41 98 01/11/2025 10:16 100 20.8 General- thin male in discomfort and asked to lay on the gurney rather than be interviewed sitting in a chair HEENT-mmm, no lesion or exudate Neck-no thyromegaly, no JVD CV-rrr no m/r/g/t Lung-cta barak, symmetric movement Abd-thin abdomen; no HSM; no rebound or guarding Ext-no c/c/e Lymph-no edema, cervical or supraclavicular LAD Skin-no rashes, nodules, or jaundice Psych-A&O x 3, normal mood Hemoccult:No FOBT EO data found LABS: Hgb HGB 13.5 g/dL 01/24/2025 12:04 Hct 37.2 % L (01/24/25 12:04) MCV 85.1 fL (01/24/25 12:04) Plt PLT 276 10*3/uL 01/24/2025 12:04 Iron, TIBC No IRON & TIBC EO data found Manfred No FERRITIN EO data found BUN 5.9 mg/dL L (01/24/25 12:04) Cr CREATININE 0.75 mg/dL 01/24/2025 12:04 Alb ALBUMIN 4.7 g/dL 01/24/2025 12:04 Ca 9.6 mg/dL (01/24/25 12:04) TSH TSH 1.066 uIU/mL 03/30/2024 12:02 Vit D No VITAMIN D 25 HYDROXY EO data found ALT 161 U/L H (01/24/25 12:04) AST 70 U/L H (01/24/25 12:04) TB TOTAL BILIRUBIN 0.4 mg/dL 01/24/2025 12:04 AP ALKALINE PHOSPHATASE 50 U/L 01/24/2025 12:04 INR INR VALUE 1.1 INR 05/06/2023 21:30 PROTIME 11.9 sec 05/06/2023 21:30 LAB CUMULATIVE SELECTED 2 Collection DT Spec CHOL TRIG DIRLDL CalcLDL HDL a 04/16/2022 15:49 PLASM 190 402 H 86 comment 55 COMMENTS: a. LDL calculation invalid when Triglyceride exceeds 250 mg/dl --STATUS-- --DUE DATE-- --LAST DONE-- CELIAC DISEASE N/A No data available for: IMMUNOGLOBULIN A (PB-MA) TTG-IGA SLT - Lab Tests Selected Collection DT Specimen Test Name Result Units Ref Range 03/30/2024 12:02 BLOOD HGA1C 4.8 % 4.0 - 6.0 IMAGING: Impression for CT ABDOMEN AND PELVIS W/CONTRAST, 01/24/25, case [id number] 1. Hepatomegaly measuring up to 18.7 cm in craniocaudal length. 2. Mild gallbladder wall thickening is likely secondary to incompletely distended state. No evidence of radiopaque gallstones or pericholecystic fluid. 3. Mild nonspecific mesenteric edema. Report dictated by Johnny Whitehead M.D. (radiology scheduler) Radha Rosas, have reviewed the images and report and concur with these findings. Impression for US ABDOMEN LTD, SINGLE ORG OR QUADRANT, 05/07/23, case [id number] 1. Hepatic steatosis and trace ascites. 2. Question of sludge within the gallbladder without wall thickening and negative Sonographic Moseley's sign. 3. Small pericholecystic fluid could be due to liver disease or other abnormality of fluid homeostasis. Clinical/laboratory correlation is recommended. HIDA scan could also be obtained for further characterization if the clinical suspicion is high for acute cholecystitis. 4. No biliary dilation. Dictated by NATALIO GARCIA DO (radiology scheduler). Luke Rsoas, have reviewed the images and report and concur with these findings. No Impressions found Date Procedure CPT Status Case # 01/24/2025 CT ABDOMEN AND PELVIS W/CONTRAST [id number] Verified 766 1. Hepatomegaly measuring up to 18.7 cm in craniocaudal length. 2. Mild gallbladder wall thickening is likely secondary to incompletely distended state. No evidence of radiopaque gallstones or pericholecystic fluid. 3. Mild nonspecific mesenteric edema. Report dictated by Johnny Whitehead M.D. (radiology scheduler) Radha Rosas, have reviewed the images and report and concur with these findings. Date Procedure CPT Status Case # 01/24/2025 CT ABDOMEN AND PELVIS W/CONTRAST [id number] Verified 766 1. Hepatomegaly measuring up to 18.7 cm in craniocaudal length. 2. Mild gallbladder wall thickening is likely secondary to incompletely distended state. No evidence of radiopaque gallstones or pericholecystic fluid. 3. Mild nonspecific mesenteric edema. Report dictated by Johnny Whitehead M.D. (radiology scheduler) I, Radha Gee, have reviewed the images and report and concur with these findings. No data available for: COLONOSCOPY CONSULT REPORT STL IMP: the patient is a nice gentleman in moderate distress secondary to pain that occurs episodically, increases at night and is associated with weight loss and fear of eating. The differential includes things such as symptomatic gallstones, PUD in light of his NSAID use, pancreatitis, IBD (weight loss and pain), etc. REC: 1. CT abdomen and pelvis 2. labs to include inflammatory markers, LFTs, blood counts, etc. 3. begin dicylomine tid (discussed SE profile) 4. +/- EGD pending the above 5. agree with ppi as already started Benefits, risks, and alternative tests described to patient and he/she agrees to proceed. The patient was instructed to call the GI lab on the 6th floor of [facility] at [phone] or [phone] if questions or concerns arise. Informed consent performed verbally during office visit. Patient is advised to seek medical attention in the ER for chest pain, shortness of breath, changes in your thinking or moving, changes in blood pressure (very high or very low) bleeding, severe abdominal pain, or other severe/concerning changes in health status. 02/16/2025 10:30 TERRIE-CT FLASH AM 02/17/2025 11:30 STEVENSON-PACT E PCP 02/21/2025 12:30 [facility] IND LOITERS Medication list was reviewed with the patient or care-lens mounter, any discrepancies were resolved and the patient was given an updated list. The patient was provided written information with my name, contact phone number, fax, GI lab number and email address. Patient was instructed to contact me with issues/questions/concerns. Written instructions with plans for meds/lab/imaging/procedures was provided to ensure compliance with the above stated plan. /loyda/ AIDEN GERARDO Gastroenterology Signed: 01/24/2025 18:13 02/18/2025 ADDENDUM STATUS: COMPLETED GI note Patient went to ED the day of his visit. Was hypokalemic (treated). No anemia/etc. CT showed non-specific thickening of gallbladder wall (no stones). For now, would recommend EGD for further evaluation of abdominal pain (had started ppi/bentyl). Thanks/VALDO /loyda/ AIDEN GERARDO Gastroenterology Signed: 02/18/2025 11:04 02/21/2025 ADDENDUM STATUS: COMPLETED Contacted to schedule, and he's scheduled for 04/06/25 @ 13:15. He would like to receive [employer] instructions. /loyda/ KATIE HERNANDEZ [employer] Signed: 02/21/2025 09:09 Receipt Acknowledged By: 02/23/2025 08:05 /loyda/ NAVI Angel, RN DUSTY 02/23/2025 ADDENDUM STATUS: COMPLETED Appt letter and instructions mailed per orders. /NAVI Heck, RN GI Signed: 02/23/2025 08:05 02/23/2025 ADDENDUM STATUS: COMPLETED enrolled in [employer] 02/23/2025 Verbal consent obtained. a) Using [employer] is voluntary and is designed to support patient self-care. b) [employer] messages are automated, responses will not be read by [place] health care team. c) SMS text messages are not secure. Msg and data rates may apply. Message frequency varies. d) Collection of a patient's information is subject to federal law. was assigned the following health subscription(s): egd /loyda/ NAVI Angel, RN GI Signed: 02/23/2025 08:31 AIDEN GERARDO [facility]
--- OUTSIDE RECORDS SUMMARY | 2025-06-13 11:58 | XMS_ITS | Clinical Summary ---
Author Organization [facility] Address [address] [place] [address] Care Team Providers Care Superintendent Warehouse Name Role Phone Unavailable Primary Care Provider Unavailabl e Source Comments [facility] [employer],non-owned Affiliates and Associated Physician Practices is amultiple site organization consisting of ambulatory clinics and hospital sitesin [place], [place], [place] and [place]. This disclosure is being madepursuant to the Care Everywhere program and may not contain all information available regarding this patient. Last updated 18.[facility] Allergies No known active allergies Medications * Be aware that medications may not be up to date on this document. Alwaysverify current medications with the patient. HYDROCODONE-KYLE TAMINOPHEN PO Active traMADol (ULTRAM) 50 MG tablet Take 50 mg by mouth every 6 hours as needed for Pain Active benzonatate (TESSALON) 200 MG capsuleIndicati ons:Acute maxillary sinusitis, recurrence not specified Take 1 [...] Recorded Sex Assigned at Not on file Legal Sex Male 9:55 AM [employer] Gender Identity Not on file Sexual Orientation Not on file Last Filed Vital Signs Vital Sign Reading Time Taken Comments Blood Pressure 118/78 12/04/2018 12:30 PM [employer] Pulse 88 12/04/2018 12:30 PM [employer] Temperature 37.1 C (98.8 F) 12/04/2018 12:30 PM [employer] Respiratory Rate 16 12/04/2018 12:30 PM [employer] Oxygen Saturation 99% 12/04/2018 12:30 PM [employer] Inhaled Oxygen Concentration - - Weight 86.2 kg (190 lb) 12/04/2018 12:30 PM [employer] Height 180.3 cm (5' 11) 12/04/2018 12:30 PM [employer] Body Mass Index 26.5 12/04/2018 12:30 PM [employer] Plan of Treatment Health Maintenance Due Date Last Done Comments LIPID TESTING 1981 HIV SCREENING 1996 HEPATITIS C SCREENING 05/22/1999 DTAP/TDAP/TD VACCINES (1 - Tdap) 2000 HEPATITIS B VACCINE (1 of 3 - 19+ 3-dose series) 2000 HPV VACCINE (1 - 3-dose SCDM series) 2008 COVID-19 VACCINE ( - 2023-2 5 season) 2024 DEPRESSION SCREENING 11/17/2024 INFLUENZA VACCINE (#1) 2025 ZOSTER VACCINE (1 of 2) 2031 HIB VACCINE Aged Out No longer eligi ble based on patient's age to complete this topic MENINGOCOCCAL (Group B) VACC INE SHARED DECISION-MAKING Aged Out No longer eligibl e based on patient's age to complete this topic MENINGOCOCCAL GROUPS A/C/Y/W VACCINE Aged Out No longer eligible b ased on patient's age to complete this topic PNEUMOCOCCAL VACCINE Aged Out No long er eligible based on patient's age to complete this topic
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
--- OUTSIDE RECORDS SUMMARY | 2025-06-13 11:58 | XMS_ITS | Encounter Summary ---
Author Name [facility] of [facility] Affairs ([place]) Organization [facility] Address [address] [place] [address] Care Team Providers Care Extermination Supervisor Name Role Phone [employer] Primary Care [...] Policy [facility] Jose NEGRETE ITY Nov 17, 2018 [id number] Jose TABARES PATIENT [facility] PRESCRIPT ION UHEAL TH Nov 17, 2018 [facility] [id number] Jose TABARES PATIENT [facility] Jose NEGRETE ITY Nov 17, 2018 [id number] [phone] Jose TABARES PATIENT [facility] PREFERRED PROVIDER ORGANIZAT ION (PPO) JOSE Garcia SECUR ITY Nov 17, 2018 [id number] [phone] Jose TABARES PATIENT Selected Encounter This section includes the information on record at [place] for the Encounter. Date/Time Encounter Type Encounter Description Reason Provider Source May 19, 2025 12:27 PM OFFICE O/P EST LOW 20 MIN ANESTHESIA PRE/POST-OP CONSULT ICD-10-CM Z01.818 Encounter for other preprocedural examination JOSE R PAGE [facility] Encounter Template Text not used by [place] Assessments - Encounter Diagnoses This section includes the primary and secondary diagnoses documented for the Encounter. Date/Time Primary/Secondary Diagnosis Diagnosis Name Provider Source May 19, 2025 01:01 PM PRIMARY Encounter for other preprocedural examination JOSE R PAGE [facility] May 19, 2025 01:01 PM SECONDARY Encounter for other specified surgical aftercare JOSE R PAGE [facility] May 19, 2025 01:01 PM SECONDARY Encounter for preprocedural cardiovascular examination JOSE R PAGE [facility] May 19, 2025 01:01 PM SECONDARY Encounter for preprocedural respiratory examination JOSE R PAGE [facility] Plan of Treatment: Future Appointments (+ 6 months) and Future Tests (+/- 45 days) The Plan of Treatment section includes future care activities for the patient from all [place] [facility]. This section includes future appointments and future orders which are active, pending or scheduled. Future Appointments This section includes appointments that were scheduled to occur 6 months from the date of the Encounter, up to a maximum of 20 appointments. The data comes from all [place] treatment facilities. Appointment Date/Time Appointment Type Appointme nt Facility Name May 23, 2025 02:00 PM AMBULATORY - PSYCHIATRY [facility] May 24, 2025 10:40 AM AMBULATORY - SURGERY [facility] Jun 08, 2025 10:40 AM AMBULATORY - SURGERY [facility] Jun 15, 2025 10:15 AM AMBULATORY - MEDICINE [facility] Jun 21, 2025 02:30 PM AMBULATORY - PSYCHIATRY [facility] Aug 17, 2025 02:00 PM AMBULATORY - MEDICINE [facility] Active, Pending, and Scheduled Orders This section includes a listing of several types of active, pending, and scheduled orders, including clinic medications orders, diagnostic test orders, procedure orders and consult orders; where the start date of the order is 45 days before the date of the Encounter or 45 days after the date of theEncounter. The data comes from all [place] treatment facilities. Test Date/Time Test Type Test Details Facility Name Jun 15, 2025 12:00 AM Laboratory - Chemi stry Order RENAL PANEL GREEN LI/HEP BLD/PLAS PLASMA SP [facility] Jun 15, 2025 12:00 AM Laboratory - Chemi stry Order MAGNESIUM GREEN LI/HEP BLD/PLAS PLASMA SP [facility] Lab Results: +/- 30 days of the encounter This section includes the Chemistry and Hematology Lab Results on record with [place] for the patient. Radiology Reports and Pathology Reports are provided separately, in subsequent sections. Lab Results This section contains the Chemistry/Hematology Results that were resulted 30 days before or 30 daysafter the date of the Encounter. Date/Time Source Result Type Result - Unit Interpretation Reference Range Specimen Type Comment May 10, 2025 11:02 AM [facility] BASIC METABOLIC PANEL PLASMA Specimen Type: PLASMA Comment: No hemolysis noted. Ordering Provider: ALE BALTAZAR Report Released Date/Time: May 09, 2025 12:21 PM Reporting Lab: [address] [address] Performing Lab: [address] [address] CREATININE 0.66 mg/dL L 0.7-1.3 UREA NITROGEN 4.1 mg/dL L 9.0-25.0 GLUCOSE 59 mg/dL L 72-99 SODIUM 139 meq/L 136-145 POTASSIUM 3.4 meq/L L 3.5-5 CHLORIDE 104 meq/L 98-107 CARBON DIOXIDE 28 meq/L 22-31 CALCIUM 9.1 mg/dL 8.4-10.4 EGFR (CKD-EPI 2020) 119.4 >60 May 10, 2025 11:02 AM [facility] CBC BLOOD Specimen Type: BLOOD No comment entered. Ordering Provider: ALE BALTAZAR Report Released Date/Time: May 09, 2025 12:21 PM Reporting Lab: [address] [address] Performing Lab: [address] [facility] [address] WBC 7.1 10*3/uL 3.6-11.2 RBC 3.92 10*6/uL [...] 130/97 mm[Hg] 16 /min 100 % 0 [facility] May 19, 2025 11:55 AM 98.3 F 92 /min 130/94 mm[Hg] 14 /min 100 % 5 71 in 143.9 lb 20 [facility] Social History: Smoking Status [...] 05, 2024 11:55 AM VA-TOBACCO FORMER USER [facility] Tobacco Use History This section includes a history of the smoking, or tobacco-related health factors, that were collected on or before the date of the Encounter. The data comes from the [place] facility where the Encounter took place. 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 RECEIVED [facility] May 07, 2023 06:21 AM ORYX DAILY TOBACCO MEDS REFUSED [facility] Oct 27, 2013 02:51 PM QUIT TOBACCO >7 YEARS AGO [facility] Jan 07, 2013 10:01 AM CURRENT TOBACCO USER [facility] Jan 07, 2013 10:01 AM TOBACCO MEDS OFFER ED BUT DECLINED [facility] Sep 18, 2011 12:08 PM QUIT TOBACCO IN TH E LAST 12 MONTHS [facility] Jul 25, 2011 03:33 PM CURRENT TOBACCO USER [facility] Jul 20, 2010 10:35 AM QUIT TOBACCO IN TH E LAST 12 MONTHS [facility] Advance Directives: All historical [...] May 07, 2023 ADVANCE DIRECTIVE DARLEEN ENRIQUEZ [facility] Encounter Notes: All associated encounter notes This section contains the clinical notes associated to the Encounter. Date/Time Encounter Note(s) Provider Source May 24, 2025 09:56 AM NURSING NOTE: LOCAL TITLE: [facility] OP PROCEDURE CALL ST STANDARD TITLE: NURSING NOTE DATE OF NOTE: MAY 24, 2025@09:56 ENTRY DATE: MAY 24, 2025@09:56:49 AUTHOR: MIRELLA STRAUSS EXP COSIGNER: URGENCY: STATUS: COMPLETED Post discharge call unsuccessful Attempts to contact patient:1 No answer at phone number listed and unable to leave message. /loyda/ MIRELLA STRAUSS MS, BSN, RN REGISTERED NURSE Signed: 05/24/2025 09:57 MIRELLA STRAUSS [facility] May 19, 2025 03:30 PM ANESTHESIOLOGY POS T OPERATIVE E & M NOTE: LOCAL TITLE: ANESTHESIA POST-OP STL STANDARD TITLE: ANESTHESIOLOGY POST OPERATIVE E & M NOTE DATE OF NOTE: MAY 19, 2025@15:30 ENTRY DATE: MAY 19, 2025@15:30:09 AUTHOR: JOSE R PAGE EXP COSIGNER: URGENCY: STATUS: COMPLETED Anesthesia Post-Anesthetic No Complications: Anesthesia Intra-Op Flowsheet Uploaded to [employer] /loyda/ JOSE R PAGE MD Staff Physician, Anesthesiology Signed: 05/19/2025 15:30 JOSE R PAGE [facility] May 19, 2025 01:25 PM OPERATIVE NOTE: LOCAL TITLE: BRIEF OP NOTE STL STANDARD TITLE: OPERATIVE NOTE DATE OF NOTE: MAY 19, 2025@13:25 ENTRY DATE: MAY 19, 2025@13:26:10 AUTHOR: MILLY CORDOVA EXP COSIGNER: ALE BALTAZAR URGENCY: STATUS: COMPLETED Date of Surgery:May Surgery Case #:[id number] Pre-Operative Diagnosis:left carpal tunnel Post-Operative Diagnosis:left carpal tunnel Surgery Performed:left carpal tunnel release Attending:Lynne Surgeon:Laverne wells Youth Leader:n/a Type of Anesthesia:MAC Specimens:No If yes, Type and number of specimens: Findings: median n. compression Complications:none Estimated Blood Loss:2 cc Blood Given? No If yes, how much? Fluid Replacement:per anesthesia Status En-Route to PACU? Critical: No Satisfactory: Yes Operative Note Dictation Job#: /saranya [facility] [employer] PGY 2; RESIDENT PHYSICIAN,SURGERY Signed: 05/19/2025 13:27 /loyda/ ALE BALTAZAR MD Staff Physician, Plastic Surgery Cosigned: 05/24/2025 09:49 MILLY CORDOVA [facility] May 19, 2025 12:28 PM ANESTHESIOLOGY PRE OPERATIVE E & M NOTE: LOCAL TITLE: ANESTHESIA PRE-OP STL STANDARD TITLE: ANESTHESIOLOGY PRE OPERATIVE E & M NOTE DATE OF NOTE: MAY 19, 2025@12:28 ENTRY DATE: MAY 19, 2025@12:28:17 AUTHOR: JOSE R PAGE COSIGNER: URGENCY: STATUS: COMPLETED Pre-Operative Diagnosis: left carpal tunnel syndrome Operation proposed: left carpal tunnel release Vitals: Age: 44 Weight: 143.9 lb [65.27 kg] (05/19/2025 11:55) Height: 71 in [180.3 cm] (05/19/2025 11:55) Blood Pressure: 130/94 (05/19/2025 11:55) Pulse: 92 (05/19/2025 11:55) Temp: 98.3 F [36.8 C] (05/19/2025 11:55) Resp: 14 (05/19/2025 11:55) SpO2: 100% (05/19/2025 11:55) BMI: 20.1 Allergies: Patient has answered NKA Medications: ACTIVE INPT MEDS: 1) CEFAZOLIN 2GM/BAG INJ,SOLN IVPB ONE-TIME TO BE GIVEN IN O.R. ONLY ON May@08:00 Active Outpatient Medications (including Supplies): Active Outpatient [...] TAKE WITH FOOD Indication: FOR POTASSIUM SUPPLEMENTATION Most Recent Labs/CXR/EKG Results HGB 12.7 L g/dL 05/10/2025 11:02 HCT 38.1 % L (05/10/25 11:02) PLT 429 H 10*3/uL 05/10/2025 11:02 WBC 7.1 10*3/uL (05/10/25 11:02) PT ____ No PTT EO data found No INR EO data found SODIUM 139 mEq/L 05/10/2025 11:02 POTASSIUM 3.4 L mEq/L 05/10/2025 11:02 CHLORIDE 104 mEq/L 05/10/2025 11:02 UREA NITROGEN 4.1 L mg/dL 05/10/2025 11:02 CREATININE 0.66 L mg/dL 05/10/2025 11:02 CALCIUM 9.1 mg/dL 05/10/2025 11:02 CARBON DIOXIDE 28 mEq/L 05/10/2025 11:02 GLUCOSE 59 L mg/dL 05/10/2025 11:02 EGFR (CKD-EPI 2020) 119.4 05/10/2025 11:02 ALBUMIN 4.7 g/dL 01/24/2025 12:04 HGA1C 4.8 % 03/30/2024 12:02 ALKALINE PHOSPHATASE 50 U/L 01/24/2025 12:04 SGPT/ALT 161 U/L H (01/24/25 12:04) SGOT/AST 70 U/L H (01/24/25 12:04) TOTAL BILIRUBIN 0.4 mg/dL 01/24/2025 12:04 No GLUCOSE,BLOOD-poct (STL) data found No URINALYSIS EO data found UDS: AMPHET/METHAMPHETAMINE Negative ng/mL 03/30/2024 12:07 BENZODIAZEPINES (STL) Negative ng/mL 03/30/2024 12:07 CANNABINOIDS 94-POS ng/mL 03/30/2024 12:07 COCAINE METABOLITES Negative ng/mL 03/30/2024 12:07 OPIATES Negative ng/mL 03/30/2024 12:07 TEST: No TEST LAST ONE EO data found HIV COMBO FOURTH GENERATION ([place]) Negative 05/11/2012 11:49 [facility] Hep C tests in last five years. HEP C Ab HCV Ab (STL) Nonreactive S/CO (05/07/23 06:00) CXR: Impression for CHEST PORTABLE, 02/21/21, case 2003 The lungs are clear without pneumothorax, large pleural effusion, focal consolidation. The heart size is normal. Mediastinal contours are normal. EKG: NSR Other Tests: Problem List: 1) Low back pain (SNOMED CT 395523734) 2) Traumatic brain injury with no loss of consciousness (SNOMED CT 846607237) 3) Acute posttraumatic stress disorder following combat (SNOMED CT 851709660) 4) Concussion (ICD-9-CM 850.9) 5) Anxiety * (ICD-9-CM 300.00/300.09) 6) Depression * (ICD-9-CM 311./300.4) 7) Attention-deficit hyperactivity disorder * 8) Unemployment 9) Palpitations (ICD-9-CM 785.1) 10) Routine General Medical Examination at a Health Care Facility * (ICD-9-CM V70.0) 11) Lumbosacral radiculopathy (SNOMED CT 1225520) 12) Tobacco use 13) Pain 14) Abnormal blood pressure 15) Chronic depression 16) Admits alcohol use 17) Insomnia 18) Alcohol abuse 19) Hypokalemia 20) Posttraumatic stress disorder 21) Bilateral carpal tunnel syndrome 22) Gastroesophageal reflux disease REVIEW OF SYSTEMS: RESPIRATORY ? for: - Sleep apnea - Asthma - COPD CARDIAC ? for: - Hypertension,, ELEVATED BP W/O DIAGNOSIS OF HTN - Hyperlipidemia - Myocardial infarction - Coronary artery disease - Heart failure - Valvular disease - Atrial fibrillation/flutter PSYCH/CENTRAL NERVOUS ? for: - Depression - Anxiety + Post-traumatic stress disorder - Cerebral vascular accident - Seizures + TBI + ADHD ENDOCRINE ? for: - Diabetes - Hypothyroid + HYPOKALEMIA, H/O RENAL ? for: - Chronic kidney disease - Nephrolithiasis GI ? for: + GERD: under meds control - Liver disease - GI bleed VASCULAR/HEMATOLOGY/ONCOLOGY ? for: - Anemia - Thrombocytopenia - Bleeding disorders MUSCULOSKELETAL/SKIN/PERIPHER AL NERVOUS ? for: - Obesity - Arthritis/Degenerative joint disease - Rheumatoid arthritis - Neuropathy /REPRODUCTIVE ? for: - Prostate hypertrophy HABITS Tobacco : Using few cigarettes and pouch ETOH: 2-3 times per week, few drink each time. OTHER: marijuina daily PSH: No previous Anesthesia complications Physical Exam: Auscultation Finding: Heart Sounds: Regular Rate, Regular Rhythm Breath Sounds: Clear AIRWAY: MP CLASS:I SUBMANDIBULAR SPACE:3 fingerbreaths RANGE OF MOTION: FULL TEETH: Okay ASA: 2. A patient with mild systemic disease. ANESTHETIC PLAN: Monitored Anesthesia Care (MAC) Planned anesthetic technique and options were discussed with the patient or guardian. Pre-Induction Reassessment: NPO Greater than 8 hours: Yes Beta Albert Therapy: no Pre-op Antibiotic Therapy Administration: Yes /loyda/ JOSE R PAGE MD Staff Physician, Anesthesiology Signed: 05/19/2025 12:34 Receipt Acknowledged By: 05/19/2025 13:01 /loyda/ TORO RAMOS CRNA CHEMISTRY RESEARCH ASSISTANT, Anesthesiology JOSE R PAGE RESEARCH [facility]
--- OUTSIDE RECORDS SUMMARY | 2025-06-13 11:58 | XMS_ITS ---
Author Name [facility] [place] Organization [facility] Address [address] [place] [address] Care Team Providers Care Profile Shaper Operator Name Role Phone JOSUE NGO Primary [...] Policy Cano [facility] Jose NEGRETE ITY Nov 17, 2018 [id number] [phone] Jose TABARES PATIENT [facility] PRESCRIPT ION UHEAL TH Nov 17, 2018 [facility] [id number] Jose TABARES PATIENT [facility] Jose NEGRETE ITY Nov 17, 2018 [id number] [phone] Jose TABARES PATIENT [facility] PREFERRED PROVIDER ORGANIZAT ION (PPO) JOSE Garcia SECUR ITY Nov 17, 2018 [id number] [phone] Jose TABARES PATIENT Selected Encounter This section includes the information on record at [place] for the Encounter. 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, subs TERRA QUIÑONES [facility] Nov 23, 2024 02:22 PM SECONDARY Alcohol use, unspecified with intoxication, uncomplicated TERRA QUIÑONES [facility] Nov 23, 2024 02:22 PM SECONDARY Alcohol use, unspecified, uncomplicated TERRA QUIÑONES [facility] Nov 23, 2024 02:22 PM SECONDARY Post-traumatic stress disorder, acute TERRA QUIÑONES [facility] Plan of Treatment: Future Appointments (+ 6 months) and Future Tests (+/- 45 days) The Plan of Treatment section includes future care activities for the patient from all [place] treatmentchon[facility] pediatric hospital. This section includes future appointments and future orders which are active, pending or scheduled. Future Appointments This section includes appointments that were scheduled to occur 6 months from the date of the Encounter, up to a maximum of 20 appointments. The data comes from all [place] treatment facilities. Appointment Date/Time Appointment Type Appointme nt Facility Name Nov 26, 2024 10:00 AM AMBULATORY - MEDICINE [facility] Dec 15, 2024 02:00 PM AMBULATORY - NONE [facility] Dec 20, 2024 09:20 AM AMBULATORY - MEDICINE [facility] Jan 11, 2025 09:40 AM AMBULATORY - SURGERY [facility] Jan 24, 2025 10:40 AM AMBULATORY - MEDICINE [facility] Jan 24, 2025 12:35 PM AMBULATORY - MEDICINE [facility] Feb 21, 2025 12:30 PM AMBULATORY - PSYCHIATRY [facility] Mar 08, 2025 02:00 PM AMBULATORY - MEDICINE [facility] April 06, 2025 01:15 PM AMBULATORY - MEDICINE [facility] May 10, 2025 11:20 AM AMBULATORY - SURGERY . Ramsey [facility] May 11, 2025 01:30 PM AMBULATORY - MEDICINE [facility] May 17, 2025 02:40 PM AMBULATORY - MEDICINE [facility] May 19, 2025 11:00 AM AMBULATORY - NONE . RAMU S [facility] May 23, 2025 02:00 PM AMBULATORY - PSYCHIATRY [facility] Active, Pending, and Scheduled Orders This section includes a listing of several types of active, pending, and scheduled orders, including clinic medications orders, diagnostic test orders, procedure orders and consult orders; where the start date of the order is 45 days before the date of the Encounter or 45 days after the date of theEncounter. The data comes from all [facility] facilities. Test Date/Time Test Type Test Details Facility Name Nov 26, 2024 12:00 AM Laboratory - Chemistry Order CBC BLOOD [facility] Nov 26, 2024 12:00 AM Laboratory - Chemistry Order COMPREHENSIVE METABOLIC PANEL GREEN LI/HEP BLD/PLAS PLASMA [facility] Nov 26, 2024 12:00 AM Laboratory - Chemistry Order LIPID PANEL (STL) GREEN LI/HEP BLD/PLAS PLASMA [facility] Nov 26, 2024 12:00 AM Laboratory - Chemistry Order AMYLASE GREEN LI/HEP BLD/PLAS PLASMA [facility] Nov 26, 2024 12:00 AM Laboratory - Chemistry Order LIPASE GREEN LI/HEP BLD/PLAS PLASMA [facility] Social History: Smoking Status (Most current) and Tobacco Use (All prior to encounter date) This section includes the most current, and the historical, smoking and tobacco- related health factors from the [place] facility where the Encounter took place. Current Smoking Status This section includes the most current smoking, or tobacco-related health factor, from the [place] facility where the Encounter took place. Date/Time Current Smoking Status Meri su Jun 05, 2023 11:00 AM VA-TOBACCO USER SOME DAYS [facility] Tobacco Use History This section includes a history of the smoking, or tobacco-related health factors, that were collected on or before the date of the Encounter. The data comes from the [place] facility where the Encounter took place. Date/Time Smoking Status/Tobacco Use Comment F acility Jun 05, 2023 11:00 AM VA-TOBACCO USE 5 TO 15 YEARS [facility] Jun 05, 2023 11:00 AM VA-TOBACCO USE ADVICE [facility] Jun 05, 2023 11:00 AM VA-TOBACCO USE LACTATION CONSULTANT NO [facility] Jun 05, 2023 11:00 AM VA-TOBACCO USE MED NO [facility] Jun 05, 2023 11:00 AM VA-TOBACCO USER SOME DAYS [facility] April 16, 2022 03:00 PM VA-TOBACCO FORMER USER [facility] April 16, 2022 03:00 PM VA-TOBACCO QUIT < 1 YEAR [facility] Nov 14, 2020 09:38 AM VA-TOBACCO USE 1 TO < 5 YEARS [facility] Nov 14, 2020 09:38 AM VA-TOBACCO USE ADVICE [facility] Nov 14, 2020 09:38 AM VA-TOBACCO USE LACTATION CONSULTANT NO [facility] Nov 14, 2020 09:38 AM VA-TOBACCO USE MED NO [facility] Nov 14, 2020 09:38 AM VA-TOBACCO USE WI 30 MIN OF WAKEUP [facility] Nov 14, 2020 09:38 AM VA-TOBACCO USER EVERY DAY [facility] Feb 08, 2019 10:08 AM VA-TOBACCO FORMER USER [facility] Feb 08, 2019 10:08 AM VA-TOBACCO QUIT 1 TO < 5 YRS [facility] Oct 17, 2017 03:25 PM CURRENT TOBACCO USER [facility] Oct 17, 2017 03:25 PM CURRENT TOBACCO US ER (NOT READY TO QUIT) [facility] Oct 17, 2017 03:25 PM TOBACCO CESSATION REFERRAL DECLINED [facility] Oct 17, 2017 03:25 PM TOBACCO MEDS OFFER ED BUT DECLINED [facility] Oct 17, 2017 03:25 PM TOBACCO USER OFFERED MEDS [facility] Jul 02, 2017 03:19 PM CURRENT TOBACCO USER [facility] Advance Directives: All historical and current Section Date Range: From patient's date of to the date document was created. This section includes ALL of a patient's completed or amended [place] Advance and Rescinded Directives. The entries below indicate that a directive exists for the patient, but an actual copy is not included with this document. The data comes from all [place] facilities. Date Advance Directives Provider Source May 07, 2023 ADVANCE DIRECTIVE CHANDLERNATASHA VOGTCe Garcia [facility] Radiology Reports: +/- 30 days of [...] the Encounter. The data comes from all [place] treatment facilities. Date/Time Radiology Report Provider Source Dec 15, 2024 02:48 PM SPINE CERVICAL 2 O R 3 VIEWS: ELEONORA TABARES [id number] -1980 M Exm Date: DEC 15, 2024@14:48 Req Phys: JOSUE NGO Loc: [facility] E PCP (Req'g Loc) Img Loc: -MAIN RADIOLOGY SUITE Service: [address] [address] (Case [id number] COMPLETE) SPINE CERVICAL 2 OR 3 VIEWS (RAD Detailed) CPT:51896 Reason for Study: Chronic pain Clinical History: Report Status: Verified Date Reported: DEC 16, 2024 Date Verified: DEC 16, 2024 Cattle Sticker E-Sig:/ES/MERCED CONNOLLY MD Report: Case #[id number]. Cervical spine examination. Finding: AP and lateral views of the cervical spine followed by open mouth odontoid view shows normal alignment. Mild disc space narrowing at the C5-6. Other intervertebral disc spaces are unremarkable. No evidence of loss of vertebral height. No abnormal prevertebral soft tissue swelling. The atlantoaxial alignment is satisfactory. Impression: Mild disc space narrowing at the C5-6. Otherwise within normal limit. Primary Interpreting Staff: MERCED CONNOLLY MD, Staff Physician - Radiologist (Cattle Sticker) /MERCED RODRIGUEZ [facility] Dec 15, 2024 02:48 PM SPINE LUMBOSACRAL 2 OR 3 VIEWS: RAYSHAWNELEONORA SY [id number] -1980 M Exm Date: DEC 15, 2024@14:48 Req Phys: JOSUE NGO Loc: [facility] PACT E PCP (Req'g Loc) Img Loc: [facility] RADIOLOGY SUITE Service: Unknown [address] [address] (Case [id number] COMPLETE) SPINE LUMBOSACRAL 2 OR 3 VIEWS (RAD Detailed) CPT:65487 Reason for Study: Pain Clinical History: Report Status: Verified Date Reported: DEC 16, 2024 Date Verified: DEC 16, 2024 Cattle Sticker E-Sig:/ES/MERCED CONNOLLY MD Report: Case #[id number]. Lumbar spine examination. Finding: AP and lateral views of the lumbar spine followed by cone-down lateral view of the lumbosacral junction shows normal alignment. No significant disc space narrowing or loss of vertebral height. No evidence of spondylolisthesis. No evidence of lytic or blastic bony lesion. Impression: Study appear within normal limit. Primary Interpreting Staff: MERCED CONNOLLY MD, Staff Physician - Radiologist (Cattle Sticker) /MERCED RODRIGUEZ [facility] Dec 15, 2024 02:08 PM MRI SPINE LUMBAR W /O CONT: RAYSHAWNELEONORA LUNA [id number] -1980 M Exm Date: DEC 15, 2024@14:08 Req Phys: JOSUE NGO Loc: [facility] PACT E PCP (Req'g Loc) Img Loc: [facility] Service: [place] [address] [address] (Case [id number] COMPLETE) MRI SPINE LUMBAR W/O CONT (MRI Detailed) CPT:13431 Reason for Study: Chronic back pain Clinical History: Has this patient had a plain film x-ray of this associated spine within the past 6 months? No If the above answer is no, please order an x-ray of the associated spine along with the MRI. These studies will be performed during the same patient encounter. Date of plain film x-ray performed? Nov Responsible Attending: ilda Attending Contact Number: [phone] Resident Contact Number: Does your patient have an implanted device or hardware? (Any prosthesis, implant, shrapnel or bullet fragments) No Does your patient have any of the following (Please check all that apply) [ ] Pacemaker [ ] AICD [ ] Neuro-stimulator [ ] Bone Growth Stimulator [ ] Pain Pump [ ] Insulin Pump [ ] Cochlear Implant [ ] Ocular Implant [ ] Aneurysm Clip [ ] Vascular Clip Any other type of implant, please explain Does your patient have a Coronary Stent: No Does your patient have a an artificial Heart Valve: No Were any of the following intravascular implanted devices inserted less than 6 weeks ago: Stent No IVC Filter No Embolization Coils No Is your patient's weight >350lbs or abdominal and shoulder width >60cm? No Does your patient have Renal Failure, Chronic or Acute Renal Disease? No If ordering a contrasted enhanced MRI, you will be required to complete the order for creatine eGFR which is located at the bottom of the MRI ordering screen. If your patient is 60 years or older, the patient will need a recent eGFR within 30 days prior to the exam. NOTE: Incorrectly answering these questions may result in a delay in the procedure. A patient with a device or implant does not automatically mean the patient cannot receive an MRI. If your patient will have difficulty with a confined space, the provider will be responsible for ordering a sedation prior to the procedure, or to order an alternative procedure. In the event this patient needs referred to Community Care: Does this patient have mobility issues that will require additional assistance at the imaging center? No If yes, please provide specifics: Does this patient require an open bore MRI due to claustrophobia? No Has a close bore MRI with oral sedation been tried? No This order requests: Without Contrast Report Status: Verified Date Reported: DEC 16, 2024 Date Verified: DEC 16, 2024 Cattle Sticker E-Sig:/ES/SHANKAR MUJICA Report: MRI SPINE LUMBAR W/O CONT [id number] HISTORY: Chronic back pain COMPARISON: Lumbar MRI 05/09/2023 TECHNIQUE: Sagittal T1, T2 and STIR; axial T2 FINDINGS: No lumbar compression fracture. Disc space heights are normally maintained but there is partial disc desiccation at L4-5 and L5-S1. Grade 1 posterior listhesis at L5-S1 as before. Mild facet osteoarthritis at L4-L5 and L3-L4. T12-L1: There is no significant disc bulging, disc protrusion or spinal canal or neural foraminal stenosis. L1-L2: There is no significant disc bulging, disc protrusion or spinal canal or neural foraminal stenosis. L2-L3: There is no significant disc bulging, disc protrusion or spinal canal or neural foraminal stenosis. L3-L4: There is no significant disc bulging, disc protrusion or spinal canal or neural foraminal stenosis. L4-L5: Progressive increase in the extent of an asymmetric left paracentral disc bulge which mildly impinges on the anterior CSF space resulting in mild spinal canal stenosis. The bulging disc abuts the exiting left L4 nerve root in the extraforaminal zone. Mild left neural foraminal stenosis. L5-S1:Central disc bulging as before without significant spinal canal stenosis. Small annular tear/fissure in the right central disc again noted. Mild bilateral neural foraminal stenosis. Impression: Lumbar spine degenerative disc disease as detailed above. Primary Interpreting Staff: SHANKAR MUJICA, RADIOLOGIST (Cattle Sticker) /SHANKAR CAMACHO [facility] Dec 15, 2024 02:08 PM MRI SPINE CERVICAL W/O CONT: ELEONORA TABARES [id number] -1980 M Exm Date: DEC 15, 2024@14:08 Req Phys: JOSUE NGO Pat Loc: [facility] PACT E PCP (Yonis'misael Loc) Img Loc: [facility] Service: Unknown [facility] [address] [place] [address] (Case [id number] COMPLETE) MRI SPINE CERVICAL W/O CONT (MRI Detailed) CPT:95374 Reason for Study: Chronic neck pain Clinical History: Has this patient had a plain film x-ray of this associated spine within the past 6 months? No If the above answer is no, please order an x-ray of the associated spine along with the MRI. These studies will be performed during the same patient encounter. Date of plain film x-ray performed? Nov Does your patient have an implanted device or hardware? (Any prosthesis, implant, shrapnel or bullet fragments) No Does your patient have any of the following (Please check all that apply) [ ] Pacemaker [ ] AICD [ ] Neuro-stimulator [ ] Bone Growth Stimulator [ ] Pain Pump [ ] Insulin Pump [ ] Cochlear Implant [ ] Ocular Implant [ ] Aneurysm Clip [ ] Vascular Clip Any other type of implant, please explain Does your patient have a Coronary Stent: No Does your patient have a an artificial Heart Valve: No Were any of the following intravascular implanted devices inserted less than 6 weeks ago: Stent No IVC Filter No Embolization Coils No Is your patient's weight >350lbs or abdominal and shoulder width >60cm? No Does your patient have Renal Failure, Chronic or Acute Renal Disease? No If ordering a contrasted enhanced MRI, you will be required to complete the order for creatine eGFR which is located at the bottom of the MRI ordering screen. If your patient is 60 years or older, the patient will need a recent eGFR within 30 days prior to the exam. NOTE: Incorrectly answering these questions may result in a delay in the procedure. A patient with a device or implant does not automatically mean the patient cannot receive an MRI. If your patient will have difficulty with a confined space, the provider will be responsible for ordering a sedation prior to the procedure, or to order an alternative procedure. In the event this patient needs referred to Community Care: Does this patient have mobility issues that will require additional assistance at the imaging center? No If yes, please provide specifics: Does this patient require an open bore MRI due to claustrophobia? No Has a close bore MRI with oral sedation been tried? No This order requests: Without Contrast Report Status: Verified Date Reported: DEC 18, 2024 Date Verified: DEC 18, 2024 Cattle Sticker E-Sig:/ES/Sierra Figueroa MD Report: CASE #: [id number] DATE:12/15/2024 4:34 PM CLINICAL HISTORY:Chronic neck pain COMPARISON: 6 12/15/2024 PROCEDURES: MRI SPINE CERVICAL W/O CONT FINDINGS: Maintained craniocervical, atlantoaxial and cervicothoracic relationships. No Chiari malformation. Slight reversal of the typical cervical lordosis. Disc desiccation at C2-3, C3-4, C4-5 and C5-6. Loss of disc height at C5-6. No marrow edema suspicious for vertebral fracture or contusion. No acute vertebral malalignment suggested. No signal abnormalities in the visualized brainstem, cerebellum or spinal cord. No paraspinal or epidural space fluid collection or mass. No pathologic lymphadenopathy in the visualized neck. C2-3: No significant disc bulge. No significant canal stenosis. No significant facet arthropathy and/or uncovertebral joint hypertrophy. No significant right foraminal narrowing. No significant left foraminal narrowing. C3-4: No significant disc bulge. No significant canal stenosis. Mild facet arthropathy and/or uncovertebral joint hypertrophy. Mild right foraminal narrowing. Mild left foraminal narrowing. C4-5: Broad-based posterior disc bulge. Mild canal stenosis. Bilateral facet arthropathy and/or uncovertebral joint hypertrophy. Mild-moderate right foraminal narrowing. Mild-moderate left foraminal narrowing. C5-6: Broad-based posterior disc bulge. Mild-moderate canal stenosis. Bilateral facet arthropathy and/or uncovertebral joint hypertrophy. Moderate right foraminal narrowing. Mild-moderate left foraminal narrowing. C6-7: No significant disc bulge. No significant canal stenosis. No significant facet arthropathy and/or uncovertebral joint hypertrophy. No significant right foraminal narrowing. No significant left foraminal narrowing. C7-T1: No significant disc bulge. No significant canal stenosis. No significant facet arthropathy and/or uncovertebral joint hypertrophy. No significant right foraminal narrowing. No significant left foraminal narrowing. Impression: Discogenic and other degenerative changes result in spinal canal stenosis and/or neural foraminal narrowing as discussed above. Primary Interpreting Staff: Sierra Figueroa MD, Radiologist (Cattle Sticker) /[facility] Encounter Notes: All associated encounter notes This section contains the clinical notes associated to the Encounter. Date/Time Encounter Note(s) Provider Source Nov 23, 2024 02:15 PM PSYCHIATRY NOTE: LOCAL TITLE: PSYCHIATRY [facility] STANDARD TITLE: PSYCHIATRY NOTE DATE OF NOTE: NOV 23, 2024@14:15 ENTRY DATE: NOV 23, 2024@14:15:20 AUTHOR: YASMANY QUIÑONESIGNER: URGENCY: STATUS: COMPLETED Pt seen and evaluated. Reviewed interval hx. Appt via VV. Pt at home in private area. Reports doing well since last visit. Awarded 100% SC >> many financial stresses resolved. No longer at risk for foreclosure. Able to focus on meaningful, recovery oriented activities to stay busy. States able to utilize self-talk and previous therapy skills for residual sxs. Continues to abstain from EtOH. Working on improving physical health. PCP appt tomororw >> plans to address chronic LBP. Anticipates bilat carpal tunnel repairs in winter 2024. Tolerating mirtaz without adverse effect. Uses 1-2 hydrox daily for anxiety/sleep with benefit. Active Outpatient Medications (including Supplies): Active Outpatient Medications Status === 1) HYDROXYZINE HCL 25MG TAB TAKE ONE TABLET BY MOUTH THREE ACTIVE TIMES A DAY NEEDED *MAY CAUSE DROWSINESS* Indication: FOR ANXIETY 2) MIRTAZAPINE 30MG TAB TAKE ONE-HALF TABLET BY MOUTH AT ACTIVE BEDTIME Indication: FOR DEPRESSION Temperature: 97.9 F [36.6 C] (09/28/2024 11:47) Blood Pressure: 125/88 (09/28/2024 11:47) Pulse: 122 (09/28/2024 11:47) Respirations: 16 (09/28/2024 11:47) Alert, oriented, NAD, appropriately groomed Speech: nml rate, prosody TP: linear, goal directed TC: denies SI/HI/psychosis Mood: feeling like 2024 is going to be good Affect: stable I/J: fair - wants to engage in treatment Impression: 44 year old male with PTSD, AUD + secondary physical problems + mood/anxiety disorders in the context of improving stresses. Limited beenfit from previous tx. Low acute risk of harm with protective factors. Plan: cont mirtaz 15mg targeting sleep + appetite + mood hydroxyzine prn sleep/anxiety encouraged wellness + meaningful activity reviewed [facility] + community resources for urgent care // [facility] contact information discussed medications - risks/dahiana/alt f/u 12 weeks /es/ Yasmany Quiñones M.D. Staff Physician, Psychiatry Signed: 11/23/2024 14:22 YASMANY QUIÑONES [facility]
--- OUTSIDE RECORDS SUMMARY | 2025-06-13 11:58 | XMS_ITS | Encounter Summary ---
Author Name Department [place] Organization [facility] Address [address] [place] [address] Care Team Providers Care Kick Plate Installer Name Role Phone JOSUE NGO Primary Care [...] Patient's Relationship to Policy [facility] JOSE NEGRETE ITY Nov 17, 2018 [id number] Jose TABARES PATIENT [facility] PRESCRIPT ION UHEAL TH Nov 17, 2018 [facility] [id number] Jose TABARES PATIENT [facility] Nov 17, 2018 [id number] [phone] Jose TABARES PATIENT [facility] PREFERRED PROVIDER ORGANIZAT ION (PPO) JOSE NEGRETE ITY Nov 17, 2018 [id number] [phone] Jose TABARES PATIENT Selected Encounter This section includes the information on record at [place] for the Encounter. Date/Time Encounter Type Encounter Description Reason Provider Source Oct 03, 2024 01:46 PM Outpatient Encounter CARDIOLOGY ICD-10-CM Z01.810 Encounter for preprocedural cardiovascular examination ROSERONALD Candice [facility] Encounter Template Text not used by [place] Assessments - Encounter Diagnoses This section includes the primary and secondary diagnoses documented for the Encounter. Date/Time Primary/Secondary Diagnosis Diagnosis Name Provider Source Oct 03, 2024 02:17 PM PRIMARY Encounter for preprocedural cardiovascular examination KWAME ROSE [facility] Oct 03, 2024 02:17 PM SECONDARY Palpitations KWAME ROSE [facility] Plan of Treatment: Future Appointments (+ 6 months) and Future Tests (+/- 45 days) The Plan of Treatment section includes future care activities for the patient from all [facility]. This section includes future appointments and future orders which are active, pending or scheduled. Future Appointments This section includes appointments that were scheduled to occur 6 months from the date of the Encounter, up to a maximum of 20 appointments. The data comes from all [place] treatment facilities. Appointment Date/Time Appointment Type Appointme nt Facility Name Nov 18, 2024 11:30 AM AMBULATORY - MEDICINE [facility] Nov 23, 2024 02:00 PM AMBULATORY - PSYCHIATRY [facility] Nov 26, 2024 10:00 AM AMBULATORY - MEDICINE [facility] Dec 15, 2024 02:00 PM AMBULATORY - NONE [facility] Dec 20, 2024 09:20 AM AMBULATORY - MEDICINE [facility] Jan 11, 2025 09:40 AM AMBULATORY - SURGERY [facility] Jan 24, 2025 10:40 AM AMBULATORY - MEDICINE [facility] Jan 24, 2025 12:35 PM AMBULATORY - MEDICINE [facility] Feb 21, 2025 12:30 PM AMBULATORY - PSYCHIATRY [facility] Mar 08, 2025 02:00 PM AMBULATORY - MEDICINE [facility] Active, Pending, and Scheduled Orders This section includes a listing of several types of active, pending, and scheduled orders, including clinic medications orders, diagnostic test orders, procedure orders and consult orders; where the start date of the order is 45 days before the date of the Encounter or 45 days after the date of theEncounter. The data comes from all [place] treatment facilities. Test Date/Time Test Type Test Details Facility Name Oct 03, 2024 12:00 AM Laboratory - Chemi stry Order CBC BLOOD SP [facility] Oct 03, 2024 12:00 AM Laboratory - Chemi stry Order BASIC METABOLIC PANEL GREEN LI/HEP BLD/PLAS PLASMA SP [facility] Social History: Smoking Status (Most current) and Tobacco Use (All prior to encounter date) This section includes the most current, and the historical, smoking and tobacco- related health factors from the [place] facility where the Encounter took place. Current Smoking Status This section includes the most current smoking, or tobacco-related health factor, from the [place] facility where the Encounter took place. Date/Time Current Smoking Status Comment Facil ity Aug 05, 2024 11:55 AM [place]-TOBACCO FORMER USER [facility] Tobacco Use History This section includes a history of the smoking, or tobacco-related health factors, that were collected on or before the date of the Encounter. The data comes from the [place] facility where the Encounter took place. 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 Jul 20, 2010 10:35 AM QUIT TOBACCO IN TH E LAST 12 MONTHS [facility] Advance Directives: All historical and current Section Date Range: From patient's date of to the date document was created. This section includes ALL of a patient's completed or amended [place] Advance and Rescinded Directives. The entries below indicate that a directive exists for the patient, but an actual copy is not included with this document. The data comes from all [place] facilities. Date Advance Directives Provider Source May 07, 2023 ADVANCE DIRECTIVE DARLEEN ENRIQUEZ Jose [facility] Encounter Notes: All associated encounter notes This section contains the clinical notes associated to the Encounter. Date/Time Encounter Note(s) Provider Source Oct 03, 2024 01:46 PM CONSULT: LOCAL TITLE: E-CONSULT CARDIOLOGY OUTPT [facility] [...] only. ECG Date Verified: Sep 29, 2024@19:14:31 27773.2 Ventricular Rate: 111 BPM 03556.3 Atrial Rate: 111 BPM 73997.4 P-R Interval: 134 ms 58646.5 QRS Duration: 92 ms 08135.6 Q-T Interval: 344 ms 91390 QTC Calculation(Bazett)467 ms 25153.12 Calculated P [place]: 69 degrees 62223.13 Calculated R [place]: 59 degrees 71943.14 Calculated T [place]: 38 degrees Sinus tachycardia Otherwise normal ECG When compared with ECG of 15-MAR-2024 12:35, Nonspecific T wave abnormality no longer evident in Anterior leads ECG Date Verified: Mar 15, 2024@12:50:36 91260.2 Ventricular Rate: 88 BPM 81202.3 Atrial Rate: 88 BPM 52750.4 P-R Interval: 144 ms 89895.5 QRS Duration: 100 ms 41756.6 Q-T Interval: 384 ms 85213 QTC Calculation(Bazett)464 ms 22627.12 Calculated P [place]: 40 degrees 96182.13 Calculated R [place]: 12 degrees 66697.14 Calculated T [place]: 13 degrees Normal sinus rhythm 48-hour Ambulatory [...] Nurse Practitioner Signed: 10/03/2024 14:18 KWAME ROSE [facility]
--- OUTSIDE RECORDS SUMMARY | 2025-06-13 11:58 | XMS_ITS | Encounter Summary ---
Author Name Department of [place] Organization [facility] Address [address] [place] [address] Care Team Providers Care Pari Mutuel Clerk Name Role Phone JOSUE NGO Primary Care [...] HOSPITAL Jose NEGRETE ITY Nov 17, 2018 [id number] Jose TABARES PATIENT [facility] PRESCRIPT ION UHEAL TH Nov 17, 2018 [facility] [id number] Jose TABARES PATIENT [facility] Jose NEGRETE ITY Nov 17, 2018 [id number] [phone] Jose TABARES PATIENT [facility] PREFERRED PROVIDER ORGANIZAT ION (PPO) JOSE MONDRAGONUR ITY Nov 17, 2018 [id number] [phone] Jose TABARES PATIENT Selected Encounter This section includes the information on record at [place] for the Encounter. Date/Time Encounter Type Encounter Description Reason Provider Source Aug 06, 2024 12:30 PM OFFICE O/P EST MOD 30 MIN [facility] - IND ICD-10-CM F32.89 Other specified depressive episodes TERRA QUIÑONES [facility] Encounter Template Text not used by [place] Assessments - Encounter Diagnoses This section includes the primary and secondary diagnoses documented for the Encounter. Date/Time Primary/Secondary Diagnosis Diagnosis Name Provider Source Aug 06, 2024 12:47 PM PRIMARY Other specified depressive episodes TERRA QUIÑONES [facility] Aug 06, 2024 12:47 PM SECONDARY Post-traumatic stress disorder, acute TERRA QUIÑONES [facility] Plan of Treatment: Future Appointments (+ 6 months) and Future Tests (+/- 45 days) The Plan of Treatment section includes future care activities for the [facility] [place] [facility] This section includes future appointments and [...] 18, 2024 11:00 AM AMBULATORY - MEDICINE [facility] Sep 06, 2024 02:30 PM AMBULATORY - PSYCHIATRY [facility] Sep 28, 2024 11:40 AM AMBULATORY - SURGERY [facility] Nov 18, 2024 11:30 AM AMBULATORY - MEDICINE [facility] Nov 23, 2024 02:00 PM AMBULATORY - PSYCHIATRY [facility] Nov 26, 2024 10:00 AM AMBULATORY - MEDICINE [facility] Dec 15, 2024 02:00 PM AMBULATORY - NONE [facility] Dec 20, 2024 09:20 AM AMBULATORY - MEDICINE [facility] Jan 11, 2025 09:40 AM AMBULATORY - SURGERY [facility] Jan 24, 2025 10:40 AM AMBULATORY - MEDICINE [facility] Jan 24, 2025 12:35 PM AMBULATORY - MEDICINE [facility] Social History: Smoking Status [...] 2023 11:00 AM [place]-TOBACCO USER SOME DAYS [facility] Tobacco Use History This section includes a history of the smoking, or tobacco-related health factors, that were collected on or before the date of the Encounter. The data comes from the [place] facility where the Encounter took place. 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 AGENCY MANAGER NO [facility] Jun 05, 2023 11:00 AM VA-TOBACCO USE MED NO [facility] Jun 05, 2023 11:00 AM VA-TOBACCO USER SOME DAYS [facility] April 16, 2022 03:00 PM VA-TOBACCO FORMER USER [facility] April 16, 2022 03:00 PM VA-TOBACCO QUIT < 1 YEAR [facility] Nov 14, 2020 09:38 AM VA-TOBACCO USE 1 TO < 5 YEARS [facility] Nov 14, 2020 09:38 AM VA-TOBACCO USE ADVICE [facility] Nov 14, 2020 09:38 AM VA-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 AGENCY 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 [facility] Nov 14, 2020 09:38 AM VA-TOBACCO USE MED NO [facility] Nov 14, 2020 09:38 AM VA-TOBACCO USE [place] 30 MIN OF WAKEUP [facility] Nov 14, 2020 09:38 AM VA-TOBACCO USER EVERY DAY [facility] Feb 08, 2019 10:08 AM VA-TOBACCO FORMER USER [facility] Feb 08, 2019 10:08 AM VA-TOBACCO QUIT 1 TO < 5 YRS [facility] Oct 17, 2017 03:25 PM CURRENT TOBACCO USER [facility] Oct 17, 2017 03:25 PM CURRENT TOBACCO US ER (NOT READY TO QUIT) [facility] Oct 17, 2017 03:25 PM TOBACCO CESSATION REFERRAL DECLINED [facility] Oct 17, 2017 03:25 PM TOBACCO MEDS OFFER ED BUT DECLINED [facility] Oct 17, 2017 03:25 PM TOBACCO USER OFFERED MEDS [facility] Jul 02, 2017 03:19 PM CURRENT TOBACCO USER [facility] Advance Directives: All historical and current Section [...] May 07, 2023 ADVANCE DIRECTIVE DARLEEN ENRIQUEZ [facility] Encounter Notes: All associated encounter notes This section contains the clinical notes associated to the Encounter. Date/Time Encounter Note(s) Provider Source Aug 06, 2024 12:37 PM PSYCHIATRY NOTE: LOCAL TITLE: PSYCHIATRY [facility] [...] effects. Has not used other resources >> [facility], vet center. States he is doing well [...] mood/anxiety disorders presents to re-establish care with [facility]. Doing better with no EtOH + mirtazipine [...] Physician, Psychiatry Signed: 08/06/2024 12:47 MARIANO QUIÑONES [facility]
--- OUTSIDE RECORDS SUMMARY | 2025-06-13 11:58 | XMS_ITS | Encounter Summary ---
Author Name Department of [facility]a Affairs ([place]) [facility] Address [address] [place] [address] Care Team Providers Care Paste Mixer Liquid Name Role Phone JOSUE SCHILLING Primary Care [...] Policy Cano [facility] Jose NEGRETE ITY Nov 17, 2018 [id number] Jose TABARES PATIENT [facility] RX PRESCRIPT ION UHEAL TH Nov 17, 2018 [facility] [id number] Jose TABARES PATIENT [facility] Jose NEGRETE ITY Nov 17, 2018 [id number] [phone] Jose TABARES PATIENT [facility] PREFERRED PROVIDER ORGANIZAT ION (PPO) JOSE Garcia SECUR ITY Nov 17, 2018 [id number] [phone] Jose TABARES PATIENT Selected Encounter This section includes the information on record at ID for the Encounter. Date/Time Encounter Type Encounter Description Reason Provider Source Mar 08, 2025 02:00 PM OFFICE O/P EST MOD 30 MIN PRIMARY CARE/MEDICINE ICD-10-CM K21.9 Gastro-esophageal reflux disease without esophagitis JOSUE SCHILLING [facility] Encounter Template Text not used by ID Assessments - Encounter Diagnoses This section includes the primary and secondary diagnoses documented for the Encounter. Date/Time Primary/Secondary Diagnosis Diagnosis Name Provider Source Mar 11, 2025 12:43 PM PRIMARY Gastro-esophageal reflux disease [facility]ophagitis [facility] Mar 11, 2025 12:43 PM SECONDARY Alcohol use, unspecified with intoxication, uncomplicated [facility] Mar 11, 2025 12:43 PM SECONDARY Carpal tunnel syndrome, bilateral upper limbs [facility] Mar 11, 2025 12:43 PM SECONDARY Elevated blood-pressure reading, w/o diagnosis of htn [facility] Mar 11, 2025 12:43 [address] [facility] Mar 11, 2025 12:43 PM SECONDARY Other specified depressive episodes [facility] Mar 11, 2025 12:43 PM SECONDARY Pain, unspecified [facility] Mar 11, 2025 12:43 PM SECONDARY Post-traumatic stress disorder, unspecified [facility] Mar 11, 2025 12:43 [address] Tobacco use [facility] Plan of Treatment: Future Appointments (+ 6 months) and Future Tests (+/- 45 days) The Plan of Treatment section includes future care activities for the patient from all [facility]. This section includes future appointments and future orders which are active, pending or scheduled. Future Appointments This section includes appointments that were scheduled to occur 6 months from the date of the Encounter, up to a maximum of 20 appointments. The data comes from all [facility]. Appointment Date/Time Appointment Type Appointme nt Facility Name April 06, 2025 01:15 PM AMBULATORY - MEDICINE [facility] May 10, 2025 11:20 AM AMBULATORY - SURGERY [facility] May 11, 2025 01:30 PM AMBULATORY - MEDICINE [facility] May 17, 2025 02:40 PM AMBULATORY - MEDICINE [facility] May 19, 2025 11:00 AM AMBULATORY - NONE . [facility] May 23, 2025 02:00 PM AMBULATORY - PSYCHIATRY [facility] May 24, 2025 10:40 AM AMBULATORY - SURGERY [facility] Jun 08, 2025 10:40 AM AMBULATORY - SUR[facility]ERY [facility] Jun 15, 2025 10:15 AM AMBULATORY - MEDICINE [facility] Jun 21, 2025 02:30 PM AMBULATORY - PSYCHIATRY [facility] Aug 17, 2025 02:00 PM AMBULATORY - MEDICINE [facility] Active, Pending, and Scheduled Orders This section includes a listing of several types of active, pending, and scheduled orders, including clinic medications orders, diagnostic test orders, procedure orders and consult orders; where the start date of the order is 45 days before the date of the Encounter or 45 days after the date of theEncounter. The data comes from all [facility]. Test Date/Time Test Type Test Details Facility Name Mar 11, 2025 12:00 AM Laboratory - Chemistry Order CBC BLOOD [facility] Mar 11, 2025 12:00 AM Laboratory - Chemistry Order COMPREHENSIVE METABOLIC PANEL GREEN LI/HEP BLD/PLAS PLASMA [facility] Mar 11, 2025 12:00 AM Laboratory - Chemistry Order TSH (MA-PB) GOLD/RED SST SERUM SP [facility] Mar 11, 2025 12:00 AM Laboratory - Chemistry Order [id number] BLOOD [facility] Mar 11, 2025 12:00 AM Laboratory - Chemistry Order LIPID PANEL (STL) GREEN LI/HEP BLD/PLAS PLASMA [facility] Social History: Smoking Status (Most [...] 2023 11:00 AM VA-TOBACCO USER SOME DAYS [facility] Tobacco Use History This section includes a history of the smoking, or tobacco-related health factors, that were collected on or before the date of the Encounter. The data comes from the [place] facility where the Encounter took place. 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 [facility] Jun 05, 2023 11:00 AM VA-TOBACCO USE MED NO [facility] Jun 05, 2023 11:00 AM VA-TOBACCO USER SOME DAYS [facility] April 16, 2022 03:00 PM VA-TOBACCO FORMER USER [facility] April 16, 2022 03:00 PM VA-TOBACCO QUIT < 1 YEAR [facility] Nov 14, 2020 09:38 AM VA-TOBACCO USE 1 TO < 5 YEARS [facility] Nov 14, 2020 09:38 AM VA-TOBACCO USE ADVICE [facility] Nov 14, 2020 09:38 AM VA-TOBACCO USE LICENSED MENTAL HEALTH COUNSELOR NO [facility] Nov 14, 2020 09:38 AM VA-TOBACCO USE MED NO [facility] Nov 14, 2020 09:38 AM VA-TOBACCO USE WI 30 MIN OF WAKEUP [facility] Nov 14, 2020 09:38 AM VA-TOBACCO USER EVERY DAY [facility] Feb 08, 2019 10:08 AM VA-TOBACCO FORMER USER [facility] Feb 08, 2019 10:08 AM VA-TOBACCO QUIT 1 TO < 5 YRS [facility] Oct 17, 2017 03:25 PM CURRENT TOBACCO USER [facility] Oct 17, 2017 03:25 PM CURRENT TOBACCO US ER (NOT READY TO QUIT) [facility] Oct 17, 2017 03:25 PM TOBACCO CESSATION REFERRAL DECLINED [facility] Oct 17, 2017 03:25 PM TOBACCO MEDS OFFER ED BUT DECLINED [facility] Oct 17, 2017 03:25 PM TOBACCO USER OFFERED MEDS [facility] Jul 02, 2017 03:19 PM CURRENT TOBACCO USER [facility] Advance Directives: All historical [...] 07, 2023 ADVANCE DIRECTIVE DARLEEN ENRIQUEZ [facility] Encounter Notes: All associated encounter notes This section contains the clinical notes associated to the Encounter. Date/Time Encounter Note(s) Provider Source Mar 11, 2025 12:43 PM ADDENDUM: LOCAL TITLE: Addendum STANDARD TITLE: ADDENDUM DATE OF NOTE: MAR 11, 2025@12:43:52 ENTRY DATE: MAR 11, 2025@12:43:53 AUTHOR: JOSUE SCHILLING EXP COSIGNER: URGENCY: STATUS: COMPLETED RTC 1 month video visit /loyda/ Josue Schilling MD Staff Physician Signed: 03/11/2025 12:44 Receipt Acknowledged By: 03/22/2025 08:57 /loyda/ DALLAS YOUNG MSA --- Original Document --- 03/08/25 PRIMARY CARE VIDEO CONNECT STL: Medicine Provider [...] / HPI : routine f/u video visit. According to he still drinking alcohol on and off. Reports overwhelming stress and anxiety b/c of multiple physical health + financial issues. Lost about 20lbs over past year. Problems keeping food + fluids down without emesis. Dec energy + function during this time. Spending much of the day asleep on couch. GI w/u ongoing - scheduled for scope in weeks. Denies any other complaint today Allergies: NKDA [...] in detail with the patient. - Hypokalemia: Renal consult done. - Chronic back and neck pain: - Stomach discomfort/GERD: Follows with GI, plan for EGD next month. Avoid NSAID for now. Continue omeprazole for now. - bilateral carpal tunnel syndrome. Follows with plastic surgery. Plan for surgery. - Elevated BP : plan for low salt diet. [place] will call us back in few weeks for blood pressure log book - PTSD / Depression / anxiety / ADHD /insomnia: No SI, no HI. sees mental health. Continue medication for now. - ETHO Use : counselling was done again, refused for any help. - Tobacco use: counseling was done. Plan: Need to come for fasting lab. RTC 1 month video visit If any Chest pain, ,SOB, headache, dizziness, [...] this VA (local) and dispensed from another ID or DoD facility (remote) as well as inpatient orders (local pending and active), local clinic medications, locally documented non-VA medications, and local prescriptions that have or been discontinued in the past 90 days.) with the patient and/or his/her care-inserting operator. Handwritten corrections, additions and/or deletions were made to the list, as appropriate. Corrected Outpatient Medication List was provided to the patient/caregiver. /loyda/ Josue Schilling MD Staff Physician Signed: 03/11/2025 12:43 JOSUE SCHILLING [facility] Mar 08, 2025 02:29 PM TELEHEALTH NOTE: LOCAL TITLE: PRIMARY CARE VIDEO CONNECT STL STANDARD TITLE: TELEHEALTH NOTE DATE OF NOTE: MAR 08, 2025@14:29 ENTRY DATE: MAR 08, 2025@14:29:13 AUTHOR: JOSUE SCHILLING EXP COSIGNER: URGENCY: STATUS: [...] / HPI : routine f/u video visit. According to he still drinking alcohol on and off. Reports overwhelming stress and anxiety b/c of multiple physical health + financial issues. Lost about 20lbs over past year. Problems keeping food + fluids down without emesis. Dec energy + function during this time. Spending much of the day asleep on couch. GI w/u ongoing - scheduled for scope in weeks. Denies any other complaint today Allergies: NKDA [...] in detail with the patient. - Hypokalemia: Renal consult done. - Chronic back and neck pain: - Stomach discomfort/GERD: Follows with GI, plan for EGD next month. Avoid NSAID for now. Continue omeprazole for now. - bilateral carpal tunnel syndrome. Follows with plastic surgery. Plan for surgery. - Elevated BP : plan for low salt diet. [place] will call us back in few weeks for blood pressure log book - PTSD / Depression / anxiety / ADHD /insomnia: No SI, no HI. sees mental health. Continue medication for now. - ETHO Use : counselling was done again, refused for any help. - Tobacco use: counseling was done. Plan: Need to come for fasting lab. RTC 1 month video visit If any Chest pain, ,SOB, headache, dizziness, [...] 90 days.) with the patient and/or his/her care-inserting operator. Handwritten corrections, additions and/or deletions were made to the list, as appropriate. Corrected Outpatient Medication List was provided to the patient/caregiver. /loyda/ Josue Schilling MD Staff Physician Signed: 03/11/2025 12:43 03/11/2025 ADDENDUM STATUS: COMPLETED RTC 1 month video visit /saranya Schilling MD Staff Physician Signed: 03/11/2025 12:44 Receipt Acknowledged By: * AWAITING SIGNATURE * DALLAS YOUNG ASHA [facility]
--- OUTSIDE RECORDS SUMMARY | 2025-06-13 11:58 | XMS_ITS | Encounter Summary ---
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 Name Role Phone JOSUE SCHILLING Primary Care [...] Policy Cano [facility] Jose NEGRETE ITY Nov 17, 2018 [id number] [phone] Jose TABARES PATIENT [facility] RX PRESCRIPT ION UHEAL TH Nov 17, 2018 [facility] [id number] Jose TABARES PATIENT [facility] Jose NEGRETE ITY Nov 17, 2018 [id number] [phone] Jose TABARES PATIENT [facility] PREFERRED PROVIDER ORGANIZAT ION (PPO) JOSE MONDRAGONUR ITY Nov 17, 2018 [id number] [phone] Jose TABARES PATIENT Selected Encounter This section includes the information on record at [place] for the Encounter. Date/Time Encounter Type Encounter Description Reason Provider Source May 11, 2025 01:30 PM OFFICE O/P EST MOD 30 MIN PRIMARY CARE/MEDICINE ICD-10-CM K21.9 Gastro-esophageal reflux disease without esophagitis JOSUE SCHILLING Tat[facility] Encounter Template Text not used by [place] Assessments - Encounter Diagnoses This section includes the primary and secondary diagnoses documented for the Encounter. Date/Time Primary/Secondary Diagnosis Diagnosis Name Provider Source May 11, 2025 01:48 PM PRIMARY Gastro-esophageal reflux disease without esophagitis [facility] May 11, 2025 01:48 PM SECONDARY Alcohol use, unspecified with intoxication, uncomplicated [facility] May 11, 2025 01:48 PM SECONDARY Carpal tunnel syndrome, bilateral upper limbs [facility] May 11, 2025 01:48 PM SECONDARY Elevated blood-pressure reading, w/o diagnosis of htn [facility] May 11, 2025 01:48 PM SECONDARY Hypokalemia [facility] May 11, 2025 01:48 PM SECONDARY Other specified depressive episodes [facility] May 11, 2025 01:48 PM SECONDARY Pain, unspecified [facility] May 11, 2025 01:48 PM SECONDARY Post-traumatic stress disorder, unspecified [facility] May 11, 2025 01:48 PM SECONDARY Tobacco use [facility] Plan of Treatment: Future Appointments (+ 6 months) and Future Tests (+/- 45 days) The Plan of Treatment section includes future care activities for the patient from all [facility]. This section includes future appointments and future orders which are active, pending or scheduled. Future Appointments This section includes appointments that were scheduled to occur 6 months from the date of the Encounter, up to a maximum of 20 appointments. The data comes from all [facility]. Appointment Date/Time Appointment Type Appointme nt Facility Name May 17, 2025 02:40 PM AMBULATORY - MEDICINE [facility] May 19, 2025 11:00 AM AMBULATORY - NONE [facility] May 23, 2025 02:00 PM AMBULATORY - PSYCHIATRY [facility] May 24, 2025 10:40 AM AMBULATORY - SURGERY [facility] Jun 08, 2025 10:40 AM AMBULATORY - SURGERY [facility] Jun 15, 2025 10:15 AM AMBULATORY - MEDICINE [facility] Jun 21, 2025 02:30 PM AMBULATORY - PSYCHIATRY [facility] Aug 17, 2025 02:00 PM AMBULATORY - MEDICINE [facility] Active, Pending, and Scheduled Orders This section [...] RENAL PANEL GREEN LI/HEP BLD/PLAS PLASMA SP [facility] Jun 15, 2025 12:00 AM Laboratory - Chemi stry Order MAGNESIUM GREEN LI/HEP BLD/PLAS PLASMA SP [facility] Lab Results: +/- 30 [...] Type Comment May 10, 2025 11:02 AM [facility] BASIC METABOLIC PANEL PLASMA Specimen Type: PLASMA Comment: No hemolysis noted. Ordering Provider: ALE BALTAZAR Report Released Date/Time: May 09, 2025 12:21 PM Reporting Lab: [facility] [address] [facility] [id number] Performing Lab: [facility] [address] [facility] [id number] CREATININE 0.66 mg/dL L 0.7-1.3 UREA NITROGEN 4.1 mg/dL L 9.0-25.0 GLUCOSE 59 mg/dL L 72-99 SODIUM 139 meq/L 136-145 POTASSIUM 3.4 meq/L L 3.5-5 CHLORIDE 104 meq/L 98-107 CARBON DIOXIDE 28 meq/L 22-31 CALCIUM 9.1 mg/dL 8.4-10.4 EGFR (CKD-EPI 2020) 119.4 >60 May 10, 2025 11:02 AM [facility] CBC BLOOD Specimen Type: BLOOD No comment entered. Ordering Provider: ALE BALTAZAR Report Released Date/Time: May 09, 2025 12:21 PM Reporting Lab: [facility] [address] [facility] [id number] Performing Lab: [facility] [address] [facility] [id number] WBC 7.1 10*3/uL 3.6-11.2 RBC 3.92 10*6/uL [...] 2023 11:00 AM VA-TOBACCO USER SOME DAYS [facility] Tobacco Use History This section includes a history of the smoking, or tobacco-related health factors, that were collected on or before the date of the Encounter. The data comes from the [place] facility where the Encounter took place. Date/Time Smoking Status/Tobacco Use Comment F acility Jun 05, 2023 11:00 AM VA-TOBACCO USE 5 TO 15 YEARS [facility] Jun 05, 2023 11:00 AM VA-TOBACCO USE ADVICE [facility] Jun 05, 2023 11:00 AM VA-TOBACCO USE RANCH RIDER NO [facility] Jun 05, 2023 11:00 AM VA-TOBACCO USE MED NO [facility] Jun 05, 2023 11:00 AM VA-TOBACCO USER SOME DAYS [facility] April 16, 2022 03:00 PM VA-TOBACCO FORMER USER [facility] April 16, 2022 03:00 PM VA-TOBACCO QUIT < 1 YEAR [facility] Nov 14, 2020 09:38 AM VA-TOBACCO USE 1 TO < 5 YEARS [facility] Nov 14, 2020 09:38 AM VA-TOBACCO USE ADVICE [facility] Nov 14, 2020 09:38 AM VA-TOBACCO USE RANCH RIDER NO [facility] Nov 14, 2020 09:38 AM VA-TOBACCO USE MED NO [facility] Nov 14, 2020 09:38 AM VA-TOBACCO USE WI 30 MIN OF WAKEUP [facility] Nov 14, 2020 09:38 AM VA-TOBACCO USER EVERY DAY [facility] Feb 08, 2019 10:08 AM VA-TOBACCO FORMER USER [facility] Feb 08, 2019 10:08 AM VA-TOBACCO QUIT 1 TO < 5 YRS [facility] Oct 17, 2017 03:25 PM CURRENT TOBACCO USER [facility] Oct 17, 2017 03:25 PM CURRENT TOBACCO US ER (NOT READY TO QUIT) [facility] Oct 17, 2017 03:25 PM TOBACCO CESSATION REFERRAL DECLINED [facility] Oct 17, 2017 03:25 PM TOBACCO MEDS OFFER ED BUT DECLINED [facility] Oct 17, 2017 03:25 PM TOBACCO USER OFFERED MEDS [facility] Jul 02, 2017 03:19 PM CURRENT TOBACCO USER [facility] Advance Directives: All historical and current Section [...] May 07, 2023 ADVANCE DIRECTIVE DARLEEN ENRIQUEZ [facility] Encounter Notes: All associated encounter notes This section contains the clinical notes associated to the Encounter. Date/Time Encounter Note(s) Provider Source May 11, 2025 01:49 PM ADDENDUM: LOCAL TITLE: Addendum STANDARD TITLE: ADDENDUM DATE OF NOTE: MAY 11, 2025@13:49:53 ENTRY DATE: MAY 11, 2025@13:49:54 AUTHOR: JOSUE SCHILLING EXP COSIGNER: URGENCY: STATUS: COMPLETED RTC 3 month video visit /loyda/ Josue Schilling MD Staff Physician Signed: 05/11/2025 13:50 Receipt Acknowledged By: 05/12/2025 10:18 /loyda/ D[place] YOUNG MSA --- Original Document --- 05/11/25 PRIMARY CARE VIDEO CONNECT STL: Medicine Provider [...] HPI : routine f/u video visit. is following with the mental health provider for PTSD and anxiety. Plan to see renal clinic next week. Follows with plastic surgery for carpal tunnel follow-up. s/p EGD done on April 06, 2025. Doing much better with omeprazole. Plan for repeat EGD next month. is complaining of chronic lower back pain with radiation to the lower extremities on and off. Failed to schedule pain clinic appointment in November 2024. Denies any recent injury or fall. Denies any other complaint today Allergies: NKDA [...] the patient. - Hypokalemia: Renal consult done. Refill on KCl done for 1 week till see renal clinic. - Chronic back and neck pain: Refused for pain clinic consult till next visit. Continue pain medication for now prn. - esophagitis/GERD: Follows with GI,s/p EGD on April 06, 2025, plan for repeat EGD next month. Avoid NSAID for now. [...] - Tobacco use: counseling was done. 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 Handwritten corrections, additions and/or deletions were made to the list, as appropriate. Corrected Outpatient Medication List was provided to the patient/caregiver. /loyda/ Josue Schilling MD Staff Physician Signed: 05/11/2025 13:49 05/12/2025 ADDENDUM STATUS: UNSIGNED You may not VIEW this UNSIGNED Addendum. [facility] May 11, 2025 01:34 PM TELEHEALTH NOTE: LOCAL TITLE: PRIMARY CARE VIDEO CONNECT STL STANDARD TITLE: TELEHEALTH NOTE DATE OF NOTE: MAY 11, 2025@13:34 ENTRY DATE: MAY 11, 2025@13:34:20 AUTHOR: JOSUE SCHILLING EXP COSIGNER: URGENCY: STATUS: [...] / HPI : routine f/u video visit. [place] is following with the mental health provider for PTSD and anxiety. Plan to see renal clinic next week. Follows with plastic surgery for carpal tunnel follow-up. s/p EGD done on April 06, 2025. Doing much better with omeprazole. Plan for repeat EGD next month. [place] is complaining of chronic lower back pain with radiation to the lower extremities on and off. Failed to schedule pain clinic appointment in November 2024. Denies any recent injury or fall. Denies any other complaint today Allergies: NKDA [...] the patient. - Hypokalemia: Renal consult done. Refill on KCl done for 1 week till see renal clinic. - Chronic back and neck pain: Refused for pain clinic consult till next visit. Continue pain medication for now prn. - esophagitis/GERD: Follows with GI,s/p EGD on April 06, 2025, plan for repeat EGD next month. Avoid NSAID for now. Continue omeprazole for now. - bilateral carpal tunnel syndrome. Follows with plastic surgery. Plan for surgery. - Elevated BP : plan for low salt diet. [place] will call us back in few weeks for blood pressure log book - PTSD / Depression / anxiety / ADHD /insomnia: No SI, no HI. sees mental health. Continue medication for now. - ETHO Use : counselling was done again - Tobacco use: counseling was done. 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 Handwritten corrections, additions and/or deletions were made to the list, as appropriate. Corrected Outpatient Medication List was provided to the patient/caregiver. /loyda/ Josue Schilling MD Staff Physician Signed: 05/11/2025 13:49 05/11/2025 ADDENDUM STATUS: COMPLETED RTC 3 month video visit /saranya Schilling MD Staff Physician Signed: 05/11/2025 13:50 Receipt Acknowledged By: 05/12/2025 10:18 /loyda/ DALLAS YOUNG MSA 05/12/2025 ADDENDUM STATUS: COMPLETED SCHEDULED [facility] PCP 08/17/25@14:00 /saranya YOUNG MSA Signed: 05/12/2025 10:19 JOSUE SCHILLING [facility]
--- OUTSIDE RECORDS SUMMARY | 2025-06-13 11:58 | XMS_ITS | Encounter Summary ---
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 Name Role Phone JOSUE SCHILLING Primary Care [...] Policy Cano [facility] Jose NEGRETE ITY Nov 17, 2018 [id number] Jose TABARES PATIENT [facility] RX PRESCRIPT ION UHEAL TH Nov 17, 2018 [facility] [id number] Jose TABARES PATIENT [facility] Jose NEGRETE ITY Nov 17, 2018 [id number] [phone] Jose TABARES PATIENT [facility] PREFERRED PROVIDER ORGANIZAT ION (PPO) JOSE Garcia SECUR ITY Nov 17, 2018 [id number] [phone] Jose TABARES PATIENT Selected Encounter This section includes the information on record at [place] for the Encounter. Date/Time Encounter Type Encounter Description Reason Provider Source Nov 26, 2024 10:00 AM OFFICE O/P EST MOD 30 MIN PRIMARY CARE/MEDICINE ICD-10-CM K21.9 Gastro-esophageal reflux disease without esophagitis ZAYJOSUE HERRING Tatyana Encounter Template Text not used by [place] Assessments - Encounter Diagnoses This section includes the primary and secondary diagnoses documented for the Encounter. Date/Time Primary/Secondary Diagnosis Diagnosis Name Provider Source Nov 26, 2024 02:27 PM PRIMARY Gastro-esophageal reflux disease without esophagitis JENIJOSUE [facility] Nov 26, 2024 02:27 PM SECONDARY Pain, unspecified MARYANJOSUE ALMENDAREZ [facility] Plan of Treatment: Future Appointments (+ 6 months) and Future Tests (+/- 45 days) The Plan of Treatment section includes future care activities for the patient from [facility] [place] [facility] This section includes future appointments and future orders which are active, pending or scheduled. Future Appointments This section includes appointments that were scheduled to occur 6 months from the date of the Encounter, up to a maximum of 20 appointments. The data comes from all [place] treatment facilities. Appointment Date/Time Appointment Type Appointme nt Facility Name Dec 15, 2024 02:00 PM AMBULATORY - NONE [facility] Dec 20, 2024 09:20 AM AMBULATORY - MEDICINE [facility] Jan 11, 2025 09:40 AM AMBULATORY - SURGERY [facility] Jan 24, 2025 10:40 AM AMBULATORY - MEDICINE [facility] Jan 24, 2025 12:35 PM AMBULATORY - MEDICINE [facility] Feb 21, 2025 12:30 PM AMBULATORY - PSYCHIATRY [facility] Mar 08, 2025 02:00 PM AMBULATORY - MEDICINE [facility] April 06, 2025 01:15 PM AMBULATORY - MEDICINE [facility] May 10, 2025 11:20 AM AMBULATORY - SURGERY [facility] May 11, 2025 01:30 PM AMBULATORY - MEDICINE [facility] May 17, 2025 02:40 PM AMBULATORY - MEDICINE [facility] May 19, 2025 11:00 AM AMBULATORY - NONE STJoe Rodriguez [facility] May 23, 2025 02:00 PM AMBULATORY - PSYCHIATRY [facility] May 24, 2025 10:40 AM AMBULATORY - SURGERY [facility] Ramsey CARTER [facility] Active, Pending, [...] of theEncounter. The data comes from all [facility]. Test Date/Time Test Type Test Details Facility Name Nov 26, 2024 12:00 AM Laboratory - Chemistry Order CBC BLOOD [facility] Nov 26, 2024 12:00 AM Laboratory - Chemistry Order COMPREHENSIVE METABOLIC PANEL GREEN LI/HEP BLD/PLAS PLASMA [facility] Nov 26, 2024 12:00 AM Laboratory - Chemistry Order LIPID PANEL (STL) GREEN LI/HEP BLD/PLAS PLASMA [facility] Nov 26, 2024 12:00 AM Laboratory - Chemistry Order AMYLASE GREEN LI/HEP BLD/PLAS PLASMA [facility] Nov 26, 2024 12:00 AM Laboratory - Chemistry Order LIPASE GREEN LI/HEP BLD/PLAS PLASMA [facility] Social History: Smoking Status (Most current) and Tobacco Use (All prior to encounter date) This section includes the most current, and the historical, smoking and tobacco- related health factors from the [place] facility where the Encounter took place. Current Smoking Status This section includes the most current smoking, or tobacco-related health factor, from the [place] facility where the Encounter took place. Date/Time Current Smoking Status Comment Facil ity Jun 05, 2023 11:00 AM VA-TOBACCO USER SOME DAYS [facility] Tobacco Use History This section includes a history of the smoking, or tobacco-related health factors, that were collected on or before the date of the Encounter. The data comes from the [place] facility where the Encounter took place. 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 This section includes ALL of a patient's completed or amended [place] Advance and Rescinded Directives. The entries below indicate that a directive exists for the patient, but an actual copy is not included with this document. The data comes from all [place] facilities. Date Advance Directives Provider Source May 07, 2023 ADVANCE DIRECTIVE DARLEEN NERIQUEZ [facility] Radiology Reports: +/- 30 days of [...] the Encounter. The data comes from all [place] treatment facilities. Date/Time Radiology Report Provider Source Dec 15, 2024 02:48 PM SPINE CERVICAL 2 O R 3 VIEWS: ELEONORA TABARES [id number] -1980 M Exm Date: DEC 15, 2024@14:48 Req Phys: JOSUE SCHILLING Pat Loc: [facility] PACT E PCP (Req'g Loc) Img Loc: [facility] SUITE Service: [address] [address] (Case [id number] COMPLETE) SPINE CERVICAL 2 OR 3 VIEWS (RAD Detailed) CPT:91550 Reason for Study: Chronic pain Clinical History: Report Status: Verified Date Reported: DEC 16, 2024 Date Verified: DEC 16, 2024 Hand Rigger E-Sig:/ES/MERCED CONNOLLY MD Report: Case #[id number]. Cervical [...] MERCED CONNOLLY MD, Staff Physician - Radiologist (Hand Rigger) /TS SEZ[facility]YAN[facility] Dec 15, 2024 02:48 PM SPINE LUMBOSACRAL 2 OR 3 VIEWS: ELEONORA TABARES [id number] -1980 M Exm Date: DEC 15, 2024@14:48 Req Phys: JOSUE SCHILLING Loc: [facility] PACT E PCP (Req'g Loc) Img Loc: -MAIN RADIOLOGY SUITE Service: Unknown [address] [address] (Case [id number] COMPLETE) SPINE LUMBOSACRAL 2 OR 3 VIEWS (RAD Detailed) CPT:12570 Reason for Study: Pain Clinical History: Report Status: Verified Date Reported: DEC 16, 2024 Date Verified: DEC 16, 2024 Hand Rigger E-Sig:/ES/MERCED CONNOLLY MD Report: Case #[id number]. Lumbar [...] MERCED CONNOLLY MD, Staff Physician - Radiologist (Hand Rigger) /[facility] Dec 15, 2024 02:08 PM MRI SPINE LUMBAR W /O CONT: ELEONORA TABARESY [id number] -1980 M Exm Date: DEC 15, 2024@14:08 Req Phys: JOSUE SCHILLING Loc: [facility] PACT E PCP (Req'g Loc) Img Loc: [facility] Service: Unknown [address] [address] (Case [id number] COMPLETE) MRI SPINE LUMBAR W/O CONT (MRI Detailed) CPT:08509 Reason for Study: Chronic back pain Clinical History: Has this patient had a plain film x-ray of this associated spine within the past 6 months? No If the above answer is no, please order an x-ray of the associated spine along with the MRI. These studies will be performed during the same patient encounter. Date of plain film x-ray performed? Nov Responsible Attending: jeni Attending Contact Number: [phone] Resident Contact Number: Does your patient have [...] 16, 2024 Date Verified: DEC 16, 2024 Hand Rigger E-Sig:/ES/SHANKAR MUJICA Report: MRI SPINE LUMBAR W/O CONT [id number] HISTORY: Chronic back pain COMPARISON: Lumbar MRI [...] above. Primary Interpreting Staff: SHANKAR MUJICA, RADIOLOGIST (Hand Rigger) /SHANKAR CAMACHO [facility] Dec 15, 2024 02:08 PM MRI SPINE CERVICAL W/O CONT: ELEONORA TABARES [id number] -1980 M Ex Date: DEC 15, 2024@14:08 Req Phys: JOSUE SCHILLING Loc: [facility] PACT E PCP (Req'g Loc) Img Loc: [facility] Service: Unknown [facility] [address] [place] [address] (Case [id number] COMPLETE) MRI SPINE CERVICAL W/O CONT (MRI Detailed) CPT:23527 Reason for Study: Chronic neck pain Clinical [...] 18, 2024 Date Verified: DEC 18, 2024 Hand Rigger E-Sig:/ES/Sierra Figueroa MD Report: CASE #: [id number] DATE:12/15/2024 4:34 PM CLINICAL HISTORY:Chronic neck pain [...] Primary Interpreting Staff: Sierra Figueroa MD, Radiologist (Hand Rigger) /SIERRA BELLA [facility] Encounter Notes: All associated encounter notes This section contains the clinical notes associated to the Encounter. Date/Time Encounter Note(s) Provider Source Nov 26, 2024 02:14 PM ACCOUNTING OF DISC LOSURES NOTE: LOCAL TITLE: STATE PRESCRIPTION DRUG MONITORING PROGRAM STANDARD TITLE: ACCOUNTING OF DISCLOSURES NOTE DATE OF NOTE: NOV 26, 2024@14:14:29 ENTRY DATE: NOV 26, 2024@14:14:29 AUTHOR: JOSUE SCHILLING EXP COSIGNER: URGENCY: STATUS: COMPLETED This PDMP query was submitted by Josue Schilling MD. The clinical justification for this PDMP query is to review controlled substances prescribed outside of the [place], and any additional information that may become available, as an important component of standard clinical care, and in accordance with [facility] policy. Patient information was shared with the PDMP Appriss [place]. Prescription(s) filled outside the [facility] in the last 90 days are noted. However, they do not raise significant safety concerns and do not influence the treatment plan at this time. /loyda/ Josue Schilling MD Staff Physician Signed: 11/26/2024 14:28 JOSUE SCHILLING [facility] Nov 26, 2024 10:21 AM TELEHEALTH NOTE: LOCAL TITLE: PRIMARY CARE VIDEO CONNECT ST[facility] STANDARD TITLE: TELEHEALTH NOTE DATE OF NOTE: NOV 26, 2024@10:21 ENTRY DATE: NOV 26, 2024@10:21:43 AUTHOR: JOSUE SCHILLING EXP COSIGNER: URGENCY: STATUS: [...] CLBP, insomnia, ADHD. CC / HPI : Video visit today with a complaint of complaining of chronic lower back and leg pain. Denies any recent injury or fall. s/p ER few weeks ago with the back, and discharged home with Flexeril, [place], and a steroid. complaining of stomach discomfort, bloating, with nausea since few months. According his appetite is okay but is scared to eat because of upset his stomach. Last 5 to 10 pound. Taking Prilosec myot-mcw-tblomsa once a day. Denies any blood in the stool. Denies any other complaint today Allergies: NKDA Social History : Tobacco : Using pouch ETHO : Quit few months drugs : marijuina daily Blood Transfusion : no Tattoo : yes Living situation : self Work :no ROS : GENERAL: no fever, no chills PULMONARY: denies SOB , cough , wheezing CARDIAC: denies chest pain, denies palpitations GI: c/o nausea, no vomiting, c/o abd: pain, no diarrhea, no constipation EXT: denies pedal edema, c/o arthritis NEURO : no dizziness, no headache Physical exam : GENERAL: pleasant NEUROLOGICAL: not in acute distress ASSESSMENT/PLAN: The patient's most recent test results and medication list were reviewed in detail with the patient. - Chronic back and neck pain: Plan to start diclofenac gel, Tylenol, methocarbamol, and lidocaine patch for now. Plan for imaging and pain management consult. [place] refused for physical therapy consult. Avoid NSAID for now. - Stomach discomfort/GERD: Plan for omeprazole 40 mg twice a day and GI consult. Avoid NSAID for now. Plan: cont's meds. need to bring all medication bottles at next visit. Medications list updated with patient today. Need to come for fasting lab. RTC as a scheduled If any Chest pain, ,SOB, headache, dizziness, [...] 90 days.) with the patient and/or his/her care-e learning specialist. Handwritten corrections, additions and/or deletions were made to the list, as appropriate. Corrected Outpatient Medication List was provided to the patient/caregiver. /saranya Schilling MD Staff Physician Signed: 11/26/2024 14:28 12/22/2024 ADDENDUM STATUS: COMPLETED spoke with regarding MRI of lumbar and cervical spine. Pain management consult resubmitted today again. [place] denies any other complaint today. /saranya Schilling MD Staff Physician Signed: 12/22/2024 09:02 JOSUE SCHILLING [facility]
--- OUTSIDE RECORDS SUMMARY | 2025-06-13 11:59 | XMS_ITS | Encounter Summary ---
Author Name Department of Vetera ns Affairs ([place]) Organization Department of Vetera Affairs ([place]) Address [address] [place] [address] Care Team Providers Care Ingot Supervisor Name Role Phone JOSUE NGO Primary [...] Policy Cano [facility] Jose NEGRETE ITY Nov 17, 2018 [id number] Jose TABARES PATIENT [facility] PRESCRIPT ION EAL Nov 17, 2018 [facility] [id number] Jose TABARES PATIENT [facility] Jose NEGRETE ITY Nov 17, 2018 [id number] [phone] Jose TABARES PATIENT [facility] PREFERRED PROVIDER ORGANIZAT ION (PPO) JOSE Garcia SECUR ITY Nov 17, 2018 [id number] [phone] Jose TABARES PATIENT Selected Encounter This section includes the information on record at ID for the Encounter. Date/Time Encounter Type Encounter Description Reason Provider Source Jun 13, 2025 10:44 AM PH1 ASSMT&MGMT NQHP 11-20 TELEPHONE/SURGERY ICD-10-CM G56.02 Carpal tunnel syndrome, left upper limb CLEMENTE RODRIGUEZ E Encounter Template Text not used by [place] Assessments - Encounter Diagnoses This section includes the primary and secondary diagnoses documented for the Encounter. Date/Time Primary/Secondary Diagnosis Diagnosis Name Provider Source Jun 13, 2025 10:44 AM PRIMARY Carpal tunnel syndrome, left upper limb CLEMENTE RODRIGUEZ [facility] Plan of Treatment: Future Appointments (+ 6 months) and Future Tests (+/- 45 days) The Plan of Treatment section includes future care activities for the patient from all [facility]. This section includes future appointments and future orders which are active, pending or scheduled. Future Appointments This section includes appointments that were scheduled to occur 6 months from the date of the Encounter, up to a maximum of 20 appointments. The data comes from all [facility]. Appointment Date/Time Appointment Type Appointme nt Facility Name Jun 15, 2025 10:15 AM [facility] Jun 21, 2025 02:30 PM AMBULATORY - PSYCHIATRY [facility] Aug 17, 2025 [...] of theEncounter. The data comes from all [facility]. Test Date/Time Test Type Test Details Facility Name Jun 15, 2025 12:00 AM Laboratory - Chemi stry Order RENAL PANEL GREEN LI/HEP BLD/PLAS PLASMA SP [facility] Jun 15, 2025 12:00 AM Laboratory - Chemi stry Order MAGNESIUM GREEN LI/HEP BLD/PLAS PLASMA [facility] Social History: Smoking Status [...] 05, 2024 11:55 AM VA-TOBACCO FORMER USER [facility] Tobacco Use History This section includes a history of the smoking, or tobacco-related health factors, that were collected on or before the date of the Encounter. The data comes from the [place] facility where the Encounter took place. Date/Time Smoking Status/Tobacco Use Comment F acility Aug 05, 2024 11:55 AM VA-TOBACCO QUIT 5 TO < 15 YRS [facility] May 07, 2023 06:21 AM ORYX ADMIT TOBACCO SCREEN YES [facility] May 07, 2023 06:21 AM ORYX ADMIT TOBACCO USE CIGS LS 5D [facility] May 07, 2023 06:21 AM ORYX DAILY TOBACCO VEST BASTER RECEIVED [facility] May 07, 2023 06:21 AM ORYX DAILY TOBACCO MEDS REFUSED [facility] Oct 27, 2013 02:51 PM QUIT TOBACCO >7 YEARS AGO [facility] Jan 07, 2013 10:01 AM CURRENT TOBACCO USER [facility] Jan 07, 2013 10:01 AM TOBACCO MEDS OFFER ED BUT DECLINED [facility] Sep 18, 2011 12:08 PM QUIT TOBACCO IN TH E LAST 12 MONTHS [facility] Jul 25, 2011 03:33 PM CURRENT TOBACCO USER [facility] Jul 20, 2010 10:35 AM QUIT TOBACCO IN TH E LAST 12 MONTHS [facility] Advance Directives: All historical and current Section Date Range: From patient's date of to the date document was created. This section includes ALL of a patient's completed or amended [place] Advance and Rescinded Directives. The entries below indicate that a directive exists for the patient, but an actual copy is not included with this document. The data comes from all [facility]. Date Advance Directives Provider Source May 07, 2023 ADVANCE DIRECTIVE DARLEEN ENRIQUEZ [facility] Encounter Notes: All associated encounter notes This section contains the clinical notes associated to the Encounter. Date/Time Encounter Note(s) Provider Source Jun 13, 2025 10:44 AM PLASTIC SURGERY NO TE: LOCAL TITLE: PLASTIC SURGERY NOTE STANDARD TITLE: PLASTIC SURGERY NOTE DATE OF NOTE: JUN 13, 2025@10:44 ENTRY DATE: JUN 13, 2025@10:44:18 AUTHOR: LON RODRIGUEZ EXP COSIGNER: URGENCY: STATUS: COMPLETED ESTABLISHED PATIENT PATIENT IDENTIFIERS - TWO REQUIRED FULL NAME DATE of Received message that called surgery clinic to inform that he was experiencing redness, hot to touch, and a foul odor to his surgical area. [facility] requested call from Plastic environmental field team member. This Football Scout noted that had left carpal tunnel release surgery on 05/19/25, followed up with Plastic outpatient appointment on 05/24/25, and was to follow up on 06/08/25 for suture removal appointment. [facility] did not show for the 06/08/25 appointment. This Football Scout called [facility]. confirmed the surgical area was red and warm but stated there was no foul odor. Denied fever. was encouraged to go to nearest ER for immediate evaluation. stated there was an ER a few minutes away from his home. Plastic Resident Laverne villaseñor. /loyda/ LON RODRIGUEZ lock maintenance supervisor, Plastic Surgery Signed: 06/13/2025 11:07 LON RODRIGUEZ [facility]
--- OUTSIDE RECORDS SUMMARY | 2025-06-13 11:59 | XMS_ITS ---
[place] ANESTHESIA PRE/POST-OP CONSULT [facility] Encounter Summary Created on: June 13, 2025 RAYSHAWNELEONORA LUNA SY : 1980 Sex: Male Author Name [facility] [facility] [place] Organization [facility] Address [address] [place] [address] Care Team Providers Care Circuit Court Magistrate Name Role Phone JOSUE SCHILLING Primary Care [...] Patient's Relationship to Policy [facility] Jose NEGRETE ITY Nov 17, 2018 [id number] Jose TABARES PATIENT [facility] PRESCRIPT ION UHEAL TH Nov 17, 2018 [facility] [id number] Jose TABARES PATIENT [facility] Nov 17, 2018 [id number] [phone] Jose TABARES PATIENT [facility] PREFERRED PROVIDER ORGANIZAT ION (PPO) JOSE NEGRETE ITY Nov 17, 2018 [id number] [phone] Jose TABARES PATIENT Selected Encounter This section includes the information on record at [place] for the Encounter. 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 Plan of Treatment: Future Appointments (+ 6 months) and Future Tests (+/- 45 days) The Plan of Treatment section includes future care activities for the [facility] [place] [facility] This section includes future appointments and [...] 2025 11:20 AM AMBULATORY - SURGERY [facility] May 11, 2025 01:30 PM AMBULATORY - MEDICINE [facility] May 17, 2025 02:40 PM AMBULATORY - MEDICINE [facility] May 19, 2025 11:00 AM AMBULATORY - NONE [facility] May 23, 2025 02:00 PM AMBULATORY - PSYCHIATRY [facility] May 24, 2025 10:40 AM AMBULATORY - SURGERY [facility] Jun 08, 2025 10:40 AM AMBULATORY - SURGERY [facility] Jun 15, 2025 10:15 AM AMBULATORY - MEDICINE [facility] Jun 21, 2025 02:30 PM AMBULATORY - PSYCHIATRY [facility] Aug 17, 2025 02:00 PM AMBULATORY - MEDICINE [facility] Active, Pending, and Scheduled Orders This section includes a listing of several types of active, pending, and scheduled orders, including clinic medications orders, diagnostic test orders, procedure orders and consult orders; where the start date of the order is 45 days before the date of the Encounter or 45 days after the date of theEncounter. The data comes from all [place] treatment facilities. Test Date/Time Test Type Test [...] and Hematology Lab Results on record with [place] for the patient. Radiology Reports and Pathology [...] May 09, 2025 12:21 PM Reporting Lab: [facility] [address] [facility] [id number] Performing Lab: [address] [id number] CREATININE 0.66 mg/dL L 0.7-1.3 UREA NITROGEN [...] May 09, 2025 12:21 PM Reporting Lab: [facility] [address] [facility] [id number] Performing Lab: [address] [id number] WBC 7.1 10*3/uL 3.6-11.2 RBC 3.92 10*6/uL [...] F acnita Aug 05, 2024 11:55 AM [place]-TOBACCO QUIT 5 TO < 15 YRS [facility] May 07, 2023 06:21 AM ORYX ADMIT TOBACCO SCREEN YES [facility] May 07, 2023 06:21 AM ORYX ADMIT TOBACCO USE CIGS LS 5D [facility] May 07, 2023 06:21 AM ORYX DAILY TOBACCO COMMERCIAL SALES REPRESENTATIVE RECEIVED [facility] May 07, [...] DIRECTIVE DARLEEN ENRIQUEZ [facility] Pathology Reports: +/- 30 days of the [...] the Encounter. The data comes from all [place] treatment facilities. Date/Time Pathology Report Provider Source April 08, 2025 01:42 PM LR SURGICAL PATHOL OGY REPORT: LOCAL TITLE: LR SURGICAL PATHOLOGY REPORT STANDARD TITLE: PATHOLOGY PROCEDURE NOTE DATE OF NOTE: APRIL 08, 2025@13:42:55 ENTRY DATE: APRIL 08, 2025@13:42:55 AUTHOR: SALVATORE OJEL COSIGNER: URGENCY: STATUS: COMPLETED $APHDR - - [...] Performing Laboratory: Surgical Pathology Report Performed By: [facility] [address] [facility]# [id number] [address] [place] [phone] $FTR - - - - - - - - - - - - - - - - - - - - - - - - - - - - - - - - - - - - - - - - (End of report) SALVATORE JOEL MD ph Date April 08, 2025 - - - - - - - - - - - - - - - - - - - - - - - - - - - - - - - - - - - - - - - - ELEONORA TABARES STANDARD FORM 515 ID:[id number] SEX:M :1980 AGE: 44 LOC:[id number] PCP: Josue Schilling MD /loyda/ SALVATORE JOEL MD, PhD STAFF PATHOLOGIST Signed: 04/08/2025 13:42 SALVATORE JOEL [facility] Encounter Notes: All associated encounter notes This section contains the clinical notes associated to the Encounter. Date/Time Encounter Note(s) Provider Source May 12, 2025 07:58 AM ADDENDUM: LOCAL TITLE: Addendum STANDARD TITLE: ADDENDUM DATE OF NOTE: MAY 12, 2025@07:58:55 ENTRY DATE: MAY 12, 2025@07:58:55 AUTHOR: PRIETO VASQUES EXP COSIGNER: URGENCY: STATUS: COMPLETED lab: Apr SODIUM 139 mEq/L 136 - 145 POTASSIUM 3.4 L mEq/L 3.5 - 5 CHLORIDE 104 mEq/L 98 - 107 UREA NITROGEN 4.1 L mg/dL 9.0 - 25.0 CREATININE 0.66 L mg/dL 0.7 - 1.3 CALCIUM 9.1 mg/dL 8.4 - 10.4 CARBON DIOXIDE 28 mEq/L 22 - 31 GLUCOSE 59 L mg/dL 72 - 99 EGFR (CKD-EPI 2020) 119.4 Ref: >=60 Pts potassium level has improved and may proceed as planned. /loyda/ PRIETO VASQUES PAC Physician Roofing Foreman, Anesthesiology Signed: 05/12/2025 08:00 Receipt Acknowledged By: 05/12/2025 17:52 /loyda/ LON RODRIGUEZ RN Case Manager, Plastic Surgery --- Original Document --- 05/08/25 E-CONSULT ANESTHESIA STL: The reason for consult: Right Carpal - Cubital Tunnel Release I have reviewed pertinent CPRS documentation in the electronic medical record for this patient. The recommendations/findings offered are the result of information from the requesting provider and a chart review only. 44 yo ETOH abuse - hx withdraw - daily Marijuana / hx TBI / depression / PTSD / GERD / smoker Diagnosis and/or Impression: Patient underwent EGD under MAC March 2025, aside from ETOH abuse, no significant medical issues that needed to be addressed. No further testing needed prior to procedure, risks and benefits of general anesthesia will be discussed with patient prior to procedure. 5-10 minutes or less spent reviewing patient's medical records /loyda/ HALEIGH APARICIO MD Staff Anesthesiologist Signed: 05/08/2025 07:07 05/09/2025 ADDENDUM STATUS: COMPLETED The pt will need repeat BMP to ensure K level has been corrected, was 2.9 in Mar and was prescribed potassium supplement. /loyda/ PIRETO VASQUES PAC Physician Roofing Foreman, Anesthesiology Signed: 05/09/2025 09:29 Receipt Acknowledged By: 05/10/2025 12:51 /saranya Schilling MD Staff Physician 05/09/2025 12:19 /lyoda/ LON RODRIGUEZ RN Case Manager, Plastic Surgery 05/09/2025 ADDENDUM STATUS: COMPLETED Lab orders placed. Mobile informed to have labs drawn before checking in to tomorrow's appointment. Mobile acknowledged understanding. /loyda/ LON RODRIGUEZ RN Case Manager, Plastic Surgery Signed: 05/09/2025 12:39 PRIETO VASQUES [facility] May 09, 2025 09:26 AM ADDENDUM: LOCAL TITLE: Addendum STANDARD TITLE: ADDENDUM DATE OF NOTE: MAY 09, 2025@09:26:19 ENTRY DATE: MAY 09, 2025@09:26:20 AUTHOR: PRIETO VASQUES EXP COSIGNER: URGENCY: STATUS: COMPLETED The pt will need repeat BMP to ensure K level has been corrected, was 2.9 in Mar and was prescribed potassium supplement. /loyda/ PRIETO FIGUEROA Physician Roofing Foreman, Anesthesiology Signed: 05/09/2025 09:29 Receipt Acknowledged By: 05/10/2025 12:51 /saranya Schilling MD Staff Physician 05/09/2025 12:19 /saranya RODRIGUEZ RN Case Manager, Plastic Surgery --- Original Document --- 05/08/25 E-CONSULT ANESTHESIA STL: The reason for consult: Right Carpal - Cubital Tunnel Release I have reviewed pertinent CPRS documentation in the electronic medical record for this patient. The recommendations/findings offered are the result of information from the requesting provider and a chart review only. 44 yo ETOH abuse - hx withdraw - daily Marijuana / hx TBI / depression / PTSD / GERD / smoker Diagnosis and/or Impression: Patient underwent EGD under [facility] March 2025, aside from ETOH abuse, no significant medical issues that needed to be addressed. No further testing needed prior to procedure, risks and benefits of general anesthesia will be discussed with patient prior to procedure. 5-10 minutes or less spent reviewing patient's medical records /es/ HALEIGH APARICIO MD Staff Anesthesiologist Signed: 05/08/2025 07:07 05/09/2025 ADDENDUM STATUS: COMPLETED Lab orders placed. informed to have labs drawn before checking in to tomorrow's appointment. acknowledged understanding. /es/ LON RODRIGUEZ RN Case Manager, Plastic Surgery Signed: 05/09/2025 12:39 PRIETO VASQUES [facility] May 08, 2025 06:58 AM CONSULT: LOCAL TITLE: E-CONSULT ANESTHESIA STL STANDARD TITLE: CONSULT DATE OF NOTE: MAY 08, 2025@06:58 ENTRY DATE: MAY 08, 2025@06:58:40 AUTHOR: HALEIGH APARICIO COSIGNER: URGENCY: STATUS: COMPLETED E-CONSULT ANESTHESIA STL Has ADDENDA The reason for consult: Right Carpal - Cubital Tunnel Release I have reviewed pertinent CPRS documentation in the electronic medical record for this patient. The recommendations/findings offered are the result of information from the requesting provider and a chart review only. 44 yo ETOH abuse - hx withdraw - daily Marijuana / hx TBI / depression / PTSD / GERD / smoker Diagnosis and/or Impression: Patient underwent EGD under [facility] March 2025, aside from ETOH abuse, no significant medical issues that needed to be addressed. No further testing needed prior to procedure, risks and benefits of general anesthesia will be discussed with patient prior to procedure. 5-10 minutes or less spent reviewing patient's medical records /es/ HALEIGH APARICIO MD Staff Anesthesiologist Signed: 05/08/2025 07:07 05/09/2025 ADDENDUM STATUS: COMPLETED The pt will need repeat BMP to ensure K level has been corrected, was 2.9 in Mar and was prescribed potassium supplement. /loyda/ PRIETO VASQUES PAC Physician Roofing Foreman, Anesthesiology Signed: 05/09/2025 09:29 Receipt Acknowledged By: 05/10/2025 12:51 /loyda/ Josue Schilling MD Staff Physician 05/09/2025 12:19 /loyda/ LON RODRIGUEZ RN Case Manager, Plastic Surgery 05/09/2025 ADDENDUM STATUS: COMPLETED Lab orders placed. Mobile informed to have labs drawn before checking in to tomorrow's appointment. acknowledged understanding. /loyda/ LON RODRIGUEZ RN Case Manager, Plastic Surgery Signed: 05/09/2025 12:39 05/12/2025 ADDENDUM STATUS: COMPLETED lab: [address] SODIUM 139 mEq/L 136 - 145 POTASSIUM 3.4 L mEq/L 3.5 - 5 CHLORIDE 104 mEq/L 98 - 107 UREA NITROGEN 4.1 L mg/dL 9.0 - 25.0 CREATININE 0.66 L mg/dL 0.7 - 1.3 CALCIUM 9.1 mg/dL 8.4 - 10.4 CARBON DIOXIDE 28 mEq/L 22 - 31 GLUCOSE 59 L mg/dL 72 - 99 EGFR (CKD-EPI 2020) 119.4 Ref: >=60 Pts potassium level has improved and may proceed as planned. /saranya VASQUES PAC Physician Roofing Foreman, Anesthesiology Signed: 05/12/2025 08:00 Receipt Acknowledged By: * AWAITING SIGNATURE * LON RODRIGUEZ [facility]
--- OUTSIDE RECORDS SUMMARY | 2025-06-13 11:59 | XMS_ITS | Continuity of Care Document ---
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 PLASMA Comment: No hemolysis noted. K Called to Dr Gerardo at 1312 on 01/24/2025 by JUVENTINO Critical Verbal Readback Performed Ordering Provider: AIDEN GERARDO Report Released Date/Time: Jan 24, 2025 11:14 AM Reporting Lab: [facility] [address] [facility] [address] Performing Lab: [facility] [address] [facility] [address] [facility] COMPREHE NSIVE METABOLI C PANEL GLUCOSE [MASS/VOLU ME] IN SERUM OR PLASMA 146 mg/dL 72 - 99 01/24 H Specimen Type: PLASMA Comment: No hemolysis noted. K Called to Dr Gerardo at 1312 on 01/24/2025 by JUVENTINO Critical Verbal Readback Performed Ordering Provider: AIDEN GERARDO Report Released Date/Time: Jan 24, 2025 11:14 AM Reporting Lab: [facility] [address] [facility] [address] Performing Lab: [facility] [address] [facility] [address] [facility] COMPREHE NSIVE METABOLI C PANEL SODIUM [MOLES/VOL UME] IN SERUM OR PLASMA 135 meq/L 136 - 145 01/24 L Specimen Type: PLASMA Comment: No hemolysis noted. K Called to Dr Gerardo at 1312 on 01/24/2025 by JUVENTINO Critical Verbal Readback Performed Ordering Provider: AIDEN GERARDO Report Released Date/Time: Jan 24, 2025 11:14 AM Reporting Lab: [facility] [address] [facility] [address] Performing Lab: [facility] [address] [address] [facility] COMPREHE NSIVE METABOLI C PANEL POTASSIUM [MOLES/VOL UME] IN SERUM OR PLASMA 2.9 meq/L 3.5 - 5 01/24 LL Specimen Type: PLASMA Comment: No hemolysis noted. K Called to Dr Gerardo at 1312 on 01/24/2025 by JUVENTINO Critical Verbal Readback Performed Ordering Provider: AIDEN GERARDO Report Released Date/Time: Jan 24, 2025 11:14 AM Reporting Lab: [facility] [address] [address] Performing Lab: [facility] [address] [address] [facility] COMPREHE NSIVE METABOLI C PANEL CHLORIDE [MOLES/VOL UME] IN SERUM OR PLASMA 95 meq/L 98 - 107 01/24 L Specimen Type: PLASMA Comment: No hemolysis noted. K Called to Dr Gerardo at 1312 on 01/24/2025 by JUVENTINO Critical Verbal Readback Performed Ordering Provider: AIDEN GERARDO Report Released Date/Time: Jan 24, 2025 11:14 AM Reporting Lab: [facility] [address] [facility] [address] Performing Lab: [facility] [address] [address] [facility] COMPREHE NSIVE METABOLI C PANEL CARBON DIOXIDE, TOTAL [MOLES/VOL UME] IN SERUM OR PLASMA 26 meq/L 22 - 31 01/24 Specimen Type: PLASMA Comment: No hemolysis noted. K Called to Dr Gerardo at 1312 on 01/24/2025 by JUVENTINO Critical Verbal Readback Performed Ordering Provider: AIDEN GERARDO Report Released Date/Time: Jan 24, 2025 11:14 AM Reporting Lab: [facility] [address] [facility] [address] Performing Lab: [place] [address] [facility] [address] [facility] COMPREHE NSIVE METABOLI C PANEL CALCIUM [MASS/VOLU ME] IN SERUM OR PLASMA 9.6 mg/dL 8.4 - 10.4 01/24 Specimen Type: PLASMA Comment: No hemolysis noted. K Called to Dr Gerardo at 1312 on 01/24/2025 by JUVENTINO Critical Verbal Readback Performed Ordering Provider: AIDEN GERARDO Report Released Date/Time: Jan 24, 2025 11:14 AM Reporting Lab: [facility] [address] [facility] [address] Performing Lab: [facility] [address] [address] [facility] COMPREHE NSIVE METABOLI C PANEL PROTEIN [MASS/VOLU ME] IN SERUM OR PLASMA 8.0 g/dL 6 - 8.6 01/24 Specimen Type: PLASMA Comment: No hemolysis noted. K Called to Dr Gerardo at 1312 on 01/24/2025 by JUVENTINO Critical Verbal Readback Performed Ordering Provider: AIDEN GERARDO Report Released Date/Time: Jan 24, 2025 11:14 AM Reporting Lab: [facility] [address] [address] Performing Lab: [place] [address] [place] [id number] [place] [address] COMPREHE NSIVE METABOLI C PANEL ALBUMIN [MASS/VOLU ME] IN SERUM OR PLASMA 4.7 g/dL 3.4 - 5 01/24 Specimen Type: PLASMA Comment: No hemolysis noted. K Called to Dr Gerardo at 1312 on 01/24/2025 by JUVENTINO Critical Verbal Readback Performed Ordering Provider: AIDEN GERARDO Report Released Date/Time: Jan 24, 2025 11:14 AM Reporting Lab: [place] [address] [place] [phone] Performing Lab: [place] [address] [place] [phone] COMPREHE NSIVE METABOLI C PANEL BILIRUBIN. TOTAL [MASS/VOLU ME] IN SERUM OR PLASMA 0.4 mg/dL 0.2 - 1.2 01/24 Specimen Type: PLASMA Comment: No hemolysis noted. K Called to Dr Gerardo at 1312 on 01/24/2025 by JUVENTINO Critical Verbal Readback Performed Ordering Provider: AIDEN GERARDO Report Released Date/Time: Jan 24, 2025 11:14 AM Reporting Lab: [place] [address] [place] [phone] Performing Lab: [place] [address] [address] [address] COMPREHE NSIVE METABOLI C PANEL ALKALINE PHOSPHATAS E [ENZYMATIC ACTIVITY/V OLUME] IN SERUM OR PLASMA 50 U/L 40 - 150 01/24 Specimen Type: PLASMA Comment: No hemolysis noted. K Called to Dr Gerardo at 1312 on 01/24/2025 by JUVENTINO Critical Verbal Readback Performed Ordering Provider: AIDEN GERARDO Report Released Date/Time: Jan 24, 2025 11:14 AM Reporting Lab: [place] [address] [address] [address] Performing Lab: [place] [address] [facility] [address] [facility] COMPREHE NSIVE METABOLI C PANEL ASPARTATE AMINOTRANS FERASE [ENZYMATIC ACTIVITY/V OLUME] IN SERUM OR PLASMA 70 U/L 5 - 34 01/24 H Specimen Type: PLASMA Comment: No hemolysis noted. K Called to Dr Gerardo at 1312 on 01/24/2025 by JUVENTINO Critical Verbal Readback Performed Ordering Provider: AIDEN GERARDO Report Released Date/Time: Jan 24, 2025 11:14 AM Reporting Lab: [place] [address] [facility] [address] Performing Lab: [place] [address] [facility] [address] [facility] COMPREHE NSIVE METABOLI C PANEL ALANINE AMINOTRANS FERASE [ENZYMATIC ACTIVITY/V OLUME] IN SERUM OR PLASMA 161 U/L 8 - 40 01/24 H Specimen Type: PLASMA Comment: No hemolysis noted. K Called to Dr Gerardo at 1312 on 01/24/2025 by JUVENTINO Critical Verbal Readback Performed Ordering Provider: AIDEN GERARDO Report Released Date/Time: Jan 24, 2025 11:14 AM Reporting Lab: [place] [address] [facility] [address] Performing Lab: [place] [address] [facility] [address] [facility] COMPREHE NSIVE METABOLI C PANEL GLOMERULAR FILTRATION RATE/1.73 SQ M.PREDICTE D [VOLUME RATE/AREA] IN SERUM, PLASMA OR BLOOD BY CREATININE -BASED FORMULA (CKD-EPI 2020) 114.8 60 01/24 Specimen Type: PLASMA Comment: No hemolysis noted. K Called to Dr Gerardo at 1312 on 01/24/2025 by JUVENTINO Critical Verbal Readback Performed Ordering Provider: AIDEN GERARDO Report Released Date/Time: Jan 24, 2025 11:14 AM Reporting Lab: [facility] [address] [facility] [address] Performing Lab: [facility] [address] [facility] [address] [facility] CBC LEUKOCYTES [#/VOLUME] IN BLOOD BY AUTOMATED COUNT 8.0 10*3/uL 3.6 - 11.2 01/24 Specimen Type: BLOOD No comment entered. Ordering Provider: AIDEN GERARDO Report Released Date/Time: Jan 24, 2025 11:14 AM Reporting Lab: [place] [address] [facility] [address] Performing Lab: [place] [address] [facility] [address] [facility] CBC ERYTHROCYT ES [#/VOLUME] IN BLOOD BY AUTOMATED COUNT 4.37 10*6/uL 4.10 - 5.70 01/24 Specimen Type: BLOOD No comment entered. Ordering Provider: AIDEN GERARDO Report Released Date/Time: Jan 24, 2025 11:14 AM Reporting Lab: [place] [address] [facility] [address] Performing Lab: [place] [address] [facility] [address] [facility] CBC HEMOGLOBIN [MASS/VOLU ME] IN BLOOD 13.5 g/dL 13.1 - 16.8 01/24 Specimen Type: BLOOD No comment entered. Ordering Provider: AIDEN GERARDO Report Released Date/Time: Jan 24, 2025 11:14 AM Reporting Lab: [place] [address] [facility] [address] Performing Lab: [address] [address] [facility] CBC HEMATOCRIT [VOLUME FRACTION] OF BLOOD 37.2 38.2 - 48.4 01/24 L Specimen Type: BLOOD No comment entered. Ordering Provider: AIDEN GERARDO Report Released Date/Time: Jan 24, 2025 11:14 AM Reporting Lab: [place] [address] [facility] [address] Performing Lab: [address] [address] [facility] CBC MCV [ENTITIC VOLUME] BY AUTOMATED COUNT 85.1 fL 80.0 - 100.0 01/24 Specimen Type: BLOOD No comment entered. Ordering Provider: AIDEN GERARDO Report Released Date/Time: Jan 24, 2025 11:14 AM Reporting Lab: [place] [address] [facility] [address] Performing Lab: [address] [address] [facility] CBC MCH [ENTITIC MASS] BY AUTOMATED COUNT 30.9 pg 27.0 - 34.0 01/24 Specimen Type: BLOOD No comment entered. Ordering Provider: AIDEN GERARDO Report Released Date/Time: Jan 24, 2025 11:14 AM Reporting Lab: [place] [address] [facility] [address] Performing Lab: [address] [address] [facility] CBC MCHC [MASS/VOLU ME] BY AUTOMATED COUNT 36.3 g/dL 33.0 - 36.0 01/24 H Specimen Type: BLOOD No comment entered. Ordering Provider: AIDEN GERARDO Report Released Date/Time: Jan 24, 2025 11:14 AM Reporting Lab: [place] [address] [facility] [address] Performing Lab: [address] [address] [facility] CBC PLATELETS [#/VOLUME] IN BLOOD BY AUTOMATED COUNT 276 10*3/uL 150 - 400 01/24 Specimen Type: BLOOD No comment entered. Ordering Provider: AIDEN GERARDO Report Released Date/Time: Jan 24, 2025 11:14 AM Reporting Lab: [place] [address] [address] [address] Performing Lab: [facility] [address] [facility] CBC PLATELET MEAN VOLUME [ENTITIC VOLUME] IN BLOOD BY AUTOMATED COUNT 8.8 fL 7.5 - 11.2 01/24 Specimen Type: BLOOD No comment entered. Ordering Provider: AIDEN GERARDO Report Released Date/Time: Jan 24, 2025 11:14 AM Reporting Lab: [place] [address] [facility] [address] Performing Lab: [place] [address] [facility] [address] [facility] CBC ERYTHROCYT E DISTRIBUTI ON WIDTH [RATIO] BY AUTOMATED COUNT 12.4 11.8 - 15.1 01/24 Specimen Type: BLOOD No comment entered. Ordering Provider: AIDEN GERARDO Report Released Date/Time: Jan 24, 2025 11:14 AM Reporting Lab: [place] [address] [facility] [address] Performing Lab: [place] [address] [facility] [address] [facility] CBC SEGMENTED NEUTROPHIL S/100 LEUKOCYTES IN BLOOD BY MANUAL COUNT 68.4 01/24 Specimen Type: BLOOD No comment entered. Ordering Provider: AIDEN GERARDO Report Released Date/Time: Jan 24, 2025 11:14 AM Reporting Lab: [place] [address] [address] [address] Performing Lab: [place] [address] [facility] [address] [facility] CBC MONOCYTES/ 100 LEUKOCYTES IN BLOOD BY AUTOMATED COUNT 13.2 01/24 Specimen Type: BLOOD No comment entered. Ordering Provider: AIDEN GERARDO Report Released Date/Time: Jan 24, 2025 11:14 AM Reporting Lab: [facility] [address] [facility] [address] Performing Lab: [facility] [address] [facility] [address] [facility] CBC BASOPHILS/ 100 LEUKOCYTES IN BLOOD BY MANUAL COUNT 0.9 01/24 Specimen Type: BLOOD No comment entered. Ordering Provider: AIDEN GERARDO Report Released Date/Time: Jan 24, 2025 11:14 AM Reporting Lab: [facility] [address] [address] Performing Lab: [facility] [address] [facility] [address] [facility] CBC PAPPENHEIM ER BODIES 0 01/24 Specimen Type: BLOOD No comment entered. Ordering Provider: AIDEN GERARDO Report Released Date/Time: Jan 24, 2025 11:14 AM Reporting Lab: [facility] [address] [address] Performing Lab: [facility] [address] [address] [facility] CBC LYMPHOCYTE S/100 LEUKOCYTES IN BLOOD BY MANUAL COUNT 9.6 01/24 Specimen Type: BLOOD No comment entered. Ordering Provider: AIDEN GERARDO Report Released Date/Time: Jan 24, 2025 11:14 AM Reporting Lab: [facility] [address] [facility] [address] Performing Lab: [facility] [address] [facility] [address] [facility] CBC VARIANT LYMPHOCYTE S/100 LEUKOCYTES IN BLOOD BY MANUAL COUNT 7.9 01/24 Specimen Type: BLOOD No comment entered. Ordering Provider: AIDEN GERARDO Report Released Date/Time: Jan 24, 2025 11:14 AM Reporting Lab: [facility] [address] [facility] [address] Performing Lab: [facility] [address] [facility] [address] [facility] CBC PLATELET ADEQUACY [PRESENCE] IN BLOOD BY LIGHT MICROSCOPY ADEQUATE 01/24 Specimen Type: BLOOD No comment entered. Ordering Provider: AIDEN GERARDO Report Released Date/Time: Jan 24, 2025 11:14 AM Reporting Lab: [place] [address] [facility] [address] Performing Lab: [place] [address] [facility] [address] [facility] CBC MANUAL DIFFERENTI AL COMMENT [INTERPRET ATION] IN BLOOD NARRATIVE Yes 01/24 Specimen Type: BLOOD No comment entered. Ordering Provider: AIDEN GERARDO Report Released Date/Time: Jan 24, 2025 11:14 AM Reporting Lab: [place] [address] [facility] [address] Performing Lab: [place] [address] [facility] [address] [facility] CBC BASOPHILS [#/VOLUME] IN BLOOD BY MANUAL COUNT 0.07 10*3/uL 0.01 - 0.20 01/24 Specimen Type: BLOOD No comment entered. Ordering Provider: AIDEN GERARDO Report Released Date/Time: Jan 24, 2025 11:14 AM Reporting Lab: [place] [address] [facility] [address] Performing Lab: [place] [address] [facility] [address] [facility] CBC MONOCYTES [#/VOLUME] IN BLOOD BY MANUAL COUNT 1.06 10*3/uL 0.19 - 0.80 01/24 H Specimen Type: BLOOD No comment entered. Ordering Provider: AIDEN GERARDO Report Released Date/Time: Jan 24, 2025 11:14 AM Reporting Lab: [place] [address] [facility] [address] Performing Lab: [address] [phone] [place] [address] CBC LYMPHOCYTE S [#/VOLUME] IN BLOOD BY MANUAL COUNT 1.40 10*3/uL 0.77 - 4.50 01/24 Specimen Type: BLOOD No comment entered. Ordering Provider: AIDEN GERARDO Report Released Date/Time: Jan 24, 2025 11:14 AM Reporting Lab: [place] [address] [place] [phone] Performing Lab: [place] [address] [address] [place] [phone] CBC NEUTROPHIL S [#/VOLUME] IN BLOOD BY MANUAL COUNT 5.47 10*3/uL 2.10 - 8.00 01/24 Specimen Type: BLOOD No comment entered. Ordering Provider: AIDEN GERARDO Report Released Date/Time: Jan 24, 2025 11:14 AM Reporting Lab: [place] [address] [address] [phone] Performing Lab: [place] [address] [address] [place] [phone] METHADON E PANEL (STL) ETHANOL [MASS/VOLU ME] IN URINE Negative mg/dL 0 - 20 03/30 Specimen Type: URINE Comment: The cut-off value for this test was laboratory developed and its performance characteris tics confirmed by the [facility] laboratory thru method comparison with reference laboratory and medication chart review. The laboratory is regulated under CLIA as qualified to perform high-comple xity testing. This test is used for clinical purposes in conjunction with other laboratory tests. Ordering Provider: [employer] Report Released Date/Time: March 30, 2024 11:53 AM Reporting Lab: [facility] [address] Performing Lab: [facility] [address] [facility] METHADON E PANEL (STL) AMPHETAMIN E [PRESENCE] IN URINE BY SCREEN METHOD Negative ng/mL 03/30 Specimen Type: URINE Comment: The cut-off value for this test was laboratory developed and its performance characteris tics confirmed by the [facility] laboratory thru method comparison with reference laboratory and medication chart review. The laboratory is regulated under CLIA as qualified to perform high-comple xity testing. This test is used for clinical purposes in conjunction with other laboratory tests. Ordering Provider: [employer] Report Released Date/Time: March 30, 2024 11:53 AM Reporting Lab: [facility] [place] [address] Performing Lab: [facility] [address] DIVISION METHADON E PANEL (STL) BENZOYLECG ONINE [PRESENCE] IN URINE Negative ng/mL 03/30 Specimen Type: URINE Comment: The cut-off value for this test was laboratory developed and its performance characteris tics confirmed by the [facility] laboratory thru method comparison with reference laboratory and medication chart review. The laboratory is regulated under CLIA as qualified to perform high-comple xity testing. This test is used for clinical purposes in conjunction with other laboratory tests. Ordering Provider: [employer] Report Released Date/Time: March 30, 2024 11:53 AM Reporting Lab: [facility] [place] [address] Performing Lab: [facility] [address] DIVISION METHADON E PANEL (STL) BENZODIAZE PINES [PRESENCE] IN URINE BY SCREEN METHOD Negative ng/mL 03/30 Specimen Type: URINE Comment: The cut-off value for this test was laboratory developed and its performance characteris tics confirmed by the [facility] laboratory thru method comparison with reference laboratory and medication chart review. The laboratory is regulated under CLIA as qualified to perform high-comple xity testing. This test is used for clinical purposes in conjunction with other laboratory tests. Ordering Provider: [employer] Report Released Date/Time: March 30, 2024 11:53 AM Reporting Lab: [facility] [place] [phone] Performing Lab: [facility] METHADON E PANEL (STL) CANNABINOI DS [PRESENCE] IN URINE BY SCREEN METHOD 94-POSng /mL 03/30 Specimen Type: URINE Comment: The cut-off value for this test was laboratory developed and its performance characteris tics confirmed by the [facility] laboratory thru method comparison with reference laboratory and medication chart review. The laboratory is regulated under CLIA as qualified to perform high-comple xity testing. This test is used for clinical purposes in conjunction with other laboratory tests. Ordering Provider: [employer] Report Released Date/Time: March 30, 2024 11:53 AM Reporting Lab: [facility] [place] [address] Performing Lab: [facility] METHADON E PANEL (STL) METHADONE [PRESENCE] IN URINE Negative ng/mL 03/30 Specimen Type: URINE Comment: The cut-off value for this test was laboratory developed and its performance characteris tics confirmed by the [facility] laboratory thru method comparison with reference laboratory and medication chart review. The laboratory is regulated under CLIA as qualified to perform high-comple xity testing. This test is used for clinical purposes in conjunction with other laboratory tests. Ordering Provider: [employer] Report Released Date/Time: March 30, 2024 11:53 AM Reporting Lab: [facility] [place] [address] Performing Lab: [facility] [address] METHADON E PANEL (STL) OPIATES [PRESENCE] IN URINE BY SCREEN METHOD Negative ng/mL 03/30 Specimen Type: URINE Comment: The cut-off value for this test was laboratory developed and its performance characteris tics confirmed by the [facility] laboratory thru method comparison with reference laboratory and medication chart review. The laboratory is regulated under CLIA as qualified to perform high-comple xity testing. This test is used for clinical purposes in conjunction with other laboratory tests. Ordering Provider: [employer] Report Released Date/Time: March 30, 2024 11:53 AM Reporting Lab: [facility] [place] [address] Performing Lab: [facility] [address] METHADON E PANEL (STL) CREATININE [MASS/VOLU ME] IN URINE 108.2 mg/dL 63.0 - 166.0 03/30 Specimen Type: URINE Comment: The cut-off value for this test was laboratory developed and its performance characteris tics confirmed by the [facility] laboratory thru method comparison with reference laboratory and medication chart review. The laboratory is regulated under CLIA as qualified to perform high-comple xity testing. This test is used for clinical purposes in conjunction with other laboratory tests. Ordering Provider: [employer] Report Released Date/Time: March 30, 2024 11:53 AM Reporting Lab: [facility] [place] [address] Performing Lab: [facility] DIVISION METHADON E PANEL (STL) OXYCODONE CUTOFF [MASS/VOLU ME] IN URINE FOR SCREEN METHOD Negative ng/mL 03/30 Specimen Type: URINE Comment: The cut-off value for this test was laboratory developed and its performance characteris tics confirmed by the [facility] laboratory thru method comparison with reference laboratory and medication chart review. The laboratory is regulated under CLIA as qualified to perform high-comple xity testing. This test is used for clinical purposes in conjunction with other laboratory tests. Ordering Provider: [employer] Report Released Date/Time: March 30, 2024 11:53 AM Reporting Lab: [facility] [place] [address] Performing Lab: [facility] [id number] METHADON E PANEL (STL) BUPRENORPH INE [PRESENCE] IN URINE Negative ng/mL 03/30 Specimen Type: URINE Comment: The cut-off value for this test was laboratory developed and its performance characteris tics confirmed by the [facility] laboratory thru method comparison with reference laboratory and medication chart review. The laboratory is regulated under CLIA as qualified to perform high-comple xity testing. This test is used for clinical purposes in conjunction with other laboratory tests. Ordering Provider: OSBALDO [employer] Report Released Date/Time: March 30, 2024 11:53 AM Reporting Lab: [facility] [place] [address] Performing Lab: [facility] [address] METHADON E PANEL (STL) FENTANYL [PRESENCE] IN URINE Negative ng/mL 03/30 Specimen Type: URINE Comment: The cut-off value for this test was laboratory developed and its performance characteris tics confirmed by the [facility] laboratory thru method comparison with reference laboratory and medication chart review. The laboratory is regulated under CLIA as qualified to perform high-comple xity testing. This test is used for clinical purposes in conjunction with other laboratory tests. Ordering Provider: OSBALDO [employer] Report Released Date/Time: March 30, 2024 11:53 AM Reporting Lab: [facility] [place] [address] Performing Lab: [facility] TSH (MA-PB) THYROTROPI N [UNITS/VOL UME] IN SERUM OR PLASMA 1.066 u[IU]/mL 0.470 - 5.000 03/30 Specimen Type: SERUM No comment entered. Ordering Provider: OSBALDO NGO Report Released Date/Time: March 30, 2024 11:54 AM Reporting Lab: [facility] [place] [address] Performing Lab: [facility] DIVISION HGA1C HEMOGLOBIN A1C/HEMOGL OBIN.TOTAL IN BLOOD 4.8 4.0 - 6.0 03/30 Specimen Type: BLOOD No comment entered. Ordering Provider: OSBALDO NGO Report Released Date/Time: March 30, 2024 11:54 AM Reporting Lab: [facility] [place] [address] Performing Lab: [facility] DIVISION COMPREHE NSIVE METABOLI C PANEL CREATININE [MASS/VOLU ME] IN SERUM OR PLASMA 0.78 mg/dL 0.70 - 1.30 03/30 Specimen Type: PLASMA Comment: No hemolysis noted. Ordering Provider: OSBALDO NGO Report Released Date/Time: March 30, 2024 11:54 AM Reporting Lab: [facility] [place] [address] Performing Lab: [facility] DIVISION COMPREHE NSIVE METABOLI C PANEL UREA NITROGEN [MASS/VOLU ME] IN SERUM OR PLASMA 7.5 mg/dL 9.0 - 25.0 03/30 L Specimen Type: PLASMA Comment: No hemolysis noted. Ordering Provider: OSBALDO NGO Report Released Date/Time: March 30, 2024 11:54 AM Reporting Lab: [facility] [place] [address] Performing Lab: [facility] DIVISION COMPREHE NSIVE METABOLI C PANEL GLUCOSE [MASS/VOLU ME] IN SERUM OR PLASMA 104 mg/dL 72 - 99 03/30 H Specimen Type: PLASMA Comment: No hemolysis noted. Ordering Provider: OSBALDO NGO Report Released Date/Time: March 30, 2024 11:54 AM Reporting Lab: [facility] [place] [address] Performing Lab: [facility] DIVISION COMPREHE NSIVE METABOLI C PANEL SODIUM [MOLES/VOL UME] IN SERUM OR PLASMA 139 meq/L 136 - 145 03/30 Specimen Type: PLASMA Comment: No hemolysis noted. Ordering Provider: OSBALDO NGO Report Released Date/Time: March 30, 2024 11:54 AM Reporting Lab: [facility] [place] [address] Performing Lab: [facility] DIVISION COMPREHE NSIVE METABOLI C PANEL POTASSIUM [MOLES/VOL UME] IN SERUM OR PLASMA 3.8 meq/L 3.5 - 5.0 03/30 Specimen Type: PLASMA Comment: No hemolysis noted. Ordering Provider: OSBALDO NGO Report Released Date/Time: March 30, 2024 11:54 AM Reporting Lab: [facility] [place] [address] Performing Lab: [facility] DIVISION COMPREHE NSIVE METABOLI C PANEL CHLORIDE [MOLES/VOL UME] IN SERUM OR PLASMA 103 meq/L 98 - 107 03/30 Specimen Type: PLASMA Comment: No hemolysis noted. Ordering Provider: OSBALDO NGO Report Released Date/Time: March 30, 2024 11:54 AM Reporting Lab: [facility] [place] [address] Performing Lab: [facility] DIVISION COMPREHE NSIVE METABOLI C PANEL CARBON DIOXIDE, TOTAL [MOLES/VOL UME] IN SERUM OR PLASMA 27 meq/L 22 - 31 03/30 Specimen Type: PLASMA Comment: No hemolysis noted. Ordering Provider: OSBALDO NGO Report Released Date/Time: March 30, 2024 11:54 AM Reporting Lab: [facility] [place] [address] Performing Lab: [facility] DIVISION COMPREHE NSIVE METABOLI C PANEL CALCIUM [MASS/VOLU ME] IN SERUM OR PLASMA 9.5 mg/dL 8.4 - 10.4 03/30 Specimen Type: PLASMA Comment: No hemolysis noted. Ordering Provider: OSBALDO NGO Report Released Date/Time: March 30, 2024 11:54 AM Reporting Lab: [facility] [place] [address] Performing Lab: [facility] DIVISION COMPREHE NSIVE METABOLI C PANEL PROTEIN [MASS/VOLU ME] IN SERUM OR PLASMA 6.9 g/dL 6.0 - 8.6 03/30 Specimen Type: PLASMA Comment: No hemolysis noted. Ordering Provider: OSBALDO [employer] Report Released Date/Time: March 30, 2024 11:54 AM Reporting Lab: [facility] [place] [address] Performing Lab: [facility] DIVISION COMPREHE NSIVE METABOLI C PANEL ALBUMIN [MASS/VOLU ME] IN SERUM OR PLASMA 4.3 g/dL 3.4 - 5.0 03/30 Specimen Type: PLASMA Comment: No hemolysis noted. Ordering Provider: OSBALDO NGO Report Released Date/Time: March 30, 2024 11:54 AM Reporting Lab: [facility] [place] [address] Performing Lab: [facility] DIVISION COMPREHE NSIVE METABOLI C PANEL BILIRUBIN. TOTAL [MASS/VOLU ME] IN SERUM OR PLASMA 0.6 mg/dL 0.2 - 1.2 03/30 Specimen Type: PLASMA Comment: No hemolysis noted. Ordering Provider: OSBALDO NGO Report Released Date/Time: March 30, 2024 11:54 AM Reporting Lab: [facility] [place] [address] Performing Lab: [facility] DIVISION COMPREHE NSIVE METABOLI C PANEL ALKALINE PHOSPHATAS E [ENZYMATIC ACTIVITY/V OLUME] IN SERUM OR PLASMA 57 U/L 40 - 150 03/30 Specimen Type: PLASMA Comment: No hemolysis noted. Ordering Provider: OSBALDO NGO Report Released Date/Time: March 30, 2024 11:54 AM Reporting Lab: [facility] [place] [address] Performing Lab: [facility] DIVISION COMPREHE NSIVE METABOLI C PANEL ASPARTATE AMINOTRANS FERASE [ENZYMATIC ACTIVITY/V OLUME] IN SERUM OR PLASMA 31 U/L 5 - 34 03/30 Specimen Type: PLASMA Comment: No hemolysis noted. Ordering Provider: OSBALDO NGO Report Released Date/Time: March 30, 2024 11:54 AM Reporting Lab: [facility] [place] [address] Performing Lab: [facility] DIVISION COMPREHE NSIVE METABOLI C PANEL ALANINE AMINOTRANS FERASE [ENZYMATIC ACTIVITY/V OLUME] IN SERUM OR PLASMA 24 U/L 8 - 40 03/30 Specimen Type: PLASMA Comment: No hemolysis noted. Ordering Provider: OSBALDO NGO Report Released Date/Time: March 30, 2024 11:54 AM Reporting Lab: [facility] [place] [address] Performing Lab: [facility] DIVISION COMPREHE NSIVE METABOLI C PANEL GLOMERULAR FILTRATION RATE/1.73 SQ M.PREDICTE D [VOLUME RATE/AREA] IN SERUM, PLASMA OR BLOOD BY CREATININE -BASED FORMULA (CKD-EPI 2020) 114.19 60 03/30 Specimen Type: PLASMA Comment: No hemolysis noted. Ordering Provider: OSBALDO NGO Report Released Date/Time: March 30, 2024 11:54 AM Reporting Lab: [facility] [place] [address] Performing Lab: [facility] DIVISION CBC LEUKOCYTES [#/VOLUME] IN BLOOD BY AUTOMATED COUNT 7.1 10*3/uL 3.6 - 11.2 03/30 Specimen Type: BLOOD No comment entered. Ordering Provider: OSBALDO NGO Report Released Date/Time: March 30, 2024 11:54 AM Reporting Lab: [facility] [place] [address] Performing Lab: [facility] DIVISION CBC ERYTHROCYT ES [#/VOLUME] IN BLOOD BY AUTOMATED COUNT 4.14 10*6/uL 4.10 - 5.70 03/30 Specimen Type: BLOOD No comment entered. Ordering Provider: OSBALDO [employer] Report Released Date/Time: March 30, 2024 11:54 AM Reporting Lab: [facility] [place] [address] Performing Lab: [facility] [id number] [facility] CBC HEMOGLOBIN [MASS/VOLU ME] IN BLOOD 13.6 g/dL 13.1 - 16.8 03/30 Specimen Type: BLOOD No comment entered. Ordering Provider: OSBALDO NGO Report Released Date/Time: March 30, 2024 11:54 AM Reporting Lab: [facility] [place] [address] Performing Lab: [facility] CBC HEMATOCRIT [VOLUME FRACTION] OF BLOOD 38.0 38.2 - 48.4 03/30 L Specimen Type: BLOOD No comment entered. Ordering Provider: OSBALDO NGO Report Released Date/Time: March 30, 2024 11:54 AM Reporting Lab: [facility] [place] [address] Performing Lab: [facility] DIVISION CBC MCV [ENTITIC VOLUME] BY AUTOMATED COUNT 91.8 fL 80.0 - 100.0 03/30 Specimen Type: BLOOD No comment entered. Ordering Provider: OSBALDO NGO Report Released Date/Time: March 30, 2024 11:54 AM Reporting Lab: [facility] [place] [address] Performing Lab: [facility] DIVISION CBC MCH [ENTITIC MASS] BY AUTOMATED COUNT 32.9 pg 27.0 - 34.0 03/30 Specimen Type: BLOOD No comment entered. Ordering Provider: OSBALDO NGO Report Released Date/Time: March 30, 2024 11:54 AM Reporting Lab: [facility] [place] [address] Performing Lab: [facility] [id number] CBC MCHC [MASS/VOLU ME] BY AUTOMATED COUNT 35.8 g/dL 33.0 - 36.0 03/30 Specimen Type: BLOOD No comment entered. Ordering Provider: OSBALDO NGO Report Released Date/Time: March 30, 2024 11:54 AM Reporting Lab: [facility] [place] [address] Performing Lab: [facility] CBC PLATELETS [#/VOLUME] IN BLOOD BY AUTOMATED COUNT 306 10*3/uL 150 - 400 03/30 Specimen Type: BLOOD No comment entered. Ordering Provider: OSBALDO NGO Report Released Date/Time: March 30, 2024 11:54 AM Reporting Lab: [facility] [place] [address] Performing Lab: [facility] CBC PLATELET MEAN VOLUME [ENTITIC VOLUME] IN BLOOD BY AUTOMATED COUNT 8.8 fL 7.5 - 11.2 03/30 Specimen Type: BLOOD No comment entered. Ordering Provider: OSBALDO NGO Report Released Date/Time: March 30, 2024 11:54 AM Reporting Lab: [facility] [place] [address] Performing Lab: [facility] DIVISION CBC ERYTHROCYT E DISTRIBUTI ON WIDTH [RATIO] BY AUTOMATED COUNT 11.5 11.8 - 15.1 03/30 L Specimen Type: BLOOD No comment entered. Ordering Provider: OSBALDO NGO Report Released Date/Time: March 30, 2024 11:54 AM Reporting Lab: [facility] [place] [address] Performing Lab: [facility] [id number] [place] [address] DIVISION CBC LYMPHOCYTE S/100 LEUKOCYTES IN BLOOD BY AUTOMATED COUNT 43 03/30 Specimen Type: BLOOD No comment entered. Ordering Provider: OSBALDO [employer] Report Released Date/Time: March 30, 2024 11:54 AM Reporting Lab: [facility] [place] [address] Performing Lab: [facility] DIVISION CBC MONOCYTES/ 100 LEUKOCYTES IN BLOOD BY AUTOMATED COUNT 9 03/30 Specimen Type: BLOOD No comment entered. Ordering Provider: OSBALDO NGO Report Released Date/Time: March 30, 2024 11:54 AM Reporting Lab: [facility] [place] [address] Performing Lab: [facility] DIVISION CBC NEUTROPHIL S/100 LEUKOCYTES IN BLOOD BY AUTOMATED COUNT 44 03/30 Specimen Type: BLOOD No comment entered. Ordering Provider: OSBALDO NGO Report Released Date/Time: March 30, 2024 11:54 AM Reporting Lab: [facility] [place] [address] Performing Lab: [facility] DIVISION CBC EOSINOPHIL S/100 LEUKOCYTES IN BLOOD BY AUTOMATED COUNT 4 03/30 Specimen Type: BLOOD No comment entered. Ordering Provider: OSBALDO NGO Report Released Date/Time: March 30, 2024 11:54 AM Reporting Lab: [facility] [place] [address] Performing Lab: [facility] DIVISION CBC BASOPHILS/ 100 LEUKOCYTES IN BLOOD BY AUTOMATED COUNT 1 03/30 Specimen Type: BLOOD No comment entered. Ordering Provider: OSBALDO NGO Report Released Date/Time: March 30, 2024 11:54 AM Reporting Lab: [facility] [place] [address] Performing Lab: [facility] DIVISION CBC LYMPHOCYTE S [#/VOLUME] IN BLOOD BY AUTOMATED COUNT 3.01 10*3/uL 0.77 - 4.50 03/30 Specimen Type: BLOOD No comment entered. Ordering Provider: OSBALDO NGO Report Released Date/Time: March 30, 2024 11:54 AM Reporting Lab: [facility] [place] [address] Performing Lab: [facility] DIVISION CBC MONOCYTES [#/VOLUME] IN BLOOD BY AUTOMATED COUNT 0.63 10*3/uL 0.19 - 0.80 03/30 Specimen Type: BLOOD No comment entered. Ordering Provider: OSBALDO [employer] Report Released Date/Time: March 30, 2024 11:54 AM Reporting Lab: [facility] [place] [address] Performing Lab: [facility] DIVISION CBC NEUTROPHIL S [#/VOLUME] IN BLOOD BY AUTOMATED COUNT 3.08 10*3/uL 2.10 - 8.00 03/30 Specimen Type: BLOOD No comment entered. Ordering Provider: OSBALDO [employer] Report Released Date/Time: March 30, 2024 11:54 AM Reporting Lab: [facility] [place] [address] Performing Lab: [facility] DIVISION CBC EOSINOPHIL S [#/VOLUME] IN BLOOD BY AUTOMATED COUNT 0.26 10*3/uL 0.00 - 0.60 03/30 Specimen Type: BLOOD No comment entered. Ordering Provider: OSBALDO [employer] Report Released Date/Time: March 30, 2024 11:54 AM Reporting Lab: [facility] [id number] Performing Lab: [facility] CBC BASOPHILS [#/VOLUME] IN BLOOD BY AUTOMATED COUNT 0.07 10*3/uL 0.00 - 0.20 03/30 Specimen Type: BLOOD No comment entered. Ordering Provider: OSBALDO NGO Report Released Date/Time: March 30, 2024 11:54 AM Reporting Lab: [facility] [place] [address] Performing Lab: [facility] Vital Signs Combined list of inpatient and outpatient Vital Signs from Department of Defense and Veterans Affairs, ranging from 12 months to all on record, depending upon the facility. Vital Sign Value Date Comments Source SYSTOLIC BLOOD PRESSURE 129 05/24/2025 10:47:37 [facility] DIASTOLIC BLOOD PRESSURE 88 05/24/2025 10:47:37 [facility] PULSE OXIMETRY 100 % 05/24/2025 10:47:37 [facility] WEIGHT 149.8 05/24/2025 10:47:37 [facility] BMI 21 kg/m2 05/24/2025 10:47:37 [facility] PAIN 1 05/24/2025 10:47:37 [facility] TEMPERATURE 97.6 05/24/2025 10:47:37 [facility] PULSE 107 05/24/2025 10:47:37 [facility] RESPIRATION 16 05/24/2025 10:47:37 [facility] SYSTOLIC BLOOD PRESSURE 130 05/19/2025 11:55:00 [facility] DIASTOLIC BLOOD PRESSURE 94 05/19/2025 11:55:00 [facility] PULSE OXIMETRY 100 % 05/19/2025 11:55:00 [facility] WEIGHT 143.9 05/19/2025 11:55:00 [facility] BMI 20 kg/m2 05/19/2025 11:55:00 [facility] PAIN 5 05/19/2025 11:55:00 [facility] HEIGHT 71 05/19/2025 11:55:00 [facility] TEMPERATURE 98.3 05/19/2025 11:55:00 [facility] PULSE 92 05/19/2025 11:55:00 [facility] RESPIRATION 14 05/19/2025 11:55:00 [facility] SYSTOLIC BLOOD PRESSURE 120 01/24/2025 10:41:48 [facility] DIASTOLIC BLOOD PRESSURE 82 01/24/2025 10:41:48 [facility] PULSE OXIMETRY 98 01/24/2025 10:41:48 [facility] WEIGHT 149 01/24/2025 10:41:48 [facility] BMI 21 kg/m2 01/24/2025 10:41:48 [facility] PAIN 10 01/24/2025 10:41:48 [facility] TEMPERATURE 97.7 01/24/2025 10:41:48 [facility] PULSE 97 01/24/2025 10:41:48 [facility] RESPIRATION 18 01/24/2025 10:41:48 [facility] SYSTOLIC BLOOD PRESSURE 148 01/11/2025 10:16:25 [facility] DIASTOLIC BLOOD PRESSURE 87 01/11/2025 10:16:25 [facility] PULSE OXIMETRY 100 01/11/2025 10:16:25 [facility] WEIGHT 156.4 01/11/2025 10:16:25 [facility] BMI 22 kg/m2 01/11/2025 10:16:25 [facility] PAIN 5 01/11/2025 10:16:25 [facility] HEIGHT 71 01/11/2025 10:16:25 [facility] TEMPERATURE 98.1 01/11/2025 10:16:25 [facility] PULSE 100 01/11/2025 10:16:25 [facility] RESPIRATION 24 01/11/2025 10:16:25 [facility] SYSTOLIC BLOOD PRESSURE 125 09/28/2024 11:47:45 [facility] DIASTOLIC BLOOD PRESSURE 88 09/28/2024 11:47:45 [facility] PULSE OXIMETRY 100 09/28/2024 11:47:45 [facility] WEIGHT 163 09/28/2024 11:47:45 [facility] BMI 23 kg/m2 09/28/2024 11:47:45 [facility] PAIN 6 09/28/2024 11:47:45 [facility] HEIGHT 71 09/28/2024 11:47:45 [facility] TEMPERATURE 97.9 09/28/2024 11:47:45 [facility] PULSE 122 09/28/2024 11:47:45 [facility] RESPIRATION 16 09/28/2024 11:47:45 [facility] Encounters Combined list of: 1) Encounters from Department of Veterans Affairs facilities going backup to the last 18 months, not all VA inpatient encounters are included; 2) Encounters from the Department of Defense facilities going backup to 280 months. Location Location Details Encounter Type Encounter Number Reason For Visit Attending Provider ADM Date DC Date Status Disposition Source [place]) OUTPATIENT [id number] ARCHES AND KNEE PAIN/CO LD DACIA MOYA 12/06 Released with Work/Duty Limitations [place] [place] OUTPATIENT [id number] X-RAY RESULTS DACIA MOYA 12/07 Released with Work/Duty Limitations [place] [place] OUTPATIENT [id number] back pain/bl ENRIQUE Garcia 01/17 Released with Work/Duty Limitations [place] OUTPATIENT [id number] 01/02 Released w/o Limitations [facility] OUTPATIENT [id number] 01/31 Released w/o Limitations [facility] OUTPATIENT [id number] 05/17 Released with Work/Duty Limitations [facility] OUTPATIENT [id number] 05/21 Released w/o Limitations [facility] OUTPATIENT [id number] 06/05 Released w/o Limitations [facility] OUTPATIENT [id number] 06/08 Released w/o Limitations [facility] [place] [id number] INPROCE PORTIA MENG 10/31 Released w/o Limitations [facility] [employer] [place] [place] john Examina tion) [place] [id number] W/I ROLANDA STRAUSS 11/20 Released w/o Limitations [facility] [employer] [place] [facility] ) [facility], [place] OUTPATIENT [id number] ISABEL Verde 05/07 Released w/o Limitations [facility] [employer]) [facility] [employer] [id number] knee pain CHAI HARRELL 03/14 Released w/o Limitations [facility] [employer] [facility] [employer]PAT[place] [id number] L knee pain CHAI HARRELL 03/21 Released w/o Limitations [facility] [employer]) [facility] [employer] Physical Therapy) OUTPATIENT [id number] visit for: adminis trative purpose SOFIE POSEY 04/12 Released w/o Limitations [facility] [employer] Physica l Therapy ) [facility] [employer] OUTPATIENT [id number] infecti on near groin area CHAI HARRELL 04/14 Released w/o Limitations [facility] [employer] [facility] [employer] OUTPATIENT [id number] Poss. Cyst A Co CHAI HARRELL 04/17 Released w/o Limitations [facility] [employer] [facility] [employer] TELE CONSULT [id number] MED FILL CHAI HARRELL 07/14 [facility], [employer], [place]([facility]) [facility], [employer], [place]([facility]) TELE CONSULT [phone] Needs medicat ion change SANCHO DEUTSCH 08/07 [facility], [employer], [place]([facility]) [facility] EMERGENCY DEPT VISIT LOW [facility] 87215-1.65 [id number] Diagnos is: ICD-10- CM E87.6 Hypokal emia LINO ZAMORA ERT C 03/15 [facility] Outpatient Encounter [id number] 03/15 [facility] Outpatient Encounter 54624-4.65 [id number] LINO ZAMORA ERT C 03/15 [facility] Outpatient Encounter [id number] [id number] 03/17 [facility] OFFICE O/P EST MOD 30 MIN 23000-2.65 [id number] Diagnos is: ICD-10- CM R52 Pain, 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 KODWANI, CHAVEZ 03/30 [facility] NRV CNDJ TEST 9-10 STUDIES 05509-5.65 [id number] 4 Diagnos is: ICD-10- CM G56.03 Carpal tunnel syndrom e, bilater al upper limbs MARIAMA,JULISA 04/19 [facility] Outpatient Encounter [id number] [id number] 04/19 [facility] Outpatient Encounter [id number] [id number] Bonifacio QUEZADA 04/20 [facility] PSYTX W PT 45 MINUTES 73667-0.65 [id number] Diagnos is: ICD-10- CM F43.11 Post-tr aumatic stress disorde r, acute ABICHANDAN IZACHARY 04/27 [facility] Outpatient Encounter [id number] [id number] 04/27 [facility] OFFICE O/P EST MOD 30 MIN 43361-5.65 [id number] Diagnos is: ICD-10- CM R52 Pain, 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 KODWANI, CHAVEZ 04/28 [facility] Outpatient Encounter 16619-2.65 [id number] 04/28 [facility] Outpatient Encounter 65121-4.65 [id number] 04/28 [facility] Outpatient Encounter 96655-9.65 [id number] Diagnos is: ICD-10- CM R52 Pain, 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 KODWANI, CHAVEZ 05/14 [facility] OFF/OP CNSLTJ NEW/EST LOW 30 78838-7.65 [id number] Diagnos is: ICD-10- CM G56.03 Carpal tunnel syndrom e, bilater al upper limbs ROSEELINOR Y A 05/31 [facility] OT EVAL MOD COMPLEX 45 MIN 78165-3.65 [id number] 1 Diagnos is: ICD-10- CM G56.03 Carpal tunnel syndrom e, bilater al upper limbs PATRICCristóbalTOÑO HN K 05/31 [facility] Outpatient Encounter 10922-5.65 [id number] 07/03 [facility] OFFICE O/P EST HI 40 MIN 59707-2.65 [id number] Diagnos is: ICD-10- CM Z72.0 Tobacco use MARIANO OSULLIVAN 07/05 [facility] Outpatient Encounter [id number] [id number] 07/05 [facility] HC PRO PHONE CALL 11-20 MIN 08617-0.65 [id number] Diagnos is: ICD-10- CM F10.90 Alcohol use, 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, uncompl icated SHANKAR OWEN 07/06 [facility] Outpatient Encounter [id number] [id number] SHANKAR OWEN 07/06 [facility] ALCOHOL AND/OR DRUG ASSESS [id number] [id number] Diagnos is: ICD-10- CM F10.90 Alcohol use, 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, uncompl icated DAXAANTHONY JORGE 07/13 [facility] OFF/OP EST MAY X REQ PHY/QHP 78682-6.65 [id number] Diagnos is: ICD-10- CM G56.03 Carpal tunnel syndrom e, bilater al upper limbs KWADWO ROSS 08/03 [facility] Outpatient Encounter 30603-6.65 [id number] LAURA CANDELARIA A 08/05 [facility] OFFICE O/P EST MOD 30 MIN 92907-9.65 [id number] Diagnos is: ICD-10- CM F32.89 Other specifi ed depress migdalia episode s MARIANO OSULLIVAN Ce 08/06 [facility] O/P EST MOD 30 MIN 43333-0.65 [id number] Diagnos is: ICD-10- CM R03.0 Elevate d blood-p ressure reading , w/o diagnos is of htn SHAHEEN NGO CHAVEZ 08/18 [facility] Outpatient Encounter [id number] [id number] 08/18 [facility] OFFICE O/P EST MOD 30 MIN 98460-8.65 [id number] Diagnos is: ICD-10- CM F32.89 Other specifi ed depress migdalia episode s MARIANO OSULLIVAN 09/06 [facility] OFF/OP CNSLTJ NEW/EST LOW 30 [id number] [id number] Diagnos is: ICD-10- CM G56.03 Carpal tunnel syndrom e, bilater al upper limbs VIKTORIYA BALTAZAR ESH 09/28 [facility] Outpatient Encounter 55791-3.65 [id number] 09/28 [facility] Outpatient Encounter [id number] [id number] Diagnos is: ICD-10- CM Z01.810 Encount er for preproc edural cardiov ascular examina tion ROSEHECe THER 10/03 [facility] Outpatient Encounter [id number] [id number] Diagnos is: ICD-10- CM Z04.89 Encount er for examina tion and observa tion for oth reasons Candice BRAGA 10/09 [facility] HC PRO PHONE CALL 5-10 MIN 11549-3.65 [id number] Diagnos is: ICD-10- CM G56.01 Carpal tunnel syndrom e, right upper limb RODRIGUEZ,VE MARIBEL 10/22 [facility] Outpatient Encounter [id number] [id number] 10/29 [facility] Outpatient Encounter [id number] [id number] SHAHEEN NGO CHAVEZ 11/07 [facility] OFFICE O/P EST MOD 30 MIN 56237-7.65 [id number] Diagnos is: ICD-10- CM 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, subs STEPHENITERSMARIANO LUTZ A 11/23 [facility] SYNCH AUDIO-ONLY EST SF 10 98941-2.65 [id number] Diagnos is: ICD-10- CM Z02.71 Encount er for disabil ity magii Sharron Barrett B 11/23 [facility] OFFICE O/P EST MOD 30 MIN 02354-2.65 [id number] Diagnos is: ICD-10- CM K21.9 Gastro- esophag eal reflux disease without esophag itis SHAHEEN NGO CHAVEZ 11/26 [facility] Outpatient Encounter 50515-8.65 [id number] 11/26 [facility] Outpatient Encounter 85461-9.65 [id number] 12/15 [facility] Outpatient Encounter 24760-5.65 [id number] 12/20 [facility] Outpatient Encounter [id number] [id number] 12/21 [facility] OFFICE O/P EST MOD 30 MIN 94479-7.65 [id number] Diagnos is: ICD-10- CM G56.01 Carpal tunnel syndrom e, right upper limb VIKTORIYA BALTAZAR ESH 01/11 [facility] OFF/OP CNSLTJ NEW/EST MOD 40 11828-5.65 [id number] 4 Diagnos is: ICD-10- CM R10.13 Epigast chris pain AIDEN MISTRY 01/24 [facility] Outpatient Encounter [id number] [id number] LINO ZAMORA 01/24 [facility] EMERGENCY DEPT VISIT MOD MDM 49866-3.65 [id number] 1 Diagnos is: ICD-10- CM E87.6 Hypokal emia LINO ZAMORA 01/24 [facility] Outpatient Encounter 44029-2.65 [id number] 01/24 [facility] Outpatient Encounter 10177-1.65 [id number] LINO ZAMORA 01/24 [facility] PH1 ASSMT&MGMT NQHP - 95825-8.65 [id number] 2 Diagnos is: ICD-10- CM G56.01 Carpal tunnel syndrom e, right upper limb NIKUNJ RODRIGUEZ 01/25 [facility] OFFICE O/P EST MOD 30 MIN [id number] [id number] Diagnos is: ICD-10- CM F43.10 Post-tr aumatic stress disorde r, 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 STEPHENADELFO JoseMARIANO A 02/21 [facility] Outpatient Encounter [id number] [id number] Diagnos is: ICD-10- CM F43.11 Post-tr aumatic stress disorde r, acute OSBALDO,AKILAH R 02/21 [facility] Outpatient Encounter [id number] [id number] 03/07 [facility] Outpatient Encounter [id number] [id number] GLORIA CONRAD 03/08 [facility] OFFICE O/P EST MOD 30 MIN 40327-7.65 [id number] Diagnos is: ICD-10- CM K21.9 Gastro- esophag eal reflux disease without esophag itis JENI, CHAVEZ 03/08 [facility] Outpatient Encounter 57750-0.65 [id number] 04/05 [facility] Outpatient Encounter 85804-2.65 [id number] 04/06 [facility] OFFICE O/P EST LOW 20 MIN 80194-8.65 [id number] Diagnos is: ICD-10- CM Z01.818 Encount er for other preproc edural examina tion RIMMA-CORNELIA WEINBERG 04/06 [facility] PT EDUCATION NOC INDIVID 62260-5.65 [id number] Diagnos is: ICD-10- CM R07.0 Pain in throat ELWING,NIDHI L E 04/06 [facility] Outpatient Encounter 78146-4.65 [id number] JERONIMO BENITO 04/06 [facility] Outpatient Encounter 90090-0.65 [id number] SALVATORE JOEL 04/08 [facility] PH1 ASSMT&MGMT NQHP 11-20 55349-4.65 [id number] Diagnos is: ICD-10- CM G56.01 Carpal tunnel syndrom e, right upper limb RODRIGUEZ,VE MARIBEL 04/19 [facility] Outpatient Encounter 04520-4.65 [id number] Diagnos is: ICD-10- CM 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, subs JACE APARICIO ES 05/08 [facility] OFFICE O/P EST HI 40 MIN 59433-5.65 [id number] Diagnos is: ICD-10- CM G56.02 Carpal tunnel syndrom e, left upper limb KASVIKTORIYA BROUSSARD ESH 05/10 [facility] OFFICE O/P EST MOD 30 MIN [id number] [id number] Diagnos is: ICD-10- CM K21.9 Gastro- esophag eal reflux disease without esophag itis KODWANI, CHAVEZ 05/11 [facility] PH1 ASSMT&MGMT NQHP 5-10 90478-5.65 [id number] Diagnos is: ICD-10- CM G56.02 Carpal tunnel syndrom e, left upper limb STEPHEN FAYE ELEANOR D 05/18 [facility] OFFICE O/P EST LOW 20 MIN 15465-4.65 [id number] Diagnos is: ICD-10- CM G56.02 Carpal tunnel syndrom e, left upper limb VIKTORIYA BALTAZAR [facility] 05/19 [facility] MEASURE BLOOD OXYGEN LEVEL 36669-9.65 [id number] 7 Diagnos is: ICD-10- CM G56.02 Carpal tunnel syndrom e, left upper limb SANDHYA TAVARES 05/19 [facility] OFFICE O/P EST LOW 20 MIN 49529-2.65 [id number] 4 Diagnos is: ICD-10- CM Z01.818 Encount er for other preproc edural examina JOSE R Lutz 05/19 [facility] Outpatient Encounter 96104-4.65 [id number] VIKTORIYA BALTAZAR [facility] 05/19 [facility] CARPAL TUNNEL SURGERY 71454-3.65 [id number] Ce CORDOVA 05/19 [facility] Outpatient Encounter 10855-7.65 [id number] IAIN HICKS 05/19 [facility] Outpatient Encounter 41415-4.65 [id number] Karissa RAMOS 05/19 [facility] Outpatient Encounter 64052-2.65 [id number] CINDY NORIEGA 05/19 [facility] Outpatient Encounter 07567-5.65 [id number] CHERYL MURO A 05/23 [facility] Outpatient Encounter 14044-5.65 [id number] 05/23 [facility] POSTOP FOLLOW-UP VISIT 74537-2.14 [id number] Diagnos is: ICD-10- CM G56.00 Carpal tunnel syndrom e, 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 upper limb GIOVANNYVIKTORIYA BEGUM 05/24 [facility] Outpatient Encounter [id number] [id number] Diagnos is: ICD-10- CM E87.6 Hypokal emia MENA PINA S 05/25 [facility] Outpatient Encounter 72092-2.63 [id number] 06/08 [facility] PH1 ASSMT&MGMT NQHP 11-20 42677-2.65 [id number] Diagnos is: ICD-10- CM G56.02 Carpal tunnel syndrom e, left upper limb NIKUNJ RODRIGUEZ 06/13 [facility] Procedures Combined list of: 1) Procedures from Department of Veterans Affairs facilities going back up to thelast 18 months, not all VA non-surgical procedures are included; 2) All procedures from the Department of Defense facilities. Procedure Procedure Type Code Date Perfomer Comments Sourc e SCREENING TEST OF VISUAL ACUITY, QUANTITATIVE, BILATERAL 6 DoD HEPATITIS A AND HEPATITIS B VACCINE (HEPA-HEPB), ADULT DOSAGE, FOR INTRAMUSCULAR USE 5 DoD INFLUENZA VIRUS VACCINE, TRIVALENT, LIVE (LAIV3), FOR INTRANASAL USE 4 DoD PHYS/OTH QUALIFIED HEALTH EVALUATOR TRANSFER STUDENTS QUALIFIED,EDUCATIO N,TRAIN,LICENSURE/ REGULATION (WHEN APPLICABLE) EDUC SER RENDERED TO PATS IN A GRP SETTING (EG,,OBESI TY,OR DIABETIC INSTRUCT) 4 [facility] HEPATITIS B VACCINE (HEPB), ADULT DOSAGE, 3 DOSE SCHEDULE, FOR INTRAMUSCULAR USE 5 [facility] INFLUENZA VIRUS VACCINE, TRIVALENT (IIV3), SPLIT VIRUS, 0.5 ML DOSAGE, FOR INTRAMUSCULAR USE 5 [facility] INDIVIDUAL PSYCHOTHERAPY, INSIGHT ORIENTED, BEHAVIOR MODIFYING AND/OR SUPPORTIVE, IN AN OFFICE OR OUTPATIENT FACILITY, APPROXIMATELY 20 TO 30 MINUTES [id number] WITH THE PATIENT 9 [facility] INDIVIDUAL PSYCHOTHERAPY, INSIGHT ORIENTED, BEHAVIOR MODIFYING AND/OR SUPPORTIVE, IN AN OFFICE OR OUTPATIENT FACILITY, APPROXIMATELY 45 TO 50 MINUTES [id number] WITH THE PATIENT 9 [facility] INFLUENZA VIRUS VACCINE, TRIVALENT, LIVE (LAIV3), FOR INTRANASAL USE 9 [facility] INDIVIDUAL PSYCHOTHERAPY, INSIGHT ORIENTED, BEHAVIOR MODIFYING AND/OR SUPPORTIVE, IN AN OFFICE OR OUTPATIENT FACILITY, APPROXIMATELY 45 TO 50 MINUTES [id number]-[id number] WITH THE PATIENT 9 [facility] INDIVIDUAL PSYCHOTHERAPY, INSIGHT ORIENTED, BEHAVIOR MODIFYING AND/OR SUPPORTIVE, IN AN OFFICE OR OUTPATIENT FACILITY, APPROXIMATELY 20 TO 30 MINUTES [id number] WITH THE PATIENT 9 [facility] THERAPEUTIC, PROPHYLACTIC, OR DIAGNOSTIC INJECTION (SPECIFY SUBSTANCE OR DRUG); SUBCUTANEOUS OR INTRAMUSCULAR 9 [facility] SELF-CARE/HOME MANAGMENT TRAIN (EG,ACT OF DAILY LIVING (ADL) &COMPENSAT TRAIN,MEAL PREPARATION,SAFETY PROCS,AND INSTRUCT IN USE OF ASST TECHNOLOGY DEV/ADPT EQUIP) DIR ONE-ON-ONE CONT,EA 15 MINUTES 9 [facility] INFLUENZA VIRUS VACCINE, TRIVALENT, LIVE (LAIV3), FOR INTRANASAL USE 7 [facility] TYPHOID VACCINE, ACETONE-KILLED, DRIED (AKD), FOR SUBCUTANEOUS USE (U.S. ) 7 [facility] ANALYSIS OF CLINICAL DATA STORED IN COMPUTERS (EG, ECGS, BLOOD PRESSURES, HEMATOLOGIC DATA) 7 [facility] SCREENING TEST OF VISUAL ACUITY, QUANTITATIVE, BILATERAL 7 DoD PREPARATION OF REPORT OF PATIENT'S PSYCHIATRIC STATUS, HISTORY, TREATMENT, OR PROGRESS (OTHER THAN FOR LEGAL OR CONSULTATIVE PURPOSES) FOR OTHER INDIVIDUALS, AGENCIES, OR INSURANCE CARRIERS 7 [facility] PSYCHOLOG TESTING (ASSESS EMOTION,INTELLECT ABILITIES,PERSONAL ITY & PSYCHOPATH,EG,MMPI ,[place])/H R PSYCHOLOGIST/PHYS TIME,BOTH ETHD-NF-ACGP ADMIN TEST TO PAT & INTERP TEST RESULT & PREP RPT 7 [facility] HEPATITIS A AND HEPATITIS B VACCINE (HEPA-HEPB), ADULT DOSAGE, FOR INTRAMUSCULAR USE 7 [facility] ANALYSIS OF CLINICAL DATA STORED IN COMPUTERS (EG, ECGS, BLOOD PRESSURES, HEMATOLOGIC DATA) 7 [facility] Psychiatric Therapy Individual Approximately 20-30 Minutes Psychiatric Therapy Individual Approximately 20-30 Minutes [id number] CHAPIS RODRIGUEZ [facility] Social Work Individual Outpatient Counseling 45-50 Minutes Social Work Individual Outpatient Counseling 45-50 Minutes 47940 9 SIOMAAR CASTRO [facility] Social Work Individual Outpatient Counseling 45-50 Minutes Social Work Individual Outpatient Counseling 45-50 Minutes [id number] 9 SIOMARA CASTRO [facility] Social Work Individual Outpatient Counseling 20-30 Minutes Social Work Individual Outpatient Counseling 20-30 Minutes 58686 9 ANDREW MORALES [facility] Supervised Injection Intramuscular Antibiotic Supervised Injection Intramuscular Antibiotic 61970 9 MOO BAILON [facility] Phys Therapy Education Self Care Training - Per 15 Minutes Phys Therapy Education Self Care Training - Per 15 Minutes 98424 9 SOFIE POSEY [facility] Physical Medicine Physical Therapy Evaluation Physical Medicine Physical Therapy Evaluation 80233 9 SOFIE POSEY [facility] Screening Test Of Visual Acuity, Quantitative, Bilateral Screening Test Of Visual Acuity, Quantitative, Bilateral 23043 7 ISABEL RUBALCAVA [facility] Psychiatric Therapy Preparation of Psychiatric Status Report Psychiatric Therapy Preparation of Psychiatric Status Report 95792 7 RAQUEL GANNON [facility] Psychiatric Evaluation Comprehensive Examination Psychiatric Evaluation Comprehensive Examination 61356 7 RAQUEL GANNON [facility] Psychologic Testing And Report Administered By Physician Psychologic Testing And Report Administered By Physician 66832 7 RAQUEL GANNON [facility] Audiometry Group Testing Audiometry Group Testing 14131 7 ROLANDA STRAUSS Threshold Audiogram (Pure Tone) Threshold Audiogram (Pure Tone) [address]Supervised Group Educational Services [address] Services Analysis Of Computerized Data Special Dr. 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 Social History Type Response Date Comment [facility] e Tobacco smoking status NHIS VA-TOBACCO FORMER USER 08/05/2024 [facility] History of tobacco use NV-TOBACCO QUIT 5 TO < 15 YRS 08/05/2024 [facility] History of tobacco use VA-TOBACCO USER SOME DAYS 06/05/2023 [facility] History of tobacco use ORYX ADMIT TOBACCO SCREEN YES 05/07/2023 [facility] History of tobacco use VA-TOBACCO FORMER USER 04/16/2022 [facility] History of tobacco use VA-TOBACCO USER EVERY DAY 11/14/2020 [facility] History of tobacco use VA-TOBACCO FORMER USER 02/08/2019 [facility] History of tobacco use TOBACCO USER OFFERED MEDS 10/17/2017 [facility] History of tobacco use CURRENT TOBACCO USER 07/02/2017 [facility] Sharron [facility] History of tobacco use QUIT TOBACCO >12 MO and <7 YRS AGO 02/19/2016 [facility] History of tobacco use CURRENT TOBACCO USER 04/14/2015 [facility] History of tobacco use CURRENT TOBACCO USER 08/25/2014 [facility] History of tobacco use QUIT TOBACCO >7 YEARS AGO 10/27/2013 [facility] History of tobacco use CURRENT TOBACCO USER 01/07/2013 Joe [facility] Sharron [facility] History of tobacco use QUIT TOBACCO IN THE LAST 12 MONTHS 09/18/2011 [facility] History of tobacco use CURRENT TOBACCO USER 07/25/2011 [facility] Sharron O [facility] History of tobacco use QUIT TOBACCO IN THE LAST 12 MONTHS 07/20/2010 [facility] This section is an empty social history section. [facility] Plan of Care List of future care activities from [facility] facilities. Additional future care activities may be listed in the Assessment and Plan section. Date/Time Care Activity Care Activity Detail Facili ty 06/15/2025 AMBULATORY - MEDICINE AMBULATORY - MEDICI NE [facility] Advance Directives List of completed, amended, or rescinded Advance Directives on record at [facility] facilities. An actual copy of the Directive is not included. Date Advance Directive Provider Source 05/07/2023 ADVANCE DIRECTIVE DARLEEN ENRIQUEZ [facility]
--- OUTSIDE RECORDS SUMMARY | 2025-06-13 11:59 | XMS_ITS | Encounter Summary ---
Author Name Department [place] Organization [facility] Address [address] [place] [address] Care Team Providers Care Sole Stainer Name Role Phone JOSUE SCHILLING Primary Care [...] Policy Cano [facility] Jose NEGRETE ITY Nov 17, 2018 [id number] Jose TABARES PATIENT [facility] PRESCRIPT ION UHEAL TH Nov 17, 2018 [facility] [id number] Jose TABARES PATIENT [facility] Jose NEGRETE ITY Nov 17, 2018 [id number] [phone] Jose TABARES PATIENT [facility] PREFERRED PROVIDER ORGANIZAT ION (PPO) JOSE MONDRAGONUR ITY Nov 17, 2018 [id number] [phone] Jose TABARES PATIENT Selected Encounter This section includes the information on record at [place] for the Encounter. Date/Time Encounter Type Encounter Description Reason Provider Source April 06, 2025 12:41 PM OFFICE O/P EST LOW 20 MIN NON-OR ANESTHESIA PROCEDURES ICD-10-CM Z01.818 Encounter for other preprocedural examination NURYS FUNEZ IHE Encounter Template Text not used by [place] Assessments - Encounter Diagnoses This section includes the primary and secondary diagnoses documented for the Encounter. Date/Time Primary/Secondary Diagnosis Diagnosis Name Provider Source April 06, 2025 01:50 PM PRIMARY Encounter for other preprocedural examination JERONIMO BENITO [facility] Plan of Treatment: Future Appointments (+ 6 months) and Future Tests (+/- 45 days) The Plan of Treatment section includes future care activities for the patient from all [place] [facility] This section includes future appointments and [...] 10, 2025 11:20 AM AMBULATORY - SURGERY [facility] May 11, 2025 01:30 PM AMBULATORY - MEDICINE [facility] May 17, 2025 02:40 PM AMBULATORY - MEDICINE [facility] May 19, 2025 11:00 AM AMBULATORY - NONE [facility] May 23, 2025 02:00 PM AMBULATORY - PSYCHIATRY [facility] May 24, 2025 10:40 AM AMBULATORY - SURGERY [facility] Jun 08, 2025 10:40 AM AMBULATORY - SURGERY [facility] Jun 15, 2025 10:15 AM AMBULATORY - MEDICINE [facility] Jun 21, 2025 02:30 PM AMBULATORY - PSYCHIATRY [facility] Aug 17, 2025 02:00 PM AMBULATORY - MEDICINE [facility] Active, Pending, and Scheduled Orders This section includes a listing of several types of active, pending, and scheduled orders, including clinic medications orders, diagnostic test orders, procedure orders and consult orders; where the start date of the order is 45 days before the date of the Encounter or 45 days after the date of theEncounter. The data comes from all [place] treatment facilities. Test Date/Time Test Type Test Details Facility Name Mar 11, 2025 12:00 AM Laboratory - Chemistry Order CBC BLOOD SP [facility] Mar 11, 2025 12:00 AM Laboratory - Chemistry Order COMPREHENSIVE METABOLIC PANEL GREEN LI/HEP BLD/PLAS PLASMA SP [facility] Mar 11, 2025 12:00 AM Laboratory - Chemistry Order HGA1C BLOOD SP [facility] Mar 11, 2025 12:00 AM Laboratory - Chemistry Order TSH (MA-PB) GOLD/RED SST SERUM SP [facility] Mar 11, 2025 12:00 AM Laboratory - Chemistry Order LIPID PANEL (STL) GREEN LI/HEP BLD/PLAS PLASMA [facility] Social History: Smoking Status (Most current) [...] Devorah ity Aug 05, 2024 11:55 AM [place]-TOBACCO QUIT 5 TO < 15 YRS [facility] Tobacco Use History This section includes a history of the smoking, or tobacco-related health factors, that were collected on or before the date of the Encounter. The data comes from the [place] facility where the Encounter took place. Date/Time Smoking Status/Tobacco Use Comment F acnita Aug 05, 2024 11:55 AM [place]-TOBACCO QUIT 5 TO < 15 YRS [facility] May 07, 2023 06:21 AM ORYX ADMIT TOBACCO SCREEN YES [facility] May 07, 2023 06:21 AM ORYX ADMIT TOBACCO USE CIGS LS 5D [facility] May 07, 2023 06:21 AM ORYX DAILY TOBACCO HAND MODEL RECEIVED [facility] May 07, 2023 06:21 AM ORYX DAILY TOBACCO MEDS REFUSED [facility] Oct 27, 2013 02:51 PM QUIT TOBACCO >7 YEARS AGO [facility] Jan 07, 2013 10:01 AM CURRENT TOBACCO USER [facility] Jan 07, 2013 10:01 AM TOBACCO MEDS OFFER ED BUT DECLINED [facility] Sep 18, 2011 12:08 PM QUIT TOBACCO IN TH E LAST 12 MONTHS [facility] Jul 25, 2011 03:33 PM CURRENT TOBACCO USER [facility] Jul 20, 2010 10:35 AM QUIT TOBACCO IN TH E LAST 12 MONTHS [facility] Advance Directives: All [...] May 07, 2023 ADVANCE DIRECTIVE DARLEEN ENRIQUEZ [facility] Pathology Reports: +/- 30 days of [...] the Encounter. The data comes from all [place] treatment facilities. Date/Time Pathology Report Provider Source [...] OR DYSPLASIA -- NO H. PYLORI IDENTIFIED /saranya JOEL MD, PhD STAFF PATHOLOGIST Signed April 08, 2025@13:42 Performing Laboratory: Surgical Pathology Report Per[facility] By: [facility] [address] [place] [address]# [id number] [address] [place] [phone] $FTR - - - - - - [...] - - ELEONORA TABARES STANDARD FORM 515 ID:[id number] SEX:M :1980 AGE: 44 LOC:[id number] PCP: Josue Schilling MD /loyda/ SALVATORE JOEL MD, PhD STAFF PATHOLOGIST Signed: 04/08/2025 13:42 SALVATORE JOEL [facility] Encounter Notes: All associated encounter notes This section contains the clinical notes associated to the Encounter. Date/Time Encounter Note(s) Provider Source April 06, 2025 01:50 PM ANESTHESIOLOGY POST OPERATIVE E & M NOTE: LOCAL TITLE: ANESTHESIA POST-OP STL STANDARD TITLE: ANESTHESIOLOGY POST OPERATIVE E & M NOTE DATE OF NOTE: APRIL 06, 2025@13:50 ENTRY DATE: APRIL 06, 2025@13:50:16 AUTHOR: FUAD MITCHELL EXP COSIGNER: URGENCY: STATUS: COMPLETED Post-Anesthetic Note No complications noted from anesthetic at the time of this note. Please look at intra-op flowsheet for details on anesthetic. Anesthesia intra-op flowsheet uploaded to [facility]. /es/ LISA MITCHELL MD ANESTHESIOLOGY/CRITICAL CARE MEDICINE Signed: 04/06/2025 13:50 FUAD MITCHELL [facility] April 06, 2025 12:41 PM ANESTHESIOLOGY PRE OPERATIVE E & M NOTE: LOCAL TITLE: ANESTHESIA PRE-OP STL STANDARD TITLE: ANESTHESIOLOGY PRE OPERATIVE E & M NOTE DATE OF NOTE: APRIL 06, 2025@12:41 ENTRY DATE: APRIL 06, 2025@12:41:25 AUTHOR: FUAD MITCHELL EXP COSIGNER: URGENCY: STATUS: COMPLETED ELEONORA TABARES is a 44 year old MALE who is to undergo the proposed procedure below Pre-operative diagnosis: Abdominal pain Operation proposed: EGD VITALS Age: 44 Weight: 149 lb [67.59 kg] (01/24/2025 10:41) Height: 71 in [180.3 cm] (01/11/2025 10:16) BMI: 20.8 Blood pressure: 133/78 (01/24/2025 16:51) Pulse: 90 (01/24/2025 16:51) Temperature: 98.1 F [36.7 C] (01/24/2025 12:43) Respiration: 18 (01/24/2025 16:51) SpO2: 98% (01/24/2025 16:51) Pain: 0 (01/24/2025 16:51) ALLERGIES Patient has answered NKA MEDICATIONS Inpatient: No medications found. Active Outpatient Medications (including Supplies): Active Outpatient Medications Status = 1) ACETAMINOPHEN 325MG TAB TAKE TWO TABLETS [...] TO FOOD. Indication: FOR GASTROESOPHAGEAL REFLUX DISEASE LABS SODIUM 135 L mEq/L 01/24/2025 12:04 POTASSIUM 2.9 L* mEq/L 01/24/2025 12:04 CHLORIDE 95 L mEq/L 01/24/2025 12:04 UREA NITROGEN 5.9 L mg/dL 01/24/2025 12:04 CREATININE 0.75 mg/dL 01/24/2025 12:04 CALCIUM 9.6 mg/dL 01/24/2025 12:04 PROTEIN 8.0 g/dL 01/24/2025 12:04 ALBUMIN 4.7 g/dL 01/24/2025 12:04 ALKALINE PHOSPHATASE 50 U/L 01/24/2025 12:04 ALT/SGPT 161 H U/L 01/24/2025 12:04 AST/SGOT 70 H U/L 01/24/2025 12:04 TOTAL BILIRUBIN 0.4 mg/dL 01/24/2025 12:04 CARBON DIOXIDE 26 mEq/L 01/24/2025 12:04 GLUCOSE 146 H mg/dL 01/24/2025 12:04 EGFR (CKD-EPI 2020) 114.8 01/24/2025 12:04 WBC 8.0 10*3/uL 01/24/2025 12:04 RBC 4.37 10*6/uL 01/24/2025 12:04 HGB 13.5 g/dL 01/24/2025 12:04 HCT 37.2 L % 01/24/2025 12:04 MCV 85.1 fL 01/24/2025 12:04 MCH 30.9 pg 01/24/2025 12:04 MCHC 36.3 H g/dL 01/24/2025 12:04 RDW 12.4 % 01/24/2025 12:04 PLT 276 10*3/uL 01/24/2025 12:04 MPV 8.8 fL 01/24/2025 12:04 NEUTROPHILS, AUTO % 44 % 03/30/2024 12:02 [...] BASOPHILS, ABSOLUTE 0.07 10*3/uL 03/30/2024 12:02 NEUTROPHILS 68.4 % 01/24/2025 12:04 LYMPHOCYTES 9.6 % 01/24/2025 12:04 MONOCYTES 13.2 % 01/24/2025 12:04 EOSINOPHILS 5 % 05/06/2023 20:27 BASOPHILS 0.9 % 01/24/2025 12:04 ATYPICAL LYMPHOCYTES 7.9 % 01/24/2025 12:04 ANISOCYTOSIS 1+ 05/06/2023 20:27 POIKILOCYTOSIS 2+ 05/06/2023 20:27 MACROCYTOSIS 1+ 05/06/2023 20:27 TARGET CELLS 2+ 05/06/2023 20:27 INR VALUE 1.1 INR 05/06/2023 21:30 PROTIME 11.9 sec 05/06/2023 21:30 No PTT EO data found HGA1C 4.8 % 03/30/2024 12:02 URINE COLOR [...] size is normal. Mediastinal contours are normal. PFT: No Pulmonary Function Test for this patient. EK09/29/2024 19:14 Local Title: EKG CONSULT ST Standard Title: CARDIOLOGY DIAGNOSTIC STUDY CONSULT AUTHOR: CLINICAL,DEVICE PROXY SERVICE DOCUMENT IN [facility] SEE FULL REPORT IN [facility] SIGNATURE NOT REQUIRED SEE SIGNATURE IN [facility]IST[facility]AG[facility] ([place] EKG) AUTO-INSTRUMENT DIAGNOSIS Procedure: 75081 12 Lead ECG Release Status: Released Off-Line Verified Date Verified: Sep 29, 2024@19:14:31 78463.2 Ventricular Rate: 111 BPM 68841.3 Atrial Rate: 111 BPM 53900.4 P-R Interval: 134 ms 00673.5 QRS Duration: 92 ms 35824.6 Q-T Interval: 344 ms 67655 QTC Calculation(Bazett)467 ms 85739.12 Calculated P [place]: 69 degrees 74986.13 Calculated R [place]: 59 degrees 16531.14 Calculated T [place]: 38 degrees Sinus tachycardia Otherwise normal ECG When compared with ECG of 15-MAR-2024 12:35, Nonspecific T wave abnormality no longer evident in Anterior leads Administrative Closure: 09/29/2024 by: CLINICAL,DEVICE PROXY SERVICE < THE ABOVE NOTE IS UNSIGNED > - DRAFT COPY * DRAFT COPY * DRAFT COPY * DRAFT COPY * DRAFT COPY * DRAFT COPY - Echocardiogram: PROGRESS NOTES SELECTED No data available for: ECHOCARDIOGRAPHIC RESULTS MA ECHOCARDIOGRAPHY CONSULT STL ECHO COMPLETED CONSULT STL TRANSESOPHAGEAL ECHOCARDIOGRAM CONSULT RESULTS (MARY) MA TRANSESOPHAGEAL ECHOCARDIOGRAM (MARY) CONSULT REPORT IMAGING IMPRESSION SELECTED No data available for: US ECHOCARDIOGRAPHY, TRANSTHORACIC US DOPPLER ECHOCARDIOGARPHY COLOR FLOW MAPPING -PB ONLY US DOPPLER ECHOCARDIOGRAPHY-PB ONLY US ECHOCARDIOGRAPHY, TRANSTHORACIC-PB ONLY CARDIOLOGY ECHOCARDIOGRAM No Data Available Stress test: No Stress Test Data available PROBLEM LIST 1) Low back pain (SNOMED CT 649084665) 2) Traumatic brain injury with no loss of consciousness (SNOMED CT 689755727) 3) Acute posttraumatic stress disorder following combat (SNOMED CT 996681438) 4) Concussion (ICD-9-CM 850.9) 5) Anxiety * (ICD-9-CM 300.00/300.09) 6) Depression * (ICD-9-CM 311./300.4) 7) Attention-deficit hyperactivity disorder * 8) Unemployment 9) Palpitations (ICD-9-CM 785.1) 10) Routine General Medical Examination at a Health Care Facility * (ICD-9-CM V70.0) 11) Lumbosacral radiculopathy (SNOMED CT 5641285) 12) Tobacco use 13) Pain 14) Abnormal blood pressure 15) Chronic depression 16) Admits alcohol use 17) Insomnia 18) Alcohol abuse 19) Hypokalemia 20) Posttraumatic stress disorder 21) Bilateral carpal tunnel syndrome 22) Gastroesophageal reflux disease REVIEW OF SYSTEMS/METS/PAST MEDICAL HISTORY/PHYSICAL EXAM RESPIRATORY ? for: - Sleep apnea - Asthma - COPD + Tob use CARDIAC ? for: - Hypertension,, ELEVATED BP W/O DIAGNOSIS OF HTN - Hyperlipidemia - Myocardial infarction - Coronary artery disease - Heart failure - Valvular disease - Atrial fibrillation/flutter + Palpitations PSYCH/CENTRAL NERVOUS ? for: + Depression + Anxiety + Post-traumatic stress disorder - Cerebral vascular accident - Seizures + TBI + ADHD ENDOCRINE ? for: - Diabetes - Hypothyroid + HYPOKALEMIA, H/O RENAL ? for: - Chronic kidney disease - Nephrolithiasis GI ? for: - GERD - Liver disease - GI bleed VASCULAR/HEMATOLOGY/ONCOLOGY ? for: - Anemia - Thrombocytopenia - Bleeding disorders MUSCULOSKELETAL/SKIN/PERIPHE RAL NERVOUS ? for: - Obesity - Arthritis/Degenerative joint disease - Rheumatoid arthritis - Neuropathy /REPRODUCTIVE ? for: - Prostate hypertrophy HABITS Tobacco : Denies current tobacco use ETOH: 2-3 times per week, few drink each time, anxiety-related OTHER: marijuina daily Functional capacity: >4 METS SURGICAL HISTORY Reviewed Previous anesthesia complications: None Family history of anesthesia complications: None PHYSICAL EXAM Neuro: Alert & oriented Heart: Regular rate, regular rhythm Lungs: Bilateral chest rise AIRWAY Mallampati class: 2 Neck: Normal thyromental distance, full neck range of motion Teeth: Intact ASA CLASS 2. A patient with mild systemic disease ANESTHETIC PLAN Sedation/Monitored anesthesia care (MAC) Planned anesthetic technique and options were discussed with the patient or guardian including risks, benefits, and potential complications. All questions answered. PRE-INDUCTION REASSESSMENT NPO status: Appropriate /loyda/ LISA MITCHELL MD ANESTHESIOLOGY/CRITICAL CARE MEDICINE Signed: 04/06/2025 12:57 Receipt Acknowledged By: 04/06/2025 13:00 /loyda/ JERONIMO BENITO CERTIFIED REGISTERED NURSE QUARRY PLUG AND FEATHER DRILLER FUAD MITCHELL [facility]
--- OUTSIDE RECORDS SUMMARY | 2025-06-13 11:59 | XMS_ITS ---
Author Name Department [place] Organization Department of [facility] Affairs ([place]) Address [address] [place] [address] Care Team Providers Care Rent And Miscellaneous Remittance Clerk Name Role Phone JOSUE NGO Primary [...] Patient's Relationship to Policy Cano [facility] JOSE Jose MONDRAGONJOSE MANUEL ITY Nov 17, 2018 [id number] [phone] Jose TABARES PATIENT [facility] PRESCRIPT ION EAL TH Nov 17, 2018 [facility] [id number] [phone] Jose TABARES PATIENT [facility] Nov 17, 2018 [id number] [phone] Jose TABARES PATIENT [facility] PREFERRED PROVIDER ORGANIZAT ION (PPO) JOSE NEGRETE ITY Nov 17, 2018 [id number] [phone] Jose TABARES PATIENT Selected Encounter This section includes the information on record at [place] for the Encounter. Date/Time Encounter Type Encounter Description Reason Provider Source May 19, 2025 12:45 PM Outpatient Encounter GENERAL SURGERY JAIRO HICKS Encounter Template Text not used by [place] Plan of Treatment: Future Appointments (+ 6 months) and Future Tests (+/- 45 days) The Plan of Treatment section includes future care activities for the patient from all [place] [facility]. This section includes future appointments and future orders which are active, pending or scheduled. Future Appointments This section includes appointments that were scheduled to occur 6 months from the date of the Encounter, up to a maximum of 20 appointments. The data comes from all [facility]. Appointment Date/Time Appointment Type Appointme nt Facility Name May 23, 2025 02:00 PM AMBULATORY - PSYCHIATRY [facility] May 24, 2025 10:40 AM AMBULATORY - SURGERY [facility] Jun 08, 2025 10:40 AM AMBULATORY - SUR[facility]ERY [facility] Jun 15, 2025 10:15 AM AMBULATORY - MEDICINE [facility] Jun 21, 2025 02:30 PM AMBULATORY - PSYCHIATRY [facility] Aug 17, 2025 02:00 PM AMBULATORY - MEDICINE [facility] Active, Pending, and Scheduled Orders This section includes a listing of several types of active, pending, and scheduled orders, including clinic medications orders, diagnostic test orders, procedure orders and consult orders; where the start date of the order is 45 days before the date of the Encounter or 45 days after the date of theEncounter. The data comes from all [facility]. Test Date/Time Test Type Test Details Facility Name Jun 15, 2025 12:00 AM Laboratory - Chemi stry Order RENAL PANEL GREEN LI/HEP BLD/PLAS PLASMA SP [facility] Jun 15, 2025 12:00 AM Laboratory - Chemi stry Order MAGNESIUM GREEN LI/HEP BLD/PLAS PLASMA [facility] Lab Results: +/- 30 [...] Comment May 10, 2025 11:02 AM [facility] BASIC METABOLIC PANEL PLASMA Specimen Type: PLASMA Comment: No hemolysis noted. Ordering Provider: ALE BALTAZAR Report Released Date/Time: May 09, 2025 12:21 PM Reporting Lab: [address] [address] Performing Lab: [address] [address] CREATININE 0.66 mg/dL L 0.7-1.3 UREA NITROGEN 4.1 mg/dL L 9.0-25.0 GLUCOSE 59 mg/dL L 72-99 SODIUM 139 meq/L 136-145 POTASSIUM 3.4 meq/L L 3.5-5 CHLORIDE 104 meq/L 98-107 CARBON DIOXIDE 28 meq/L 22-31 CALCIUM 9.1 mg/dL 8.4-10.4 EGFR (CKD-EPI 2020) 119.4 >60 May 10, 2025 11:02 AM [facility] CBC BLOOD Specimen Type: BLOOD No comment entered. Ordering Provider: ALE BALTAZAR Report Released Date/Time: May 09, 2025 12:21 PM Reporting Lab: [address] [address] Performing Lab: [address] [address] WBC 7.1 10*3/uL 3.6-11.2 RBC 3.92 10*6/uL [...] 130/97 mm[Hg] 16 /min 100 % 0 [facility] N May 19, 2025 11:55 AM 98.3 F 92 /min 130/94 mm[Hg] 14 /min 100 % 5 71 in 143.9 lb 20 [facility] N Social History: Smoking Status (Most [...] 2024 11:55 AM [place]-TOBACCO FORMER USER [facility] Tobacco Use History This section includes a history of the smoking, or tobacco-related health factors, that were collected on or before the date of the Encounter. The data comes from the [place] facility where the Encounter took place. Date/Time Smoking Status/Tobacco Use Comment F acnita Aug 05, 2024 11:55 AM VA-TOBACCO QUIT 5 TO < 15 YRS [facility] May 07, 2023 06:21 AM ORYX ADMIT TOBACCO SCREEN YES [facility] May 07, 2023 06:21 AM ORYX ADMIT TOBACCO USE CIGS LS 5D [facility] May 07, 2023 06:21 AM ORYX DAILY TOBACCO RN TRANSPLANT RECEIVED [facility] May 07, 2023 06:21 AM ORYX DAILY TOBACCO MEDS REFUSED [facility] Oct 27, 2013 02:51 PM QUIT TOBACCO >7 YEARS AGO [facility] Jan 07, 2013 10:01 AM CURRENT TOBACCO USER [facility] Jan 07, 2013 10:01 AM TOBACCO MEDS OFFER ED BUT DECLINED [facility] Sep 18, 2011 12:08 PM QUIT TOBACCO IN TH E LAST 12 MONTHS [facility] Jul 25, 2011 03:33 PM CURRENT TOBACCO USER [facility] Jul 20, 2010 10:35 AM QUIT TOBACCO IN TH E LAST 12 MONTHS [facility] Advance Directives: All [...] 2023 ADVANCE DIRECTIVE DARLEEN ENRIQUEZ [facility] Encounter Notes: All associated encounter notes This section contains the clinical notes associated to the Encounter. Date/Time Encounter Note(s) Provider Source May 19, 2025 12:45 PM NURSING PROCEDURE NOTE: LOCAL TITLE: [facility] OPERATING ROOM/PROCEDURE FIRE RISK ASSESSMEN STANDARD TITLE: NURSING PROCEDURE NOTE DATE OF NOTE: MAY 19, 2025@12:45 ENTRY DATE: MAY 19, 2025@12:46:05 AUTHOR: JAIRO HICKS COSIGNER: URGENCY: STATUS: COMPLETED PROBLEM: FIRE RISK ASSESSMENT EXPECTED OUTCOME: Patient will remain free from injury related to surgical fire/ procedural fire NURSING ASSESSMENT: A. Is an alcohol-based skin antiseptic or other flammable solution being used preoperatively? Yes, Interventions TIME-OUT to include: Flammable prep solutions were contained in nonflammable packaging. Flammable prep solutions utilized were a unit dosed applicator. Allow flammable skin antiseptics to dry completely and fumes to dissipate per manufacture guidelines prior to applying drapes and before using a potential ignition source. Flammable solution soaked materials have been removed from the OR/Procedural area prior to draping and use of an ignition source. Comments: B. Is the procedure being performed above the xiphoid process or in the oropharynx? Yes, Interventions Coat head and facial hair near the site with water-soluble surgical lubricant to decrease flammability. Use an adhesive incise drape between the surgical/procedural site and the oxygen source. If oxygen concentration is greater than 30% consider laryngeal mask airway or endotracheal tube. Comments: C. Is open oxygen or nitrous oxide being administered (delivery via nasal cannula or face mask)? No D. Is an ESU (Electrical Surgical Unit), laser, or fiber optic cord being used? Yes, Interventions ESU Place the ESU in a location that does not put stress on the electrical cord. Keep the electrical cord dry and free of kinks, knots, and bends. Inspect the ESU cord before use, and do not use it if there is any evidence of breaks, nicks, or cracks in the outer insulation coating. Keep the active electrode cord free of kinks and coils during use. Only the person controlling the active electrode should activate the ESU. Use the lowest possible power setting for the ESU. Store the active electrode in a clean, dry, non-conductive safety holster when it is not in use. Keep sterile drapes or linens away from the activated ESU. Do not use an ignition source to enter the bowel or the trachea. Keep the ESU active electrode away from oxygen, nitrous oxide, or combustible anesthetic gas sources if possible. Do not activate the active electrode in the presence of flammable agents until the agents are dry and vapors have dissipated (eg, alcohol-based skin antiseptics, tinctures, de-fatting agents, collodion, petroleum-based lubricants, phenol, aerosol adhesives, uncured methyl methacrylate). Keep the active electrode tip clean. Use active electrode tips according to the hoop driving machine operator's instructions. Use only active electrodes or return electrodes that are compatible with the ESU. Seat the active electrode tip securely into the electrosurgical hand piece. Do not alter the active electrode tip (eg, by bending, by using insulation sheaths made from flammable materials such as rubber catheters). Activate the active electrode only when it is in close proximity to the target tissue and away from other metal objects that could conduct heat or cause arcing. Inspect minimally invasive electrosurgical instruments for impaired insulation and remove them from service if the insulation is not intact. Use cut or blend settings instead of coagulation when possible. Remove the active electrode tip from the electrosurgical hand piece before discarding it. Remove the batteries or disable the cautery tip before disposing of battery-powered, hand-held cautery units, if applicable. During perineal procedure, use moistened radiopaque sponges to cover or pack the anus. Comments: E. Other possible contributors to fire are present (defibrillator, drills, saws, burrs) No OUTCOME: Option 1. Patient is free from fire/burn injury. Additional comments: /loyda/ JAIRO HICKS REGISTERED NURSE Signed: 05/19/2025 12:47 JAIRO HICKS [facility]
--- OUTSIDE RECORDS SUMMARY | 2025-06-13 11:59 | XMS_ITS | Encounter Summary ---
Author Name [facility] [place] Organization [facility] Address [address] [place] [address] Care Team Providers Care Manager Psychology Name Role Phone JOSUE [employer] Primary Care [...] Patient's Relationship to Policy [facility] JOSE Jose MONDRAGONJOSE MANUEL ITY Nov 17, 2018 [id number] Jose TABARES PATIENT [facility] PRESCRIPT ION EAL Nov 17, 2018 [facility] [id number] Jose TABARES PATIENT [facility] Nov 17, 2018 [id number] [phone] Jose TABARES PATIENT [facility] PREFERRED PROVIDER ORGANIZAT ION (PPO) CARINJEROD MONDRAGONUR ITY Nov 17, 2018 [id number] [phone] Jose TABARES PATIENT Selected Encounter This section includes the information on record at [place] for the Encounter. Date/Time Encounter Type Encounter Description Reason Provider Source Feb 21, 2025 03:56 PM Outpatient Encounter CLINICAL PHARMACY ICD-10-CM F43.11 Post-traumati c stress disorder, acute AKILAH PUGH Tatyana Encounter Template Text not used by [place] Assessments - Encounter Diagnoses This section includes the primary and secondary diagnoses documented for the Encounter. Date/Time Primary/Secondary Diagnosis Diagnosis Name Provider Source Feb 21, 2025 04:05 PM PRIMARY Post-traumatic stress disorder, acute AKILAH PUGH [facility] Feb 21, 2025 04:05 PM SECONDARY Other specified depressive episodes AKILAH PUGH [facility] Plan of Treatment: Future Appointments (+ 6 months) and Future Tests (+/- 45 days) The Plan of Treatment section includes future care activities for the [facility] This section includes future appointments and future orders which are active, pending or scheduled. Future Appointments This section includes appointments that were scheduled to occur 6 months from the date of the Encounter, up to a maximum of 20 appointments. The data comes from all [place] treatment facilities. Appointment Date/Time Appointment Type Appointme nt Facility Name Mar 08, 2025 02:00 PM AMBULATORY - MEDICINE [facility] April 06, 2025 01:15 PM AMBULATORY - MEDICINE [facility] May 10, 2025 11:20 AM AMBULATORY - SURGERY . [facility] May 11, 2025 01:30 PM AMBULATORY - MEDICINE [facility] May 17, 2025 02:40 PM AMBULATORY - MEDICINE [facility] May 19, 2025 11:00 AM AMBULATORY - NONE [facility] May 23, 2025 02:00 PM AMBULATORY - PSYCHIATRY [facility] May 24, 2025 10:40 AM AMBULATORY - SURGERY [facility] Jun 08, 2025 10:40 AM AMBULATORY - SURGERY [facility] Jun 15, 2025 10:15 AM AMBULATORY - MEDICINE [facility] Jun 21, 2025 02:30 PM AMBULATORY - PSYCHIATRY [facility] Aug 17, 2025 02:00 PM AMBULATORY - MEDICINE [facility] Active, Pending, and Scheduled [...] Laboratory - Chemistry Order CBC BLOOD [facility] Mar 11, 2025 12:00 AM Laboratory - Chemistry Order COMPREHENSIVE METABOLIC PANEL GREEN LI/HEP BLD/PLAS PLASMA [facility] Mar 11, 2025 12:00 AM Laboratory - Chemistry Order TSH ([place]-PB) GOLD/RED SST SERUM [facility] Mar 11, 2025 12:00 AM Laboratory - Chemistry Order HGA1C BLOOD [facility] Mar 11, 2025 12:00 AM Laboratory - Chemistry Order LIPID PANEL (STL) GREEN LI/HEP BLD/PLAS PLASMA [facility] Lab Results: +/- 30 days of the encounter This section includes the Chemistry and Hematology Lab Results on record with [place] for the patient. Radiology Reports and Pathology Reports are provided separately, in subsequent sections. Lab Results This section contains the Chemistry/Hematology Results that were resulted 30 days before or 30 daysafter the date of the Encounter. Date/Time Source Result Type Result - Unit Interpretation Reference Range Specimen Type Comment Jan 24, 2025 12:04 PM [facility] LIPASE PLASMA Specimen Type: PLASMA Comment: No hemolysis noted. K Called to Dr Mora at 1312 on 01/24/2025 by JUVENTINO Critical Verbal Readback Performed Ordering Provider: RENEE MORA Report Released Date/Time: Jan 24, 2025 11:14 AM Reporting Lab: [facility] [address] [facility] [address] Performing Lab: [address] [address] LIPASE 45 U/L 8-78 Jan 24, 2025 12:04 PM [facility] COMPREHENSIVE METABOLIC PANEL PLASMA Specimen Type: PLASMA Comment: No hemolysis noted. K Called to Dr Mora at 1312 on 01/24/2025 by JUVENTINO Sy Verbal Readback Performed Ordering Provider: AIDEN MORA Report Released Date/Time: Jan 24, 2025 11:14 AM Reporting Lab: [address] [address] Performing Lab: [address] [address] CREATININE 0.75 mg/dL 0.7-1.3 UREA NITROGEN 5.9 [...] 114.8 >60 Jan 24, 2025 12:04 PM [facility] CBC BLOOD Specimen Type: BLOOD No comment entered. Ordering Provider: AIDEN MORA Report Released Date/Time: Jan 24, 2025 11:14 AM Reporting Lab: [address] [address] Performing Lab: [address] [address] WBC 8.0 10*3/uL 3.6-11.2 RBC 4.37 10*6/uL [...] and tobacco- related health factors from the [place] facility where the Encounter took place. Current Smoking Status This section includes the most current smoking, or tobacco-related health factor, from the [place] facility where the Encounter took place. Date/Time Current Smoking Status Comment Devorah itvamsi Jun 05, 2023 11:00 AM VA-TOBACCO USER SOME DAYS [facility] Tobacco Use History This section includes a history of the smoking, or tobacco-related health factors, that were collected on or before the date of the Encounter. The data comes from the [place] facility where the Encounter took place. Date/Time Smoking Status/Tobacco Use Comment F acility Jun 05, 2023 11:00 AM VA-TOBACCO USE 5 TO 15 YEARS [facility] Jun 05, 2023 11:00 AM VA-TOBACCO USE ADVICE [facility] Jun 05, 2023 11:00 AM VA-TOBACCO USE MANAGER ENROLLMENT NO [facility] Jun 05, 2023 11:00 AM VA-TOBACCO USE MED NO [facility] Jun 05, 2023 11:00 AM VA-TOBACCO USER SOME DAYS [facility] April 16, 2022 03:00 PM VA-TOBACCO FORMER USER [facility] April 16, 2022 03:00 PM VA-TOBACCO QUIT < 1 YEAR [facility] Nov 14, 2020 09:38 AM VA-TOBACCO USE 1 TO < 5 YEARS [facility] Nov 14, 2020 09:38 AM VA-TOBACCO USE ADVICE [facility] Nov 14, 2020 09:38 AM VA-TOBACCO USE MANAGER ENROLLMENT NO [facility] Nov 14, 2020 09:38 AM VA-TOBACCO USE MED NO [facility] Nov 14, 2020 09:38 AM VA-TOBACCO USE WI 30 MIN OF WAKEUP [facility] Nov 14, 2020 09:38 AM VA-TOBACCO USER EVERY DAY [facility] Feb 08, 2019 10:08 AM VA-TOBACCO FORMER USER [facility] Feb 08, 2019 10:08 AM VA-TOBACCO QUIT 1 TO < 5 YRS [facility] Oct 17, 2017 03:25 PM CURRENT TOBACCO USER [facility] Oct 17, 2017 03:25 PM CURRENT TOBACCO US ER (NOT READY TO QUIT) [facility] Oct 17, 2017 03:25 PM TOBACCO CESSATION REFERRAL DECLINED [facility] Oct 17, 2017 03:25 PM TOBACCO MEDS OFFER ED BUT DECLINED [facility] Oct 17, 2017 03:25 PM TOBACCO USER OFFERED MEDS [facility] Jul 02, 2017 03:19 PM CURRENT TOBACCO USER [facility] Advance Directives: All historical and current Section Date Range: From patient's date of to the date document was created. This section includes ALL of a patient's completed or amended [place] Advance and Rescinded Directives. The entries below indicate that a directive exists for the patient, but an actual copy is not included with this document. The data comes from all [place] facilities. Date Advance Directives Provider Source May 07, 2023 ADVANCE DIRECTIVE DARLEEN ENRIQUEZ [facility] Radiology Reports: +/- 30 days of the [...] the Encounter. The data comes from all [place] treatment facilities. Date/Time Radiology Report Provider Source Jan 24, 2025 02:[address] ABD PEL W/CONT & 3D: ELEONORA TABARES [id number] -[id number] M Exm Date: JAN 24, 2025@14:41 Req Phys: TAYLOR MCKINLEY Loc: [facility]ERGENCY DEPT 2ND SHIFT (R Img Loc: [facility] Service: Unknown [facility], [address] [place] [address] (Case [id number] COMPLETE) CT ABDOMEN AND PELVIS W/CONTRAST (CT Detailed) CPT:94964 Contrast Media : Non-ionic Iodinated Reason for Study: upper abdominal pain Clinical History: Responsible Attending: Manisha Attending Contact Number: [phone] Resident Contact Number: acute on chronic abdominal pain Allergies listed in CPRS chart: Patient has answered NKA Creatinine:CREATININE 0.75 mg/dL 01/24/2025 12:04 /eGFR: STL EGFR (within one year). CREATININE 0.75 mg/dL (01/24/25 12:04) Wt: 149 lb [67.59 kg] (01/24/2025 10:41) History of: Renal failure, chronic or acute renal disease: NO Report Status: Verified Date Reported: JAN 24, 2025 Date Verified: JAN 24, 2025 Supervisor [employer] E-Sig:/ES/RADHA CARISSAELIANE Report: Case [id number]. CT ABDOMEN AND PELVIS W/CONTRAST. IV contrast: [...] Report dictated by Johnny Whitehead M.D. (radiology rn) I, Radha Jenkins, have reviewed the images and report and concur with these findings. Primary Interpreting Staff: RADHA JENKINS, Staff Physician (Supervisor [employer]) Primary Interpreting Resident: Sharron Cisneros, Resident /RADHA PACKER [facility] Encounter Notes: All associated encounter notes This section contains the clinical notes associated to the Encounter. Date/Time Encounter Note(s) Provider Source Feb 21, 2025 03:56 PM PHARMACY CONSULT: LOCAL TITLE: PHARMACY PRIOR APPROVAL CONSULT [facility] STANDARD TITLE: PHARMACY CONSULT DATE OF NOTE: FEB 21, 2025@15:56 ENTRY DATE: FEB 21, 2025@15:56:57 AUTHOR: AKILAH PUGH COSIGNER: URGENCY: STATUS: COMPLETED The medical record has been reviewed with regard to this prior authorization drug request. Medication requested: MIRTAZAPINE 15MG DISINTEGRATING TAB Medication indication: PTSD Medication: mirtazipine ODT Strength: 15mg Sig: qhs po Quantity: 90 Refills: 3 Medical history relevant to this request: Patient with 20lb wt loss in the last year. Problems with nausea and vomiting and keeping things down. He is followed by GI. He is currently treated with mirtazapine however would like to switch to ODT with goal of improved tolerability and adherence. The request is approved - A documented adverse reaction occurred with the preferred formulary alternative(s) TIME REVIEWING CHART:10. (minutes) /loyda/ Akilah Pugh PharmJoeDJoe, [facility] Clinical Pharmacist Practitioner Signed: 02/21/2025 16:05 AKILAH PUGH [facility]
--- OUTSIDE RECORDS SUMMARY | 2025-06-13 11:59 | XMS_ITS | Encounter Summary ---
Author Name [facility] [place] [facility] ([place] Organization [facility] [place] [facility] Address [address] [place] [address] Care Team Providers Care Career Agent Name Role Phone [employer] Primary Care [...] [facility] JOSE Jose NEGRETE ITY Nov 17, 2018 [id number] [phone] Jose TABARES PATIENT [employer] [facility] PRESCRIPT ION UHEAL TH Nov 17, 2018 [facility] [id number] Jose TABARES PATIENT [facility] Jose NEGRETE ITY Nov 17, 2018 [id number] [phone] Jose TABARES PATIENT [facility] PREFERRED PROVIDER ORGANIZAT ION (PPO) JOSE NEGRETE ITY Nov 17, 2018 [id number] [phone] Jose TABARES PATIENT Selected Encounter This section includes the information on record at [place] for the Encounter. Date/Time Encounter Type Encounter Description Reason Provider Source Jan 24, 2025 12:35 PM EMERGENCY DEPT VISIT MOD [facility] EMERGENCY DEPT ICD-10-CM E87.6 Hypokalemia RADHA ZAMORA Encounter Template Text not used by [place] Assessments - Encounter Diagnoses This section includes the primary and secondary diagnoses documented for the Encounter. Date/Time Primary/Secondary Diagnosis Diagnosis Name Provider Source Jan 24, 2025 05:48 PM PRIMARY Hypokalemia TAYLOR MCKINLEY [facility] Jan 24, 2025 05:48 PM SECONDARY Upper abdominal pain, unspecified TAYLOR MCKINLEY [facility] Plan of Treatment: Future Appointments (+ 6 months) and Future Tests (+/- 45 days) The Plan of Treatment section includes future care activities for the patient [facility] [place] [facility]. This section includes future appointments and future orders which are active, pending or scheduled. Future Appointments This section includes appointments that were scheduled to occur 6 months from the date of the Encounter, up to a maximum of 20 appointments. The data comes from all [place] treatment facilities. Appointment Date/Time Appointment Type Appointme nt Facility Name Feb 21, 2025 12:30 PM AMBULATORY - PSYCHIATRY [facility] Mar 08, 2025 02:00 PM AMBULATORY - MEDICINE [facility] April 06, 2025 01:15 PM AMBULATORY - MEDICINE [facility] May 10, 2025 11:20 AM AMBULATORY - SURGERY [facility] May 11, 2025 01:30 PM AMBULATORY - MEDICINE [facility] May 17, 2025 02:40 PM AMBULATORY - MEDICINE [facility] May 19, 2025 11:00 AM AMBULATORY - NONE [facility] May 23, 2025 02:00 PM AMBULATORY - PSYCHIATRY [facility] May 24, 2025 10:40 AM AMBULATORY - SURGERY [facility] Jun 08, 2025 10:40 AM AMBULATORY - SURGERY [facility] Jun 15, 2025 10:15 AM AMBULATORY - MEDICINE [facility] Jun 21, 2025 02:30 PM AMBULATORY - PSYCHIATRY [facility] Lab Results: +/- 30 days of the encounter This section includes the Chemistry and Hematology Lab Results on record with [place] for the patient. Radiology Reports and Pathology Reports are provided separately, in subsequent sections. Lab Results This section contains the Chemistry/Hematology Results that were resulted 30 days before or 30 daysafter the date of the Encounter. Date/Time Source Result Type Result - Unit Interpretation Reference Range Specimen Type Comment Jan 24, 2025 12:[address] [facility] LIPASE PLASMA Specimen Type: PLASMA Comment: No hemolysis noted. K Called to Dr Gerardo at 1312 on 01/24/2025 by JUVENTINO Critical Verbal Readback Performed Ordering Provider: RENEE GERARDO Report Released Date/Time: Jan 24, 2025 11:14 AM Reporting Lab: [address] [address] Performing Lab: [address] [address] LIPASE 45 U/L 8-78 Jan 24, 2025 12:[address] [facility] COMPREHENSIVE METABOLIC PANEL PLASMA Specimen Type: PLASMA Comment: No hemolysis noted. K Called to Dr Gerardo at 1312 on 01/24/2025 by JUVENTINO Critical Verbal Readback Performed Ordering Provider: AIDEN GERARDO Report Released Date/Time: Jan 24, 2025 11:14 AM Reporting Lab: [facility] [address] [place] [id number] Performing Lab: [address] [address] CREATININE 0.75 mg/dL 0.7-1.3 UREA NITROGEN 5.9 [...] 114.8 >60 Jan 24, 2025 12:[address] [facility] CBC BLOOD Specimen Type: BLOOD No comment entered. Ordering Provider: AIDEN GERARDO Report Released Date/Time: Jan 24, 2025 11:14 AM Reporting Lab: [facility] [address] [facility] [address] Performing Lab: [facility] [address] [facility] [address] WBC 8.0 10*3/uL 3.6-11.2 RBC 4.37 10*6/uL [...] 04:51 PM 90 133/78 18 98 0 [facility] Jan 24, 2025 02:00 PM 104 124/78 19 99 [facility] Jan 24, 2025 12:43 PM 98.1 111 133/91 16 10 [facility] Jan 24, 2025 10:41 AM 97.7 97 120/82 18 98 10 149 21 [facility] N Social History: Smoking Status (Most current) and Tobacco Use (All prior to encounter date) This section includes the most current, and the historical, smoking and tobacco- related health factors from the [place] facility where the Encounter took place. Current Smoking Status This section includes the most current smoking, or tobacco-related health factor, from the [place] facility where the Encounter took place. Date/Time Current Smoking Status Comment Facil ity [facility] 05[facility] 2024 11[facility] [address] [facility] Tobacco Use History This section includes a history of the smoking, or tobacco-related health factors, that were collected on or before the date of the Encounter. The data comes from the [place] facility where the Encounter took place. Date/Time Smoking Status/Tobacco Use Comment F acility Aug 05, 2024 11:55 AM [place]-TOBACCO QUIT 5 TO < [address] [facility] May 07, 2023 06:21 AM [facility] ADMIT TOBACCO SCREEN YES [facility] May 07, 2023 06:21 AM [facility] ADMIT TOBACCO USE CIGS LS 5D 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 May 07, 2023 06:21 AM [facility] DAILY TOBACCO MEDS REFUSED [facility] Oct 27, 2013 02:51 PM QUIT TOBACCO >[address] [facility] Jan 07, 2013 10:01 AM CURRENT TOBACCO USER [facility] Jan 07, 2013 10:01 AM TOBACCO MEDS OFFER ED BUT DECLINED [facility] Sep 18, 2011 12:08 PM QUIT TOBACCO IN TH E LAST [address] [facility] Jul 25, 2011 03:33 PM CURRENT TOBACCO USER [facility] Jul 20, 2010 10:35 AM QUIT TOBACCO IN TH E LAST [address] [facility] Advance Directives: All historical and current Section Date Range: From patient's date of to the date document was created. This section includes ALL of a patient's completed or amended [place] Advance and Rescinded Directives. The entries below indicate that a directive exists for the patient, but an actual copy is not included with this document. The data comes from all [facility]. Date Advance Directives Provider Source May 07, 2023 ADVANCE DIRECTIVE MINANATASHACe Garcia [facility] Radiology Reports: +/- 30 days of [...] the Encounter. The data comes from all [place] treatment facilities. Date/Time Radiology Report Provider Source Jan 24, 2025 02:[address] ABD PEL W/CONT & 3D: ELEONORA TABARES [id number] -[id number] M Exm Date: JAN 24, 2025@14:41 Req Phys: TAYLOR MCKINLEY Loc: [facility]ERG[facility]Y DEPT 2ND SHIFT (R Img Loc: -CT IMAGING Service: [address] [address] (Case [id number] COMPLETE) CT ABDOMEN AND PELVIS W/CONTRAST (CT Detailed) CPT:40961 Contrast Media : Non-ionic Iodinated Reason for Study: upper abdominal pain Clinical History: Responsible Attending: Manisha Attending Contact Number: [phone] Resident Contact Number: acute on chronic abdominal pain Allergies listed in CPRS chart: Patient has answered NKA Creatinine:CREATININE 0.75 mg/dL 01/24/2025 12:04 /eGFR: STL EGFR (within one year). CREATININE 0.75 mg/dL (01/24/25 12:04) Wt: 149 lb [67.59 kg] (01/24/2025 10:41) History of: Renal failure, chronic or acute renal disease: NO Report Status: Verified Date Reported: JAN 24, 2025 Date Verified: JAN 24, 2025 Senior Support Analyst E-Sig:/ES/RADHA GEE Report: Case [id number]. CT ABDOMEN AND PELVIS W/CONTRAST. IV contrast: [...] edema. Report dictated by Johnny Whitehead M.D. (assistant to the president) I, Radha Gee, have reviewed the images and report and concur with these findings. Primary Interpreting Staff: RADHA GEE, Staff Physician (Senior Support Analyst) Primary Interpreting Resident: Sharron Cisneros Resident /RADHA PACKER [facility] Encounter Notes: All associated encounter notes This section contains the clinical notes associated to the Encounter. Date/Time Encounter Note(s) Provider Source Jan 24, 2025 03:22 PM ADDENDUM: LOCAL TITLE: Addendum STANDARD TITLE: ADDENDUM DATE OF NOTE: JAN 24, 2025@15:22:21 ENTRY DATE: JAN 24, 2025@15:22:22 AUTHOR: RADHA ZAMORA EXP COSIGNER: URGENCY: STATUS: COMPLETED Addendum: Handoff to me at 1510, patient with clinically apparent chronic abdominal pain, awaiting balance of work-up, advanced imaging, symptomatic treatment and/or consultation. See note, Dr Mckinley. Chart reviewed, concur with assessment, management and disposition. See orders. Report: Case [id number]. CT ABDOMEN AND PELVIS W/CONTRAST. IV contrast: [...] edema. Report dictated by Johnny Whitehead M.D. (assistant to the president) I, Radha Gee, have reviewed the images and report and concur with these findings. Primary Interpreting Staff: RADHA GEE, Staff Physician [id number] -reevaluated, feeling much better. Updated on results of labs and CT. Discussed plan for discharge home with outpatient follow-up. With recurrent hypokalemia, may consider follow-up with nephrology but will defer this decision to PCP. IV KCl was just started. Will discontinue that and prescribe outpatient oral KCl for this evening and low-dose for the next week. CLINICAL IMPRESSION: 1 -hypokalemia 2 -abdominal pain DISCHARGE INSTRUCTIONS AND PATIENT-DIRECTED FOLLOW-UP RECOMMENDATIONS: DIET: regular, per routine ACTIVITY: ad marcelo NEW MEDS: Bentyl has been prescribed for you by your GI doctor. ADDITIONAL INSTRUCTIONS: Please follow-up with your primary care provider and as directed by GI MEDICATION RECONCILIATION: CONTINUE ALL PRESCRIBED MEDICATIONS DIRECTED FOLLOW-UP WITH PRIMARY ENGINEER SPECIALIST/SPECIALIST: routine in 1-2 weeks if not improving, sooner if worse RETURN TO EMERGENCY: if symptoms worsen, new symptoms develop, or any worries or concerns /es/ RADHA ZAMORA MD STAFF PHYSICIAN Signed: 01/24/2025 16:43 Receipt Acknowledged By: 01/27/2025 13:56 /es/ Josue Ngo MD Staff Physician --- Original Document --- 01/24/25 EMERGENCY DEPARTMENT ST[facility]: TRIAGE CHIEF COMPLAINT: abdominal pain HPI: Patient is a 44-year-old male with past medical history of depression, anxiety, PTSD, TBI, low back pain, alcohol abuse, palpitations and abdominal pain who comes to the emergency department from GI clinic. He tells me he was sent for CT scan. He reports a long history of abdominal pain but over the past 4 days he has had nausea, vomiting and worsening of his chronic upper abdominal pain. Denies any fevers or chills. Denies any diarrhea. He was prescribed dicyclomine today by GI, but has not picked up the prescription as he came straight to the emergency department. I reached out to Dr. Gerardo. The plan will be for K replacement as K was 2.[address] today. He does smoke, drinks occasionally and uses marijuana which he does not want to consider cutting back on. Will but I replace it with? REVIEW OF SYSTEMS: See HPI for further details. All 10 systems reviewed and otherwise negative unless otherwise detailed herein. PAST MEDICAL HISTORY: 1) Low back pain (SNOMED CT 102269177) 2) Traumatic brain injury with no loss of consciousness (SNOMED CT 608301077) 3) Acute posttraumatic stress disorder following combat (SNOMED CT 762496705) 4) Concussion (ICD-9-CM 850.9) 5) Anxiety * (ICD-9-CM 300.00/300.09) 6) Depression * (ICD-9-CM 311./300.4) 7) Attention-deficit hyperactivity disorder * 8) Unemployment 9) Palpitations (ICD-9-CM 785.1) 10) Routine General Medical Examination at a Health Care Facility * (ICD-9-CM V70.0) 11) Lumbosacral radiculopathy (SNOMED CT 8749489) 12) Tobacco use 13) Pain 14) Abnormal blood pressure 15) Chronic depression 16) Admits alcohol use 17) Insomnia 18) Alcohol abuse 19) Hypokalemia 20) Posttraumatic stress disorder 21) Bilateral carpal tunnel syndrome 22) Gastroesophageal reflux disease CURRENT MEDICATIONS: Active Outpatient Medications (including Supplies): Active Outpatient [...] TAKE ONE TABLET BY MOUTH THREE ACTIVE (S) TIMES A DAY NEEDED FOR ABDOMINAL PAIN [...] TO FOOD. Indication: FOR GASTROESOPHAGEAL REFLUX DISEASE No medications found.. I have reviewed the patient's medication list with the patient and/or his/her care-web applications architect. Any medication discrepancies have been resolved. Patient will be provided with an updated list of his/her medication(s). SURGICAL HISTORY: not pertinent FAMILY HISTORY: not pertinent SOCIAL HISTORY: Social History Main Topics: Smoking status: 10/17/2017 Current Tobacco User Alcohol Use: not indorsed Negative mg/dL (03/30/24 12:07) Illicit Drug Use: not indorsed Sexual Activity: Other Topics of Concern: Child bearing age: N/A LMP: N/A possible: N/A ALLERGIES: Review of patient's allergies indicates: Patient has answered NKA PHYSICAL EXAM: VITAL SIGNS: 133/91 (01/24/2025 12:43)111 (01/24/2025 12:43)98% (01/24/2025 10:41)98.1 F [36.7 C] (01/24/2025 12:43)16 (01/24/2025 12:43)The OBJECT WEIGHT LAST 3 was NOT found...Contact IRM. MAThe OBJECT was NOT found...Contact IRM.PAIN ASSESSMENTThe OBJECT was NOT found...Contact IRM. Measurement DT PAIN 01/24/2025 12:43 10 01/24/2025 10:41 10 CONSTITUTIONAL: Alert, thin, when I went to get him from the waiting room, he was laying on his back on the floor of the emergency department, accompanied by his father HENT: airway patent EYES: Conj pink, sclera clear NECK: Normal range of motion CARDIOVASCULAR: Normal heart rate ABDOMEN: Thin, soft, points to his upper abdomen as area of pain but no reproducible tenderness on my exam. No rebound or guarding NEUROLOGIC: Alert & oriented x 3, Normal motor function, Normal gait, no ataxia, No focal deficits appreciated on cursory screening exam SKIN: Warm, Dry, No erythema, No rash LABS: WBC 8.0 10*3/uL 3.6 - 11.2 RBC 4.37 10*6/uL 4.10 - 5.70 HGB 13.5 g/dL 13.1 - 16.8 HCT 37.2 L % 38.2 - 48.4 MCV 85.1 fL 80.0 - 100.0 MCH 30.9 pg 27.0 - 34.0 MCHC 36.3 H g/dL 33.0 - 36.0 RDW 12.4 % 11.8 - 15.1 PLT 276 10*3/uL 150 - 400 LIPASE 45 U/L 8 - 78 SODIUM 135 L mEq/L 136 - 145 POTASSIUM 2.9 L* mEq/L 3.5 - 5 CHLORIDE 95 L mEq/L 98 - 107 UREA NITROGEN 5.9 L mg/dL 9.0 - 25.0 CREATININE 0.75 mg/dL 0.7 - 1.3 CALCIUM 9.6 mg/dL 8.4 - 10.4 PROTEIN 8.0 g/dL 6 - 8.6 ALBUMIN 4.7 g/dL 3.4 - 5 ALKALINE PHOSPHATASE 50 U/L 40 - 150 ALT/SGPT 161 H U/L 8 - 40 AST/SGOT 70 H U/L 5 - 34 TOTAL BILIRUBIN 0.4 mg/dL 0.2 - 1.2 CARBON DIOXIDE 26 mEq/L 22 - 31 GLUCOSE 146 H mg/dL 72 - 99 RADIOLOGY: ECG IMPRESSION: ED COURSE & MEDICAL DECISION MAKING: Nursing notes, medications, vital signs, allergies and pertinent labs & imaging studies reviewed (see chart for details) with lab results reviewed with patient and family/caregivers at bedside and radiology results reviewed with patient and any family/caregivers at bedside. Stable, alert, nontoxic, nonfocal with clinically apparent acute on chronic abdominal pain with hypokalemia from labs in the outpatient setting. He is alert, abdominal exam is benign but the plan will be for potassium replacement and a CT scan. The plan will be for discharge home if CT reassuring with continued outpatient GI follow-up. I encouraged him to consider abandoning his marijuana use as this certainly could be contributing to his GI symptoms. 3:20 Care signed over to Dr. Zamora- CHELSIE pending. Plan for d/c home w outpatient GI f/u if reassuring. Clinical information obtained from an independent historian. History obtained from or confirmed by: ___spouse x___parent ___guardian ___family ___friend ___EMS ___other: Discussed with radiology regarding test interpretation: I performed an independent interpretation of: ___EKG ___rhythm strip ___plain x-ray ___ultrasound _x__CT scan ___MRI ___other Patient's care impacted by: ___Diabetes ___Hypertension ___Cancer ___other: Patient's care is significantly limited by social determinants of health including, but not limited to: ___inadequate housing ___low income ___alcoholism and drug addiction in family ___problems related to primary support group ___unemployment ___problems with employment ___language barrier ___lack of transportation ___psychiatric disease ___other social determinants of health: External records reviewed: ___Inpatient records ___office records ___outpatient records ___prior outpatient labs ___prior outpatient radiology ___primary care record ___outside ED record ___PMD referral ___outside ER ___urgent care referral ___other: Management of the patient was discussed with: ___Hospitalist ___consultant ___behavioral health provider ___primary care provider ___other: The following testing was considered but ultimately was not performed after discussion with the patient/family: I considered prescription management with the following but ultimately did not prescribe: ___pain medication ___antiviral ___antibiotic ___other: I considered admission/ observation but decided upon discharge due to: 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: MEDICATIONS GIVEN IN ED: [ x ] YES [ ] NO IVF Dicyclomine Oral and IV K DISPOSITION CONDITION:[x ] Improved [ ] Unchanged [ ] Deteriorated CLINICAL IMPRESSION: 1 - Chronic abdominal pain 2 - hypokalemia 3 - DISCHARGE INSTRUCTIONS AND PATIENT-DIRECTED FOLLOW-UP RECOMMENDATIONS: DIET: regular ACTIVITY: ad marcelo NEW MEDS: MEDICATION RECONCILIATION: CONTINUE ALL PRESCRIBED MEDICATIONS DIRECTED EXCEPT: FOLLOW-UP WITH PRIMARY ENGINEER SPECIALIST/SPECIALIST: routine in 1-2 weeks if not improving, sooner if worse RETURN TO EMERGENCY: if any worries or concerns ADDITIONAL SIGNATURE PCP: [ x] YES [ ] NO [ ] not listed Active Outpatient Medications (including Supplies): Active Outpatient [...] TAKE ONE TABLET BY MOUTH THREE ACTIVE (S) TIMES A DAY NEEDED FOR ABDOMINAL PAIN [...] TO FOOD. Indication: FOR GASTROESOPHAGEAL REFLUX DISEASE x /es/ TAYLOR MCKINLEY MD EMERGENCY MEDICINE Signed: 01/24/2025 15:09 Receipt Acknowledged By: 01/24/2025 15:23 /es/ RADHA ZAMORA MD STAFF PHYSICIAN RADHA ZAMORA [facility] Jan 24, 2025 01:52 PM PHYSICIAN EMERGENC Y DEPT NOTE: LOCAL TITLE: EMERGENCY DEPARTMENT STL STANDARD TITLE: PHYSICIAN EMERGENCY DEPT NOTE DATE OF NOTE: JAN 24, 2025@13:52 ENTRY DATE: JAN 24, 2025@13:52:13 AUTHOR: TAYLOR MCKINLEY EXP COSIGNER: URGENCY: STATUS: COMPLETED EMERGENCY DEPARTMENT STL Has ADDENDA TRIAGE CHIEF COMPLAINT: abdominal pain HPI: Patient is a 44-year-old male with past medical history of depression, anxiety, PTSD, TBI, low back pain, alcohol abuse, palpitations and abdominal pain who comes to the emergency department from GI clinic. He tells me he was sent for CT scan. He reports a long history of abdominal pain but over the past 4 days he has had nausea, vomiting and worsening of his chronic upper abdominal pain. Denies any fevers or chills. Denies any diarrhea. He was prescribed dicyclomine today by GI, but has not picked up the prescription as he came straight to the emergency department. I reached out to Dr. Gerardo. The plan will be for K replacement as K was 2.[address] today. He does smoke, drinks occasionally and uses marijuana which he does not want to consider cutting back on. Will but I replace it with? REVIEW OF SYSTEMS: See HPI for further details. All 10 systems reviewed and otherwise negative unless otherwise detailed herein. PAST MEDICAL HISTORY: 1) Low back pain (SNOMED CT 358045087) 2) Traumatic brain injury with no loss of consciousness (SNOMED CT 802522326) 3) Acute posttraumatic stress disorder following combat (SNOMED CT 077334146) 4) Concussion (ICD-9-CM 850.9) 5) Anxiety * (ICD-9-CM 300.00/300.09) 6) Depression * (ICD-9-CM 311./300.4) 7) Attention-deficit hyperactivity disorder * 8) Unemployment 9) Palpitations (ICD-9-CM 785.1) 10) Routine General Medical Examination at a Health Care Facility * (ICD-9-CM V70.0) 11) Lumbosacral radiculopathy (SNOMED CT 7093895) 12) Tobacco use 13) Pain 14) Abnormal blood pressure 15) Chronic depression 16) Admits alcohol use 17) Insomnia 18) Alcohol abuse 19) Hypokalemia 20) Posttraumatic stress disorder 21) Bilateral carpal tunnel syndrome 22) Gastroesophageal reflux disease CURRENT MEDICATIONS: Active Outpatient Medications (including Supplies): Active Outpatient [...] TAKE ONE TABLET BY MOUTH THREE ACTIVE (S) TIMES A DAY NEEDED FOR ABDOMINAL PAIN [...] TO FOOD. Indication: FOR GASTROESOPHAGEAL REFLUX DISEASE No medications found.. I have reviewed the patient's medication list with the patient and/or his/her care-web applications architect. Any medication discrepancies have been resolved. Patient will be provided with an updated list of his/her medication(s). SURGICAL HISTORY: not pertinent FAMILY HISTORY: not pertinent SOCIAL HISTORY: Social History Main Topics: Smoking status: 10/17/2017 Current Tobacco User Alcohol Use: not indorsed Negative mg/dL (03/30/24 12:07) Illicit Drug Use: not indorsed Sexual Activity: Other Topics of Concern: Child bearing age: N/A LMP: N/A possible: N/A ALLERGIES: Review of patient's allergies indicates: Patient has answered NKA PHYSICAL EXAM: VITAL SIGNS: 133/91 (01/24/2025 12:43)111 (01/24/2025 12:43)98% (01/24/2025 10:41)98.1 F [36.7 C] (01/24/2025 12:43)16 (01/24/2025 12:43)The OBJECT WEIGHT LAST 3 was NOT found...Contact IRM. MAThe OBJECT was NOT found...Contact IRM.PAIN ASSESSMENTThe OBJECT was NOT found...Contact IRM. Measurement DT PAIN 01/24/2025 12:43 10 01/24/2025 10:41 10 CONSTITUTIONAL: Alert, thin, when I went to get him from the waiting room, he was laying on his back on the floor of the emergency department, accompanied by his father HENT: airway patent EYES: Conj pink, sclera clear NECK: Normal range of motion CARDIOVASCULAR: Normal heart rate ABDOMEN: Thin, soft, points to his upper abdomen as area of pain but no reproducible tenderness on my exam. No rebound or guarding NEUROLOGIC: Alert & oriented x 3, Normal motor function, Normal gait, no ataxia, No focal deficits appreciated on cursory screening exam SKIN: Warm, Dry, No erythema, No rash LABS: WBC 8.0 10*3/uL 3.6 - 11.2 RBC 4.37 10*6/uL 4.10 - 5.70 HGB 13.5 g/dL 13.1 - 16.8 HCT 37.2 L % 38.2 - 48.4 MCV 85.1 fL 80.0 - 100.0 MCH 30.9 pg 27.0 - 34.0 MCHC 36.3 H g/dL 33.0 - 36.0 RDW 12.4 % 11.8 - 15.1 PLT 276 10*3/uL 150 - 400 LIPASE 45 U/L 8 - 78 SODIUM 135 L mEq/L 136 - 145 POTASSIUM 2.9 L* mEq/L 3.5 - 5 CHLORIDE 95 L mEq/L 98 - 107 UREA NITROGEN 5.9 L mg/dL 9.0 - 25.0 CREATININE 0.75 mg/dL 0.7 - 1.3 CALCIUM 9.6 mg/dL 8.4 - 10.4 PROTEIN 8.0 g/dL 6 - 8.6 ALBUMIN 4.7 g/dL 3.4 - 5 ALKALINE PHOSPHATASE 50 U/L 40 - 150 ALT/SGPT 161 H U/L 8 - 40 AST/SGOT 70 H U/L 5 - 34 TOTAL BILIRUBIN 0.4 mg/dL 0.2 - 1.2 CARBON DIOXIDE 26 mEq/L 22 - 31 GLUCOSE 146 H mg/dL 72 - 99 RADIOLOGY: ECG IMPRESSION: ED COURSE & MEDICAL DECISION MAKING: Nursing notes, medications, vital signs, allergies and pertinent labs & imaging studies reviewed (see chart for details) with lab results reviewed with patient and family/caregivers at bedside and radiology results reviewed with patient and any family/caregivers at bedside. Stable, alert, nontoxic, nonfocal with clinically apparent acute on chronic abdominal pain with hypokalemia from labs in the outpatient setting. He is alert, abdominal exam is benign but the plan will be for potassium replacement and a CT scan. The plan will be for discharge home if CT reassuring with continued outpatient GI follow-up. I encouraged him to consider abandoning his marijuana use as this certainly could be contributing to his GI symptoms. 3:20 Care signed over to Dr. Zamora- CHELSIE pending. Plan for d/c home w outpatient GI f/u if reassuring. Clinical information obtained from an independent historian. History obtained from or confirmed by: ___spouse x___parent ___guardian ___family ___friend ___EMS ___other: Discussed with radiology regarding test interpretation: I performed an independent interpretation of: ___EKG ___rhythm strip ___plain x-ray ___ultrasound _x__CT scan ___MRI ___other Patient's care impacted by: ___Diabetes ___Hypertension ___Cancer ___other: Patient's care is significantly limited by social determinants of health including, but not limited to: ___inadequate housing ___low income ___alcoholism and drug addiction in family ___problems related to primary support group ___unemployment ___problems with employment ___language barrier ___lack of transportation ___psychiatric disease ___other social determinants of health: External records reviewed: ___Inpatient records ___office records ___outpatient records ___prior outpatient labs ___prior outpatient radiology ___primary care record ___outside ED record ___PMD referral ___outside ER ___urgent care referral ___other: Management of the patient was discussed with: ___Hospitalist ___consultant ___behavioral health provider ___primary care provider ___other: The following testing was considered but ultimately was not performed after discussion with the patient/family: I considered prescription management with the following but ultimately did not prescribe: ___pain medication ___antiviral ___antibiotic ___other: I considered admission/ observation but decided upon discharge due to: 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: MEDICATIONS GIVEN IN ED: [ x ] YES [ ] NO IVF Dicyclomine Oral and IV K DISPOSITION CONDITION:[x ] Improved [ ] Unchanged [ ] Deteriorated CLINICAL IMPRESSION: 1 - Chronic abdominal pain 2 - hypokalemia 3 - DISCHARGE INSTRUCTIONS AND PATIENT-DIRECTED FOLLOW-UP RECOMMENDATIONS: DIET: regular ACTIVITY: ad marcelo NEW MEDS: MEDICATION RECONCILIATION: CONTINUE ALL PRESCRIBED MEDICATIONS DIRECTED EXCEPT: FOLLOW-UP WITH PRIMARY ENGINEER SPECIALIST/SPECIALIST: routine in 1-2 weeks if not improving, sooner if worse RETURN TO EMERGENCY: if any worries or concerns ADDITIONAL SIGNATURE PCP: [ x] YES [ ] NO [ ] not listed Active Outpatient Medications (including Supplies): Active Outpatient [...] TAKE ONE TABLET BY MOUTH THREE ACTIVE (S) TIMES A DAY NEEDED FOR ABDOMINAL PAIN [...] TO FOOD. Indication: FOR GASTROESOPHAGEAL REFLUX DISEASE x /es/ TAYLOR MCKINLEY MD EMERGENCY MEDICINE Signed: 01/24/2025 15:09 Receipt Acknowledged By: 01/24/2025 15:23 /es/ RADHA ZAMORA MD STAFF PHYSICIAN 01/24/2025 ADDENDUM STATUS: COMPLETED Addendum: Handoff to me at 1510, patient with clinically apparent chronic abdominal pain, awaiting balance of work-up, advanced imaging, symptomatic treatment and/or consultation. See note, Dr Mckinley. Chart reviewed, concur with assessment, management and disposition. See orders. Report: Case [id number]. CT ABDOMEN AND PELVIS W/CONTRAST. IV contrast: [...] edema. Report dictated by Johnny Whitehead M.D. (assistant to the president) I, Radha Gee, have reviewed the images and report and concur with these findings. Primary Interpreting Staff: RADHA GEE, Staff Physician 1630 -reevaluated, feeling much better. Updated on results of labs and CT. Discussed plan for discharge home with outpatient follow-up. With recurrent hypokalemia, may consider follow-up with nephrology but will defer this decision to PCP. IV KCl was just started. Will discontinue that and prescribe outpatient oral KCl for this evening and low-dose for the next week. CLINICAL IMPRESSION: 1 -hypokalemia 2 -abdominal pain DISCHARGE INSTRUCTIONS AND PATIENT-DIRECTED FOLLOW-UP RECOMMENDATIONS: DIET: regular, per routine ACTIVITY: ad marcelo NEW MEDS: Bentyl has been prescribed for you by your GI doctor. ADDITIONAL INSTRUCTIONS: Please follow-up with your primary care provider and as directed by GI MEDICATION RECONCILIATION: CONTINUE ALL PRESCRIBED MEDICATIONS DIRECTED FOLLOW-UP WITH PRIMARY ENGINEER SPECIALIST/SPECIALIST: routine in 1-2 weeks if not improving, sooner if worse RETURN TO EMERGENCY: if symptoms worsen, new symptoms develop, or any worries or concerns /es/ RADHA ZAMORA MD STAFF PHYSICIAN Signed: 01/24/2025 16:43 Receipt Acknowledged By: * AWAITING SIGNATURE * JOSUE 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 Since last night has been having NV and upper abd pain which is his normal when he has these episodes. Patient coming to ER for IVF and pain meds. Patient seen by GI today and prescribed dicyclomine but has not tried this yet. Level of Consciousness (AVPU): Alert = Appears aware of and responsive to the environment on their own. Follows commands, opens eyes spontaneously, and tracks objects. Vital Signs: Temperature 98.1 F (36.7 C) Pulse 111 Respirations 16 Blood Pressure 133/91 Pulse Oximetry 98 Room Air Pain: DVPRS Scale Location: [facility] Pain Rating Scale (DVPRS): Pain Score: 10 Patient's acceptable pain goal: Suicide Screen: Towns Suicide Severity Rating Scale (C-SSRS) screener 1. [...] required due to responses to other questions. Emergency Severity Index (NOHEMY) level: Level 3 Previously documented allergies: Patient has answered NKA Current Problems: 1) Low back pain (SNOMED CT 299819855) 2) Traumatic brain injury with no loss of consciousness (SNOMED CT 133588910) 3) Acute posttraumatic stress disorder following combat (SNOMED CT 834464082) 4) Concussion (ICD-9-CM 850.9) 5) Anxiety * (ICD-9-CM 300.00/300.09) 6) Depression * (ICD-9-CM 311./300.4) 7) Attention-deficit hyperactivity disorder * 8) Unemployment 9) Palpitations (ICD-9-CM 785.1) 10) Routine General Medical Examination at a Health Care Facility * (ICD-9-CM V70.0) 11) Lumbosacral radiculopathy (SNOMED CT 2959069) 12) Tobacco use 13) Pain 14) Abnormal blood pressure 15) Chronic depression 16) Admits alcohol use 17) Insomnia 18) Alcohol abuse 19) Hypokalemia 20) Posttraumatic stress disorder 21) Bilateral carpal tunnel syndrome 22) Gastroesophageal reflux disease /loyda/ ONEIL DYER RN REGISTERED NURSE Signed: 01/24/2025 12:44 01/24/2025 ADDENDUM STATUS: COMPLETED 1330 Vet ambulated to ed room 10A a/o x 4, no added complaint from triage. Vet placed on mine geologist, pulse ox and bp, vss. Vet denies any chest pain or sob, respirations even and non-labored, skin warm and dry, lung sounds CTA bilaterally. 1342 #20G IV placed lfa, IV flushing w/o difficulty, no sign of infiltrate at site. 1400 ERMD gave verbal instruction to give ns/k+ and dont given ns without potassium. 1420 vet up ad marcelo to edwc for transport to radiology 1510 vet returned to ed from ct 1600 vet given NS/K+ infusion, dicyclomine 10mg and potassium 40meq as ordered 1620 ermd gave verbal instruction to stop potassium infusion, stated he will give rx for potassium pills. /loyda/ SELINA APARICIO REGISTERED NURSE Signed: 01/24/2025 16:50 01/24/2025 ADDENDUM STATUS: COMPLETED 1635 vet provided discharge instructions, educated o n rx, diagnosis and follow up, vet educated on the imporotance of taking meds as ordered, vet educated on the effects of hypokalemia on the heart and body, vet denies ant chest pain or sob, vet aware ermd [id number] verbal instruction to stop infusion prior to completion and importance of taking oral meds as ordered, verbalized understanding, encouraged to return to ed if symptoms return, #20g iv removed from lac, catheter intact, up ad marcelo with a steady gait, ambulated out of ed with dad to pharmacy. /saranya APARICIO REGISTERED NURSE Signed: 01/24/2025 17:52 01/24/2025 ADDENDUM STATUS: COMPLETED vet walked out of ed at 1655 /saranya APARICIO REGISTERED NURSE Signed: 01/24/2025 17:56 ONEIL DYER [facility]
[2025-06-13 12:25] VITALS: BP 149/109; PULSE 138; RESP 20; TEMP 36.4; O2SAT 99
--- NOTE | 2025-06-13 12:29 | ECG_ITS ---
Test Date: 2025-06-13 12:34:13 Measurements Intervals [place] Rate: 130 P: 70 NV: 141 QRS: 48 QRSD: 101 T: 53 QT: 302 QTc: 445 Interpretive Statements SINUS TACHYCARDIA Electronically Signed On 06-14-2025 16:04:49 CDT by Freddy Lamb D.O
--- NOTE | 2025-06-13 12:30 | ED.EXTPRO ---
HPI - Extremity Problem General Chief complaint: Extremity Problem,Nontraumatic Stated complaint: [facility] Time Seen by Provider: 06/13/25 12:30 Focused HPI: Patient is a 45-year-old male who presents to the ER with complaints of left hand pain following surgery. He reports he had carpal tunnel surgery approximately 2 and half weeks ago at the [facility]. Patient reports he is concerned his hand is infected and wants his stitches out. He denies any other medical history relevant to this ER visit. Patient denies any chest pain, shortness of breath, or recent fevers. When patient was asked about his tachycardia he reports it is always high. GENERAL: Well-appearing, well-nourished, and in no acute distress. HEAD: Normocephalic, atraumatic. CHEST: Clear to auscultation. ?No respiratory distress. HEART: Tachycardia ? NEURO: ?Alert and oriented x3. Patient screened in triage and initial orders placed.? ?Additional care and disposition to be based upon?diagnostic testing and treatment. 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 He is . He has a teenage daughter. He denies any history of drug use except for the marijuana use as mentioned above. She smoked up to 1.5 pack per day for total of 5-6 years when he was in the [employer]. He switched to vaping and using nicotine gum and has been intermittently using nicotine for the past 20 years. He started smoking 10 months ago and is currently smoking 5 cigarettes a day. He drinks 3-5 nights per week usually consuming 5-6 drinks per night. He was in [place] and saw combat. 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 He nominates his father Kurt to be the individual would make medical decisions for him if he is unable. Years smoked: 1 Smoking status: Current every day smoker Tobacco type: cigarettes Second hand tobacco smoke exposure: Yes Alcohol intake: current Drinks per week: 25 Substance use: current Substance use type: marijuana Spiritual care concerns: No Course Vital Signs Vital signs: Vital Signs Temperature 36.4 C 06/13/25 12:25 Pulse Rate 138 H 06/13/25 12:25 Respiratory Rate 20 06/13/25 12:25 Blood Pressure 149/109 H 06/13/25 12:25 Pulse Oximetry 99 06/13/25 12:25 Oxygen Delivery Room Air 06/13/25 12:25 Temperature 36.4 C 06/13/25 12:25 Pulse Rate 138 H 06/13/25 12:25 Respiratory Rate 20 06/13/25 12:25 Blood Pressure 149/109 H 06/13/25 12:25 Pulse Oximetry 99 06/13/25 12:25 Oxygen Delivery Room Air 06/13/25 12:25 MDM - Extremity (Nontraumatic) Lab Data 06/13/25 12:35 06/13/25 12:35 Labs: Lab Results 06/13/25 06/13/25 Range/Units 12:35 12:41 WBC 6.4 (4.5-10.0) K/mm3 RBC 4.61 (4.6-6.20) M/mm3 Hgb 14.5 (14.0-18.0) g/dL Hct 41.6 L (42.0-52.0) % MCV 90.2 (80-100) fl MCH 31.5 (26-34) pg MCHC 34.9 (32-36) g/dl RDW 11.7 (11.5-14.5) % Plt Count 240 (150-375) k/mm3 MPV 8.6 (7.4-10.4) fl Immature Gran % (Auto) 0.3 (0-0.5) % Neut % (Auto) 41.6 L (45.5-73.1) % Lymph % (Auto) 47.6 H (18.3-44.2) % [place] % (Auto) 7.2 (2.6-8.5) % Eos % (Auto) 2.2 (0-4.4) % Baso % (Auto) 1.1 (0.2-1.2) % Lymph # (Auto) 3.04 (0.9-3.2) K/mm3 [place] # (Auto) 0.5 (0.1-0.6) K/mm3 Eos # (Auto) 0.1 (0-0.3) K/mm3 Baso # (Auto) 0.1 (0.0-0.1) K/mm3 Abs Immat Gran (auto) 0.02 (0.00-0.031) K/mm3 Absolute Neuts (auto) 2.7 (1.3-6.7) K/mm3 Absolute Nucleated RBC 0.000 (0.0-0.012) K/mm3 Nucleated RBC % 0.0 (0.0-0.2) % PT 14.1 (11.1-14.7) Seconds INR 1.1 APTT 26.6 (22.3-36.8) Seconds Sodium 142 (137-145) mmol/L Potassium 3.7 (3.4-5.0) mmol/L Chloride 102 (98-107) mmol/L Carbon Dioxide 26 (22-30) mmol/L Anion Gap 14 H (4-12) mmol/L BUN 9 (9-20) mg/dL Creatinine 0.68 L (0.7-1.3) mg/dL Estim Creat Clear Calc 116 ml/min Estimated GFR > 60 (59 - ) Glucose 110 (65-110) mg/dL Lactic Acid 1.8 (0.7-2.0) mmol/L Calcium 9.1 (8.4-10.2) mg/dL Total Bilirubin 0.5 (0.2-1.3) mg/dL AST 71 H (17-59) U/L ALT 22 (6-50) U/L Alkaline Phosphatase 67 (38-126) U/L Troponin I < 0.012 (0.000-0.034) ng/mL C-Reactive Protein < 0.5 (<1.0) mg/dL Total Protein 8.3 H (6.3-8.2) g/dL Albumin 4.7 (3.5-5.1) g/dL Urine Color Yellow (Yellow) Urine Appearance Clear (Clear) Urine pH 8.0 (5.0-9.0) Ur Specific [place] 1.009 (1.001-1.035) Urine Protein Negative (Negative) mg/dL Urine Glucose (UA) Negative (Negative) mg/dL Urine Ketones Negative (Negative) mg/dL Ur Blood (Man) Negative (Negative) Urine Nitrate Negative (Negative) Urine Bilirubin Negative (Negative) Urine Urobilinogen 1.0 (<2.0) mg/dL Leukocyte Esterase Rfl Negative (Negative) NADJA/UL Urine Opiates Screen Negative (Negative) Urine Methadone Screen Negative (Negative) Ur Barbiturates Screen Negative (Negative) Ur Phencyclidine Scrn Negative (Negative) Ur Amphetamine Screen Negative (Negative) U Benzodiazepines Scrn Positive A (Negative) Urine Cocaine Screen Negative (Negative) U Cannabinoids Screen Positive A (Negative) Discharge Plan Discharge Clinical Impression: Visit for wound check Patient Disposition: Home Condition: Stable Instructions: Antibiotic Form Additional Instructions: Wound care as directed. Oral antibiotic as directed. have close follow-up with your surgeon. Patient Language: Paraguayan Prescriptions: New cephalexin 500 mg capsule 500 mg PO BID 7 Days Qty: 14 0RF No Action doxycycline hyclate 100 mg Tablet 100 mg PO Q12HR Qty: 5 0RF cefdinir 300 mg capsule 300 mg PO DAILY Qty: 2 0RF Rx Instructions: Start on 03/21/22 methylprednisolone [Medrol (Derrick)] 4 mg tablets,dose pack See Rx Instructions .ROUTE .COMPLEX Qty: 21 0RF Rx Instructions: for 6 days cyclobenzaprine 10 mg tablet 10 mg PO TID PRN (Reason: muscle spasm) Qty: 20 0RF Follow-up/Referrals: [facility] [Primary Care Provider] -
[2025-06-13 12:42] LABS: Hematocrit 41.6 % (42.0-52.0); Hemoglobin 14.5 g/dL (14.0-18.0); Immature Granulocyte Percent A 0.3 % (0-0.5); Lymphocytes Absolute Auto 3.04 K/mm3 (0.9-3.2); Mean Corpuscular HGB Conc 34.9 g/dl (32-36); Mean Corpuscular Hemoglobin 31.5 pg (26-34); Mean Corpuscular Volume 90.2 fl (80-100); Nucleated Red Blood Cells Absolute Auto 0.000 K/mm3 (0.0-0.012); Nucleated Red Blood Cells Perc 0.0 % (0.0-0.2); Platelet Count Result 240 k/mm3 (150-375); Red Blood Count 4.61 M/mm3 (4.6-6.20); White Blood Count 6.4 K/mm3 (4.5-10.0)
[2025-06-13 12:50] LABS: Add Urine Microscopic? NO; Appearance Urine Clear (Clear); Glucose Urine UA Negative (Negative); Leukocyte Esterase Ur Negative LEU/UL (Negative); Nitrate Urine Negative (Negative); Specific Grav Ur 1.009 (1.001-1.035)
[2025-06-13 13:04] LABS: INR 1.1; Prothrombin Time 14.1 Seconds (11.1-14.7)
[2025-06-13 13:05] LABS: Partial Thromboplastin Time 26.6 Seconds (22.3-36.8)
--- OUTSIDE RECORDS SUMMARY | 2025-06-13 13:17 | XMS_ITS | Clinical Summary ---
Author Organization [facility] [employer] Address [address] [place] [address] Care Team Providers Care Data Power Consultant Name Role Phone Unavailable Primary Care Provider Unavailabl e Source Comments [facility] [employer],non-owned Affiliates and Associated Physician Practices is amultiple site organization consisting of ambulatory clinics and hospital sitesin [place], [place], [place] and [place]. This disclosure is being madepursuant to the Care Everywhere program and may not contain all information available regarding this patient. Last updated 18.[employer] Allergies No known active allergies Medications * [...] on file Legal Sex Male 9:55 AM [employer] Gender Identity Not on file Sexual Orientation Not on file Last Filed Vital Signs Vital Sign Reading Time Taken Comments Blood Pressure 118/78 12/04/2018 12:30 PM [facility] Pulse 88 12/04/2018 12:30 PM [facility] Temperature 37.1 C (98.8 F) 12/04/2018 12:30 PM [facility] Respiratory Rate 16 12/04/2018 12:30 PM [facility] Oxygen Saturation 99% 12/04/2018 12:30 PM [facility] Inhaled Oxygen Concentration - - Weight 86.2 kg (190 lb) 12/04/2018 12:30 PM [facility] Height 180.3 cm (5' 11) 12/04/2018 12:30 PM [facility] [employer] Body Mass Index 26.5 12/04/2018 12:30 PM [facility] [employer] Plan of Treatment Health Maintenance Due Date [...]
--- OUTSIDE RECORDS SUMMARY | 2025-06-13 13:18 | XMS_ITS | Continuity of Care Document ---
Author Name [facility] Organization [facility] Care Team Providers [facility] Security Director Name Role Phone [facility] Unavailable Unavailable Problems Combined list of problems [...] OR CONDITION ON AXIS I Inactive Condition [facility] PSYCHIATRIC DIAGNOSIS OR CONDITION DEFERRED ON [...] Condition DoD Abnormal blood pressure Active Condition [facility] Acute posttraumatic stress disorder following combat (SNOMED CT 817028813) Active Condition [facility] Admits alcohol use Active Condition [facility] Alcohol abuse Active Condition [facility] Anxiety * (ICD-9-CM 300.00/300.09) Active Condition [facility] Attention-deficit hyperactivity disorder * Active Condition [facility] Bilateral carpal tunnel syndrome Active Condition [facility] Chronic depression Active Condition [facility] Concussion (ICD-9-CM 850.9) Active Condition [facility] Depression * (ICD-9-CM 311./300.4) Active Condition [facility] Gastroesophageal reflux disease Active Condition [facility] Hypokalemia Active Condition [facility] Insomnia Active Condition [facility] Low back pain (SNOMED CT 241716943) Active Condition [facility] Lumbosacral radiculopathy (SNOMED CT 0568638) Active Condition [facility] Pain Active Condition [facility] Palpitations (ICD-9-CM 785.1) Active Condition [facility] Posttraumatic stress disorder Active Condition [facility] Routine General Medical Examination at a Health Care Facility * (ICD-9-CM V70.0) Active Condition [facility] Tobacco use Active Condition [facility] Traumatic brain injury with no loss of consciousness (SNOMED CT 424182148) Active Condition [facility] Unemployment Active Condition [facility] Diagnosis: ICD-10-CM G56.02 Carpal tunnel syndrome, left upper limb Active Diagnosis [facility] Diagnosis: ICD-10-CM E87.6 Hypokalemia Active Diagnosis [facility] Diagnosis: ICD-10-CM G56.00 Carpal tunnel syndrome, unspecified upper limb Active Diagnosis [facility] Diagnosis: ICD-10-CM Z01.818 Encounter for other preprocedural examination Active Diagnosis [facility] Diagnosis: ICD-10-CM K21.9 Gastro-esophageal reflux disease without esophagitis Active Diagnosis [facility] Diagnosis: ICD-10-CM S06.2X0D Diffuse TBI w/o loss of consciousness, subs Active Diagnosis [facility] Diagnosis: ICD-10-CM G56.01 Carpal tunnel syndrome, right upper limb Active Diagnosis [facility] Diagnosis: ICD-10-CM R07.0 Pain in throat Active Diagnosis [facility] Diagnosis: ICD-10-CM F43.11 Post-traumatic stress disorder, acute Active Diagnosis [facility] Diagnosis: ICD-10-CM F43.10 Post-traumatic stress disorder, unspecified Active Diagnosis [facility] Diagnosis: ICD-10-CM R10.13 Epigastric pain Active Diagnosis [facility] Diagnosis: ICD-10-CM Z02.71 Encounter for disability determination Active Diagnosis [facility] Diagnosis: ICD-10-CM Z04.89 Encounter for examination and observation for oth reasons Active Diagnosis [facility] Diagnosis: ICD-10-CM Z01.810 Encounter for preprocedural cardiovascular examination Active Diagnosis [facility] Diagnosis: ICD-10-CM G56.03 Carpal tunnel syndrome, bilateral upper limbs Active Diagnosis [facility] Diagnosis: ICD-10-CM F32.89 Other specified depressive episodes Active Diagnosis [facility] Ramsey CARTER [facility] Diagnosis: ICD-10-CM R03.0 Elevated blood-pressure reading, w/o diagnosis of htn Active Diagnosis [facility] RAMU Rodriguez [facility] Diagnosis: ICD-10-CM F10.90 Alcohol use, unspecified, uncomplicated Active Diagnosis [facility] Diagnosis: ICD-10-CM Z72.0 Tobacco use Active Diagnosis [facility] Diagnosis: ICD-10-CM R52 Pain, unspecified Active Diagnosis [facility] Medications Combined list of outpatient medications from Department of Defense and [facility] Affairs facilities.Medications provided include 1) outpatient medications [...] FROM ALL MEDS. ORAL DISCONT INUED 11/27/2025 [id number] [facility] 2024 200 [facility] ACETAMINOPH EN 500MG TAB TAKE ONE TABLET BY MOUTH EVERY 4 HOURS NEEDED FOR PAIN CAUTION: DO NOT EXCEED 4000MG PER DAY ACETAMIN OPHEN (APAP) FROM ALL MEDS. ORAL ACTIVE 06/18/2025 [id number] 5 ARTCHARISMAR 2024 20 [facility] DICLOFENAC NA 1% GEL,TOP APPLY 4 GM TO AFFECTED AREA(S) FOUR TIMES A DAY NEEDED NO MORE THAN 16 GM/DAY TO ANY LOWER EXTREMIT Y JOINT. NO MORE THAN 8 GM/DAY TO ANY UPPER EXTREMIT Y JOINT. MAX 32GM/DAY OVER ALL JOINTS.( MEASURE DOSE WITH RULER INSIDE BOX) TOPICA L ACTIVE 11/27/2025 [id number] 5 Ce NGO [facility] 2024 200 [facility] DICYCLOMINE HCL 20MG TAB TAKE ONE TABLET BY MOUTH THREE TIMES A DAY NEEDED FOR ABDOMINA L PAIN ORAL 02/23/2025 [id number] 5 MARISABEL ER,JEFFRE Y T 2024 60 [facility] HYDROXYZINE HCL 25MG TAB TAKE ONE TABLET BY MOUTH THREE TIMES A DAY NEEDED *MAY CAUSE DROWSINE SS* ORAL ACTIVE 11/24/2025 [id number] 5 LOITERSTE IN,MARIANO A 2024 180 [facility] HYDROXYZINE HCL 25MG TAB TAKE ONE TABLET BY MOUTH THREE TIMES A DAY NEEDED *MAY CAUSE DROWSINE SS* ORAL DISCONT INUED 07/06/2025 [id number] LOITERSTE IN,MARIANO A 2023 90 [facility] LIDOCAINE 5% PATCH APPLY 1 PATCH TO SKIN SITE ONCE A DAY NEEDED APPLY PATCH AND PRESS FIRMLY FOR 10-15 SECONDS. KEEP ON FOR 12 HOURS THEN REMOVE PATCH FOR 12 HOURS. TRANSD ERMAL ACTIVE 11/27/2025 [id number] 5 Ce NGO [facility] 2024 30 [facility] MELOXICAM 15MG TAB TAKE ONE TABLET BY MOUTH ONCE A DAY NEEDED ORAL DISCONT INUED BY PROVIDE R 06/27/2024 [id number] 4 Ce NGO [facility] 2023 60 [facility] METHOCARBAM OL 750MG TAB TAKE 1 TABLET BY MOUTH TWICE DAILY NEEDED ORAL 12/26/2024 [id number] 5 Ce NGO [facility] 2024 60 [facility] MIRTAZAPINE 15MG,ORALLY DISINTEGRAT ING TAB TAKE ONE TABLET BY MOUTH ONCE A DAY ORAL ACTIVE 02/22/2026 [id number] 5 [facility] 2024 90 [facility] MIRTAZAPINE 30MG TAB TAKE ONE-HALF TABLET BY MOUTH AT BEDTIME ORAL DISCONT INUED BY PROVIDE R 11/24/2025 [id number] 5 [facility] 2024 45 [facility] MIRTAZAPINE 30MG TAB TAKE ONE-HALF TABLET BY MOUTH AT BEDTIME ORAL DISCONT INUED 07/06/2025 [id number] 4 LOITERSTE [facility] 2023 45 [facility] OMEPRAZOLE 40MG CAP,EC TAKE ONE CAPSULE BY MOUTH TWICE DAILY NEEDED TAKE 30 MINUTES PRIOR TO FOOD. ORAL ACTIVE 11/27/2025 [id number] 5 Ce [facility] 2024 60 [facility] OXYCODONE HCL 5MG TAB TAKE ONE TABLET BY MOUTH EVERY 6 HOURS NEEDED FOR POST-OPE RATIVE PAIN MAY CAUSE CONSTIPA TION ORAL ACTIVE 06/18/2025 [id number] 5 MILLY CORDOVA 2024 6 [facility] POTASSIUM CHLORIDE 20MEQ TAB,SA (DISPERSIBL E) TAKE ONE TABLET BY MOUTH ONCE A DAY FOR 1 DAY, THEN TAKE ONE-HALF TABLET ONCE A DAY FOR 6 DAYS FOR ANÍBALU M SUPPLEME NTATION TAKE WITH FOOD ORAL DISCONT INUED 02/23/2025 [id number] 5 TALON ZAMORA 2024 4 [facility] POTASSIUM CHLORIDE 20MEQ TAB,SA (DISPERSIBL E) TAKE ONE TABLET BY MOUTH ONCE A DAY TAKE WITH FOOD ORAL DISCONT INUED BY CHIO Harvey 04/14/2024 [id number] 4 NOAHTALON FITZPATRICK 2023 7 [facility] POTASSIUM CHLORIDE 20MEQ TAB,SA (DISPERSIBL E) TAKE ONE TABLET BY MOUTH ONCE A DAY FOR 1 DAY, THEN TAKE ONE-HALF TABLET ONCE A DAY FOR 6 DAYS FOR ANÍBALU M SUPPLEME NTATION TAKE WITH FOOD ORAL 06/10/2025 [id number] 5 Ce [facility] 2024 4 [facility] PREGABALIN 50MG CAP,ORAL TAKE ONE CAPSULE BY MOUTH TWICE A DAY *MAY CAUSE DROWSINE SS* ORAL 10/29/2024 [id number] 4 Ce [facility] 2023 60 [facility] Allergies, Adverse Reactions, Alerts Combined list of allergies from Department of Defense and Veterans Affairs facilities. It does not include entries that were removed or entered in error. Substance Category Reaction Severity Reaction type Status Date Reported Comments Source No Known Allergies Drug allergy (disorder) active 03/14/2009 [facility] Immunizations Combined list of available immunizations from the Department of Defense and Veterans Affairs facilities. Immunization Series Date Given Administered By Site Reaction Lot Number CVX Code Drug Medicine Man Status Comments Source PNEUMOCOCCAL CONJUGATE PCV20, POLYSACCHARID E [id number] CONJUGATE, ADJUVANT, PF 1 2021 216 complet ed HISTORICA L INFORMATI ON - FROM OTHER REGISTRY, [facility] COVID-19 (PFIZER), MRNA, LNP-S, PF, 30 MCG/0.3 ML DOSE 2 2020 208 complet ed HISTORICA L INFORMATI ON - FROM OTHER RUST, [facility] COVID-19 (PFIZER), MRNA, LNP-S, PF, 30 MCG/0.3 ML DOSE 1 2020 208 complet ed HISTORICA L INFORMATI ON - FROM OTHER REGISTRY, [facility] INFLUENZA, UNSPECIFIED FORMULATION 2017 88 complet ed [facility] TDAP 2016 115 complet ed Left Deltoid [facility] INFLUENZA, UNSPECIFIED FORMULATION 2013 88 complet ed [facility] INFLUENZA, UNSPECIFIED FORMULATION 2013 88 complet ed [facility] INFLUENZA, UNSPECIFIED FORMULATION 2012 88 complet ed [facility] INFLUENZA, UNSPECIFIED FORMULATION 2011 88 complet ed [facility] TDAP 2010 115 complet [facility] influenza virus vaccine, split virus (incl. purified surface antigen)-reti red CODE 1 2010 UNK 15 Unknown (UNK) comple [facility] influenza virus vaccine, split virus (incl. purified surface antigen)- retired CODE [facility] INFLUENZA, UNSPECIFIED FORMULATION 2009 88 complet ed [facility] influenza virus vaccine, live, attenuated, for intranasal use 1 2008 [id number] [employer] (MED) complet influenza virus vaccine, live, attenuate d, for intranasa l use [facility] influenza virus vaccine, live, attenuated, for intranasal use 1 2007 [id number] Unknown (UNK) comple [facility] influenza virus vaccine, live, attenuate d, for intranasa l use [facility] anthrax vaccine 4 2007 UNK 24 Unknown (UNK) comple t ed anthrax vaccine DoD TDAP 2007 115 complet ed [facility] influenza virus vaccine, split virus (incl. purified surface antigen)-reti red CODE 1 2006 [id number] 15 Unknown (UNK) complet influenza virus vaccine, split virus (incl. purified surface antigen)- retired CODE [facility] vaccinia (smallpox) vaccine 1 2006 [id number] 75 [place]) complet ed vaccinia (smallpox ) vaccine DoD typhoid Vi capsular polysaccharid e vaccine 1 2006 [id number] [employer] (AVB) complet ed typhoid Vi capsular polysacch aride vaccine DoD varicella virus vaccine 1 2006 UNK 21 Unknown (UNK) Not Given varicella virus vaccine DoD anthrax vaccine 3 2006 [id number] [employer] [place] ([facility]) complet ed anthrax vaccine DoD hepatitis A and hepatitis B vaccine 3 2006 [id number] 104 [employer] (SKB) complet ed hepatitis A and hepatitis B vaccine DoD influenza virus vaccine, split virus (incl. purified surface antigen)-reti red CODE 1 2006 UNK 15 Unknown (UNK) comple t ed influenza virus vaccine, split virus (incl. purified surface antigen)- retired CODE DoD vaccinia (smallpox) vaccine 1 2004 UNK 75 Unknown (UNK) comple t ed vaccinia (smallpox ) vaccine DoD anthrax vaccine 2 2004 [id number] Cecille (BP) complet ed anthrax vaccine [...] retired CODE DoD anthrax vaccine 1 2004 [id number] 24 Cecille (BP) complet ed anthrax vaccine DoD typhoid Vi capsular polysaccharid e vaccine 1 2004 [id number] San[employer]i Pasteur (PMC) complet ed typhoid [...] 2 Lf of diphtheria toxoid) 1 2003 [id number] Sanofi Pasteur ([facility]) complet ed tetanus and diphtheri a toxoids, adsorbed, preservat migdalia free, for adult use (2 Lf of tetanus toxoid and 2 Lf of diphtheri a toxoid) DoD poliovirus vaccine, inactivated 1 2003 [id number] 10 Sanofi Pasteur (PMC) complet ed polioviru s vaccine, inactivat ed DoD meningococcal polysaccharid e vaccine (MPSV4) 1 2003 UNK 32 Unknown (UNK) comple t ed meningoco ccal polysacch aride vaccine (MPSV4) DoD pneumococcal polysaccharid e vaccine, 23 valent 1 2003 [id number] Sanofi Pasteur (PMC) complet ed pneumococ john polysacch aride vaccine, 23 valent DoD hepatitis A and hepatitis B vaccine 1 2003 [id number] [facility] [employer] (SKB) complet ed hepatitis A and [...] May 09, 2025 12:21 PM Reporting Lab: [facility] [address] [facility] [address] Performing Lab: [facility] [address] [facility] [address] [facility] BASIC METABOLI C PANEL UREA NITROGEN [MASS/VOLU ME] IN SERUM OR PLASMA 4.1 mg/dL 9.0 - 25.0 05/10 L Specimen Type: PLASMA Comment: No hemolysis noted. Ordering Provider: NAHUM BALTAZAR Report Released Date/Time: May 09, 2025 12:21 PM Reporting Lab: [facility] [address] [facility] [address] Performing Lab: [facility] [address] [facility] [address] [facility] BASIC METABOLI C PANEL GLUCOSE [MASS/VOLU ME] IN SERUM OR PLASMA 59 mg/dL 72 - 99 05/10 L Specimen Type: PLASMA Comment: No hemolysis noted. Ordering Provider: NAHUM BALTAZAR Report Released Date/Time: May 09, 2025 12:21 PM Reporting Lab: [place] [address] [facility] [address] Performing Lab: [address] [address] [facility] BASIC METABOLI C PANEL SODIUM [MOLES/VOL UME] IN SERUM OR PLASMA 139 meq/L 136 - 145 05/10 Specimen Type: PLASMA Comment: No hemolysis noted. Ordering Provider: NAHUM BALTAZAR Report Released Date/Time: May 09, 2025 12:21 PM Reporting Lab: [place] [address] [facility] [address] Performing Lab: [place] [address] [facility] [address] [facility] BASIC METABOLI C PANEL POTASSIUM [MOLES/VOL UME] IN SERUM OR PLASMA 3.4 meq/L 3.5 - 5 05/10 L Specimen Type: PLASMA Comment: No hemolysis noted. Ordering Provider: NAHUM BALTAZAR Report Released Date/Time: May 09, 2025 12:21 PM Reporting Lab: [place] [address] [facility] [address] Performing Lab: [address] [address] [facility] BASIC METABOLI C PANEL CHLORIDE [MOLES/VOL UME] IN SERUM OR PLASMA 104 meq/L 98 - 107 05/10 Specimen Type: PLASMA Comment: No hemolysis noted. Ordering Provider: NAHUM BALTAZAR Report Released Date/Time: May 09, 2025 12:21 PM Reporting Lab: [facility] [address] [facility] [address] Performing Lab: [place] [address] [facility] [address] [facility] BASIC METABOLI C PANEL CARBON DIOXIDE, TOTAL [MOLES/VOL UME] IN SERUM OR PLASMA 28 meq/L 22 - 31 05/10 Specimen Type: PLASMA Comment: No hemolysis noted. Ordering Provider: NAHUM BALTAZAR Report Released Date/Time: May 09, 2025 12:21 PM Reporting Lab: [place] [address] [facility] [address] Performing Lab: [place] [address] [facility] [address] [facility] BASIC METABOLI C PANEL CALCIUM [MASS/VOLU ME] IN SERUM OR PLASMA 9.1 mg/dL 8.4 - 10.4 05/10 Specimen Type: PLASMA Comment: No hemolysis noted. Ordering Provider: NAHUM BALTAZAR Report Released Date/Time: May 09, 2025 12:21 PM Reporting Lab: [place] [address] [facility] [address] Performing Lab: [place] [address] [facility] [address] [facility] BASIC METABOLI C PANEL GLOMERULAR FILTRATION RATE/1.73 SQ M.PREDICTE D [VOLUME RATE/AREA] IN SERUM, PLASMA OR BLOOD BY CREATININE -BASED FORMULA (CKD-EPI 2020) 119.4 60 05/10 Specimen Type: PLASMA Comment: No hemolysis noted. Ordering Provider: NAHUM BALTAZAR Report Released Date/Time: May 09, 2025 12:21 PM Reporting Lab: [place] [address] [facility] [address] Performing Lab: [place] [address] [facility] [address] [facility] CBC LEUKOCYTES [#/VOLUME] IN BLOOD BY AUTOMATED COUNT 7.1 10*3/uL 3.6 - 11.2 05/10 Specimen Type: BLOOD No comment entered. Ordering Provider: NAHUM BALTAZAR Report Released Date/Time: May 09, 2025 12:21 PM Reporting Lab: [address] [address] Performing Lab: [address] [address] [facility] CBC ERYTHROCYT ES [#/VOLUME] IN BLOOD BY AUTOMATED COUNT 3.92 10*6/uL 4.10 - 5.70 05/10 L Specimen Type: BLOOD No comment entered. Ordering Provider: NAHUM BALTAZAR Report Released Date/Time: May 09, 2025 12:21 PM Reporting Lab: [address] [address] Performing Lab: [address] [address] [facility] CBC HEMOGLOBIN [MASS/VOLU ME] IN BLOOD 12.7 g/dL 13.1 - 16.8 05/10 L Specimen Type: BLOOD No comment entered. Ordering Provider: NAHUM BALTAZAR Report Released Date/Time: May 09, 2025 12:21 PM Reporting Lab: [address] [address] Performing Lab: [address] [address] [facility] CBC HEMATOCRIT [VOLUME FRACTION] OF BLOOD 38.1 38.2 - 48.4 05/10 L Specimen Type: BLOOD No comment entered. Ordering Provider: NAHUM BALTAZAR Report Released Date/Time: May 09, 2025 12:21 PM Reporting Lab: [address] [address] Performing Lab: [address] [address] [facility] CBC MCV [ENTITIC VOLUME] BY AUTOMATED COUNT 97.2 fL 80.0 - 100.0 05/10 Specimen Type: BLOOD No comment entered. Ordering Provider: NAHUM BALTAZAR Report Released Date/Time: May 09, 2025 12:21 PM Reporting Lab: [address] [address] Performing Lab: [address] [address] [facility] CBC MCH [ENTITIC MASS] BY AUTOMATED COUNT 32.4 pg 27.0 - 34.0 05/10 Specimen Type: BLOOD No comment entered. Ordering Provider: NAHUM BALTAZAR Report Released Date/Time: May 09, 2025 12:21 PM Reporting Lab: [address] [address] Performing Lab: [address] [address] [facility] CBC MCHC [MASS/VOLU ME] BY AUTOMATED COUNT 33.3 g/dL 33.0 - 36.0 05/10 Specimen Type: BLOOD No comment entered. Ordering Provider: NAHUM BALTAZAR Report Released Date/Time: May 09, 2025 12:21 PM Reporting Lab: [address] [address] Performing Lab: [address] [address] [facility] CBC PLATELETS [#/VOLUME] IN BLOOD BY AUTOMATED COUNT 429 10*3/uL 150 - 400 05/10 H Specimen Type: BLOOD No comment entered. Ordering Provider: NAHUM BALTAZAR Report Released Date/Time: May 09, 2025 12:21 PM Reporting Lab: [address] [address] Performing Lab: [address] [address] [facility] CBC PLATELET MEAN VOLUME [ENTITIC VOLUME] IN BLOOD BY AUTOMATED COUNT 8.1 fL 7.5 - 11.2 05/10 Specimen Type: BLOOD No comment entered. Ordering Provider: NAHUM BALTAZAR Report Released Date/Time: May 09, 2025 12:21 PM Reporting Lab: [facility] [address] [facility] [address] Performing Lab: [facility] [address] [place] [address] [facility] CBC ERYTHROCYT E DISTRIBUTI ON WIDTH [RATIO] BY AUTOMATED COUNT 11.8 11.8 - 15.1 05/10 Specimen Type: BLOOD No comment entered. Ordering Provider: NAHUM BALTAZAR Report Released Date/Time: May 09, 2025 12:21 PM Reporting Lab: [facility] [address] [place] [address] Performing Lab: [facility] [address] [facility] [address] [facility] CBC LYMPHOCYTE S/100 LEUKOCYTES IN BLOOD BY AUTOMATED COUNT 31 05/10 Specimen Type: BLOOD No comment entered. Ordering Provider: NAHUM BALTAZAR Report Released Date/Time: May 09, 2025 12:21 PM Reporting Lab: [facility] [address] [place] [address] Performing Lab: [facility] [address] [place] [phone] [facility] CBC MONOCYTES/ 100 LEUKOCYTES IN BLOOD BY AUTOMATED COUNT 12 05/10 Specimen Type: BLOOD No comment entered. Ordering Provider: NAHUM BALTAZAR Report Released Date/Time: May 09, 2025 12:21 PM Reporting Lab: [facility] [address] [place] [address] Performing Lab: [facility] [address] [facility] [address] [facility] CBC NEUTROPHIL S/100 LEUKOCYTES IN BLOOD BY AUTOMATED COUNT 51 05/10 Specimen Type: BLOOD No comment entered. Ordering Provider: NAHUM BALTAZAR Report Released Date/Time: May 09, 2025 12:21 PM Reporting Lab: [facility] [address] [facility] [address] Performing Lab: [facility] [address] [facility] [address] [facility] CBC EOSINOPHIL S/100 LEUKOCYTES IN BLOOD BY AUTOMATED COUNT 4 05/10 Specimen Type: BLOOD No comment entered. Ordering Provider: NAHUM BALTAZAR Report Released Date/Time: May 09, 2025 12:21 PM Reporting Lab: [facility] [address] Performing Lab: [place] [address] [facility] [address] [facility] CBC BASOPHILS/ 100 LEUKOCYTES IN BLOOD BY AUTOMATED COUNT 2 05/10 Specimen Type: BLOOD No comment entered. Ordering Provider: NAHUM BALTAZAR Report Released Date/Time: May 09, 2025 12:21 PM Reporting Lab: [facility] [address] [facility] [address] Performing Lab: [place] [address] [facility] [address] [facility] CBC LYMPHOCYTE S [#/VOLUME] IN BLOOD BY AUTOMATED COUNT 2.19 10*3/uL 0.77 - 4.50 05/10 Specimen Type: BLOOD No comment entered. Ordering Provider: NAHUM BALTAZAR Report Released Date/Time: May 09, 2025 12:21 PM Reporting Lab: [facility] [address] [facility] [address] Performing Lab: [facility] [address] [facility] [address] [facility] CBC MONOCYTES [#/VOLUME] IN BLOOD BY AUTOMATED COUNT 0.85 10*3/uL 0.19 - 0.80 05/10 H Specimen Type: BLOOD No comment entered. Ordering Provider: NAHUM BALTAZAR Report Released Date/Time: May 09, 2025 12:21 PM Reporting Lab: [address] [address] Performing Lab: [address] [address] [facility] CBC NEUTROPHIL S [#/VOLUME] IN BLOOD BY AUTOMATED COUNT 3.58 10*3/uL 2.10 - 8.00 05/10 Specimen Type: BLOOD No comment entered. Ordering Provider: NAHUM BALTAZAR Report Released Date/Time: May 09, 2025 12:21 PM Reporting Lab: [address] [address] Performing Lab: [address] [address] [facility] CBC EOSINOPHIL S [#/VOLUME] IN BLOOD BY AUTOMATED COUNT 0.27 10*3/uL 0.00 - 0.60 05/10 Specimen Type: BLOOD No comment entered. Ordering Provider: NAHUM BALTAZAR Report Released Date/Time: May 09, 2025 12:21 PM Reporting Lab: [address] [address] Performing Lab: [address] [address] [facility] CBC BASOPHILS [#/VOLUME] IN BLOOD BY AUTOMATED COUNT 0.12 10*3/uL 0.00 - 0.20 05/10 Specimen Type: BLOOD No comment entered. Ordering Provider: NAHUM BALTAZAR Report Released Date/Time: May 09, 2025 12:21 PM Reporting Lab: [address] [address] Performing Lab: [address] [address] [facility] CBC LEUKOCYTES [#/VOLUME] IN BLOOD BY AUTOMATED COUNT 8.0 10*3/uL 3.6 - 11.2 01/24 Specimen Type: BLOOD No comment entered. Ordering Provider: AIDEN GERARDO Report Released Date/Time: Jan 24, 2025 11:14 AM Reporting Lab: [address] [address] Performing Lab: [address] [address] [facility] CBC ERYTHROCYT ES [#/VOLUME] IN BLOOD BY AUTOMATED COUNT 4.37 10*6/uL 4.10 - 5.70 01/24 Specimen Type: BLOOD No comment entered. Ordering Provider: AIDEN GERARDO Report Released Date/Time: Jan 24, 2025 11:14 AM Reporting Lab: [address] [address] Performing Lab: [address] [phone] CBC HEMOGLOBIN [MASS/VOLU ME] IN BLOOD 13.5 g/dL 13.1 - 16.8 01/24 Specimen Type: BLOOD No comment entered. Ordering Provider: AIDEN GERARDO Report Released Date/Time: Jan 24, 2025 11:14 AM Reporting Lab: [place] [address] [facility] [address] Performing Lab: [phone] [place] [address] CBC HEMATOCRIT [VOLUME FRACTION] OF BLOOD 37.2 38.2 - 48.4 01/24 L Specimen Type: BLOOD No comment entered. Ordering Provider: AIDEN GERARDO Report Released Date/Time: Jan 24, 2025 11:14 AM Reporting Lab: [address] [address] Performing Lab: [address] [address] [facility] CBC MCV [ENTITIC VOLUME] BY AUTOMATED COUNT 85.1 fL 80.0 - 100.0 01/24 Specimen Type: BLOOD No comment entered. Ordering Provider: AIDEN GERARDO Report Released Date/Time: Jan 24, 2025 11:14 AM Reporting Lab: [address] [address] Performing Lab: [facility] [address] [place] [phone] [facility] CBC MCH [ENTITIC MASS] BY AUTOMATED COUNT 30.9 pg 27.0 - 34.0 01/24 Specimen Type: BLOOD No comment entered. Ordering Provider: AIDEN GERARDO Report Released Date/Time: Jan 24, 2025 11:14 AM Reporting Lab: [address] [address] Performing Lab: [address] [phone] [place] [address] CBC MCHC [MASS/VOLU ME] BY AUTOMATED COUNT 36.3 g/dL 33.0 - 36.0 01/24 H Specimen Type: BLOOD No comment entered. Ordering Provider: AIDEN GERARDO Report Released Date/Time: Jan 24, 2025 11:14 AM Reporting Lab: [address] [address] Performing Lab: [address] [address] [facility] CBC PLATELETS [#/VOLUME] IN BLOOD BY AUTOMATED COUNT 276 10*3/uL 150 - 400 01/24 Specimen Type: BLOOD No comment entered. Ordering Provider: AIDEN GERARDO Report Released Date/Time: Jan 24, 2025 11:14 AM Reporting Lab: [address] [address] Performing Lab: [address] [address] [facility] CBC PLATELET MEAN VOLUME [ENTITIC VOLUME] IN BLOOD BY AUTOMATED COUNT 8.8 fL 7.5 - 11.2 01/24 Specimen Type: BLOOD No comment entered. Ordering Provider: AIDEN GERARDO Report Released Date/Time: Jan 24, 2025 11:14 AM Reporting Lab: [facility] [address] [facility] [address] Performing Lab: [facility] [address] [facility] [address] [facility] CBC ERYTHROCYT E DISTRIBUTI ON WIDTH [RATIO] BY AUTOMATED COUNT 12.4 11.8 - 15.1 01/24 Specimen Type: BLOOD No comment entered. Ordering Provider: AIDEN GERARDO Report Released Date/Time: Jan 24, 2025 11:14 AM Reporting Lab: [facility] [address] [facility] [address] Performing Lab: [facility] [address] [facility] CBC SEGMENTED NEUTROPHIL S/100 LEUKOCYTES IN BLOOD BY MANUAL COUNT 68.4 01/24 Specimen Type: BLOOD No comment entered. Ordering Provider: AIDEN GERARDO Report Released Date/Time: Jan 24, 2025 11:14 AM Reporting Lab: [facility] [address] [facility] [address] Performing Lab: [facility] [address] [facility] [address] [facility] CBC MONOCYTES/ 100 LEUKOCYTES IN BLOOD BY AUTOMATED COUNT 13.2 01/24 Specimen Type: BLOOD No comment entered. Ordering Provider: AIDEN GERARDO Report Released Date/Time: Jan 24, 2025 11:14 AM Reporting Lab: [facility] [address] [facility] [address] Performing Lab: [facility] [address] [facility] [address] [facility] CBC BASOPHILS/ 100 LEUKOCYTES IN BLOOD BY MANUAL COUNT 0.9 01/24 Specimen Type: BLOOD No comment entered. Ordering Provider: AIDEN GERARDO Report Released Date/Time: Jan 24, 2025 11:14 AM Reporting Lab: [facility] [address] [facility] [address] Performing Lab: [facility] [address] [facility] [address] [facility] CBC PAPPENHEIM ER BODIES 0 01/24 Specimen Type: BLOOD No comment entered. Ordering Provider: AIDEN GERAROD Report Released Date/Time: Jan 24, 2025 11:14 AM Reporting Lab: [facility] [address] [facility] [address] Performing Lab: [place] [address] [facility] [address] [facility] CBC LYMPHOCYTE S/100 LEUKOCYTES IN BLOOD BY MANUAL COUNT 9.6 01/24 Specimen Type: BLOOD No comment entered. Ordering Provider: AIDEN GERARDO Report Released Date/Time: Jan 24, 2025 11:14 AM Reporting Lab: [facility] [address] [facility] [address] Performing Lab: [place] [address] [facility] [address] [facility] CBC VARIANT LYMPHOCYTE S/100 LEUKOCYTES IN BLOOD BY MANUAL COUNT 7.9 01/24 Specimen Type: BLOOD No comment entered. Ordering Provider: AIDEN GERARDO Report Released Date/Time: Jan 24, 2025 11:14 AM Reporting Lab: [facility] [address] [facility] [address] Performing Lab: [place] [address] [facility] [address] [facility] CBC PLATELET ADEQUACY [PRESENCE] IN BLOOD BY LIGHT MICROSCOPY ADEQUATE 01/24 Specimen Type: BLOOD No comment entered. Ordering Provider: AIDEN GERARDO Report Released Date/Time: Jan 24, 2025 11:14 AM Reporting Lab: [facility] [address] [facility] [address] Performing Lab: [facility] [address] [facility] [address] [facility] CBC MANUAL DIFFERENTI AL COMMENT [INTERPRET ATION] IN BLOOD NARRATIVE Yes 01/24 Specimen Type: BLOOD No comment entered. Ordering Provider: AIDEN GERARDO Report Released Date/Time: Jan 24, 2025 11:14 AM Reporting Lab: [place] [address] [facility] [address] Performing Lab: [place] [address] [facility] [address] [facility] CBC BASOPHILS [#/VOLUME] IN BLOOD BY MANUAL COUNT 0.07 10*3/uL 0.01 - 0.20 01/24 Specimen Type: BLOOD No comment entered. Ordering Provider: AIDEN GERARDO Report Released Date/Time: Jan 24, 2025 11:14 AM Reporting Lab: [place] [address] [facility] [address] Performing Lab: [place] [address] [facility] [address] [facility] CBC MONOCYTES [#/VOLUME] IN BLOOD BY MANUAL COUNT 1.06 10*3/uL 0.19 - 0.80 01/24 H Specimen Type: BLOOD No comment entered. Ordering Provider: AIDEN GERARDO Report Released Date/Time: Jan 24, 2025 11:14 AM Reporting Lab: [place] [address] [facility] [address] Performing Lab: [place] [address] [facility] [address] [facility] CBC LYMPHOCYTE S [#/VOLUME] IN BLOOD BY MANUAL COUNT 1.40 10*3/uL 0.77 - 4.50 01/24 Specimen Type: BLOOD No comment entered. Ordering Provider: AIDEN GERARDO Report Released Date/Time: Jan 24, 2025 11:14 AM Reporting Lab: [address] [place] [address] Performing Lab: [facility] [address] [place] [phone] [facility] CBC NEUTROPHIL S [#/VOLUME] IN BLOOD BY MANUAL COUNT 5.47 10*3/uL 2.10 - 8.00 01/24 Specimen Type: BLOOD No comment entered. Ordering Provider: AIDEN GERARDO Report Released Date/Time: Jan 24, 2025 11:14 AM Reporting Lab: [place] [address] [facility] [address] Performing Lab: [address] [address] [facility] COMPREHE NSIVE METABOLI C PANEL CREATININE [MASS/VOLU ME] IN SERUM OR PLASMA 0.75 mg/dL 0.7 - 1.3 01/24 Specimen Type: PLASMA Comment: No hemolysis noted. K Called to Dr Gerardo at 1312 on 01/24/2025 by JUVENTINO Critical Verbal Readback Performed Ordering Provider: AIDEN GERARDO Report Released Date/Time: Jan 24, 2025 11:14 AM Reporting Lab: [address] [address] Performing Lab: [place] [address] [facility] [address] [facility] COMPREHE NSIVE METABOLI C PANEL UREA NITROGEN [MASS/VOLU ME] IN SERUM OR PLASMA 5.9 mg/dL 9.0 - 25.0 01/24 L Specimen Type: PLASMA Comment: No hemolysis noted. K Called to Dr Gerardo at 1312 on 01/24/2025 by JUVENTINO Critical Verbal Readback Performed Ordering Provider: AIDEN GERARDO Report Released Date/Time: Jan 24, 2025 11:14 AM Reporting Lab: [place] [address] [facility] [address] Performing Lab: [place] [address] [facility] [address] [facility] COMPREHE NSIVE METABOLI C PANEL GLUCOSE [MASS/VOLU ME] IN SERUM OR PLASMA 146 mg/dL 72 - 99 01/24 H Specimen Type: PLASMA Comment: No hemolysis noted. K Called to Dr Gerardo at 1312 on 01/24/2025 by JUVENTINO Critical Verbal Readback Performed Ordering Provider: AIDEN GERARDO Report Released Date/Time: Jan 24, 2025 11:14 AM Reporting Lab: [facility] [address] [facility] [address] Performing Lab: [facility] [address] [facility] [address] [facility] COMPREHE NSIVE METABOLI C PANEL SODIUM [MOLES/VOL UME] IN SERUM OR PLASMA 135 meq/L 136 - 145 01/24 L Specimen Type: PLASMA Comment: No hemolysis noted. K Called to Dr Gerardo at 1312 on 01/24/2025 by JUVENTINO Critical Verbal Readback Performed Ordering Provider: AIDEN GERARDO Report Released Date/Time: Jan 24, 2025 11:14 AM Reporting Lab: [facility] [address] [facility] [address] Performing Lab: [facility] [address] [facility] [address] [facility] COMPREHE NSIVE METABOLI C PANEL POTASSIUM [MOLES/VOL UME] IN SERUM OR PLASMA 2.9 meq/L 3.5 - 5 01/24 LL Specimen Type: PLASMA Comment: No hemolysis noted. K Called to Dr Gerardo at 1312 on 01/24/2025 by JUVENTINO Critical Verbal Readback Performed Ordering Provider: AIDEN GERARDO Report Released Date/Time: Jan 24, 2025 11:14 AM Reporting Lab: [facility] [address] [facility] [address] Performing Lab: [facility] [address] [facility] [address] [facility] COMPREHE NSIVE METABOLI C PANEL CHLORIDE [MOLES/VOL UME] IN SERUM OR PLASMA 95 meq/L 98 - 107 01/24 L Specimen Type: PLASMA Comment: No hemolysis noted. Kaitlynn Called to Dr Gerardo at 1312 on 01/24/2025 by JUVENTINO Critical Verbal Readback Performed Ordering Provider: AIDEN GERARDO Report Released Date/Time: Jan 24, 2025 11:14 AM Reporting Lab: [facility] [address] [place] [phone] Performing Lab: [address] [phone] [place] [address] COMPREHE NSIVE METABOLI C PANEL CARBON DIOXIDE, TOTAL [MOLES/VOL UME] IN SERUM OR PLASMA 26 meq/L 22 - 31 01/24 Specimen Type: PLASMA Comment: No hemolysis noted. Kaitlynn Called to Dr Gerardo at 1312 on 01/24/2025 by JUVENTINO Critical Verbal Readback Performed Ordering Provider: AIDEN GERARDO Report Released Date/Time: Jan 24, 2025 11:14 AM Reporting Lab: [facility] [address] [place] [phone] Performing Lab: [address] [address] [place] [address] COMPREHE NSIVE METABOLI C PANEL CALCIUM [MASS/VOLU ME] IN SERUM OR PLASMA 9.6 mg/dL 8.4 - 10.4 01/24 Specimen Type: PLASMA Comment: No hemolysis noted. K Called to Dr Gerardo at 1312 on 01/24/2025 by JUVENTINO Critical Verbal Readback Performed Ordering Provider: AIDEN GERARDO Report Released Date/Time: Jan 24, 2025 11:14 AM Reporting Lab: [facility] [address] [place] [phone] Performing Lab: [facility] [address] [place] [phone] [facility] COMPREHE NSIVE METABOLI C PANEL PROTEIN [MASS/VOLU ME] IN SERUM OR PLASMA 8.0 g/dL 6 - 8.6 03/10 /2025 Specimen Type: PLASMA Comment: No hemolysis noted. K Called to Dr Gerardo at 1312 on 01/24/2025 by JUVENTINO Critical Verbal Readback Performed Ordering Provider: AIDEN GERARDO Report Released Date/Time: Jan 24, 2025 11:14 AM Reporting Lab: [place] [address] [facility] [address] Performing Lab: [place] [address] [facility] [phone] [facility] COMPREHE NSIVE METABOLI C PANEL ALBUMIN [MASS/VOLU ME] IN SERUM OR PLASMA 4.7 g/dL 3.4 - 5 01/24 Specimen Type: PLASMA Comment: No hemolysis noted. K Called to Dr Gerardo at 1312 on 01/24/2025 by JUVENTINO Critical Verbal Readback Performed Ordering Provider: AIDEN GERARDO Report Released Date/Time: Jan 24, 2025 11:14 AM Reporting Lab: [facility] [address] [facility] [address] Performing Lab: [place] [address] [facility] [phone] [place] [address] COMPREHE NSIVE METABOLI C PANEL BILIRUBIN. TOTAL [MASS/VOLU ME] IN SERUM OR PLASMA 0.4 mg/dL 0.2 - 1.2 01/24 Specimen Type: PLASMA Comment: No hemolysis noted. K Called to Dr Gerardo at 1312 on 01/24/2025 by JUVENTINO Critical Verbal Readback Performed Ordering Provider: AIDEN GERARDO Report Released Date/Time: Jan 24, 2025 11:14 AM Reporting Lab: [facility] [address] [place] [phone] Performing Lab: [address] [address] [facility] COMPREHE NSIVE METABOLI C PANEL ALKALINE PHOSPHATAS E [ENZYMATIC ACTIVITY/V OLUME] IN SERUM OR PLASMA 50 U/L 40 - 150 01/24 Specimen Type: PLASMA Comment: No hemolysis noted. K Called to Dr Gerardo at 1312 on 01/24/2025 by JUVENTINO Critical Verbal Readback Performed Ordering Provider: AIDEN GERARDO Report Released Date/Time: Jan 24, 2025 11:14 AM Reporting Lab: [facility] [address] [facility] [address] Performing Lab: [facility] [address] [facility] [address] [facility] COMPREHE NSIVE METABOLI C PANEL ASPARTATE AMINOTRANS FERASE [ENZYMATIC ACTIVITY/V OLUME] IN SERUM OR PLASMA 70 U/L 5 - 34 01/24 H Specimen Type: PLASMA Comment: No hemolysis noted. K Called to Dr Gerardo at 1312 on 01/24/2025 by JUVENTINO Critical Verbal Readback Performed Ordering Provider: AIDEN GERARDO Report Released Date/Time: Jan 24, 2025 11:14 AM Reporting Lab: [facility] [address] [facility] [address] Performing Lab: [place] [address] [facility] [address] [facility] COMPREHE NSIVE METABOLI C PANEL ALANINE AMINOTRANS FERASE [ENZYMATIC ACTIVITY/V OLUME] IN SERUM OR PLASMA 161 U/L 8 - 40 01/24 H Specimen Type: PLASMA Comment: No hemolysis noted. K Called to Dr Gerardo at 1312 on 01/24/2025 by JUVENTINO Critical Verbal Readback Performed Ordering Provider: AIDEN GERARDO Report Released Date/Time: Jan 24, 2025 11:14 AM Reporting Lab: [facility] [address] [facility] [address] Performing Lab: [place] [address] [facility] [address] [facility] COMPREHE NSIVE METABOLI C PANEL GLOMERULAR FILTRATION RATE/1.73 SQ M.PREDICTE D [VOLUME RATE/AREA] IN SERUM, PLASMA OR BLOOD BY CREATININE -BASED FORMULA (CKD-EPI 2020) 114.8 60 01/24 Specimen Type: PLASMA Comment: No hemolysis noted. Kaitlynn Called to Dr Gerardo at 1312 on 01/24/2025 by JUVENTINO Critical Verbal Readback Performed Ordering Provider: AIDEN GERARDO Report Released Date/Time: Jan 24, 2025 11:14 AM Reporting Lab: [facility] [address] [facility] [address] Performing Lab: [place] [address] [facility] [phone] [place] [address] LIPASE LIPASE [ENZYMATIC ACTIVITY/V OLUME] IN SERUM OR PLASMA 45 U/L 8 - 78 01/24 Specimen Type: PLASMA Comment: No hemolysis noted. Kaitlynn Called to Dr Gerardo at 1312 on 01/24/2025 by JUVENTINO Critical Verbal Readback Performed Ordering Provider: AIDEN GERARDO Report Released Date/Time: Jan 24, 2025 11:14 AM Reporting Lab: [place] [address] [facility] [address] Performing Lab: [place] [address] [facility] [address] [facility] METHADON E PANEL (STL) ETHANOL [MASS/VOLU ME] IN URINE Negative mg/dL 0 - 20 03/30 Specimen Type: URINE Comment: The cut-off value for this test was laboratory developed and its performance characteris tics confirmed by the [facility] laboratory thru method comparison with reference laboratory and medication chart review. The laboratory is regulated under CLIA as qualified to perform high-comple xity testing. This test is used for clinical purposes in conjunction with other laboratory tests. Ordering Provider: OSBALDO NGO Report Released Date/Time: March 30, 2024 11:53 AM Reporting Lab: [facility] [address] Performing Lab: [facility] [address] [facility] METHADON E PANEL (STL) AMPHETAMIN E [PRESENCE] IN URINE BY SCREEN METHOD Negative ng/mL 03/30 Specimen Type: URINE Comment: The cut-off value for this test was laboratory developed and its performance characteris tics confirmed by the [facility] laboratory thru method comparison with reference laboratory and medication chart review. The laboratory is regulated under CLIA as qualified to perform high-comple xity testing. This test is used for clinical purposes in conjunction with other laboratory tests. Ordering Provider: OSBALDO NGO Report Released Date/Time: March 30, 2024 11:53 AM Reporting Lab: [facility] [place] [address] Performing Lab: [facility] [address] [facility] METHADON E PANEL (STL) BENZOYLECG ONINE [PRESENCE] IN URINE Negative ng/mL 03/30 Specimen Type: URINE Comment: The cut-off value for this test was laboratory developed and its performance characteris tics confirmed by the [facility] laboratory thru method comparison with reference laboratory and medication chart review. The laboratory is regulated under CLIA as qualified to perform high-comple xity testing. This test is used for clinical purposes in conjunction with other laboratory tests. Ordering Provider: OSBALDO NGO Report Released Date/Time: March 30, 2024 11:53 AM Reporting Lab: [facility] [place] [address] Performing Lab: [facility] [address] [facility] METHADON E PANEL (STL) BENZODIAZE PINES [PRESENCE] IN URINE BY SCREEN METHOD Negative ng/mL 03/30 Specimen Type: URINE Comment: The cut-off value for this test was laboratory developed and its performance characteris tics confirmed by the [facility] laboratory thru method comparison with reference laboratory and medication chart review. The laboratory is regulated under CLIA as qualified to perform high-comple xity testing. This test is used for clinical purposes in conjunction with other laboratory tests. Ordering Provider: OSBALDO [employer] Report Released Date/Time: March 30, 2024 11:53 AM Reporting Lab: [facility] [place] [phone] Performing Lab: [facility] METHADON E PANEL (STL) CANNABINOI DS [PRESENCE] IN URINE BY SCREEN METHOD 94-POSng /mL 03/30 Specimen Type: URINE Comment: The cut-off value for this test was laboratory developed and its performance characteris tics confirmed by the [facility] laboratory thru method comparison with reference laboratory and medication chart review. The laboratory is regulated under CLIA as qualified to perform high-comple xity testing. This test is used for clinical purposes in conjunction with other laboratory tests. Ordering Provider: OSBALDO NGO Report Released Date/Time: March 30, 2024 11:53 AM Reporting Lab: [facility] [place] [address] Performing Lab: [facility] METHADON E PANEL (STL) METHADONE [PRESENCE] IN URINE Negative ng/mL 03/30 Specimen Type: URINE Comment: The cut-off value for this test was laboratory developed and its performance characteris tics confirmed by the [facility] laboratory thru method comparison with reference laboratory and medication chart review. The laboratory is regulated under CLIA as qualified to perform high-comple xity testing. This test is used for clinical purposes in conjunction with other laboratory tests. Ordering Provider: OSBALDO NGO Report Released Date/Time: March 30, 2024 11:53 AM Reporting Lab: [facility] [place] [address] Performing Lab: [facility] [address] METHADON E PANEL (STL) OPIATES [PRESENCE] IN URINE BY SCREEN METHOD Negative ng/mL 03/30 Specimen Type: URINE Comment: The cut-off value for this test was laboratory developed and its performance characteris tics confirmed by the [facility] laboratory thru method comparison with reference laboratory and medication chart review. The laboratory is regulated under CLIA as qualified to perform high-comple xity testing. This test is used for clinical purposes in conjunction with other laboratory tests. Ordering Provider: OSBALDO NGO Report Released Date/Time: March 30, 2024 11:53 AM Reporting Lab: [facility] [place] [address] Performing Lab: [facility] METHADON E PANEL (STL) CREATININE [MASS/VOLU ME] IN URINE 108.2 mg/dL 63.0 - 166.0 03/30 Specimen Type: URINE Comment: The cut-off value for this test was laboratory developed and its performance characteris tics confirmed by the [facility] laboratory thru method comparison with reference laboratory and medication chart review. The laboratory is regulated under CLIA as qualified to perform high-comple xity testing. This test is used for clinical purposes in conjunction with other laboratory tests. Ordering Provider: OSBALDO NGO Report Released Date/Time: March 30, 2024 11:53 AM Reporting Lab: [facility] [place] [address] Performing Lab: [facility] [facility] METHADON E PANEL (STL) OXYCODONE CUTOFF [MASS/VOLU ME] IN URINE FOR SCREEN METHOD Negative ng/mL 03/30 Specimen Type: URINE Comment: The cut-off value for this test was laboratory developed and its performance characteris tics confirmed by the [facility] laboratory thru method comparison with reference laboratory and medication chart review. The laboratory is regulated under CLIA as qualified to perform high-comple xity testing. This test is used for clinical purposes in conjunction with other laboratory tests. Ordering Provider: OSBALDO NGO Report Released Date/Time: March 30, 2024 11:53 AM Reporting Lab: [facility] [place] [address] Performing Lab: [facility] [id number] [place] [address] DIVISION METHADON E PANEL (STL) BUPRENORPH INE [PRESENCE] IN URINE Negative ng/mL 03/30 Specimen Type: URINE Comment: The cut-off value for this test was laboratory developed and its performance characteris tics confirmed by the [facility] laboratory thru method comparison with reference laboratory and medication chart review. The laboratory is regulated under CLIA as qualified to perform high-comple xity testing. This test is used for clinical purposes in conjunction with other laboratory tests. Ordering Provider: OSBALDO [employer] Report Released Date/Time: March 30, 2024 11:53 AM Reporting Lab: [facility] [place] [address] Performing Lab: [facility] METHADON E PANEL (STL) FENTANYL [PRESENCE] IN URINE Negative ng/mL 03/30 Specimen Type: URINE Comment: The cut-off value for this test was laboratory developed and its performance characteris tics confirmed by the [facility] laboratory thru method comparison with reference laboratory and medication chart review. The laboratory is regulated under CLIA as qualified to perform high-comple xity testing. This test is used for clinical purposes in conjunction with other laboratory tests. Ordering Provider: OSBALDO [employer] Report Released Date/Time: March 30, 2024 11:53 AM Reporting Lab: [facility] [place] [address] Performing Lab: [facility] CBC LEUKOCYTES [#/VOLUME] IN BLOOD BY AUTOMATED COUNT 7.1 10*3/uL 3.6 - 11.2 03/30 Specimen Type: BLOOD No comment entered. Ordering Provider: OSBALDO NGO Report Released Date/Time: March 30, 2024 11:54 AM Reporting Lab: [facility] [place] [address] Performing Lab: [facility] CBC ERYTHROCYT ES [#/VOLUME] IN BLOOD BY AUTOMATED COUNT 4.14 10*6/uL 4.10 - 5.70 03/30 Specimen Type: BLOOD No comment entered. Ordering Provider: OSBALDO NGO Report Released Date/Time: March 30, 2024 11:54 AM Reporting Lab: [facility] [place] [address] Performing Lab: [facility] CBC HEMOGLOBIN [MASS/VOLU ME] IN BLOOD 13.6 g/dL 13.1 - 16.8 03/30 Specimen Type: BLOOD No comment entered. Ordering Provider: OSBALDO NGO Report Released Date/Time: March 30, 2024 11:54 AM Reporting Lab: [facility] [place] [address] Performing Lab: [facility] CBC HEMATOCRIT [VOLUME FRACTION] OF BLOOD 38.0 38.2 - 48.4 03/30 L Specimen Type: BLOOD No comment entered. Ordering Provider: OSBALDO NOG Report Released Date/Time: March 30, 2024 11:54 AM Reporting Lab: [facility] [place] [address] Performing Lab: [facility] CBC MCV [ENTITIC VOLUME] BY AUTOMATED COUNT 91.8 fL 80.0 - 100.0 03/30 Specimen Type: BLOOD No comment entered. Ordering Provider: [employer] Report Released Date/Time: March 30, 2024 11:54 AM Reporting Lab: [facility] [place] [id number] Performing Lab: [facility] DIVISION CBC MCH [ENTITIC MASS] BY AUTOMATED COUNT 32.9 pg 27.0 - 34.0 03/30 Specimen Type: BLOOD No comment entered. Ordering Provider: [employer] Report Released Date/Time: March 30, 2024 11:54 AM Reporting Lab: [facility] [place] [address] Performing Lab: [facility] DIVISION CBC MCHC [MASS/VOLU ME] BY AUTOMATED COUNT 35.8 g/dL 33.0 - 36.0 03/30 Specimen Type: BLOOD No comment entered. Ordering Provider: [employer] Report Released Date/Time: March 30, 2024 11:54 AM Reporting Lab: [facility] [place] [address] Performing Lab: [facility] DIVISION CBC PLATELETS [#/VOLUME] IN BLOOD BY AUTOMATED COUNT 306 10*3/uL 150 - 400 03/30 Specimen Type: BLOOD No comment entered. Ordering Provider: [employer] Report Released Date/Time: March 30, 2024 11:54 AM Reporting Lab: [facility] [place] [address] Performing Lab: [facility] DIVISION CBC PLATELET MEAN VOLUME [ENTITIC VOLUME] IN BLOOD BY AUTOMATED COUNT 8.8 fL 7.5 - 11.2 03/30 Specimen Type: BLOOD No comment entered. Ordering Provider: [employer] Report Released Date/Time: March 30, 2024 11:54 AM Reporting Lab: [facility] [id number] Performing Lab: [facility] DIVISION CBC ERYTHROCYT E DISTRIBUTI ON WIDTH [RATIO] BY AUTOMATED COUNT 11.5 11.8 - 15.1 03/30 L Specimen Type: BLOOD No comment entered. Ordering Provider: [employer] Report Released Date/Time: March 30, 2024 11:54 AM Reporting Lab: [facility] [place] [address] Performing Lab: [facility] DIVISION CBC LYMPHOCYTE S/100 LEUKOCYTES IN BLOOD BY AUTOMATED COUNT 43 03/30 Specimen Type: BLOOD No comment entered. Ordering Provider: [employer] Report Released Date/Time: March 30, 2024 11:54 AM Reporting Lab: [facility] [place] [address] Performing Lab: [facility] DIVISION CBC MONOCYTES/ 100 LEUKOCYTES IN BLOOD BY AUTOMATED COUNT 9 03/30 Specimen Type: BLOOD No comment entered. Ordering Provider: [employer] Report Released Date/Time: March 30, 2024 11:54 AM Reporting Lab: [facility] [place] [address] Performing Lab: [facility] DIVISION CBC NEUTROPHIL S/100 LEUKOCYTES IN BLOOD BY AUTOMATED COUNT 44 03/30 Specimen Type: BLOOD No comment entered. Ordering Provider: [employer] Report Released Date/Time: March 30, 2024 11:54 AM Reporting Lab: [facility] [place] [address] Performing Lab: [facility] [id number] DIVISION CBC EOSINOPHIL S/100 LEUKOCYTES IN BLOOD BY AUTOMATED COUNT 4 03/30 Specimen Type: BLOOD No comment entered. Ordering Provider: [employer] Report Released Date/Time: March 30, 2024 11:54 AM Reporting Lab: [facility] [place] [address] Performing Lab: [facility] DIVISION CBC BASOPHILS/ 100 LEUKOCYTES IN BLOOD BY AUTOMATED COUNT 1 03/30 Specimen Type: BLOOD No comment entered. Ordering Provider: [employer] Report Released Date/Time: March 30, 2024 11:54 AM Reporting Lab: [facility] [place] [address] Performing Lab: [facility] CBC LYMPHOCYTE S [#/VOLUME] IN BLOOD BY AUTOMATED COUNT 3.01 10*3/uL 0.77 - 4.50 03/30 Specimen Type: BLOOD No comment entered. Ordering Provider: [employer] Report Released Date/Time: March 30, 2024 11:54 AM Reporting Lab: [facility] [place] [address] Performing Lab: [facility] DIVISION CBC MONOCYTES [#/VOLUME] IN BLOOD BY AUTOMATED COUNT 0.63 10*3/uL 0.19 - 0.80 03/30 Specimen Type: BLOOD No comment entered. Ordering Provider: [employer] Report Released Date/Time: March 30, 2024 11:54 AM Reporting Lab: [facility] [place] [address] Performing Lab: [facility] DIVISION CBC NEUTROPHIL S [#/VOLUME] IN BLOOD BY AUTOMATED COUNT 3.08 10*3/uL 2.10 - 8.00 03/30 Specimen Type: BLOOD No comment entered. Ordering Provider: [employer] Report Released Date/Time: March 30, 2024 11:54 AM Reporting Lab: [facility] [place] [address] Performing Lab: [facility] DIVISION CBC EOSINOPHIL S [#/VOLUME] IN BLOOD BY AUTOMATED COUNT 0.26 10*3/uL 0.00 - 0.60 03/30 Specimen Type: BLOOD No comment entered. Ordering Provider: [employer] Report Released Date/Time: March 30, 2024 11:54 AM Reporting Lab: [facility] [place] [address] Performing Lab: [facility] DIVISION CBC BASOPHILS [#/VOLUME] IN BLOOD BY AUTOMATED COUNT 0.07 10*3/uL 0.00 - 0.20 03/30 Specimen Type: BLOOD No comment entered. Ordering Provider: [employer] Report Released Date/Time: March 30, 2024 11:54 AM Reporting Lab: [facility] [place] [address] Performing Lab: [facility] DIVISION COMPREHE NSIVE METABOLI C PANEL CREATININE [MASS/VOLU ME] IN SERUM OR PLASMA 0.78 mg/dL 0.70 - 1.30 03/30 Specimen Type: PLASMA Comment: No hemolysis noted. Ordering Provider: [employer] Report Released Date/Time: March 30, 2024 11:54 AM Reporting Lab: [facility] [place] [address] Performing Lab: [facility] DIVISION COMPREHE NSIVE METABOLI C PANEL UREA NITROGEN [MASS/VOLU ME] IN SERUM OR PLASMA 7.5 mg/dL 9.0 - 25.0 03/30 L Specimen Type: PLASMA Comment: No hemolysis noted. Ordering Provider: [employer] Report Released Date/Time: March 30, 2024 11:54 AM Reporting Lab: [facility] [place] [address] Performing Lab: [facility] DIVISION COMPREHE NSIVE METABOLI C PANEL GLUCOSE [MASS/VOLU ME] IN SERUM OR PLASMA 104 mg/dL 72 - 99 03/30 H Specimen Type: PLASMA Comment: No hemolysis noted. Ordering Provider: [employer] Report Released Date/Time: March 30, 2024 11:54 AM Reporting Lab: [facility] [place] [address] Performing Lab: [facility] DIVISION COMPREHE NSIVE METABOLI C PANEL SODIUM [MOLES/VOL UME] IN SERUM OR PLASMA 139 meq/L 136 - 145 03/30 Specimen Type: PLASMA Comment: No hemolysis noted. Ordering Provider: [employer] Report Released Date/Time: March 30, 2024 11:54 AM Reporting Lab: [facility] [place] [address] Performing Lab: [facility] DIVISION COMPREHE NSIVE METABOLI C PANEL POTASSIUM [MOLES/VOL UME] IN SERUM OR PLASMA 3.8 meq/L 3.5 - 5.0 03/30 Specimen Type: PLASMA Comment: No hemolysis noted. Ordering Provider: [employer] Report Released Date/Time: March 30, 2024 11:54 AM Reporting Lab: [facility] [place] [address] Performing Lab: [facility] DIVISION COMPREHE NSIVE METABOLI C PANEL CHLORIDE [MOLES/VOL UME] IN SERUM OR PLASMA 103 meq/L 98 - 107 03/30 Specimen Type: PLASMA Comment: No hemolysis noted. Ordering Provider: [employer] Report Released Date/Time: March 30, 2024 11:54 AM Reporting Lab: [facility] [place] [address] Performing Lab: [facility] DIVISION COMPREHE NSIVE METABOLI C PANEL CARBON DIOXIDE, TOTAL [MOLES/VOL UME] IN SERUM OR PLASMA 27 meq/L 22 - 31 03/30 Specimen Type: PLASMA Comment: No hemolysis noted. Ordering Provider: [employer] Report Released Date/Time: March 30, 2024 11:54 AM Reporting Lab: [facility] [place] [address] Performing Lab: [facility] DIVISION COMPREHE NSIVE METABOLI C PANEL CALCIUM [MASS/VOLU ME] IN SERUM OR PLASMA 9.5 mg/dL 8.4 - 10.4 03/30 Specimen Type: PLASMA Comment: No hemolysis noted. Ordering Provider: [employer] Report Released Date/Time: March 30, 2024 11:54 AM Reporting Lab: [facility] [place] [address] Performing Lab: [facility] [place] COMPREHE NSIVE METABOLI C PANEL PROTEIN [MASS/VOLU ME] IN SERUM OR PLASMA 6.9 g/dL 6.0 - 8.6 03/30 Specimen Type: PLASMA Comment: No hemolysis noted. Ordering Provider: [employer] Report Released Date/Time: March 30, 2024 11:54 AM Reporting Lab: [facility] [place] [address] Performing Lab: [facility] DIVISION COMPREHE NSIVE METABOLI C PANEL ALBUMIN [MASS/VOLU ME] IN SERUM OR PLASMA 4.3 g/dL 3.4 - 5.0 03/30 Specimen Type: PLASMA Comment: No hemolysis noted. Ordering Provider: [employer] Report Released Date/Time: March 30, 2024 11:54 AM Reporting Lab: [facility] [place] [address] Performing Lab: [facility] DIVISION COMPREHE NSIVE METABOLI C PANEL BILIRUBIN. TOTAL [MASS/VOLU ME] IN SERUM OR PLASMA 0.6 mg/dL 0.2 - 1.2 03/30 Specimen Type: PLASMA Comment: No hemolysis noted. Ordering Provider: [employer] Report Released Date/Time: March 30, 2024 11:54 AM Reporting Lab: [facility] [place] [address] Performing Lab: [facility] DIVISION COMPREHE NSIVE METABOLI C PANEL ALKALINE PHOSPHATAS E [ENZYMATIC ACTIVITY/V OLUME] IN SERUM OR PLASMA 57 U/L 40 - 150 03/30 Specimen Type: PLASMA Comment: No hemolysis noted. Ordering Provider: [employer] Report Released Date/Time: March 30, 2024 11:54 AM Reporting Lab: [facility] [place] [address] Performing Lab: [facility] DIVISION COMPREHE NSIVE METABOLI C PANEL ASPARTATE AMINOTRANS FERASE [ENZYMATIC ACTIVITY/V OLUME] IN SERUM OR PLASMA 31 U/L 5 - 34 03/30 Specimen Type: PLASMA Comment: No hemolysis noted. Ordering Provider: [employer] Report Released Date/Time: March 30, 2024 11:54 AM Reporting Lab: [facility] [place] [address] Performing Lab: [facility] DIVISION COMPREHE NSIVE METABOLI C PANEL ALANINE AMINOTRANS FERASE [ENZYMATIC ACTIVITY/V OLUME] IN SERUM OR PLASMA 24 U/L 8 - 40 03/30 Specimen Type: PLASMA Comment: No hemolysis noted. Ordering Provider: [employer] Report Released Date/Time: March 30, 2024 11:54 AM Reporting Lab: [facility] [place] [address] Performing Lab: [facility] DIVISION COMPREHE NSIVE METABOLI C PANEL GLOMERULAR FILTRATION RATE/1.73 SQ M.PREDICTE D [VOLUME RATE/AREA] IN SERUM, PLASMA OR BLOOD BY CREATININE -BASED FORMULA (CKD-EPI 2020) 114.19 60 03/30 Specimen Type: PLASMA Comment: No hemolysis noted. Ordering Provider: [employer] Report Released Date/Time: March 30, 2024 11:54 AM Reporting Lab: [facility] [place] [address] Performing Lab: [facility] DIVISION HGA1C HEMOGLOBIN A1C/HEMOGL OBIN.TOTAL IN BLOOD 4.8 4.0 - 6.0 03/30 Specimen Type: BLOOD No comment entered. Ordering Provider: [employer] Report Released Date/Time: March 30, 2024 11:54 AM Reporting Lab: [facility] [id number] Performing Lab: [facility] [id number] [place] [address] TSH (MA-PB) THYROTROPI N [UNITS/VOL UME] IN SERUM OR PLASMA 1.066 u[IU]/mL 0.470 - 5.000 03/30 Specimen Type: SERUM No comment entered. Ordering Provider: [employer] Report Released Date/Time: March 30, 2024 11:54 AM Reporting Lab: [facility] [place] [address] Performing Lab: [facility] Vital Signs Combined list of inpatient and outpatient Vital Signs from Department of Defense and Veterans Affairs, ranging from 12 months to all on record, depending upon the facility. Vital Sign Value Date Comments Source SYSTOLIC BLOOD PRESSURE 129 05/24/2025 10:47:37 [facility] DIASTOLIC BLOOD PRESSURE 88 05/24/2025 10:47:37 [facility] PULSE OXIMETRY 100 % 05/24/2025 10:47:37 [facility] WEIGHT 149.8 05/24/2025 10:47:37 [facility] BMI 21 kg/m2 05/24/2025 10:47:37 [facility] PAIN 1 05/24/2025 10:47:37 [facility] TEMPERATURE 97.6 05/24/2025 10:47:37 [facility] PULSE 107 05/24/2025 10:47:37 [facility] RESPIRATION 16 05/24/2025 10:47:37 [facility] SYSTOLIC BLOOD PRESSURE 130 05/19/2025 11:55:00 [facility] DIASTOLIC BLOOD PRESSURE 94 05/19/2025 11:55:00 [facility] PULSE OXIMETRY 100 % 05/19/2025 11:55:00 [facility] WEIGHT 143.9 05/19/2025 11:55:00 [facility] BMI 20 kg/m2 05/19/2025 11:55:00 [facility] PAIN 5 05/19/2025 11:55:00 [facility] HEIGHT 71 05/19/2025 11:55:00 [facility] TEMPERATURE 98.3 05/19/2025 11:55:00 [facility] PULSE 92 05/19/2025 11:55:00 [facility] RESPIRATION 14 05/19/2025 11:55:00 [facility] SYSTOLIC BLOOD PRESSURE 120 01/24/2025 10:41:48 [facility] DIASTOLIC BLOOD PRESSURE 82 01/24/2025 10:41:48 [facility] PULSE OXIMETRY 98 01/24/2025 10:41:48 [facility] WEIGHT 149 01/24/2025 10:41:48 [facility] BMI 21 kg/m2 01/24/2025 10:41:48 [facility] PAIN 10 01/24/2025 10:41:48 [facility] TEMPERATURE 97.7 01/24/2025 10:41:48 [facility] PULSE 97 01/24/2025 10:41:48 [facility] RESPIRATION 18 01/24/2025 10:41:48 [facility] SYSTOLIC BLOOD PRESSURE 148 01/11/2025 10:16:25 [facility] DIASTOLIC BLOOD PRESSURE 87 01/11/2025 10:16:25 [facility] PULSE OXIMETRY 100 01/11/2025 10:16:25 [facility] WEIGHT 156.4 01/11/2025 10:16:25 [facility] BMI 22 kg/m2 01/11/2025 10:16:25 [facility] PAIN 5 01/11/2025 10:16:25 [facility] HEIGHT 71 01/11/2025 10:16:25 [facility] TEMPERATURE 98.1 01/11/2025 10:16:25 [facility] PULSE 100 01/11/2025 10:16:25 [facility] RESPIRATION 24 01/11/2025 10:16:25 [facility] SYSTOLIC BLOOD PRESSURE 125 09/28/2024 11:47:45 [facility] DIASTOLIC BLOOD PRESSURE 88 09/28/2024 11:47:45 [facility] PULSE OXIMETRY 100 09/28/2024 11:47:45 [facility] WEIGHT 163 09/28/2024 11:47:45 [facility] BMI 23 kg/m2 09/28/2024 11:47:45 [facility] PAIN 6 09/28/2024 11:47:45 [facility] HEIGHT 71 09/28/2024 11:47:45 [facility] TEMPERATURE 97.9 09/28/2024 11:47:45 [facility] PULSE 122 09/28/2024 11:47:45 [facility] RESPIRATION 16 09/28/2024 11:47:45 [facility] Encounters Combined list of: 1) Encounters from Department of Veterans Affairs facilities going backup to the last 18 months, not all VA inpatient encounters are included; 2) Encounters from the Department of Defense facilities going backup to 280 months. Location Location Details Encounter Type Encounter Number Reason For Visit Attending Provider ADM Date DC Date Status Disposition Source [place]) OUTPATIENT [id number] ARCHES AND KNEE PAIN/CO LD DACIA MOYA 12/06 Released with Work/Duty Limitations [place] OUTPATIENT [id number] X-RAY RESULTS DACIA MOYA 12/07 Released with Work/Duty Limitations [place] OUTPATIENT [id number] back pain/bl ENRIQUE Garcia 01/17 Released with Work/Duty Limitations [place] OUTPATIENT [id number] 01/02 Released w/o Limitations [facility] OUTPATIENT [id number] 01/31 Released w/o Limitations [facility] OUTPATIENT [id number] 05/17 Released with Work/Duty Limitations [facility] OUTPATIENT [id number] 05/21 Released w/o Limitations [facility] OUTPATIENT [id number] 06/05 Released w/o Limitations [facility] OUTPATIENT [id number] 06/08 Released w/o Limitations [facility] [place] [facility] [place] [id number] INPROCE PORTIA MENG 10/31 Released w/o Limitations [facility] [employer] [place] [place] john Examina tion) [place] [id number] W/I ROLANDA STRAUSS 11/20 Released w/o Limitations [facility] [employer] [place], [place]([employer] [facility] ) [place] [facility], [place]([facility] OUTPATIENT [id number] ISABEL Verde 05/07 Released w/o Limitations [facility] [employer] [facility] [employer] [place] OUTPATIENT [id number] knee pain CHAI HARRELL 03/14 Released w/o Limitations [facility] [employer] [facility] [facility] [employer] [place] OUTPATIENT [id number] L knee pain CHAI HARRELL 03/21 Released w/o Limitations [facility] [employer]) [facility] [employer] [place] Physical Therapy) OUTPATIENT [id number] visit for: adminis trative purpose SOFIE POSEY 04/12 Released w/o Limitations [facility] [employer] Physica l Therapy ) [facility] [employer] [place] OUTPATIENT [id number] infecti on near groin area CHAI HARRELL 04/14 Released w/o Limitations [facility], [employer] [facility] [employer] [place] OUTPATIENT [id number] Poss. Cyst A Co CHAI HARRELL 04/17 Released w/o Limitations [facility] [employer] [facility] [employer] [place] TELE CONSULT [id number] MED FILL CHAI HARRELL 07/14 [facility] [employer] [facility]) [facility] [employer] [place] TELE CONSULT [id number] Needs medicat ion change SANCHO DEUTSCH 08/07 [facility] [employer] [facility]) [facility] EMERGENCY DEPT VISIT LOW [facility] [id number] Diagnos is: ICD-10- CM E87.6 Hypokal emia LINO ZAMORA ERT C 03/15 [facility] Outpatient Encounter [id number] 03/15 [facility] Outpatient Encounter [id number] LINO ZAMORA ERT C 03/15 [facility] Outpatient Encounter [id number] 03/17 [facility] O/P EST MOD 30 MIN [id number] Diagnos is: ICD-10- CM R52 Pain, 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 KODWANI, CHAVEZ 03/30 [facility] NRV CNDJ TEST 9-10 STUDIES [id number] Diagnos is: ICD-10- CM G56.03 Carpal tunnel syndrom e, bilater al upper limbs MARIAMA,JULISA 04/19 [facility] Outpatient Encounter [id number] 04/19 [facility] Outpatient Encounter [id number] Bonifacio QUEZADA 04/20 [facility] PSYTX W PT 45 MINUTES [id number] Diagnos is: ICD-10- CM F43.11 Post-tr aumatic stress disorde r, acute ABICHANDAN IZACHARY 04/27 [facility] Outpatient Encounter [id number] 04/27 [facility] OFFICE O/P EST MOD 30 MIN [id number] Diagnos is: ICD-10- CM R52 Pain, 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 KODWANI, CHAVEZ 04/28 [facility] Outpatient Encounter [id number] 04/28 [facility] Outpatient Encounter [id number] 04/28 [facility] Outpatient Encounter [id number] Diagnos is: ICD-10- CM R52 Pain, 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 KODWANI, CHAVEZ 05/14 [facility] OFF/OP CNSLTJ NEW/EST LOW 30 [id number] Diagnos is: ICD-10- CM G56.03 Carpal tunnel syndrom e, bilater al upper limbs ROSELEINOR Y A 05/31 [facility] OT EVAL MOD COMPLEX 45 MIN [id number] Diagnos is: ICD-10- CM G56.03 Carpal tunnel syndrom e, bilater al upper limbs PATRICCristóbalTOÑO HN K 05/31 [facility] Outpatient Encounter [id number] 07/03 [facility] OFFICE O/P EST HI 40 MIN [id number] Diagnos is: ICD-10- CM Z72.0 Tobacco use MARIANO OSULLIVAN 07/05 [facility] Outpatient Encounter [id number] 07/05 [facility] HC PRO PHONE CALL 11-20 MIN [id number] Diagnos is: ICD-10- CM F10.90 Alcohol use, 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, uncompl icated SHANKAR OWEN 07/06 [facility] Outpatient Encounter [id number] SHANKAR OWEN 07/06 [facility] ALCOHOL AND/OR DRUG ASSESS [id number] Diagnos is: ICD-10- CM F10.90 Alcohol use, 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, uncompl icated DAXAANTHONY JORGE 07/13 [facility] OFF/OP EST MAY X REQ PHY/QHP [id number] Diagnos is: ICD-10- CM G56.03 Carpal tunnel syndrom e, bilater al upper limbs KWADWO ROSS 08/03 [facility] Outpatient Encounter [id number] LAURA CANDELARIA A 08/05 [facility] OFFICE O/P EST MOD 30 MIN 94980-2.65 [id number] Diagnos is: ICD-10- CM F32.89 Other specifi ed depress migdalia episode s MARIANO OSULLIVAN Ce 08/06 [facility]P EST MOD 30 MIN 40976-0.65 [id number] Diagnos is: ICD-10- CM R03.0 Elevate d blood-p ressure reading , w/o diagnos is of htn SHAHEEN NGO CHAVEZ 08/18 [facility] Outpatient Encounter [id number] 08/18 [facility] O/P EST MOD 30 MIN 53686-5.65 [id number] Diagnos is: ICD-10- CM F32.89 Other specifi ed depress migdalia episode s MARIANO OSULLIVAN 09/06 [facility] OFF/OP CNSLTJ NEW/EST LOW 30 58138-3.65 [id number] Diagnos is: ICD-10- CM G56.03 Carpal tunnel syndrom e, bilater al upper limbs VIKTORIYA BALTAZAR ESH 09/28 [facility] Outpatient Encounter [id number] 09/28 [facility] Outpatient Encounter [id number] [id number] Diagnos is: ICD-10- CM Z01.810 Encount er for preproc edural cardiov ascular examina tion ROSEHECe THER 10/03 [facility] Outpatient Encounter [id number] [id number] Diagnos is: ICD-10- CM Z04.89 Encount er for examina tion and observa tion for oth reasons Candice BRAGA 10/09 [facility] HC PRO PHONE CALL 5-10 MIN [id number] [id number] Diagnos is: ICD-10- CM G56.01 Carpal tunnel syndrom e, right upper limb RODRIGUEZ,VE MARIBEL 10/22 [facility] Outpatient Encounter [id number] 1 10/29 [facility] Outpatient Encounter [id number] [id number] SHAHEEN NGO CHAVEZ 11/07 [facility] OFFICE O/P EST MOD 30 MIN [id number] [id number] Diagnos is: ICD-10- CM 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, subs STEPHENITERSMARIANO LUTZ A 11/23 [facility] SYNCH AUDIO-ONLY EST SF 10 [id number] [id number] Diagnos is: ICD-10- CM Z02.71 Encount er for disabil ity magii Sharron Barrett B 11/23 [facility] O/P EST MOD 30 MIN [id number] [id number] Diagnos is: ICD-10- CM K21.9 Gastro- esophag eal reflux disease without esophag itis SHAHEEN NGO CHAVEZ 11/26 [facility] Outpatient Encounter [id number] [id number] 11/26 [facility] Outpatient Encounter [id number] [id number] 12/15 [facility] Outpatient Encounter [id number] [id number] 1 12/20 [facility] Outpatient Encounter [id number] [id number] 12/21 [facility] OFF[facility] O/P EST MOD 30 MIN [id number] [id number] Diagnos is: ICD-10- CM G56.01 Carpal tunnel syndrom e, right upper limb VIKTORIYA BALTAZAR ESH 01/11 [facility] OFF/OP CNSLTJ NEW/EST MOD 40 [id number] [id number] 4 Diagnos is: ICD-10- CM R10.13 Epigast chris pain AIDEN MISTRY 01/24 [facility] Outpatient Encounter [id number] [id number] LINO ZAMORA 01/24 [facility] EMERGENCY DEPT VISIT MOD MDM [id number] [id number] 1 Diagnos is: ICD-10- CM E87.6 Hypokal emia LINO ZAMORA 01/24 [facility] Outpatient Encounter [id number] [id number] 01/24 [facility] Outpatient Encounter [id number] [id number] LINO ZAMORA 01/24 [facility] PH1 ASSMT&MGMT NQHP - 10203-1.65 [id number] Diagnos is: ICD-10- CM G56.01 Carpal tunnel syndrom e, right upper limb NIKUNJ RODRIGUEZ 01/25 [facility] O/P EST MOD 30 MIN [id number] [id number] Diagnos is: ICD-10- CM F43.10 Post-tr aumatic stress disorde r, 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 STEPHENADELFO JoseMARIANO A 02/21 [facility] Outpatient Encounter [id number] [id number] Diagnos is: ICD-10- CM F43.11 Post-tr aumatic stress disorde r, acute OSBALDO,AKILAH R 02/21 [facility] Outpatient Encounter [id number] [id number] 03/07 [facility] Outpatient Encounter [id number] [id number] GLORIA CONRAD 03/08 [facility] O/P EST MOD 30 MIN [id number] [id number] Diagnos is: ICD-10- CM K21.9 Gastro- esophag eal reflux disease without esophag itis JENI, CHAVEZ 03/08 [facility] Outpatient Encounter [id number] [id number] 04/05 [facility] Outpatient Encounter [id number] [id number] 04/06 [facility] OFF[facility] O/P EST LOW 20 MIN [id number] [id number] Diagnos is: ICD-10- CM Z01.818 Encount er for other preproc edural examina tion RIMMA-CORNELIA WEINBERG 04/06 [facility] PT EDUCATION NOC INDIVID [id number] [id number] Diagnos is: ICD-10- CM R07.0 Pain in throat ELWING,NIDHI L E 04/06 [facility] Outpatient Encounter [id number] [id number] JERONIMO BENITO 04/06 [facility] Outpatient Encounter [id number] [id number] SALVATORE JOEL 04/08 [facility] PH1 ASSMT&MGMT NQHP 11-20 [id number] [id number] Diagnos is: ICD-10- CM G56.01 Carpal tunnel syndrom e, right upper limb RODRIGUEZ,VE MARIBEL 04/19 [facility] Outpatient Encounter [id number] [id number] Diagnos is: ICD-10- CM 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, subs JACE APARICIO ES 05/08 [facility] OFF[facility] O/P EST HI 40 MIN [id number] [id number] Diagnos is: ICD-10- CM G56.02 Carpal tunnel syndrom e, left upper limb KASVIKTORIYA BROUSSARD ESH 05/10 [facility] O/P EST MOD 30 MIN [id number] [id number] Diagnos is: ICD-10- CM K21.9 Gastro- esophag eal reflux disease without esophag itis KODWANI, CHAVEZ 05/11 [facility] PH1 ASSMT&MGMT NQHP 5-10 [id number] [id number] Diagnos is: ICD-10- CM G56.02 Carpal tunnel syndrom e, left upper limb STEPHEN FAYE ELEANOR D 05/18 [facility] OFFICE O/P EST LOW 20 MIN [id number] [id number] Diagnos is: ICD-10- CM G56.02 Carpal tunnel syndrom e, left upper limb VIKTORIYA BALTAZAR [facility] 05/19 [facility] MEASURE BLOOD OXYGEN LEVEL [id number] [id number] Diagnos is: ICD-10- CM G56.02 Carpal tunnel syndrom e, left upper limb SANDHYA TAVARES 05/19 [facility] OFF[facility] O/P EST LOW 20 MIN 60859-7.65 [id number] Diagnos is: ICD-10- CM Z01.818 Encount er for other preproc edural examina JOSE R Lutz 05/19 [facility] Outpatient Encounter [id number] [id number] VIKTORIYA BALTAZAR [facility] 05/19 [facility] CARPAL TUNNEL SURGERY [id number] [id number] Ce CORDOVA 05/19 [facility] Outpatient Encounter [id number] [id number] IAIN HICKS 05/19 [facility] Outpatient Encounter [id number] [id number] Karissa RAMOS 05/19 [facility] Outpatient Encounter [id number] [id number] CINDY NORIEGA 05/19 [facility] Outpatient Encounter [id number] [id number] CHERYL MURO A 05/23 [facility] Outpatient Encounter [id number] [id number] 05/23 [facility] POSTOP FOLLOW-UP VISIT 24446-9.32 [id number] Diagnos is: ICD-10- CM G56.00 Carpal tunnel syndrom e, 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 upper limb GIOVANNYVIKTORIYA BGEUM 05/24 [facility] Outpatient Encounter [id number] [id number] Diagnos is: ICD-10- CM E87.6 Hypokal emia MENA PINA S 05/25 [facility] Outpatient Encounter [id number] [id number] 06/08 [facility] PH1 ASSMT&MGMT NQHP 11-20 [id number] [id number] Diagnos is: ICD-10- CM G56.02 Carpal tunnel syndrom e, left upper limb NIKUNJ RODRIGUEZ 06/13 [facility] Procedures Combined list of: 1) Procedures from [...] INTRANASAL USE 4 DoD PHYS/OTH QUALIFIED HEALTH DIRECTOR STAGE QUALIFIED,EDUCATIO N,TRAIN,LICENSURE/ REGULATION (WHEN APPLICABLE) EDUC SER RENDERED TO PATS IN A GRP SETTING (EG,,OBESI TY,OR DIABETIC INSTRUCT) 4 [facility] HEPATITIS B VACCINE (HEPB), ADULT DOSAGE, 3 DOSE SCHEDULE, FOR INTRAMUSCULAR USE 5 [facility] INFLUENZA VIRUS VACCINE, TRIVALENT (IIV3), SPLIT VIRUS, 0.5 ML DOSAGE, FOR INTRAMUSCULAR USE 5 [facility] INDIVIDUAL PSYCHOTHERAPY, INSIGHT ORIENTED, BEHAVIOR MODIFYING AND/OR SUPPORTIVE, IN AN OFFICE OR OUTPATIENT FACILITY, APPROXIMATELY 20 TO 30 MINUTES HPVB-TR-RIHX WITH THE PATIENT 9 [facility] INDIVIDUAL PSYCHOTHERAPY, INSIGHT ORIENTED, BEHAVIOR MODIFYING AND/OR SUPPORTIVE, IN AN OFFICE OR OUTPATIENT FACILITY, APPROXIMATELY 45 TO 50 MINUTES VRMT-ZE-KTFT WITH THE PATIENT 9 [facility] INFLUENZA VIRUS VACCINE, TRIVALENT, LIVE (LAIV3), FOR INTRANASAL USE 9 [facility] INDIVIDUAL PSYCHOTHERAPY, INSIGHT ORIENTED, BEHAVIOR MODIFYING AND/OR SUPPORTIVE, IN AN OFFICE OR OUTPATIENT FACILITY, APPROXIMATELY 45 TO 50 MINUTES MNKW-BR-QCBV WITH THE PATIENT 9 [facility] INDIVIDUAL PSYCHOTHERAPY, INSIGHT ORIENTED, BEHAVIOR MODIFYING AND/OR SUPPORTIVE, IN AN OFFICE OR OUTPATIENT FACILITY, APPROXIMATELY 20 TO 30 MINUTES CSZC-AC-KNKC WITH THE PATIENT 9 [facility] THERAPEUTIC, PROPHYLACTIC, OR DIAGNOSTIC INJECTION (SPECIFY SUBSTANCE OR DRUG); SUBCUTANEOUS OR INTRAMUSCULAR 9 [facility] SELF-CARE/HOME MANAGMENT TRAIN (EG,ACT OF DAILY LIVING (ADL) &COMPENSAT TRAIN,MEAL PREPARATION,SAFETY PROCS,AND INSTRUCT IN USE OF ASST TECHNOLOGY DEV/ADPT EQUIP) DIR ONE-ON-ONE CONT,EA [address] [facility] INFLUENZA VIRUS VACCINE, TRIVALENT, LIVE (LAIV3), FOR INTRANASAL USE 7 [facility] TYPHOID VACCINE, ACETONE-KILLED, DRIED (AKD), FOR SUBCUTANEOUS USE (U.S. ) 7 [facility] ANALYSIS OF CLINICAL DATA STORED IN COMPUTERS (EG, ECGS, BLOOD PRESSURES, HEMATOLOGIC DATA) 7 [facility] SCREENING TEST OF VISUAL ACUITY, QUANTITATIVE, BILATERAL 7 DoD PREPARATION OF REPORT OF PATIENT'S PSYCHIATRIC STATUS, HISTORY, TREATMENT, OR PROGRESS (OTHER THAN FOR LEGAL OR CONSULTATIVE PURPOSES) FOR OTHER INDIVIDUALS, AGENCIES, OR INSURANCE CARRIERS 7 [facility] PSYCHOLOG TESTING (ASSESS EMOTION,INTELLECT ABILITIES,PERSONAL ITY & PSYCHOPATH,EG,MMPI ,R[place]ACH,[place])/H R PSYCHOLOGIST/PHYS TIME,BOTH [id number] ADMIN TEST TO PAT & INTERP TEST RESULT & PREP RPT 7 [facility] HEPATITIS A AND HEPATITIS B VACCINE (HEPA-HEPB), ADULT DOSAGE, FOR INTRAMUSCULAR USE 7 [facility] ANALYSIS OF CLINICAL DATA STORED IN COMPUTERS (EG, ECGS, BLOOD PRESSURES, HEMATOLOGIC DATA) 7 [facility] Psychiatric Therapy Individual Approximately 20-30 Minutes Psychiatric Therapy Individual Approximately 20-30 Minutes [id number] [facility] Social Work Individual Outpatient Counseling 45-50 Minutes Social Work Individual Outpatient Counseling 45-50 Minutes [address] [facility] Social Work Individual Outpatient Counseling 45-50 Minutes Social Work Individual Outpatient Counseling 45-50 Minutes [id number] [facility] Social Work Individual Outpatient Counseling 20-30 Minutes Social Work Individual Outpatient Counseling 20-30 Minutes [address] [facility] Supervised Injection Intramuscular Antibiotic Supervised Injection Intramuscular Antibiotic [address] [facility] Phys Therapy Education Self Care Training - Per 15 Minutes Phys Therapy Education Self Care Training - Per 15 Minutes [address] [facility] Physical Medicine Physical Therapy Evaluation Physical Medicine Physical Therapy Evaluation [address] [facility] Screening Test Of Visual Acuity, Quantitative, Bilateral Screening Test Of Visual Acuity, Quantitative, Bilateral [address] [facility] Psychiatric Therapy Preparation of Psychiatric Status Report Psychiatric Therapy Preparation of Psychiatric Status Report [id number] [facility] Psychiatric Evaluation Comprehensive Examination Psychiatric Evaluation Comprehensive Examination [address] [facility] Psychologic Testing And Report Administered By Physician Psychologic Testing And Report Administered By Physician [id number] [facility] Audiometry Group Testing Audiometry Group Testing 96236 7 ROLANDA STRAUSS Threshold Audiogram (Pure Tone) Threshold Audiogram (Pure Tone) [address].-Supervised Group Educational Services [address] Services Analysis Of Computerized Data Special Dr. 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 Social History Type Response Date Comment [facility] e Tobacco smoking status NHIS VA-TOBACCO FORMER USER 08/05/2024 [facility] History of tobacco use OK-TOBACCO QUIT 5 TO < 15 YRS 08/05/2024 [facility] History of tobacco use VA-TOBACCO USER SOME DAYS 06/05/2023 [facility] History of tobacco use ORYX ADMIT TOBACCO SCREEN YES 05/07/2023 [facility] History of tobacco use VA-TOBACCO FORMER USER 04/16/2022 [facility] History of tobacco use VA-TOBACCO USER EVERY DAY 11/14/2020 [facility] History of tobacco use VA-TOBACCO FORMER USER 02/08/2019 [facility] History of tobacco use TOBACCO USER OFFERED MEDS 10/17/2017 [facility] History of tobacco use CURRENT TOBACCO USER 07/02/2017 [facility] Sharron [facility] History of tobacco use QUIT TOBACCO >12 MO and <7 YRS AGO 02/19/2016 [facility] History of tobacco use CURRENT TOBACCO USER 04/14/2015 [facility] History of tobacco use CURRENT TOBACCO USER 08/25/2014 [facility] History of tobacco use QUIT TOBACCO >7 YEARS AGO 10/27/2013 [facility] History of tobacco use CURRENT TOBACCO USER 01/07/2013 [facility] Sharron [facility] History of tobacco use QUIT TOBACCO IN THE LAST 12 MONTHS 09/18/2011 [facility] History of tobacco use CURRENT TOBACCO USER 07/25/2011 [facility] Sharron O [facility] History of tobacco use QUIT TOBACCO IN THE LAST 12 MONTHS 07/20/2010 [facility] This section is an empty social history section. [facility] Plan of Care List of future care activities from [facility] facilities. Additional future care activities may be listed in the Assessment and Plan section. Date/Time Care Activity Care Activity Detail Facili ty 06/15/2025 AMBULATORY - MEDICINE AMBULATORY - MEDICI NE [facility] Advance Directives List of completed, amended, or rescinded Advance Directives on record at [facility] facilities. An actual copy of the Directive is not included. Date Advance Directive Provider Source 05/07/2023 ADVANCE DIRECTIVE DARLEEN ENRIQUEZ [facility]
[2025-06-13 13:25] LABS: Alanine Aminotransferase 22 U/L (6-50); Albumin Level 4.7 g/dL (3.5-5.1); Alkaline Phosphatase 67 U/L (38-126); Anion Gap 14 mmol/L (4-12); Aspartate Amino Transferase 71 U/L (17-59); Bilirubin,Total 0.5 mg/dL (0.2-1.3); Blood Urea Nitrogen 9 mg/dL (9-20); CRP < 0.5 mg/dL (<1.0); Calcium 9.1 mg/dL (8.4-10.2); Carbon Dioxide 26 mmol/L (22-30); Chloride 102 mmol/L (98-107); Estimated CRCL calculation 116 ml/min; Estimated Glomerular Filt Rate > 60; Glucose 110 mg/dL (65-110); Potassium 3.7 mmol/L (3.4-5.0); Sodium 142 mmol/L (137-145); Total Protein 8.3 g/dL (6.3-8.2)
[2025-06-13 13:34] LABS: Troponin I < 0.012 ng/mL (0.000-0.034)
[2025-06-13 14:49] LABS: Cannabinoid Screen Urine Positive (Negative)
[2025-06-13] MEDS: CEPHALEXIN 500 MG CAPSULE PO (16:10)
== END 2025-06-13 16:18 | disposition home or self-care (01) ==
PROVIDERS: Registered Nurse; Emergency Provider Emergency Medicine
DX: M79.642 Pain in left hand (principal); R00.0 Tachycardia, unspecified
CPT/HCPCS: 36415; 73130; 80053; 80307; 81003; 83605; 84484; 85025; 85610; 85730; 86140; 93005; 99283; A9270